=== PATIENT | female | born 1935 | race Caucasian/White ===

== ENCOUNTER → 2016-09-20 | Outpatient (CLI) | payer MEDICARE, OTHER ==
[2016-09-20 15:35] LABS: PROTHROMBIN TIME 28.8 SEC (11.4-15.4)
== END ==
LOC: OD 14:42
PROVIDERS: ATTEND Internal Medicine
DX: I48.0 Paroxysmal atrial fibrillation (principal)
CPT/HCPCS: 36415; 85610

== ENCOUNTER → 2016-11-14 | Outpatient (CLI) | payer MEDICARE, OTHER ==
[2016-11-14 14:26] LABS: PROTHROMBIN TIME 29.7 SEC (11.4-15.4)
== END ==
LOC: OD 13:34
PROVIDERS: ATTEND Internal Medicine
DX: I48.0 Paroxysmal atrial fibrillation (principal)
CPT/HCPCS: 36415; 85610

== ENCOUNTER → 2016-12-23 | Outpatient (CLI) | payer MEDICARE, OTHER ==
[2016-12-23 10:24] LABS: PROTHROMBIN TIME 26.1 SEC (11.4-15.4)
[2016-12-23 10:52] LABS: ALANINE AMINOTRANSFERASE 16 U/L (9-52); ALBUMIN 3.9 g/dL (3.5-5.0); ALKALINE PHOSPHATASE 77 U/L (38-126); ANION GAP 11 (5-19); ASPARTATE AMINO TRANSFERASE 20 U/L (14-36); BILIRUBIN,DIRECT 0.1 mg/dL (0.0-0.4); BILIRUBIN,TOTAL 0.5 mg/dL (0.2-1.3); BLOOD UREA NITROGEN 21 mg/dL (7-20); CARBON DIOXIDE 27 mmol/L (22-30); CHLORIDE 102 mmol/L (98-107); CHOLESTEROL 248.35 mg/dL (0-200); CREATININE RESULT 1.02 mg/dL (0.52-1.25); Direct HDL 49 mg/dL (>40); GLUCOSE 88 mg/dL (75-110); POTASSIUM 4.6 mmol/L (3.6-5.0); SODIUM 140.3 mmol/L (137-145); TOTAL PROTEIN 6.2 g/dL (6.3-8.2); TRIGLYCERIDES 107 mg/dL (<150)
[2016-12-23 11:03] LABS: DIRECT LDL 131 mg/dL (<100)
== END ==
LOC: OD 09:32
PROVIDERS: ATTEND Internal Medicine
DX: I48.0 Paroxysmal atrial fibrillation (principal); E78.4 Other hyperlipidemia; I25.10 Atherosclerotic heart disease of native coronary artery without angina pectoris; Z95.1 Presence of aortocoronary bypass graft; I34.0 Nonrheumatic mitral (valve) insufficiency; I10 Essential (primary) hypertension; Z79.899 Other long term (current) drug therapy; I25.2 Old myocardial infarction; I35.1 Nonrheumatic aortic (valve) insufficiency; K21.9 Gastro-esophageal reflux disease without esophagitis; R09.89 Other specified symptoms and signs involving the circulatory and respiratory systems
CPT/HCPCS: 36415; 80053; 80061; 85610

== ENCOUNTER → 2017-02-05 | Outpatient (CLI) | payer MEDICARE, OTHER ==
[2017-02-05 14:28] LABS: PROTHROMBIN TIME 35.9 SEC (11.4-15.4)
== END ==
LOC: OD 13:26
PROVIDERS: ATTEND Internal Medicine
DX: I48.0 Paroxysmal atrial fibrillation (principal)
CPT/HCPCS: 36415; 85610

== ENCOUNTER → 2017-03-25 | Outpatient (CLI) | payer MEDICARE, OTHER ==
[2017-03-25 14:31] LABS: PROTHROMBIN TIME 31.5 SEC (11.4-15.4)
== END ==
LOC: OD 13:39
PROVIDERS: ATTEND Internal Medicine
DX: I48.0 Paroxysmal atrial fibrillation (principal)
CPT/HCPCS: 36415; 85610

== ENCOUNTER 2017-04-05 23:47 | Emergency (ER) | payer MEDICARE, OTHER ==
[2017-04-06 00:20] LABS: HEMATOCRIT 28.2 % (36.0-47.0); HEMOGLOBIN 9.5 g/dL (12.0-15.5); HGB HCT DIFFERENCE 0.3; MEAN CORPUSCULAR HEMOGLOBIN 30.9 pg (27.0-33.4); MEAN CORPUSCULAR HGB CONC 33.8 g/dL (32.0-36.0); MEAN CORPUSCULAR VOLUME 91 fl (80-97); RED BLOOD COUNT 3.09 10^6/uL (3.72-5.28); RED CELL DISTRIBUTION WIDTH 14.3 % (11.5-14.0); WHITE BLOOD COUNT 6.9 10^3/uL (4.0-10.5)
[2017-04-06 00:21] LABS: VENOUS BLOOD BASE EXCESS -1.1 mmol/L; VENOUS BLOOD HCO3 22.9 mmol/L (20-32); VENOUS BLOOD PCO2 35.8 mmHg (35-63); VENOUS BLOOD PH 7.42 (7.30-7.42)
[2017-04-06 00:34] LABS: APPEARANCE,URINE CLOUDY; BILIRUBIN,URINE NEGATIVE (NEGATIVE); GLUCOSE, URINE NEGATIVE (NEGATIVE); KETONES,URINE NEGATIVE (NEGATIVE); LEUKOCYTE ESTERASE,URINE MODERATE (NEGATIVE); NITRITE,URINE POSITIVE (NEGATIVE); PROTEIN,URINE 30 mg/dL (NEGATIVE); URINE SPECIFIC GRAVITY 1.017; UROBILINOGEN,URINE NEGATIVE mg/dL (<2.0)
[2017-04-06 00:38] LABS: PROTHROMBIN TIME 41.4 SEC (11.4-15.4)
--- NOTE | 2017-04-06 00:46 | RADIOLOGY REPORT (SQ) ---
EXAM DESCRIPTION: CHEST SINGLE VIEW COMPLETED DATE/TIME: 04/06/2017 12:37 am REASON FOR STUDY: fever COMPARISON: 01/18/2015 NUMBER OF VIEWS: One view. TECHNIQUE: Single frontal radiographic view of the chest acquired. LIMITATIONS: None. FINDINGS: LUNGS AND PLEURA: No opacities, masses or pneumothorax. No pleural effusion. MEDIASTINUM AND HILAR STRUCTURES: No masses. Contour normal. HEART AND VASCULAR STRUCTURES: Heart normal in size. Normal vasculature. Prior CABG. BONES: No acute findings. HARDWARE: CABG hardware. OTHER: No other significant finding. IMPRESSION: NO SIGNIFICANT RADIOGRAPHIC FINDING IN THE CHEST. PRIOR CABG. TECHNICAL DOCUMENTATION: JOB ID: [id number] [employer]- All Rights Reserved
[2017-04-06 01:30] LABS: BAND NEUTROPHILS % (MANUAL) 2 % (3-5); BASOPHILS % (MANUAL) 1 % (0-2); EOSINOPHILS % (MANUAL) 0 % (0-6); LYMPHOCYTES % (MANUAL) 4 % (13-45); TOTAL CELLS COUNTED 100
[2017-04-06 01:31] LABS: TOXIC GRANULATION SLIGHT; TOXIC VACUOLATION PRESENT
[2017-04-06 01:33] LABS: ANISOCYTOSIS SLIGHT; OVALOCYTES SLIGHT; POIKILOCYTOSIS 1+; POLYCHROMASIA SLIGHT; TEAR DROP CELLS SLIGHT
[2017-04-06] MEDS ORDERED: SULFAMETHOXAZOLE/TRIMETHOPRIM 800-160 MG TABLET PO ONE (01:46)
--- NOTE | 2017-04-06 01:48 | ER Document Report ---
ED General - General Stated Complaint: WEAKNESS,FEVER Time Seen by Provider: 04/06/17 01:11 Mode of Arrival: Ambulatory Information source: Patient TRAVEL OUTSIDE OF THE [place] IN LAST 30 DAYS: No - HPI Patient complains to provider of: Generalized weakness, dysuria Onset: Yesterday Onset/Duration: Gradual Quality of pain: Achy Severity: Mild Associated symptoms: Body/muscle aches, Nausea, Vomiting Exacerbated by: Denies Relieved by: Denies Similar symptoms previously: Yes Recently seen / treated by doctor: Yes Notes: Patient is an 82-year-old female who presents to the emergency room complaining of generalized weakness with diffuse arthralgic pain, nausea with one episode of vomiting that occurred yesterday, as well as dysuria and urinary frequency, patient recently completed a course of Keflex but her symptoms have not improved at all, she denies any chest pain or shortness of breath, no fevers, no cough, cold or congestion, denies any blood in her urine or stools, she does report dark colored stools because of iron use, but no change in this recently, patient currently takes Coumadin alternating 3 and 4 mg every other day, reports she takes this because of a history of CVA - Related Data Allergies/Adverse Reactions: levofloxacin [From Levaquin] Allergy (Severe, Verified 01/29/13 23:55) Diarrhea Past Medical History - General Information source: Patient - Social History Smoking Status: Never Smoker Family History: None - Past Medical History Cardiac Medical History: Reports: Hx Coronary Artery Disease, Hx Heart Attack, Hx Hypercholesterolemia, Hx Hypertension Denies: Hx Atrial Fibrillation, Hx Congestive Heart Failure, Hx Peripheral Vascular Disease, Hx Heart Murmur Pulmonary Medical History: Denies: Hx Asthma, Hx Bronchitis, Hx COPD, Hx Pneumonia, Hx Tuberculosis Neurological Medical History: Reports: Hx Cerebrovascular Accident GI Medical History: Reports: Hx Gastroesophageal Reflux Disease Musculoskeltal Medical History: Reports Hx Arthritis Past Surgical History: Reports: Hx Cardiac Surgery - bypass 1993, Hx Coronary Artery Bypass Graft, Hx Coronary Stent. Denies: Hx Appendectomy, Hx Bowel Surgery, Hx Section, Hx Cholecystectomy, Hx Gastric Bypass Surgery, Hx Herniorrhaphy, Hx Hysterectomy, Hx Mastectomy, Hx Pacemaker, Hx Tonsillectomy, Hx Tubal Ligation - Immunizations Hx Diphtheria, Pertussis, Tetanus Vaccination: No Review of Systems - Review of Systems Constitutional: Weakness EENT: No symptoms reported Cardiovascular: No symptoms reported Respiratory: No symptoms reported Gastrointestinal: No symptoms reported Genitourinary: See HPI Female Genitourinary: No symptoms reported Musculoskeletal: No symptoms reported Skin: No symptoms reported Hematologic/Lymphatic: No symptoms reported Neurological/Psychological: No symptoms reported -: Yes All other systems reviewed and negative Physical Exam - Vital signs Vitals: Resp Pulse Ox 20 94 04/05/17 23:57 04/05/17 23:57 Interpretation: Normal - General General appearance: Appears well, Alert - HEENT Head: Normocephalic, Atraumatic Eyes: Normal Pupils: PERRL - Respiratory Respiratory status: No respiratory distress Chest status: Nontender Breath sounds: Normal Chest palpation: Normal - Cardiovascular Rhythm: Regular Heart sounds: Normal auscultation Murmur: No - Abdominal Inspection: Normal Distension: No distension Bowel sounds: Normal Tenderness: Nontender Organomegaly: No organomegaly - Back Back: Normal, Nontender - Extremities General upper extremity: Normal inspection, Nontender, Normal color, Normal ROM , Normal temperature General lower extremity: Normal inspection, Nontender, Normal color, Normal ROM , Normal temperature, Normal weight bearing. No: Fouzia's sign - Neurological Neuro grossly intact: Yes Cognition: Normal Orientation: AAOx4 [place] Coma Scale Eye Opening: Spontaneous Mahesh Coma Scale Verbal: Oriented Mahesh Coma Scale Motor: Obeys Commands Mahesh Coma Scale Total: 15 Speech: Normal Motor strength normal: LUE, RUE, LLE, RLE Sensory: Normal - Psychological Associated symptoms: Normal affect, Normal mood - Skin Skin Temperature: Warm Skin Moisture: Dry Skin Color: Normal Course - Re-evaluation Re-evalutation: 04/06/17 06:37 Patient resting comfortably, lab and imaging findings were discussed with patient at bedside which are consistent with a urinary tract infection, anemia which is consistent with previous labs, and an increased INR 4.08, patient was started on antibiotics for treatment of her urinary tract infection, which was actually changed because she previously took Keflex, she was started on Bactrim now, she was also advised to take Coumadin 3 mg on a daily basis instead of alternating with the 4 mg dose as her INR is elevated today, and to follow-up with her primary care provider in 1 week's time or return to the emergency room immediately if symptoms worsen, patient acknowledges understanding and agreement with this plan - Vital Signs Vital signs: Temp Pulse Resp BP Pulse Ox 98.7 F 72 18 122/72 96 04/06/17 03:09 04/06/17 03:09 04/06/17 03:09 04/06/17 03:09 04/06/17 03:09 - Laboratory Result Diagrams: 04/05/17 23:55 04/06/17 01:32 Laboratory results interpreted by me: 04/05/17 04/05/17 04/05/17 23:55 23:55 23:55 RBC 3.09 L Hgb 9.5 L Hct 28.2 L RDW 14.3 H Seg Neuts % (Manual) 90 H Band Neutrophils % 2 L Lymphocytes % (Manual) 4 L Abs Lymphs (Manual) 0.3 L PT 41.4 H Sodium BUN Creatinine Est GFR ( Amer) Est GFR (Non-Af Amer) Glucose Calcium Albumin Urine Protein 30 H Urine Blood MODERATE H Urine Nitrite POSITIVE H Ur Leukocyte Esterase MODERATE H Urine Ascorbic Acid 40 H 04/06/17 01:32 RBC Hgb Hct RDW Seg Neuts % (Manual) Band Neutrophils % Lymphocytes % (Manual) Abs Lymphs (Manual) PT Sodium 132.8 L BUN 34 H Creatinine 1.43 H Est GFR ( Amer) 43 L Est GFR (Non-Af Amer) 35 L Glucose 140 H Calcium 8.2 L Albumin 3.4 L Urine Protein Urine Blood Urine Nitrite Ur Leukocyte Esterase Urine Ascorbic Acid - Diagnostic Test Radiology reviewed: Image reviewed, Reports reviewed Discharge - Discharge Clinical Impression: UTI (urinary tract infection) Qualifiers: Urinary tract infection type: site unspecified Hematuria presence: without hematuria Qualified Code(s): N39.0 - Urinary tract infection, site not specified Condition: Stable Disposition: HOME, SELF-CARE Instructions: Trimethoprim-Sulfa ([facility]), Urinary Tract Infection ([facility]) Additional Instructions: Follow up with your primary care provider in one to 2 days. Return to the emergency room immediately if symptoms worsen or any additional concerns. Take your Coumadin at 3 mg daily instead of alternating 3 and 4 mg. Follow-up with your primary care provider for repeat INR/Coumadin level in 1 week. Prescriptions: Sulfamethoxazole/Trimethoprim [Bactrim Ds Tablet] 1 each PO BID #20 tablet Referrals: ETHAN MCMAHON MD [Primary Care Provider] - Follow up as needed
[2017-04-06 01:54] LABS: ALANINE AMINOTRANSFERASE 27 U/L (9-52); ALBUMIN 3.4 g/dL (3.5-5.0); ALKALINE PHOSPHATASE 69 U/L (38-126); ANION GAP 9 (5-19); ASPARTATE AMINO TRANSFERASE 23 U/L (14-36); BILIRUBIN,DIRECT 0.3 mg/dL (0.0-0.4); BILIRUBIN,TOTAL 0.6 mg/dL (0.2-1.3); BLOOD UREA NITROGEN 34 mg/dL (7-20); CALCIUM 8.2 mg/dL (8.4-10.2); CARBON DIOXIDE 23 mmol/L (22-30); CHLORIDE 101 mmol/L (98-107); CREATININE RESULT 1.43 mg/dL (0.52-1.25); GLUCOSE 140 mg/dL (75-110); SODIUM 132.8 mmol/L (137-145); TOTAL PROTEIN 6.3 g/dL (6.3-8.2)
[2017-04-06 03:10] VITALS: BP 122/72
== END 2017-04-06 03:11 | disposition home or self-care (01) ==
LOC: ER 23:47
DX: N39.0 Urinary tract infection, site not specified (principal); D64.9 Anemia, unspecified; I25.10 Atherosclerotic heart disease of native coronary artery without angina pectoris; I25.2 Old myocardial infarction; E78.00 Pure hypercholesterolemia, unspecified; I10 Essential (primary) hypertension; K21.9 Gastro-esophageal reflux disease without esophagitis; Z95.1 Presence of aortocoronary bypass graft; Z88.1 Allergy status to other antibiotic agents
CPT/HCPCS: 99285; 51701; 36415; 87040; 87086; 85025; 85610; 87077; 87088; 80053; 81001; 87186; 82803; 83605; 71010; A9270

== ENCOUNTER 2017-04-10 11:19 | Inpatient (IN) | payer MEDICARE, OTHER ==
--- NOTE | 2017-04-10 11:47 | ER Document Report ---
ED Medical Screen (RME) - General Chief Complaint: Nose Bleed Stated Complaint: NOSE BLEED Time Seen by Provider: 04/10/17 11:45 Notes: Patient presents with nosebleed that started this a.m. She states she recently had her INR checked past Friday and it was elevated to 4. She states that her Coumadin dose at that time was decreased from 4 mg to 3 mg. She states she also noticed blood in her urine this morning. She states she does not feel lightheaded or dizzy. TRAVEL OUTSIDE OF THE [place] IN LAST 30 DAYS: No - Related Data Allergies/Adverse Reactions: levofloxacin [From Levaquin] Allergy (Severe, Verified 04/10/17 11:26) Diarrhea Past Medical History - Past Medical History Cardiac Medical History: Reports: Hx Coronary Artery Disease, Hx Heart Attack, Hx Hypercholesterolemia, Hx Hypertension Denies: Hx Atrial Fibrillation, Hx Congestive Heart Failure, Hx Peripheral Vascular Disease, Hx Heart Murmur Pulmonary Medical History: Denies: Hx Asthma, Hx Bronchitis, Hx COPD, Hx Pneumonia, Hx Tuberculosis Neurological Medical History: Reports: Hx Cerebrovascular Accident Renal/ Medical History: Denies: Hx Peritoneal Dialysis GI Medical History: Reports: Hx Gastroesophageal Reflux Disease Musculoskeltal Medical History: Reports Hx Arthritis Past Surgical History: Reports: Hx Cardiac Surgery - bypass 1993, Hx Coronary Artery Bypass Graft, Hx Coronary Stent. Denies: Hx Appendectomy, Hx Bowel Surgery, Hx Section, Hx Cholecystectomy, Hx Gastric Bypass Surgery, Hx Herniorrhaphy, Hx Hysterectomy, Hx Mastectomy, Hx Pacemaker, Hx Tonsillectomy, Hx Tubal Ligation - Immunizations Hx Diphtheria, Pertussis, Tetanus Vaccination: No Physical Exam - Vital signs Vitals: Temp Pulse Resp BP Pulse Ox 97.9 F 73 16 151/64 H 98 04/10/17 11:27 04/10/17 11:27 04/10/17 11:27 04/10/17 11:27 04/10/17 11:27 Course - Vital Signs Vital signs: Temp Pulse Resp BP Pulse Ox 97.9 F 73 16 151/64 H 98 04/10/17 11:27 04/10/17 11:27 04/10/17 11:27 04/10/17 11:27 04/10/17 11:27
[2017-04-10 12:40] LABS: ABSOLUTE EOSINOPHILS # (AUTO) 0.1 10^3/uL (0.0-0.6); ABSOLUTE LYMPHOCYTES (AUTO) 0.4 10^3/uL (0.5-4.7); ABSOLUTE MONOCYTES (AUTO) 0.4 10^3/uL (0.1-1.4); ABSOLUTE NEUT (AUTO) 4.5 10^3/uL (1.7-8.2); BASOPHILS % (AUTO) 0.5 % (0-2); EOSINOPHILS % (AUTO) 1.4 % (0-6); HEMATOCRIT 27.5 % (36.0-47.0); HEMOGLOBIN 9.3 g/dL (12.0-15.5); HGB HCT DIFFERENCE 0.4; LYMPHOCYTES % (AUTO) 8.2 % (13-45); MEAN CORPUSCULAR HEMOGLOBIN 30.3 pg (27.0-33.4); MEAN CORPUSCULAR VOLUME 89 fl (80-97); MONOCYTES % (AUTO) 8.2 % (3-13); RED BLOOD COUNT 3.08 10^6/uL (3.72-5.28); SEGMENTED NEUTROPHILS % (AUTO) 81.7 % (42-78); WHITE BLOOD COUNT 5.5 10^3/uL (4.0-10.5)
[2017-04-10 12:50] LABS: APPEARANCE,URINE CLOUDY; BILIRUBIN,URINE NEGATIVE (NEGATIVE); GLUCOSE, URINE NEGATIVE (NEGATIVE); KETONES,URINE NEGATIVE (NEGATIVE); LEUKOCYTE ESTERASE,URINE TRACE (NEGATIVE); NITRITE,URINE NEGATIVE (NEGATIVE); PROTEIN,URINE 100 mg/dL (NEGATIVE); UROBILINOGEN,URINE NEGATIVE mg/dL (<2.0)
[2017-04-10 13:01] LABS: ANION GAP 14 (5-19); BLOOD UREA NITROGEN 28 mg/dL (7-20); CALCIUM 8.6 mg/dL (8.4-10.2); CARBON DIOXIDE 23 mmol/L (22-30); CHLORIDE 98 mmol/L (98-107); CREATININE RESULT 1.32 mg/dL (0.52-1.25); GLUCOSE 87 mg/dL (75-110); POTASSIUM 4.8 mmol/L (3.6-5.0)
[2017-04-10] MEDS ORDERED: OXYMETAZOLINE HCL 0.05% NASAL SPRAY 15 ML BOTTLE NASL ONE (13:40)
[2017-04-10 14:12] LABS: PROTHROMBIN TIME > 120.0 SEC (11.4-15.4)
[2017-04-10] MEDS ORDERED: PHYTONADIONE 5 MG TABLET PO ONE (14:18)
--- NOTE | 2017-04-10 15:04 | ER Document Report ---
ED ENT - General Chief Complaint: Nose Bleed Stated Complaint: NOSE BLEED Time Seen by Provider: 04/10/17 11:45 Mode of Arrival: Ambulatory Information source: Patient Notes: Patient is an 82-year-old female who presents to the ER today for nosebleed and hematuria that she noticed this morning at 7:30 AM. Patient is on warfarin and has a history of stroke, possible A. fib, and patient was told on the of this month here at the emergency department to decrease her warfarin to 2 mg every other day and 3 mg on the other days. It is unknown if she has been following this protocol as she cannot really tell me how she takes the warfarin today. She mentioned something about twice a day and then goes back to once a day. Her INR at that time was 4.08. She has not been doing anything for the nosebleed, not holding any pressure, just blotting it with a paper towel all morning. TRAVEL OUTSIDE OF THE [place] IN LAST 30 DAYS: No - Related Data Allergies/Adverse Reactions: levofloxacin [From Lev[employer] Systemsuin] Allergy (Severe, Verified 04/10/17 11:26) Diarrhea Home Medications: Current Home Medications Cetirizine HCl [Zyrtec] 10 mg PO DAILY 04/10/17 [History] Cyclosporine [Restasis Multidose] 1 drop OP BID 04/10/17 [History] Docusate Sodium [Colace 100 mg Capsule] 100 mg PO BID 04/10/17 [History] Esomeprazole Magnesium [Nexium] 40 mg PO DAILY 04/10/17 [History] Ferrous Sulfate 325 mg PO DAILY 04/10/17 [History] [place]-3 Fatty Acids/Fish Oil [Fish Oil 1,000 Mg Capsule] 4 each PO DAILY [History] Tramadol HCl 50 mg PO Q8H 04/10/17 [History] Ubidecarenone [Co Q-10] 2 tab PO DAILY 04/10/17 [History] Valsartan [Diovan 160 mg Tablet] 160 mg PO DAILY 04/10/17 [History] Warfarin Sodium [Coumadin] 3 mg PO DAILY 04/10/17 [History] Past Medical History - General Information source: Patient - Social History Smoking Status: Never Smoker Frequency of alcohol use: None Drug Abuse: None Family History: None Patient has suicidal ideation: No Patient has homicidal ideation: No - Past Medical History Cardiac Medical History: Reports: Hx Coronary Artery Disease, Hx Heart Attack, Hx Hypercholesterolemia, Hx Hypertension Denies: Hx Atrial Fibrillation, Hx Congestive Heart Failure, Hx Peripheral Vascular Disease, Hx Heart Murmur Pulmonary Medical History: Denies: Hx Asthma, Hx Bronchitis, Hx COPD, Hx Pneumonia, Hx Tuberculosis Neurological Medical History: Reports: Hx Cerebrovascular Accident Renal/ Medical History: Denies: Hx Peritoneal Dialysis GI Medical History: Reports: Hx Gastroesophageal Reflux Disease Musculoskeltal Medical History: Reports Hx Arthritis Past Surgical History: Reports: Hx Cardiac Surgery - bypass 1993, Hx Coronary Artery Bypass Graft, Hx Coronary Stent. Denies: Hx Appendectomy, Hx Bowel Surgery, Hx Section, Hx Cholecystectomy, Hx Gastric Bypass Surgery, Hx Herniorrhaphy, Hx Hysterectomy, Hx Mastectomy, Hx Pacemaker, Hx Tonsillectomy, Hx Tubal Ligation - Immunizations Hx Diphtheria, Pertussis, Tetanus Vaccination: No Review of Systems - Review of Systems Constitutional: No symptoms reported EENT: See HPI Cardiovascular: No symptoms reported Respiratory: No symptoms reported Gastrointestinal: No symptoms reported Genitourinary: See HPI Female Genitourinary: No symptoms reported Musculoskeletal: No symptoms reported Skin: No symptoms reported Hematologic/Lymphatic: See HPI Neurological/Psychological: No symptoms reported Physical Exam - Vital signs Vitals: Temp Pulse Resp BP Pulse Ox 97.9 F 73 16 151/64 H 98 04/10/17 11:27 04/10/17 11:27 04/10/17 11:27 04/10/17 11:27 04/10/17 11:27 - Notes Notes: PHYSICAL EXAMINATION: GENERAL: Well-appearing and in no acute distress. HEAD: Atraumatic, normocephalic. EYES: Pupils equal round and reactive to light, extraocular movements intact, sclera anicteric, conjunctiva are normal. ENT: ear canals without erythema or foreign body, TMs pearly orellana with good bony landmarks, left nare with minimal bright red blood, oropharynx with minimal blood in posterior pharynx Moist mucous membranes. NECK: Normal range of motion, supple without lymphadenopathy LUNGS: CTAB and equal. No wheezes rales or rhonchi. HEART: Regular rate and rhythm without murmurs ABDOMEN: Soft, no tenderness. No guarding, no rebound rectal: normal tone, no bleeding noted BACK: no vertebral tenderness, normal ROM GI/: no CVA tenderness EXTREMITIES: Normal range of motion, no pitting edema. No cyanosis. NEUROLOGICAL: Cranial nerves grossly intact. Normal sensory/motor exams. PSYCH: Normal mood, normal affect. SKIN: Warm, Dry, normal turgor, no rashes or lesions noted Course - Re-evaluation Re-evalutation: 04/10/17 15:47 Controlled with Afrin and cotton balls that were left in for greater than half an hour, stool occult was negative for blood. Vital signs are all stable and lab work is unremarkable, hemoglobin is essentially the same as on the of this month, 9.3. Patient's INR is not calculable with a PT greater than 120. They did call initially with the first draw tell the nurse verbally that the INR was 15.83. Patient was given oral vitamin K at this time. I did call Dr. Campoverde, agrees to accept patient at this time and advises fresh frozen plasma and another 5 mg of subcutaneous vitamin K. Nosebleed has stopped. 04/10/17 15:49 04/10/17 18:13 - Vital Signs Vital signs: Temp Pulse Resp BP Pulse Ox 97.8 F 62 14 132/85 H 93 04/10/17 15:29 04/10/17 15:29 04/10/17 17:45 04/10/17 17:45 04/10/17 17:45 - Laboratory Result Diagrams: 04/10/17 12:00 04/10/17 12:00 Laboratory results interpreted by me: 04/10/17 04/10/17 04/10/17 12:00 12:00 12:00 RBC 3.08 L Hgb 9.3 L Hct 27.5 L Seg Neutrophils % 81.7 H Lymphocytes % 8.2 L Absolute Lymphocytes 0.4 L PT Sodium 135.0 L BUN 28 H Creatinine 1.32 H Est GFR ( Amer) 47 L Est GFR (Non-Af Amer) 39 L Urine Protein 100 H Urine Blood LARGE H Ur Leukocyte Esterase TRACE H Urine Ascorbic Acid 40 H 04/10/17 13:22 RBC Hgb Hct Seg Neutrophils % Lymphocytes % Absolute Lymphocytes PT > 120.0 H* Sodium BUN Creatinine Est GFR ( Amer) Est GFR (Non-Af Amer) Urine Protein Urine Blood Ur Leukocyte Esterase Urine Ascorbic Acid Discharge - Discharge Clinical Impression: Elevated INR, Nosebleed Warfarin toxicity Qualifiers: Encounter type: initial encounter Injury intent: accidental or unintentional Qualified Code(s): T45.511A - Poisoning by anticoagulants, accidental ( unintentional), initial encounter Hematuria Qualifiers: Hematuria type: unspecified type Qualified Code(s): R31.9 - Hematuria, unspecified Admitting Provider: Hospitalist Unit Admitted: [facility]
[2017-04-10] MEDS ORDERED: PHYTONADIONE INJ 10 MG/1 ML AMPULE SUBCUT ONE (15:39)
[2017-04-10] MEDS ORDERED: NORMAL SALINE 250 ML IV PRN ×3 (15:39→22:27)
--- NOTE | 2017-04-10 17:23 | EKG REPORT ---
SEVERITY:- NORMAL ECG - SINUS RHYTHM : Confirmed by: Mary Eugene MD 10-Apr-2017 17:22:00
--- NOTE | 2017-04-10 17:42 | PDOC H&P ---
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 The patient was seen in the emergency room a few days ago for urinary symptoms found to have a urinary tract infection and was given Bactrim. At that time her INR was 4 and was told to decrease her warfarin to 3 mg a day which the patient complied. Earlier today she developed nosebleeding. Subsequently this was followed by gross hematuria. The patient then was brought to the emergency room for evaluation. The INR reportedly was immeasurable with a PT greater than 120. The patient was given vitamin K and was referred for admission. Patient denies any headache or dizziness. Denies any hemoptysis nor any melena hematochezia or hematemesis. Patient denies any chills or fever associated with a urinary tract infection nor any more dysuria. On review of her culture perform about 45 days ago showing E. coli in the urine as well as in the blood. Organism is sensitive to Bactrim. Past Medical History Cardiac Medical History: Reports: Coronary Artery Disease, Myocardial Infarction , Hyperlipidema, Hypertension Denies: Atrial Fibrillation, Congestive Heart Failure, Peripheral Vascular Disease, Heart Murmur Pulmonary Medical History: Denies: Asthma, Bronchitis, Chronic Obstructive Pulmonary Disease (COPD), Pneumonia, Tuberculosis Neurological Medical History: Reports: Ischemic CVA GI Medical History: Reports: Gastroesophageal Reflux Disease Musculoskeltal Medical History: Reports: Arthritis Hematology: Denies: Anemia Past Surgical History Past Surgical History: Reports: Coronary Artery Bypass Graft, Coronary Stent Denies: Appendectomy, Section, Cholecystectomy, Gastric Bypass Surgery, Herniorrhaphy, Hysterectomy, Mastectomy, Pacemaker, Tonsillectomy, Tubal Ligation Social History Information Source: Patient Smoking Status: Never Smoker Frequency of Alcohol Use: None Hx Recreational Drug Use: No Family History Family History: None Parental Family History Reviewed: Yes Children Family History Reviewed: Yes Sibling(s) Family History Reviewed.: Yes Medication/Allergy Home Medications: Ascorbic Acid [Vitamin C 500 Mg Tablet] 1,000 mg PO DAILY 11/12/11 Aspirin [Ecotrin 81 mg EC Tablet] 81 mg PO DAILY 11/12/11 Isosorbide Mononitrate [Imdur] 120 mg PO DAILY 11/12/11 Nitroglycerin [Nitrolingual] 4.9 gm TL PRN PRN 11/12/11 Ranolazine [Ranexa 500 Mg Tab.Sr] 500 mg PO DAILY 11/12/11 Cetirizine HCl [Zyrtec] 10 mg PO DAILY 04/10/17 Cyclosporine [Restasis Multidose] 1 drop OP BID 04/10/17 Docusate Sodium [Colace 100 mg Capsule] 100 mg PO BID 04/10/17 Esomeprazole Magnesium [Nexium] 40 mg PO DAILY 04/10/17 Ferrous Sulfate 325 mg PO DAILY 04/10/17 [place]-3 Fatty Acids/Fish Oil [Fish Oil 1,000 Mg Capsule] 4 each PO DAILY Tramadol HCl 50 mg PO Q8H 04/10/17 Ubidecarenone [Co Q-10] 2 tab PO DAILY 04/10/17 Valsartan [Diovan 160 mg Tablet] 160 mg PO DAILY 04/10/17 Warfarin Sodium [Coumadin] 3 mg PO DAILY 04/10/17 Allergies/Adverse Reactions: levofloxacin [From Levaquin] Allergy (Severe, Verified 04/10/17 11:26) Diarrhea Review of Systems Constitutional: ABSENT: chills, fever(s), headache(s), weakness, weight gain, weight loss Eyes: ABSENT: visual disturbances Ears: ABSENT: hearing changes Nose, Mouth, and Throat: ABSENT: mouth pain, sore throat Cardiovascular: ABSENT: chest pain, dyspnea on exertion, edema, orthropnea, palpitations Respiratory: ABSENT: cough, dyspnea, hemoptysis, sputum Gastrointestinal: ABSENT: abdominal pain, constipation, diarrhea, hematemesis, hematochezia, melena, nausea, vomiting Genitourinary: PRESENT: hematuria. ABSENT: dysuria Musculoskeletal: ABSENT: joint swelling Integumentary: ABSENT: pruritus, rash, wounds Neurological: ABSENT: abnormal gait, abnormal speech, confusion, dizziness, focal weakness - none new, syncope Psychiatric: ABSENT: anxiety, depression, homidical ideation, suicidal ideation Endocrine: ABSENT: cold intolerance, heat intolerance, polydipsia, polyuria Hematologic/Lymphatic: PRESENT: easy bleeding, easy bruising Physical Exam Vital Signs: Temp Pulse Resp BP Pulse Ox 97.8 F 62 16 160/64 H 96 07/27/17 15:29 04/10/17 15:29 04/10/17 15:29 04/10/17 15:29 04/10/17 15:29 General appearance: PRESENT: no acute distress, cooperative, obese Head exam: PRESENT: atraumatic, normocephalic Eye exam: PRESENT: conjunctiva pink, EOMI, PERRLA. ABSENT: scleral icterus Ear exam: PRESENT: normal external ear exam. ABSENT: drainage Mouth exam: PRESENT: moist, neck supple, tongue midline Throat exam: ABSENT: post pharyngeal erythema, tonsillar erythema Neck exam: ABSENT: carotid bruit, JVD, lymphadenopathy, thyromegaly Respiratory exam: PRESENT: clear to auscultation wojciech. ABSENT: rales, rhonchi, wheezes Cardiovascular exam: PRESENT: RRR, systolic murmur - Aortic area. ABSENT: diastolic murmur, rubs Pulses: PRESENT: normal dorsalis pedis pul Vascular exam: PRESENT: normal capillary refill GI/Abdominal exam: PRESENT: normal bowel sounds, soft. ABSENT: distended, guarding, mass, organolmegaly, rebound, tenderness Rectal exam: PRESENT: deferred Extremities exam: PRESENT: full ROM. ABSENT: calf tenderness, clubbing, pedal edema Neurological exam: PRESENT: alert, awake, oriented to person, oriented to place , oriented to time, oriented to situation, CN II-XII grossly intact. ABSENT: motor sensory deficit Psychiatric exam: PRESENT: appropriate affect, normal mood. ABSENT: homicidal ideation, suicidal ideation Skin exam: PRESENT: dry, intact, warm. ABSENT: cyanosis, rash Results Laboratory Results: 04/10/17 16:12 Blood Type O POSITIVE Antibody Screen NEGATIVE Assessment & Plan - Diagnosis (1) Sepsis Qualifiers: Sepsis type: Escherichia coli Qualified Code(s): A41.51 - Sepsis due to Escherichia coli [E. coli] Is this a current diagnosis for this admission?: Yes (2) Hematuria Qualifiers: Hematuria type: unspecified type Qualified Code(s): R31.9 - Hematuria, unspecified Is this a current diagnosis for this admission?: Yes (4) Elevated INR Is this a current diagnosis for this admission?: Yes (5) Warfarin toxicity Qualifiers: Encounter type: initial encounter Injury intent: accidental or unintentional Qualified Code(s): T45.511A - Poisoning by anticoagulants, accidental (unintentional), initial encounter Is this a current diagnosis for this admission?: Yes (6) UTI (urinary tract infection) Qualifiers: Urinary tract infection type: site unspecified Hematuria presence: without hematuria Qualified Code(s): N39.0 - Urinary tract infection, site not specified Is this a current diagnosis for this admission?: Yes (7) Coronary artery disease Qualifiers: Coronary Disease-Associated Artery/Lesion type: [place] artery [place] vs. transplanted heart: [place] heart Associated angina: without angina Qualified Code(s): I25.10 - Atherosclerotic heart disease of [place] coronary artery without angina pectoris Is this a current diagnosis for this admission?: Yes (8) Hyperlipidemia Qualifiers: Hyperlipidemia type: unspecified Qualified Code(s): E78.5 - Hyperlipidemia, unspecified Is this a current diagnosis for this admission?: Yes (9) Essential hypertension Is this a current diagnosis for this admission?: Yes (10) GERD (gastroesophageal reflux disease) Qualifiers: Esophagitis presence: without esophagitis Qualified Code(s): K21.9 - Gastro-esophageal reflux disease without esophagitis Is this a current diagnosis for this admission?: Yes (11) History of stroke Is this a current diagnosis for this admission?: Yes - Time Time Spent: 50 to 70 Minutes - Inpatient Certification Based on my medical assessment, after consideration of the patient's comorbidities, presenting symptoms, or acuity I expect that the services needed warrant INPATIENT care.: Yes I certify that my determination is in accordance with my understanding of Medicare's requirements for reasonable and necessary INPATIENT services [42 CFR 412.3e].: Yes Medical Necessity: Need Close Monitoring Due to Risk of Patient Decompensation, Need For IV Fluids, Need for IV Antibiotics, Risk of Complication if Not Cared For in Hospital Post Hospital Care: D/C Professional Caster Documentation - Plan Summary Plan Summary: We are going to serially monitor hemoglobin hematocrit. We will transfuse as needed if it falls below 8. In the meantime we will transfuse 2 units of FFP. Oral vitamin K has already been given in the emergency room. We will monitor PT /INR closely. We will hold her aspirin as well. I will continue the patient's cardiac medications however at this time. We will continue to monitor. In the meantime we will resend cultures of the blood and urine and begin the patient on ceftriaxone. Further testing depends on the initial evaluation as outlined above.
[2017-04-10] MEDS ORDERED: CYCLOSPORINE OP SCH (18:00)
[2017-04-10] MEDS ORDERED: NORMAL SALINE 1000 ML 1,000 ML IV PRN (18:02)
[2017-04-10] MEDS: DOCUSATE SODIUM 100 MG CAPSULE PO SCH (19:53)
[2017-04-10] MEDS: CEFTRIAXONE 1 GM/D5W RTU 50 ML IV SCH (19:54)
--- NOTE | 2017-04-10 22:31 | Progress Note ---
Provider Note Provider Note: 04/10/17 Contacted by patient's floor nurse that blood transfusion permit had not been signed; ER staff had earlier ordered 2 units FFP. At 10:20 PM, I went to the patient's bedside. Her floor nurse Tucker present. Still having small amounts of epistaxis, and Per nursing staff, hematuria. Scheduled to receive 2 units of fresh frozen plasma. Distant history of prior blood transfusion, without problems. Patient understands the risks associated with blood product transfusion to include, but not be limited to, transfusion reaction, which can be fatal, along with hepatitis and/or HIV viruses. Discussed in lay person's terms. Her conversation is lucid and appropriate. Patient agrees to undergo transfusion of blood products.
[2017-04-10 22:50] LABS: HEMOGLOBIN 9.1 g/dL (12.0-15.5); HGB HCT DIFFERENCE 0.3; MEAN CORPUSCULAR HEMOGLOBIN 30.4 pg (27.0-33.4); MEAN CORPUSCULAR HGB CONC 33.9 g/dL (32.0-36.0); MEAN CORPUSCULAR VOLUME 90 fl (80-97); RED BLOOD COUNT 3.01 10^6/uL (3.72-5.28); RED CELL DISTRIBUTION WIDTH 14.1 % (11.5-14.0); WHITE BLOOD COUNT 6.2 10^3/uL (4.0-10.5)
[2017-04-11 06:16] LABS: PARTIAL THROMBOPLASTIN TIME 63.2 SEC (23.5-35.8)
[2017-04-11 06:23] LABS: HEMATOCRIT 22.7 % (36.0-47.0); HGB HCT DIFFERENCE 0.7; MEAN CORPUSCULAR HEMOGLOBIN 30.7 pg (27.0-33.4); MEAN CORPUSCULAR HGB CONC 34.4 g/dL (32.0-36.0); MEAN CORPUSCULAR VOLUME 89 fl (80-97); RED BLOOD COUNT 2.54 10^6/uL (3.72-5.28); RED CELL DISTRIBUTION WIDTH 13.9 % (11.5-14.0)
[2017-04-11 06:31] LABS: PROTHROMBIN TIME 22.6 SEC (11.4-15.4)
[2017-04-11 06:51] LABS: HEMOGLOBIN 7.8 g/dL (12.0-15.5)
[2017-04-11] MEDS ORDERED: NORMAL SALINE 250 ML IV PRN ×2 (06:58)
[2017-04-11] MEDS ORDERED: NORMAL SALINE 1000 ML 1,000 ML IV PRN (09:28)
--- NOTE | 2017-04-11 09:34 | PDOC PROGRESS REPORT ---
Subjective Progress Note for:: 04/11/17 Subjective:: Patient reports nosebleeding happen again and never stop since yesterday. Hematuria however is less. Denies chills or fever, nausea or vomiting, back pain, diarrhea, shortness of breath nor chest pain. school lunch monitor remained sinus. No reported atrial fibrillation. Physical Exam Vital Signs: Temp Pulse Resp BP Pulse Ox 98.2 F 88 16 133/69 H 99 04/11/17 08:50 04/11/17 08:50 04/11/17 08:50 04/11/17 08:50 04/11/17 08:50 Intake & Output 04/10/17 04/11/17 04/12/17 06:59 06:59 06:59 Intake Total 1208 0 Output Total 1150 Balance 58 0 Weight 80.4 kg General appearance: PRESENT: no acute distress, cooperative, obese Head exam: PRESENT: normocephalic Eye exam: PRESENT: EOMI Mouth exam: PRESENT: moist, neck supple Neck exam: ABSENT: JVD Respiratory exam: PRESENT: clear to auscultation wojciech. ABSENT: rhonchi, wheezes Cardiovascular exam: PRESENT: irregular rhythm, RRR. ABSENT: gallop GI/Abdominal exam: PRESENT: normal bowel sounds, soft. ABSENT: distended, tenderness Extremities exam: ABSENT: pedal edema Neurological exam: PRESENT: alert, awake, oriented to situation Skin exam: PRESENT: dry, warm. ABSENT: cyanosis Results Laboratory Results: 04/11/17 05:53 04/10/17 04/11/17 22:37 05:53 WBC 6.2 7.0 RBC 3.01 L 2.54 L Hgb 9.1 L 7.8 L Hct 27.0 L 22.7 L MCV 90 89 MCH 30.4 30.7 MCHC 33.9 34.4 RDW 14.1 H 13.9 Plt Count 169 154 Assessment & Plan - Diagnosis (1) Sepsis Qualifiers: Sepsis type: Escherichia coli Qualified Code(s): A41.51 - Sepsis due to Escherichia coli [E. coli] Is this a current diagnosis for this admission?: Yes (2) Hematuria Qualifiers: Hematuria type: unspecified type Qualified Code(s): R31.9 - Hematuria, unspecified Is this a current diagnosis for this admission?: Yes (4) Elevated INR Is this a current diagnosis for this admission?: Yes (5) Warfarin toxicity Qualifiers: Encounter type: initial encounter Injury intent: accidental or unintentional Qualified Code(s): T45.511A - Poisoning by anticoagulants, accidental (unintentional), initial encounter Is this a current diagnosis for this admission?: Yes (6) UTI (urinary tract infection) Qualifiers: Urinary tract infection type: site unspecified Hematuria presence: without hematuria Qualified Code(s): N39.0 - Urinary tract infection, site not specified Is this a current diagnosis for this admission?: Yes (7) Coronary artery disease Qualifiers: Coronary Disease-Associated Artery/Lesion type: [place] artery [place] vs. transplanted heart: [place] heart Associated angina: without angina Qualified Code(s): I25.10 - Atherosclerotic heart disease of [place] coronary artery without angina pectoris Is this a current diagnosis for this admission?: Yes (8) Hyperlipidemia Qualifiers: Hyperlipidemia type: unspecified Qualified Code(s): E78.5 - Hyperlipidemia, unspecified Is this a current diagnosis for this admission?: Yes (9) Essential hypertension Is this a current diagnosis for this admission?: Yes (10) GERD (gastroesophageal reflux disease) Qualifiers: Esophagitis presence: without esophagitis Qualified Code(s): K21.9 - Gastro-esophageal reflux disease without esophagitis Is this a current diagnosis for this admission?: Yes (11) History of stroke Is this a current diagnosis for this admission?: Yes - Time Time Spent with patient: 25-34 minutes - Plan Summary Plan Summary: Continue antibiotic. Follow cultures. Transfuse packed RBC. We will recheck PT/INR later this afternoon. Subsequently check it on a daily basis. Continue supportive care. Monitor hematocrit. Monitor for spontaneous hemorrhage.
[2017-04-11] MEDS ORDERED: ISOSORBIDE MONONITRATE 120 MG PO SCH (10:00)
[2017-04-11] MEDS ORDERED: (PENDING PHARMACY ID) (Cetirizine Hcl [Zyrtec] 10 MG) PO SCH (10:00)
[2017-04-11] MEDS: DOCUSATE SODIUM 100 MG CAPSULE PO SCH ×2 (11:09→18:26)
[2017-04-11] MEDS: RANOLAZINE 500 MG TAB.SR.12H PO SCH (11:12)
[2017-04-11] MEDS: LANSOPRAZOLE 30 MG TAB.RAP.DR PO SCH (11:13)
[2017-04-11] MEDS: ASCORBIC ACID 500 MG TABLET PO SCH (11:14)
[2017-04-11] MEDS: CETIRIZINE 10 MG TABLET PO SCH (11:15)
[2017-04-11] MEDS: ISOSORBIDE MONONITRATE 60 MG TAB.ER.24H PO SCH (11:15)
[2017-04-11] MEDS: CYCLOSPORINE 0.05% OPH EMULSIO 0.4 ML DROPERETTE OU SCH ×2 (11:15→18:20)
[2017-04-11 14:36] LABS: HEMATOCRIT 27.4 % (36.0-47.0); HEMOGLOBIN 9.5 g/dL (12.0-15.5); HGB HCT DIFFERENCE 1.1; MEAN CORPUSCULAR HEMOGLOBIN 30.8 pg (27.0-33.4); MEAN CORPUSCULAR HGB CONC 34.9 g/dL (32.0-36.0); MEAN CORPUSCULAR VOLUME 88 fl (80-97); WHITE BLOOD COUNT 10.1 10^3/uL (4.0-10.5)
[2017-04-11 14:48] LABS: PROTHROMBIN TIME 19.5 SEC (11.4-15.4)
[2017-04-11 14:49] LABS: PARTIAL THROMBOPLASTIN TIME 51.5 SEC (23.5-35.8)
[2017-04-11 18:13] LABS: HEMATOCRIT 26.9 % (36.0-47.0); HEMOGLOBIN 9.3 g/dL (12.0-15.5); MEAN CORPUSCULAR HEMOGLOBIN 30.6 pg (27.0-33.4); MEAN CORPUSCULAR HGB CONC 34.6 g/dL (32.0-36.0); MEAN CORPUSCULAR VOLUME 89 fl (80-97); RED BLOOD COUNT 3.04 10^6/uL (3.72-5.28); RED CELL DISTRIBUTION WIDTH 14.2 % (11.5-14.0); WHITE BLOOD COUNT 9.1 10^3/uL (4.0-10.5)
[2017-04-11] MEDS: CEFTRIAXONE 1 GM/D5W RTU 50 ML IV SCH (18:26)
[2017-04-12 04:59] LABS: HEMATOCRIT 24.4 % (36.0-47.0); HEMOGLOBIN 8.6 g/dL (12.0-15.5); HGB HCT DIFFERENCE 1.4; MEAN CORPUSCULAR HEMOGLOBIN 31.1 pg (27.0-33.4); MEAN CORPUSCULAR HGB CONC 35.2 g/dL (32.0-36.0); MEAN CORPUSCULAR VOLUME 88 fl (80-97); RED BLOOD COUNT 2.76 10^6/uL (3.72-5.28); RED CELL DISTRIBUTION WIDTH 14.1 % (11.5-14.0); WHITE BLOOD COUNT 7.7 10^3/uL (4.0-10.5)
[2017-04-12 05:12] LABS: PROTHROMBIN TIME 19.2 SEC (11.4-15.4)
[2017-04-12] MEDS: ISOSORBIDE MONONITRATE 60 MG TAB.ER.24H PO SCH (10:08)
[2017-04-12] MEDS: CETIRIZINE 10 MG TABLET PO SCH (10:09)
[2017-04-12] MEDS: DOCUSATE SODIUM 100 MG CAPSULE PO SCH ×2 (10:09→18:27)
[2017-04-12] MEDS: RANOLAZINE 500 MG TAB.SR.12H PO SCH (10:09)
[2017-04-12] MEDS: LANSOPRAZOLE 30 MG TAB.RAP.DR PO SCH (10:09)
[2017-04-12] MEDS: ASCORBIC ACID 500 MG TABLET PO SCH (10:09)
[2017-04-12] MEDS: CYCLOSPORINE 0.05% OPH EMULSIO 0.4 ML DROPERETTE OU SCH ×2 (10:14→18:50)
[2017-04-12] MEDS ORDERED: NORMAL SALINE 1000 ML 1,000 ML IV PRN (10:42)
--- NOTE | 2017-04-12 10:46 | PDOC PROGRESS REPORT ---
Subjective Progress Note for:: 04/12/17 Subjective:: Nosebleeding resolved, no hematuria. Denies melena hematochezia or hematemesis. No hemoptysis. Denies PND orthopnea, no shortness of breath chills nor fever. Physical Exam Vital Signs: Temp Pulse Resp BP Pulse Ox 99.1 F 82 16 138/58 H 98 04/12/17 08:07 04/12/17 08:07 04/12/17 08:07 04/12/17 08:07 04/12/17 08:07 Intake & Output 04/11/17 04/12/17 04/13/17 06:59 06:59 06:59 Intake Total 1208 1873 Output Total 1150 850 Balance 58 1023 Weight 80.4 kg 78.2 kg General appearance: PRESENT: no acute distress, cooperative, obese Head exam: PRESENT: normocephalic Eye exam: PRESENT: EOMI Mouth exam: PRESENT: moist, neck supple Neck exam: ABSENT: JVD Respiratory exam: PRESENT: clear to auscultation wojciech. ABSENT: rhonchi, wheezes Cardiovascular exam: PRESENT: RRR. ABSENT: gallop GI/Abdominal exam: PRESENT: normal bowel sounds, soft. ABSENT: distended, tenderness Extremities exam: PRESENT: other - Trace lower extremity edema bilateral Neurological exam: PRESENT: alert, awake, oriented to situation Skin exam: PRESENT: dry, warm. ABSENT: cyanosis Results Laboratory Results: 04/12/17 04:16 04/11/17 04/11/17 04/12/17 13:42 17:48 04:16 WBC 10.1 9.1 7.7 RBC 3.10 L 3.04 L 2.76 L Hgb 9.5 L 9.3 L 8.6 L Hct 27.4 L 26.9 L 24.4 L MCV 88 89 88 MCH 30.8 30.6 31.1 MCHC 34.9 34.6 35.2 RDW 14.0 14.2 H 14.1 H Plt Count 223 215 179 Assessment & Plan - Diagnosis (1) Sepsis Qualifiers: Sepsis type: Escherichia coli Qualified Code(s): A41.51 - Sepsis due to Escherichia coli [E. coli] Is this a current diagnosis for this admission?: Yes (2) Hematuria Qualifiers: Hematuria type: unspecified type Qualified Code(s): R31.9 - Hematuria, unspecified Is this a current diagnosis for this admission?: Yes (4) Elevated INR Is this a current diagnosis for this admission?: Yes (5) Warfarin toxicity Qualifiers: Encounter type: initial encounter Injury intent: accidental or unintentional Qualified Code(s): T45.511A - Poisoning by anticoagulants, accidental (unintentional), initial encounter Is this a current diagnosis for this admission?: Yes (6) UTI (urinary tract infection) Qualifiers: Urinary tract infection type: site unspecified Hematuria presence: without hematuria Qualified Code(s): N39.0 - Urinary tract infection, site not specified Is this a current diagnosis for this admission?: Yes (7) Coronary artery disease Qualifiers: Coronary Disease-Associated Artery/Lesion type: [place] artery [place] vs. transplanted heart: [place] heart Associated angina: without angina Qualified Code(s): I25.10 - Atherosclerotic heart disease of [place] coronary artery without angina pectoris Is this a current diagnosis for this admission?: Yes (8) Hyperlipidemia Qualifiers: Hyperlipidemia type: unspecified Qualified Code(s): E78.5 - Hyperlipidemia, unspecified Is this a current diagnosis for this admission?: Yes (9) Essential hypertension Is this a current diagnosis for this admission?: Yes (10) GERD (gastroesophageal reflux disease) Qualifiers: Esophagitis presence: without esophagitis Qualified Code(s): K21.9 - Gastro-esophageal reflux disease without esophagitis Is this a current diagnosis for this admission?: Yes (11) History of stroke Is this a current diagnosis for this admission?: Yes - Time Time Spent with patient: 25-34 minutes - Plan Summary Plan Summary: Continue antibiotics. Follow cultures. Monitor hematocrit and transfuse as needed. Patient bleeding likely resolved. We will resume her warfarin and monitor PT/INR daily. Decrease intravenous fluids to KVO.
[2017-04-12] MEDS ORDERED: CYCLOSPORINE 0.05% OPH EMULSIO 0.4 ML DROPERETTE ONE ×2 (18:36→18:38)
[2017-04-12] MEDS: CEFTRIAXONE 1 GM/D5W RTU 50 ML IV SCH (18:50)
[2017-04-12] MEDS ORDERED: WARFARIN SODIUM 4 MG TABLET PO SCH (22:00)
[2017-04-12] MEDS ORDERED: WARFARIN SODIUM 3 MG TABLET PO ONE (23:00)
[2017-04-13 05:41] LABS: HEMATOCRIT 22.5 % (36.0-47.0); HGB HCT DIFFERENCE 1.5; MEAN CORPUSCULAR HEMOGLOBIN 31.6 pg (27.0-33.4); MEAN CORPUSCULAR HGB CONC 35.6 g/dL (32.0-36.0); MEAN CORPUSCULAR VOLUME 89 fl (80-97); RED BLOOD COUNT 2.53 10^6/uL (3.72-5.28); RED CELL DISTRIBUTION WIDTH 13.9 % (11.5-14.0); WHITE BLOOD COUNT 7.5 10^3/uL (4.0-10.5)
[2017-04-13 05:49] LABS: PROTHROMBIN TIME 18.3 SEC (11.4-15.4)
[2017-04-13 05:50] LABS: PARTIAL THROMBOPLASTIN TIME 47.3 SEC (23.5-35.8)
[2017-04-13] MEDS: LANSOPRAZOLE 30 MG TAB.RAP.DR PO SCH (10:06)
[2017-04-13] MEDS: CETIRIZINE 10 MG TABLET PO SCH (10:06)
[2017-04-13] MEDS: ASCORBIC ACID 500 MG TABLET PO SCH (10:06)
[2017-04-13] MEDS: ISOSORBIDE MONONITRATE 60 MG TAB.ER.24H PO SCH (10:06)
[2017-04-13] MEDS: CYCLOSPORINE 0.05% OPH EMULSIO 0.4 ML DROPERETTE OU SCH ×2 (10:07→18:41)
[2017-04-13] MEDS: DOCUSATE SODIUM 100 MG CAPSULE PO SCH ×2 (10:07→18:41)
[2017-04-13] MEDS: RANOLAZINE 500 MG TAB.SR.12H PO SCH (10:07)
--- NOTE | 2017-04-13 10:44 | PDOC PROGRESS REPORT ---
Subjective Progress Note for:: 04/13/17 Subjective:: Feels weak overall otherwise denies any chills or fever, nausea or vomiting, abdominal pain or flank pain, hematuria, nosebleeding, hemoptysis, nor vaginal bleeding. There is no shortness of breath. Physical Exam Vital Signs: Temp Pulse Resp BP Pulse Ox 97.7 F 77 18 152/74 H 97 04/13/17 07:45 04/13/17 07:45 04/13/17 07:45 04/13/17 07:45 04/13/17 07:45 Intake & Output 04/12/17 04/13/17 04/14/17 06:59 06:59 06:59 Intake Total 1873 1922 Output Total 850 800 Balance 1023 1122 Weight 78.2 kg 77 kg General appearance: PRESENT: no acute distress, cooperative, obese Head exam: PRESENT: normocephalic Eye exam: PRESENT: conjunctiva pale, EOMI Mouth exam: PRESENT: moist, neck supple Neck exam: ABSENT: JVD Respiratory exam: PRESENT: clear to auscultation wojciech. ABSENT: rhonchi, wheezes Cardiovascular exam: PRESENT: RRR. ABSENT: gallop GI/Abdominal exam: PRESENT: normal bowel sounds, soft. ABSENT: distended Extremities exam: PRESENT: other - Trace edema Neurological exam: PRESENT: alert, awake, oriented to situation Skin exam: PRESENT: dry, warm. ABSENT: cyanosis Results Laboratory Results: 04/13/17 04:24 04/13/17 04:24 WBC 7.5 RBC 2.53 L Hgb 8.0 L Hct 22.5 L MCV 89 MCH 31.6 MCHC 35.6 RDW 13.9 Plt Count 207 Assessment & Plan - Diagnosis (1) Sepsis Qualifiers: Sepsis type: Escherichia coli Qualified Code(s): A41.51 - Sepsis due to Escherichia coli [E. coli] Is this a current diagnosis for this admission?: Yes (2) Hematuria Qualifiers: Hematuria type: unspecified type Qualified Code(s): R31.9 - Hematuria, unspecified Is this a current diagnosis for this admission?: Yes (4) Elevated INR Is this a current diagnosis for this admission?: Yes (5) Warfarin toxicity Qualifiers: Encounter type: initial encounter Injury intent: accidental or unintentional Qualified Code(s): T45.511A - Poisoning by anticoagulants, accidental (unintentional), initial encounter Is this a current diagnosis for this admission?: Yes (6) UTI (urinary tract infection) Qualifiers: Urinary tract infection type: site unspecified Hematuria presence: without hematuria Qualified Code(s): N39.0 - Urinary tract infection, site not specified Is this a current diagnosis for this admission?: Yes (7) Coronary artery disease Qualifiers: Coronary Disease-Associated Artery/Lesion type: [place] artery [place] vs. transplanted heart: [place] heart Associated angina: without angina Qualified Code(s): I25.10 - Atherosclerotic heart disease of [place] coronary artery without angina pectoris Is this a current diagnosis for this admission?: Yes (8) Hyperlipidemia Qualifiers: Hyperlipidemia type: unspecified Qualified Code(s): E78.5 - Hyperlipidemia, unspecified Is this a current diagnosis for this admission?: Yes (9) Essential hypertension Is this a current diagnosis for this admission?: Yes (10) GERD (gastroesophageal reflux disease) Qualifiers: Esophagitis presence: without esophagitis Qualified Code(s): K21.9 - Gastro-esophageal reflux disease without esophagitis Is this a current diagnosis for this admission?: Yes (11) History of stroke Is this a current diagnosis for this admission?: Yes - Time Time Spent with patient: 25-34 minutes - Plan Summary Plan Summary: Her hemoglobin hematocrit continues to trend down. We will stop intravenous fluids and obtain CT of the abdomen and pelvis to check for retroperitoneal hemorrhage and likewise a bleeding scan. We will hold the warfarin and continue to monitor hematocrit and transfuse if it falls below 8.
--- NOTE | 2017-04-13 14:58 | RADIOLOGY REPORT (SQ) ---
EXAM DESCRIPTION: NM GI BLEED SCAN COMPLETED DATE/TIME: 04/13/2017 2:43 pm REASON FOR STUDY: anemia secondary to blood loss, unknown source COMPARISON: None. RADIONUCLIDE AND DOSE: 32.1 millicuries Technetium-labeled red blood cells. TECHNIQUE: Serial arterial-phase images acquired for 80 seconds immediately following injection of r adionuclide. Additional 60 images acquired at 60 seconds per image. LIMITATIONS: None. FINDINGS: Flow images without focal areas of abnormal radionuclide location. Serial images show no abnormal accumulation of radionuclide. IMPRESSION: NORMAL RADIONUCLIDE GASTROINTESTINAL BLEEDING STUDY.
[2017-04-13] MEDS: CEFTRIAXONE 1 GM/D5W RTU 50 ML IV SCH (18:41)
[2017-04-14 05:03] LABS: HEMATOCRIT 23.9 % (36.0-47.0); HEMOGLOBIN 8.4 g/dL (12.0-15.5); HGB HCT DIFFERENCE 1.3; MEAN CORPUSCULAR HEMOGLOBIN 31.4 pg (27.0-33.4); MEAN CORPUSCULAR HGB CONC 35.2 g/dL (32.0-36.0); MEAN CORPUSCULAR VOLUME 89 fl (80-97); RED BLOOD COUNT 2.68 10^6/uL (3.72-5.28); WHITE BLOOD COUNT 7.9 10^3/uL (4.0-10.5)
[2017-04-14 05:14] LABS: PROTHROMBIN TIME 19.1 SEC (11.4-15.4)
[2017-04-14 06:25] LABS: APPEARANCE,URINE CLEAR; BILIRUBIN,URINE NEGATIVE (NEGATIVE); GLUCOSE, URINE NEGATIVE (NEGATIVE); KETONES,URINE NEGATIVE (NEGATIVE); LEUKOCYTE ESTERASE,URINE NEGATIVE (NEGATIVE); NITRITE,URINE NEGATIVE (NEGATIVE); PROTEIN,URINE NEGATIVE (NEGATIVE); URINE SPECIFIC GRAVITY 1.006; UROBILINOGEN,URINE NEGATIVE mg/dL (<2.0)
[2017-04-14] MEDS: CYCLOSPORINE 0.05% OPH EMULSIO 0.4 ML DROPERETTE OU SCH ×2 (10:07→17:12)
[2017-04-14] MEDS: CETIRIZINE 10 MG TABLET PO SCH (10:48)
[2017-04-14] MEDS: LANSOPRAZOLE 30 MG TAB.RAP.DR PO SCH (10:48)
[2017-04-14] MEDS: ASCORBIC ACID 500 MG TABLET PO SCH (10:48)
[2017-04-14] MEDS: ISOSORBIDE MONONITRATE 60 MG TAB.ER.24H PO SCH (10:49)
[2017-04-14] MEDS: RANOLAZINE 500 MG TAB.SR.12H PO SCH (10:49)
[2017-04-14] MEDS: DOCUSATE SODIUM 100 MG CAPSULE PO SCH ×2 (10:49→17:11)
[2017-04-14] MEDS ORDERED: CYCLOSPORINE 0.05% OPH EMULSIO 0.4 ML DROPERETTE OU ONE (11:45)
--- NOTE | 2017-04-14 11:45 | PDOC PROGRESS REPORT ---
Subjective Progress Note for:: 04/14/17 Subjective:: Patient denies any dizziness or syncope. Likewise she denies any nosebleeds anymore. No hemoptysis, no vaginal bleeding, no rectal bleeding as well. Patient denies any hematuria at this time. Patient's hematocrit initially trending down and intravenous fluid was discontinued and the patient's hematocrit started to stabilize. In the meantime CT of the abdomen and pelvis pending for possible retroperitoneal bleeding. Physical Exam Vital Signs: Temp Pulse Resp BP Pulse Ox 97.8 F 71 18 153/63 H 96 04/14/17 08:00 04/14/17 08:00 04/14/17 08:00 04/14/17 08:00 04/14/17 08:00 Intake & Output 04/13/17 04/14/17 04/15/17 06:59 06:59 06:59 Intake Total 1922 2693 Output Total 800 1350 Balance 1122 1343 Weight 77 kg 77.4 kg General appearance: PRESENT: no acute distress, cooperative, obese Head exam: PRESENT: normocephalic Eye exam: PRESENT: EOMI Mouth exam: PRESENT: moist, neck supple Neck exam: ABSENT: JVD Respiratory exam: PRESENT: clear to auscultation wojciech. ABSENT: rhonchi, wheezes Cardiovascular exam: PRESENT: RRR. ABSENT: gallop GI/Abdominal exam: PRESENT: normal bowel sounds, soft. ABSENT: tenderness Extremities exam: PRESENT: other - Trace lower extremity edema Neurological exam: PRESENT: alert, awake, oriented to situation Skin exam: PRESENT: dry, warm. ABSENT: cyanosis Results Laboratory Results: 04/14/17 04:13 04/14/17 04/14/17 03:40 04:13 WBC 7.9 RBC 2.68 L Hgb 8.4 L Hct 23.9 L MCV 89 MCH 31.4 MCHC 35.2 RDW 14.0 Plt Count 241 Urine Color YELLOW Urine Appearance CLEAR Urine pH 6.0 Ur Specific [place] 1.006 Urine Protein NEGATIVE Urine Glucose (UA) NEGATIVE Urine Ketones NEGATIVE Urine Blood NEGATIVE Urine Nitrite NEGATIVE Ur Leukocyte Esterase NEGATIVE Urine WBC (Auto) 1 Urine RBC (Auto) 0 Impressions: GI Bleed Scan Nuclear Medicine 04/13/17 00:00 IMPRESSION: NORMAL RADIONUCLIDE GASTROINTESTINAL BLEEDING STUDY. Assessment & Plan - Diagnosis (1) Sepsis Qualifiers: Sepsis type: Escherichia coli Qualified Code(s): A41.51 - Sepsis due to Escherichia coli [E. coli] Is this a current diagnosis for this admission?: Yes (2) Hematuria Qualifiers: Hematuria type: unspecified type Qualified Code(s): R31.9 - Hematuria, unspecified Is this a current diagnosis for this admission?: Yes (4) Elevated INR Is this a current diagnosis for this admission?: Yes (5) Warfarin toxicity Qualifiers: Encounter type: initial encounter Injury intent: accidental or unintentional Qualified Code(s): T45.511A - Poisoning by anticoagulants, accidental (unintentional), initial encounter Is this a current diagnosis for this admission?: Yes (6) UTI (urinary tract infection) Qualifiers: Urinary tract infection type: site unspecified Hematuria presence: without hematuria Qualified Code(s): N39.0 - Urinary tract infection, site not specified Is this a current diagnosis for this admission?: Yes (7) Coronary artery disease Qualifiers: Coronary Disease-Associated Artery/Lesion type: [place] artery [place] vs. transplanted heart: [place] heart Associated angina: without angina Qualified Code(s): I25.10 - Atherosclerotic heart disease of [place] coronary artery without angina pectoris Is this a current diagnosis for this admission?: Yes (8) Hyperlipidemia Qualifiers: Hyperlipidemia type: unspecified Qualified Code(s): E78.5 - Hyperlipidemia, unspecified Is this a current diagnosis for this admission?: Yes (9) Essential hypertension Is this a current diagnosis for this admission?: Yes (10) GERD (gastroesophageal reflux disease) Qualifiers: Esophagitis presence: without esophagitis Qualified Code(s): K21.9 - Gastro-esophageal reflux disease without esophagitis Is this a current diagnosis for this admission?: Yes (11) History of stroke Is this a current diagnosis for this admission?: Yes - Time Time Spent with patient: 25-34 minutes - Plan Summary Plan Summary: We will resume the patient's warfarin at 3 mg. Patient does not want higher doses. Awaiting CT of the abdomen and pelvis. recheck hematocrit in the morning and if it is stable possibly can be discharged. We will discontinue intravenous antibiotic and start the patient on Augmentin. Out of bed and physical therapy.
--- NOTE | 2017-04-14 12:32 | RADIOLOGY REPORT (SQ) ---
EXAM DESCRIPTION: CT ABD/PELVIS ORAL ONLY COMPLETED DATE/TIME: 04/14/2017 10:49 am REASON FOR STUDY: retroperitoneal hemorrhage COMPARISON: None. TECHNIQUE: CT scan of the abdomen and pelvis performed without intravenous or oral contrast. Images reviewed with lung, soft tissue, and bone windows. Reconstructed coronal and sagittal MPR images revi ewed. All images stored on PACS. All CT scanners at this facility use dose modulation, iterative reconstruction, and/or weight based d osing when appropriate to reduce radiation dose to as low as reasonably achievable (ALARA). [facility]: Dose Right [facility]: CareDose [facility]: Dose Right [facility]: Teradose 4D [facility]: [employer] RADIATION DOSE: Up-to-date CT equipment and radiation dose reduction techniques were employed. CTDIv ol: 10.9 mGy. DLP: 531 mGy-cm.mGy. LIMITATIONS: None. FINDINGS: LOWER CHEST: Ground-glass opacities are present in the right lower lobe. A minimal right pleural effusion is present. NON-CONTRASTED LIVER, SPLEEN, ADRENALS: The liver is unremarkable. Small calcifications are present in the spleen that are too numerous to count. No adrenal mass is present. PANCREAS: No masses. No peripancreatic inflammatory changes. GALLBLADDER: A small gallstone suggested on image 26 series 2 RIGHT KIDNEY AND URETER: No suspicious masses. Assessment limited by lack of IV contrast. No signif icant calcifications. No hydronephrosis or hydroureter. LEFT KIDNEY AND URETER: No suspicious masses. Assessment limited by lack of IV contrast. No signifi cant calcifications. No hydronephrosis or hydroureter. AORTA AND RETROPERITONEUM: No aneurysm. Extensive atherosclerosis. Atherosclerosis is present in th e celiac and SMA. BOWEL AND PERITONEAL CAVITY: No obvious masses or inflammatory changes. No free fluid. APPENDIX: Normal. PELVIS, BLADDER, AND ABDOMINAL WALL:The urinary bladder is normal. The uterus is absent. There is n o adnexal mass or fluid collection. BONES: Degenerative disc changes are present in the lower thoracic and lumbar spines. Degenerative j oint disease is present both shoulders with narrowing of the joint space is and subchondral cysts in the femoral heads and acetabula. Marginal osteophytes are present in the femoral heads. A hemangiom a is suggested in the L3 vertebral body. OTHER: No other significant finding. IMPRESSION: 1. Ground-glass opacities are present in the right lower lobe. These nonspecific may c an indicate interstitial lung disease, interstitial edema. Atypical infection. 2. Lumbar degenerative disc disease and L3 hemangioma. 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 3. No acute abnormality is seen in the abdomen. TECHNICAL DOCUMENTATION: JOB ID: [id number] Quality ID # [id number]: Final reports with documentation of one or more dose reduction techniques (e.g., Au tomated exposure control, adjustment of the mA and/or kV according to patient size, use of iterative reconstruction technique) 2010 [employer]- All Rights Reserved
[2017-04-14] MEDS: AMOXICILLIN TR/POT CLAVULANATE 500-125 MG TAB PO SCH ×2 (13:39→21:05)
[2017-04-14] MEDS ORDERED: WARFARIN SODIUM 3 MG TABLET PO SCH (22:00)
[2017-04-15 04:29] LABS: HEMATOCRIT 23.1 % (36.0-47.0); HEMOGLOBIN 8.1 g/dL (12.0-15.5); HGB HCT DIFFERENCE 1.2; MEAN CORPUSCULAR HGB CONC 34.9 g/dL (32.0-36.0); MEAN CORPUSCULAR VOLUME 89 fl (80-97); RED BLOOD COUNT 2.61 10^6/uL (3.72-5.28); WHITE BLOOD COUNT 8.8 10^3/uL (4.0-10.5)
[2017-04-15 04:44] LABS: PROTHROMBIN TIME 18.7 SEC (11.4-15.4)
[2017-04-15] MEDS: AMOXICILLIN TR/POT CLAVULANATE 500-125 MG TAB PO SCH (05:19)
[2017-04-15] MEDS ORDERED: LANSOPRAZOLE 30 MG TAB.RAP.DR PO SCH (06:00)
[2017-04-15] MEDS: CETIRIZINE 10 MG TABLET PO SCH (09:40)
[2017-04-15] MEDS: ASCORBIC ACID 500 MG TABLET PO SCH (09:40)
[2017-04-15] MEDS: ISOSORBIDE MONONITRATE 60 MG TAB.ER.24H PO SCH (09:41)
[2017-04-15] MEDS: RANOLAZINE 500 MG TAB.SR.12H PO SCH (09:42)
[2017-04-15] MEDS: DOCUSATE SODIUM 100 MG CAPSULE PO SCH (09:43)
[2017-04-15] MEDS: CYCLOSPORINE 0.05% OPH EMULSIO 0.4 ML DROPERETTE OU SCH (10:00)
[2017-04-15 12:01] VITALS: BP 130/69
--- NOTE | 2017-04-15 14:05 | PDOC DISCHARGE SUMMARY ---
General - Admit/Disc Date/PCP Admission Date/Primary Care Provider: 04/10/17 16:48 ETHAN MCMAHON MD Discharge Date: 04/15/17 - Discharge Diagnosis (1) Sepsis Is this a current diagnosis for this admission?: YesSummary: Due to urinary tract infection. Grew out E. coli from blood cultures drawn several days prior to this admission. (2) Warfarin toxicity Is this a current diagnosis for this admission?: YesSummary: Patient has had normalization of her INR. She has been restarted on a lower dose of Coumadin. (3) Chronic atrial fibrillation Is this a current diagnosis for this admission?: Yes (4) Coronary artery disease Is this a current diagnosis for this admission?: Yes (5) Essential hypertension Is this a current diagnosis for this admission?: Yes (6) GERD (gastroesophageal reflux disease) Is this a current diagnosis for this admission?: Yes (7) Hyperlipidemia Is this a current diagnosis for this admission?: Yes - Additional Information Discharge Diet: Cardiac Discharge Activity: Activity As Tolerated, Balance Activity w/Rest Home Medications: Ascorbic Acid [Vitamin C 500 mg Tablet] 1,000 mg PO DAILY 11/12/11 Aspirin [Ecotrin 81 mg EC Tablet] 81 mg PO DAILY 11/12/11 Isosorbide Mononitrate [Imdur] 120 mg PO DAILY 11/12/11 Nitroglycerin [Nitrolingual 0.4 mg/dose [place]] 4.9 gm TOP PRN PRN 11/12/11 Ranolazine [Ranexa 500 mg Tab.sr] 500 mg PO DAILY 11/12/11 Cetirizine HCl [Zyrtec] 10 mg PO DAILY 04/10/17 Cyclosporine [Restasis Multidose] 1 drop OU BID 04/10/17 Docusate Sodium [Colace 100 mg Capsule] 100 mg PO BID 04/10/17 Esomeprazole Magnesium [Nexium] 40 mg PO DAILY 04/10/17 Ferrous Sulfate 325 mg PO DAILY 04/10/17 [place]-3 Fatty Acids/Fish Oil [Fish Oil 1,000 mg Capsule] 4 cap PO DAILY Tramadol HCl 50 mg PO Q8HP PRN 04/10/17 Ubidecarenone [Co Q-10] 2 cap PO DAILY 04/10/17 Valsartan [Diovan 160 mg Tablet] 160 mg PO DAILY 04/10/17 Warfarin Sodium [Coumadin] 3 mg PO DAILY 04/10/17 Amox Tr/Potassium Clavulanate [Augmentin "500" Tablet] 1 tab PO Q8 #18 tablet 04/15/17 History of Present Illness History of Present Illness: SUNITA BALLESTEROS is a 82 year old female who has a history of CVA in the past and has been on Coumadin because of age fibrillation and the CVA. The patient presented to the emergency room several days prior to this admission with urinary tract symptoms and was given Bactrim. Her INR at that time was 4 and she was told to decrease her Coumadin. The patient on the day of admission began with epistaxis and gross hematuria. When she presented her INR was unmeasurable. She was given vitamin K and admitted for further monitoring. The patient had positive blood cultures that grew out E. coli. The patient is admitted for further monitoring Hospital Course Hospital Course: 2-year-old female who presented with a urinary tract infection prior to this presentation was started on Bactrim. This caused her INR to become elevated and then she developed epistaxis and hematuria. Patient was found to have a unmeasurable INR. She was given vitamin K and admitted. The patient was treated initially with IV antibiotics and eventually was switched over to Augmentin. Given her positive blood cultures it was felt that she would need 14 days of antibiotics total and is being sent home on Augmentin to complete 14 day course of antibiotics. The patient was felt to have sepsis given her symptoms and positive blood cultures. The patient Coumadin and her INR on the day of discharge was subtherapeutic however she will continue with 3 mg daily which is less than her usual dose of 3 mg alternating with 4 mg. She will follow-up in 2 days with her primary care doctor for follow-up of her INR. Physical Exam Vital Signs: Temp Pulse Resp BP Pulse Ox 98.0 F 60 18 130/69 H 98 04/15/17 11:51 04/15/17 11:51 04/15/17 11:51 04/15/17 11:51 04/15/17 11:51 Intake & Output 04/14/17 04/15/17 04/16/17 06:59 06:59 06:59 Intake Total 2693 1521 318 Output Total 1350 1650 Balance 1343 -129 318 Weight 77.4 kg 77.6 kg General appearance: PRESENT: no acute distress Eye exam: PRESENT: conjunctiva pink. ABSENT: scleral icterus Mouth exam: PRESENT: moist, tongue midline Neck exam: ABSENT: JVD Respiratory exam: PRESENT: clear to auscultation wojciech. ABSENT: rales, rhonchi, wheezes Cardiovascular exam: PRESENT: RRR. ABSENT: diastolic murmur, rubs, systolic murmur GI/Abdominal exam: PRESENT: normal bowel sounds, soft. ABSENT: distended, guarding, mass, organolmegaly, rebound, tenderness Extremities exam: ABSENT: calf tenderness, clubbing, pedal edema Neurological exam: PRESENT: alert, awake, oriented to person, oriented to place , oriented to time, oriented to situation, CN II-XII grossly intact. ABSENT: motor sensory deficit Psychiatric exam: PRESENT: appropriate affect Skin exam: PRESENT: dry, intact, warm. ABSENT: cyanosis, rash Results Laboratory Results: 04/15/17 03:59 04/14/17 04/15/17 18:50 03:59 WBC 8.8 RBC 2.61 L Hgb 8.1 L Hct 23.1 L MCV 89 MCH 31.0 MCHC 34.9 RDW 14.0 Plt Count 295 Stool Occult Blood POSITIVE Impressions: GI Bleed Scan Nuclear Medicine 04/13/17 00:00 IMPRESSION: NORMAL RADIONUCLIDE GASTROINTESTINAL BLEEDING STUDY. Abdomen/Pelvis CT 04/14/17 00:00 IMPRESSION: 1. Ground-glass opacities are present in the right lower lobe. These nonspecific may can indicate interstitial lung disease, interstitial edema. Atypical infection. 2. Lumbar degenerative disc disease and L3 hemangioma. 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 3. No acute abnormality is seen in the abdomen. Qualifiers PATEINT BEING DISCHARGED WITH ANY OF THE FOLLOWING DIAGNOSIS?: No Plan Discharge Plan: Patient is discharged home in stable condition. Will follow-up in 2 days for a PT/INR and in 1 week to see her primary care physician. Time Spent: Less than 30 Minutes
== END 2017-04-15 12:31 | disposition home or self-care (01) | DRG 872 ==
LOC: ER 11:19 → EH 16:09 → UNDOADMIN 16:09 → EH 16:48 → 3N 18:17
PROC: 30233K1 Transfusion of Nonautologous Frozen Plasma into Peripheral Vein, Percutaneous Approach (ICD-10-PCS; principal; 2017-04-10)
PROC: 30233K1 Transfusion of Nonautologous Frozen Plasma into Peripheral Vein, Percutaneous Approach (ICD-10-PCS; 2017-04-11)
DX: A41.51 Sepsis due to Escherichia coli [E. coli] (principal); N39.0 Urinary tract infection, site not specified; B96.20 Unspecified Escherichia coli [E. coli] as the cause of diseases classified elsewhere; R89.2 Abnormal level of other drugs, medicaments and biological substances in specimens from other organs, systems and tissues; T45.515A Adverse effect of anticoagulants, initial encounter; I48.2 Chronic atrial fibrillation; R31.9 Hematuria, unspecified; I25.10 Atherosclerotic heart disease of native coronary artery without angina pectoris; I10 Essential (primary) hypertension; K21.9 Gastro-esophageal reflux disease without esophagitis; E78.5 Hyperlipidemia, unspecified; M19.90 Unspecified osteoarthritis, unspecified site; Z79.82 Long term (current) use of aspirin; Z79.899 Other long term (current) drug therapy; Z79.01 Long term (current) use of anticoagulants; Z86.73 Personal history of transient ischemic attack (TIA), and cerebral infarction without residual deficits; I25.2 Old myocardial infarction; Z95.1 Presence of aortocoronary bypass graft; Z95.5 Presence of coronary angioplasty implant and graft; Z88.1 Allergy status to other antibiotic agents
CPT/HCPCS: 36415; 36430; 74176; 78278; 80048; 81001; 82272; 85025; 85027; 85610; 85730; 86850; 86900; 86901; 86920; 87040; 87086; 93005; 93010; 96372; 99284; A9560; G8978-GP; G8979-GP; J0696; J3430; J3490; J7030; J7050; P9016; P9017; Q9969

== ENCOUNTER → 2017-04-17 | Outpatient (CLI) | payer MEDICARE, OTHER ==
[2017-04-17 11:17] LABS: PROTHROMBIN TIME 20.3 SEC (11.4-15.4)
== END ==
LOC: OD 10:36
PROVIDERS: ATTEND Internal Medicine
DX: I48.0 Paroxysmal atrial fibrillation (principal)
CPT/HCPCS: 36415; 85610

== ENCOUNTER → 2017-04-29 | Outpatient (CLI) | payer MEDICARE, OTHER ==
[2017-04-29 15:36] LABS: PROTHROMBIN TIME 30.3 SEC (11.4-15.4)
== END ==
LOC: OD 14:10
PROVIDERS: ATTEND Internal Medicine
DX: I48.0 Paroxysmal atrial fibrillation (principal)
CPT/HCPCS: 36415; 85610

== ENCOUNTER → 2017-05-23 | Outpatient (CLI) | payer MEDICARE, OTHER ==
[2017-05-23 17:15] LABS: PROTHROMBIN TIME 33.1 SEC (11.4-15.4)
== END ==
LOC: OD 15:56
PROVIDERS: ATTEND Internal Medicine
DX: I48.0 Paroxysmal atrial fibrillation (principal)
CPT/HCPCS: 36415; 85610

== ENCOUNTER → 2017-06-25 | Outpatient (CLI) | payer MEDICARE, OTHER ==
[2017-06-25 16:16] LABS: PROTHROMBIN TIME 38.8 SEC (11.4-15.4)
== END ==
LOC: OD 15:27
PROVIDERS: ATTEND Internal Medicine
DX: I48.0 Paroxysmal atrial fibrillation (principal)
CPT/HCPCS: 36415; 85610

== ENCOUNTER → 2017-07-04 | Outpatient (CLI) | payer MEDICARE, OTHER ==
[2017-07-04 11:23] LABS: CHOLESTEROL 234.39 mg/dL (0-200); Direct HDL 39 mg/dL (>40); TRIGLYCERIDES 122 mg/dL (<150)
[2017-07-04 11:34] LABS: DIRECT LDL 133 mg/dL (<100)
== END ==
LOC: OD 09:44
PROVIDERS: ATTEND Internal Medicine
DX: I25.10 Atherosclerotic heart disease of native coronary artery without angina pectoris (principal); Z98.61 Coronary angioplasty status; Z95.1 Presence of aortocoronary bypass graft; I34.0 Nonrheumatic mitral (valve) insufficiency; E78.4 Other hyperlipidemia; I10 Essential (primary) hypertension; I25.2 Old myocardial infarction; I35.1 Nonrheumatic aortic (valve) insufficiency; K21.9 Gastro-esophageal reflux disease without esophagitis; R09.89 Other specified symptoms and signs involving the circulatory and respiratory systems; Z79.899 Other long term (current) drug therapy
CPT/HCPCS: 36415; 80061

== ENCOUNTER 2017-07-08 20:02 | Emergency (ER) | payer MEDICARE, OTHER ==
[2017-07-08] MEDS ORDERED: ASPIRIN 81 MG TABLET, CHEWABLE PO ONE (20:20)
[2017-07-08] MEDS ORDERED: NORMAL SALINE 1000 ML 1,000 ML IV ONE (20:36)
[2017-07-08 20:38] LABS: ABSOLUTE EOSINOPHILS # (AUTO) 0.1 10^3/uL (0.0-0.6); ABSOLUTE LYMPHOCYTES (AUTO) 0.7 10^3/uL (0.5-4.7); ABSOLUTE MONOCYTES (AUTO) 0.6 10^3/uL (0.1-1.4); ABSOLUTE NEUT (AUTO) 7.5 10^3/uL (1.7-8.2); BASOPHILS % (AUTO) 0.4 % (0-2); HEMATOCRIT 30.4 % (36.0-47.0); HEMOGLOBIN 10.4 g/dL (12.0-15.5); HGB HCT DIFFERENCE 0.8; LYMPHOCYTES % (AUTO) 8.3 % (13-45); MEAN CORPUSCULAR VOLUME 85 fl (80-97); MONOCYTES % (AUTO) 6.3 % (3-13); RED BLOOD COUNT 3.57 10^6/uL (3.72-5.28); RED CELL DISTRIBUTION WIDTH 16.1 % (11.5-14.0); WHITE BLOOD COUNT 8.9 10^3/uL (4.0-10.5)
--- NOTE | 2017-07-08 20:56 | RADIOLOGY REPORT (SQ) ---
EXAM DESCRIPTION: CHEST SINGLE VIEW COMPLETED DATE/TIME: 07/08/2017 8:47 pm REASON FOR STUDY: syncope COMPARISON: 04/06/2017 EXAM PARAMETERS: NUMBER OF VIEWS: One view. TECHNIQUE: Single frontal radiographic view of the chest acquired. RADIATION DOSE: NA LIMITATIONS: None. FINDINGS: LUNGS AND PLEURA: No opacities, masses or pneumothorax. No pleural effusion. MEDIASTINUM AND HILAR STRUCTURES: No masses. Contour normal. HEART AND VASCULAR STRUCTURES: The configuration of the heart and mediastinal structures is unchanged . BONES: No acute findings. HARDWARE: Patient is status post median sternotomy. OTHER: No other significant finding. IMPRESSION: No significant interval change. No acute findings. Other findings as noted above. TECHNICAL DOCUMENTATION: JOB ID: [id number]
--- NOTE | 2017-07-08 21:00 | RADIOLOGY REPORT (SQ) ---
EXAM DESCRIPTION: CT HEAD WITHOUT COMPLETED DATE/TIME: 07/08/2017 8:49 pm REASON FOR STUDY: altered COMPARISON: January 2015 TECHNIQUE: Axial images acquired through the brain without intravenous contrast. Images reviewed wi th bone, brain and subdural windows. Images stored on PACS. All CT scanners at this facility use dose modulation, iterative reconstruction, and/or weight based d osing when appropriate to reduce radiation dose to as low as reasonably achievable (ALARA). [facility]: Dose Right [facility]: CareDose [facility]: Dose Right [facility]: Teradose 4D [facility]: [employer] RADIATION DOSE: mGy. LIMITATIONS: None. FINDINGS: VENTRICLES: Prominent. CEREBRUM: No masses. No hemorrhage. No midline shift. Areas of low density in the white matter mos t likely due to chronic micro-vascular ischemic change. No evidence for acute infarction. CEREBELLUM: No masses. No hemorrhage. No alteration of density. No evidence for acute infarction. EXTRAAXIAL SPACES: Mild age-related involutional change. No fluid collections. No masses. ORBITS AND GLOBE: No intra- or extraconal masses. Normal contour of globe without masses. CALVARIUM: No fracture. PARANASAL SINUSES: No fluid or mucosal thickening. SOFT TISSUES: No mass or hematoma. OTHER: No other significant finding. IMPRESSION: MILD CHRONIC CHANGES OF ATROPHY AND MICROVASCULAR ISCHEMIA. NO ACUTE PROCESS. EVIDENCE OF ACUTE STROKE: NO. TECHNICAL DOCUMENTATION: JOB ID: [id number] Quality ID # 436: Final reports with documentation of one or more dose reduction techniques (e.g., Au tomated exposure control, adjustment of the mA and/or kV according to patient size, use of iterative reconstruction technique) 2010 [employer]- All Rights Reserved
[2017-07-08 21:04] LABS: ALANINE AMINOTRANSFERASE 27 U/L (9-52); ALBUMIN 3.7 g/dL (3.5-5.0); ALKALINE PHOSPHATASE 78 U/L (38-126); ANION GAP 13 (5-19); ASPARTATE AMINO TRANSFERASE 18 U/L (14-36); BILIRUBIN,DIRECT 0.4 mg/dL (0.0-0.4); BILIRUBIN,TOTAL 0.5 mg/dL (0.2-1.3); BLOOD UREA NITROGEN 25 mg/dL (7-20); CALCIUM 8.7 mg/dL (8.4-10.2); CARBON DIOXIDE 23 mmol/L (22-30); CHLORIDE 102 mmol/L (98-107); CREATINE KINASE 31 U/L (30-135); CREATININE RESULT 1.36 mg/dL (0.52-1.25); GLUCOSE 126 mg/dL (75-110); POTASSIUM 4.7 mmol/L (3.6-5.0); SODIUM 137.6 mmol/L (137-145); TOTAL PROTEIN 6.4 g/dL (6.3-8.2)
[2017-07-08 21:15] LABS: CREATINE KINASE MB 0.59 ng/mL (<4.55)
[2017-07-08 21:18] LABS: TROPONIN I < 0.012 ng/mL
--- NOTE | 2017-07-08 22:42 | ER Document Report ---
ED General - General Chief Complaint: Low Blood Pressure Stated Complaint: BLOOD PRESSURE PROBLEM Time Seen by Provider: 07/08/17 20:19 Mode of Arrival: Ambulatory Information source: Patient Notes: 82-year-old female history of hypertension who is on Coumadin presents after syncopal episode. Patient was down for unknown amount time was noted to feel dizzy lightheaded and sweating prior to this episode. Patient denies any chest pain denies any nausea or vomiting Patient was noted to be found hypotensive by EMS, she was given IV fluids and noted improvement blood pressure 100 systolic TRAVEL OUTSIDE OF THE [place] IN LAST 30 DAYS: No - HPI Onset: Just prior to arrival Onset/Duration: Sudden Quality of pain: No pain Severity: Moderate Pain Level: Denies Associated symptoms: Other - Syncope Exacerbated by: Sitting, Standing Relieved by: Denies Similar symptoms previously: No Recently seen / treated by doctor: No - Related Data Allergies/Adverse Reactions: levofloxacin [From Levaquin] Allergy (Severe, Verified 04/10/17 11:26) Diarrhea Past Medical History - Social History Smoking Status: Never Smoker Cigarette use (# per day): No Chew tobacco use (# tins/day): No Smoking Education Provided: No Frequency of alcohol use: None Drug Abuse: None Family History: None - Past Medical History Cardiac Medical History: Reports: Hx Coronary Artery Disease, Hx Heart Attack, Hx Hypercholesterolemia, Hx Hypertension Denies: Hx Atrial Fibrillation, Hx Congestive Heart Failure, Hx Peripheral Vascular Disease, Hx Heart Murmur Pulmonary Medical History: Denies: Hx Asthma, Hx Bronchitis, Hx COPD, Hx Pneumonia, Hx Tuberculosis Neurological Medical History: Reports: Hx Cerebrovascular Accident Renal/ Medical History: Denies: Hx Peritoneal Dialysis GI Medical History: Reports: Hx Gastroesophageal Reflux Disease Musculoskeltal Medical History: Reports Hx Arthritis Past Surgical History: Reports: Hx Cardiac Surgery - bypass 1992, Hx Coronary Artery Bypass Graft, Hx Coronary Stent. Denies: Hx Appendectomy, Hx Bowel Surgery, Hx Section, Hx Cholecystectomy, Hx Gastric Bypass Surgery, Hx Herniorrhaphy, Hx Hysterectomy, Hx Mastectomy, Hx Pacemaker, Hx Tonsillectomy, Hx Tubal Ligation - Immunizations Hx Diphtheria, Pertussis, Tetanus Vaccination: No Review of Systems - Review of Systems Notes: REVIEW OF SYSTEMS: CONSTITUTIONAL : Admits to sweating EENT: Denies eye, ear, throat, or mouth pain or symptoms. Denies nasal or sinus congestion or discharge. Denies throat, tongue, or mouth swelling or difficulty swallowing. CARDIOVASCULAR: Denies chest pain. Denies palpitations or racing or irregular heart beat. Denies ankle edema. RESPIRATORY: Denies cough, cold, or chest congestion. Denies shortness of breath, difficulty breathing, or wheezing. GASTROINTESTINAL: Denies abdominal pain or distention. Denies nausea, vomiting , or diarrhea. Denies blood in vomitus, stools, or per rectum. Denies black, tarry stools. Denies constipation. GENITOURINARY: Denies difficulty urinating, painful urination, burning, frequency, blood in urine, or discharge. FEMALE GENITOURINARY: Denies vaginal bleeding, heavy or abnormal periods, irregular periods. Denies vaginal discharge or odor. MUSCULOSKELETAL: Denies back or neck pain or stiffness. Denies joint pain or swelling. SKIN: Denies rash, lesions or sores. HEMATOLOGIC : Denies easy bruising or bleeding. LYMPHATIC: Denies swollen, enlarged glands. NEUROLOGICAL: Admits to dizziness lightheadedness PSYCHIATRIC: Denies anxiety or stress. Denies depression, suicidal ideation, or homicidal ideation. ALL OTHER SYSTEMS REVIEWED AND NEGATIVE. PHYSICAL EXAMINATION: GENERAL: Well-appearing, well-nourished and in no acute distress. HEAD: Atraumatic, normocephalic. EYES: Pupils equal round and reactive to light, extraocular movements intact, conjunctiva are normal. ENT: Nares patent, oropharynx clear without exudates. Moist mucous membranes. NECK: Normal range of motion, supple without lymphadenopathy LUNGS: Breath sounds clear to auscultation bilaterally and equal. No wheezes rales or rhonchi. HEART: Regular rate and rhythm without murmurs ABDOMEN: Soft, nontender, nondistended abdomen. No guarding, no rebound. No masses appreciated. Female : deferred Musculoskeletal: Normal range of motion, no pitting or edema. No cyanosis. NEUROLOGICAL: Cranial nerves grossly intact. Normal speech, normal gait. Normal sensory, motor exams PSYCH: Normal mood, normal affect. SKIN: Warm, Dry, normal turgor, no rashes or lesions noted. Dictation was performed using [employer] voice recognition software Physical Exam - Vital signs Vitals: Resp Pulse Ox 16 99 07/08/17 20:18 07/08/17 20:18 Course - Re-evaluation Re-evalutation: 07/08/17 23:05 Patient's lab work was quite benign, there is mild dehydration noted as well as a UTI. I believe the patient's symptoms were consistent with orthostatic hypotension and that she syncopized as a result. Overall she looks well is in no distress. Patient will be treated for urinary tract infection, she was given IV fluids and states she feels much better and wishes to be discharged. I did have an extremely long conversation with her and they both feel comfortable with her going home, I did explain my concerns of her age that there may other underlying issues but that since my findings at this time are quite benign that I will send her home on antibiotics After performing a Medical Screening Examination, I estimate there is LOW risk for INTRACRANIAL HEMORRHAGE, ISCHEMIC CVA, MALIGNANT DYSRHYTHMIA, ACUTE CORONARY SYNDROME, MENINGITIS, PULMONARY EMBOLISM, or SEPSIS thus I consider the discharge disposition reasonable. I have reevaluated this patient multiple times and no significant life threatening changes are noted. The patient and I have discussed the diagnosis and risks, and we agree with discharging home with close follow-up with the understanding that symptoms and presentations can change. We also discussed returning to the Emergency Department immediately if new or worsening symptoms occur. We have discussed the symptoms which are most concerning (e.g., changing or worsening pain, weakness, vomiting, fever) that necessitate immediate return. - Vital Signs Vital signs: Temp Pulse Resp BP Pulse Ox 15 134/74 H 100 07/08/17 23:01 07/08/17 23:01 07/08/17 23:01 - Laboratory Result Diagrams: 07/08/17 20:25 07/08/17 20:25 Laboratory results interpreted by me: 07/08/17 07/08/17 07/08/17 20:25 20:25 22:30 RBC 3.57 L Hgb 10.4 L Hct 30.4 L RDW 16.1 H Seg Neutrophils % 84.0 H Lymphocytes % 8.3 L BUN 25 H Creatinine 1.36 H Est GFR ( Amer) 45 L Est GFR (Non-Af Amer) 37 L Glucose 126 H Urine Nitrite POSITIVE H Ur Leukocyte Esterase SMALL H Urine Ascorbic Acid 40 H - Diagnostic Test Radiology reviewed: Image reviewed, Reports reviewed - EKG Interpretation by Me EKG shows normal: Sinus rhythm, Donal[place], Intervals, QRS Complexes Discharge - Discharge Clinical Impression: Orthostatic hypotension, Dehydration UTI (urinary tract infection) Qualifiers: Urinary tract infection type: acute cystitis Hematuria presence: without hematuria Qualified Code(s): N30.00 - Acute cystitis without hematuria Condition: Stable Disposition: HOME, SELF-CARE Instructions: Urinary Tract Infection ([facility]), Syncopal Episode ([facility]), Orthostatic Hypotension ([facility]) Additional Instructions: Please follow-up with your primary care physician tomorrow for reevaluation or return immediately if there are any other concerns at all
[2017-07-08 22:51] LABS: AMORPHOUS SEDIMENT,URINE TRACE /HPF; APPEARANCE,URINE CLOUDY; BILIRUBIN,URINE NEGATIVE (NEGATIVE); GLUCOSE, URINE NEGATIVE (NEGATIVE); KETONES,URINE NEGATIVE (NEGATIVE); LEUKOCYTE ESTERASE,URINE SMALL (NEGATIVE); NITRITE,URINE POSITIVE (NEGATIVE); PROTEIN,URINE NEGATIVE (NEGATIVE); URINE SPECIFIC GRAVITY 1.015; UROBILINOGEN,URINE NEGATIVE mg/dL (<2.0)
[2017-07-08 23:39] VITALS: BP 103/66
[2017-07-08 23:39] LABS: PROTHROMBIN TIME 33.9 SEC (11.4-15.4)
--- NOTE | 2017-07-09 00:04 | EKG REPORT ---
SEVERITY:- ABNORMAL ECG - SINUS RHYTHM INFERIOR INFARCT, AGE INDETERMINATE ABNRM R PROG, CONSIDER ASMI OR LEAD PLACEMENT : Confirmed by: Nikki Mills 09-Jul-2017 00:03:05
== END 2017-07-08 23:39 | disposition home or self-care (01) ==
LOC: ER 20:02
DX: I95.1 Orthostatic hypotension (principal); N30.00 Acute cystitis without hematuria; E86.0 Dehydration; R61 Generalized hyperhidrosis; I25.10 Atherosclerotic heart disease of native coronary artery without angina pectoris; I10 Essential (primary) hypertension; Z79.01 Long term (current) use of anticoagulants; Z88.1 Allergy status to other antibiotic agents; I25.2 Old myocardial infarction; Z86.73 Personal history of transient ischemic attack (TIA), and cerebral infarction without residual deficits; Z95.1 Presence of aortocoronary bypass graft; Z95.5 Presence of coronary angioplasty implant and graft
CPT/HCPCS: 93005; 99285; 96360; 36415; 87086; 82553; 82550; 85025; 85610; 87088; 80053; 81001; 84484; 87186; 71010; 70450; 93010; A9270; J7030

== ENCOUNTER → 2017-08-12 | Outpatient (CLI) | payer MEDICARE, OTHER ==
[2017-08-12 15:26] LABS: PROTHROMBIN TIME 28.7 SEC (11.4-15.4)
== END ==
LOC: OD 13:46
PROVIDERS: ATTEND Internal Medicine
DX: I48.0 Paroxysmal atrial fibrillation (principal)
CPT/HCPCS: 36415; 85610

== ENCOUNTER → 2017-10-01 | Outpatient (CLI) | payer MEDICARE, OTHER ==
[2017-10-01 14:55] LABS: INTERNATIONAL RATION (INR) 2.42; PROTHROMBIN TIME 27.6 SEC (11.4-15.4)
== END ==
LOC: OD 14:04
PROVIDERS: ATTEND Internal Medicine
DX: I48.0 Paroxysmal atrial fibrillation (principal)
CPT/HCPCS: 36415; 85610

== ENCOUNTER → 2017-10-31 | Outpatient (CLI) | payer MEDICARE, OTHER ==
[2017-10-31 15:01] LABS: INTERNATIONAL RATION (INR) 2.17; PROTHROMBIN TIME 25.3 SEC (11.4-15.4)
== END ==
LOC: OD 14:02
PROVIDERS: ATTEND Internal Medicine
DX: I48.0 Paroxysmal atrial fibrillation (principal)
CPT/HCPCS: 36415; 85610

== ENCOUNTER → 2017-12-09 | Outpatient (CLI) | payer MEDICARE, OTHER ==
[2017-12-09 15:30] LABS: INTERNATIONAL RATION (INR) 2.85; PROTHROMBIN TIME 31.3 SEC (11.4-15.4)
== END ==
LOC: OD 14:32
PROVIDERS: ATTEND Internal Medicine
DX: I48.0 Paroxysmal atrial fibrillation (principal)
CPT/HCPCS: 36415; 85610

== ENCOUNTER 2018-01-06 04:59 | Observation (INO) | payer MEDICARE, OTHER ==
[2018-01-06 05:59] LABS: ABSOLUTE LYMPHOCYTES (AUTO) 1.2 10^3/uL (0.5-4.7); ABSOLUTE MONOCYTES (AUTO) 0.7 10^3/uL (0.1-1.4); ABSOLUTE NEUT (AUTO) 7.7 10^3/uL (1.7-8.2); BASOPHILS % (AUTO) 0.3 % (0-2); EOSINOPHILS % (AUTO) 0.3 % (0-6); HEMATOCRIT 33.5 % (36.0-47.0); HEMOGLOBIN 11.2 g/dL (12.0-15.5); LYMPHOCYTES % (AUTO) 12.3 % (13-45); MEAN CORPUSCULAR HEMOGLOBIN 30.3 pg (27.0-33.4); MEAN CORPUSCULAR HGB CONC 33.3 g/dL (32.0-36.0); MEAN CORPUSCULAR VOLUME 91 fl (80-97); MONOCYTES % (AUTO) 7.3 % (3-13); PLATELET COUNT 198 10^3/uL (150-450); RED BLOOD COUNT 3.68 10^6/uL (3.72-5.28); RED CELL DISTRIBUTION WIDTH 15.8 % (11.5-14.0); SEGMENTED NEUTROPHILS % (AUTO) 79.8 % (42-78); TOTAL CELLS COUNTED % (AUTO) 100 %; WHITE BLOOD COUNT 9.6 10^3/uL (4.0-10.5)
[2018-01-06 06:12] LABS: ALANINE AMINOTRANSFERASE 17 U/L (9-52); ALBUMIN 4.2 g/dL (3.5-5.0); ALKALINE PHOSPHATASE 74 U/L (38-126); ANION GAP 10 (5-19); ASPARTATE AMINO TRANSFERASE 19 U/L (14-36); BILIRUBIN,DIRECT 0.4 mg/dL (0.0-0.4); BILIRUBIN,TOTAL 0.5 mg/dL (0.2-1.3); BLOOD UREA NITROGEN 38 mg/dL (7-20); CALCIUM 9.5 mg/dL (8.4-10.2); CARBON DIOXIDE 29 mmol/L (22-30); CHLORIDE 100 mmol/L (98-107); CREATINE KINASE 32 U/L (30-135); GLUCOSE 129 mg/dL (75-110); POTASSIUM 4.8 mmol/L (3.6-5.0); SODIUM 138.7 mmol/L (137-145)
[2018-01-06 06:23] LABS: CREATINE KINASE MB 0.48 ng/mL (<4.55)
[2018-01-06 06:28] LABS: TROPONIN I < 0.012 ng/mL
[2018-01-06 06:37] LABS: PARTIAL THROMBOPLASTIN TIME 53.4 SEC (23.5-35.8)
[2018-01-06] MEDS ORDERED: ONDANSETRON HCL INJ/PF 4 MG/2 ML SDV IV ONE (07:11)
[2018-01-06] MEDS ORDERED: NORMAL SALINE 500 ML IV ONE (07:11)
--- NOTE | 2018-01-06 07:19 | RADIOLOGY REPORT (SQ) ---
EXAM DESCRIPTION: CT HEAD WITHOUT CLINICAL HISTORY: 82 years Female, fall on coumadin COMPARISON: None. TECHNIQUE: No contrast. Coronal and sagittal reformat. This exam was performed according to our departmental dose-optimization program, which includes automated exposure control, adjustment of the mA and/or kV according to patient size and/or use of iterative reconstruction technique. FINDINGS: No hemorrhage. No mass, mass effect, or midline shift. Small right frontal encephalomalacia may indicate prior infarct. Mild cerebral volume loss. Mild white matter microangiopathy. Atherosclerosis. Brain and extra-axial structures appear otherwise intact. IMPRESSION: No acute findings.
--- NOTE | 2018-01-06 07:27 | RADIOLOGY REPORT (SQ) ---
EXAM DESCRIPTION: CT CERVICAL SPINE WITHOUT CLINICAL HISTORY: 82 years Female, fall on coumadin COMPARISON: None. TECHNIQUE: No contrast. Coronal and sagittal reformat. This exam was performed according to our departmental dose-optimization program, which includes automated exposure control, adjustment of the mA and/or kV according to patient size and/or use of iterative reconstruction technique. FINDINGS: 0.3 cm C4 and C7 anterolisthesis likely degenerative, 0.2 cm degenerative C5 retrolisthesis, moderate disc desiccation between the C4 and C7 levels, moderate right C6 foraminal stenosis, atherosclerosis, moderate spondylosis, left more than right. No evidence of fracture. Vertebral heights are normal. Bone demineralization. Unenhanced nuchal soft tissues, inferior cranium, and upper thorax appear otherwise grossly intact. 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
--- NOTE | 2018-01-06 07:43 | RADIOLOGY REPORT (SQ) ---
EXAM DESCRIPTION: CHEST 2 VIEWS CLINICAL HISTORY: 82 years Female, syncope COMPARISON: April 06, 2017 NUMBER OF VIEWS/TECHNIQUE: 2, PA and Lateral LIMITATIONS: None. FINDINGS: Prominent interstitium, normal cardiac silhouette, median sternotomy, atherosclerosis, stable rounded opacity at the right paratracheal aspect may indicate a calcified granuloma, new small left basilar atelectasis or scar. IMPRESSION: Small left lower lobar atelectasis or scar.
--- NOTE | 2018-01-06 07:54 | EKG REPORT ---
SEVERITY:- BORDERLINE ECG - SINUS RHYTHM BORDERLINE INFERIOR Q WAVES : Confirmed by: Brennen Hancock MD 06-Jan-2018 07:53:43
--- NOTE | 2018-01-06 07:54 | ER Document Report ---
ED General - General Chief Complaint: Syncope Stated Complaint: FALL/POSSIBLE SYNCOPE Time Seen by Provider: 01/06/18 06:09 Mode of Arrival: Medic Information source: Patient, Emergency Med Personnel Notes: 82-year-old female with a history of hypertension, coronary artery disease, previous CVA osteoarthritis presents after a syncopal episode at home. Patient states that she had been experiencing knee and neck pain over the last few days. She takes tramadol for this. She states that she awoke this morning and began walking to the bathroom when she felt nauseous and "passed out". Patient did have a loss of consciousness. She is unsure whether she struck her head. She denies any preceding dizziness, chest pain, palpitations. She denies any prior similar symptoms. She states she has been otherwise well except for the chronic pain from her arthritis. Patient denies any recent hospital admissions , medication changes. Patient does currently take Coumadin. TRAVEL OUTSIDE OF THE [place] IN LAST 30 DAYS: No - HPI Onset: Just prior to arrival Quality of pain: No pain Associated symptoms: None - Related Data Allergies/Adverse Reactions: levofloxacin [From Levaquin] Allergy (Severe, Verified 04/10/17 11:26) Diarrhea Past Medical History - General Information source: Patient, [facility] Records - Social History Smoking Status: Former Smoker Chew tobacco use (# tins/day): No Frequency of alcohol use: None Drug Abuse: None Family History: None Patient has suicidal ideation: No Patient has homicidal ideation: No - Past Medical History Cardiac Medical History: Reports: Hx Coronary Artery Disease, Hx Heart Attack, Hx Hypercholesterolemia, Hx Hypertension Denies: Hx Atrial Fibrillation, Hx Congestive Heart Failure, Hx Peripheral Vascular Disease, Hx Heart Murmur Pulmonary Medical History: Denies: Hx Asthma, Hx Bronchitis, Hx COPD, Hx Pneumonia, Hx Tuberculosis Neurological Medical History: Reports: Hx Cerebrovascular Accident Renal/ Medical History: Denies: Hx Peritoneal Dialysis GI Medical History: Reports: Hx Gastroesophageal Reflux Disease Musculoskeltal Medical History: Reports Hx Arthritis Past Surgical History: Reports: Hx Cardiac Surgery - "bypass", Hx Coronary Artery Bypass Graft, Hx Coronary Stent, Hx Hysterectomy, Hx Tubal Ligation. Denies: Hx Appendectomy, Hx Bowel Surgery, Hx Section, Hx Cholecystectomy, Hx Gastric Bypass Surgery, Hx Herniorrhaphy, Hx Mastectomy, Hx Pacemaker, Hx Tonsillectomy - Immunizations Hx Diphtheria, Pertussis, Tetanus Vaccination: No Review of Systems - Review of Systems Notes: Patient denies fever, chills, vomiting, headache, ear pain, sore throat, cough , chest pain, shortness of breath, abdominal pain, back pain, dysuria, hematuria , rash, SI/HI, decreased p.o. intake Physical Exam - Vital signs Vitals: Resp 16 01/06/18 05:09 - Notes Notes: PHYSICAL EXAMINATION: GENERAL: Well-appearing, well-nourished and in no acute distress. HEAD: Atraumatic, normocephalic. EYES: Pupils equal round and reactive to light, extraocular movements intact, conjunctiva are normal. ENT: Nares patent, oropharynx clear without exudates. Moist mucous membranes. NECK: Normal range of motion, supple without lymphadenopathy LUNGS: Breath sounds clear to auscultation bilaterally and equal. No wheezes rales or rhonchi. HEART: Regular rate and rhythm without murmurs ABDOMEN: Soft, nontender, nondistended abdomen. No guarding, no rebound. No masses appreciated. Female : deferred Musculoskeletal: Normal range of motion, no pitting or edema. No cyanosis. NEUROLOGICAL: Cranial nerves grossly intact. Normal speech, normal gait. Normal sensory, motor exams PSYCH: Normal mood, normal affect. SKIN: Warm, Dry, normal turgor, no rashes or lesions noted. Course - Re-evaluation Re-evalutation: Laboratory 01/06/18 01/06/18 01/06/18 04:45 04:45 04:45 WBC 9.6 RBC 3.68 L Hgb 11.2 L Hct 33.5 L MCV 91 MCH 30.3 MCHC 33.3 RDW 15.8 H Plt Count 198 Seg Neutrophils % 79.8 H Lymphocytes % 12.3 L Monocytes % 7.3 Eosinophils % 0.3 Basophils % 0.3 Absolute Neutrophils 7.7 Absolute Lymphocytes 1.2 Absolute Monocytes 0.7 Absolute Eosinophils 0.0 Absolute Basophils 0.0 PT INR APTT Sodium 138.7 Potassium 4.8 Chloride 100 Carbon Dioxide 29 Anion Gap 10 BUN 38 H Creatinine 1.71 H Est GFR ( Amer) 35 L Est GFR (Non-Af Amer) 29 L Glucose 129 H Calcium 9.5 Total Bilirubin 0.5 Direct Bilirubin 0.4 Neonat Total Bilirubin Not Reportable Neonat Direct Bilirubin Not Reportable Neonat Indirect Bili Not Reportable AST 19 ALT 17 Alkaline Phosphatase 74 Creatine Kinase 32 CK-MB (CK-2) 0.48 Troponin I < 0.012 Total Protein 7.0 Albumin 4.2 Urine Color Urine Appearance Urine pH Ur Specific [place] Urine Protein Urine Glucose (UA) Urine Ketones Urine Blood Urine Nitrite Urine Bilirubin Urine Urobilinogen Ur Leukocyte Esterase Urine WBC (Auto) Urine RBC (Auto) Urine Bacteria (Auto) Urine Mucus (Auto) Urine Ascorbic Acid 01/06/18 01/06/18 04:45 08:30 WBC RBC Hgb Hct MCV MCH MCHC RDW Plt Count Seg Neutrophils % Lymphocytes % Monocytes % Eosinophils % Basophils % Absolute Neutrophils Absolute Lymphocytes Absolute Monocytes Absolute Eosinophils Absolute Basophils PT 40.0 H INR 3.90 APTT 53.4 H Sodium Potassium Chloride Carbon Dioxide Anion Gap BUN Creatinine Est GFR ( Amer) Est GFR (Non-Af Amer) Glucose Calcium Total Bilirubin Direct Bilirubin Neonat Total Bilirubin Neonat Direct Bilirubin Neonat Indirect Bili AST ALT Alkaline Phosphatase Creatine Kinase CK-MB (CK-2) Troponin I Total Protein Albumin Urine Color YELLOW Urine Appearance CLOUDY Urine pH 6.0 Ur Specific [place] 1.015 Urine Protein NEGATIVE Urine Glucose (UA) NEGATIVE Urine Ketones NEGATIVE Urine Blood MODERATE H Urine Nitrite POSITIVE H Urine Bilirubin NEGATIVE Urine Urobilinogen NEGATIVE Ur Leukocyte Esterase NEGATIVE Urine WBC (Auto) 4 Urine RBC (Auto) 27 Urine Bacteria (Auto) 1+ Urine Mucus (Auto) RARE Urine Ascorbic Acid 40 H Chest X-Ray 01/06/18 06:10 IMPRESSION: Small left lower lobar atelectasis or scar. Head CT 01/06/18 06:26 IMPRESSION: No acute findings. 01/06/18 07:53 82-year-old female presents from home via EMS after a syncopal episode. Patient was seen by myself upon arrival. Vital signs were reviewed and within normal limits. Patient is afebrile, normotensive and not hypoxic. Patient does not appear toxic. They are in no acute distress. Previous medical records and nursing notes reviewed. CBC is without leukocytosis. CMP does show renal insufficiency with an elevated creatinine of 1.71 this is slightly worse than patient's baseline. Patient has an elevated INR of 3.90 secondary to Coumadin use. UA is significant for blood and nitrites but negative for leuk esterase. Urine culture pending. Patient was administered IV fluids, Zofran during her ED course. Orthostatic vital signs were negative. Patient will be admitted to the hospitalist for syncope evaluation. - Vital Signs Vital signs: Temp Pulse Resp BP Pulse Ox 98.1 F 78 13 106/46 L 98 01/06/18 12:01 01/06/18 05:21 01/06/18 12:01 01/06/18 12:01 01/06/18 12:01 - Laboratory Result Diagrams: 01/06/18 04:45 01/06/18 04:45 Laboratory results interpreted by me: 01/06/18 01/06/18 01/06/18 04:45 04:45 04:45 RBC 3.68 L Hgb 11.2 L Hct 33.5 L RDW 15.8 H Seg Neutrophils % 79.8 H Lymphocytes % 12.3 L PT 40.0 H APTT 53.4 H BUN 38 H Creatinine 1.71 H Est GFR ( Amer) 35 L Est GFR (Non-Af Amer) 29 L Glucose 129 H Urine Blood Urine Nitrite Urine Ascorbic Acid 01/06/18 08:30 RBC Hgb Hct RDW Seg Neutrophils % Lymphocytes % PT APTT BUN Creatinine Est GFR ( Amer) Est GFR (Non-Af Amer) Glucose Urine Blood MODERATE H Urine Nitrite POSITIVE H Urine Ascorbic Acid 40 H - Diagnostic Test Radiology reviewed: Image reviewed - EKG Interpretation by Me EKG shows normal: Sinus rhythm Rate: Normal Discharge - Discharge Clinical Impression: Syncope and collapse, Elevated INR, Renal insufficiency Disposition: ADMITTED OBSERVATION Admitting Provider: Hospitalist Unit Admitted: Telemetry
[2018-01-06 09:29] LABS: APPEARANCE,URINE CLOUDY; BILIRUBIN,URINE NEGATIVE (NEGATIVE); COLOR,URINE YELLOW; GLUCOSE, URINE NEGATIVE (NEGATIVE); KETONES,URINE NEGATIVE (NEGATIVE); LEUKOCYTE ESTERASE,URINE NEGATIVE (NEGATIVE); NITRITE,URINE POSITIVE (NEGATIVE); PROTEIN,URINE NEGATIVE (NEGATIVE); URINE SPECIFIC GRAVITY 1.015; UROBILINOGEN,URINE NEGATIVE mg/dL (<2.0)
--- NOTE | 2018-01-06 13:13 | PDOC H&P ---
History of Present Illness Admission Date/PCP: 01/06/18 ETHAN MCMAHON MD Patient complains of: Syncope and collapse History of Present Illness: 82-year-old female with past medical history of Coronary artery disease Chronic atrial fibrillation on warfarin Hypertension Gastroesophageal reflux disease Hyperlipidemia Stroke Myocardial infarction UTI She presented to the emergency room on January 06 with reports of knee and neck pain over the past few days for which she was taking tramadol. The patient reported that she woke up this morning and began walking to the bathroom, felt nauseated and passed out. She was unsure whether she struck her head, this was not witnessed. The patient denied any lightheadedness palpitations vertigo or chest pain prior to the episode. Her systolic blood pressures were within normal limits. Labs revealed acute on chronic renal failure and dehydration. CT of the head showed no acute changes. Chest x-ray showed a small left lobar atelectasis versus scar. CT of the cervical spine showed degenerative changes but no evidence of acute trauma. INR 3.9 Patient was given IV fluids. Urine analysis is pending. Outpatient medications: She does not have a list of her medications with her. Her healthcare power of tax attorney is her boyfriend Mr. Ronnie Perry phone # [phone]. She does report dysuria. Denies fevers or chills. Home medications have not been reconciled yet. Past Medical History Cardiac Medical History: Reports: Coronary Artery Disease, Myocardial Infarction , Hyperlipidema, Hypertension Denies: Atrial Fibrillation, Congestive Heart Failure, Peripheral Vascular Disease, Heart Murmur Pulmonary Medical History: Denies: Asthma, Chronic Obstructive Pulmonary Disease (COPD) Neurological Medical History: GI Medical History: Reports: Gastroesophageal Reflux Disease Musculoskeltal Medical History: Reports: Arthritis Hematology: Denies: Anemia Past Surgical History Past Surgical History: Reports: Coronary Artery Bypass Graft, Coronary Stent, Hysterectomy, Tubal Ligation Denies: Appendectomy, Section, Cholecystectomy, Gastric Bypass Surgery, Herniorrhaphy, Mastectomy, Pacemaker, Tonsillectomy Social History Smoking Status: Former Smoker Frequency of Alcohol Use: None Hx Recreational Drug Use: No Hx Prescription Drug Abuse: No Family History Family History: Hypertension Parental Family History Reviewed: Yes Children Family History Reviewed: Yes Sibling(s) Family History Reviewed.: Yes Medication/Allergy Allergies/Adverse Reactions: levofloxacin [From Levaquin] Allergy (Severe, Verified 04/10/17 11:26) Diarrhea Review of Systems Constitutional: ABSENT: fever(s) Eyes: ABSENT: visual disturbances Ears: ABSENT: hearing changes Nose, Mouth, and Throat: ABSENT: sore throat Cardiovascular: ABSENT: chest pain, orthropnea, palpitations Respiratory: ABSENT: dyspnea Gastrointestinal: ABSENT: abdominal pain, diarrhea, hematochezia, melena, vomiting Genitourinary: PRESENT: dysuria. ABSENT: hematuria Musculoskeletal: ABSENT: joint swelling Integumentary: ABSENT: pruritus Neurological: PRESENT: syncope. ABSENT: focal weakness Psychiatric: ABSENT: hallucinations Endocrine: PRESENT: cold intolerance Hematologic/Lymphatic: ABSENT: easy bleeding Allergic/Immunologic: ABSENT: seasonal rhinorrhea Physical Exam Vital Signs: Temp Pulse Resp BP Pulse Ox 98.0 F 78 12 102/47 L 92 01/06/18 05:21 01/06/18 05:21 01/06/18 09:02 01/06/18 09:02 01/06/18 09:02 Intake & Output 01/05/18 01/06/18 01/07/18 06:59 06:59 06:59 Weight 81.647 kg General appearance: PRESENT: no acute distress, well-nourished Head exam: PRESENT: normocephalic Eye exam: PRESENT: PERRLA, other - She has some mild subconjunctival hemorrhage in the right eye.. ABSENT: scleral icterus Mouth exam: PRESENT: moist Neck exam: ABSENT: tenderness, tracheal deviation Respiratory exam: PRESENT: clear to auscultation wojciech, symmetrical, unlabored Cardiovascular exam: PRESENT: RRR GI/Abdominal exam: PRESENT: normal bowel sounds, soft. ABSENT: tenderness Rectal exam: PRESENT: deferred Extremities exam: ABSENT: calf tenderness, pedal edema Musculoskeletal exam: PRESENT: normal inspection Neurological exam: PRESENT: alert, awake, oriented to person, oriented to place , oriented to time, oriented to situation Psychiatric exam: PRESENT: appropriate affect Skin exam: ABSENT: petechiae Results Laboratory Results: 01/06/18 04:45 01/06/18 04:45 01/06/18 01/06/18 04:45 04:45 WBC 9.6 RBC 3.68 L Hgb 11.2 L Hct 33.5 L MCV 91 MCH 30.3 MCHC 33.3 RDW 15.8 H Plt Count 198 Seg Neutrophils % 79.8 H Lymphocytes % 12.3 L Monocytes % 7.3 Eosinophils % 0.3 Basophils % 0.3 Absolute Neutrophils 7.7 Absolute Lymphocytes 1.2 Absolute Monocytes 0.7 Absolute Eosinophils 0.0 Absolute Basophils 0.0 Sodium 138.7 Potassium 4.8 Chloride 100 Carbon Dioxide 29 Anion Gap 10 BUN 38 H Creatinine 1.71 H Est GFR ( Amer) 35 L Est GFR (Non-Af Amer) 29 L Glucose 129 H Calcium 9.5 Total Bilirubin 0.5 AST 19 ALT 17 Alkaline Phosphatase 74 Total Protein 7.0 Albumin 4.2 01/06/18 01/06/18 04:45 04:45 Creatine Kinase 32 CK-MB (CK-2) 0.48 Troponin I < 0.012 Impressions: Chest X-Ray 01/06/18 06:10 IMPRESSION: Small left lower lobar atelectasis or scar. Head CT 01/06/18 06:26 IMPRESSION: No acute findings. Assessment & Plan - Diagnosis (1) Syncope and collapse Is this a current diagnosis for this admission?: Yes Plan: Likely secondary to dehydration and weakness. Monitor on tele, serial cardiac enzymes, IV fluids Check Ecocardiogram to r/o valvular abnormalities. fall precautions PT consult (2) Acute on chronic renal failure Is this a current diagnosis for this admission?: Yes Plan: IV fluids, avod nephrotoxic agents. Monitor kidney function. (3) Elevated INR Is this a current diagnosis for this admission?: Yes Plan: On Coumadin for Afib, keep INR between 2-3. Home medications have not been reconciled yet. (4) Chronic atrial fibrillation Is this a current diagnosis for this admission?: Yes Plan: Home medications have not been reconciled yet. (5) Coronary artery disease Qualifiers: Coronary Disease-Associated Artery/Lesion type: [place] artery [place] vs. transplanted heart: [place] heart Associated angina: without angina Qualified Code(s): I25.10 - Atherosclerotic heart disease of [place] coronary artery without angina pectoris Is this a current diagnosis for this admission?: Yes Plan: Restart home meds once reconciled (6) Essential hypertension Is this a current diagnosis for this admission?: Yes Plan: Home medications have not been reconciled yet. (7) GERD (gastroesophageal reflux disease) Qualifiers: Esophagitis presence: without esophagitis Qualified Code(s): K21.9 - Gastro -esophageal reflux disease without esophagitis Is this a current diagnosis for this admission?: Yes Plan: Start home meds once reconciled (8) History of stroke Is this a current diagnosis for this admission?: No Plan: Start meds once reconciled (9) Hyperlipidemia Qualifiers: Hyperlipidemia type: unspecified Qualified Code(s): E78.5 - Hyperlipidemia , unspecified Is this a current diagnosis for this admission?: Yes Plan: Start meds once reconciled (10) UTI (urinary tract infection) Is this a current diagnosis for this admission?: Yes Plan: Start Rocephin Urine and blood cultures. - Time Time Spent: 50 to 70 Minutes - Plan Summary Plan Summary: Observation- I anticipate she will require less than 2 midnights in the hospital.
[2018-01-06] MEDS ORDERED: ALBUTEROL SULFATE 0.083% NEB 2.5 MG/3 ML AMPUL NEB PRN (13:14)
[2018-01-06] MEDS ORDERED: ONDANSETRON 4 MG TAB.RAPDIS PO PRN (13:14)
[2018-01-06] MEDS ORDERED: ACETAMINOPHEN 325 MG TABLET PO PRN (13:14)
[2018-01-06] MEDS ORDERED: CEFTRIAXONE 1 GM/D5W RTU 1 GM/50 ML RTUPB IV SCH (14:00)
[2018-01-06] MEDS: NORMAL SALINE 1000 ML 1,000 ML IV PRN (14:38)
[2018-01-06 15:35] LABS: CREATINE KINASE MB 0.74 ng/mL (<4.55)
[2018-01-06 15:39] LABS: TROPONIN I < 0.012 ng/mL
[2018-01-06] MEDS: LACTOBACILLUS ACIDOPHILUS 250 MG TAB PO SCH (18:11)
[2018-01-06] MEDS: CEFTRIAXONE SODIUM 1,000 MG in DEXTROSE 5%-WATER 50 ML IV SCH (18:18)
[2018-01-06] MEDS ORDERED: (PENDING PHARMACY ID) (Nitroglycerin [Nitromist] 1 SPRAY) SL PRN (18:33)
[2018-01-06 20:09] LABS: CREATINE KINASE MB 0.42 ng/mL (<4.55)
[2018-01-06 20:10] LABS: TROPONIN I < 0.012 ng/mL
[2018-01-07 07:48] LABS: HEMATOCRIT 28.2 % (36.0-47.0); HEMOGLOBIN 9.8 g/dL (12.0-15.5); MEAN CORPUSCULAR HEMOGLOBIN 31.1 pg (27.0-33.4); MEAN CORPUSCULAR HGB CONC 34.8 g/dL (32.0-36.0); MEAN CORPUSCULAR VOLUME 89 fl (80-97); PLATELET COUNT 131 10^3/uL (150-450); RED BLOOD COUNT 3.16 10^6/uL (3.72-5.28); RED CELL DISTRIBUTION WIDTH 15.7 % (11.5-14.0)
[2018-01-07 07:55] LABS: INTERNATIONAL RATION (INR) 3.21; PROTHROMBIN TIME 34.3 SEC (11.4-15.4)
[2018-01-07 08:15] LABS: ANION GAP 8 (5-19); BLOOD UREA NITROGEN 26 mg/dL (7-20); CALCIUM 8.5 mg/dL (8.4-10.2); CARBON DIOXIDE 27 mmol/L (22-30); CHLORIDE 105 mmol/L (98-107); GLUCOSE 91 mg/dL (75-110); PHOSPHORUS 3.3 mg/dL (2.5-4.5); POTASSIUM 4.3 mmol/L (3.6-5.0); SODIUM 139.7 mmol/L (137-145)
[2018-01-07] MEDS ORDERED: (PENDING PHARMACY ID) (Isosorbide Mononitrate [Isosorbide Mononitrate Er] 120 MG) PO SCH (10:00)
[2018-01-07] MEDS: FERROUS SULFATE 325 MG TABLET PO SCH (10:13)
[2018-01-07] MEDS: ISOSORBIDE MONONITRATE 60 MG TAB.ER.24H PO SCH (10:15)
[2018-01-07] MEDS: LACTOBACILLUS ACIDOPHILUS 250 MG TAB PO SCH ×2 (10:16→17:49)
[2018-01-07] MEDS: CETIRIZINE 10 MG TABLET PO SCH (10:16)
[2018-01-07] MEDS: DOCUSATE SODIUM 100 MG CAPSULE PO SCH ×2 (10:16→17:55)
[2018-01-07] MEDS: CYANOCOBALAMIN (VITAMIN B-12) 1,000 MCG TABLET PO SCH (10:17)
[2018-01-07] MEDS: CYCLOSPORINE 0.05% OPH EMULSIO 0.4 ML DROPERETTE OU SCH ×2 (10:21→17:49)
[2018-01-07] MEDS: RANOLAZINE 500 MG TAB.SR.12H PO SCH (14:32)
[2018-01-07] MEDS: NORMAL SALINE 1000 ML 1,000 ML IV PRN (16:53)
[2018-01-07] MEDS: CEFTRIAXONE SODIUM 1,000 MG in DEXTROSE 5%-WATER 50 ML IV SCH (17:50)
--- NOTE | 2018-01-07 19:12 | PDOC PROGRESS REPORT ---
Subjective Progress Note for:: 01/07/18 Subjective:: Patient admitted with neck and knee pain as well as passing out. He feels better today. She is felt to be dehydrated with intravascular volume depletion. Reason For Visit: SYNCOPE AND COLLAPSE ARF UTI Physical Exam Vital Signs: Temp Pulse Resp BP Pulse Ox 97.6 F 58 L 20 130/56 H 98 01/07/18 16:29 01/07/18 16:29 01/07/18 16:29 01/07/18 16:29 01/07/18 16:29 Intake & Output 01/06/18 01/07/18 01/08/18 06:59 06:59 06:59 Intake Total 1200 360 Output Total 300 Balance 1200 60 Weight 76.5 kg General appearance: PRESENT: no acute distress, cooperative Head exam: PRESENT: atraumatic Eye exam: PRESENT: conjunctival injection Respiratory exam: PRESENT: clear to auscultation wojciech. ABSENT: rales, rhonchi, wheezes Cardiovascular exam: PRESENT: irregular rhythm Pulses: PRESENT: normal dorsalis pedis pul GI/Abdominal exam: PRESENT: normal bowel sounds, soft. ABSENT: distended, guarding, mass, organolmegaly, rebound, tenderness Rectal exam: PRESENT: deferred Extremities exam: PRESENT: full ROM. ABSENT: calf tenderness, clubbing, pedal edema Neurological exam: PRESENT: alert, awake, oriented to person, oriented to place , oriented to time Results Laboratory Results: 01/07/18 06:52 01/07/18 06:52 01/07/18 01/07/18 06:52 06:52 WBC 6.0 RBC 3.16 L Hgb 9.8 L Hct 28.2 L MCV 89 MCH 31.1 MCHC 34.8 RDW 15.7 H Plt Count 131 L Sodium 139.7 Potassium 4.3 Chloride 105 Carbon Dioxide 27 Anion Gap 8 BUN 26 H Creatinine 1.06 Est GFR ( Amer) > 60 Est GFR (Non-Af Amer) 50 L Glucose 91 Calcium 8.5 Phosphorus 3.3 Magnesium 2.0 01/06/18 01/06/18 14:50 19:20 CK-MB (CK-2) 0.74 0.42 Troponin I < 0.012 < 0.012 Impressions: Chest X-Ray 01/06/18 06:10 IMPRESSION: Small left lower lobar atelectasis or scar. Head CT 01/06/18 06:26 IMPRESSION: No acute findings. Assessment & Plan - Time Time Spent with patient: 15-24 minutes Medications reviewed and adjusted accordingly: Yes Anticipated discharge: Home - Inpatient Certification Based on my medical assessment, after consideration of the patient's comorbidities, presenting symptoms, or acuity I expect that the services needed warrant INPATIENT care.: Yes Medical Necessity: Need For IV Fluids, Need for IV Antibiotics - Plan Summary Plan Summary: 1. Syncope and collapse likely secondary to dehydration. Echocardiogram was done today and will follow up with the results. 2. Acute on chronic kidney failure currently on intravenous fluids. 3. Elevated INR on Coumadin for atrial fibrillation will adjust dose as needed INR today is 3.2. Patient takes 3mg daily. Will restart at 2mg 4. Chronic atrial fibrillation stable 5. Coronary artery disease chronic and stable 6. Essential hypertension 7. Old CVA
[2018-01-07] MEDS: TRAMADOL HCL 50 MG TABLET PO SCH (21:25)
[2018-01-07] MEDS ORDERED: WARFARIN SODIUM 2 MG TABLET PO SCH (22:00)
[2018-01-08] MEDS ORDERED: TROPICAMIDE 1% OPH SOLN 3 ML OS PRN (05:00)
[2018-01-08] MEDS ORDERED: KETOROLAC TROMETHAMINE 0.45% 4 DROP/0.4 ML DROPERETTE OS PRN (05:00)
[2018-01-08] MEDS ORDERED: BESIFLOXACIN HCL 0.6% OPH SUSP 5 ML BOTTLE OS PRN (05:00)
[2018-01-08] MEDS ORDERED: CYCLOPENTOLATE 0.2%/PHENYLEPHRINE 1% OPH SOLN 2 ML OS PRN (05:00)
[2018-01-08] MEDS ORDERED: TETRACAINE HCL 0.5% OPH SOLN 2 ML OS PRN (05:00)
[2018-01-08 06:56] LABS: INTERNATIONAL RATION (INR) 2.95; PROTHROMBIN TIME 32.1 SEC (11.4-15.4)
[2018-01-08] MEDS ORDERED: NITROGLYCERIN 0.4 MG/TAB 25 TAB/BOTTLE SL PRN (07:44)
[2018-01-08] MEDS: CYANOCOBALAMIN (VITAMIN B-12) 1,000 MCG TABLET PO SCH (10:27)
[2018-01-08] MEDS: LACTOBACILLUS ACIDOPHILUS 250 MG TAB PO SCH (10:27)
[2018-01-08] MEDS: TRAMADOL HCL 50 MG TABLET PO SCH (10:27)
[2018-01-08] MEDS: DOCUSATE SODIUM 100 MG CAPSULE PO SCH (10:27)
[2018-01-08] MEDS: FERROUS SULFATE 325 MG TABLET PO SCH (10:28)
[2018-01-08] MEDS: RANOLAZINE 500 MG TAB.SR.12H PO SCH (10:28)
[2018-01-08] MEDS: CETIRIZINE 10 MG TABLET PO SCH (10:28)
[2018-01-08] MEDS: ISOSORBIDE MONONITRATE 60 MG TAB.ER.24H PO SCH (10:29)
[2018-01-08] MEDS: CYCLOSPORINE 0.05% OPH EMULSIO 0.4 ML DROPERETTE OU SCH (10:35)
--- NOTE | 2018-01-08 10:43 | PDOC DISCHARGE SUMMARY ---
General - Admit/Disc Date/PCP Admission Date/Primary Care Provider: 01/06/18 09:38 ETHAN MCMAHON MD Discharge Date: 01/08/18 - Discharge Diagnosis (1) Acute on chronic renal failure Is this a current diagnosis for this admission?: Yes (2) Elevated INR Is this a current diagnosis for this admission?: Yes (3) Syncope and collapse Is this a current diagnosis for this admission?: Yes (4) UTI (urinary tract infection) Is this a current diagnosis for this admission?: Yes (5) Chronic atrial fibrillation Is this a current diagnosis for this admission?: Yes (6) Coronary artery disease Is this a current diagnosis for this admission?: Yes (7) Essential hypertension Is this a current diagnosis for this admission?: Yes - Additional Information Resuscitation Status: Do Not Resuscitate Discharge Diet: Cardiac Discharge Activity: Activity As Tolerated Prescriptions: Warfarin Sodium 3 mg PO QHS 30 Days #30 tablet Amox Tr/Potassium Clavulanate [Augmentin 875-125 mg Tablet] 1 tab PO BID #10 tablet Valsartan [Diovan 160 mg Tablet] 80 mg PO DAILY 30 Days #30 tablet Home Medications: Cetirizine HCl [Zyrtec 10 mg Tablet] 10 mg PO DAILY 01/06/18 Cyanocobalamin (Vitamin B-12) [Vitamin B-12 1000 mcg Tablet] 1,000 mcg PO DAILY 01/06/18 Cyclosporine 0.05% Oph Emulsio [Restasis 0.05% Oph Emulsion Pf 0.4 ml] 1 drop OU BID 01/06/18 Docusate Sodium [Colace 100 mg Capsule] 100 mg PO BID 01/06/18 Ferrous Sulfate [Feosol 325 mg Tablet] 325 mg PO DAILY 01/06/18 Isosorbide Mononitrate [Isosorbide Mononitrate ER] 120 mg PO DAILY 01/06/18 Nitroglycerin [Nitromist] 1 spray SL Q5MP PRN 01/06/18 Ranolazine [Ranexa 500 mg Tab.sr] 500 mg PO DAILY 01/06/18 Amox Tr/Potassium Clavulanate [Augmentin 875-125 mg Tablet] 1 tab PO BID #10 tablet 01/08/18 Tramadol HCl [Ultram 50 mg Tablet] 50 mg PO Q12 #0 01/08/18 Valsartan [Diovan 160 mg Tablet] 80 mg PO DAILY 30 Days #30 tablet 01/08/18 Warfarin Sodium 3 mg PO QHS 30 Days #30 tablet 01/08/18 History of Present Illness History of Present Illness: SUNITA BALLESTEROS is a 82 year old female This patient was admitted with nausea and vomiting complaints of passing out. She was found to be dehydrated. CT of the head showed no acute findings. She was also found to have a mild coagulopathy with INR of 3.9. Patient was monitored on medical unit with no adverse findings. Her clinical symptoms resolved on IV fluids. Patient was ambulated with no clinical findings. She was treated for urinary tract infection secondary to Escherichia coli for which she received intravenous antibiotic in hospital and has been discharged home on Augmentin. This may very well explain her initial presenting symptoms. Azotemia has resolved and patient appears to be back to baseline Her symptoms was thought to be due to possible overdose of Ultram effect and she has been advised to use it judiciously. He has also been started back on her Coumadin with advised to skip a dose today and restart tomorrow INR today is currently 2.9. Patient is otherwise hemodynamically stable and she has been discharged home in stable condition with outpatient follow-up Hospital Course Hospital Course: This patient was admitted with nausea and vomiting complaints of passing out. She was found to be dehydrated. CT of the head showed no acute findings. She was also found to have a mild coagulopathy with INR of 3.9. Patient was monitored on medical unit with no adverse findings. Her clinical symptoms resolved on IV fluids. Patient was ambulated with no clinical findings. She was treated for urinary tract infection secondary to Escherichia coli for which she received intravenous antibiotic in hospital and has been discharged home on Augmentin. This may very well explain her initial presenting symptoms. Azotemia has resolved and patient appears to be back to baseline Her symptoms was thought to be due to possible overdose of Ultram effect and she has been advised to use it judiciously. He has also been started back on her Coumadin with advised to skip a dose today and restart tomorrow INR today is currently 2.9. Patient is otherwise hemodynamically stable and she has been discharged home in stable condition with outpatient follow-up Physical Exam Vital Signs: Temp Pulse Resp BP Pulse Ox 97.9 F 52 L 18 125/58 L 98 01/08/18 07:34 01/08/18 07:34 01/08/18 07:34 01/08/18 07:34 01/08/18 07:34 Intake & Output 01/07/18 01/08/18 01/09/18 06:59 06:59 06:59 Intake Total 1200 2860 Output Total 700 Balance 1200 2160 Weight 76.5 kg 76.5 kg General appearance: PRESENT: no acute distress, well-nourished Head exam: PRESENT: atraumatic Ear exam: PRESENT: normal external ear exam Mouth exam: PRESENT: moist, tongue midline Neck exam: ABSENT: carotid bruit, JVD, lymphadenopathy, thyromegaly Respiratory exam: PRESENT: clear to auscultation wojciech. ABSENT: rales, rhonchi, wheezes Cardiovascular exam: PRESENT: irregular rhythm, +S1, +S2 GI/Abdominal exam: PRESENT: normal bowel sounds, soft. ABSENT: distended, guarding, mass, organolmegaly, rebound, tenderness Rectal exam: PRESENT: deferred Musculoskeletal exam: PRESENT: ambulatory Neurological exam: PRESENT: alert, awake, oriented to person, oriented to place , oriented to time, oriented to situation, CN II-XII grossly intact. ABSENT: motor sensory deficit Psychiatric exam: PRESENT: appropriate affect, normal mood. ABSENT: homicidal ideation, suicidal ideation Skin exam: PRESENT: dry, intact, warm. ABSENT: cyanosis, rash Results Laboratory Results: 01/07/18 06:52 01/07/18 06:52 01/06/18 10:30 Clean Catch Midstream Urine Culture - Final Escherichia Coli 01/06/18 01/06/18 14:50 19:20 CK-MB (CK-2) 0.74 0.42 Troponin I < 0.012 < 0.012 Impressions: Chest X-Ray 01/06/18 06:10 IMPRESSION: Small left lower lobar atelectasis or scar. Head CT 01/06/18 06:26 IMPRESSION: No acute findings. Qualifiers - * PATIENT BEING DISCHARGED WITH ANY OF THE FOLLOWING DIAGNOSIS: No Plan Time Spent: Less than 30 Minutes
[2018-01-08 11:25] VITALS: BP 129/76
== END 2018-01-08 12:15 | disposition home or self-care (01) ==
LOC: ER 04:59 → EH 09:38 → 5 21:45
PROVIDERS: ADMIT Internal Medicine; ATTEND Internal Medicine
DX: N17.9 Acute kidney failure, unspecified (principal); I12.9 Hypertensive chronic kidney disease with stage 1 through stage 4 chronic kidney disease, or unspecified chronic kidney disease; N18.9 Chronic kidney disease, unspecified; R79.1 Abnormal coagulation profile; R55 Syncope and collapse; N39.0 Urinary tract infection, site not specified; B96.20 Unspecified Escherichia coli [E. coli] as the cause of diseases classified elsewhere; I48.2 Chronic atrial fibrillation; I25.10 Atherosclerotic heart disease of native coronary artery without angina pectoris; R11.2 Nausea with vomiting, unspecified; E86.0 Dehydration; Z66 Do not resuscitate; Z79.899 Other long term (current) drug therapy; I25.2 Old myocardial infarction; M54.2 Cervicalgia; M25.569 Pain in unspecified knee; H11.31 Conjunctival hemorrhage, right eye; K21.9 Gastro-esophageal reflux disease without esophagitis; E78.5 Hyperlipidemia, unspecified; M19.90 Unspecified osteoarthritis, unspecified site; Z86.73 Personal history of transient ischemic attack (TIA), and cerebral infarction without residual deficits; Z95.1 Presence of aortocoronary bypass graft; Z95.5 Presence of coronary angioplasty implant and graft; Z87.891 Personal history of nicotine dependence; Z98.51 Tubal ligation status; Z90.710 Acquired absence of both cervix and uterus; Z82.49 Family history of ischemic heart disease and other diseases of the circulatory system; Z79.01 Long term (current) use of anticoagulants
CPT/HCPCS: 93005; 99285; 96361; 51701; 96375; 96365; 36415 ×3; 87040; 87086; 82553; 82550; 83735; 84100; 85025; 85027; 85610 ×3; 85730; 87088; 80048; 80053; 81001; 84484; 87186; 71046; 70450; 72125; 93010; 97110; 97163; G0378 ×4; A9270 ×16; J0696 ×2; J2405; J7030 ×2; J7040; G8978; G8979; J3490

== ENCOUNTER → 2018-01-28 | Outpatient (CLI) | payer MEDICARE, OTHER ==
[2018-01-28 17:03] LABS: INTERNATIONAL RATION (INR) 1.64; PROTHROMBIN TIME 20.2 SEC (11.4-15.4)
== END ==
LOC: OD 15:14
PROVIDERS: ATTEND Internal Medicine
DX: I48.0 Paroxysmal atrial fibrillation (principal)
CPT/HCPCS: 36415; 85610

== ENCOUNTER → 2018-02-26 | Outpatient (CLI) | payer MEDICARE, OTHER ==
[2018-02-26 12:02] LABS: INTERNATIONAL RATION (INR) 2.58; PROTHROMBIN TIME 28.9 SEC (11.4-15.4)
== END ==
LOC: OD 10:39
PROVIDERS: ATTEND Internal Medicine
DX: I48.0 Paroxysmal atrial fibrillation (principal)
CPT/HCPCS: 36415; 85610

== ENCOUNTER 2018-03-16 09:34 | Emergency (ER) | payer MEDICARE, OTHER ==
[2018-03-16] MEDS ORDERED: ACETAMINOPHEN 325 MG TABLET PO ONE (09:55)
[2018-03-16] MEDS ORDERED: NORMAL SALINE 500 ML IV ONE (10:11)
--- NOTE | 2018-03-16 10:21 | ER Document Report ---
ED General - General Chief Complaint: Pain With Urination Stated Complaint: FEVER Time Seen by Provider: 03/16/18 09:52 Mode of Arrival: Ambulatory Information source: Patient Notes: 83-year-old female with coronary artery disease, hypertension, hyperlipidemia, previous CVA presents from home via EMS with complaint of fever and pain with urination. Patient states that she developed pain while urinating 2 days ago. She states that she has experienced chills and sweats but did not check her temperature. Patient denies nausea, vomiting, chest pain, shortness of breath, abdominal pain, flank pain. She reports that she has been eating and drinking normally. Her last bowel movement was today. She denies any black or bloody stools. TRAVEL OUTSIDE OF THE [place] IN LAST 30 DAYS: No - HPI Onset: Other Onset/Duration: Gradual Quality of pain: No pain Associated symptoms: Fever. denies: Body/muscle aches, Chest pain, Productive cough, Nausea, Vomiting, Shortness of breath, Weakness Exacerbated by: Denies Relieved by: Denies Similar symptoms previously: Yes Recently seen / treated by doctor: Yes - Related Data Allergies/Adverse Reactions: levofloxacin [From Levaquin] Allergy (Severe, Verified 04/10/17 11:26) Diarrhea Past Medical History - General Information source: Patient, [facility] Records - Social History Smoking Status: Never Smoker Frequency of alcohol use: None Drug Abuse: None Lives with: Alone Family History: Hypertension Patient has suicidal ideation: No Patient has homicidal ideation: No - Past Medical History Cardiac Medical History: Reports: Hx Coronary Artery Disease, Hx Heart Attack, Hx Hypercholesterolemia, Hx Hypertension Denies: Hx Atrial Fibrillation, Hx Congestive Heart Failure, Hx Peripheral Vascular Disease, Hx Heart Murmur Pulmonary Medical History: Denies: Hx Asthma, Hx Bronchitis, Hx COPD, Hx Pneumonia, Hx Tuberculosis Neurological Medical History: Reports: Hx Cerebrovascular Accident Renal/ Medical History: Denies: Hx Peritoneal Dialysis GI Medical History: Reports: Hx Gastroesophageal Reflux Disease Musculoskeltal Medical History: Reports Hx Arthritis Past Surgical History: Reports: Hx Cardiac Surgery - "bypass", Hx Coronary Artery Bypass Graft, Hx Coronary Stent, Hx Hysterectomy, Hx Tubal Ligation. Denies: Hx Appendectomy, Hx Bowel Surgery, Hx Section, Hx Cholecystectomy, Hx Gastric Bypass Surgery, Hx Herniorrhaphy, Hx Mastectomy, Hx Pacemaker, Hx Tonsillectomy - Immunizations Hx Diphtheria, Pertussis, Tetanus Vaccination: No Review of Systems - Review of Systems Constitutional: Fever. denies: Weakness EENT: denies: Blurred vision Cardiovascular: denies: Chest pain, Palpitations, Dyspnea, Syncope, Dizziness Respiratory: denies: Cough, Short of breath Gastrointestinal: denies: Abdominal pain Genitourinary: Dysuria. denies: Frequency, Flank pain Female Genitourinary: No symptoms reported Musculoskeletal: Joint pain Skin: denies: Rash Hematologic/Lymphatic: No symptoms reported Neurological/Psychological: denies: Confusion, Lost consciousness, Headaches -: Yes All other systems reviewed and negative Physical Exam - Vital signs Vitals: Temp Pulse Resp BP Pulse Ox 101.7 F H 89 16 122/78 94 03/16/18 09:49 03/16/18 09:49 03/16/18 09:49 03/16/18 09:49 03/16/18 09:49 - Notes Notes: PHYSICAL EXAMINATION: GENERAL: Well-appearing, well-nourished and in no acute distress. HEAD: Atraumatic, normocephalic. EYES: Pupils equal round and reactive to light, extraocular movements intact, conjunctiva are normal. ENT: Nares patent, oropharynx clear without exudates. Moist mucous membranes. NECK: Normal range of motion, supple without lymphadenopathy LUNGS: Breath sounds clear to auscultation bilaterally and equal. No wheezes rales or rhonchi. HEART: Regular rate and rhythm without murmurs ABDOMEN: Soft, nontender, nondistended abdomen. No guarding, no rebound. No masses appreciated. Female : deferred Musculoskeletal: Normal range of motion, no pitting or edema. No cyanosis. NEUROLOGICAL: Cranial nerves grossly intact. Normal speech, normal gait. Normal sensory, motor exams PSYCH: Normal mood, normal affect. SKIN: Warm, Dry, normal turgor, no rashes or lesions noted. - General General appearance: Appears well Course - Re-evaluation Re-evalutation: 03/16/18 19:01 Laboratory 03/16/18 03/16/18 03/16/18 10:23 10:23 10:23 WBC 9.9 RBC 3.50 L Hgb 10.8 L Hct 31.1 L MCV 89 MCH 30.7 MCHC 34.6 RDW 13.9 Plt Count 185 Total Counted 100 Seg Neutrophils % Not Reportable Seg Neuts % (Manual) 93 H Lymphocytes % Not Reportable Lymphocytes % (Manual) 0 L Atypical Lymphs % 1 Monocytes % Not Reportable Monocytes % (Manual) 4 Eosinophils % Not Reportable Eosinophils % (Manual) 0 Basophils % Not Reportable Basophils % (Manual) 1 Metamyelocytes % 1 H Absolute Neutrophils Not Reportable Abs Neuts (Manual) 9.3 H Absolute Lymphocytes Not Reportable Abs Lymphs (Manual) 0.1 L Absolute Monocytes Not Reportable Abs Monocytes (Manual) 0.4 Absolute Eosinophils Not Reportable Absolute Eos (Manual) 0.0 Absolute Basophils Not Reportable Abs Basophils (Manual) 0.1 Toxic Granulation SLIGHT Toxic Vacuolation PRESENT Platelet Comment ADEQUATE Polychromasia Not Reportable Hypochromasia SLIGHT Poikilocytosis 1+ Tear Drop Cells SLIGHT Ovalocytes 1+ Helmet Cells SLIGHT Acanthocytes (Spur) SLIGHT PT 31.6 H INR 2.89 Sodium 140.1 Potassium 4.2 Chloride 104 Carbon Dioxide 25 Anion Gap 11 BUN 22 H Creatinine 1.18 Est GFR ( Amer) 53 L Est GFR (Non-Af Amer) 44 L Glucose 117 H Calcium 8.9 Total Bilirubin 0.4 Direct Bilirubin 0.4 Neonat Total Bilirubin Not Reportable Neonat Direct Bilirubin Not Reportable Neonat Indirect Bili Not Reportable AST 28 ALT 12 Alkaline Phosphatase 70 Total Protein 6.8 Albumin 3.8 Urine Color Urine Appearance Urine pH Ur Specific [place] Urine Protein Urine Glucose (UA) Urine Ketones Urine Blood Urine Nitrite Urine Bilirubin Urine Urobilinogen Ur Leukocyte Esterase Urine WBC (Auto) Urine RBC (Auto) Urine Bacteria (Auto) Urine WBC Clumps Squamous Epi Cells Auto Amorphous Sediment Auto Urine Mucus (Auto) Urine Ascorbic Acid 03/16/18 10:23 WBC RBC Hgb Hct MCV MCH MCHC RDW Plt Count Total Counted Seg Neutrophils % Seg Neuts % (Manual) Lymphocytes % Lymphocytes % (Manual) Atypical Lymphs % Monocytes % Monocytes % (Manual) Eosinophils % Eosinophils % (Manual) Basophils % Basophils % (Manual) Metamyelocytes % Absolute Neutrophils Abs Neuts (Manual) Absolute Lymphocytes Abs Lymphs (Manual) Absolute Monocytes Abs Monocytes (Manual) Absolute Eosinophils Absolute Eos (Manual) Absolute Basophils Abs Basophils (Manual) Toxic Granulation Toxic Vacuolation Platelet Comment Polychromasia Hypochromasia Poikilocytosis Tear Drop Cells Ovalocytes Helmet Cells Acanthocytes (Spur) PT INR Sodium Potassium Chloride Carbon Dioxide Anion Gap BUN Creatinine Est GFR ( Amer) Est GFR (Non-Af Amer) Glucose Calcium Total Bilirubin Direct Bilirubin Neonat Total Bilirubin Neonat Direct Bilirubin Neonat Indirect Bili AST ALT Alkaline Phosphatase Total Protein Albumin Urine Color YELLOW Urine Appearance SLIGHTLY-CLOUDY Urine pH 7.0 Ur Specific [place] 1.010 Urine Protein NEGATIVE Urine Glucose (UA) NEGATIVE Urine Ketones NEGATIVE Urine Blood NEGATIVE Urine Nitrite POSITIVE H Urine Bilirubin NEGATIVE Urine Urobilinogen NEGATIVE Ur Leukocyte Esterase TRACE H Urine WBC (Auto) 7 Urine RBC (Auto) 1 Urine Bacteria (Auto) TRACE Urine WBC Clumps FEW Squamous Epi Cells Auto <1 Amorphous Sediment Auto 1+ Urine Mucus (Auto) RARE Urine Ascorbic Acid 40 H 83-year-old female presents with complaint of dysuria that started 2 days ago. Upon arrival she is febrile but not hypotensive or tachycardic. She is alert and oriented 3 and is in no acute distress. Patient found to have a urinary tract infection. CBC is without leukocytosis but shows mild anemia. CMP is without electrolyte abnormalities or abnormal kidney function. Previous urine cultures reviewed which showed E. coli growth. Patient received IV fluids, Tylenol, 1 g of Rocephin during her ED course. On reevaluation patient is resting comfortably has no complaints and her fever has resolved. Patient will be discharged with a prescription for Bactrim. Patient provided the opportunity to ask questions, and express concerns. Discharge instructions discussed. Patient is agreeable with discharge home. Return indications explained and discussed with the patient who displays understanding. Patient encouraged to return to the emergency department immediately with any concerns. - Vital Signs Vital signs: Temp Pulse Resp BP Pulse Ox 98 F 82 14 132/68 H 100 03/16/18 12:55 03/16/18 12:55 03/16/18 12:55 03/16/18 12:55 03/16/18 12:55 - Laboratory Result Diagrams: 03/16/18 10:23 03/16/18 10:23 Laboratory results interpreted by me: 03/16/18 03/16/18 03/16/18 10:23 10:23 10:23 RBC 3.50 L Hgb 10.8 L Hct 31.1 L Seg Neuts % (Manual) 93 H Lymphocytes % (Manual) 0 L Metamyelocytes % 1 H Abs Neuts (Manual) 9.3 H Abs Lymphs (Manual) 0.1 L PT 31.6 H BUN 22 H Est GFR ( Amer) 53 L Est GFR (Non-Af Amer) 44 L Glucose 117 H Urine Nitrite Ur Leukocyte Esterase Urine Ascorbic Acid 03/16/18 10:23 RBC Hgb Hct Seg Neuts % (Manual) Lymphocytes % (Manual) Metamyelocytes % Abs Neuts (Manual) Abs Lymphs (Manual) PT BUN Est GFR ( Amer) Est GFR (Non-Af Amer) Glucose Urine Nitrite POSITIVE H Ur Leukocyte Esterase TRACE H Urine Ascorbic Acid 40 H Discharge - Discharge Clinical Impression: UTI (urinary tract infection) Qualifiers: Urinary tract infection type: acute cystitis Hematuria presence: without hematuria Qualified Code(s): N30.00 - Acute cystitis without hematuria Fever Qualifiers: Fever type: unspecified Qualified Code(s): R50.9 - Fever, unspecified Condition: Good Disposition: HOME, SELF-CARE Instructions: Fever ([facility]), Urinary Tract Infection ([facility]) Prescriptions: Sulfamethoxazole/Trimethoprim [Bactrim Ds Tablet] 1 each PO BID 5 Days #10 tablet Referrals: ETHAN MCMAHON MD [Primary Care Provider] - Follow up in 3-5 days
[2018-03-16] MEDS ORDERED: CEFTRIAXONE 1 GM/D5W RTU 1 GM/50 ML RTUPB IV ONE (10:22)
[2018-03-16 10:46] LABS: HEMATOCRIT 31.1 % (36.0-47.0); HEMOGLOBIN 10.8 g/dL (12.0-15.5); MEAN CORPUSCULAR HEMOGLOBIN 30.7 pg (27.0-33.4); MEAN CORPUSCULAR HGB CONC 34.6 g/dL (32.0-36.0); MEAN CORPUSCULAR VOLUME 89 fl (80-97); PLATELET COUNT 185 10^3/uL (150-450); RED CELL DISTRIBUTION WIDTH 13.9 % (11.5-14.0); WHITE BLOOD COUNT 9.9 10^3/uL (4.0-10.5)
[2018-03-16 10:55] LABS: AMORPHOUS SEDIMENT,URINE 1+ /HPF; APPEARANCE,URINE SLIGHTLY-CLOUDY; BILIRUBIN,URINE NEGATIVE (NEGATIVE); COLOR,URINE YELLOW; GLUCOSE, URINE NEGATIVE (NEGATIVE); KETONES,URINE NEGATIVE (NEGATIVE); LEUKOCYTE ESTERASE,URINE TRACE (NEGATIVE); NITRITE,URINE POSITIVE (NEGATIVE); PROTEIN,URINE NEGATIVE (NEGATIVE); UROBILINOGEN,URINE NEGATIVE mg/dL (<2.0)
[2018-03-16 11:00] LABS: INTERNATIONAL RATION (INR) 2.89; PROTHROMBIN TIME 31.6 SEC (11.4-15.4)
[2018-03-16] MEDS ORDERED: CEFTRIAXONE SODIUM 1,000 MG in DEXTROSE 5%-WATER 50 ML IV ONE (11:00)
[2018-03-16 11:10] LABS: ALANINE AMINOTRANSFERASE 12 U/L (9-52); ALBUMIN 3.8 g/dL (3.5-5.0); ALKALINE PHOSPHATASE 70 U/L (38-126); ANION GAP 11 (5-19); ASPARTATE AMINO TRANSFERASE 28 U/L (14-36); BILIRUBIN,DIRECT 0.4 mg/dL (0.0-0.4); BILIRUBIN,TOTAL 0.4 mg/dL (0.2-1.3); BLOOD UREA NITROGEN 22 mg/dL (7-20); CALCIUM 8.9 mg/dL (8.4-10.2); CARBON DIOXIDE 25 mmol/L (22-30); CHLORIDE 104 mmol/L (98-107); GLUCOSE 117 mg/dL (75-110); POTASSIUM 4.2 mmol/L (3.6-5.0); SODIUM 140.1 mmol/L (137-145); TOTAL PROTEIN 6.8 g/dL (6.3-8.2)
[2018-03-16 11:26] LABS: ABSOLUTE LYMPHOCYTES# (MANUAL) 0.1 10^3/uL (0.5-4.7); ABSOLUTE MONOCYTES # (MANUAL) 0.4 10^3/uL (0.1-1.4); ABSOLUTE NEUTROPHILS# (MANUAL) 9.3 10^3/uL (1.7-8.2); BASOPHILS % (MANUAL) 1 % (0-2); EOSINOPHILS % (MANUAL) 0 % (0-6); LYMPHOCYTES % (MANUAL) 0 % (13-45); METAMYELOCYTES % (MANUAL) 1 % (0); MONOCYTES % (MANUAL) 4 % (3-13); SEGMENTED NEUTROPHILS % (MAN) 93 % (42-78); TOTAL CELLS COUNTED 100
[2018-03-16 11:36] LABS: ACANTHOCYTES SLIGHT
[2018-03-16 11:37] LABS: OVALOCYTES 1+
[2018-03-16 11:39] LABS: PLATELET COMMENT ADEQUATE; TOXIC VACUOLATION PRESENT
[2018-03-16 11:41] LABS: TOXIC GRANULATION SLIGHT
[2018-03-16 11:42] LABS: HELMET CELLS SLIGHT; HYPOCHROMASIA SLIGHT
[2018-03-16 11:43] LABS: POIKILOCYTOSIS 1+; TEAR DROP CELLS SLIGHT
--- NOTE | 2018-03-16 12:46 | EKG REPORT ---
SEVERITY:- ABNORMAL ECG - SINUS RHYTHM INFERIOR INFARCT, AGE INDETERMINATE : Confirmed by: Brennen Hancock MD 16-Mar-2018 12:45:31
[2018-03-16 12:56] VITALS: BP 132/68
== END 2018-03-16 12:58 | disposition home or self-care (01) ==
LOC: ER 09:34
DX: N30.00 Acute cystitis without hematuria (principal); R50.9 Fever, unspecified; M25.50 Pain in unspecified joint; D64.9 Anemia, unspecified; I25.10 Atherosclerotic heart disease of native coronary artery without angina pectoris; I10 Essential (primary) hypertension; Z88.1 Allergy status to other antibiotic agents; Z95.1 Presence of aortocoronary bypass graft
CPT/HCPCS: 93005; 99284; 96365; 36415; 87040; 85025; 85610; 80053; 81001; 93010; J0696; J7040

== ENCOUNTER → 2018-04-28 | Outpatient (CLI) | payer MEDICARE, OTHER ==
[2018-04-28 15:49] LABS: INTERNATIONAL RATION (INR) 3.49; PROTHROMBIN TIME 36.6 SEC (11.4-15.4)
== END ==
LOC: OD 14:19
PROVIDERS: ATTEND Internal Medicine
DX: I48.0 Paroxysmal atrial fibrillation (principal)
CPT/HCPCS: 36415; 85610

== ENCOUNTER → 2018-05-19 | Outpatient (CLI) | payer MEDICARE, OTHER ==
[2018-05-19 16:21] LABS: INTERNATIONAL RATION (INR) 2.96; PROTHROMBIN TIME 32.2 SEC (11.4-15.4)
== END ==
LOC: OD 15:00
PROVIDERS: ATTEND Internal Medicine
DX: I48.0 Paroxysmal atrial fibrillation (principal)
CPT/HCPCS: 36415; 85610

== ENCOUNTER → 2018-07-07 | Outpatient (CLI) | payer MEDICARE, OTHER ==
[2018-07-07 16:31] LABS: INTERNATIONAL RATION (INR) 2.06; PROTHROMBIN TIME 24.2 SEC (11.4-15.4)
== END ==
LOC: OD 15:18
PROVIDERS: ATTEND Internal Medicine
DX: I48.0 Paroxysmal atrial fibrillation (principal)
CPT/HCPCS: 36415; 85610

== ENCOUNTER → 2018-08-10 | Outpatient (CLI) | payer MEDICARE, OTHER ==
[2018-08-10 15:56] LABS: INTERNATIONAL RATION (INR) 3.14; PROTHROMBIN TIME 33.7 SEC (11.4-15.4)
[2018-08-10 16:10] LABS: TRIGLYCERIDES 149 mg/dL (<150)
[2018-08-10 16:21] LABS: DIRECT LDL 114 mg/dL (<100)
== END ==
LOC: OD 15:14
PROVIDERS: ATTEND Internal Medicine
DX: I25.10 Atherosclerotic heart disease of native coronary artery without angina pectoris (principal); Z98.61 Coronary angioplasty status; I48.1 Persistent atrial fibrillation; I34.0 Nonrheumatic mitral (valve) insufficiency; I10 Essential (primary) hypertension; I25.2 Old myocardial infarction; K21.9 Gastro-esophageal reflux disease without esophagitis; R09.89 Other specified symptoms and signs involving the circulatory and respiratory systems; Z95.1 Presence of aortocoronary bypass graft; E78.49 Other hyperlipidemia; I35.1 Nonrheumatic aortic (valve) insufficiency; Z79.899 Other long term (current) drug therapy
CPT/HCPCS: 36415; 80061; 85610

== ENCOUNTER 2018-09-28 03:13 | Inpatient (IN) | payer MEDICARE, OTHER ==
--- NOTE | 2018-09-28 03:24 | ER Document Report ---
ED General - General Stated Complaint: NAUSEA Time Seen by Provider: 09/28/18 03:19 Notes: Patient is an 83-year-old female presents with complaints of sudden onset of a sharp chest pain with some pain radiating into her bilateral shoulder blades and down her arms. She also had some nausea associated with it. She initially thought it could be related to acid reflux however the pain continued and therefore she took a dose of her nitro. The nitro relieved her pain. She is currently pain-free. She does have a history of coronary disease. She has had stents and had coronary bypass surgery 1991. She says is been several years since she has had a stress test in several years since she has had a cardiac catheterization. Her house parent is Dr. Eugene. Her primary care doctor is Dr. Ramirez. No recent fevers or infections. No other complaints at this time. TRAVEL OUTSIDE OF THE [place] IN LAST 30 DAYS: No - Related Data Allergies/Adverse Reactions: levofloxacin [From Levaquin] Allergy (Severe, Verified 09/28/18 03:41) Diarrhea Past Medical History - Social History Smoking Status: Unknown if Ever Smoked Frequency of alcohol use: None Drug Abuse: None Family History: Hypertension - Past Medical History Cardiac Medical History: Reports: Hx Coronary Artery Disease, Hx Heart Attack, Hx Hypercholesterolemia, Hx Hypertension Denies: Hx Atrial Fibrillation, Hx Congestive Heart Failure, Hx Peripheral Vascular Disease, Hx Heart Murmur Pulmonary Medical History: Denies: Hx Asthma, Hx Bronchitis, Hx COPD, Hx Pneumonia, Hx Tuberculosis Neurological Medical History: Reports: Hx Cerebrovascular Accident Renal/ Medical History: Denies: Hx Peritoneal Dialysis GI Medical History: Reports: Hx Gastroesophageal Reflux Disease Musculoskeletal Medical History: Reports Hx Arthritis Past Surgical History: Reports: Hx Cardiac Surgery - "bypass", Hx Coronary Artery Bypass Graft, Hx Coronary Stent, Hx Hysterectomy, Hx Tubal Ligation. Denies: Hx Appendectomy, Hx Bowel Surgery, Hx Section, Hx Cholecystectomy, Hx Gastric Bypass Surgery, Hx Herniorrhaphy, Hx Mastectomy, Hx Pacemaker, Hx Tonsillectomy - Immunizations Hx Diphtheria, Pertussis, Tetanus Vaccination: No Review of Systems - Review of Systems Notes: My Normal Review Basic REVIEW OF SYSTEMS: CONSTITUTIONAL : Denies fever, chills, or sweats. Denies recent illness. EENT: Denies eye, ear, throat, or mouth pain or symptoms. Denies nasal or sinus congestion. CARDIOVASCULAR: chest pain. RESPIRATORY: Denies cough, cold, or chest congestion. Denies shortness of breath, difficulty breathing, or wheezing. GASTROINTESTINAL: Denies abdominal pain. Denies nausea, vomiting, or diarrhea. MUSCULOSKELETAL: Denies neck or back pain or joint pain or swelling. SKIN: Denies rash or skin lesions. NEUROLOGICAL: Denies altered mental status or loss of consciousness. Denies headache. Denies weakness or paralysis or loss of use of either side. Denies problems with gait or speech. Denies sensory or motor loss. ALL OTHER SYSTEMS REVIEWED AND NEGATIVE. Physical Exam - Vital signs Vitals: Temp Pulse Resp BP Pulse Ox 97.8 F 87 19 157/68 H 99 09/28/18 03:15 09/28/18 03:15 09/28/18 03:15 09/28/18 03:15 09/28/18 03:15 - Notes Notes: General Appearance: Well nourished, alert, cooperative, no acute distress, no obvious discomfort. Vitals: reviewed, See vital signs table. Head: no swelling or tenderness to the head Eyes: PERRL, EOMI, Conjuctiva clear Mouth: No decreasd moisture Lungs: No wheezing, No rales, No rhonci, No accessory muscle use, good air exchange bilaterally. Heart: Normal rate, Regular rythm, systolic murmur, no rub Abdomen: Normal BS, soft, No rigidity, No abdominal tenderness, No guarding, no rebound, no abdominal masses, no organomegaly rectal: brown stool which is guiac postive Extremities: strength 5/5 in all extremities, good pulses in all extremities, no swelling or tenderness in the extremities, no edema. Skin: warm, dry, appropriate color, no rash Neuro: speech clear, oriented x 3, normal affect, responds appropriately to questions. Course - Re-evaluation Re-evalutation: 09/28/18 04:13 We do not currently have GI coverage until tomorrow. I therefore spoke with her general surgeon, Dr. Potts. He said that they be more than happy to consult for endoscopy or colonoscopy if needed either tonight or today. Patient currently is asymptomatic except for some weakness. Chest pain is gone. She looks well. Her vital signs are stable. I have given her dose of Protonix. I have ordered packed red blood cells as well as plasma. I have spoken with the hospitalist, Dr. Tavares, who agrees to evaluate the patient for admission. Dictation of this chart was performed using voice recognition software; therefore, there may be some unintended grammatical errors. - Vital Signs Vital signs: Temp Pulse Resp BP Pulse Ox 97.8 F 87 15 127/59 H 95 09/28/18 03:15 09/28/18 03:15 09/28/18 03:31 09/28/18 03:31 09/28/18 03:31 - Laboratory Result Diagrams: 09/28/18 03:16 09/28/18 03:16 Laboratory results interpreted by me: 09/28/18 09/28/18 09/28/18 03:16 03:16 03:16 RBC 2.10 L Hgb 5.7 L Hct 17.7 L RDW 23.5 H Seg Neutrophils % 80.2 H Lymphocytes % 12.7 L PT 48.8 H* INR 5.02 H* Sodium 135.6 L BUN 44 H Est GFR ( Amer) 55 L Est GFR (Non-Af Amer) 45 L Glucose 113 H Total Protein 5.7 L Crossmatch 09/28/18 03:56 RBC Hgb Hct RDW Seg Neutrophils % Lymphocytes % PT INR Sodium BUN Est GFR ( Amer) Est GFR (Non-Af Amer) Glucose Total Protein Crossmatch See Detail - EKG Interpretation by Me Additional EKG results interpreted by me: 09/28/18 03:24 EKG is reviewed and interpreted by me. EKG shows sinus rhythm with a rate of [address] segment elevation. No ST segment depression. NV interval, QRS d uration are within normal range. QT interval is slightly prolonged. Old EKG for comparison is from March 16, 2018. 09/28/18 03:25 Discharge - Discharge Clinical Impression: Elevated INR Chest pain Qualifiers: Chest pain type: unspecified Qualified Code(s): R07.9 - Chest pain, unspecified GI bleed Qualifiers: GI bleed type/associated pathology: unspecified gastrointestinal hemorrhage type Qualified Code(s): K92.2 - Gastrointestinal hemorrhage, unspecified Condition: Stable Disposition: ADMITTED INPATIENT Admitting Provider: Hospitalist Unit Admitted: [facility], [place]
[2018-09-28 03:45] LABS: ABSOLUTE EOSINOPHILS # (AUTO) 0.1 10^3/uL (0.0-0.6); ABSOLUTE LYMPHOCYTES (AUTO) 1.1 10^3/uL (0.5-4.7); ABSOLUTE MONOCYTES (AUTO) 0.5 10^3/uL (0.1-1.4); BASOPHILS % (AUTO) 0.3 % (0-2); EOSINOPHILS % (AUTO) 1.3 % (0-6); HEMATOCRIT 17.7 % (36.0-47.0); LYMPHOCYTES % (AUTO) 12.7 % (13-45); MEAN CORPUSCULAR HEMOGLOBIN 27.1 pg (27.0-33.4); MEAN CORPUSCULAR HGB CONC 32.2 g/dL (32.0-36.0); MEAN CORPUSCULAR VOLUME 84 fl (80-97); MONOCYTES % (AUTO) 5.5 % (3-13); PLATELET COUNT 268 10^3/uL (150-450); RED CELL DISTRIBUTION WIDTH 23.5 % (11.5-14.0); SEGMENTED NEUTROPHILS % (AUTO) 80.2 % (42-78); TOTAL CELLS COUNTED % (AUTO) 100 %; WHITE BLOOD COUNT 8.8 10^3/uL (4.0-10.5)
[2018-09-28 03:47] LABS: ALANINE AMINOTRANSFERASE 29 U/L (9-52); ALBUMIN 3.6 g/dL (3.5-5.0); ALKALINE PHOSPHATASE 58 U/L (38-126); ANION GAP 6 (5-19); ASPARTATE AMINO TRANSFERASE 24 U/L (14-36); BILIRUBIN,DIRECT 0.2 mg/dL (0.0-0.4); BILIRUBIN,TOTAL 0.2 mg/dL (0.2-1.3); BLOOD UREA NITROGEN 44 mg/dL (7-20); CALCIUM 9.2 mg/dL (8.4-10.2); CARBON DIOXIDE 27 mmol/L (22-30); CHLORIDE 103 mmol/L (98-107); GLUCOSE 113 mg/dL (75-110); HEMOGLOBIN 5.7 g/dL (12.0-15.5); POTASSIUM 4.3 mmol/L (3.6-5.0); SODIUM 135.6 mmol/L (137-145); TOTAL PROTEIN 5.7 g/dL (6.3-8.2)
[2018-09-28] MEDS ORDERED: NORMAL SALINE 250 ML IV PRN ×4 (03:47→14:47)
[2018-09-28 03:51] LABS: INTERNATIONAL RATION (INR) 5.02; PROTHROMBIN TIME 48.8 SEC (11.4-15.4)
--- NOTE | 2018-09-28 03:52 | RADIOLOGY REPORT (SQ) ---
EXAM DESCRIPTION: XR CHEST 1 VIEW COMPLETED DATE/TME: 09/28/2018 03:19 CLINICAL HISTORY: 83 years, Female, chest pain COMPARISON: 01/06/2018 chest NUMBER OF VIEWS: 1 TECHNIQUE: Portable chest LIMITATIONS: None. FINDINGS: Cardiomegaly. Median sternotomy wires. Calcified mediastinal lymph nodes. Atheromatous change thoracic aorta. Calcified granulomata in the right upper lobe and left lung base. Suspected underlying COPD. Osteopenia. No pneumothorax IMPRESSION: Cardiomegaly with postsurgical changes. Evidence of prior granulomatous disease. Underlying COPD is suspected. copyright 2010 [employer]- All Rights Reserved
[2018-09-28] MEDS ORDERED: PANTOPRAZOLE SODIUM 40 MG VIAL IV ONE (03:56)
--- NOTE | 2018-09-28 06:49 | PDOC H&P ---
History of Present Illness Admission Date/PCP: 09/28/2018 ETHAN MCMAHON MD Patient complains of: Generalized weakness History of Present Illness: SUNITA BALLESTEROS is a 83 year old female who presented to the emergency room with a 3-4-day history of progressively worsening generalized weakness accompanied by a sudden onset of sharp anterior central chest pain radiating into her shoulder blades and down both arms about an hour prior to her ER arrival. The pain was not similar to pain she has had in the past with coronary disease or acid reflux but she tried taking 1 dose of nitroglycerin to see if it would relieve the pain anyway. After 15-20 minutes she felt that the nitroglycerin may have started to work and the pain began to get better however by that time she was already on her way to the hospital and she decided "to go ahead and get checked out". In the emergency room she was found to be pain-free but was noted to have a hemoglobin of 5.7 with an INR of 5.3. Her EKG showed no evidence of acute myocardial injury or ischemia and her initial cardiac enzymes were negative. Patient was therefore admitted to the hospital for further evaluation and treatment with transfusion of 2 units of packed red blood cells and 2 units of fresh frozen plasma ordered in the emergency room. Past Medical History Cardiac Medical History: Reports: Coronary Artery Disease, Myocardial Infarction, Hyperlipidema, Hypertension Denies: Atrial Fibrillation, Congestive Heart Failure, Peripheral Vascular Disease, Heart Murmur Pulmonary Medical History: Denies: Asthma, Bronchitis, Chronic Obstructive Pulmonary Disease (COPD), Pneumonia, Tuberculosis EENT Medical History: Reports: None Neurological Medical History: Reports: Other - Remote history of probable TIA. Denies: Hemorrhagic CVA, Ischemic CVA, Seizures Endocrine Medical History: Denies: Diabetes Mellitus Type 1, Diabetes Mellitus Type 2, Hyperthyroidism, Hypothyroidism Renal/ Medical History: Denies: Chronic Kidney Disease, Nephrolithiasis Malignancy Medical History: Reports: None GI Medical History: Reports: Gastroesophageal Reflux Disease Denies: Cirrhosis, Hepatitis Musculoskeltal Medical History: Reports: Arthritis Denies: Gout Skin Medical History: Denies: Eczema, Psoriasis Psychiatric Medical History: Denies: Alcohol Dependency, Substance Abuse, Tobacco Dependency Traumatic Medical History: Reports: None Hematology: Denies: Anemia, Bleeding Tendencies Infectious Medical History: Reports: None Past Surgical History Past Surgical History: Reports: Cardiac Catheterization, Coronary Artery Bypass Graft, Coronary Stent, Hysterectomy, Tubal Ligation Social History Information Source: Patient Lives with: Family Smoking Status: Former Smoker Frequency of Alcohol Use: None Hx Recreational Drug Use: No Drugs: None Hx Prescription Drug Abuse: No - Advance Directive Resuscitation Status: Full Code Surrogate healthcare decision maker:: Daughter Family History Family History: Hypertension, Malignancy Parental Family History Reviewed: Yes Children Family History Reviewed: No Sibling(s) Family History Reviewed.: Yes Medication/Allergy Home Medications: Cetirizine HCl [Zyrtec 10 mg Tablet] 10 mg PO DAILY 01/06/18 Cyanocobalamin (Vitamin B-12) [Vitamin B-12 1000 mcg Tablet] 1,000 mcg PO DAILY 01/06/18 Docusate Sodium [Colace 100 mg Capsule] 100 mg PO BID 01/06/18 Ferrous Sulfate [Feosol 325 mg Tablet] 325 mg PO DAILY 01/06/18 Isosorbide Mononitrate [Isosorbide Mononitrate ER] 120 mg PO DAILY 01/06/18 Nitroglycerin [Nitromist] 1 spray SL Q5MP PRN 01/06/18 Ranolazine [Ranexa 500 mg Tab.sr] 500 mg PO DAILY 01/06/18 Tramadol HCl [Ultram 50 mg Tablet] 50 mg PO Q12 #0 01/08/18 Valsartan [Diovan 160 mg Tablet] 80 mg PO DAILY 30 Days #30 tablet 01/08/18 Aspirin [Children's Aspirin] 81 mg PO DAILY 09/28/18 [place]-3 Fatty Acids/Fish Oil [Fish Oil 1,000 Mg Capsule] 1 each PO DAILY 09/28/18 Warfarin Sodium 2 mg PO DAILY 09/28/18 Allergies/Adverse Reactions: levofloxacin [From Levaquin] Allergy (Severe, Verified 09/28/18 03:41) Diarrhea Review of Systems Constitutional: PRESENT: as per HPI, weakness. ABSENT: chills, fever(s) Eyes: ABSENT: visual disturbances, other - Ocular pain Ears: ABSENT: hearing changes, other - Ear pain Nose, Mouth, and Throat: ABSENT: mouth pain, sore throat Cardiovascular: PRESENT: as per HPI, chest pain. ABSENT: dyspnea on exertion, edema, orthropnea, palpitations Respiratory: ABSENT: cough, dyspnea Gastrointestinal: ABSENT: abdominal pain, constipation, diarrhea, nausea, vomiting Genitourinary: ABSENT: dysuria, hematuria Musculoskeletal: ABSENT: back pain, joint swelling Integumentary: ABSENT: pruritus, rash Neurological: ABSENT: confusion, convulsions, memory loss, tremor(s) Psychiatric: ABSENT: anxiety, depression Endocrine: ABSENT: cold intolerance, heat intolerance Hematologic/Lymphatic: ABSENT: easy bleeding, easy bruising Physical Exam Vital Signs: Temp Pulse Resp BP Pulse Ox 97.8 F 87 15 127/59 H 95 09/28/18 03:15 09/28/18 03:15 09/28/18 03:31 09/28/18 03:31 09/28/18 03:31 Intake & Output 09/26/18 09/27/18 09/28/18 23:59 23:59 23:59 Weight 80.7 kg General appearance: PRESENT: no acute distress, cooperative Head exam: PRESENT: atraumatic, normocephalic Eye exam: PRESENT: conjunctiva pink, EOMI. ABSENT: scleral icterus Ear exam: PRESENT: normal external ear exam. ABSENT: bleeding, drainage Mouth exam: PRESENT: dry mucosa, neck supple Neck exam: ABSENT: JVD, thyromegaly, tracheal deviation Respiratory exam: PRESENT: clear to auscultation wojciech, symmetrical, unlabored Cardiovascular exam: PRESENT: RRR. ABSENT: clicks, gallop, rubs Pulses: PRESENT: normal radial pulses, normal dorsalis pedis pul Vascular exam: PRESENT: pallor. ABSENT: normal capillary refill - Slightly sluggish capillary refill at 2-3 seconds GI/Abdominal exam: PRESENT: normal bowel sounds, soft. ABSENT: tenderness Rectal exam: PRESENT: deferred Extremities exam: ABSENT: joint swelling, pedal edema Musculoskeletal exam: ABSENT: deformity, dislocation Neurological exam: PRESENT: alert, oriented to person, oriented to place, oriented to time, oriented to situation, CN II-XII grossly intact. ABSENT: motor sensory deficit Psychiatric exam: PRESENT: appropriate affect, normal mood Skin exam: PRESENT: dry, intact, pallor, warm. ABSENT: jaundice, rash, urticaria Results Laboratory Results: 09/28/18 03:16 09/28/18 03:16 09/28/18 09/28/18 03:16 03:16 WBC 8.8 RBC 2.10 L Hgb 5.7 L Hct 17.7 L MCV 84 MCH 27.1 MCHC 32.2 RDW 23.5 H Plt Count 268 Seg Neutrophils % 80.2 H Lymphocytes % 12.7 L Monocytes % 5.5 Eosinophils % 1.3 Basophils % 0.3 Absolute Neutrophils 7.0 Absolute Lymphocytes 1.1 Absolute Monocytes 0.5 Absolute Eosinophils 0.1 Absolute Basophils 0.0 Sodium 135.6 L Potassium 4.3 Chloride 103 Carbon Dioxide 27 Anion Gap 6 BUN 44 H Creatinine 1.15 Est GFR ( Amer) 55 L Est GFR (Non-Af Amer) 45 L Glucose 113 H Calcium 9.2 Total Bilirubin 0.2 AST 24 ALT 29 Alkaline Phosphatase 58 Total Protein 5.7 L Albumin 3.6 09/28/18 03:16 Troponin I 0.013 Impressions: Chest X-Ray 09/28/18 03:19 IMPRESSION: Cardiomegaly with postsurgical changes. Evidence of prior granulomatous disease. Underlying COPD is suspected. copyright 2010 [employer]- All Rights Reserved Assessment & Plan - Diagnosis (1) Acute blood loss anemia Is this a current diagnosis for this admission?: Yes Plan: The patient will receive 2 units of packed red blood cells as well as 2 units of fresh frozen plasma in an effort to establish a more normal hemostasis. Her hemoglobin will be followed on a regular basis with daily CBCs and daily INRs will also be obtained. (2) Warfarin toxicity Qualifiers: Encounter type: initial encounter Injury intent: accidental or unintentional Qualified Code(s): T45.511A - Poisoning by anticoagulants, accidental (unintentional), initial encounter Is this a current diagnosis for this admission?: Yes Plan: Patient's warfarin toxicity is initially being treated with 2 units of fresh frozen plasma. Daily INRs will be followed and with no true indication for continued use of warfarin I would expect warfarin to be discontinued completely from the patient's regiment with some other more scientifically supported stroke prevention therapy such as 81 mg of aspirin per day. (3) GI bleed Qualifiers: GI bleed type/associated pathology: unspecified gastrointestinal hemorrhage type Qualified Code(s): K92.2 - Gastrointestinal hemorrhage, unspecified Is this a current diagnosis for this admission?: Yes Plan: Patient was noted to have guaiac positive stool in the ER. Surgery has been contacted by the emergency room physician and will be willing to participate in further evaluation and/or treatment if consulted. Patient's daytime hospitalist may wish to consult gastroenterology or surgery for further evaluation. (4) Chest pain Qualifiers: Chest pain type: unspecified Qualified Code(s): R07.9 - Chest pain, unspecified Is this a current diagnosis for this admission?: Yes Plan: Serial cardiac enzymes will be obtained to evaluate for possible cardiac ischemia or injury. Further therapy and/or evaluation will be determined based upon the results of these tests. At the present time the patient is pain-free however should pain return she will be able to use nitroglycerin sublingually and morphine sulfate 2-4 mg IV every 2 hours as needed for chest pain based on a sliding scale. - Time Time Spent: 30 to 50 Minutes Critical Time spent with patient: Less than 15 minutes Medications reviewed and adjusted accordingly: Yes Anticipated discharge: Home, Home with Homehealth - Inpatient Certification Based on my medical assessment, after consideration of the patient's comorbidities, presenting symptoms, or acuity I expect that the services needed warrant INPATIENT care.: Yes I certify that my determination is in accordance with my understanding of Medicare's requirements for reasonable and necessary INPATIENT services [42 CFR 412.3e].: Yes Medical Necessity: Need Close Monitoring Due to Risk of Patient Decompensation, Need For IV Fluids, Need For Continuous Telemetry Monitoring, Risk of Complication if Not Cared For in Hospital
[2018-09-28] MEDS ORDERED: ACETAMINOPHEN 325 MG TABLET PO PRN (12:53)
[2018-09-28] MEDS ORDERED: GUAIFENESIN SYRP 200 MG/10 ML UDC PO PRN (12:53)
[2018-09-28] MEDS ORDERED: IPRATROPIUM/ALBUTEROL 0.5-2.5 MG/3 ML AMPUL NEB PRN (12:53)
--- NOTE | 2018-09-28 14:22 | PDOC CONSULTATION ---
Consultation Consult Date: 09/28/18 Attending physician:: HUSAM SARGENT Consult reason:: GI bleed History of Present Illness Admission Date/PCP: 09/28/18 04:32 ETHAN MCMAHON MD History of Present Illness: SUNITA BALLESTEROS is a 83 year old female Presents emergency department complaining of generalized weakness, failure to thrive. She was evaluated and found to be profoundly anemic with hemoglobin of 5.7. She was admitted to the hospitalist service, transfused 2 units of FFP 2 units of packed red blood cells for a pharmacologically induced coagulopathy. Surgery was consulted for endoscopy. According the patient she has been anemic for a long time. Her last blood transfusion was 62 years ago during . She was started on iron by Dr. Sweet for deficiency. She has had endoscopies in the remote past none recently. Over the summer her hemoglobin was the 8-9-1/2 range. She is been below 10 for the last 2 years. He reports generalized weakness, poor performance status, and dark stools. She denies syncope however. She has been hemodynamically stable in the emergency department. She has a long history of atrial fibrillation on Coumadin chronically, 5 mg p.o. daily. Past Medical History Cardiac Medical History: Reports: Coronary Artery Disease, Myocardial Infarction, Hyperlipidema, Hypertension Denies: Atrial Fibrillation, Congestive Heart Failure, Peripheral Vascular Disease, Heart Murmur Pulmonary Medical History: Denies: Asthma, Bronchitis, Chronic Obstructive Pulmonary Disease (COPD), Pneumonia, Tuberculosis EENT Medical History: Reports: None Neurological Medical History: Reports: Other - Remote history of probable TIA. Denies: Hemorrhagic CVA, Ischemic CVA, Seizures Endocrine Medical History: Denies: Diabetes Mellitus Type 1, Diabetes Mellitus Type 2, Hyperthyroidism, Hypothyroidism Renal/ Medical History: Denies: Chronic Kidney Disease, Nephrolithiasis Malignancy Medical History: Reports: None GI Medical History: Reports: Gastroesophageal Reflux Disease Denies: Cirrhosis, Hepatitis Musculoskeltal Medical History: Reports: Arthritis Denies: Gout Skin Medical History: Denies: Eczema, Psoriasis Psychiatric Medical History: Denies: Alcohol Dependency, Substance Abuse, Tobacco Dependency Traumatic Medical History: Reports: None Hematology: Denies: Anemia, Bleeding Tendencies Infectious Medical History: Reports: None Past Surgical History Past Surgical History: Reports: Cardiac Catheterization, Coronary Artery Bypass Graft, Coronary Stent, Hysterectomy, Tubal Ligation Denies: Appendectomy, Section, Cholecystectomy, Gastric Bypass Surgery, Herniorrhaphy, Mastectomy, Pacemaker, Tonsillectomy Social History Lives with: Family Smoking Status: Former Smoker Frequency of Alcohol Use: None Hx Recreational Drug Use: No Drugs: None Hx Prescription Drug Abuse: No - Advance Directive Resuscitation Status: Full Code Family History Family History: Hypertension, Malignancy Parental Family History Reviewed: Yes Children Family History Reviewed: Yes Sibling(s) Family History Reviewed.: Yes Medication/Allergy Home Medications: Ascorbic Acid [Vitamin C] 1,000 mg PO DAILY 09/28/18 Aspirin [Adult Low Dose Aspirin EC] 81 mg PO QPM 09/28/18 Cetirizine HCl [Zyrtec 10 mg Tablet] 10 mg PO DAILY 09/28/18 Cyclosporine 0.05% Oph Emulsio [Restasis 0.05% Oph Emulsion Pf 0.4 ml] 1 drop OU BID 09/28/18 Docusate Sodium [Colace 100 mg Capsule] 100 mg PO BID 09/28/18 Isosorbide Mononitrate [Isosorbide Mononitrate ER] 120 mg PO QPM 09/28/18 Magnesium 250 mg PO DAILY 09/28/18 Nitroglycerin [Nitrolingual] 1 spray SL Q5MP PRN 09/28/18 [place]-3 Fatty Acids/Fish Oil [Fish Oil 1,000 mg Capsule] 2 cap PO DAILY 09/28/18 Pramipexole Di-HCl [Mirapex 0.25 mg Tablet] 0.25 mg PO DAILY 09/28/18 Ranolazine [Ranexa 500 mg Tab.sr] 500 mg PO QAM 09/28/18 Tramadol HCl [Ultram 50 mg Tablet] 25 mg PO Q12 09/28/18 Ubidecarenone [Coq-10] 200 mg PO DAILY 09/28/18 Warfarin Sodium [Coumadin 2 mg Tablet] 2 mg PO QPM 09/28/18 l [place]/B Bifidum/B Longum [Moped Capsule] 1 cap PO DAILY 09/28/18 Allergies/Adverse Reactions: levofloxacin [From Levaquin] Allergy (Severe, Verified 09/28/18 03:41) Diarrhea Review of Systems Constitutional: PRESENT: weakness Eyes: ABSENT: visual disturbances Ears: ABSENT: hearing changes Cardiovascular: PRESENT: chest pain Gastrointestinal: PRESENT: other Neurological: ABSENT: abnormal gait, abnormal speech, confusion, dizziness, focal weakness, syncope Psychiatric: ABSENT: anxiety, depression, homidical ideation, suicidal ideation Physical Exam Vital Signs: Temp Pulse Resp BP Pulse Ox 97.7 F 81 19 137/102 H 100 09/28/18 12:20 09/28/18 06:49 09/28/18 13:33 09/28/18 13:33 09/28/18 12:33 Intake & Output 09/27/18 09/28/18 09/29/18 06:59 06:59 06:59 Intake Total 323 890 Balance 323 890 Weight 80.7 kg General appearance: PRESENT: mild distress, other - Looks pale Head exam: PRESENT: normocephalic Eye exam: PRESENT: EOMI Mouth exam: PRESENT: dry mucosa Neck exam: PRESENT: full ROM Respiratory exam: PRESENT: other - Well-healed sternotomy incision Cardiovascular exam: PRESENT: other - Atrial fibrillation with controlled rate Vascular exam: PRESENT: pallor GI/Abdominal exam: PRESENT: diminished bowel sounds, other - No peritoneal signs no rigidity Rectal exam: PRESENT: deferred Extremities exam: PRESENT: other - Moderate edema of the lower extremities; discolored Neurological exam: PRESENT: alert, awake, oriented to person, oriented to time, oriented to situation Results Laboratory Results: 09/28/18 03:16 09/28/18 03:16 09/28/18 09/28/18 09/28/18 03:16 03:16 03:56 WBC 8.8 RBC 2.10 L Hgb 5.7 L Hct 17.7 L MCV 84 MCH 27.1 MCHC 32.2 RDW 23.5 H Plt Count 268 Seg Neutrophils % 80.2 H Lymphocytes % 12.7 L Monocytes % 5.5 Eosinophils % 1.3 Basophils % 0.3 Absolute Neutrophils 7.0 Absolute Lymphocytes 1.1 Absolute Monocytes 0.5 Absolute Eosinophils 0.1 Absolute Basophils 0.0 Sodium 135.6 L Potassium 4.3 Chloride 103 Carbon Dioxide 27 Anion Gap 6 BUN 44 H Creatinine 1.15 Est GFR ( Amer) 55 L Est GFR (Non-Af Amer) 45 L Glucose 113 H Calcium 9.2 Total Bilirubin 0.2 AST 24 ALT 29 Alkaline Phosphatase 58 Total Protein 5.7 L Albumin 3.6 Blood Type O POSITIVE Antibody Screen NEGATIVE 09/28/18 03:16 Troponin I 0.013 Impressions: Chest X-Ray 09/28/18 03:19 IMPRESSION: Cardiomegaly with postsurgical changes. Evidence of prior granulomatous disease. Underlying COPD is suspected. copyright 2011 [employer]- All Rights Reserved Assessment & Plan - Diagnosis (1) Acute blood loss anemia Is this a current diagnosis for this admission?: Yes Plan: Impression: Chronic anemia, profound, with symptoms of generalized weakness, failure to thrive; no hemodynamic instability; now receiving blood transfusion and plasma for pharmacologic over anticoagulation Recommendations: 1. Agree with admission to medical service for ongoing blood product resuscitation. 2. We will keep patient on clear liquids today tomorrow, start bowel prep tomorrow, and plan for upper and lower endoscopy in the endoscopy suite under conscious sedation. Its alternatives to the planned procedure, and agrees to proceed. (2) Elevated INR Is this a current diagnosis for this admission?: Yes (3) GI bleed Qualifiers: GI bleed type/associated pathology: unspecified gastrointestinal hemorrhage type Is this a current diagnosis for this admission?: Yes Plan: Patient deserves upper and lower endoscopy once coagulopathy stabilizes (4) Acute on chronic renal failure Is this a current diagnosis for this admission?: Yes (5) Chronic atrial fibrillation Is this a current diagnosis for this admission?: Yes (7) GERD (gastroesophageal reflux disease) Qualifiers: Esophagitis presence: without esophagitis Qualified Code(s): K21.9 - Gastro-esophageal reflux disease without esophagitis (8) Warfarin toxicity Qualifiers: Encounter type: initial encounter Injury intent: accidental or unintentional Qualified Code(s): T45.511A - Poisoning by anticoagulants, accidental (unintentional), initial encounter Is this a current diagnosis for this admission?: Yes Plan: Plan: Hold Coumadin for now - Time Time Spent: 30 to 50 Minutes Smoking Cessation Education: over 10 minutes Medications reviewed and adjusted accordingly: Yes Anticipated discharge: Home - Inpatient Certification Based on my medical assessment, after consideration of the patient's comorb idities, presenting symptoms, or acuity I expect that the services needed warrant INPATIENT care.: Yes I certify that my determination is in accordance with my understanding of Medicare's requirements for reasonable and necessary INPATIENT services [42 CFR 412.3e].: Yes Medical Necessity: Need For Continuous Telemetry Monitoring, Other - Transfusions, upper and lower endoscopy
[2018-09-28 14:29] LABS: HEMATOCRIT 19.8 % (36.0-47.0); MEAN CORPUSCULAR HGB CONC 33.5 g/dL (32.0-36.0); MEAN CORPUSCULAR VOLUME 83 fl (80-97); PLATELET COUNT 209 10^3/uL (150-450); RED BLOOD COUNT 2.37 10^6/uL (3.72-5.28); RED CELL DISTRIBUTION WIDTH 20.7 % (11.5-14.0)
[2018-09-28 14:34] LABS: HEMOGLOBIN 6.6 g/dL (12.0-15.5)
[2018-09-28] MEDS ORDERED: FUROSEMIDE INJ/PF 20 MG/2 ML SDV IV PRN (15:00)
[2018-09-28] MEDS ORDERED: PEG 3350/NA SULF,BICARB,CL/KCL 4000 ML PO ONE (15:30)
[2018-09-28] MEDS ORDERED: (PENDING PHARMACY ID) (Isosorbide Mononitrate [Isosorbide Mononitrate Er] 120 MG) PO SCH (18:00)
[2018-09-28] MEDS ORDERED: ISOSORBIDE MONONITRATE 60 MG TAB.ER.24H PO SCH (18:00)
[2018-09-28] MEDS: DOCUSATE SODIUM 100 MG CAPSULE PO SCH (18:55)
[2018-09-28] MEDS: FAMOTIDINE INJ/PF 20 MG/2 ML SDV IV SCH (21:52)
[2018-09-28] MEDS: PRAMIPEXOLE DI-HCL 0.25 MG TABLET PO SCH (21:53)
[2018-09-28] MEDS: CYCLOSPORINE 0.05% OPH EMULSIO 0.4 ML DROPERETTE OU SCH (21:53)
[2018-09-28] MEDS: TRAMADOL HCL 50 MG TABLET PO SCH (21:53)
--- NOTE | 2018-09-29 00:15 | EKG REPORT ---
SEVERITY:- ABNORMAL ECG - SINUS RHYTHM PROBABLE LEFT ATRIAL ABNORMALITY INFERIOR INFARCT, AGE INDETERMINATE : Confirmed by: Nikki Mills 29-Sep-2018 00:14:53
[2018-09-29 02:01] LABS: ABSOLUTE EOSINOPHILS # (AUTO) 0.2 10^3/uL (0.0-0.6); ABSOLUTE LYMPHOCYTES (AUTO) 1.2 10^3/uL (0.5-4.7); ABSOLUTE MONOCYTES (AUTO) 0.6 10^3/uL (0.1-1.4); ABSOLUTE NEUT (AUTO) 4.8 10^3/uL (1.7-8.2); BASOPHILS % (AUTO) 0.4 % (0-2); EOSINOPHILS % (AUTO) 2.3 % (0-6); HEMATOCRIT 22.9 % (36.0-47.0); LYMPHOCYTES % (AUTO) 18.2 % (13-45); MEAN CORPUSCULAR HEMOGLOBIN 28.4 pg (27.0-33.4); MEAN CORPUSCULAR HGB CONC 34.3 g/dL (32.0-36.0); MEAN CORPUSCULAR VOLUME 83 fl (80-97); MONOCYTES % (AUTO) 8.3 % (3-13); PLATELET COUNT 181 10^3/uL (150-450); RED BLOOD COUNT 2.77 10^6/uL (3.72-5.28); RED CELL DISTRIBUTION WIDTH 18.6 % (11.5-14.0); SEGMENTED NEUTROPHILS % (AUTO) 70.8 % (42-78); TOTAL CELLS COUNTED % (AUTO) 100 %; WHITE BLOOD COUNT 6.7 10^3/uL (4.0-10.5)
[2018-09-29 02:03] LABS: HEMOGLOBIN 7.9 g/dL (12.0-15.5)
[2018-09-29 07:40] LABS: ABSOLUTE EOSINOPHILS # (AUTO) 0.2 10^3/uL (0.0-0.6); ABSOLUTE MONOCYTES (AUTO) 0.5 10^3/uL (0.1-1.4); ABSOLUTE NEUT (AUTO) 4.6 10^3/uL (1.7-8.2); BASOPHILS % (AUTO) 0.4 % (0-2); EOSINOPHILS % (AUTO) 2.7 % (0-6); HEMATOCRIT 24.8 % (36.0-47.0); HEMOGLOBIN 8.6 g/dL (12.0-15.5); LYMPHOCYTES % (AUTO) 15.5 % (13-45); MEAN CORPUSCULAR HEMOGLOBIN 28.5 pg (27.0-33.4); MEAN CORPUSCULAR HGB CONC 34.6 g/dL (32.0-36.0); MEAN CORPUSCULAR VOLUME 82 fl (80-97); MONOCYTES % (AUTO) 7.9 % (3-13); PLATELET COUNT 193 10^3/uL (150-450); RED BLOOD COUNT 3.01 10^6/uL (3.72-5.28); RED CELL DISTRIBUTION WIDTH 18.6 % (11.5-14.0); SEGMENTED NEUTROPHILS % (AUTO) 73.5 % (42-78); TOTAL CELLS COUNTED % (AUTO) 100 %; WHITE BLOOD COUNT 6.3 10^3/uL (4.0-10.5)
[2018-09-29 07:50] LABS: INTERNATIONAL RATION (INR) 2.35; PROTHROMBIN TIME 26.8 SEC (11.4-15.4)
[2018-09-29 07:58] LABS: BLOOD UREA NITROGEN 33 mg/dL (7-20); CALCIUM 8.4 mg/dL (8.4-10.2); GLUCOSE 91 mg/dL (75-110); POTASSIUM 3.8 mmol/L (3.6-5.0)
--- NOTE | 2018-09-29 08:01 | PDOC PROGRESS REPORT ---
Subjective Progress Note for:: 09/29/18 Reason For Visit: COAGULOPATHY,GI BLEED,ACUTE BLOOD LOSS ANEMIA Physical Exam Vital Signs: Temp Pulse Resp BP Pulse Ox 98.2 F 60 20 129/54 H 93 09/29/18 03:48 09/29/18 07:00 09/29/18 03:48 09/29/18 03:48 09/29/18 03:48 Intake & Output 09/28/18 09/29/18 09/30/18 06:59 06:59 06:59 Intake Total 323 2054 Output Total 1600 Balance 323 454 Weight 80.7 kg 83.8 kg General appearance: PRESENT: no acute distress Head exam: PRESENT: atraumatic Eye exam: PRESENT: conjunctiva pink GI/Abdominal exam: PRESENT: soft Results Laboratory Results: 09/29/18 07:28 09/28/18 09/28/18 09/29/18 03:56 14:10 01:42 WBC 7.0 6.7 RBC 2.37 L 2.77 L Hgb 6.6 L 7.9 L Hct 19.8 L 22.9 L MCV 83 83 MCH 28.0 28.4 MCHC 33.5 34.3 RDW 20.7 H 18.6 H Plt Count 209 181 Seg Neutrophils % 70.8 Lymphocytes % 18.2 Monocytes % 8.3 Eosinophils % 2.3 Basophils % 0.4 Absolute Neutrophils 4.8 Absolute Lymphocytes 1.2 Absolute Monocytes 0.6 Absolute Eosinophils 0.2 Absolute Basophils 0.0 Blood Type O POSITIVE Antibody Screen NEGATIVE 09/29/18 07:28 WBC 6.3 RBC 3.01 L Hgb 8.6 L Hct 24.8 L MCV 82 MCH 28.5 MCHC 34.6 RDW 18.6 H Plt Count 193 Seg Neutrophils % 73.5 Lymphocytes % 15.5 Monocytes % 7.9 Eosinophils % 2.7 Basophils % 0.4 Absolute Neutrophils 4.6 Absolute Lymphocytes 1.0 Absolute Monocytes 0.5 Absolute Eosinophils 0.2 Absolute Basophils 0.0 Blood Type Antibody Screen 09/28/18 03:16 Troponin I 0.013 Impressions: Chest X-Ray 09/28/18 03:19 IMPRESSION: Cardiomegaly with postsurgical changes. Evidence of prior granulomatous disease. Underlying COPD is suspected. copyright 2010 [employer]- All Rights Reserved Status: Image reviewed by - h/h with appropriate response after txn yesterday Assessment & Plan - Inpatient Certification Medical Necessity: Failure to Improve With Outpatient Therapy, Significant Comor bidiites Make Outpatient Treatment Too Risky, Need Close Monitoring Due to Risk of Patient Decompensation, Need for Surgery - pt scheduled for colonoscopy in am, bowel prep today monitoring inr - Plan Summary Plan Summary: colonoscopy in am bowel prep today.
[2018-09-29 08:04] LABS: ANION GAP 7 (5-19); CARBON DIOXIDE 30 mmol/L (22-30); CHLORIDE 104 mmol/L (98-107)
[2018-09-29] MEDS ORDERED: PRAMIPEXOLE DI-HCL 0.25 MG TABLET PO SCH (10:00)
[2018-09-29] MEDS ORDERED: (PENDING PHARMACY ID) (Omega-3 Fatty Acids/Fish Oil [Fish Oil 1,000 Mg Capsule] 2 CAP) PO SCH (10:00)
[2018-09-29] MEDS ORDERED: PEG 3350/NA SULF,BICARB,CL/KCL 4000 ML PO ONE (10:00)
[2018-09-29] MEDS: TRAMADOL HCL 50 MG TABLET PO SCH ×2 (10:03→22:25)
[2018-09-29] MEDS: ASCORBIC ACID 500 MG TABLET PO SCH (10:03)
[2018-09-29] MEDS: OMEGA-3 ACID ETHYL ESTERS 1 GM CAPSULE PO SCH (10:03)
[2018-09-29] MEDS: FAMOTIDINE INJ/PF 20 MG/2 ML SDV IV SCH ×2 (10:04→22:26)
[2018-09-29] MEDS: CYCLOSPORINE 0.05% OPH EMULSIO 0.4 ML DROPERETTE OU SCH ×2 (10:04→18:40)
[2018-09-29] MEDS: CETIRIZINE 10 MG TABLET PO SCH (10:04)
[2018-09-29] MEDS: DOCUSATE SODIUM 100 MG CAPSULE PO SCH ×2 (10:06→17:57)
[2018-09-29] MEDS ORDERED: ONDANSETRON HCL INJ/PF 4 MG/2 ML SDV IV PRN (15:20)
--- NOTE | 2018-09-29 15:30 | PDOC PROGRESS REPORT ---
Subjective Progress Note for:: 09/29/18 Subjective:: Patient admitted with acute blood loss anemia likely secondary to GI bleed. She had received a total of 4 units of packed red blood cells. She seems to be doing pretty well this morning when I saw her. She had no complaints and denied any bloody stool, nausea vomiting or abdominal pain. I had an extensive discussion with type Coumadin use and she was interested in switching to Eliquis if possible. 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 Appears a few hours later patient was found to be briefly hypotensive and bradycardic. She may have had a vasovagal effect as she had been on the commode. It appears she had some brown stool but no bright red bleeding. Acc ording to the nurse she was transiently confused but her symptoms resolved almost immediately. A stat H&H is currently pending. Reason For Visit: COAGULOPATHY,GI BLEED,ACUTE BLOOD LOSS ANEMIA Physical Exam Vital Signs: Temp Pulse Resp BP Pulse Ox 97.3 F 68 16 178/63 H 99 09/29/18 11:49 09/29/18 11:49 09/29/18 11:49 09/29/18 11:49 09/29/18 11:49 Intake & Output 09/28/18 09/29/18 09/30/18 06:59 06:59 06:59 Intake Total 323 2054 Output Total 1600 Balance 323 454 Weight 80.7 kg 83.8 kg General appearance: PRESENT: no acute distress, well-developed, well-nourished Head exam: PRESENT: atraumatic, normocephalic Ear exam: PRESENT: normal external ear exam Neck exam: ABSENT: carotid bruit, JVD, lymphadenopathy, thyromegaly Respiratory exam: PRESENT: clear to auscultation wojciech. ABSENT: rales, rhonchi, wheezes Cardiovascular exam: PRESENT: RRR, systolic murmur. ABSENT: diastolic murmur, rubs Pulses: PRESENT: normal dorsalis pedis pul GI/Abdominal exam: PRESENT: normal bowel sounds, soft. ABSENT: distended, guarding, mass, organolmegaly, rebound, tenderness Rectal exam: PRESENT: black stool, hemorrhoids Extremities exam: PRESENT: full ROM. ABSENT: calf tenderness, clubbing, pedal edema Musculoskeletal exam: PRESENT: ambulatory, full ROM Neurological exam: PRESENT: alert, awake, oriented to person, oriented to place, oriented to time, oriented to situation, CN II-XII grossly intact. ABSENT: motor sensory deficit Psychiatric exam: PRESENT: appropriate affect, normal mood. ABSENT: homicidal ideation, suicidal ideation Results Laboratory Results: 09/29/18 07:28 09/28/18 09/29/18 09/29/18 03:56 01:42 07:28 WBC 6.7 6.3 RBC 2.77 L 3.01 L Hgb 7.9 L 8.6 L Hct 22.9 L 24.8 L MCV 83 82 MCH 28.4 28.5 MCHC 34.3 34.6 RDW 18.6 H 18.6 H Plt Count 181 193 Seg Neutrophils % 70.8 73.5 Lymphocytes % 18.2 15.5 Monocytes % 8.3 7.9 Eosinophils % 2.3 2.7 Basophils % 0.4 0.4 Absolute Neutrophils 4.8 4.6 Absolute Lymphocytes 1.2 1.0 Absolute Monocytes 0.6 0.5 Absolute Eosinophils 0.2 0.2 Absolute Basophils 0.0 0.0 Sodium Potassium Chloride Carbon Dioxide Anion Gap BUN Creatinine Est GFR ( Amer) Est GFR (Non-Af Amer) Glucose Calcium Blood Type O POSITIVE Antibody Screen NEGATIVE 09/29/18 07:28 WBC RBC Hgb Hct MCV MCH MCHC RDW Plt Count Seg Neutrophils % Lymphocytes % Monocytes % Eosinophils % Basophils % Absolute Neutrophils Absolute Lymphocytes Absolute Monocytes Absolute Eosinophils Absolute Basophils Sodium 141.0 Potassium 3.8 Chloride 104 Carbon Dioxide 30 Anion Gap 7 BUN 33 H Creatinine 1.09 Est GFR ( Amer) 58 L Est GFR (Non-Af Amer) 48 L Glucose 91 Calcium 8.4 Blood Type Antibody Screen 09/28/18 03:16 Troponin I 0.013 Impressions: Chest X-Ray 09/28/18 03:19 IMPRESSION: Cardiomegaly with postsurgical changes. Evidence of prior granulomatous disease. Underlying COPD is suspected. copyright 2010 [employer]- All Rights Reserved Assessment & Plan - Diagnosis (1) Acute blood loss anemia Is this a current diagnosis for this admission?: Yes (2) Chest pain Qualifiers: Chest pain type: unspecified Qualified Code(s): R07.9 - Chest pain, unspecified Is this a current diagnosis for this admission?: Yes Plan: likely secondary to anemia patient is currently chest pain-free (3) Elevated INR Is this a current diagnosis for this admission?: Yes Plan: Coagulopathy due to excess warfarin. She is status post 2 units of FFP. INR is now down to 2.35 (4) GI bleed Qualifiers: GI bleed type/associated pathology: unspecified gastrointestinal hemorrhage type Qualified Code(s): K92.2 - Gastrointestinal hemorrhage, unspecified Is this a current diagnosis for this admission?: Yes Plan: Colonoscopy scheduled for tomorrow (5) Chronic atrial fibrillation Is this a current diagnosis for this admission?: Yes (6) Coronary artery disease Qualifiers: Coronary Disease-Associated Artery/Lesion type: [place] artery [place] vs. transplanted heart: [place] heart Associated angina: without angina Qualified Code(s): I25.10 - Atherosclerotic heart disease of [place] coronary artery without angina pectoris Is this a current diagnosis for this admission?: Yes Plan: Chronic. We will decrease isosorbide due to her hypotension (7) Syncope and collapse Is this a current diagnosis for this admission?: Yes Plan: Likely secondary to vasovagal effect - Time Time Spent with patient: 15-24 minutes Medications reviewed and adjusted accordingly: Yes Anticipated discharge: Home Within: within 72 hours - Inpatient Certification Based on my medical assessment, after consideration of the patient's comorbidities, presenting symptoms, or acuity I expect that the services needed warrant INPATIENT care.: Yes Medical Necessity: Need For Continuous Telemetry Monitoring, Risk of Complication if Not Cared For in Hospital, Risk of Diagnosis Which Will Require Inpatient Eval/Care/Monitoring
[2018-09-29 15:34] LABS: HEMATOCRIT 29.8 % (36.0-47.0); MEAN CORPUSCULAR HEMOGLOBIN 28.2 pg (27.0-33.4); MEAN CORPUSCULAR HGB CONC 33.7 g/dL (32.0-36.0); MEAN CORPUSCULAR VOLUME 84 fl (80-97); PLATELET COUNT 222 10^3/uL (150-450); RED BLOOD COUNT 3.57 10^6/uL (3.72-5.28)
[2018-09-29 15:38] LABS: WHITE BLOOD COUNT 17.1 10^3/uL (4.0-10.5)
[2018-09-29 15:56] LABS: ABSOLUTE LYMPHOCYTES# (MANUAL) 0.7 10^3/uL (0.5-4.7); ABSOLUTE MONOCYTES # (MANUAL) 0.5 10^3/uL (0.1-1.4); ABSOLUTE NEUTROPHILS# (MANUAL) 15.9 10^3/uL (1.7-8.2); BASOPHILS % (MANUAL) 0 % (0-2); EOSINOPHILS % (MANUAL) 0 % (0-6); LYMPHOCYTES % (MANUAL) 4 % (13-45); MONOCYTES % (MANUAL) 3 % (3-13); SEGMENTED NEUTROPHILS % (MAN) 93 % (42-78); TOTAL CELLS COUNTED 100
[2018-09-29 15:57] LABS: ANISOCYTOSIS 2+; PLATELET COMMENT ADEQUATE; POIKILOCYTOSIS SLIGHT; POLYCHROMASIA SLIGHT; TOXIC GRANULATION SLIGHT
[2018-09-29] MEDS ORDERED: ISOSORBIDE MONONITRATE 60 MG TAB.ER.24H PO SCH (18:00)
[2018-09-29 18:34] LABS: ANION GAP 8 (5-19); BLOOD UREA NITROGEN 29 mg/dL (7-20); CALCIUM 8.5 mg/dL (8.4-10.2); CARBON DIOXIDE 28 mmol/L (22-30); CHLORIDE 103 mmol/L (98-107); GLUCOSE 154 mg/dL (75-110); POTASSIUM 3.4 mmol/L (3.6-5.0); SODIUM 138.8 mmol/L (137-145)
[2018-09-29] MEDS: ISOSORBIDE MONONITRATE 60 MG TAB.ER.24H PO SCH (18:40)
[2018-09-29] MEDS ORDERED: POTASSIUM CHLORIDE 10 MEQ CAPSULE.ER PO ONE ×2 (18:53→22:30)
[2018-09-29 19:31] LABS: HEMATOCRIT 26.6 % (36.0-47.0); HEMOGLOBIN 8.9 g/dL (12.0-15.5); MEAN CORPUSCULAR HGB CONC 33.4 g/dL (32.0-36.0); MEAN CORPUSCULAR VOLUME 84 fl (80-97); PLATELET COUNT 197 10^3/uL (150-450); RED BLOOD COUNT 3.18 10^6/uL (3.72-5.28); WHITE BLOOD COUNT 14.9 10^3/uL (4.0-10.5)
[2018-09-29 19:37] LABS: ANION GAP 8 (5-19); BLOOD UREA NITROGEN 29 mg/dL (7-20); CALCIUM 8.3 mg/dL (8.4-10.2); CARBON DIOXIDE 28 mmol/L (22-30); CHLORIDE 103 mmol/L (98-107); GLUCOSE 143 mg/dL (75-110); POTASSIUM 3.4 mmol/L (3.6-5.0); SODIUM 138.8 mmol/L (137-145)
[2018-09-29 19:47] LABS: ABSOLUTE LYMPHOCYTES# (MANUAL) 0.3 10^3/uL (0.5-4.7); ABSOLUTE MONOCYTES # (MANUAL) 0.7 10^3/uL (0.1-1.4); ABSOLUTE NEUTROPHILS# (MANUAL) 13.9 10^3/uL (1.7-8.2); ANISOCYTOSIS 2+; BASOPHILS % (MANUAL) 0 % (0-2); EOSINOPHILS % (MANUAL) 0 % (0-6); LYMPHOCYTES % (MANUAL) 2 % (13-45); MONOCYTES % (MANUAL) 5 % (3-13); PLATELET COMMENT ADEQUATE; POIKILOCYTOSIS SLIGHT; SEGMENTED NEUTROPHILS % (MAN) 93 % (42-78); TOTAL CELLS COUNTED 100; TOXIC GRANULATION SLIGHT
[2018-09-29] MEDS: PRAMIPEXOLE DI-HCL 0.25 MG TABLET PO SCH (22:26)
[2018-09-30 05:36] LABS: INTERNATIONAL RATION (INR) 3.04; PROTHROMBIN TIME 32.9 SEC (11.4-15.4)
[2018-09-30 07:49] LABS: MEAN CORPUSCULAR HEMOGLOBIN 28.1 pg (27.0-33.4); MEAN CORPUSCULAR HGB CONC 33.8 g/dL (32.0-36.0); MEAN CORPUSCULAR VOLUME 83 fl (80-97); PLATELET COUNT 173 10^3/uL (150-450); RED BLOOD COUNT 2.76 10^6/uL (3.72-5.28); RED CELL DISTRIBUTION WIDTH 18.8 % (11.5-14.0); WHITE BLOOD COUNT 11.4 10^3/uL (4.0-10.5)
[2018-09-30 07:50] LABS: ANION GAP 6 (5-19); BLOOD UREA NITROGEN 25 mg/dL (7-20); CALCIUM 7.9 mg/dL (8.4-10.2); CARBON DIOXIDE 29 mmol/L (22-30); CHLORIDE 105 mmol/L (98-107); GLUCOSE 94 mg/dL (75-110); POTASSIUM 3.8 mmol/L (3.6-5.0); SODIUM 140.1 mmol/L (137-145)
[2018-09-30 07:52] LABS: HEMOGLOBIN 7.8 g/dL (12.0-15.5)
[2018-09-30] MEDS ORDERED: PROPOFOL INJ 200 MG/20 ML VIAL IV ONE (11:17)
[2018-09-30] MEDS ORDERED: ONDANSETRON HCL INJ/PF 4 MG/2 ML SDV IV PRN (12:02)
--- NOTE | 2018-09-30 12:43 | Operative Report ---
Operative Report DATE OF SURGERY: 09/30/18 PREOPERATIVE DIAGNOSIS: 1. Chronic blood loss anemia. 2. Gastrointestinal bl eed POSTOPERATIVE DIAGNOSIS: Same with. 1. Mild gastritis. 2. Colonic obstruction 45 cm from anal verge. 3. External hemorrhoids. 4. 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 Esophagogastroduodenoscopy with biopsies of the gastric antrum. 2. Incomplete colonoscopy to 45 cm from the anal verge( sigmoid colon) SURGEON: JENNA TAO ANESTHESIA: LMAC COMPLICATIONS: None ESTIMATED BLOOD LOSS: Scant INTRAOPERATIVE FINDINGS: See below PROCEDURE: Patient was taken to the preop holding area to the main operating room where LMAC anesthesia was induced. She was placed in a semirecumbent position , head tilted to the left head in neutral position and oral mouthpiece inserted. Surgical plan ands surgical timeout were conducted. The flexible upper endoscope was advanced through the oropharynx, down the hypopharynx into the esophagus through the stomach into the duodenum. This is well tolerated by the patient. There was no evidence of tumor stricture bleeding polyp or any significant pathology. The first and second portion of the duodenum were normal. Scope was brought back to the pylorus which was unremarkable. There was mild gastritis as evidenced by a small punctate clots of blood, but unlikely to be a significant source for GI bleeding. A random biopsy of the gastric antrum was removed with the cold forceps device and sent for MANAV testing. Bleeding was minimal. Scope was retroflexed in the stomach and a good look at the GE junction was noted. There was a hiatal hernia. Photos were taken. The scope was brought back to the GE junction in a retrograde fashion. No significant pathology at the level of the LES. The remainder the esophagus was grossly unremarkable. The scope was withdrawn to the oropharynx. The patient tolerated procedure well. Instrumentation was switched up, the patient was placed in the extreme left lateral decubitus position knees to chest. Rectal exam revealed a completely patulous anus. I could feel the external anal sphincter which deformed the cord but there was no tone at all. I could admit 3 even 4 fingers into her anal canal. There was some murky dark green stool and some stool balls in the anal rectal canal. I advanced the adult colonoscope up the anorectal canal through the sigmoid colon to approximately 45 cm from anal verge. I was then not able to advance the scope any further. There appeared to be 2 passages both blind- ending and consistent with a either complete external obstruction or twisting or folding of the colon. 1 of the blind-ending pouches could have been a large diverticulum. There was no visible evidence of tumor or any sort of mucosal change. We observe this area for quite a while and I never saw any stool liquid are otherwise coming down from the proximal direction. We repositioned the patient multiple times, and ensured the patient was adequately sedated and that we had adequate visualization of the lumen which we did. Despite all these reassurances, I could not advance the scope beyond this point. We therefore aborted the procedure. The scope was withdrawn to the patient's rectosigmoid junction and in the anal canal. Hemorrhoids identified. A few rare diverticulum as well. Otherwise though no significant pathology. Patient tolerated the procedure well and was taken to the recovery room in stable condition Impression: Likely complete colonic obstruction due to mass or extrinsic process; incomplete colonoscopy recommendations: 1. Keep n.p.o. 2. We will obtain a CT scan of the abdomen pelvis with IV and rectal contrast to further delineate pathoanatomy. 3. I discussed the above with patient's significant other.
[2018-09-30] MEDS: CYCLOSPORINE 0.05% OPH EMULSIO 0.4 ML DROPERETTE OU SCH ×2 (13:27→17:09)
--- NOTE | 2018-09-30 14:38 | PDOC PROGRESS REPORT ---
Subjective Progress Note for:: 09/30/18 Subjective:: Patient admitted with acute blood loss anemia likely secondary to GI bleed. She had received a total of 4 units of packed red blood cells. Patient had a colonoscopy done today. The impression is a likely complete colonic obstruction due to mass or extrinsic process. A CT scan of the abdomen pelvis is being planned for further evaluation. Repeat H&H will also be done as patient's hemoglobin dropped overnight. Reason For Visit: COAGULOPATHY,GI BLEED,ACUTE BLOOD LOSS ANEMIA Physical Exam Vital Signs: Temp Pulse Resp BP Pulse Ox 97.5 F 69 17 132/78 H 98 09/30/18 12:55 09/30/18 14:00 09/30/18 12:55 09/30/18 12:55 09/30/18 12:55 Intake & Output 09/29/18 09/30/18 10/01/18 06:59 06:59 06:59 Intake Total 2054 3389 750 Output Total 1600 0 Balance 454 3389 750 Weight 83.8 kg 81.9 kg General appearance: PRESENT: no acute distress, well-developed, well-nourished Head exam: PRESENT: atraumatic, normocephalic Eye exam: PRESENT: conjunctiva pink, EOMI, PERRLA. ABSENT: scleral icterus Ear exam: PRESENT: normal external ear exam Mouth exam: PRESENT: moist, tongue midline Neck exam: ABSENT: carotid bruit, JVD, lymphadenopathy, thyromegaly Respiratory exam: PRESENT: clear to auscultation wojciech. ABSENT: rales, rhonchi, wheezes Cardiovascular exam: PRESENT: RRR, systolic murmur - 3/6. ABSENT: diastolic murmur, rubs Pulses: PRESENT: normal dorsalis pedis pul Vascular exam: PRESENT: normal capillary refill GI/Abdominal exam: PRESENT: normal bowel sounds, soft. ABSENT: distended, guarding, mass, organolmegaly, rebound, tenderness Rectal exam: PRESENT: deferred Extremities exam: PRESENT: full ROM. ABSENT: calf tenderness, clubbing, pedal edema Neurological exam: PRESENT: alert, awake, oriented to person, oriented to place, oriented to time, oriented to situation, CN II-XII grossly intact. ABSENT: motor sensory deficit Psychiatric exam: PRESENT: appropriate affect, normal mood. ABSENT: homicidal ideation, suicidal ideation Skin exam: PRESENT: dry, intact, warm. ABSENT: cyanosis, rash Results Laboratory Results: 09/30/18 04:42 09/30/18 04:42 09/29/18 09/29/18 09/29/18 15:13 18:05 19:12 WBC 17.1 H D 14.9 H RBC 3.57 L 3.18 L Hgb 10.0 L 8.9 L Hct 29.8 L 26.6 L MCV 84 84 MCH 28.2 28.0 MCHC 33.7 33.4 RDW 19.0 H 19.0 H Plt Count 222 197 Seg Neutrophils % Not Reportable Not Reportable Lymphocytes % Not Reportable Not Reportable Monocytes % Not Reportable Not Reportable Eosinophils % Not Reportable Not Reportable Basophils % Not Reportable Not Reportable Absolute Neutrophils Not Reportable Not Reportable Absolute Lymphocytes Not Reportable Not Reportable Absolute Monocytes Not Reportable Not Reportable Absolute Eosinophils Not Reportable Not Reportable Absolute Basophils Not Reportable Not Reportable Sodium 138.8 Potassium 3.4 L Chloride 103 Carbon Dioxide 28 Anion Gap 8 BUN 29 H Creatinine 1.00 Est GFR ( Amer) > 60 Est GFR (Non-Af Amer) 53 L Glucose 154 H Calcium 8.5 Magnesium 1.8 09/29/18 09/30/18 09/30/18 19:12 04:42 04:42 WBC 11.4 H RBC 2.76 L Hgb 7.8 L Hct 23.0 L MCV 83 MCH 28.1 MCHC 33.8 RDW 18.8 H Plt Count 173 Seg Neutrophils % Lymphocytes % Monocytes % Eosinophils % Basophils % Absolute Neutrophils Absolute Lymphocytes Absolute Monocytes Absolute Eosinophils Absolute Basophils Sodium 138.8 140.1 Potassium 3.4 L 3.8 Chloride 103 105 Carbon Dioxide 28 29 Anion Gap 8 6 BUN 29 H 25 H Creatinine 0.96 1.09 Est GFR ( Amer) > 60 58 L Est GFR (Non-Af Amer) 56 L 48 L Glucose 143 H 94 Calcium 8.3 L 7.9 L Magnesium 09/28/18 03:16 Troponin I 0.013 Impressions: Chest X-Ray 09/28/18 03:19 IMPRESSION: Cardiomegaly with postsurgical changes. Evidence of prior granulomatous disease. Underlying COPD is suspected. copyright 2011 [employer]- All Rights Reserved Assessment & Plan - Diagnosis (1) Acute blood loss anemia Is this a current diagnosis for this admission?: Yes (2) Chest pain Qualifiers: Chest pain type: unspecified Qualified Code(s): R07.9 - Chest pain, unsp ecified Is this a current diagnosis for this admission?: Yes (3) Elevated INR Is this a current diagnosis for this admission?: Yes (4) GI bleed Qualifiers: GI bleed type/associated pathology: unspecified gastrointestinal hemorrhage type Qualified Code(s): K92.2 - Gastrointestinal hemorrhage, unspecified Is this a current diagnosis for this admission?: Yes (5) Chronic atrial fibrillation Is this a current diagnosis for this admission?: Yes (6) Coronary artery disease Qualifiers: Coronary Disease-Associated Artery/Lesion type: [place] artery [place] vs. transplanted heart: [place] heart Associated angina: without angina Qualified Code(s): I25.10 - Atherosclerotic heart disease of [place] coronary artery without angina pectoris Is this a current diagnosis for this admission?: Yes (7) Syncope and collapse Is this a current diagnosis for this admission?: Yes - Time Time Spent with patient: 15-24 minutes - Inpatient Certification Based on my medical assessment, after consideration of the patient's comorbidities, presenting symptoms, or acuity I expect that the services needed warrant INPATIENT care.: Yes Medical Necessity: Need Close Monitoring Due to Risk of Patient Decompensation, Risk of Complication if Not Cared For in Hospital
--- NOTE | 2018-09-30 14:48 | RADIOLOGY REPORT (SQ) ---
EXAM DESCRIPTION: CT ABD/PELVIS WITH IV ORAL COMPLETED DATE/TIME: 09/30/2018 2:19 pm REASON FOR STUDY: Rule out sigmoid colon obstruction COMPARISON: 04/14/2017 TECHNIQUE: CT scan of the abdomen and pelvis performed using helical scanning technique with dynamic intravenous contrast injection. No oral contrast. Images reviewed with lung, soft tissue, and bone windows. Reconstructed coronal and sagittal MPR images reviewed. Delayed images for evaluation of the urinary system also acquired. All images stored on PACS. All CT scanners at this facility use dose modulation, iterative reconstruction, and/or weight based d osing when appropriate to reduce radiation dose to as low as reasonably achievable (ALARA). [facility]: Dose Right [facility]: CareDose [facility]: Dose Right [facility]: Teradose 4D [facility]: Nu-Pulse CONTRAST TYPE AND DOSE: contrast/concentration: Isovue 350.00 mg/ml; Total Contrast Delivered: 94.0 ml; Total Saline Delivered: 71.0 ml Additional oral Gastrografin enteric contrast was administered. RENAL FUNCTION: GFR > 60. RADIATION DOSE: CT Rad equipment meets quality standard of care and radiation dose reduction techniq ues were employed. CTDIvol: NaN - NaN mGy. DLP: 0 mGy-cm.. LIMITATIONS: None. FINDINGS: LOWER CHEST: Coronary artery calcifications. LIVER: Normal size. No masses. No dilated ducts. SPLEEN: Normal size. No focal lesions. Extensive punctuate calcification, consistent with prior gran ulomatous infection. PANCREAS: There is an ill-defined fluid attenuation lesion of the pancreatic head measuring 1.5 cm (s eries 2, image 33). No significant calcifications. No adjacent inflammation or peripancreatic fluid c ollections. Pancreatic duct not dilated. GALLBLADDER: No identified stones by CT criteria. No inflammatory changes to suggest cholecystitis. ADRENAL GLANDS: No significant masses or asymmetry. RIGHT KIDNEY AND URETER: No solid masses. No significant calcifications. No hydronephrosis or hyd roureter. LEFT KIDNEY AND URETER: No solid masses. No significant calcifications. No hydronephrosis or hydr oureter. AORTA AND VESSELS: No aneurysm. No dissection. Renal arteries, SMA, celiac without stenosis. Calcifi c atherosclerosis. RETROPERITONEUM: No retroperitoneal adenopathy, hemorrhage or masses. BOWEL AND PERITONEAL CAVITY: The colon is contrast opacified to the rectum, containing a rectal tube. No evidence of proximal obstipation. APPENDIX: Normal. PELVIS: No mass. No free fluid. Normal bladder. Status post hysterectomy. ABDOMINAL WALL: No masses. No hernias. BONES: No significant or acute findings. OTHER: No other significant finding. IMPRESSION: 1. The colon is contrast opacified to the rectum, containing a rectal tube. No evidence of proximal obstipation. 2. 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 This find ing was not well appreciated on prior noncontrast CT dated 04/14/2017. Recommend initial follow-up CT or MRI in 2 years to establish stability if clinically appropriate per ACR cystic pancreatic lesion follow-up criteria. TECHNICAL DOCUMENTATION: JOB ID: [id number] Quality ID # [id number]: Final reports with documentation of one or more dose reduction techniques (e.g., Au tomated exposure control, adjustment of the mA and/or kV according to patient size, use of iterative reconstruction technique) 2010 [employer]- All Rights Reserved Reading location - IP/workstation name: [email or web address]
[2018-09-30] MEDS: ASCORBIC ACID 500 MG TABLET PO SCH (16:04)
[2018-09-30] MEDS: DOCUSATE SODIUM 100 MG CAPSULE PO SCH ×2 (16:04→17:04)
[2018-09-30] MEDS: FAMOTIDINE INJ/PF 20 MG/2 ML SDV IV SCH ×2 (16:04→22:12)
[2018-09-30] MEDS: OMEGA-3 ACID ETHYL ESTERS 1 GM CAPSULE PO SCH (16:04)
[2018-09-30] MEDS: TRAMADOL HCL 50 MG TABLET PO SCH ×2 (16:04→22:12)
[2018-09-30] MEDS: CETIRIZINE 10 MG TABLET PO SCH (16:04)
[2018-09-30 16:45] LABS: HEMATOCRIT 26.4 % (36.0-47.0); HEMOGLOBIN 9.1 g/dL (12.0-15.5); MEAN CORPUSCULAR HEMOGLOBIN 28.8 pg (27.0-33.4); MEAN CORPUSCULAR HGB CONC 34.4 g/dL (32.0-36.0); MEAN CORPUSCULAR VOLUME 84 fl (80-97); PLATELET COUNT 203 10^3/uL (150-450); RED BLOOD COUNT 3.15 10^6/uL (3.72-5.28); RED CELL DISTRIBUTION WIDTH 19.4 % (11.5-14.0); WHITE BLOOD COUNT 9.7 10^3/uL (4.0-10.5)
[2018-09-30] MEDS: ISOSORBIDE MONONITRATE 60 MG TAB.ER.24H PO SCH (17:09)
[2018-09-30] MEDS: PRAMIPEXOLE DI-HCL 0.25 MG TABLET PO SCH (22:12)
[2018-10-01] MEDS ORDERED: CALCIUM CARBONATE 500 MG TAB.CHEW PO PRN (04:18)
[2018-10-01 05:13] LABS: HEMATOCRIT 22.4 % (36.0-47.0); MEAN CORPUSCULAR HEMOGLOBIN 28.9 pg (27.0-33.4); MEAN CORPUSCULAR HGB CONC 34.3 g/dL (32.0-36.0); MEAN CORPUSCULAR VOLUME 84 fl (80-97); PLATELET COUNT 161 10^3/uL (150-450); RED BLOOD COUNT 2.66 10^6/uL (3.72-5.28); RED CELL DISTRIBUTION WIDTH 19.6 % (11.5-14.0)
[2018-10-01] MEDS ORDERED: PANTOPRAZOLE SODIUM 40 MG VIAL IV ONE (05:15)
[2018-10-01 05:19] LABS: HEMOGLOBIN 7.7 g/dL (12.0-15.5)
--- NOTE | 2018-10-01 08:23 | Progress Note ---
Provider Note Provider Note: Patient seen and evaluated. Colonoscopy not completed due to difficult sigmoid tortuosity yesterday. CT scan Lower GI negative for obstruction yesterday. D/w Dr. Cooper: patient can be discharged to home as per hospitalist today; follow up with her PCP, Dr. Cooper will laney her PCP and arrange for additional GI outpatient studies .
[2018-10-01] MEDS: FAMOTIDINE INJ/PF 20 MG/2 ML SDV IV SCH (09:02)
[2018-10-01] MEDS: CYCLOSPORINE 0.05% OPH EMULSIO 0.4 ML DROPERETTE OU SCH (09:02)
[2018-10-01] MEDS: ASCORBIC ACID 500 MG TABLET PO SCH (09:02)
[2018-10-01] MEDS: CETIRIZINE 10 MG TABLET PO SCH (09:02)
[2018-10-01] MEDS: TRAMADOL HCL 50 MG TABLET PO SCH (09:02)
[2018-10-01] MEDS: OMEGA-3 ACID ETHYL ESTERS 1 GM CAPSULE PO SCH (09:02)
[2018-10-01] MEDS: DOCUSATE SODIUM 100 MG CAPSULE PO SCH (09:03)
[2018-10-01 12:17] LABS: ABSOLUTE EOSINOPHILS # (AUTO) 0.1 10^3/uL (0.0-0.6); ABSOLUTE LYMPHOCYTES (AUTO) 0.5 10^3/uL (0.5-4.7); ABSOLUTE MONOCYTES (AUTO) 0.4 10^3/uL (0.1-1.4); ABSOLUTE NEUT (AUTO) 4.7 10^3/uL (1.7-8.2); BASOPHILS % (AUTO) 0.4 % (0-2); EOSINOPHILS % (AUTO) 1.9 % (0-6); HEMATOCRIT 22.8 % (36.0-47.0); LYMPHOCYTES % (AUTO) 9.2 % (13-45); MEAN CORPUSCULAR HEMOGLOBIN 28.6 pg (27.0-33.4); MEAN CORPUSCULAR HGB CONC 33.5 g/dL (32.0-36.0); MEAN CORPUSCULAR VOLUME 85 fl (80-97); MONOCYTES % (AUTO) 7.5 % (3-13); PLATELET COUNT 158 10^3/uL (150-450); RED BLOOD COUNT 2.67 10^6/uL (3.72-5.28); RED CELL DISTRIBUTION WIDTH 19.6 % (11.5-14.0); TOTAL CELLS COUNTED % (AUTO) 100 %; WHITE BLOOD COUNT 5.8 10^3/uL (4.0-10.5)
[2018-10-01 12:19] LABS: HEMOGLOBIN 7.6 g/dL (12.0-15.5)
[2018-10-01 13:33] VITALS: BP 133/58
--- NOTE | 2018-10-01 18:05 | PDOC DISCHARGE SUMMARY ---
General - Admit/Disc Date/PCP Admission Date/Primary Care Provider: 09/28/18 04:32 ETHAN MCMAHON MD Discharge Date: 10/01/18 - Discharge Diagnosis (1) Acute blood loss anemia Is this a current diagnosis for this admission?: Yes (2) Chest pain Is this a current diagnosis for this admission?: Yes (3) Elevated INR Is this a current diagnosis for this admission?: Yes (4) GI bleed Is this a current diagnosis for this admission?: Yes (5) Chronic atrial fibrillation Is this a current diagnosis for this admission?: Yes (6) Coronary artery disease Is this a current diagnosis for this admission?: Yes (7) Syncope and collapse Is this a current diagnosis for this admission?: Yes - Additional Information Resuscitation Status: Full Code Discharge Diet: Cardiac Discharge Activity: Activity As Tolerated Home Medications: Ascorbic Acid [Vitamin C] 1,000 mg PO DAILY 09/28/18 Cetirizine HCl [Zyrtec 10 mg Tablet] 10 mg PO DAILY 09/28/18 Cyclosporine 0.05% Oph Emulsio [Restasis 0.05% Oph Emulsion Pf 0.4 ml] 1 drop OU BID 09/28/18 Docusate Sodium [Colace 100 mg Capsule] 100 mg PO BID 09/28/18 Isosorbide Mononitrate [Isosorbide Mononitrate ER] 120 mg PO QPM 09/28/18 Magnesium 250 mg PO DAILY 09/28/18 Nitroglycerin [Nitrolingual] 1 spray SL Q5MP PRN 09/28/18 [place]-3 Fatty Acids/Fish Oil [Fish Oil 1,000 mg Capsule] 2 cap PO DAILY 09/28/18 Pramipexole Di-HCl [Mirapex 0.25 mg Tablet] 0.25 mg PO DAILY 09/28/18 Ranolazine [Ranexa 500 mg Tab.sr] 500 mg PO QAM 09/28/18 Tramadol HCl [Ultram 50 mg Tablet] 25 mg PO Q12 09/28/18 Ubidecarenone [Coq-10] 200 mg PO DAILY 09/28/18 l [place]/B Bifidum/B Longum [[employer] Capsule] 1 cap PO DAILY 09/28/18 Aspirin [Adult Low Dose Aspirin EC] 81 mg PO QPM #0 10/01/18 History of Present Illness History of Present Illness: SUNITA BALLESTEROS is a 83 year old female Patient was admitted with complaints of progressive generalized weakness associated with chest pain. She was found to be anemic on arrival in the emergency room with hemoglobin of 5.7 and INR of 5.3. She was admitted with an acute blood loss anemia as well as a coagulopathy. Please see history and physical for full details. Hospital Course Hospital Course: Patient was transfused with 4 units of packed red blood cells during her hospital stay. Coumadin was held. She also received 2 units of fresh frozen plasma. There was no visual acute evidence of bleeding and a subsequent endoscopy revealed some gastritis but no evidence of acute bleeding. She had a colonoscopy done unfortunately this appeared to be somewhat incomplete as the surgeon was unable to advance the scope beyond a certain point. A CT scan of the abdomen and pelvis was then done and this revealed no evidence of a pelvic or abdominal mass. There was an incidental note of a 1.5 cm cystic lesion of the pancreatic head and recommended follow-up with CT or MRI in 2 years is suggested Patient has otherwise been hemodynamically stable and with no further intervention is been planned she is being discharged home for outpatient follow- up. She is to follow-up with a networking engineer to reevaluate the need for continued anticoagulant. She has been advised to restart aspirin in about 5 days. She is also to follow-up with Dr. Dennison for further evaluation of her GI tract. Consultations General surgery Procedure done Upper esophagogastroduodenoscopy and colonoscopy 4 units of packed red blood cell transfusion and 2 units of fresh frozen plasma Physical Exam Vital Signs: Temp Pulse Resp BP Pulse Ox 98.2 F 72 16 130/67 H 92 10/01/18 13:20 10/01/18 13:20 10/01/18 13:20 10/01/18 13:20 10/01/18 13:20 Intake & Output 09/30/18 10/01/18 10/02/18 06:59 06:59 06:59 Intake Total 3389 950 Output Total 0 Balance 3389 950 Weight 81.9 kg 83.3 kg General appearance: PRESENT: no acute distress, well-developed, well-nourished Head exam: PRESENT: atraumatic, normocephalic Eye exam: PRESENT: conjunctiva pink, EOMI, PERRLA. ABSENT: scleral icterus Ear exam: PRESENT: normal external ear exam Mouth exam: PRESENT: moist, tongue midline Neck exam: ABSENT: carotid bruit, JVD, lymphadenopathy, thyromegaly Respiratory exam: PRESENT: clear to auscultation wojciech. ABSENT: rales, rhonchi, wheezes Cardiovascular exam: PRESENT: RRR, +S1, +S2, systolic murmur. ABSENT: diastolic murmur, rubs Pulses: PRESENT: normal dorsalis pedis pul Vascular exam: PRESENT: normal capillary refill GI/Abdominal exam: PRESENT: normal bowel sounds, soft. ABSENT: distended, guarding, mass, organolmegaly, rebound, tenderness Rectal exam: PRESENT: deferred Extremities exam: PRESENT: full ROM. ABSENT: calf tenderness, clubbing, pedal edema Neurological exam: PRESENT: alert, awake, oriented to person, oriented to place, oriented to time, oriented to situation, CN II-XII grossly intact. ABSENT: motor sensory deficit Psychiatric exam: PRESENT: appropriate affect, normal mood. ABSENT: homicidal ideation, suicidal ideation Skin exam: PRESENT: dry, intact, warm. ABSENT: cyanosis, rash Results Laboratory Results: 10/01/18 11:57 09/30/18 04:42 10/01/18 10/01/18 04:25 11:57 WBC 7.0 5.8 RBC 2.66 L 2.67 L Hgb 7.7 L 7.6 L Hct 22.4 L 22.8 L MCV 84 85 MCH 28.9 28.6 MCHC 34.3 33.5 RDW 19.6 H 19.6 H Plt Count 161 158 Seg Neutrophils % 81.0 H Lymphocytes % 9.2 L Monocytes % 7.5 Eosinophils % 1.9 Basophils % 0.4 Absolute Neutrophils 4.7 Absolute Lymphocytes 0.5 Absolute Monocytes 0.4 Absolute Eosinophils 0.1 Absolute Basophils 0.0 09/28/18 03:16 Troponin I 0.013 Impressions: Chest X-Ray 09/28/18 03:19 IMPRESSION: Cardiomegaly with postsurgical changes. Evidence of prior granulomatous disease. Underlying COPD is suspected. copyright 2010 [employer]- All Rights Reserved Abdomen/Pelvis CT 09/30/18 00:00 IMPRESSION: 1. The colon is contrast opacified to the rectum, containing a rectal tube. No evidence of proximal obstipation. 2. 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 This finding was not well appreciated on prior noncontrast CT dated 04/14/2017. Recommend initial follow-up CT or MRI in 2 years to establish stability if clinically appropriate per ACR cystic pancreatic lesion follow-up criteria. Qualifiers - * PATIENT BEING DISCHARGED WITH ANY OF THE FOLLOWING DIAGNOSIS: No
== END 2018-10-01 14:32 | disposition home or self-care (01) | DRG 378 ==
LOC: ER 03:13 → EH 04:32 → 3N 16:49
PROVIDERS: ADMIT Emergency Medicine; ATTEND Emergency Medicine
PROC: 30233N1 Transfusion of Nonautologous Red Blood Cells into Peripheral Vein, Percutaneous Approach (ICD-10-PCS; principal; 2018-09-28)
PROC: 30233L1 Transfusion of Nonautologous Fresh Plasma into Peripheral Vein, Percutaneous Approach (ICD-10-PCS; 2018-09-28)
PROC: 3E0F73Z Introduction of Anti-inflammatory into Respiratory Tract, Via Natural or Artificial Opening (ICD-10-PCS; 2018-09-29)
PROC: 0DJD8ZZ Inspection of Lower Intestinal Tract, Via Natural or Artificial Opening Endoscopic (ICD-10-PCS; 2018-09-30)
PROC: 0DB78ZX Excision of Stomach, Pylorus, Via Natural or Artificial Opening Endoscopic, Diagnostic (ICD-10-PCS; 2018-09-30)
DX: K92.2 Gastrointestinal hemorrhage, unspecified (principal); D62 Acute posthemorrhagic anemia; K86.2 Cyst of pancreas; N17.9 Acute kidney failure, unspecified; R55 Syncope and collapse; I48.2 Chronic atrial fibrillation; I25.10 Atherosclerotic heart disease of native coronary artery without angina pectoris; R62.7 Adult failure to thrive; E78.00 Pure hypercholesterolemia, unspecified; I10 Essential (primary) hypertension; K21.9 Gastro-esophageal reflux disease without esophagitis; M19.90 Unspecified osteoarthritis, unspecified site; N18.9 Chronic kidney disease, unspecified; T45.511A Poisoning by anticoagulants, accidental (unintentional), initial encounter; K64.4 Residual hemorrhoidal skin tags; K44.9 Diaphragmatic hernia without obstruction or gangrene; K29.70 Gastritis, unspecified, without bleeding; I25.2 Old myocardial infarction; Z79.82 Long term (current) use of aspirin; Z86.73 Personal history of transient ischemic attack (TIA), and cerebral infarction without residual deficits; Z88.3 Allergy status to other anti-infective agents; Z79.01 Long term (current) use of anticoagulants; Z79.899 Other long term (current) drug therapy; Z95.1 Presence of aortocoronary bypass graft; Z95.5 Presence of coronary angioplasty implant and graft; Z90.710 Acquired absence of both cervix and uterus; Z87.891 Personal history of nicotine dependence; Z80.9 Family history of malignant neoplasm, unspecified; Z82.49 Family history of ischemic heart disease and other diseases of the circulatory system
CPT/HCPCS: 36415; 36430; 43239; 45378; 71045; 74177; 80048; 80053; 813; 82962; 83735; 84484; 85025; 85027; 85610; 86850; 86900; 86901; 86920; 88305; 88342; 93005; 93010; 96374; 99285; J1940; J2405; J2704; J3490; P9016; P9017; S0028; S0164

== ENCOUNTER → 2018-10-19 | Outpatient (CLI) | payer MEDICARE, OTHER ==
--- NOTE | 2018-10-19 13:12 | RADIOLOGY REPORT (SQ) ---
EXAM DESCRIPTION: UPPER GI/SM BOWEL COMPLETED DATE/TIME: 10/19/2018 12:23 pm REASON FOR STUDY: ANEMIA (D64.9) D64.9 ANEMIA, UNSPECIFIED COMPARISON: None. TECHNIQUE: Under fluoroscopic guidance, patient ingested effervescent granules followed by thick an d thin barium. Fluoroscopic spot images and routine radiographic images acquired and stored on PACS . Following evaluation of esophagus and stomach, additional barium administered with serial delayed ab dominal radiographs until colonic identification. Fluoroscopic images recorded of the terminal ileu m. 12 MM BARIUM TABLET GIVEN: Yes. No significant delay in passage. FLUOROSCOPY TIME: 2.3 MINUTES OF FLUOROSCOPY WAS USED. 28 images saved to PACS. LIMITATIONS: None. FINDINGS: NEUROPHYSIOLOGY TECH KUB: Large amount of fecal material seen throughout the colon. Significant vascula r calcifications throughout the abdomen. Multiple calcifications within the spleen from previous gra nulomatous disease. NEUROMUSCULAR COORDINATION OF SWALLOW: Normal. No aspiration. ESOPHAGEAL MOTILITY: Normal peristalsis. No esophageal spasm. ESOPHAGEAL MUCOSA: Normal mucosa without masses or ulceration. GASTRO-ESOPHAGEAL JUNCTION: Small sliding hiatal hernia with free-flowing gastroesophageal reflux. STOMACH: Normal without masses or ulcerations. GASTRIC OUTLET: No delay in emptying. Normal pylorus. DUODENAL BULB: Normal distention. No spasm or ulceration. DUODENUM: Mucosa normal. No extrinsic masses or malrotation. 2 duodenal diverticulum in the 3rd por tion of the duodenum. PROXIMAL SMALL BOWEL: Normal as visualized. JEJUNUM: Normal mucosal pattern. No dilatation, segmentation, strictures or masses. ILEUM: Normal mucosal pattern. No dilatation, segmentation, strictures or masses. TERMINAL ILEUM AND ILEO-CECAL VALVE: Normal mucosal pattern without cobble-stoning or stricture. Nor mal compression. PROXIMAL COLON: Incompletely imaged. Large amount of fecal material. No abnormality. NON-GI TRACT STRUCTURES: No significant finding. OTHER: No other significant finding. IMPRESSION: 1. SMALL SLIDING HIATAL HERNIA WITH MILD GASTROESOPHAGEAL REFLUX. 2. DUODENAL DIVERTICULUM. 3. NORMAL SMALL BOWEL FOLLOW-THROUGH. COMMENT: Quality ID [id number]: Final reports for procedures using fluoroscopy that document radiation exp osure indices, or exposure time and number of fluorographic images (if radiation exposure indices are not available) TECHNICAL DOCUMENTATION: JOB ID: [id number] [employer]- All Rights Reserved Reading location - IP/workstation name: [email or web address]
== END ==
LOC: RAD 08:43
PROVIDERS: ATTEND Internal Medicine
DX: D64.9 Anemia, unspecified (principal); K44.9 Diaphragmatic hernia without obstruction or gangrene; K21.9 Gastro-esophageal reflux disease without esophagitis; K57.10 Diverticulosis of small intestine without perforation or abscess without bleeding
CPT/HCPCS: 74249

== ENCOUNTER → 2018-10-28 | Outpatient (CLI) | payer MEDICARE, OTHER ==
[2018-10-28 16:55] LABS: ABSOLUTE EOSINOPHILS # (AUTO) 0.2 10^3/uL (0.0-0.6); ABSOLUTE LYMPHOCYTES (AUTO) 0.9 10^3/uL (0.5-4.7); ABSOLUTE MONOCYTES (AUTO) 0.3 10^3/uL (0.1-1.4); ABSOLUTE NEUT (AUTO) 3.8 10^3/uL (1.7-8.2); BASOPHILS % (AUTO) 0.6 % (0-2); EOSINOPHILS % (AUTO) 3.2 % (0-6); HEMATOCRIT 32.1 % (36.0-47.0); HEMOGLOBIN 10.7 g/dL (12.0-15.5); LYMPHOCYTES % (AUTO) 16.8 % (13-45); MEAN CORPUSCULAR HEMOGLOBIN 29.1 pg (27.0-33.4); MEAN CORPUSCULAR HGB CONC 33.5 g/dL (32.0-36.0); MEAN CORPUSCULAR VOLUME 87 fl (80-97); PLATELET COUNT 183 10^3/uL (150-450); RED BLOOD COUNT 3.69 10^6/uL (3.72-5.28); RED CELL DISTRIBUTION WIDTH 18.6 % (11.5-14.0); SEGMENTED NEUTROPHILS % (AUTO) 73.4 % (42-78); TOTAL CELLS COUNTED % (AUTO) 100 %; WHITE BLOOD COUNT 5.1 10^3/uL (4.0-10.5)
[2018-10-28 17:15] LABS: IRON(TIBC) 112.8 ug/dL (37-170)
== END ==
LOC: OD 15:29
PROVIDERS: ATTEND Internal Medicine
DX: D64.9 Anemia, unspecified (principal)
CPT/HCPCS: 36415; 82728; 83540; 83550; 85025

== ENCOUNTER → 2019-05-06 | Outpatient (CLI) | payer MEDICARE, OTHER ==
--- NOTE | 2019-05-06 16:27 | RADIOLOGY REPORT (SQ) ---
EXAM DESCRIPTION: VENOUS UNILATERAL LOWER COMPLETED DATE/TIME: 05/06/2019 4:18 pm REASON FOR STUDY: LLE SWELLING R60.9 EDEMA, UNSPECIFIED COMPARISON: None. TECHNIQUE: Dynamic and static sewell scale and color images acquired of the left leg venous system. Se lected spectral images acquired with additional compression and augmentation maneuvers. The contralat eral common femoral vein and saphenofemoral junction were also imaged. Images stored on PACS. LIMITATIONS: None. FINDINGS: COMMON FEMORAL: Normal phasicity, compression and augmentation. No visualized echogenic ma terial on sewell scale. No defects on color images. FEMORAL: Normal compression and augmentation. No visualized echogenic material on sewell scale. No defe cts on color images. POPLITEAL: Normal compression, augmentation. No visualized echogenic material on sewell scale. No defec ts on color images. CALF VESSELS: Normal compression, augmentation. No visualized echogenic material on sewell scale. No de fects on color images. GSV and SSV: Normal compression, augmentation. No visualized echogenic material on sewell scale. No def ects on color images. ANY DEEP VENOUS INSUFFICIENCY: Not evaluated. ANY EVIDENCE OF POPLITEAL CYST: No. OTHER: No other significant finding. CONTRALATERAL COMMON FEMORAL VEIN AND SAPHENOFEMORAL JUNCTION: Normal phasicity, compression and augmentation. No visualized echogenic material on sewell scale. No de fects on color images. IMPRESSION: NO EVIDENCE OF DVT OR SVT IN THE LEFT LEG. TECHNICAL DOCUMENTATION: JOB ID: [id number] [place]-72 2010 [employer]- All Rights Reserved Reading location - IP/workstation name: [email or web address]
== END ==
LOC: SP 15:33
PROVIDERS: ATTEND Orthopaedic Surgery
DX: M17.12 Unilateral primary osteoarthritis, left knee (principal); R60.9 Edema, unspecified
CPT/HCPCS: 93971

== ENCOUNTER 2019-06-09 11:19 | Observation (INO) | payer MEDICARE, OTHER ==
[2019-06-09] MEDS ORDERED: ONDANSETRON HCL INJ/PF 4 MG/2 ML SDV IV ONE (11:36)
--- NOTE | 2019-06-09 11:45 | ER Document Report ---
ED General - General Chief Complaint: Vomiting Stated Complaint: DIZZINESS,VOMITING Time Seen by Provider: 06/09/19 11:27 Primary Care Provider: MANUEL ESPINOSA MD [ASSOCIATE] - Follow up as needed Information source: Patient Notes: HPI: 84-year-old female who presents today feeling some nausea while sitting in a chair and almost passing out. She did not fall off the chair lose consciousness. No seizure activity noted and no incontinence. Patient states she has had syncope "many times in the past". She denies any and all headache, chest pain, abdominal pain, fevers, vomiting, weakness or numbness. No recent diarrhea. Patient does states she just finished Friday a course of cipro floxacin secondary to a urinary tract infection by the primary care physician Dr. Holt. She states also for 3 weeks she has had a little bit of left lower extremity pain. She did see the orthopedic surgeon with a negative x-ray and Doppler study 3 weeks ago. Patient was given atropine by EMS secondary to some bradycardia. The rhythm strip showed no obvious ST elevation or depression. Patient denies any and all symptoms at this moment. ROS: See HPI All other review of systems reviewed and otherwise negative Reviewed vital signs and nursing note as charted by RN. PHYSICAL EXAM: CONSTITUTIONAL: Alert and oriented and responds appropriately to questions. Well-appearing; well-nourished HEAD: Normocephalic; atraumatic EYES: PERRL; full extraocular range of motion; no nystagmus ENT: Normal nose; no rhinorrhea; moist mucous membranes; no carotid bruit; pharynx without lesions noted NECK: Supple without meningismus; non-tender; no cervical lymphadenopathy, no masses CARD: Regular rate and rhythm; no murmurs; symmetric distal pulses RESP: Normal chest excursion without splinting or tachypnea; breath sounds clear and equal bilaterally; no wheezes, no rhonchi, no rales ABD/GI: Normal bowel sounds; non-distended; soft, non-tender; no palpable organomegaly, abdominal bruits, or masses BACK: The back appears normal and is non-tender to palpation EXT: Normal ROM in all joints; mild tenderness without any obvious swelling to the left lateral ankle and calf. No erythema, induration, or fluctuance. Strong distal pulses with strength intact with good capillary refill to the foot and toes SKIN: No acute lesions noted NEURO: CN 2-12 intact; 5/5 bilateral upper and lower extremity strength with sensation intact to light touch PSYCH: The patient's mood and manner are appropriate. Grooming and personal hygiene are appropriate. TRAVEL OUTSIDE OF THE [place] IN LAST 30 DAYS: No - Related Data Allergies/Adverse Reactions: levofloxacin [From Levaquin] Allergy (Severe, Verified 09/28/18 03:41) Diarrhea Past Medical History - Social History Smoking Status: Unknown if Ever Smoked Family History: Hypertension, Malignancy Patient has suicidal ideation: No Patient has homicidal ideation: No - Past Medical History Cardiac Medical History: Reports: Hx Coronary Artery Disease, Hx Heart Attack, Hx Hypercholesterolemia, Hx Hypertension Denies: Hx Atrial Fibrillation, Hx Congestive Heart Failure, Hx Peripheral Vascular Disease, Hx Heart Murmur Pulmonary Medical History: Denies: Hx Asthma, Hx Bronchitis, Hx COPD, Hx Pneumonia, Hx Tuberculosis Neurological Medical History: Reports: Hx Cerebrovascular Accident. Denies: Hx Seizures Endocrine Medical History: Denies: Hx Diabetes Mellitus Type 1, Hx Diabetes Mellitus Type 2, Hx Hyperthyroidism, Hx Hypothyroidism Renal/ Medical History: Denies: Hx Peritoneal Dialysis GI Medical History: Reports: Hx Gastroesophageal Reflux Disease. Denies: Hx Cirrhosis, Hx Hepatitis Musculoskeletal Medical History: Reports Hx Arthritis, Denies Hx Gout Skin Medical History: Denies Hx Eczema, Denies Hx Psoriasis Infectious Medical History: Denies: Hx Hepatitis Past Surgical History: Reports: Hx Cardiac Catheterization, Hx Cardiac Surgery - "bypass", Hx Coronary Artery Bypass Graft, Hx Coronary Stent, Hx Hysterectomy, Hx Tubal Ligation. Denies: Hx Appendectomy, Hx Bowel Surgery, Hx Section, Hx Cholecystectomy, Hx Gastric Bypass Surgery, Hx Herniorrhaphy, Hx Mastectomy, Hx Pacemaker, Hx Tonsillectomy - Immunizations Hx Diphtheria, Pertussis, Tetanus Vaccination: No Physical Exam - Vital signs Vitals: Resp BP Pulse Ox 19 149/94 H 99 06/09/19 11:23 06/09/19 11:23 06/09/19 11:23 Course - Re-evaluation Re-evalutation: 06/09/19 11:44 Given the above history and physical we will obtain basic labs, EKG, troponin, place the patient on the monitor, obtain a catheterized urine analysis, repeat Doppler ultrasound, and reassess. I do believe ACS, PE, dissection to be unlikely. I would like to assess the possibility of a resistant urinary tract infection. I do not see any obvious cardiac etiology at this moment. EKG shows a heart of 69, normal sinus rhythm, normal axis, incomplete right bundle branch block, no obvious ST elevation or depression. No change from previous EKG from September 28, 2018. 06/09/19 12:21 Labs as recorded. Urine analysis as recorded. Rocephin has been given. Urine culture has been sent. I did call the primary care physician Dr. James Garcia who states that he did not perform a urine culture on the previous urinary tract infection. Patient was treated with ciprofloxacin at that time. Vital signs are stable. Given the episode with the bradycardia, atropine provided, I do believe the patient may require observation. - Vital Signs Vital signs: Temp Pulse Resp BP Pulse Ox 97.9 F 19 149/94 H 99 06/09/19 11:27 06/09/19 11:23 06/09/19 11:23 06/09/19 11:23 - Laboratory Result Diagrams: 06/09/19 11:27 06/09/19 11:27 Laboratory results interpreted by me: 06/09/19 06/09/19 06/09/19 11:27 11:27 11:44 RBC 3.54 L Hgb 11.0 L Hct 33.0 L BUN 23 H Est GFR ( Amer) 57 L Est GFR (MDRD) Non-Af 47 L Total Protein 6.1 L Urine Nitrite POSITIVE H Ur Leukocyte Esterase LARGE H Urine Ascorbic Acid 40 H Discharge - Discharge Clinical Impression: UTI (urinary tract infection) Qualifiers: Urinary tract infection type: site unspecified Hematuria presence: without hematuria Qualified Code(s): N39.0 - Urinary tract infection, site not specified Syncope Qualifiers: Syncope type: unspecified Qualified Code(s): R55 - Syncope and collapse Condition: Fair Disposition: ADMITTED OBSERVATION Admitting Provider: dex (Hospitalist) Unit Admitted: Telemetry Referrals: MANUEL ESPINOSA MD [ASSOCIATE] - Follow up as needed
[2019-06-09 11:46] LABS: ABSOLUTE EOSINOPHILS # (AUTO) 0.1 10^3/uL (0.0-0.6); ABSOLUTE LYMPHOCYTES (AUTO) 1.1 10^3/uL (0.5-4.7); ABSOLUTE MONOCYTES (AUTO) 0.5 10^3/uL (0.1-1.4); ABSOLUTE NEUT (AUTO) 3.9 10^3/uL (1.7-8.2); BASOPHILS % (AUTO) 0.6 % (0-2); EOSINOPHILS % (AUTO) 2.7 % (0-6); LYMPHOCYTES % (AUTO) 18.9 % (13-45); MEAN CORPUSCULAR HEMOGLOBIN 31.1 pg (27.0-33.4); MEAN CORPUSCULAR HGB CONC 33.4 g/dL (32.0-36.0); MEAN CORPUSCULAR VOLUME 93 fl (80-97); MONOCYTES % (AUTO) 8.2 % (3-13); PLATELET COUNT 164 10^3/uL (150-450); RED BLOOD COUNT 3.54 10^6/uL (3.72-5.28); RED CELL DISTRIBUTION WIDTH 13.7 % (11.5-14.0); SEGMENTED NEUTROPHILS % (AUTO) 69.6 % (42-78); TOTAL CELLS COUNTED % (AUTO) 100 %; WHITE BLOOD COUNT 5.6 10^3/uL (4.0-10.5)
[2019-06-09 11:58] LABS: ALBUMIN 3.6 g/dL (3.5-5.0); ALKALINE PHOSPHATASE 74 U/L (38-126); ANION GAP 10 (5-19); ASPARTATE AMINO TRANSFERASE 22 U/L (14-36); BILIRUBIN,DIRECT 0.2 mg/dL (0.0-0.4); BILIRUBIN,TOTAL 0.4 mg/dL (0.2-1.3); BLOOD UREA NITROGEN 23 mg/dL (7-20); CALCIUM 9.4 mg/dL (8.4-10.2); CARBON DIOXIDE 27 mmol/L (22-30); CHLORIDE 101 mmol/L (98-107); CREATINE KINASE 40 U/L (30-135); GLUCOSE 100 mg/dL (75-110); POTASSIUM 3.9 mmol/L (3.6-5.0); TOTAL PROTEIN 6.1 g/dL (6.3-8.2)
[2019-06-09 12:07] LABS: APPEARANCE,URINE SLIGHTLY-CLOUDY; BILIRUBIN,URINE NEGATIVE (NEGATIVE); COLOR,URINE YELLOW; GLUCOSE, URINE NEGATIVE (NEGATIVE); KETONES,URINE NEGATIVE (NEGATIVE); LEUKOCYTE ESTERASE,URINE LARGE (NEGATIVE); NITRITE,URINE POSITIVE (NEGATIVE); PROTEIN,URINE NEGATIVE (NEGATIVE); URINE SPECIFIC GRAVITY 1.014; UROBILINOGEN,URINE NEGATIVE mg/dL (<2.0)
[2019-06-09] MEDS ORDERED: CEFTRIAXONE 1 GM/D5W RTU 1 GM/50 ML RTUPB IV ONE (12:21)
[2019-06-09] MEDS ORDERED: NORMAL SALINE 1000 ML 1,000 ML IV ONE (12:22)
[2019-06-09 12:23] LABS: TROPONIN I < 0.012 ng/mL
[2019-06-09] MEDS ORDERED: ONDANSETRON HCL INJ/PF 4 MG/2 ML SDV IV PRN (14:01)
[2019-06-09] MEDS ORDERED: TEMAZEPAM 7.5 MG CAPSULE PO PRN (14:01)
[2019-06-09] MEDS ORDERED: IPRATROPIUM/ALBUTEROL 0.5-2.5 MG/3 ML AMPUL NEB PRN (14:01)
[2019-06-09] MEDS ORDERED: MAG HYDROX/AL HYDROX/SIMETH SUSP 30 ML UDCUP PO PRN (14:01)
[2019-06-09] MEDS ORDERED: ACETAMINOPHEN 325 MG TABLET PO PRN (14:01)
[2019-06-09] MEDS ORDERED: PROMETHAZINE HCL INJ 25 MG/1 ML VIAL IV PRN (14:01)
[2019-06-09] MEDS ORDERED: OXYCODONE-ACETAMINOPHEN 5-325 MG TABLET PO PRN (14:01)
[2019-06-09] MEDS ORDERED: NITROGLYCERIN SL PRN (14:50)
--- NOTE | 2019-06-09 14:50 | PDOC H&P ---
History of Present Illness Admission Date/PCP: 06/09/19 13:12 ETHAN MCMAHON MD History of Present Illness: SUNITA BALLESTEROS is a 84 year old female past medical history of hypertension, C VA, CAD status post CABG and stent placement, presented to ED complaining of lightheadedness. Started having UTI symptoms a week ago and was started on ciprofloxacin by PCP, most of her symptoms have resolved. Patient also had a fall 3 weeks ago and sustained left lower extremity and ankle sprain, was seen by Dr. Graves orthopedic surgeon, x-ray did not show any fracture and ultrasound was negative for any DVT. Has not been able to ambulate properly since then, patient was sitting in chair, was about to go to the restroom, started feeling lightheaded, felt like he was about to pass out, did not lose consciousness, was present, no seizure activity was noticed, did not sustain any trauma, did not fall to the floor. Patient reports a healthy appetite, keeps hydrated, denies any chest pain, shortness of breath, abdominal pain, diarrhea, constipation. EMS arrived and they found her to be bradycardic, 1 dose of atropine was given. In ED EKG showed sinus rhythm, no acute changes, troponins were negative, CBC CMP WNL, except for UA which was positive for leukocyte esterase and nitrates. Hospitalist was consulted for admission. Past Medical History Cardiac Medical History: Reports: Coronary Artery Disease, Myocardial Infarctio n, Hyperlipidema, Hypertension Denies: Atrial Fibrillation, Congestive Heart Failure, Peripheral Vascular Disease, Heart Murmur Pulmonary Medical History: Denies: Asthma, Bronchitis, Chronic Obstructive Pulmonary Disease (COPD), Pneumonia, Tuberculosis Neurological Medical History: Denies: Seizures Endocrine Medical History: Denies: Diabetes Mellitus Type 1, Diabetes Mellitus Type 2, Hyperthyroidism, Hypothyroidism GI Medical History: Reports: Gastroesophageal Reflux Disease Denies: Cirrhosis, Hepatitis Musculoskeltal Medical History: Reports: Arthritis Denies: Gout Skin Medical History: Denies: Eczema, Psoriasis Hematology: Denies: Anemia, Bleeding Tendencies Past Surgical History Past Surgical History: Reports: Cardiac Catheterization, Coronary Artery Bypass Graft, Coronary Stent, Hysterectomy, Tubal Ligation Denies: Appendectomy, Section, Cholecystectomy, Gastric Bypass Surgery, Herniorrhaphy, Mastectomy, Pacemaker, Tonsillectomy Social History Smoking Status: Unknown if Ever Smoked Frequency of Alcohol Use: None Hx Recreational Drug Use: No Drugs: None Hx Prescription Drug Abuse: No Family History Family History: Hypertension, Malignancy Parental Family History Reviewed: Yes Children Family History Reviewed: Yes Sibling(s) Family History Reviewed.: Yes Medication/Allergy Home Medications: Apixaban [Eliquis 5 mg Tablet] 5 mg PO Q12 06/09/19 Ascorbic Acid [Vitamin C 500 mg Tablet] 500 mg PO BID 06/09/19 Aspirin [Lo-Dose Aspirin EC] 81 mg PO DAILY 06/09/19 Cetirizine HCl [Zyrtec 10 mg Tablet] 10 mg PO DAILY 06/09/19 Cyanocobalamin (Vitamin B-12) [Vitamin B-12] 1,000 mcg PO DAILY 06/09/19 Cyclosporine 0.05% Oph Emulsio [Restasis 0.05% Opthalmic Droperette] 1 drop OU BID 06/09/19 Docusate Sodium [Colace 100 mg Capsule] 100 mg PO BID 06/09/19 Isosorbide Mononitrate [Isosorbide Mononitrate ER] 120 mg PO QPM 06/09/19 Magnesium Oxide [Magnesium] 250 mg PO DAILY 06/09/19 Nitrofurantoin Macrocrystal [Macrodantin] 100 mg PO DAILY 06/09/19 Nitroglycerin [Nitrolingual] 1 spray SL Q5MP PRN 06/09/19 [place]-3/Dha/Epa/Fish Oil [Fish Oil 1,000 mg Softgel] 1 each PO BID 06/09/19 Pramipexole Di-HCl [Mirapex 0.25 Mg Tablet] 0.25 mg PO DAILY 06/09/19 Ranolazine [Ranexa 500 mg Tab.sr] 500 mg PO DAILY 06/09/19 Tolterodine Tartrate [Tolterodine Tartrate ER] 2 mg PO DAILY 06/09/19 Tramadol HCl [Ultram 50 mg Tablet] 50 mg PO Q12 06/09/19 Ubidecarenone [Coq-10] 200 mg PO BID 06/09/19 Vit A/Vit C/Vit E/Zinc/Copper [Preservision Areds Softgel] 1 each PO BID 06/09/19 l [place]/B Bifidum/B Longum [Christensen Colon Health Capsule] 1 each PO DAILY 06/09/19 Allergies/Adverse Reactions: levofloxacin [From Levaquin] Allergy (Severe, Verified 09/28/18 03:41) Diarrhea Review of Systems Review of Systems: as per hpi Physical Exam Vital Signs: Temp Pulse Resp BP Pulse Ox 97.9 F 14 155/59 H 93 06/09/19 11:27 06/09/19 14:02 06/09/19 14:02 06/09/19 14:02 Intake & Output 06/08/19 06/09/19 06/10/19 06:59 06:59 06:59 Intake Total 1050 Balance 1050 Weight 89.4 kg General appearance: PRESENT: obese Respiratory exam: PRESENT: clear to auscultation wojciech. ABSENT: rales, rhonchi, wheezes Cardiovascular exam: PRESENT: RRR. ABSENT: diastolic murmur, rubs, systolic murmur GI/Abdominal exam: PRESENT: normal bowel sounds, soft. ABSENT: distended, gu arding, mass, organolmegaly, rebound, tenderness Musculoskeletal exam: PRESENT: other - Left lower extremity swelling, no erythema, neurovascularly intact. Tender over the arch of the foot. Neurological exam: PRESENT: alert, awake, oriented to person, oriented to place, oriented to time, oriented to situation, CN II-XII grossly intact. ABSENT: mo tor sensory deficit Results Laboratory Results: 06/09/19 11:27 06/09/19 11:27 06/09/19 06/09/19 06/09/19 11:27 11:27 11:44 WBC 5.6 RBC 3.54 L Hgb 11.0 L Hct 33.0 L MCV 93 MCH 31.1 MCHC 33.4 RDW 13.7 Plt Count 164 Seg Neutrophils % 69.6 Sodium 138.3 Potassium 3.9 Chloride 101 Carbon Dioxide 27 Anion Gap 10 BUN 23 H Creatinine 1.10 Est GFR ( Amer) 57 L Glucose 100 Calcium 9.4 Total Bilirubin 0.4 AST 22 Alkaline Phosphatase 74 Total Protein 6.1 L Albumin 3.6 Urine Color YELLOW Urine Appearance SLIGHTLY-CLOUDY Urine pH 6.0 Ur Specific [place] 1.014 Urine Protein NEGATIVE Urine Glucose (UA) NEGATIVE Urine Ketones NEGATIVE Urine Blood NEGATIVE Urine Nitrite POSITIVE H Ur Leukocyte Esterase LARGE H Urine WBC (Auto) 111 Urine RBC (Auto) 5 06/09/19 06/09/19 11:27 11:27 Creatine Kinase 40 CK-MB (CK-2) 1.00 Troponin I < 0.012 Assessment and Plan - Diagnosis (1) Pre-syncope Is this a current diagnosis for this admission?: Yes Plan: Likely due to bradycardia boarded by EMS VS dehydration. EKG in ED and campus monitor shows sinus rhythm. Admit to telemetry, fall precaution, cautious rehydration guided by volume status, orthostatic vitals. Patient may need 30-day event monitor. Dry Plasterer Helper is Dr. Eugene. While arranging follow-up with Dr. Eugene for a 30-day event monitor placement. (2) UTI (urinary tract infection) Qualifiers: Urinary tract infection type: site unspecified Hematuria presence: without hematuria Qualified Code(s): N39.0 - Urinary tract infection, site not specified Is this a current diagnosis for this admission?: Yes Plan: Likely due to gram-negative processes E. coli. Has been on ciprofloxacin for a week, however UA still positive. Was a started on ciprofloxacin by PCP, no cultures were taken. Empiric IV ceftriaxone, obtain urine culture. Switch to antibiotics based on culture and sensitivity. (3) Hypertension Is this a current diagnosis for this admission?: Yes Plan: Normotensive. Restart home meds. Adjust meds as needed. Outpatient PCP follow-up. (4) Coronary artery disease Qualifiers: Coronary Disease-Associated Artery/Lesion type: [place] artery [place] vs. transplanted heart: [place] heart Associated angina: without angina Qualified Code(s): I25.10 - Atherosclerotic heart disease of [place] coronary artery without angina pectoris Is this a current diagnosis for this admission?: Yes Plan: Status post 2 stent placement and CABG. Restart home meds. Outpatient cardiology follow-up. Denies any anginal pain. (5) GERD (gastroesophageal reflux disease) Qualifiers: Esophagitis presence: without esophagitis Qualified Code(s): K21.9 - Gastro-esophageal reflux disease without esophagitis Is this a current diagnosis for this admission?: Yes Plan: Restart home meds.
[2019-06-09] MEDS ORDERED: ENOXAPARIN SODIUM INJ 40 MG/0.4 ML DISP.SYRIN SUBCUT SCH (16:00)
[2019-06-09] MEDS: NORMAL SALINE 1000 ML 1,000 ML IV PRN (16:09)
[2019-06-09] MEDS: ASPIRIN 81 MG TABLET, ENT COATED PO SCH (16:09)
[2019-06-09] MEDS: ISOSORBIDE MONONITRATE 60 MG TAB.ER.24H PO SCH ×2 (17:20→17:24)
[2019-06-09] MEDS: DOCUSATE SODIUM 100 MG CAPSULE PO SCH (17:20)
[2019-06-09] MEDS: OMEGA-3 ACID ETHYL ESTERS 1 GM CAPSULE PO SCH (17:20)
[2019-06-09] MEDS: CYCLOSPORINE 0.05% OPH EMULSIO 0.4 ML DROPERETTE OU SCH (17:21)
[2019-06-09] MEDS ORDERED: (PENDING PHARMACY ID) (Isosorbide Mononitrate [Isosorbide Mononitrate Er] 120 MG) PO SCH (18:00)
[2019-06-09] MEDS ORDERED: (PENDING PHARMACY ID) (Omega-3/Dha/Epa/Fish Oil [Fish Oil 1,000 Mg Softgel] 1 EACH) PO SCH (18:00)
[2019-06-09 18:06] LABS: ANION GAP 8 (5-19); BLOOD UREA NITROGEN 21 mg/dL (7-20); CALCIUM 9.4 mg/dL (8.4-10.2); CARBON DIOXIDE 31 mmol/L (22-30); CHLORIDE 99 mmol/L (98-107); GLUCOSE 96 mg/dL (75-110); POTASSIUM 4.3 mmol/L (3.6-5.0)
--- NOTE | 2019-06-09 18:25 | XCELERA REPORT ---
[address] [place] [facility] [id number] Lower Extremity Venous Evaluation Procedure: Color flow and duplex imaging of the veins of the left lower extremity as well as the right Common Femoral vein. Right Sided Venous Evaluation The right common femoral vein is fully compressible. Spontaneous and phasic flow is present in the right common femoral vein. Left Sided Venous Evaluation Normal vessel filling wall to wall, compression and augmentation as well as Colour flow down to the infrageniculate veins. Interpretation Summary No duplex evidence of DVT or obstruction in the left lower extremity nor in the right Common Femoral vein. Name: SUNITA BALLESTEROS Age: 84 yrs Gender: Female : 1935 Patient Status: Inpatient Patient Location: [address] [place], [place] [address]A Study Date: 06/09/2019 01:55 PM Reason For Study: tr1; left lower ext Ordering Physician: REHANA MONTES DE OCA Performed By: Charlie Wagner : REHANA MONTES DE OCA > Zak Woodall
[2019-06-09] MEDS: TOLTERODINE TARTRATE 1 MG TABLET PO SCH (22:30)
[2019-06-09] MEDS: FAMOTIDINE 20 MG TABLET PO SCH (22:30)
[2019-06-09] MEDS: APIXABAN 5 MG TABLET PO SCH (22:30)
[2019-06-10 05:46] LABS: ABSOLUTE EOSINOPHILS # (AUTO) 0.1 10^3/uL (0.0-0.6); ABSOLUTE LYMPHOCYTES (AUTO) 0.9 10^3/uL (0.5-4.7); ABSOLUTE MONOCYTES (AUTO) 0.5 10^3/uL (0.1-1.4); ABSOLUTE NEUT (AUTO) 3.2 10^3/uL (1.7-8.2); BASOPHILS % (AUTO) 0.5 % (0-2); HEMATOCRIT 30.1 % (36.0-47.0); HEMOGLOBIN 10.1 g/dL (12.0-15.5); LYMPHOCYTES % (AUTO) 19.5 % (13-45); MEAN CORPUSCULAR HEMOGLOBIN 31.1 pg (27.0-33.4); MEAN CORPUSCULAR HGB CONC 33.7 g/dL (32.0-36.0); MEAN CORPUSCULAR VOLUME 92 fl (80-97); MONOCYTES % (AUTO) 10.4 % (3-13); PLATELET COUNT 148 10^3/uL (150-450); RED BLOOD COUNT 3.26 10^6/uL (3.72-5.28); SEGMENTED NEUTROPHILS % (AUTO) 66.6 % (42-78); TOTAL CELLS COUNTED % (AUTO) 100 %; WHITE BLOOD COUNT 4.8 10^3/uL (4.0-10.5)
[2019-06-10] MEDS: NORMAL SALINE 1000 ML 1,000 ML IV PRN (06:35)
[2019-06-10] MEDS ORDERED: ISOSORBIDE MONONITRATE 60 MG TAB.ER.24H PO SCH (08:00)
--- NOTE | 2019-06-10 09:16 | EKG REPORT ---
SEVERITY:- ABNORMAL ECG - SINUS RHYTHM INFERIOR INFARCT, AGE INDETERMINATE : Confirmed by: Nikki Mills 10-Jun-2019 09:15:39
[2019-06-10] MEDS: DOCUSATE SODIUM 100 MG CAPSULE PO SCH (09:17)
[2019-06-10] MEDS: OMEGA-3 ACID ETHYL ESTERS 1 GM CAPSULE PO SCH (09:18)
[2019-06-10] MEDS: TOLTERODINE TARTRATE 1 MG TABLET PO SCH (09:18)
[2019-06-10] MEDS: ASPIRIN 81 MG TABLET, ENT COATED PO SCH (09:18)
[2019-06-10] MEDS: CYCLOSPORINE 0.05% OPH EMULSIO 0.4 ML DROPERETTE OU SCH (09:18)
[2019-06-10] MEDS: APIXABAN 5 MG TABLET PO SCH (09:18)
[2019-06-10] MEDS: FAMOTIDINE 20 MG TABLET PO SCH (09:18)
[2019-06-10] MEDS ORDERED: PRAMIPEXOLE DI-HCL 0.25 MG TABLET PO SCH (10:00)
[2019-06-10] MEDS ORDERED: TOLTERODINE TARTRATE 2 MG PO SCH (10:00)
[2019-06-10] MEDS ORDERED: CEFTRIAXONE 1 GM/D5W RTU 1 GM/50 ML RTUPB IV SCH (10:00)
[2019-06-10] MEDS ORDERED: MAGNESIUM OXIDE 400 MG TABLET PO SCH (10:00)
[2019-06-10] MEDS ORDERED: (PENDING PHARMACY ID) (Magnesium Oxide [Magnesium] 250 MG) PO SCH (10:00)
[2019-06-10] MEDS ORDERED: RANOLAZINE 500 MG TAB.SR.12H PO SCH (10:00)
[2019-06-10] MEDS ORDERED: CEPHALEXIN 500 MG CAPSULE PO SCH (11:30)
[2019-06-10 12:49] VITALS: BP 143/38
--- NOTE | 2019-06-11 13:47 | PDOC DISCHARGE SUMMARY ---
Impression - Admit/DC Date/PCP Admission Date/Primary Care Provider: 06/09/19 13:12 ETHAN MCMAHON MD Discharge Date: 06/10/19 - Discharge Diagnosis (1) Pre-syncope Is this a current diagnosis for this admission?: Yes (2) UTI (urinary tract infection) Is this a current diagnosis for this admission?: Yes (3) Hypertension Is this a current diagnosis for this admission?: Yes (4) Coronary artery disease Is this a current diagnosis for this admission?: Yes (5) GERD (gastroesophageal reflux disease) Is this a current diagnosis for this admission?: Yes - Additional Information Resuscitation Status: Full Code Discharge Diet: As Tolerated Discharge Activity: Activity As Tolerated Referrals: ETHAN MCMAHON MD [Primary Care Provider] - 06/15/19 2:00 pm Prescriptions: Cephalexin [Keflex] 500 mg PO BID 6 Days #12 capsule Home Medications: Apixaban [Eliquis 5 mg Tablet] 5 mg PO Q12 06/09/19 Ascorbic Acid [Vitamin C 500 mg Tablet] 500 mg PO BID 06/09/19 Aspirin [Lo-Dose Aspirin EC] 81 mg PO DAILY 06/09/19 Cetirizine HCl [Zyrtec 10 mg Tablet] 10 mg PO DAILY 06/09/19 Cyanocobalamin (Vitamin B-12) [Vitamin B-12] 1,000 mcg PO DAILY 06/09/19 Cyclosporine 0.05% Oph Emulsio [Restasis 0.05% Opthalmic Droperette] 1 drop OU BID 06/09/19 Docusate Sodium [Colace 100 mg Capsule] 100 mg PO BID 06/09/19 Isosorbide Mononitrate [Isosorbide Mononitrate ER] 120 mg PO QPM 06/09/19 Magnesium Oxide [Magnesium] 250 mg PO DAILY 06/09/19 Nitrofurantoin Macrocrystal [Macrodantin] 100 mg PO DAILY 06/09/19 Nitroglycerin [Nitrolingual] 1 spray SL Q5MP PRN 06/09/19 [place]-3/Dha/Epa/Fish Oil [Fish Oil 1,000 mg Softgel] 1 each PO BID 06/09/19 Pramipexole Di-HCl [Mirapex 0.25 Mg Tablet] 0.25 mg PO DAILY 06/09/19 Ranolazine [Ranexa 500 mg Tab.sr] 500 mg PO DAILY 06/09/19 Tolterodine Tartrate [Tolterodine Tartrate ER] 2 mg PO DAILY 06/09/19 Tramadol HCl [Ultram 50 mg Tablet] 50 mg PO Q12 06/09/19 Ubidecarenone [Coq-10] 200 mg PO BID 06/09/19 Vit A/Vit C/Vit E/Zinc/Copper [Preservision Areds Softgel] 1 each PO BID 06/09/19 l [place]/B Bifidum/B Longum [[employer] Capsule] 1 each PO DAILY 06/09/19 Cephalexin [Keflex] 500 mg PO BID 6 Days #12 capsule 06/10/19 History of Present Illiness History of Present Illness: SUNITA BALLESTEROS is a 84 year old female past medical history of hypertension, CVA, CAD status post CABG and stent placement, presented to ED complaining of lightheadedness. Started having UTI symptoms a week ago and was started on ciprofloxacin by PCP, most of her symptoms have resolved. Patient also had a fall 3 weeks ago and sustained left lower extremity and ankle sprain, was seen by Dr. Graves orthopedic surgeon, x-ray did not show any fracture and ultrasound was negative for any DVT. Has not been able to ambulate properly since then, patient was sitting in chair, was about to go to the restroom, started feeling lightheaded, felt like he was about to pass out, did not lose consciousness, was present, no seizure activity was noticed, did not sustain any trauma, did not fall to the floor. Patient reports a healthy appetite, keeps hydrated, denies any chest pain, shortness of breath, abdominal pain, diarrhea, constipation. EMS arrived and they found her to be bradycardic, 1 dose of atropine was given. In ED EKG showed sinus rhythm, no acute changes, troponins were negative, CBC CMP WNL, except for UA which was positive for leukocyte esterase and nitrates. Hospitalist was consulted for admission. Hospital Course Hospital Course: (1) Pre-syncope Likely due to bradycardia reported by EMS VS dehydration. EKG in ED and quality assurance monitor final shows sinus rhythm. Was admitted to telemetry, fall precaution, cautious hydration guided by volume status. Orthostatic vitals negative. Dealer Card Room Dr. Eugene. An appointment was made for her for a 30-day event monitor placement. (2) UTI (urinary tract infection) Urine culture positive for E. coli pansensitive except for resistant to quinolones (levofloxacin and ciprofloxacin.) Has been on ciprofloxacin for a week, however UA still positive. Was a started on ciprofloxacin by PCP, no cultures were taken. Received 1 dose of IV ceftriaxone. Discharged on Keflex 500 mg p.o. twice daily for another 6 days. (3) Hypertension Normotensive. Restarted home meds. Started on cardiac diet. Advised to follow-up with PCP for readjustment of her antihypertensives. (4) Coronary artery disease Status post 2 stent placement and CABG. Restarted home meds. Outpatient cardiology follow-up. (5) GERD (gastroesophageal reflux disease) H&H remained stable. Denies any hematemesis or melena. Restarted on home meds. Physical Exam Vital Signs: Temp Pulse Resp BP Pulse Ox 97.4 F 61 16 143/38 H 94 06/10/19 12:47 06/10/19 12:47 06/10/19 12:47 06/10/19 12:47 06/10/19 12:47 Intake & Output 06/10/19 06/11/19 06/12/19 06:59 06:59 06:59 Intake Total 2590 135 Output Total 1900 225 Balance 690 -90 Weight 86.2 kg Results Laboratory Results: WBC 4.8 10^3/uL (4.0-10.5) 06/10/19 04:35 RBC 3.26 10^6/uL (3.72-5.28) L 06/10/19 04:35 Hgb 10.1 g/dL (12.0-15.5) L 06/10/19 04:35 Hct 30.1 % (36.0-47.0) L 06/10/19 04:35 MCV 92 fl (80-97) 06/10/19 04:35 MCH 31.1 pg (27.0-33.4) 06/10/19 04:35 MCHC 33.7 g/dL (32.0-36.0) 06/10/19 04:35 RDW 14.0 % (11.5-14.0) 06/10/19 04:35 Plt Count 148 10^3/uL (150-450) L 06/10/19 04:35 Lymph % (Auto) 19.5 % (13-45) 06/10/19 04:35 [place] % (Auto) 10.4 % (3-13) 06/10/19 04:35 Eos % (Auto) 3.0 % (0-6) 06/10/19 04:35 Baso % (Auto) 0.5 % (0-2) 06/10/19 04:35 Absolute Neuts (auto) 3.2 10^3/uL (1.7-8.2) 06/10/19 04:35 Absolute Lymphs (auto) 0.9 10^3/uL (0.5-4.7) 06/10/19 04:35 Absolute Monos (auto) 0.5 10^3/uL (0.1-1.4) 06/10/19 04:35 Absolute Eos (auto) 0.1 10^3/uL (0.0-0.6) 06/10/19 04:35 Absolute Basos (auto) 0.0 10^3/uL (0.0-0.2) 06/10/19 04:35 Seg Neutrophils % 66.6 % (42-78) 06/10/19 04:35 Sodium 137.8 mmol/L (137-145) 06/09/19 16:40 Potassium 4.3 mmol/L (3.6-5.0) 06/09/19 16:40 Chloride 99 mmol/L (98-107) 06/09/19 16:40 Carbon Dioxide 31 mmol/L (22-30) H 06/09/19 16:40 Anion Gap 8 (5-19) 06/09/19 16:40 BUN 21 mg/dL (7-20) H 06/09/19 16:40 Creatinine 1.09 mg/dL (0.52-1.25) 06/09/19 16:40 Est GFR ( Amer) 58 (>60) L 06/09/19 16:40 Est GFR (MDRD) Non-Af 48 (>60) L 06/09/19 16:40 Glucose 96 mg/dL (75-110) 06/09/19 16:40 Calcium 9.4 mg/dL (8.4-10.2) 06/09/19 16:40 Magnesium 1.9 mg/dL (1.6-2.3) 06/10/19 04:35 Total Bilirubin 0.4 mg/dL (0.2-1.3) 06/09/19 11:27 Direct Bilirubin 0.2 mg/dL (0.0-0.4) 06/09/19 11:27 Neonat Total Bilirubin Not Reportable 06/09/19 11:27 Neonat Direct Bilirubin Not Reportable 06/09/19 11:27 Neonat Indirect Bili Not Reportable 06/09/19 11:27 AST 22 U/L (14-36) 06/09/19 11:27 ALT 11 U/L (<35) 06/09/19 11:27 Alkaline Phosphatase 74 U/L (38-126) 06/09/19 11:27 Creatine Kinase 40 U/L (30-135) 06/09/19 11:27 CK-MB (CK-2) 1.00 ng/mL (<4.55) 06/09/19 11:27 Troponin I < 0.012 ng/mL 06/09/19 11:27 Total Protein 6.1 g/dL (6.3-8.2) L 06/09/19 11:27 Albumin 3.6 g/dL (3.5-5.0) 06/09/19 11:27 Urine Color YELLOW 06/09/19 11:44 Urine Appearance SLIGHTLY-CLOUDY 06/09/19 11:44 Urine pH 6.0 (5.0-9.0) 06/09/19 11:44 Ur Specific [place] 1.014 06/09/19 11:44 Urine Protein NEGATIVE mg/dL (NEGATIVE) 06/09/19 11:44 Urine Glucose (UA) NEGATIVE mg/dL (NEGATIVE) 06/09/19 11:44 Urine Ketones NEGATIVE mg/dL (NEGATIVE) 06/09/19 11:44 Urine Blood NEGATIVE (NEGATIVE) 06/09/19 11:44 Urine Nitrite POSITIVE (NEGATIVE) H 06/09/19 11:44 Urine Bilirubin NEGATIVE (NEGATIVE) 06/09/19 11:44 Urine Urobilinogen NEGATIVE mg/dL (<2.0) 06/09/19 11:44 Ur Leukocyte Esterase LARGE (NEGATIVE) H 06/09/19 11:44 Urine WBC (Auto) 111 /HPF 06/09/19 11:44 Urine RBC (Auto) 5 /HPF 06/09/19 11:44 U Hyaline Cast (Auto) 3 /LPF 06/09/19 11:44 Urine Bacteria (Auto) 3+ /HPF 06/09/19 11:44 Urine WBC Clumps FEW /HPF 06/09/19 11:44 Squamous Epi Cells Auto <1 /HPF 06/09/19 11:44 Urine Mucus (Auto) OCC /LPF 06/09/19 11:44 Urine Ascorbic Acid 40 (NEGATIVE) H 06/09/19 11:44 06/09/19 11:27 CK-MB (CK-2) 1.00 Troponin I < 0.012 Stroke Is this a Stroke Patient?: No Acute Heart Failure - Is this a Heart Failure Patient?: No
== END 2019-06-10 13:31 | disposition home or self-care (01) ==
LOC: ER 11:19 → EH 13:12 → 4N 14:54
PROVIDERS: ADMIT Internal Medicine; ATTEND Internal Medicine
DX: R55 Syncope and collapse (principal); N39.0 Urinary tract infection, site not specified; B96.20 Unspecified Escherichia coli [E. coli] as the cause of diseases classified elsewhere; I10 Essential (primary) hypertension; I25.10 Atherosclerotic heart disease of native coronary artery without angina pectoris; K21.9 Gastro-esophageal reflux disease without esophagitis; R00.1 Bradycardia, unspecified; M79.89 Other specified soft tissue disorders; R26.89 Other abnormalities of gait and mobility; E66.9 Obesity, unspecified; M79.662 Pain in left lower leg; I25.2 Old myocardial infarction; M19.90 Unspecified osteoarthritis, unspecified site; I45.10 Unspecified right bundle-branch block; Z79.899 Other long term (current) drug therapy; Z79.82 Long term (current) use of aspirin; Z95.5 Presence of coronary angioplasty implant and graft; Z95.1 Presence of aortocoronary bypass graft; Z91.81 History of falling; Z16.23 Resistance to quinolones and fluoroquinolones; Z82.49 Family history of ischemic heart disease and other diseases of the circulatory system; Z79.02 Long term (current) use of antithrombotics/antiplatelets; Z87.440 Personal history of urinary (tract) infections
CPT/HCPCS: 93005; 99285; 96375; 96365; 36415 ×2; 87040; 87086; 82553; 82550; 83735; 85025 ×2; 87088; 80053; 81001; 84484; 87186; 93971 ×2; 93010; 97530; 97161; 97535; 97165; G0378 ×3; A9270 ×17; J2405; J7030 ×2; J0696; J3490

== ENCOUNTER 2019-08-06 17:53 | Inpatient (IN) | payer MEDICARE, OTHER ==
--- NOTE | 2019-08-06 20:45 | ER Document Report ---
ED GI/ - General Chief Complaint: Nausea/Vomiting/Diarrhea Stated Complaint: DIARRHEAD Time Seen by Provider: 08/06/19 20:17 Primary Care Provider: ETHAN MCMAHON MD [Primary Care Provider] - Follow up as needed Mode of Arrival: Medic Information source: Patient Notes: Patient is a delightful 84-year-old female presenting to the emergency department with chief complaint of nausea, vomiting and diarrhea that began today. Patient reports she felt like she was going to pass out at home but did not. She does report recent treatment for a urinary tract infection, states she recently finished Macrobid. She denies any fevers, chest pain or shortness of breath. She does report pain across her abdomen. She reports history of cardiac bypass with 6 stent placements, hypertension, hyperlipidemia, type 2 diabetes and frequent UTIs. TRAVEL OUTSIDE OF THE [place] IN LAST 30 DAYS: No - Related Data Allergies/Adverse Reactions: levofloxacin [From Levaquin] Allergy (Severe, Verified 09/28/18 03:41) Diarrhea Past Medical History - General Information source: Patient - Social History Smoking Status: Never Smoker Frequency of alcohol use: None Drug Abuse: None Family History: Hypertension, Malignancy Patient has suicidal ideation: No Patient has homicidal ideation: No - Past Medical History Cardiac Medical History: Reports: Hx Coronary Artery Disease, Hx Heart Attack, Hx Hypercholesterolemia, Hx Hypertension Denies: Hx Atrial Fibrillation, Hx Congestive Heart Failure, Hx Peripheral Vascular Disease, Hx Heart Murmur Pulmonary Medical History: Denies: Hx Asthma, Hx Bronchitis, Hx COPD, Hx Pneumonia, Hx Tuberculosis Neurological Medical History: Reports: Hx Cerebrovascular Accident. Denies: Hx Seizures Endocrine Medical History: Denies: Hx Diabetes Mellitus Type 1, Hx Diabetes Mellitus Type 2, Hx Hyperthyroidism, Hx Hypothyroidism Renal/ Medical History: Denies: Hx Peritoneal Dialysis GI Medical History: Reports: Hx Gastroesophageal Reflux Disease. Denies: Hx Cirrhosis, Hx Hepatitis Musculoskeletal Medical History: Reports Hx Arthritis, Denies Hx Gout Skin Medical History: Denies Hx Eczema, Denies Hx Psoriasis Infectious Medical History: Denies: Hx Hepatitis Past Surgical History: Reports: Hx Cardiac Catheterization, Hx Cardiac Surgery - "bypass", Hx Coronary Artery Bypass Graft, Hx Coronary Stent, Hx Hysterectomy, Hx Tubal Ligation. Denies: Hx Appendectomy, Hx Bowel Surgery, Hx Section, Hx Cholecystectomy, Hx Gastric Bypass Surgery, Hx Herniorrhaphy, Hx Mastectomy, Hx Pacemaker, Hx Tonsillectomy - Immunizations Hx Diphtheria, Pertussis, Tetanus Vaccination: No Review of Systems - Review of Systems Constitutional: Weakness EENT: No symptoms reported Cardiovascular: No symptoms reported Respiratory: No symptoms reported Gastrointestinal: Diarrhea, Nausea, Vomiting Genitourinary: No symptoms reported Female Genitourinary: No symptoms reported Musculoskeletal: No symptoms reported Skin: No symptoms reported Hematologic/Lymphatic: No symptoms reported Neurological/Psychological: No symptoms reported Physical Exam - Vital signs Vitals: Resp Pulse Ox 21 H 96 08/06/19 18:00 08/06/19 18:00 - Notes Notes: PHYSICAL EXAMINATION: GENERAL: Well-appearing, well-nourished. HEAD: Atraumatic, normocephalic. EYES: Pupils equal round and reactive to light, extraocular movements intact, conjunctiva are normal. ENT: Nares patent, oropharynx clear without exudates. Moist mucous membranes. NECK: Normal range of motion, supple without lymphadenopathy LUNGS: Breath sounds clear to auscultation bilaterally and equal. No wheezes rales or rhonchi. HEART: Regular rate and rhythm without murmurs ABDOMEN: Soft, nondistended abdomen. Generalized abdominal tenderness to palpat ion. No guarding, no rebound. No masses appreciated. No CVA tenderness. Female : deferred Musculoskeletal: Normal range of motion, no pitting or edema. No cyanosis. NEUROLOGICAL: Cranial nerves grossly intact. Normal speech. Normal sensory, motor exams PSYCH: Normal mood, normal affect. SKIN: Warm, Dry, normal turgor, no rashes or lesions noted. Course - Re-evaluation Re-evalutation: Laboratory 08/06/19 08/06/19 08/06/19 18:20 18:20 23:08 WBC 2.8 L RBC 4.23 Hgb 13.0 Hct 39.3 MCV 93 MCH 30.8 MCHC 33.1 RDW 14.7 H Plt Count 151 Lymph % (Auto) 9.8 L [place] % (Auto) 0.9 L Eos % (Auto) 1.1 Baso % (Auto) 0.4 Absolute Neuts (auto) 2.4 Absolute Lymphs (auto) 0.3 L Absolute Monos (auto) 0.0 L Absolute Eos (auto) 0.0 Absolute Basos (auto) 0.0 Seg Neutrophils % 87.8 H Sodium 142.6 Potassium 3.9 Chloride 103 Carbon Dioxide 27 Anion Gap 13 BUN 31 H Creatinine 1.23 Est GFR ( Amer) 50 L Est GFR (MDRD) Non-Af 42 L Glucose 123 H Calcium 10.7 H Total Bilirubin 0.6 Direct Bilirubin 0.3 Neonat Total Bilirubin Not Reportable Neonat Direct Bilirubin Not Reportable Neonat Indirect Bili Not Reportable AST 35 ALT 13 Alkaline Phosphatase 121 Total Protein 7.6 Albumin 4.4 Lipase 123.0 Urine Color [place] Urine Appearance SLIGHTLY-CLOUDY Urine pH 5.0 Ur Specific [place] 1.020 Urine Protein NEGATIVE Urine Glucose (UA) NEGATIVE Urine Ketones TRACE H Urine Blood NEGATIVE Urine Nitrite NEGATIVE Urine Bilirubin NEGATIVE Urine Urobilinogen 4.0 H Ur Leukocyte Esterase NEGATIVE Urine WBC (Auto) 1 Urine RBC (Auto) 1 U Hyaline Cast (Auto) 4 Squamous Epi Cells Auto 1 Urine Mucus (Auto) RARE Urine Ascorbic Acid 40 H 08/07/19 00:29 Abdomen/Pelvis CT 08/06/19 00:00 IMPRESSION: Marked colitis involving the distal colon extending from the transverse to sigmoid colon. This may be infectious or inflammatory in etiology. Reevaluated patient, patient reports she feels terrible. Patient has had one episode of vomiting here in the emergency department. She does have marked colitis involving the distal colon on CT. Will call for admission on this patient. IV fluids infusing. - Vital Signs Vital signs: Temp Pulse Resp BP Pulse Ox 97.4 F 16 132/57 H 95 08/06/19 19:45 08/07/19 00:10 08/07/19 00:10 08/07/19 00:17 - Laboratory Result Diagrams: 08/06/19 18:20 08/06/19 18:20 Laboratory results interpreted by me: 08/06/19 08/06/19 08/06/19 18:20 18:20 23:08 WBC 2.8 L RDW 14.7 H Lymph % (Auto) 9.8 L [place] % (Auto) 0.9 L Absolute Lymphs (auto) 0.3 L Absolute Monos (auto) 0.0 L Seg Neutrophils % 87.8 H BUN 31 H Est GFR ( Amer) 50 L Est GFR (MDRD) Non-Af 42 L Glucose 123 H Calcium 10.7 H Urine Ketones TRACE H Urine Urobilinogen 4.0 H Urine Ascorbic Acid 40 H Discharge - Discharge Clinical Impression: Colitis, Nausea vomiting and diarrhea Condition: Stable Disposition: ADMITTED INPATIENT Admitting Provider: Julian (Hospitalist) Unit Admitted: Medical Floor Referrals: ETHAN MCMAHON MD [Primary Care Provider] - Follow up as needed
[2019-08-06] MEDS ORDERED: FENTANYL CITRATE INJ/PF 100 MCG/2 ML AMPUL IV ONE (20:48)
[2019-08-06] MEDS ORDERED: ONDANSETRON HCL INJ/PF 4 MG/2 ML SDV IV ONE (20:48)
[2019-08-06 21:10] LABS: ALBUMIN 4.4 g/dL (3.5-5.0); ALKALINE PHOSPHATASE 121 U/L (38-126); ANION GAP 13 (5-19); ASPARTATE AMINO TRANSFERASE 35 U/L (14-36); BILIRUBIN,DIRECT 0.3 mg/dL (0.0-0.4); BILIRUBIN,TOTAL 0.6 mg/dL (0.2-1.3); BLOOD UREA NITROGEN 31 mg/dL (7-20); CALCIUM 10.7 mg/dL (8.4-10.2); CARBON DIOXIDE 27 mmol/L (22-30); CHLORIDE 103 mmol/L (98-107); GLUCOSE 123 mg/dL (75-110); POTASSIUM 3.9 mmol/L (3.6-5.0); TOTAL PROTEIN 7.6 g/dL (6.3-8.2)
[2019-08-06 21:20] LABS: ABSOLUTE LYMPHOCYTES (AUTO) 0.3 10^3/uL (0.5-4.7); ABSOLUTE NEUT (AUTO) 2.4 10^3/uL (1.7-8.2); BASOPHILS % (AUTO) 0.4 % (0-2); EOSINOPHILS % (AUTO) 1.1 % (0-6); HEMATOCRIT 39.3 % (36.0-47.0); LYMPHOCYTES % (AUTO) 9.8 % (13-45); MEAN CORPUSCULAR HEMOGLOBIN 30.8 pg (27.0-33.4); MEAN CORPUSCULAR HGB CONC 33.1 g/dL (32.0-36.0); MEAN CORPUSCULAR VOLUME 93 fl (80-97); MONOCYTES % (AUTO) 0.9 % (3-13); PLATELET COUNT 151 10^3/uL (150-450); RED BLOOD COUNT 4.23 10^6/uL (3.72-5.28); RED CELL DISTRIBUTION WIDTH 14.7 % (11.5-14.0); SEGMENTED NEUTROPHILS % (AUTO) 87.8 % (42-78); TOTAL CELLS COUNTED % (AUTO) 100 %; WHITE BLOOD COUNT 2.8 10^3/uL (4.0-10.5)
[2019-08-06 23:27] LABS: APPEARANCE,URINE SLIGHTLY-CLOUDY; BILIRUBIN,URINE NEGATIVE (NEGATIVE); COLOR,URINE AMBER; GLUCOSE, URINE NEGATIVE (NEGATIVE); KETONES,URINE TRACE mg/dL (NEGATIVE); LEUKOCYTE ESTERASE,URINE NEGATIVE (NEGATIVE); NITRITE,URINE NEGATIVE (NEGATIVE); PROTEIN,URINE NEGATIVE (NEGATIVE)
[2019-08-07] MEDS ORDERED: NORMAL SALINE 1000 ML 1,000 ML IV ONE (00:01)
--- NOTE | 2019-08-07 00:13 | RADIOLOGY REPORT (SQ) ---
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 COMPARISON: 09/30/2018 TECHNIQUE: CT scan of the abdomen and pelvis was performed with IV contrast. This exam was performed according to our departmental dose-optimization program, which includes automated exposure control, adjustment of the mA and/or kV according to patient size and/or use of iterative reconstruction technique. FINDINGS: Mild atelectasis at the lung bases without pleural or pericardial effusions. There is a small hiatal hernia. Multiple calcified splenic granulomas. Unchanged subcentimeter cystic lesion in the pancreatic head. Liver, gallbladder, adrenal glands, and kidneys are unremarkable. There has been a prior hysterectomy. There is marked circumferential wall thickening with mucosal hyperenhancement and surrounding inflammatory stranding involving the transverse, descending, and sigmoid colon. No free air or abscess is seen. Marked atherosclerotic calcifications throughout the aorta. There are mild degenerative changes of the spine. Intraosseous hemangioma of L3. Severe degenerative changes of both hip joints. No abnormal body wall hernia is seen. IMPRESSION: Marked colitis involving the distal colon extending from the transverse to sigmoid colon. This may be infectious or inflammatory in etiology.
[2019-08-07] MEDS ORDERED: MAG HYDROX/AL HYDROX/SIMETH SUSP 30 ML UDCUP PO PRN (00:34)
[2019-08-07] MEDS ORDERED: ONDANSETRON HCL INJ/PF 4 MG/2 ML SDV IV PRN (00:34)
[2019-08-07] MEDS ORDERED: IPRATROPIUM/ALBUTEROL 0.5-2.5 MG/3 ML AMPUL NEB PRN (00:34)
[2019-08-07] MEDS ORDERED: NORMAL SALINE 1000 ML 1,000 ML IV SCH (00:45)
[2019-08-07] MEDS ORDERED: METRONIDAZOLE 500 MG TABLET PO ONE (01:00)
[2019-08-07] MEDS ORDERED: CEFTRIAXONE 1 GM/D5W RTU 1 GM/50 ML RTUPB IV ONE (01:00)
[2019-08-07] MEDS ORDERED: MORPHINE SULFATE 10 MG/ML INJ IV ONE (01:33)
[2019-08-07] MEDS: METRONIDAZOLE 500 MG TABLET PO SCH ×3 (05:45→18:00)
[2019-08-07 06:43] LABS: HEMATOCRIT 32.5 % (36.0-47.0); MEAN CORPUSCULAR HEMOGLOBIN 30.8 pg (27.0-33.4); MEAN CORPUSCULAR HGB CONC 33.5 g/dL (32.0-36.0); MEAN CORPUSCULAR VOLUME 92 fl (80-97); PLATELET COUNT 146 10^3/uL (150-450); RED BLOOD COUNT 3.54 10^6/uL (3.72-5.28); RED CELL DISTRIBUTION WIDTH 14.5 % (11.5-14.0)
[2019-08-07 06:46] LABS: HEMOGLOBIN 10.9 g/dL (12.0-15.5); WHITE BLOOD COUNT 15.9 10^3/uL (4.0-10.5)
--- NOTE | 2019-08-07 06:46 | PDOC H&P ---
History of Present Illness Admission Date/PCP: 08/07/19 01:10 ETHAN MCMAHON MD Patient complains of: Nausea vomiting diarrhea History of Present Illness: SUNITA BALLESTEROS is a 84 year old female with a past medical history of diabetes, dyslipidemia, hypertension, coronary artery bypass and 6 subsequent stents. Patient presents with 8 hours of intractable nausea vomiting diarrhea with abdominal pain. She denies infectious contacts or suspect meals and denies lettuce. She admits recent UTI treatment with Macrobid. She denies chest pain or shortness of breath. In the emergency room she is found to have dehydration, orthostatic hypotension, intractable nausea vomiting and colitis by CT abdomen. She started on symptomatic management, IV fluids and referred to the hospitalist for admission. Past Medical History Cardiac Medical History: Reports: Coronary Artery Disease, Myocardial Infarction, Hyperlipidema, Hypertension Denies: Atrial Fibrillation, Congestive Heart Failure, Peripheral Vascular Disease, Heart Murmur Pulmonary Medical History: Denies: Asthma, Bronchitis, Chronic Obstructive Pulmonary Disease (COPD), Pneumonia, Tuberculosis Neurological Medical History: Denies: Seizures Endocrine Medical History: Denies: Diabetes Mellitus Type 1, Diabetes Mellitus Type 2, Hyperthyroidism, Hypothyroidism GI Medical History: Reports: Gastroesophageal Reflux Disease Denies: Cirrhosis, Hepatitis Musculoskeltal Medical History: Reports: Arthritis Denies: Gout Skin Medical History: Denies: Eczema, Psoriasis Psychiatric Medical History: Denies: Depression Hematology: Denies: Anemia, Bleeding Tendencies Past Surgical History Past Surgical History: Reports: Cardiac Catheterization, Coronary Artery Bypass Graft, Coronary Stent, Hysterectomy, Tubal Ligation Denies: Appendectomy, Section, Cholecystectomy, Gastric Bypass Surgery, Herniorrhaphy, Mastectomy, Pacemaker, Tonsillectomy Social History Information Source: Patient, [facility] Records Lives with: Alone Smoking Status: Never Smoker Electronic Cigarette use?: No Frequency of Alcohol Use: None Hx Recreational Drug Use: No Drugs: None Hx Prescription Drug Abuse: No - Advance Directive Resuscitation Status: Full Code Family History Family History: Hypertension, Malignancy Parental Family History Reviewed: Yes Children Family History Reviewed: Yes Sibling(s) Family History Reviewed.: Yes Medication/Allergy Home Medications: Apixaban [Eliquis 5 mg Tablet] 5 mg PO Q12 06/09/19 Ascorbic Acid [Vitamin C 500 mg Tablet] 500 mg PO BID 06/09/19 Aspirin [Lo-Dose Aspirin EC] 81 mg PO DAILY 06/09/19 Cetirizine HCl [Zyrtec 10 mg Tablet] 10 mg PO DAILY 06/09/19 Cyanocobalamin (Vitamin B-12) [Vitamin B-12] 1,000 mcg PO DAILY 06/09/19 Cyclosporine 0.05% Oph Emulsio [Restasis 0.05% Opthalmic Droperette] 1 drop OU BID 06/09/19 Docusate Sodium [Colace 100 mg Capsule] 100 mg PO BID 06/09/19 Isosorbide Mononitrate [Isosorbide Mononitrate ER] 120 mg PO QPM 06/09/19 Magnesium Oxide [Magnesium] 250 mg PO DAILY 06/09/19 Nitrofurantoin Macrocrystal [Macrodantin] 100 mg PO DAILY 06/09/19 Nitroglycerin [Nitrolingual] 1 spray SL Q5MP PRN 06/09/19 [place]-3/Dha/Epa/Fish Oil [Fish Oil 1,000 mg Softgel] 1 each PO BID 06/09/19 Pramipexole Di-HCl [Mirapex 0.25 Mg Tablet] 0.25 mg PO DAILY 06/09/19 Ranolazine [Ranexa 500 mg Tab.sr] 500 mg PO DAILY 06/09/19 Tolterodine Tartrate [Tolterodine Tartrate ER] 2 mg PO DAILY 06/09/19 Tramadol HCl [Ultram 50 mg Tablet] 50 mg PO Q12 06/09/19 Ubidecarenone [Coq-10] 200 mg PO BID 06/09/19 Vit A/Vit C/Vit E/Zinc/Copper [Preservision Areds Softgel] 1 each PO BID 06/09/19 l [place]/B Bifidum/B Longum [[facility] Capsule] 1 each PO DAILY 06/09/19 Cephalexin [Keflex] 500 mg PO BID 6 Days #12 capsule 06/10/19 Allergies/Adverse Reactions: levofloxacin [From Levaquin] Allergy (Severe, Verified 09/28/18 03:41) Diarrhea Review of Systems Constitutional: ABSENT: chills, fever(s), headache(s), weight gain, weight loss Eyes: ABSENT: visual disturbances Ears: ABSENT: hearing changes Cardiovascular: ABSENT: chest pain, dyspnea on exertion, edema, orthropnea, palpitations Respiratory: ABSENT: cough, hemoptysis Gastrointestinal: ABSENT: abdominal pain, constipation, diarrhea, hematemesis, hematochezia, nausea, vomiting Genitourinary: ABSENT: dysuria, hematuria Musculoskeletal: ABSENT: joint swelling Integumentary: ABSENT: rash, wounds Neurological: ABSENT: abnormal gait, abnormal speech, confusion, dizziness, focal weakness, syncope Psychiatric: ABSENT: anxiety, depression, homidical ideation, suicidal ideation Endocrine: ABSENT: cold intolerance, heat intolerance, polydipsia, polyuria Hematologic/Lymphatic: ABSENT: easy bleeding, easy bruising Physical Exam Vital Signs: Temp Pulse Resp BP Pulse Ox 98.2 F 80 15 105/56 L 96 08/07/19 04:25 08/07/19 04:25 08/07/19 04:25 08/07/19 04:25 08/07/19 04:25 Intake & Output 08/05/19 08/06/19 08/07/19 11:59 11:59 11:59 Intake Total 1050 Output Total 400 Balance 650 Weight 87.1 kg General appearance: PRESENT: no acute distress, well-developed, well-nourished Head exam: PRESENT: atraumatic, normocephalic Eye exam: PRESENT: conjunctiva pink, EOMI, PERRLA. ABSENT: scleral icterus Ear exam: PRESENT: normal external ear exam Mouth exam: PRESENT: dry mucosa, tongue midline Neck exam: ABSENT: carotid bruit, JVD, lymphadenopathy, thyromegaly Respiratory exam: PRESENT: clear to auscultation wojciech. ABSENT: rales, rhonchi, wheezes Cardiovascular exam: PRESENT: RRR. ABSENT: diastolic murmur, rubs, systolic murmur Pulses: PRESENT: normal dorsalis pedis pul Vascular exam: PRESENT: normal capillary refill GI/Abdominal exam: PRESENT: distended, hyperactive bowel sounds, normal bowel sounds, soft. ABSENT: guarding, mass, organolmegaly, rebound, tenderness Rectal exam: PRESENT: deferred Extremities exam: PRESENT: full ROM. ABSENT: calf tenderness, clubbing, pedal edema Neurological exam: PRESENT: alert, awake, oriented to person, oriented to place, oriented to time, oriented to situation, CN II-XII grossly intact. ABSENT: motor sensory deficit Psychiatric exam: PRESENT: appropriate affect, normal mood. ABSENT: homicidal ideation, suicidal ideation Skin exam: PRESENT: dry, intact, warm. ABSENT: cyanosis, rash Results Laboratory Results: 08/06/19 08/06/19 08/06/19 18:20 18:20 23:08 WBC 2.8 L RBC 4.23 Hgb 13.0 Hct 39.3 MCV 93 MCH 30.8 MCHC 33.1 RDW 14.7 H Plt Count 151 Seg Neutrophils % 87.8 H Sodium 142.6 Potassium 3.9 Chloride 103 Carbon Dioxide 27 Anion Gap 13 BUN 31 H Creatinine 1.23 Est GFR ( Amer) 50 L Glucose 123 H Calcium 10.7 H Total Bilirubin 0.6 AST 35 Alkaline Phosphatase 121 Total Protein 7.6 Albumin 4.4 Lipase 123.0 Urine Color HAR[place]ON Urine Appearance SLIGHTLY-CLOUDY Urine pH 5.0 Ur Specific [place] 1.020 Urine Protein NEGATIVE Urine Glucose (UA) NEGATIVE Urine Ketones TRACE H Urine Blood NEGATIVE Urine Nitrite NEGATIVE Ur Leukocyte Esterase NEGATIVE Urine WBC (Auto) 1 Urine RBC (Auto) 1 Impressions: Abdomen/Pelvis CT 08/06/19 00:00 IMPRESSION: Marked colitis involving the distal colon extending from the transverse to sigmoid colon. This may be infectious or inflammatory in etiology. Assessment and Plan - Diagnosis (1) Enterocolitis Is this a current diagnosis for this admission?: Yes Plan: Presumed infectious, empiric treatment with Rocephin and Flagyl, follow-up blood and CBC (2) Intractable vomiting Is this a current diagnosis for this admission?: Yes Plan: Secondary to #1, symptomatic management, IV hydration (3) Abdominal pain Is this a current diagnosis for this admission?: Yes Plan: Secondary to #1, symptom medic management, trial clear liquids as tolerated. - Time Time Spent with patient: 15-24 minutes - Inpatient Certification Medical Necessity: Need Close Monitoring Due to Risk of Patient Decompensation
[2019-08-07 06:59] LABS: ABSOLUTE LYMPHOCYTES# (MANUAL) 0.3 10^3/uL (0.5-4.7); BAND NEUTROPHILS % (MANUAL) 7 % (3-5); BASOPHILS % (MANUAL) 0 % (0-2); EOSINOPHILS % (MANUAL) 0 % (0-6); LYMPHOCYTES % (MANUAL) 2 % (13-45); MONOCYTES % (MANUAL) 6 % (3-13); SEGMENTED NEUTROPHILS % (MAN) 85 % (42-78); TOTAL CELLS COUNTED 100
[2019-08-07 07:00] LABS: PLATELET COMMENT DECREASED; RBC MORPHOLOGY COMMENT NORMO-CYTIC/CHROMIC; TOXIC GRANULATION 1+
[2019-08-07 07:04] LABS: ANION GAP 10 (5-19); BLOOD UREA NITROGEN 32 mg/dL (7-20); CALCIUM 8.4 mg/dL (8.4-10.2); CARBON DIOXIDE 23 mmol/L (22-30); CHLORIDE 103 mmol/L (98-107); GLUCOSE 118 mg/dL (75-110); POTASSIUM 4.3 mmol/L (3.6-5.0)
[2019-08-07] MEDS ORDERED: TRAMADOL HCL 50 MG TABLET PO PRN (11:11)
[2019-08-07] MEDS: APIXABAN 5 MG TABLET PO SCH ×2 (11:55→21:59)
[2019-08-07] MEDS: NORMAL SALINE 1000 ML 1,000 ML IV PRN (14:21)
--- NOTE | 2019-08-07 16:30 | PDOC PROGRESS REPORT ---
Subjective Progress Note for:: 08/07/19 Subjective:: Patient is a-year-old female with past medical history of diabetes, dyslipidemia, hypertension, coronary artery bypass and 6 subsequent stents who was admitted 08/07/2019 for Enterocolitis. The patient was seen on morning rounds. She is found resting in bed comfortably on room air. She is awake and oriented to self, place, and situation. She tells me that she is feeling better today. She denies fever, chills, chest pain, palpitations, dyspnea, cough. She sp ecifically denies abdominal discomfort, nausea and vomiting. She did have a loose bowel movement again this morning. She has no new questions or concerns. No concerns per nursing. Reason For Visit: ENTEROCOLITIS,NAUSEA,VOMITING AND DIARRHEA Physical Exam Vital Signs: Temp Pulse Resp BP Pulse Ox 98.0 F 82 16 96/43 L 96 08/07/19 11:21 08/07/19 15:59 08/07/19 15:59 08/07/19 11:21 08/07/19 15:59 Intake & Output 08/06/19 08/07/19 08/08/19 06:59 06:59 06:59 Intake Total 1050 Output Total 400 Balance 650 Weight 87.1 kg General appearance: PRESENT: no acute distress, cooperative, hard of hearing, obese, well-developed, well-nourished Head exam: PRESENT: atraumatic, normocephalic Eye exam: PRESENT: conjunctiva pink, EOMI, PERRLA. ABSENT: scleral icterus Ear exam: PRESENT: normal external ear exam Mouth exam: PRESENT: moist, tongue midline Respiratory exam: PRESENT: clear to auscultation wojciech, symmetrical, unlabored. ABSENT: rales, rhonchi, wheezes Cardiovascular exam: PRESENT: RRR, +S1, +S2. ABSENT: diastolic murmur, rubs, systolic murmur Pulses: PRESENT: normal dorsalis pedis pul Vascular exam: PRESENT: normal capillary refill GI/Abdominal exam: PRESENT: hyperactive bowel sounds, soft. ABSENT: distended, guarding, mass, organolmegaly, rebound, tenderness Rectal exam: PRESENT: deferred Extremities exam: PRESENT: full ROM. ABSENT: calf tenderness, clubbing, pedal edema Neurological exam: PRESENT: alert, awake, oriented to person, oriented to place, oriented to situation, CN II-XII grossly intact. ABSENT: motor sensory deficit Psychiatric exam: PRESENT: appropriate affect, normal mood. ABSENT: homicidal ideation, suicidal ideation Skin exam: PRESENT: dry, intact, warm. ABSENT: cyanosis, rash Results Laboratory Results: 08/07/19 06:18 08/07/19 06:18 08/06/19 08/06/19 08/06/19 18:20 18:20 23:08 WBC 2.8 L RBC 4.23 Hgb 13.0 Hct 39.3 MCV 93 MCH 30.8 MCHC 33.1 RDW 14.7 H Plt Count 151 Seg Neutrophils % 87.8 H Sodium 142.6 Potassium 3.9 Chloride 103 Carbon Dioxide 27 Anion Gap 13 BUN 31 H Creatinine 1.23 Est GFR ( Amer) 50 L Glucose 123 H Calcium 10.7 H Total Bilirubin 0.6 AST 35 Alkaline Phosphatase 121 Total Protein 7.6 Albumin 4.4 Lipase 123.0 Urine Color HAROON Urine Appearance SLIGHTLY-CLOUDY Urine pH 5.0 Ur Specific [place] 1.020 Urine Protein NEGATIVE Urine Glucose (UA) NEGATIVE Urine Ketones TRACE H Urine Blood NEGATIVE Urine Nitrite NEGATIVE Ur Leukocyte Esterase NEGATIVE Urine WBC (Auto) 1 Urine RBC (Auto) 1 08/07/19 08/07/19 06:18 06:18 WBC 15.9 H D RBC 3.54 L Hgb 10.9 L D Hct 32.5 L MCV 92 MCH 30.8 MCHC 33.5 RDW 14.5 H Plt Count 146 L Seg Neutrophils % Not Reportable Sodium 135.5 L Potassium 4.3 Chloride 103 Carbon Dioxide 23 Anion Gap 10 BUN 32 H Creatinine 1.25 Est GFR ( Amer) 49 L Glucose 118 H Calcium 8.4 Total Bilirubin AST Alkaline Phosphatase Total Protein Albumin Lipase Urine Color Urine Appearance Urine pH Ur Specific [place] Urine Protein Urine Glucose (UA) Urine Ketones Urine Blood Urine Nitrite Ur Leukocyte Esterase Urine WBC (Auto) Urine RBC (Auto) Impressions: Abdomen/Pelvis CT 08/06/19 00:00 IMPRESSION: Marked colitis involving the distal colon extending from the transverse to sigmoid colon. This may be infectious or inflammatory in etiology. Assessment and Plan - Diagnosis (1) Enterocolitis Is this a current diagnosis for this admission?: Yes Plan: Improved; now tolerating a clear liquid diet without nausea, vomiting, or ab dominal discomfort. Does continue to have loose stools. Leukocytosis; WBC is up to 15.9 today. Remains afebrile. Presumed infectious Blood cultures pending Patient is admitted to the medical floor. She is receiving empiric treatment with Rocephin and Flagyl Continue gentle IV fluids. Follow-up CBC. (2) Abdominal pain Is this a current diagnosis for this admission?: Yes Plan: Significantly improved. Secondary to #1 Symptomatic management; analgesics and antiemetics as needed. Tolerated clear liquid diet well; will advance to a soft, low residue diet today. (3) Intractable vomiting Is this a current diagnosis for this admission?: Yes Plan: Resolved. Secondary to #1 Antiemetics as needed. Advancing diet today. (4) CAD (coronary artery disease) Qualifiers: Coronary Disease-Associated Artery/Lesion type: bypass graft [place] vs. transplanted heart: tribe heart Associated angina: without angina Qualified Code(s): I25.810 - Atherosclerosis of coronary artery bypass graft(s) without angina pectoris Is this a current diagnosis for this admission?: Yes Plan: Without chest pain at this time. We will continue the patient's home medication regiment of Eliquis, aspirin, R anexa, Mirapex, and isosorbide. - Time Time Spent with patient: 15-24 minutes Medications reviewed and adjusted accordingly: Yes Anticipated discharge: Home Within: within 48 hours
--- NOTE | 2019-08-07 17:34 | EKG REPORT ---
SEVERITY:- ABNORMAL ECG - SINUS RHYTHM INCOMPLETE RIGHT BUNDLE BRANCH BLOCK PROBABLE INFERIOR INFARCT, AGE INDETERMINATE : Confirmed by: Brennen Hancock MD 07-Aug-2019 17:33:56
[2019-08-07] MEDS: ISOSORBIDE MONONITRATE 60 MG TAB.ER.24H PO SCH (22:00)
[2019-08-07] MEDS: CYCLOSPORINE 0.05% OPH EMULSIO 0.4 ML DROPERETTE OU SCH (22:00)
[2019-08-07] MEDS ORDERED: CEFTRIAXONE 1 GM/D5W RTU 1 GM/50 ML RTUPB IV SCH (22:00)
[2019-08-07] MEDS: PRAMIPEXOLE DI-HCL 0.25 MG TABLET PO SCH (22:00)
[2019-08-08] MEDS: METRONIDAZOLE 500 MG TABLET PO SCH ×4 (00:31→17:51)
[2019-08-08] MEDS: NORMAL SALINE 1000 ML 1,000 ML IV PRN ×3 (00:31→22:15)
[2019-08-08 05:46] LABS: ABSOLUTE EOSINOPHILS # (AUTO) 0.2 10^3/uL (0.0-0.6); ABSOLUTE LYMPHOCYTES (AUTO) 0.7 10^3/uL (0.5-4.7); ABSOLUTE MONOCYTES (AUTO) 0.6 10^3/uL (0.1-1.4); ABSOLUTE NEUT (AUTO) 5.5 10^3/uL (1.7-8.2); BASOPHILS % (AUTO) 0.4 % (0-2); EOSINOPHILS % (AUTO) 3.4 % (0-6); HEMATOCRIT 28.7 % (36.0-47.0); HEMOGLOBIN 9.8 g/dL (12.0-15.5); LYMPHOCYTES % (AUTO) 9.5 % (13-45); MEAN CORPUSCULAR HEMOGLOBIN 31.4 pg (27.0-33.4); MEAN CORPUSCULAR HGB CONC 34.2 g/dL (32.0-36.0); MEAN CORPUSCULAR VOLUME 92 fl (80-97); MONOCYTES % (AUTO) 8.9 % (3-13); PLATELET COUNT 124 10^3/uL (150-450); RED BLOOD COUNT 3.13 10^6/uL (3.72-5.28); RED CELL DISTRIBUTION WIDTH 14.8 % (11.5-14.0); SEGMENTED NEUTROPHILS % (AUTO) 77.8 % (42-78); TOTAL CELLS COUNTED % (AUTO) 100 %; WHITE BLOOD COUNT 7.1 10^3/uL (4.0-10.5)
[2019-08-08 06:11] LABS: ANION GAP 8 (5-19); BLOOD UREA NITROGEN 37 mg/dL (7-20); CALCIUM 7.7 mg/dL (8.4-10.2); CARBON DIOXIDE 22 mmol/L (22-30); CHLORIDE 108 mmol/L (98-107); GLUCOSE 87 mg/dL (75-110); POTASSIUM 4.2 mmol/L (3.6-5.0)
[2019-08-08] MEDS ORDERED: (PENDING PHARMACY ID) (Magnesium Oxide [Magnesium] 250 MG) PO SCH (10:00)
[2019-08-08] MEDS: ASPIRIN 81 MG TABLET, ENT COATED PO SCH (10:48)
[2019-08-08] MEDS: CETIRIZINE 10 MG TABLET PO SCH (10:48)
[2019-08-08] MEDS: APIXABAN 5 MG TABLET PO SCH ×2 (10:48→22:15)
[2019-08-08] MEDS: RANOLAZINE 500 MG TAB.SR.12H PO SCH (10:48)
[2019-08-08] MEDS: CYCLOSPORINE 0.05% OPH EMULSIO 0.4 ML DROPERETTE OU SCH ×2 (10:49→17:52)
--- NOTE | 2019-08-08 13:14 | PDOC PROGRESS REPORT ---
Subjective Progress Note for:: 08/08/19 Subjective:: Patient is a-year-old female with past medical history of diabetes, dyslipidemia, hypertension, coronary artery bypass and 6 subsequent stents who was admitted 08/07/2019 for Enterocolitis. The patient was seen on morning rounds with family members present. She is f ound resting in bed comfortably on room air. She is awake and oriented to self, place, and situation. She tells me that she is feeling better today. She denies fever, chills, chest pain, palpitations, dyspnea, cough. She specifically denies abdominal discomfort, nausea and vomiting. She did have a loose bowel movement again this morning. She has no new questions or concerns. No concerns per nursing. Reason For Visit: COLITIS Physical Exam Vital Signs: Temp Pulse Resp BP Pulse Ox 98.0 F 76 18 117/57 L 97 08/08/19 07:55 08/08/19 07:55 08/08/19 07:55 08/08/19 07:55 08/08/19 07:55 Intake & Output 08/07/19 08/08/19 08/09/19 06:59 06:59 06:59 Intake Total 1050 1390 1100 Output Total 400 200 600 Balance 650 1190 500 Weight 87.1 kg 89.2 kg General appearance: PRESENT: no acute distress, hard of hearing, obese, well- developed, well-nourished Head exam: PRESENT: atraumatic, normocephalic Eye exam: PRESENT: conjunctiva pink, EOMI, PERRLA. ABSENT: scleral icterus Ear exam: PRESENT: normal external ear exam Mouth exam: PRESENT: moist, tongue midline Teeth exam: PRESENT: poor dentation Neck exam: ABSENT: carotid bruit, JVD, lymphadenopathy, thyromegaly Respiratory exam: PRESENT: clear to auscultation wojciech, symmetrical, unlabored. ABSENT: rales, rhonchi, wheezes Cardiovascular exam: PRESENT: RRR, +S1, +S2. ABSENT: diastolic murmur, rubs, systolic murmur Pulses: PRESENT: normal dorsalis pedis pul Vascular exam: PRESENT: normal capillary refill GI/Abdominal exam: PRESENT: normal bowel sounds, soft. ABSENT: distended, guarding, mass, organolmegaly, rebound, tenderness Rectal exam: PRESENT: deferred Extremities exam: PRESENT: full ROM. ABSENT: calf tenderness, clubbing, pedal edema Neurological exam: PRESENT: alert, awake, oriented to person, oriented to place, oriented to time, oriented to situation, CN II-XII grossly intact. ABSENT: motor sensory deficit Psychiatric exam: PRESENT: appropriate affect, normal mood. ABSENT: homicidal ideation, suicidal ideation Skin exam: PRESENT: dry, intact, warm. ABSENT: cyanosis, rash Results Laboratory Results: 08/08/19 04:53 08/08/19 04:53 08/08/19 08/08/19 04:53 04:53 WBC 7.1 RBC 3.13 L Hgb 9.8 L Hct 28.7 L MCV 92 MCH 31.4 MCHC 34.2 RDW 14.8 H Plt Count 124 L Seg Neutrophils % 77.8 Sodium 137.8 Potassium 4.2 Chloride 108 H Carbon Dioxide 22 Anion Gap 8 BUN 37 H Creatinine 1.29 H Est GFR ( Amer) 48 L Glucose 87 Calcium 7.7 L Impressions: Abdomen/Pelvis CT 08/06/19 00:00 IMPRESSION: Marked colitis involving the distal colon extending from the transverse to sigmoid colon. This may be infectious or inflammatory in etiology. Assessment and Plan - Diagnosis (1) Enterocolitis Is this a current diagnosis for this admission?: Yes Plan: Improved; now tolerating a bland diet without nausea, vomiting, or abdominal discomfort. Decreased loose stools. Leukocytosis is resolved. Remains afebrile. Presumed infectious Blood cultures negative to date Patient is admitted to the medical floor. She is receiving empiric treatment with Rocephin and p.o Flagyl; will transition to p.o. ceftin and flagyl today Continue gentle IV fluids. Advance to regular diet Follow-up CBC. (2) Abdominal pain Is this a current diagnosis for this admission?: Yes Plan: Resolved. Secondary to #1 Symptomatic management; analgesics and antiemetics as needed. Advance diet today (3) Intractable vomiting Is this a current diagnosis for this admission?: Yes Plan: Resolved. Secondary to #1 Antiemetics as needed. Advancing diet today. (4) CAD (coronary artery disease) Qualifiers: Coronary Disease-Associated Artery/Lesion type: bypass graft [place] vs. transplanted heart: [place] tribe heart Associated angina: without angina Qualified Code(s): I25.810 - Atherosclerosis of coronary artery bypass graft(s) without angina pectoris Is this a current diagnosis for this admission?: Yes Plan: Without chest pain at this time. We will continue the patient's home medication regiment of Eliquis, aspirin, Ranexa, Mirapex, and isosorbide. (5) Urinary retention Is this a current diagnosis for this admission?: Yes Plan: Chronic. Continue home dose Flomax. Bladder scan every 8 hours and straight cath as needed. Encourage mobility/out of bed positioning on commode for voids (6) Obesity (BMI 30-39.9) Is this a current diagnosis for this admission?: Yes Plan: BMI of 36 Dietary discretion and lifestyle modification are advised. - Time Time Spent with patient: 25-34 minutes Medications reviewed and adjusted accordingly: Yes Anticipated discharge: Home with Homehealth Within: within 24 hours
[2019-08-08] MEDS: PRAMIPEXOLE DI-HCL 0.25 MG TABLET PO SCH (17:51)
[2019-08-08] MEDS: TAMSULOSIN HCL 0.4 MG CAP.SR.24H PO SCH (17:51)
[2019-08-08] MEDS: CEFUROXIME 250 MG TABLET PO SCH (17:51)
[2019-08-08] MEDS: ISOSORBIDE MONONITRATE 60 MG TAB.ER.24H PO SCH (17:51)
[2019-08-08 18:11] LABS: HEMATOCRIT 28.7 % (36.0-47.0); HEMOGLOBIN 9.6 g/dL (12.0-15.5); MEAN CORPUSCULAR HEMOGLOBIN 31.1 pg (27.0-33.4); MEAN CORPUSCULAR HGB CONC 33.5 g/dL (32.0-36.0); MEAN CORPUSCULAR VOLUME 93 fl (80-97); PLATELET COUNT 123 10^3/uL (150-450); RED CELL DISTRIBUTION WIDTH 14.6 % (11.5-14.0); WHITE BLOOD COUNT 6.6 10^3/uL (4.0-10.5)
[2019-08-09] MEDS: METRONIDAZOLE 500 MG TABLET PO SCH ×4 (00:13→17:40)
[2019-08-09 05:49] LABS: HEMOGLOBIN 9.9 g/dL (12.0-15.5); MEAN CORPUSCULAR HEMOGLOBIN 31.2 pg (27.0-33.4); MEAN CORPUSCULAR HGB CONC 34.2 g/dL (32.0-36.0); MEAN CORPUSCULAR VOLUME 91 fl (80-97); PLATELET COUNT 115 10^3/uL (150-450); RED BLOOD COUNT 3.19 10^6/uL (3.72-5.28); RED CELL DISTRIBUTION WIDTH 14.8 % (11.5-14.0); WHITE BLOOD COUNT 5.2 10^3/uL (4.0-10.5)
[2019-08-09 06:04] LABS: ANION GAP 7 (5-19); BLOOD UREA NITROGEN 22 mg/dL (7-20); CARBON DIOXIDE 25 mmol/L (22-30); CHLORIDE 109 mmol/L (98-107); GLUCOSE 92 mg/dL (75-110); POTASSIUM 3.8 mmol/L (3.6-5.0)
[2019-08-09] MEDS: NORMAL SALINE 1000 ML 1,000 ML IV PRN ×2 (08:26→21:08)
[2019-08-09] MEDS: CYCLOSPORINE 0.05% OPH EMULSIO 0.4 ML DROPERETTE OU SCH ×2 (11:32→17:39)
[2019-08-09] MEDS: CEFUROXIME 250 MG TABLET PO SCH ×2 (11:33→17:40)
[2019-08-09] MEDS: RANOLAZINE 500 MG TAB.SR.12H PO SCH (11:33)
[2019-08-09] MEDS: ASPIRIN 81 MG TABLET, ENT COATED PO SCH (11:33)
[2019-08-09] MEDS: MAGNESIUM OXIDE 400 MG TABLET PO SCH (11:34)
[2019-08-09] MEDS: CETIRIZINE 10 MG TABLET PO SCH (11:35)
[2019-08-09] MEDS: APIXABAN 5 MG TABLET PO SCH ×2 (11:35→21:16)
[2019-08-09 14:24] LABS: HEMATOCRIT 28.5 % (36.0-47.0); HEMOGLOBIN 9.9 g/dL (12.0-15.5); MEAN CORPUSCULAR HEMOGLOBIN 31.4 pg (27.0-33.4); MEAN CORPUSCULAR HGB CONC 34.6 g/dL (32.0-36.0); MEAN CORPUSCULAR VOLUME 91 fl (80-97); PLATELET COUNT 126 10^3/uL (150-450); RED BLOOD COUNT 3.14 10^6/uL (3.72-5.28); RED CELL DISTRIBUTION WIDTH 14.4 % (11.5-14.0); WHITE BLOOD COUNT 5.4 10^3/uL (4.0-10.5)
--- NOTE | 2019-08-09 14:28 | PDOC PROGRESS REPORT ---
Subjective Progress Note for:: 08/09/19 Subjective:: Patient is a-year-old female with past medical history of diabetes, dyslipidemia, hypertension, coronary artery bypass and 6 subsequent stents who was admitted 08/07/2019 for Enterocolitis. The patient was seen on morning rounds with family members present. She is f ound resting in bed comfortably on room air. She is awake and oriented to self, place, and situation. She tells me that she is feeling better today. Does continue to have loose stools; unfortunately, now with delisa blood. She denies fever, chills, chest pain, palpitations, dyspnea, cough. She sp ecifically denies abdominal discomfort, nausea and vomiting. She has no new questions or concerns. No concerns per nursing. Reason For Visit: COLITIS Physical Exam Vital Signs: Temp Pulse Resp BP Pulse Ox 98.2 F 70 19 166/90 H 94 08/09/19 08:00 08/09/19 08:00 08/09/19 08:00 08/09/19 08:00 08/09/19 08:00 Intake & Output 08/08/19 08/09/19 08/10/19 06:59 06:59 06:59 Intake Total 1390 4056 1000 Output Total 200 2950 Balance 1190 1106 1000 Weight 89.2 kg 90.3 kg General appearance: PRESENT: no acute distress, hard of hearing, obese, well- developed, well-nourished Head exam: PRESENT: atraumatic, normocephalic Eye exam: PRESENT: conjunctiva pink, EOMI, PERRLA. ABSENT: scleral icterus Ear exam: PRESENT: normal external ear exam Mouth exam: PRESENT: moist, tongue midline Teeth exam: PRESENT: poor dentation Respiratory exam: PRESENT: clear to auscultation wojciech, symmetrical, unlabored. ABSENT: rales, rhonchi, wheezes Cardiovascular exam: PRESENT: RRR, +S1, +S2. ABSENT: diastolic murmur, rubs, systolic murmur Pulses: PRESENT: normal dorsalis pedis pul Vascular exam: PRESENT: normal capillary refill GI/Abdominal exam: PRESENT: normal bowel sounds, soft. ABSENT: distended, guard ing, mass, organolmegaly, rebound, tenderness Rectal exam: PRESENT: deferred Extremities exam: PRESENT: full ROM. ABSENT: calf tenderness, clubbing, pedal edema Neurological exam: PRESENT: alert, awake, oriented to person, oriented to place, oriented to time, oriented to situation, CN II-XII grossly intact. ABSENT: motor sensory deficit Psychiatric exam: PRESENT: appropriate affect, normal mood. ABSENT: homicidal ideation, suicidal ideation Skin exam: PRESENT: dry, intact, warm. ABSENT: cyanosis, rash Results Laboratory Results: 08/09/19 05:09 08/09/19 05:09 08/08/19 08/08/19 08/09/19 17:55 17:55 05:09 WBC 6.6 5.2 RBC 3.10 L 3.19 L Hgb 9.6 L 9.9 L Hct 28.7 L 29.0 L MCV 93 91 MCH 31.1 31.2 MCHC 33.5 34.2 RDW 14.6 H 14.8 H Plt Count 123 L 115 L Sodium Potassium Chloride Carbon Dioxide Anion Gap BUN Creatinine Est GFR ( Amer) Glucose Calcium Blood Type O POSITIVE Antibody Screen NEGATIVE 08/09/19 05:09 WBC RBC Hgb Hct MCV MCH MCHC RDW Plt Count Sodium 140.6 Potassium 3.8 Chloride 109 H Carbon Dioxide 25 Anion Gap 7 BUN 22 H Creatinine 1.03 Est GFR ( Amer) > 60 Glucose 92 Calcium 8.0 L Blood Type Antibody Screen Impressions: Abdomen/Pelvis CT 08/06/19 00:00 IMPRESSION: Marked colitis involving the distal colon extending from the transverse to sigmoid colon. This may be infectious or inflammatory in etiology. Assessment and Plan - Diagnosis (1) Enterocolitis Is this a current diagnosis for this admission?: Yes Plan: Improved; now tolerating a bland diet without nausea, vomiting, or abdominal discomfort. Now with large volume bloody stools per nursing. Leukocytosis is resolved. Remains afebrile. Presumed infectious Blood cultures negative to date Serial CBCs Patient is admitted to the medical floor. Continue p.o. ceftin and flagyl today Continue gentle IV fluids. Advance to regular diet Consider GI or Surgical evaluation if bloody stools persist/worsen or patient develops clinically significant anemia Consider repeat imaging (2) Abdominal pain Is this a current diagnosis for this admission?: Yes Plan: Resolved. Secondary to #1 Symptomatic management; analgesics and antiemetics as needed. Advance diet today (3) Intractable vomiting Is this a current diagnosis for this admission?: Yes Plan: Resolved. Secondary to #1 Antiemetics as needed. Advancing diet today. (4) CAD (coronary artery disease) Qualifiers: Coronary Disease-Associated Artery/Lesion type: bypass graft [place] vs. transplanted heart: [place] heart Associated angina: without angina Qualified Code(s): I25.810 - Atherosclerosis of coronary artery bypass graft(s) without angina pectoris Is this a current diagnosis for this admission?: Yes Plan: Without chest pain at this time. We will continue the patient's home medication regiment of Eliquis, aspirin, Ranexa, Mirapex, and isosorbide. (5) Urinary retention Is this a current diagnosis for this admission?: Yes Plan: Chronic. Continue home dose Flomax. Mccauley catheter. Follow up with established urologist as an outpatient (6) Obesity (BMI 30-39.9) Is this a current diagnosis for this admission?: Yes Plan: BMI of 36 Dietary discretion and lifestyle modification are advised. (7) GI bleed Is this a current diagnosis for this admission?: Yes Plan: Lower GI bleed; likely secondary to colitis. Hgb so far stable. Increased volume of bright red blood output today per nursing. Will monitor overnight with serial labs. Transfuse as needed. Considers GI/Surgical consultation if persists/worsens - Time Time Spent with patient: 25-34 minutes Medications reviewed and adjusted accordingly: Yes Anticipated discharge: Home with Homehealth Within: within 48 hours - Inpatient Certification Based on my medical assessment, after consideration of the patient's comorbidities, presenting symptoms, or acuity I expect that the services needed warrant INPATIENT care.: Yes I certify that my determination is in accordance with my understanding of Medicare's requirements for reasonable and necessary INPATIENT services [42 CFR 412.3e].: Yes Medical Necessity: Need Close Monitoring Due to Risk of Patient Decompensation, Need For IV Fluids, Risk of Diagnosis Which Will Require Inpatient Eval /Care/Monitoring
[2019-08-09] MEDS: PRAMIPEXOLE DI-HCL 0.25 MG TABLET PO SCH (17:39)
[2019-08-09] MEDS: TAMSULOSIN HCL 0.4 MG CAP.SR.24H PO SCH (17:40)
[2019-08-09] MEDS: ISOSORBIDE MONONITRATE 60 MG TAB.ER.24H PO SCH (17:40)
[2019-08-09 22:31] LABS: HEMATOCRIT 26.7 % (36.0-47.0); HEMOGLOBIN 9.4 g/dL (12.0-15.5); MEAN CORPUSCULAR HEMOGLOBIN 32.1 pg (27.0-33.4); MEAN CORPUSCULAR HGB CONC 35.1 g/dL (32.0-36.0); MEAN CORPUSCULAR VOLUME 91 fl (80-97); PLATELET COUNT 127 10^3/uL (150-450); RED BLOOD COUNT 2.92 10^6/uL (3.72-5.28); RED CELL DISTRIBUTION WIDTH 14.5 % (11.5-14.0); WHITE BLOOD COUNT 5.1 10^3/uL (4.0-10.5)
[2019-08-10] MEDS: METRONIDAZOLE 500 MG TABLET PO SCH ×4 (00:30→17:10)
[2019-08-10 05:27] LABS: HEMATOCRIT 25.4 % (36.0-47.0); HEMOGLOBIN 8.6 g/dL (12.0-15.5); MEAN CORPUSCULAR HGB CONC 33.9 g/dL (32.0-36.0); MEAN CORPUSCULAR VOLUME 91 fl (80-97); PLATELET COUNT 119 10^3/uL (150-450); RED BLOOD COUNT 2.78 10^6/uL (3.72-5.28); RED CELL DISTRIBUTION WIDTH 14.6 % (11.5-14.0); WHITE BLOOD COUNT 4.7 10^3/uL (4.0-10.5)
[2019-08-10] MEDS: NORMAL SALINE 1000 ML 1,000 ML IV PRN (05:43)
[2019-08-10 05:56] LABS: ANION GAP 5 (5-19); BLOOD UREA NITROGEN 16 mg/dL (7-20); CALCIUM 7.6 mg/dL (8.4-10.2); CARBON DIOXIDE 23 mmol/L (22-30); CHLORIDE 109 mmol/L (98-107); GLUCOSE 90 mg/dL (75-110); POTASSIUM 3.7 mmol/L (3.6-5.0)
[2019-08-10] MEDS: MAGNESIUM OXIDE 400 MG TABLET PO SCH (09:52)
[2019-08-10] MEDS: CYCLOSPORINE 0.05% OPH EMULSIO 0.4 ML DROPERETTE OU SCH ×2 (09:53→17:10)
[2019-08-10] MEDS: CETIRIZINE 10 MG TABLET PO SCH (09:53)
[2019-08-10] MEDS: RANOLAZINE 500 MG TAB.SR.12H PO SCH (09:53)
[2019-08-10] MEDS: CEFUROXIME 250 MG TABLET PO SCH ×2 (09:53→17:10)
[2019-08-10] MEDS: APIXABAN 5 MG TABLET PO SCH (09:53)
[2019-08-10] MEDS: ASPIRIN 81 MG TABLET, ENT COATED PO SCH (09:53)
[2019-08-10] MEDS ORDERED: HYDRALAZINE HCL INJ/PF 20 MG/1 ML SDV IV PRN (11:34)
[2019-08-10] MEDS ORDERED: AMLODIPINE BESYLATE 5 MG TABLET PO SCH (11:45)
[2019-08-10 16:26] LABS: HEMATOCRIT 28.6 % (36.0-47.0); HEMOGLOBIN 9.8 g/dL (12.0-15.5); MEAN CORPUSCULAR HEMOGLOBIN 31.2 pg (27.0-33.4); MEAN CORPUSCULAR HGB CONC 34.2 g/dL (32.0-36.0); MEAN CORPUSCULAR VOLUME 91 fl (80-97); PLATELET COUNT 144 10^3/uL (150-450); RED BLOOD COUNT 3.14 10^6/uL (3.72-5.28); RED CELL DISTRIBUTION WIDTH 14.4 % (11.5-14.0); WHITE BLOOD COUNT 5.4 10^3/uL (4.0-10.5)
[2019-08-10 17:01] VITALS: BP 178/86
[2019-08-10] MEDS: TAMSULOSIN HCL 0.4 MG CAP.SR.24H PO SCH (17:10)
[2019-08-10] MEDS: ISOSORBIDE MONONITRATE 60 MG TAB.ER.24H PO SCH (17:10)
[2019-08-10] MEDS: PRAMIPEXOLE DI-HCL 0.25 MG TABLET PO SCH (17:10)
--- NOTE | 2019-08-11 15:20 | PDOC DISCHARGE SUMMARY ---
Impression - Admit/DC Date/PCP Admission Date/Primary Care Provider: 08/07/19 15:33 ETHAN MCMAHON MD Discharge Date: 08/10/19 - Discharge Diagnosis (1) Enterocolitis Is this a current diagnosis for this admission?: Yes (2) Abdominal pain Is this a current diagnosis for this admission?: Yes (3) Intractable vomiting Is this a current diagnosis for this admission?: Yes (4) CAD (coronary artery disease) Is this a current diagnosis for this admission?: Yes (5) Urinary retention Is this a current diagnosis for this admission?: Yes (6) Obesity (BMI 30-39.9) Is this a current diagnosis for this admission?: Yes (7) GI bleed Is this a current diagnosis for this admission?: Yes - Additional Information Resuscitation Status: Full Code Discharge Diet: Cardiac Discharge Activity: Activity As Tolerated, Balance Activity w/Rest, Slowly Increase Activity Referrals: ETHAN MCMAHON MD [Primary Care Provider] - 08/16/19 2:00 pm (Follow up within 1 week.) Prescriptions: Cefuroxime Axetil [Ceftin 250 mg Tablet] 250 mg PO BID #14 tablet Metronidazole [Flagyl 500 mg Tablet] 500 mg PO Q6 #28 tablet Amlodipine Besylate [Norvasc 5 mg Tablet] 5 mg PO Q12 #60 tablet Home Medications: Acetaminophen [Tylenol 8 Hour] 1,300 mg PO Q8HP PRN 08/07/19 Apixaban [Eliquis 5 mg Tablet] 5 mg PO Q12 08/07/19 Ascorbic Acid [Vitamin C 500 mg Tablet] 500 mg PO BID 08/07/19 Aspirin [Adult Low Dose Aspirin EC] 81 mg PO DAILY 08/07/19 Cyanocobalamin (Vitamin B-12) [Vitamin B-12 1000 mcg Tablet] 1,000 mcg PO DAILY 08/07/19 Cyclosporine 0.05% Oph Emulsio [Restasis 0.05% Oph Emulsion Pf 0.4 ml] 1 drop OU BID 08/07/19 Docusate Sodium [Colace 100 mg Capsule] 100 mg PO BID 08/07/19 Isosorbide Mononitrate [Isosorbide Mononitrate ER] 120 mg PO QPM 08/07/19 Magnesium Oxide [Magnesium] 250 mg PO DAILY 08/07/19 Nitroglycerin [Nitrolingual] 1 spray SL Q5MP PRN 08/07/19 [place]-3 Fatty Acids/Fish Oil [Fish Oil 1,000 mg Capsule] 1 cap PO BID 08/07/19 Pramipexole Di-HCl [Mirapex 0.25 mg Tablet] 0.25 mg PO QPM 08/07/19 Ranolazine [Ranexa 500 mg Tab.sr] 500 mg PO DAILY 08/07/19 Tramadol HCl [Ultram 50 mg Tablet] 50 mg PO Q12 08/07/19 Ubidecarenone [Coq-10] 200 mg PO BID 08/07/19 Vit A/Vit C/Vit E/Zinc/Copper [Preservision Areds Softgel] 1 cap PO BID 08/07/19 l [place]/B Bifidum/B Longum [[employer] [facility] Capsule] 1 cap PO DAILY 08/07/19 Apixaban [Eliquis 5 mg Tablet] 5 mg PO Q12 tablet 08/09/19 Cefuroxime Axetil [Ceftin 250 mg Tablet] 250 mg PO BID #14 tablet 08/09/19 Metronidazole [Flagyl 500 mg Tablet] 500 mg PO Q6 #28 tablet 08/09/19 Amlodipine Besylate [Norvasc 5 mg Tablet] 5 mg PO Q12 #60 tablet 08/10/19 Apixaban [Eliquis 5 mg Tablet] 08/11/19 History of Present Illiness History of Present Illness: Per H&P by Dr. Jordan: SUNITA BALLESTEROS is a 84 year old female with a past medical history of diabetes, dyslipidemia, hypertension, coronary artery bypass and 6 subsequent stents. Patient presents with 8 hours of intractable nausea vomiting diarrhea with abdominal pain. She denies infectious contacts or suspect meals and denies lettuce. She admits recent UTI treatment with Macrobid. She denies chest pain or shortness of breath. In the emergency room she is found to have dehydration, orthostatic hypotension, intractable nausea vomiting and colitis by CT abdomen. She started on symptomatic management, IV fluids and referred to the hospitalist for admission. Hospital Course Hospital Course: The patient was admitted to the medical floor on continuous cardiac telemetry. She was provided gentle IV fluids and empirically placed on IV Rocephin and p.o. Flagyl. Patient's abdominal pain, nausea and vomiting rapidly improved. She was advanced from clears to a soft/low residue diet which she tolerated without difficulty. However, she was noted to experience a slight amount of bright red blood per rectum preceding her stools. She was monitored with serial hemoglobin ; stable at her baseline of 9.8. and actually increasing at time of discharge and actually increased on day of discharge. She has had no further bloody stools in the previous 24 hours and therefore was discharged home. The patient did develop acute urinary retention. She has a history of the same; on Flomax to the home medication. Attempts were made to manage her urinary retention with intermittent catheterization. Unfortunately, patient continued to have difficulty urinating with blood post void residuals being greater than 500. Discussed with the patient and family members; did not feel comfortable with continuing intermittent catheterizations at home. Therefore, [place] catheter was placed and she was instructed to follow-up with her established urologist at the earliest available appointment. She is discharged to home in stable condition into the care of her family members. Arrangements have been made for the patient to receive home health services. She is instructed to complete her course of antibiotic therapy. She is instructed to drink plenty of water and to eat as tolerated. She is advised to return to the emergency department if she experiences worsening blood in her stools, especially if associated with shortness of breath, palpitations, or dizziness. She is further encouraged to return to the emergency department as needed for concerning symptoms. Physical Exam Vital Signs: Temp Pulse Resp BP Pulse Ox 98.3 F 79 17 178/86 H 96 08/10/19 16:59 08/10/19 16:59 08/10/19 16:59 08/10/19 16:59 08/10/19 16:59 Intake & Output 08/10/19 08/11/19 08/12/19 06:59 06:59 06:59 Intake Total 4405 293 Output Total 2600 Balance 1805 293 Weight 92.4 kg 92.4 kg General appearance: PRESENT: no acute distress, cooperative, obese, well- developed, well-nourished Head exam: PRESENT: atraumatic, normocephalic Eye exam: PRESENT: conjunctiva pink, EOMI, PERRLA. ABSENT: scleral icterus Ear exam: PRESENT: normal external ear exam Mouth exam: PRESENT: moist, tongue midline Respiratory exam: PRESENT: clear to auscultation wojciech, symmetrical, unlabored. ABSENT: rales, rhonchi, wheezes Cardiovascular exam: PRESENT: RRR, +S1, +S2. ABSENT: diastolic murmur, rubs, systolic murmur Pulses: PRESENT: normal dorsalis pedis pul Vascular exam: PRESENT: normal capillary refill GI/Abdominal exam: PRESENT: normal bowel sounds, soft. ABSENT: distended, guarding, mass, organolmegaly, rebound, tenderness Rectal exam: PRESENT: deferred, bloody stool - Slight intermittent Extremities exam: PRESENT: full ROM. ABSENT: calf tenderness, clubbing, pedal edema Neurological exam: PRESENT: alert, awake, oriented to person, oriented to place, oriented to time, oriented to situation, CN II-XII grossly intact. ABSENT: motor sensory deficit Psychiatric exam: PRESENT: appropriate affect, normal mood. ABSENT: homicidal ideation, suicidal ideation Skin exam: PRESENT: dry, intact, warm. ABSENT: cyanosis, rash Results Laboratory Results: WBC 5.4 10^3/uL (4.0-10.5) 08/10/19 16:12 RBC 3.14 10^6/uL (3.72-5.28) L 08/10/19 16:12 Hgb 9.8 g/dL (12.0-15.5) L 08/10/19 16:12 Hct 28.6 % (36.0-47.0) L 08/10/19 16:12 MCV 91 fl (80-97) 08/10/19 16:12 MCH 31.2 pg (27.0-33.4) 08/10/19 16:12 MCHC 34.2 g/dL (32.0-36.0) 08/10/19 16:12 RDW 14.4 % (11.5-14.0) H 08/10/19 16:12 Plt Count 144 10^3/uL (150-450) L 08/10/19 16:12 Lymph % (Auto) 9.5 % (13-45) L 08/08/19 04:53 [place] % (Auto) 8.9 % (3-13) 08/08/19 04:53 Eos % (Auto) 3.4 % (0-6) 08/08/19 04:53 Baso % (Auto) 0.4 % (0-2) 08/08/19 04:53 Absolute Neuts (auto) 5.5 10^3/uL (1.7-8.2) 08/08/19 04:53 Absolute Lymphs (auto) 0.7 10^3/uL (0.5-4.7) 08/08/19 04:53 Absolute Monos (auto) 0.6 10^3/uL (0.1-1.4) 08/08/19 04:53 Absolute Eos (auto) 0.2 10^3/uL (0.0-0.6) 08/08/19 04:53 Absolute Basos (auto) 0.0 10^3/uL (0.0-0.2) 08/08/19 04:53 Total Counted 100 08/07/19 06:18 Seg Neutrophils % 77.8 % (42-78) 08/08/19 04:53 Seg Neuts % (Manual) 85 % (42-78) H 08/07/19 06:18 Band Neutrophils % 7 % (3-5) H 08/07/19 06:18 Lymphocytes % (Manual) 2 % (13-45) L 08/07/19 06:18 Monocytes % (Manual) 6 % (3-13) 08/07/19 06:18 Eosinophils % (Manual) 0 % (0-6) 08/07/19 06:18 Basophils % (Manual) 0 % (0-2) 08/07/19 06:18 Abs Neuts (Manual) 14.6 10^3/uL (1.7-8.2) H 08/07/19 06:18 Abs Lymphs (Manual) 0.3 10^3/uL (0.5-4.7) L 08/07/19 06:18 Abs Monocytes (Manual) 1.0 10^3/uL (0.1-1.4) 08/07/19 06:18 Absolute Eos (Manual) 0.0 10^3/uL (0.0-0.6) 08/07/19 06:18 Abs Basophils (Manual) 0.0 10^3/uL (0.0-0.2) 08/07/19 06:18 Toxic Granulation 1+ 08/07/19 06:18 Platelet Comment DECREASED 08/07/19 06:18 RBC Morph Comment NORMO-CYTIC/CHROMIC 08/07/19 06:18 Sodium 137.3 mmol/L (137-145) 08/10/19 04:03 Potassium 3.7 mmol/L (3.6-5.0) 08/10/19 04:03 Chloride 109 mmol/L (98-107) H 08/10/19 04:03 Carbon Dioxide 23 mmol/L (22-30) 08/10/19 04:03 Anion Gap 5 (5-19) 08/10/19 04:03 BUN 16 mg/dL (7-20) 08/10/19 04:03 Creatinine 0.82 mg/dL (0.52-1.25) 08/10/19 04:03 Est GFR ( Amer) > 60 (>60) 08/10/19 04:03 Est GFR (MDRD) Non-Af > 60 (>60) 08/10/19 04:03 Glucose 90 mg/dL (75-110) 08/10/19 04:03 Calcium 7.6 mg/dL (8.4-10.2) L 08/10/19 04:03 Total Bilirubin 0.6 mg/dL (0.2-1.3) 08/06/19 18:20 Direct Bilirubin 0.3 mg/dL (0.0-0.4) 08/06/19 18:20 Neonat Total Bilirubin Not Reportable 08/06/19 18:20 Neonat Direct Bilirubin Not Reportable 08/06/19 18:20 Neonat Indirect Bili Not Reportable 08/06/19 18:20 AST 35 U/L (14-36) 08/06/19 18:20 ALT 13 U/L (<35) 08/06/19 18:20 Alkaline Phosphatase 121 U/L (38-126) 08/06/19 18:20 Total Protein 7.6 g/dL (6.3-8.2) 08/06/19 18:20 Albumin 4.4 g/dL (3.5-5.0) 08/06/19 18:20 Lipase 123.0 U/L (23-300) 08/06/19 18:20 Urine Color [place] 08/06/19 23:08 Urine Appearance SLIGHTLY-CLOUDY 08/06/19 23:08 Urine pH 5.0 (5.0-9.0) 08/06/19 23:08 Ur Specific [place] 1.020 08/06/19 23:08 Urine Protein NEGATIVE mg/dL (NEGATIVE) 08/06/19 23:08 Urine Glucose (UA) NEGATIVE mg/dL (NEGATIVE) 08/06/19 23:08 Urine Ketones TRACE mg/dL (NEGATIVE) H 08/06/19 23:08 Urine Blood NEGATIVE (NEGATIVE) 08/06/19 23:08 Urine Nitrite NEGATIVE (NEGATIVE) 08/06/19 23:08 Urine Bilirubin NEGATIVE (NEGATIVE) 08/06/19 23:08 Urine Urobilinogen 4.0 mg/dL (<2.0) H 08/06/19 23:08 Ur Leukocyte Esterase NEGATIVE (NEGATIVE) 08/06/19 23:08 Urine WBC (Auto) 1 /HPF 08/06/19 23:08 Urine RBC (Auto) 1 /HPF 08/06/19 23:08 U Hyaline Cast (Auto) 4 /LPF 08/06/19 23:08 Squamous Epi Cells Auto 1 /HPF 08/06/19 23:08 Urine Mucus (Auto) RARE /LPF 08/06/19 23:08 Urine Ascorbic Acid 40 (NEGATIVE) H 08/06/19 23:08 Blood Type O POSITIVE 08/08/19 17:55 Antibody Screen NEGATIVE 08/08/19 17:55 Impressions: Abdomen/Pelvis CT 08/06/19 00:00 IMPRESSION: Marked colitis involving the distal colon extending from the transverse to sigmoid colon. This may be infectious or inflammatory in etiology. Plan Plan of Treatment: Patient is discharged to home in stable condition into the care of family members. Arrangements have been made for the patient to receive home health services. She is advised to follow-up with her primary care provider within 1 week. She is instructed her course of antibiotic therapy. She is encouraged to drink plenty of water and eat as tolerated. She is instructed to return to the emergency department if she experienced worsening blood per rectum; she has been noted to have a slight amount of bright red blood with her stool. Hemoglobin has remained stable and stools have decreased. She is further encouraged to return to the emergency department as needed for any other concerning symptoms. Stroke Is this a Stroke Patient?: No Acute Heart Failure - Is this a Heart Failure Patient?: No
== END 2019-08-10 17:45 | disposition home health service (06) | DRG 392 ==
LOC: ER 17:53 → EH 08-07 01:10 → INTOOBSV 08-07 01:10 → 4N 08-07 03:30 → OBSVTOIN 08-07 15:33
PROVIDERS: ADMIT Internal Medicine; ATTEND Internal Medicine
DX: A09 Infectious gastroenteritis and colitis, unspecified (principal); I25.810 Atherosclerosis of coronary artery bypass graft(s) without angina pectoris; R33.9 Retention of urine, unspecified; E66.9 Obesity, unspecified; E11.9 Type 2 diabetes mellitus without complications; E78.5 Hyperlipidemia, unspecified; I10 Essential (primary) hypertension; E86.0 Dehydration; I95.1 Orthostatic hypotension; E78.00 Pure hypercholesterolemia, unspecified; K21.9 Gastro-esophageal reflux disease without esophagitis; I25.2 Old myocardial infarction; Z68.36 Body mass index [BMI] 36.0-36.9, adult; Z95.1 Presence of aortocoronary bypass graft; Z95.5 Presence of coronary angioplasty implant and graft; Z79.01 Long term (current) use of anticoagulants; Z79.899 Other long term (current) drug therapy; Z86.73 Personal history of transient ischemic attack (TIA), and cerebral infarction without residual deficits
CPT/HCPCS: 36415; 51701; 74177; 80048; 80053; 81001; 83690; 85025; 85027; 86850; 86900; 86901; 87040; 93005; 93010; 96361; 96374; 96375; 99285; G0378; J0696; J2270; J2405; J3010; J3490; J7030

== ENCOUNTER 2019-08-11 14:11 | Inpatient (IN) | payer MEDICARE, OTHER ==
[2019-08-11] MEDS ORDERED: NORMAL SALINE 1000 ML 1,000 ML IV ONE (15:07)
--- NOTE | 2019-08-11 15:14 | ER Document Report ---
ED General - General Chief Complaint: Rectal Bleeding Stated Complaint: RECTAL BLEED Time Seen by Provider: 08/11/19 14:39 Primary Care Provider: ETHAN MCMAHON MD [Primary Care Provider] - Follow up as needed TRAVEL OUTSIDE OF THE [place] IN LAST 30 DAYS: No - HPI Notes: Mrs. Rousseau is an 84-year-old female with a chief complaint of rectal bleeding and weakness. This lady was just discharged from the inpatient service here yesterday after being admitted for similar symptoms and at that time she had CT showing diffuse colitis. I reviewed inpatient records and currently there is not a discharge summary. Looking at progress notes it appears they were suspicious of C. difficile and patient says she was sent home on an unknown antibiotic. She did not bring this with her but says she is been compliant with medication. She complains of ongoing intermittent cramping over the left side of her abdomen. She has been intermittently passing "a lot of dark blood" rectally. She denies however having a normal bowel movement in 3 to 4 days. She is been nauseated and vomited twice this morning with no blood or coffee grounds reported. She denies fever. Patient has been taking Eliquis due to history of chronic atrial fibrillation. EMS reported a blood pressure of 90 systolic when they picked her up. She was given 1 L of lactated Ringer's during transport and blood pressure has been above 130 systolic since arrival in the emergency department. - Related Data Allergies/Adverse Reactions: levofloxacin [From Levaquin] Allergy (Severe, Verified 08/11/19 14:18) Diarrhea Past Medical History - General Information source: Patient, Emergency Med Personnel - Social History Smoking Status: Former Smoker Frequency of alcohol use: None Drug Abuse: None Family History: Hypertension, Malignancy Patient has suicidal ideation: No Patient has homicidal ideation: No - Past Medical History Cardiac Medical History: Reports: Hx Coronary Artery Disease, Hx Heart Attack, Hx Hypercholesterolemia, Hx Hypertension Denies: Hx Atrial Fibrillation, Hx Congestive Heart Failure, Hx Peripheral Vascular Disease, Hx Heart Murmur Pulmonary Medical History: Denies: Hx Asthma, Hx Bronchitis, Hx COPD, Hx Pneumonia, Hx Tuberculosis Neurological Medical History: Reports: Hx Cerebrovascular Accident. Denies: Hx Seizures Endocrine Medical History: Denies: Hx Diabetes Mellitus Type 1, Hx Diabetes Mellitus Type 2, Hx Hyperthyroidism, Hx Hypothyroidism Renal/ Medical History: Denies: Hx Peritoneal Dialysis GI Medical History: Reports: Hx Gastroesophageal Reflux Disease. Denies: Hx Cirrhosis, Hx Hepatitis Musculoskeletal Medical History: Reports Hx Arthritis, Denies Hx Gout Skin Medical History: Denies Hx Eczema, Denies Hx Psoriasis Psychiatric Medical History: Denies: Hx Depression Infectious Medical History: Denies: Hx Hepatitis Past Surgical History: Reports: Hx Cardiac Catheterization, Hx Cardiac Surgery - "bypass", Hx Coronary Artery Bypass Graft, Hx Coronary Stent, Hx Hysterectomy, Hx Tubal Ligation. Denies: Hx Appendectomy, Hx Bowel Surgery, Hx Section, Hx Cholecystectomy, Hx Gastric Bypass Surgery, Hx Herniorrhaphy, Hx Mastectomy, Hx Pacemaker, Hx Tonsillectomy - Immunizations Hx Diphtheria, Pertussis, Tetanus Vaccination: No Review of Systems - Review of Systems Notes: Constitutional: Negative for fever. HENT: Negative for sore throat. Eyes: Negative for visual changes. Cardiovascular: Negative for chest pain. Respiratory: Negative for shortness of breath. Gastrointestinal: As per HPI. Genitourinary: Negative for dysuria. Musculoskeletal: Negative for back pain. Skin: Negative for rash. Neurological: No syncope or presyncope. Negative for headaches, weakness or numbness. 10 point ROS negative except as marked above and in HPI. Physical Exam - Vital signs Vitals: BP 151/78 H 08/11/19 14:27 - Notes Notes: GENERAL: Well-developed well-nourished elderly female who appears somewhat pale. SKIN: Good turgor no rashes. HEAD: Normocephalic atraumatic. EYES: PERRLA. Conjunctivae and sclerae clear. EARS: CANALS AND TMS CLEAR. NOSE: CLEAR. MOUTH: Moist mucosa. Good dentition. No stridor or edema. No drooling. NECK: Supple. No masses or thyromegaly. No adenopathy. Carotids 2+ without bruits. No JVD. BACK: Symmetrical without tenderness. CHEST: Respirations unlabored. Breath sounds clear and symmetrical. HEART: Regular rhythm. No murmur gallop or rub. ABDOMEN: Soft without masses, organomegaly or rebound. Bowel sounds normally active. No bruits. Rectal: Clotted dark red blood present in rectal vault. GENITALIA: Normal female with Mccauley catheter in situ. EXTREMITIES: No edema. No calf tenderness. Cap refill less than 1.5 seconds. Dorsalis pedis and posterior tibial pulses 3+ and symmetrical. NEUROLOGICAL: GCS 15. Alert and oriented x3. Normal gait. Fluent speech. Cranial nerves II through XII intact. Sensorimotor and cerebellar normal. Normal tone. Course - Re-evaluation Re-evalutation: 08/11/19 16:18 The patient has remained hemodynamically stable since arrival here but he is noted to have large blood clots in rectal area. Her abdominal exam is benign. Her hemoglobin has actually increased since her discharge yesterday and is presently 10.3 g. Platelet count is normal. INR is 1.3. Patient is continuing to take Eliquis and aspirin and says she was instructed not stop these were these although she personally thought that she probably should no longer be taking them. In reviewing her past history 5 she has had a prior history of a thrombotic stroke number of years ago when she has a long-standing history of atrial fibrillation. I think at this point aspirin and Eliquis do need to be stopped. I have spoken with the hospitalist service and they will readmit the patient. She will be evaluated in the emergency department by Dr. Vazquez. - Vital Signs Vital signs: Temp Pulse Resp BP Pulse Ox 98.0 F 86 23 H 144/97 H 97 08/11/19 14:35 08/11/19 14:35 08/11/19 16:01 08/11/19 16:01 08/11/19 16:01 - Laboratory Result Diagrams: 08/11/19 14:01 08/11/19 14:01 Laboratory results interpreted by me: 08/11/19 08/11/19 08/11/19 14:01 14:01 14:01 RBC 3.41 L Hgb 10.5 L Hct 31.4 L RDW 14.4 H PT 16.5 H Potassium 3.5 L Est GFR (MDRD) Non-Af 57 L Glucose 128 H Total Protein 5.8 L Albumin 3.2 L Urine Protein Urine Blood Leukocyte Esterase Rfl Urine Ascorbic Acid 08/11/19 14:42 RBC Hgb Hct RDW PT Potassium Est GFR (MDRD) Non-Af Glucose Total Protein Albumin Urine Protein 30 H Urine Blood SMALL H Leukocyte Esterase Rfl SMALL H Urine Ascorbic Acid 40 H - EKG Interpretation by Pr EKG shows normal: Sinus rhythm, Starbuck Rate: Normal Additional EKG results interpreted by me: 11/27/19 16:18 Unchanged from prior tracing demonstrating persistent incomplete right bundle branch block. Previous tracing for comparison was from August 07, 2019. Discharge - Discharge Clinical Impression: Rectal bleeding, Colitis Condition: Fair Disposition: ADMITTED INPATIENT Admitting Provider: George (Hospitalist) Unit Admitted: [facility] Referrals: ETHAN MCMAHON MD [Primary Care Provider] - Follow up as needed
[2019-08-11 15:27] LABS: ABSOLUTE EOSINOPHILS # (AUTO) 0.1 10^3/uL (0.0-0.6); ABSOLUTE LYMPHOCYTES (AUTO) 1.4 10^3/uL (0.5-4.7); ABSOLUTE MONOCYTES (AUTO) 1.1 10^3/uL (0.1-1.4); ABSOLUTE NEUT (AUTO) 6.6 10^3/uL (1.7-8.2); BASOPHILS % (AUTO) 0.3 % (0-2); EOSINOPHILS % (AUTO) 1.5 % (0-6); HEMATOCRIT 31.4 % (36.0-47.0); HEMOGLOBIN 10.5 g/dL (12.0-15.5); LYMPHOCYTES % (AUTO) 15.5 % (13-45); MEAN CORPUSCULAR HEMOGLOBIN 30.8 pg (27.0-33.4); MEAN CORPUSCULAR HGB CONC 33.4 g/dL (32.0-36.0); MEAN CORPUSCULAR VOLUME 92 fl (80-97); MONOCYTES % (AUTO) 11.7 % (3-13); PLATELET COUNT 194 10^3/uL (150-450); RED BLOOD COUNT 3.41 10^6/uL (3.72-5.28); RED CELL DISTRIBUTION WIDTH 14.4 % (11.5-14.0); TOTAL CELLS COUNTED % (AUTO) 100 %; WHITE BLOOD COUNT 9.3 10^3/uL (4.0-10.5)
[2019-08-11 15:41] LABS: ALBUMIN 3.2 g/dL (3.5-5.0); ALKALINE PHOSPHATASE 64 U/L (38-126); ANION GAP 10 (5-19); ASPARTATE AMINO TRANSFERASE 18 U/L (14-36); BILIRUBIN,DIRECT 0.1 mg/dL (0.0-0.4); BILIRUBIN,TOTAL 0.3 mg/dL (0.2-1.3); BLOOD UREA NITROGEN 13 mg/dL (7-20); CALCIUM 8.8 mg/dL (8.4-10.2); CARBON DIOXIDE 26 mmol/L (22-30); CHLORIDE 103 mmol/L (98-107); GLUCOSE 128 mg/dL (75-110); POTASSIUM 3.5 mmol/L (3.6-5.0); TOTAL PROTEIN 5.8 g/dL (6.3-8.2)
[2019-08-11 15:43] LABS: INTERNATIONAL RATION (INR) 1.32; PROTHROMBIN TIME 16.5 SEC (11.4-15.4)
[2019-08-11 15:44] LABS: PARTIAL THROMBOPLASTIN TIME 30.7 SEC (23.5-35.8)
[2019-08-11 16:23] LABS: APPEARANCE,URINE TURBID; BILIRUBIN,URINE NEGATIVE (NEGATIVE); CALCIUM OXALATE CRYSTALS,URINE MODERATE /HPF; GLUCOSE, URINE NEGATIVE (NEGATIVE); KETONES,URINE NEGATIVE (NEGATIVE); PROTEIN,URINE 30 mg/dL (NEGATIVE); URINE SPECIFIC GRAVITY 1.019; UROBILINOGEN,URINE NEGATIVE mg/dL (<2.0)
[2019-08-11 16:25] LABS: COLOR,URINE YELLOW
[2019-08-11] MEDS ORDERED: PROMETHAZINE HCL INJ 25 MG/1 ML VIAL IV PRN (17:27)
[2019-08-11] MEDS ORDERED: IPRATROPIUM/ALBUTEROL 0.5-2.5 MG/3 ML AMPUL NEB PRN (17:27)
[2019-08-11] MEDS ORDERED: ACETAMINOPHEN 325 MG TABLET PO PRN (17:27)
[2019-08-11] MEDS ORDERED: ONDANSETRON HCL INJ/PF 4 MG/2 ML SDV IV PRN (17:27)
[2019-08-11] MEDS ORDERED: NORMAL SALINE 1000 ML 1,000 ML IV PRN (17:27)
[2019-08-11] MEDS ORDERED: NORMAL SALINE 250 ML IV PRN ×2 (17:41)
--- NOTE | 2019-08-11 17:47 | PDOC H&P ---
History of Present Illness Admission Date/PCP: ETHAN MCMAHON MD History of Present Illness: SUNITA BALLESTEROS is a 84 year old female past medical history of diabetes, dyslipidemia, hypertension, coronary artery bypass and 6 subsequent stents and atrial fibrillation on Eliquis who was recently admitted to [facility] for enterocolitis and was discharged on 08/10/2019 on cefuroxime and metronidazole. Patient presenting to ED complaining of bleeding and weakness. Last night when she was sleeping, felt the urge to go to the restroom, noted bright blood per rectum mixed with blood clots, this was repeated again later today with only bright blood per rectum, also complaining of dizziness, denies any chest pain, shortness of breath, syncope or presyncope, still complaining of mild abdominal pressure, denies any fever, chills, nausea, vomiting, diarrhea or any urinary symptoms. Past Medical History Cardiac Medical History: Reports: Coronary Artery Disease, Myocardial Infarction, Hyperlipidema, Hypertension Denies: Atrial Fibrillation, Congestive Heart Failure, Peripheral Vascular Disease, Heart Murmur Pulmonary Medical History: Denies: Asthma, Bronchitis, Chronic Obstructive Pulmonary Disease (COPD), Pneumonia, Tuberculosis Neurological Medical History: Denies: Seizures Endocrine Medical History: Denies: Diabetes Mellitus Type 1, Diabetes Mellitus Type 2, Hyperthyroidism, Hypothyroidism GI Medical History: Reports: Gastroesophageal Reflux Disease Denies: Cirrhosis, Hepatitis Musculoskeltal Medical History: Reports: Arthritis Denies: Gout Skin Medical History: Denies: Eczema, Psoriasis Psychiatric Medical History: Denies: Depression Hematology: Denies: Anemia, Bleeding Tendencies Past Surgical History Past Surgical History: Reports: Cardiac Catheterization, Coronary Artery Bypass Graft, Coronary Stent, Hysterectomy, Tubal Ligation Denies: Appendectomy, Section, Cholecystectomy, Gastric Bypass Surgery, Herniorrhaphy, Mastectomy, Pacemaker, Tonsillectomy Social History Smoking Status: Former Smoker Frequency of Alcohol Use: None Hx Recreational Drug Use: No Drugs: None Hx Prescription Drug Abuse: No Family History Family History: Hypertension, Malignancy Parental Family History Reviewed: Yes Children Family History Reviewed: Yes Sibling(s) Family History Reviewed.: Yes Medication/Allergy Home Medications: Acetaminophen [Tylenol 8 Hour] 1,300 mg PO Q8HP PRN 08/07/19 Apixaban [Eliquis 5 mg Tablet] 5 mg PO Q12 08/07/19 Ascorbic Acid [Vitamin C 500 mg Tablet] 500 mg PO BID 08/07/19 Aspirin [Adult Low Dose Aspirin EC] 81 mg PO DAILY 08/07/19 Cyanocobalamin (Vitamin B-12) [Vitamin B-12 1000 mcg Tablet] 1,000 mcg PO DAILY 08/07/19 Cyclosporine 0.05% Oph Emulsio [Restasis 0.05% Oph Emulsion Pf 0.4 ml] 1 drop OU BID 08/07/19 Docusate Sodium [Colace 100 mg Capsule] 100 mg PO BID 08/07/19 Isosorbide Mononitrate [Isosorbide Mononitrate ER] 120 mg PO QPM 08/07/19 Magnesium Oxide [Magnesium] 250 mg PO DAILY 08/07/19 Nitroglycerin [Nitrolingual] 1 spray SL Q5MP PRN 08/07/19 [place]-3 Fatty Acids/Fish Oil [Fish Oil 1,000 mg Capsule] 1 cap PO BID 08/07/19 Pramipexole Di-HCl [Mirapex 0.25 mg Tablet] 0.25 mg PO QPM 08/07/19 Ranolazine [Ranexa 500 mg Tab.sr] 500 mg PO DAILY 08/07/19 Tramadol HCl [Ultram 50 mg Tablet] 50 mg PO Q12 08/07/19 Ubidecarenone [Coq-10] 200 mg PO BID 08/07/19 Vit A/Vit C/Vit E/Zinc/Copper [Preservision [employer]reds Softgel] 1 cap PO BID 08/07/19 l [place]/B Bifidum/B Longum [[facility] Capsule] 1 cap PO DAILY 1 10/07/18 Apixaban [Eliquis 5 mg Tablet] 5 mg PO Q12 tablet 08/09/19 Cefuroxime Axetil [Ceftin 250 mg Tablet] 250 mg PO BID #14 tablet 08/09/19 Metronidazole [Flagyl 500 mg Tablet] 500 mg PO Q6 #28 tablet 08/09/19 Amlodipine Besylate [Norvasc 5 mg Tablet] 5 mg PO Q12 #60 tablet 08/10/19 Apixaban [Eliquis 5 mg Tablet] 08/11/19 Allergies/Adverse Reactions: levofloxacin [From Levaquin] Allergy (Severe, Verified 08/11/19 14:18) Diarrhea Review of Systems Review of Systems: as per hpi Physical Exam Vital Signs: Temp Pulse Resp BP Pulse Ox 98.0 F 86 23 H 144/97 H 97 08/11/19 14:35 08/11/19 14:35 08/11/19 16:01 08/11/19 16:01 08/11/19 16:01 Intake & Output 08/10/19 08/11/19 08/12/19 06:59 06:59 06:59 Weight 93.7 kg Results Laboratory Results: 08/11/19 14:01 08/11/19 14:01 08/11/19 08/11/19 08/11/19 14:01 14:01 14:42 WBC 9.3 RBC 3.41 L Hgb 10.5 L Hct 31.4 L MCV 92 MCH 30.8 MCHC 33.4 RDW 14.4 H Plt Count 194 Seg Neutrophils % 71.0 Sodium 138.8 Potassium 3.5 L Chloride 103 Carbon Dioxide 26 Anion Gap 10 BUN 13 Creatinine 0.93 Est GFR ( Amer) > 60 Glucose 128 H Calcium 8.8 Total Bilirubin 0.3 AST 18 Alkaline Phosphatase 64 Total Protein 5.8 L Albumin 3.2 L Urine Color YELLOW Urine Appearance TURBID Urine pH 5.0 Ur Specific [place] 1.019 Urine Protein 30 H Urine Glucose (UA) NEGATIVE Urine Ketones NEGATIVE Urine Blood SMALL H Urine RBC (Auto) 25 Assessment and Plan - Diagnosis (1) Acute lower GI bleeding Is this a current diagnosis for this admission?: Yes Plan: Likely due to Eliquis for underlying A. fib. Patient also has history of bleeding while on Coumadin. I have discussed extensively the risk and benefit of continuing Eliquis with patient and her family and they will discuss it among themselves out, but the decision before discharge. Family also stated that they will contact her technologies division chair Dr. Eugene and discuss continuation of an Eliquis with him. Admit to [facility], hold Eliquis and aspirin, monitor H&H, transfuse if actively bleeding, hemoglobin less than 7, or symptomatic. (2) CAD (coronary artery disease) Qualifiers: Coronary Disease-Associated Artery/Lesion type: bypass graft [place] vs. transplanted heart: [place] heart Associated angina: without angina Qualified Code(s): I25.810 - Atherosclerosis of coronary artery bypass graft(s) without angina pectoris Is this a current diagnosis for this admission?: Yes Plan: Denies any anginal symptoms. Hold antiplatelets due to acute GI bleed. Restart home meds. (3) Chronic atrial fibrillation Is this a current diagnosis for this admission?: Yes Plan: Rate controlled. Anticoagulated. Continue beta-blockers. Hold Eliquis due to acute GI bleed. I have discussed extensively the risk and benefit of continuing Eliquis with patient and her family and they will discuss it among themselves out, but the decision before discharge. Family also stated that they will contact her technologies division chair Dr. Eugene and discuss continuation of an Eliquis with him. (4) GERD (gastroesophageal reflux disease) Qualifiers: Esophagitis presence: without esophagitis Qualified Code(s): K21.9 - Gastro-esophageal reflux disease without esophagitis Is this a current diagnosis for this admission?: Yes Plan: Restart home meds. (5) Hyperlipidemia Qualifiers: Hyperlipidemia type: unspecified Qualified Code(s): E78.5 - Hyperlipidemia, unspecified Is this a current diagnosis for this admission?: Yes Plan: Restart home meds. (6) Hypertension Is this a current diagnosis for this admission?: Yes Plan: Euvolemic. Normotensive. Restart home meds.
[2019-08-11 22:08] LABS: ABSOLUTE EOSINOPHILS # (AUTO) 0.2 10^3/uL (0.0-0.6); ABSOLUTE MONOCYTES (AUTO) 0.9 10^3/uL (0.1-1.4); BASOPHILS % (AUTO) 0.3 % (0-2); EOSINOPHILS % (AUTO) 2.4 % (0-6); HEMATOCRIT 28.5 % (36.0-47.0); HEMOGLOBIN 9.8 g/dL (12.0-15.5); MEAN CORPUSCULAR HEMOGLOBIN 31.2 pg (27.0-33.4); MEAN CORPUSCULAR HGB CONC 34.3 g/dL (32.0-36.0); MEAN CORPUSCULAR VOLUME 91 fl (80-97); MONOCYTES % (AUTO) 12.6 % (3-13); PLATELET COUNT 182 10^3/uL (150-450); RED BLOOD COUNT 3.14 10^6/uL (3.72-5.28); RED CELL DISTRIBUTION WIDTH 14.4 % (11.5-14.0); SEGMENTED NEUTROPHILS % (AUTO) 70.7 % (42-78); TOTAL CELLS COUNTED % (AUTO) 100 %
--- NOTE | 2019-08-11 23:40 | EKG REPORT ---
SEVERITY:- ABNORMAL ECG - SINUS RHYTHM INCOMPLETE RIGHT BUNDLE BRANCH BLOCK INFERIOR INFARCT, AGE INDETERMINATE : Confirmed by: Nikki Mills 11-Aug-2019 23:39:56
[2019-08-12 05:33] LABS: ABSOLUTE EOSINOPHILS # (AUTO) 0.2 10^3/uL (0.0-0.6); ABSOLUTE LYMPHOCYTES (AUTO) 0.8 10^3/uL (0.5-4.7); ABSOLUTE NEUT (AUTO) 4.3 10^3/uL (1.7-8.2); BASOPHILS % (AUTO) 0.4 % (0-2); EOSINOPHILS % (AUTO) 3.6 % (0-6); HEMATOCRIT 26.9 % (36.0-47.0); HEMOGLOBIN 9.2 g/dL (12.0-15.5); LYMPHOCYTES % (AUTO) 12.5 % (13-45); MEAN CORPUSCULAR HEMOGLOBIN 30.9 pg (27.0-33.4); MEAN CORPUSCULAR HGB CONC 34.1 g/dL (32.0-36.0); MEAN CORPUSCULAR VOLUME 91 fl (80-97); MONOCYTES % (AUTO) 15.3 % (3-13); PLATELET COUNT 169 10^3/uL (150-450); RED BLOOD COUNT 2.96 10^6/uL (3.72-5.28); RED CELL DISTRIBUTION WIDTH 14.6 % (11.5-14.0); SEGMENTED NEUTROPHILS % (AUTO) 68.2 % (42-78); TOTAL CELLS COUNTED % (AUTO) 100 %; WHITE BLOOD COUNT 6.3 10^3/uL (4.0-10.5)
[2019-08-12 05:44] LABS: PROTHROMBIN TIME 17.3 SEC (11.4-15.4)
[2019-08-12 05:58] LABS: ALBUMIN 2.5 g/dL (3.5-5.0); ALKALINE PHOSPHATASE 46 U/L (38-126); ANION GAP 6 (5-19); ASPARTATE AMINO TRANSFERASE 17 U/L (14-36); BILIRUBIN,DIRECT 0.1 mg/dL (0.0-0.4); BILIRUBIN,TOTAL 0.3 mg/dL (0.2-1.3); BLOOD UREA NITROGEN 10 mg/dL (7-20); CARBON DIOXIDE 25 mmol/L (22-30); CHLORIDE 108 mmol/L (98-107); GLUCOSE 87 mg/dL (75-110); POTASSIUM 3.6 mmol/L (3.6-5.0); TOTAL PROTEIN 4.8 g/dL (6.3-8.2)
[2019-08-12] MEDS ORDERED: (PENDING PHARMACY ID) (Magnesium [Magnesium] 250 MG) PO SCH (10:00)
[2019-08-12] MEDS: MAGNESIUM OXIDE 400 MG TABLET PO SCH (10:11)
[2019-08-12] MEDS: PANTOPRAZOLE SODIUM 40 MG VIAL IV SCH ×2 (10:11→17:22)
[2019-08-12] MEDS: AMLODIPINE BESYLATE 5 MG TABLET PO SCH ×2 (10:11→21:58)
[2019-08-12] MEDS: CYCLOSPORINE 0.05% OPH EMULSIO 0.4 ML DROPERETTE OU SCH ×2 (11:06→17:22)
--- NOTE | 2019-08-12 12:01 | PDOC PROGRESS REPORT ---
Subjective Progress Note for:: 08/12/19 Subjective:: SUNITA BALLESTEROS is a 84 year old female past medical history of diabetes, dyslipidemia, hypertension, coronary artery bypass and 6 subsequent stents and atrial fibrillation on Eliquis who was recently admitted to [facility] for enterocolitis and was discharged on 08/10/2019 on cefuroxime and metronidazole. Patient presenting to ED complaining of bleeding and weakness. Last night when she was sleeping, felt the urge to go to the restroom, noted bright blood per rectum mixed with blood clots, this was repeated again later today with only bright blood per rectum, also complaining of dizziness, denies any chest pain, shortness of breath, syncope or presyncope, still complaining of mild abdominal pressure, denies any fever, chills, nausea, vomiting, diarrhea or any urinary symptoms. 08/04/2019. No acute events overnight. Patient has not had any recurrence of rectal bleeding. Patient has not had a bowel movement since yesterday. He denies any fever, chills, nausea, vomiting, diarrhea, or any urinary symptoms. Reason For Visit: ACUTE GI BLEED Physical Exam Vital Signs: Temp Pulse Resp BP Pulse Ox 98.3 F 68 14 152/86 H 94 08/12/19 07:20 08/12/19 11:50 08/12/19 11:50 08/12/19 07:20 08/12/19 11:50 Intake & Output 08/11/19 08/12/19 08/13/19 06:59 06:59 06:59 Intake Total 1000 Output Total 1375 Balance -375 Weight 91.1 kg General appearance: PRESENT: no acute distress, well-developed, well-nourished Respiratory exam: PRESENT: clear to auscultation wojciech. ABSENT: rales, rhonchi, wheezes Cardiovascular exam: PRESENT: RRR. ABSENT: diastolic murmur, rubs, systolic murmur GI/Abdominal exam: PRESENT: normal bowel sounds, soft. ABSENT: distended, guarding, mass, organolmegaly, rebound, tenderness Neurological exam: PRESENT: alert, awake, oriented to person, oriented to place, oriented to time, oriented to situation, CN II-XII grossly intact. ABSENT: motor sensory deficit Results Laboratory Results: 08/12/19 05:03 08/12/19 05:03 08/11/19 08/11/19 08/11/19 14:01 14:01 14:42 WBC 9.3 RBC 3.41 L Hgb 10.5 L Hct 31.4 L MCV 92 MCH 30.8 MCHC 33.4 RDW 14.4 H Plt Count 194 Seg Neutrophils % 71.0 Sodium 138.8 Potassium 3.5 L Chloride 103 Carbon Dioxide 26 Anion Gap 10 BUN 13 Creatinine 0.93 Est GFR ( Amer) > 60 Glucose 128 H Calcium 8.8 Magnesium Total Bilirubin 0.3 AST 18 Alkaline Phosphatase 64 Total Protein 5.8 L Albumin 3.2 L Urine Color YELLOW Urine Appearance TURBID Urine pH 5.0 Ur Specific [place] 1.019 Urine Protein 30 H Urine Glucose (UA) NEGATIVE Urine Ketones NEGATIVE Urine Blood SMALL H Urine RBC (Auto) 25 Blood Type Antibody Screen 08/11/19 08/11/19 08/12/19 15:25 21:55 05:03 WBC 7.0 RBC 3.14 L Hgb 9.8 L Hct 28.5 L MCV 91 MCH 31.2 MCHC 34.3 RDW 14.4 H Plt Count 182 Seg Neutrophils % 70.7 Sodium 138.9 Potassium 3.6 Chloride 108 H Carbon Dioxide 25 Anion Gap 6 BUN 10 Creatinine 0.80 Est GFR ( Amer) > 60 Glucose 87 Calcium 8.0 L Magnesium 1.7 Total Bilirubin 0.3 AST 17 Alkaline Phosphatase 46 Total Protein 4.8 L Albumin 2.5 L Urine Color Urine Appearance Urine pH Ur Specific [place] Urine Protein Urine Glucose (UA) Urine Ketones Urine Blood Urine RBC (Auto) Blood Type O POSITIVE Antibody Screen NEGATIVE 08/12/19 05:03 WBC 6.3 RBC 2.96 L Hgb 9.2 L Hct 26.9 L MCV 91 MCH 30.9 MCHC 34.1 RDW 14.6 H Plt Count 169 Seg Neutrophils % 68.2 Sodium Potassium Chloride Carbon Dioxide Anion Gap BUN Creatinine Est GFR ( Amer) Glucose Calcium Magnesium Total Bilirubin AST Alkaline Phosphatase Total Protein Albumin Urine Color Urine Appearance Urine pH Ur Specific [place] Urine Protein Urine Glucose (UA) Urine Ketones Urine Blood Urine RBC (Auto) Blood Type Antibody Screen Assessment and Plan - Diagnosis (1) Acute lower GI bleeding Is this a current diagnosis for this admission?: Yes Plan: H&H stable. No recurrence. Likely due to Eliquis for underlying A. fib. Patient also has history of bleeding while on Coumadin. Had a conversation with patient about risk and benefits of continuing Eliquis patient is stating that she does not want to take Eliquis anymore and wants to be stopped. Continue telemetry, hold Eliquis and aspirin, monitor H&H, transfuse if actively bleeding, hemoglobin less than 7, or symptomatic. (2) CAD (coronary artery disease) Qualifiers: Coronary Disease-Associated Artery/Lesion type: bypass graft [place] vs. transplanted heart: [place] heart Associated angina: without angina Qualified Code(s): I25.810 - Atherosclerosis of coronary artery bypass graft(s) without angina pectoris Is this a current diagnosis for this admission?: Yes Plan: Denies any anginal symptoms. Hold antiplatelets due to acute GI bleed. Restart home meds. (3) Chronic atrial fibrillation Is this a current diagnosis for this admission?: Yes Plan: Rate controlled. Eliquis on hold and DC'd as per patient request. Continue beta-blockers. Hold Eliquis due to acute GI bleed. (4) GERD (gastroesophageal reflux disease) Qualifiers: Esophagitis presence: without esophagitis Qualified Code(s): K21.9 - Gastro-esophageal reflux disease without esophagitis Is this a current diagnosis for this admission?: Yes Plan: Restart home meds. (5) Hyperlipidemia Qualifiers: Hyperlipidemia type: unspecified Qualified Code(s): E78.5 - Hyperlipidemia, unspecified Is this a current diagnosis for this admission?: Yes Plan: Restart home meds. (6) Hypertension Is this a current diagnosis for this admission?: Yes Plan: Euvolemic. Normotensive. Restart home meds. (7) Urinary retention Is this a current diagnosis for this admission?: Yes Plan: Chronic. Continue home dose Flomax. Mccauley catheter. Follow up with established urologist as an outpatient
[2019-08-12 14:03] LABS: ABSOLUTE EOSINOPHILS # (AUTO) 0.2 10^3/uL (0.0-0.6); ABSOLUTE LYMPHOCYTES (AUTO) 0.8 10^3/uL (0.5-4.7); ABSOLUTE MONOCYTES (AUTO) 0.7 10^3/uL (0.1-1.4); ABSOLUTE NEUT (AUTO) 4.7 10^3/uL (1.7-8.2); BASOPHILS % (AUTO) 0.6 % (0-2); EOSINOPHILS % (AUTO) 2.4 % (0-6); HEMATOCRIT 29.1 % (36.0-47.0); LYMPHOCYTES % (AUTO) 12.5 % (13-45); MEAN CORPUSCULAR HGB CONC 34.3 g/dL (32.0-36.0); MEAN CORPUSCULAR VOLUME 90 fl (80-97); MONOCYTES % (AUTO) 11.4 % (3-13); PLATELET COUNT 187 10^3/uL (150-450); RED BLOOD COUNT 3.22 10^6/uL (3.72-5.28); RED CELL DISTRIBUTION WIDTH 14.3 % (11.5-14.0); SEGMENTED NEUTROPHILS % (AUTO) 73.1 % (42-78); TOTAL CELLS COUNTED % (AUTO) 100 %; WHITE BLOOD COUNT 6.5 10^3/uL (4.0-10.5)
[2019-08-12] MEDS ORDERED: PRAMIPEXOLE DI-HCL 0.25 MG TABLET PO SCH (18:00)
[2019-08-12] MEDS ORDERED: ISOSORBIDE MONONITRATE 60 MG TAB.ER.24H PO SCH (18:00)
[2019-08-12] MEDS ORDERED: (PENDING PHARMACY ID) (Isosorbide Mononitrate [Isosorbide Mononitrate Er] 120 MG) PO SCH (18:00)
[2019-08-13] MEDS: OXYCODONE-ACETAMINOPHEN 5-325 MG TABLET PO PRN ×2 (05:44→14:44)
[2019-08-13 06:36] LABS: ABSOLUTE EOSINOPHILS # (AUTO) 0.2 10^3/uL (0.0-0.6); ABSOLUTE LYMPHOCYTES (AUTO) 0.9 10^3/uL (0.5-4.7); ABSOLUTE NEUT (AUTO) 5.5 10^3/uL (1.7-8.2); BASOPHILS % (AUTO) 0.5 % (0-2); EOSINOPHILS % (AUTO) 2.4 % (0-6); HEMATOCRIT 29.1 % (36.0-47.0); HEMOGLOBIN 10.1 g/dL (12.0-15.5); LYMPHOCYTES % (AUTO) 11.6 % (13-45); MEAN CORPUSCULAR HEMOGLOBIN 31.2 pg (27.0-33.4); MEAN CORPUSCULAR HGB CONC 34.6 g/dL (32.0-36.0); MEAN CORPUSCULAR VOLUME 90 fl (80-97); MONOCYTES % (AUTO) 12.8 % (3-13); PLATELET COUNT 207 10^3/uL (150-450); RED BLOOD COUNT 3.22 10^6/uL (3.72-5.28); RED CELL DISTRIBUTION WIDTH 14.5 % (11.5-14.0); SEGMENTED NEUTROPHILS % (AUTO) 72.7 % (42-78); TOTAL CELLS COUNTED % (AUTO) 100 %; WHITE BLOOD COUNT 7.6 10^3/uL (4.0-10.5)
[2019-08-13] MEDS ORDERED: HYDRALAZINE HCL INJ/PF 20 MG/1 ML SDV IV ONE (08:26)
[2019-08-13] MEDS: MAGNESIUM OXIDE 400 MG TABLET PO SCH (09:06)
[2019-08-13] MEDS: PANTOPRAZOLE SODIUM 40 MG VIAL IV SCH (09:07)
[2019-08-13] MEDS: AMLODIPINE BESYLATE 5 MG TABLET PO SCH (09:07)
[2019-08-13] MEDS: CYCLOSPORINE 0.05% OPH EMULSIO 0.4 ML DROPERETTE OU SCH (09:09)
--- NOTE | 2019-08-13 13:46 | PDOC DISCHARGE SUMMARY ---
Impression - Admit/DC Date/PCP Admission Date/Primary Care Provider: 08/11/19 17:44 ETHAN MCMAHON MD Discharge Date: 08/13/19 - Discharge Diagnosis (1) Acute lower GI bleeding Is this a current diagnosis for this admission?: Yes (2) CAD (coronary artery disease) Is this a current diagnosis for this admission?: Yes (3) Chronic atrial fibrillation Is this a current diagnosis for this admission?: Yes (4) GERD (gastroesophageal reflux disease) Is this a current diagnosis for this admission?: Yes (5) Hyperlipidemia Is this a current diagnosis for this admission?: Yes (6) Hypertension Is this a current diagnosis for this admission?: Yes (7) Urinary retention Is this a current diagnosis for this admission?: Yes - Additional Information Resuscitation Status: Do Not Intubate Referrals: ETHAN MCMAHON MD [Primary Care Provider] - Follow up as needed (The office is closed for the . Someone will call on Friday for follow-up appointment. .) Home Medications: Acetaminophen [Acetaminophen 8 Hour] 1,300 mg PO Q8HP PRN 08/11/19 Amlodipine Besylate [Norvasc 5 mg Tablet] 5 mg PO Q12 08/11/19 Ascorbic Acid [Vitamin C 500 mg Tablet] 500 mg PO BID 08/11/19 Aspirin [Adult Low Dose Aspirin EC] 81 mg PO DAILY 08/11/19 Cyanocobalamin (Vitamin B-12) [Vitamin B-12] 1,000 mcg PO DAILY 08/11/19 Cyclosporine 0.05% Oph Emulsio [Restasis 0.05% Oph Emulsion Pf 0.4 ml] 4 drop OU BID 08/11/19 Docusate Sodium [Colace] 100 mg PO BID 08/11/19 Isosorbide Mononitrate [Isosorbide Mononitrate ER] 120 mg PO QPM 08/11/19 Magnesium 250 mg PO DAILY 08/11/19 Nitroglycerin [Nitrolingual] 4.9 gm TL Q5MP PRN 08/11/19 [place]-3 Fatty Acids/Fish Oil [[place] 3 Fish Oil Softgel] 1 each PO BID 08/11/19 Pramipexole Di-HCl [Mirapex 0.25 mg Tablet] 0.25 mg PO QPM 08/11/19 Tramadol HCl [Ultram 50 mg Tablet] 50 mg PO Q12 08/11/19 Ubidecarenone [Coq-10] 200 mg PO BID 08/11/19 Vit A/Vit C/Vit E/Zinc/Copper [Preservision Areds Softgel] 1 each PO DAILY 08/11/19 l [place]/B Bifidum/B Longum [[employer] Colon Health Capsule] 1 each PO DAILY 08/11/19 History of Present Illiness History of Present Illness: SUNITA BALLESTEROS is a 84 year old female past medical history of diabetes, dyslipidemia, hypertension, coronary artery bypass and 6 subsequent stents and atrial fibrillation on Eliquis who was recently admitted to [facility] for enterocolitis and was discharged on 08/10/2019 on cefuroxime and metronidazole. Patient presenting to ED complaining of bleeding and weakness. Last night when she was sleeping, felt the urge to go to the restroom, noted bright blood per rectum mixed with blood clots, this was repeated again later today with only bright blood per rectum, also complaining of dizziness, denies any chest pain, shortness of breath, syncope or presyncope, still complaining of mild abdominal pressure, denies any fever, chills, nausea, vomiting, diarrhea or any urinary symptoms. Hospital Course Hospital Course: (1) Acute lower GI bleeding H&H stable. No recurrence. Patient had 2 large nonbloody bowel movements. Likely due to Eliquis for underlying A. fib. Patient also has history of bleeding while on Coumadin. Had a conversation with patient about risk and benefits of continuing Eliquis patient is stating that she does not want to take Eliquis anymore and wants to be stopped. Admitted to telemetry, held Eliquis and aspirin, monitor H&H, transfuse if actively bleeding, hemoglobin less than 7, or symptomatic. (2) CAD (coronary artery disease) Denies any anginal symptoms. Hold antiplatelets due to acute GI bleed. Restarted on home meds. Advised to restart home meds including aspirin upon discharge. (3) Chronic atrial fibrillation Rate controlled. Eliquis on hold and DC'd as per patient request. Restarted on home meds. (4) GERD (gastroesophageal reflux disease) Restart home meds. (5) Hyperlipidemia Restart home meds. (6) Hypertension Euvolemic. Normotensive. Restart home meds. (7) Urinary retention Chronic. Patient had a Mccauley catheter placed last admission. Stated that she has an appointment with urologist but unfortunately had to be hospitalized for GI bleed. Continued on Flomax and Mccauley care. Mccauley catheter was replaced on admission. Patient greatly encouraged to follow- up with urologist as soon as possible. Patient voiced understanding. Physical Exam Vital Signs: Temp Pulse Resp BP Pulse Ox 97.6 F 70 16 131/50 H 99 08/13/19 11:58 08/13/19 11:58 08/13/19 11:58 08/13/19 11:58 08/13/19 11:58 Intake & Output 08/12/19 08/13/19 08/14/19 06:59 06:59 06:59 Intake Total 1000 552 Output Total 1375 3250 Balance -375 -2698 Weight 91.1 kg 88.9 kg General appearance: PRESENT: obese Head exam: PRESENT: atraumatic, normocephalic Respiratory exam: PRESENT: clear to auscultation wojciech. ABSENT: rales, rhonchi, wheezes Cardiovascular exam: PRESENT: RRR. ABSENT: diastolic murmur, rubs, systolic murmur Pulses: PRESENT: normal dorsalis pedis pul GI/Abdominal exam: PRESENT: normal bowel sounds, soft. ABSENT: distended, guarding, mass, organolmegaly, rebound, tenderness Neurological exam: PRESENT: alert, awake, oriented to person, oriented to place, oriented to time, oriented to situation, CN II-XII grossly intact. ABSENT: motor sensory deficit Results Laboratory Results: WBC 7.6 10^3/uL (4.0-10.5) 08/13/19 05:51 RBC 3.22 10^6/uL (3.72-5.28) L 08/13/19 05:51 Hgb 10.1 g/dL (12.0-15.5) L 08/13/19 05:51 Hct 29.1 % (36.0-47.0) L 08/13/19 05:51 MCV 90 fl (80-97) 08/13/19 05:51 MCH 31.2 pg (27.0-33.4) 08/13/19 05:51 MCHC 34.6 g/dL (32.0-36.0) 08/13/19 05:51 RDW 14.5 % (11.5-14.0) H 08/13/19 05:51 Plt Count 207 10^3/uL (150-450) 08/13/19 05:51 Lymph % (Auto) 11.6 % (13-45) L 08/13/19 05:51 [place] % (Auto) 12.8 % (3-13) 08/13/19 05:51 Eos % (Auto) 2.4 % (0-6) 08/13/19 05:51 Baso % (Auto) 0.5 % (0-2) 08/13/19 05:51 Absolute Neuts (auto) 5.5 10^3/uL (1.7-8.2) 08/13/19 05:51 Absolute Lymphs (auto) 0.9 10^3/uL (0.5-4.7) 08/13/19 05:51 Absolute Monos (auto) 1.0 10^3/uL (0.1-1.4) 08/13/19 05:51 Absolute Eos (auto) 0.2 10^3/uL (0.0-0.6) 08/13/19 05:51 Absolute Basos (auto) 0.0 10^3/uL (0.0-0.2) 08/13/19 05:51 Seg Neutrophils % 72.7 % (42-78) 08/13/19 05:51 PT 17.3 SEC (11.4-15.4) H 08/12/19 05:03 INR 1.40 08/12/19 05:03 APTT 30.7 SEC (23.5-35.8) 08/11/19 14:01 Sodium 138.9 mmol/L (137-145) 08/12/19 05:03 Potassium 3.6 mmol/L (3.6-5.0) 08/12/19 05:03 Chloride 108 mmol/L (98-107) H 08/12/19 05:03 Carbon Dioxide 25 mmol/L (22-30) 08/12/19 05:03 Anion Gap 6 (5-19) 08/12/19 05:03 BUN 10 mg/dL (7-20) 08/12/19 05:03 Creatinine 0.80 mg/dL (0.52-1.25) 08/12/19 05:03 Est GFR ( Amer) > 60 (>60) 08/12/19 05:03 Est GFR (MDRD) Non-Af > 60 (>60) 08/12/19 05:03 Glucose 87 mg/dL (75-110) 08/12/19 05:03 Calcium 8.0 mg/dL (8.4-10.2) L 08/12/19 05:03 Magnesium 1.7 mg/dL (1.6-2.3) 08/12/19 05:03 Total Bilirubin 0.3 mg/dL (0.2-1.3) 08/12/19 05:03 Direct Bilirubin 0.1 mg/dL (0.0-0.4) 08/12/19 05:03 Neonat Total Bilirubin Not Reportable 08/12/19 05:03 Neonat Direct Bilirubin Not Reportable 08/12/19 05:03 Neonat Indirect Bili Not Reportable 08/12/19 05:03 AST 17 U/L (14-36) 08/12/19 05:03 ALT 8 U/L (<35) 08/12/19 05:03 Alkaline Phosphatase 46 U/L (38-126) 08/12/19 05:03 Total Protein 4.8 g/dL (6.3-8.2) L 08/12/19 05:03 Albumin 2.5 g/dL (3.5-5.0) L 08/12/19 05:03 Urine Color YELLOW 08/11/19 14:42 Urine Appearance TURBID 08/11/19 14:42 Urine pH 5.0 (5.0-9.0) 08/11/19 14:42 Ur Specific [place] 1.019 08/11/19 14:42 Urine Protein 30 mg/dL (NEGATIVE) H 08/11/19 14:42 Urine Glucose (UA) NEGATIVE mg/dL (NEGATIVE) 08/11/19 14:42 Urine Ketones NEGATIVE mg/dL (NEGATIVE) 08/11/19 14:42 Urine Blood SMALL (NEGATIVE) H 08/11/19 14:42 Urine Nitrite (Reflex) NEGATIVE (NEGATIVE) 08/11/19 14:42 Urine Bilirubin NEGATIVE (NEGATIVE) 08/11/19 14:42 Urine Urobilinogen NEGATIVE mg/dL (<2.0) 08/11/19 14:42 Leukocyte Esterase Rfl SMALL (NEGATIVE) H 08/11/19 14:42 Urine RBC (Auto) 25 /HPF 08/11/19 14:42 Urine Bacteria (Auto) TRACE /HPF 08/11/19 14:42 Urine WBC (Reflex) 14 /HPF 08/11/19 14:42 Squamous Epi Cells Auto 3 /HPF 08/11/19 14:42 Calcium Oxalate Cr Auto MODERATE /HPF 08/11/19 14:42 Urine Mucus (Auto) MANY /LPF 08/11/19 14:42 Urine Ascorbic Acid 40 (NEGATIVE) H 08/11/19 14:42 Blood Type O POSITIVE 08/11/19 15:25 Antibody Screen NEGATIVE 08/11/19 15:25 Crossmatch See Detail 08/11/19 15:25 Stroke Is this a Stroke Patient?: No Acute Heart Failure - Is this a Heart Failure Patient?: No
[2019-08-13 16:03] VITALS: BP 132/61
== END 2019-08-13 16:15 | disposition home or self-care (01) | DRG 378 ==
LOC: ER 14:11 → EH 17:44 → 3S 20:15
PROVIDERS: ADMIT Internal Medicine; ATTEND Internal Medicine
DX: K92.2 Gastrointestinal hemorrhage, unspecified (principal); I48.20 Chronic atrial fibrillation, unspecified; K21.9 Gastro-esophageal reflux disease without esophagitis; I25.10 Atherosclerotic heart disease of native coronary artery without angina pectoris; E78.5 Hyperlipidemia, unspecified; I10 Essential (primary) hypertension; R33.9 Retention of urine, unspecified; E66.9 Obesity, unspecified; M19.90 Unspecified osteoarthritis, unspecified site; I45.10 Unspecified right bundle-branch block; Z79.82 Long term (current) use of aspirin; Z95.1 Presence of aortocoronary bypass graft; Z95.5 Presence of coronary angioplasty implant and graft; I25.2 Old myocardial infarction; Z87.891 Personal history of nicotine dependence; Z88.3 Allergy status to other anti-infective agents; Z86.73 Personal history of transient ischemic attack (TIA), and cerebral infarction without residual deficits; Z68.36 Body mass index [BMI] 36.0-36.9, adult; Z82.49 Family history of ischemic heart disease and other diseases of the circulatory system
CPT/HCPCS: 36415; 80053; 81001; 83735; 85025; 85610; 85730; 86850; 86900; 86901; 86920; 87086; 93005; 93010; 96360; 96361; 99285; C9113; J0360; J3490; J7030

== ENCOUNTER 2019-08-19 21:07 | Emergency (ER) | payer MEDICARE, OTHER ==
--- NOTE | 2019-08-19 22:19 | ER Document Report ---
ED General - General Chief Complaint: Knee Pain Stated Complaint: LEFT KNEE PAIN,DIZZINESS Time Seen by Provider: 08/19/19 21:59 Primary Care Provider: ETHAN MCMAHON MD [Primary Care Provider] - Follow up as needed Mode of Arrival: Ambulatory Information source: Patient TRAVEL OUTSIDE OF THE [place] IN LAST 30 DAYS: No - HPI Onset: Other - over the last few days Onset/Duration: Gradual Quality of pain: No pain Severity: None Pain Level: Denies Associated symptoms: Diarrhea, Weakness, Other - Dizziness Exacerbated by: Other - Exertion Relieved by: Denies Similar symptoms previously: No Recently seen / treated by doctor: No Notes: 84 year old female with a history of AFib (no longer on Eliquis due to recent GI Bleed), HTN, HLD, DM, CAD, GERD here for generalized weakness. The patient was just admitted to the hospital twice for enterocolitis and then a GI Bleed (most recently discharged on 08/13/19). The patient is still on antibiotics and she is still having diarrhea. The patient denies fevers, sweats, cough, chest pain, abdominal pain, urinary symptoms but she endorses chills and mild shortness of breath. The patient has not seen blood in her stool recently. - Related Data Allergies/Adverse Reactions: levofloxacin [From Levaquin] Allergy (Severe, Verified 08/11/19 14:18) Diarrhea Past Medical History - Social History Smoking Status: Former Smoker Frequency of alcohol use: None Drug Abuse: None Family History: Hypertension, Malignancy Patient has suicidal ideation: No Patient has homicidal ideation: No - Past Medical History Cardiac Medical History: Reports: Hx Coronary Artery Disease, Hx Heart Attack, Hx Hypercholesterolemia, Hx Hypertension Denies: Hx Atrial Fibrillation, Hx Congestive Heart Failure, Hx Peripheral Vascular Disease, Hx Heart Murmur Pulmonary Medical History: Denies: Hx Asthma, Hx Bronchitis, Hx COPD, Hx Pneumonia, Hx Tuberculosis Neurological Medical History: Reports: Hx Cerebrovascular Accident. Denies: Hx Seizures Endocrine Medical History: Denies: Hx Diabetes Mellitus Type 1, Hx Diabetes Mellitus Type 2, Hx Hyperthyroidism, Hx Hypothyroidism Renal/ Medical History: Denies: Hx Peritoneal Dialysis GI Medical History: Reports: Hx Gastroesophageal Reflux Disease. Denies: Hx Cirrhosis, Hx Hepatitis Musculoskeletal Medical History: Reports Hx Arthritis, Denies Hx Gout Skin Medical History: Denies Hx Eczema, Denies Hx Psoriasis Psychiatric Medical History: Denies: Hx Depression Infectious Medical History: Denies: Hx Hepatitis Past Surgical History: Reports: Hx Cardiac Catheterization, Hx Cardiac Surgery - "bypass", Hx Coronary Artery Bypass Graft, Hx Coronary Stent, Hx Hysterectomy, Hx Tubal Ligation. Denies: Hx Appendectomy, Hx Bowel Surgery, Hx Section, Hx Cholecystectomy, Hx Gastric Bypass Surgery, Hx Herniorrhaphy, Hx Mastectomy, Hx Pacemaker, Hx Tonsillectomy - Immunizations Hx Diphtheria, Pertussis, Tetanus Vaccination: No Review of Systems - Review of Systems Constitutional: Chills, Weakness, Recent illness EENT: No symptoms reported Cardiovascular: No symptoms reported Respiratory: Short of breath Gastrointestinal: Diarrhea Genitourinary: No symptoms reported Female Genitourinary: No symptoms reported Musculoskeletal: No symptoms reported Skin: No symptoms reported Hematologic/Lymphatic: No symptoms reported Neurological/Psychological: No symptoms reported Physical Exam - Vital signs Vitals: Temp Pulse Resp BP Pulse Ox 98.5 F 81 16 154/71 H 95 08/19/19 21:45 08/19/19 21:45 08/19/19 21:45 08/19/19 21:45 08/19/19 21:45 - Notes Notes: GENERAL: Well-appearing, well-nourished and in no acute distress. HEAD: Atraumatic, normocephalic. EYES: Pupils equal round and reactive to light, extraocular movements intact, sclera anicteric, conjunctiva are normal. ENT: Nares patent, oropharynx clear without exudates. Moist mucous membranes. NECK: Normal range of motion, supple without lymphadenopathy or JVD. LUNGS: Breath sounds clear to auscultation bilaterally and equal. No wheezes rales or rhonchi. HEART: Regular rate and rhythm without murmurs, rubs or gallops. ABDOMEN: Soft, nontender, normoactive bowel sounds. No guarding, no rebound. No masses appreciated. EXTREMITIES: Normal range of motion, no pitting or edema. No clubbing or cyanosis. NEUROLOGICAL: Cranial nerves II through XII grossly intact. Normal speech, normal gait. PSYCH: Normal mood, normal affect. SKIN: Warm, Dry, normal turgor, no rashes or lesions noted. Course - Re-evaluation Re-evalutation: 08/20/19 01:50 The patient is here for generalized weakness and dizziness. Her H/H is stable from her last hospitalization and she denies any new GI bleeding. The patient's UA looks infectious but it is from an indwelling leos. Patient was awake and alert in the ER and in no distress with normal vital signs. The patient was told to follow up with her PCP and Urologist since she has an indwelling Leos which will need management. - Vital Signs Vital signs: Temp Pulse Resp BP Pulse Ox 98.5 F 81 12 134/61 H 99 08/19/19 22:00 08/19/19 21:45 08/19/19 23:49 08/20/19 00:01 08/20/19 00:01 - Laboratory Result Diagrams: 08/19/19 23:35 08/19/19 23:35 Laboratory results interpreted by me: 08/19/19 08/19/19 08/19/19 23:35 23:35 23:35 RBC 2.93 L Hgb 9.0 L Hct 26.7 L RDW 15.0 H Lymph % (Auto) 9.3 L Absolute Lymphs (auto) 0.4 L Seg Neutrophils % 79.4 H Sodium 133.1 L Est GFR (MDRD) Non-Af 52 L Glucose 124 H NT-Pro-B Natriuret Pep 972 H Total Protein 5.7 L Albumin 3.0 L Urine Protein Urine Blood Ur Leukocyte Esterase Urine Ascorbic Acid 08/19/19 23:55 RBC Hgb Hct RDW Lymph % (Auto) Absolute Lymphs (auto) Seg Neutrophils % Sodium Est GFR (MDRD) Non-Af Glucose NT-Pro-B Natriuret Pep Total Protein Albumin Urine Protein 30 H Urine Blood SMALL H Ur Leukocyte Esterase LARGE H Urine Ascorbic Acid 40 H - EKG Interpretation by Me EKG shows normal: Sinus rhythm, ST-T Waves - T wave inversions in aVR, V1 Rate: Normal Rhythm: NSR Discharge - Discharge Clinical Impression: Weakness, Dizziness Condition: Stable Disposition: HOME, SELF-CARE Instructions: Dizziness ([facility]), Weakness ([facility]) Additional Instructions: Follow up with your primary care doctor. Continue taking the medications you were discharged with on your last admission. Seek medical attention for fevers, chills, sweats, nausea, vomiting, or if worse. Follow up with a Urologist for management of your Leos and urinary retention. Referrals: ETHAN MCMAHON MD [Primary Care Provider] - Follow up as needed
--- NOTE | 2019-08-19 23:38 | RADIOLOGY REPORT (SQ) ---
EXAM DESCRIPTION: XR CHEST 2 VIEWS COMPLETED DATE/TME: 08/19/2019 22:31 CLINICAL HISTORY: 84 years Female, shortness of breath COMPARISON:Sep 28 2018 NUMBER OF VIEWS/TECHNIQUE: 2, Frontal, Lateral FINDINGS: Adequate lung volume, pulmonary vascular congestion, normal cardiac silhouette, and intact bony thorax.Atherosclerotic vascular disease. Old granulomatous disease. Sternotomy. IMPRESSION: Pulmonary vascular congestion.
[2019-08-19 23:45] LABS: ABSOLUTE LYMPHOCYTES (AUTO) 0.4 10^3/uL (0.5-4.7); ABSOLUTE MONOCYTES (AUTO) 0.4 10^3/uL (0.1-1.4); ABSOLUTE NEUT (AUTO) 3.3 10^3/uL (1.7-8.2); BASOPHILS % (AUTO) 0.3 % (0-2); EOSINOPHILS % (AUTO) 0.6 % (0-6); HEMATOCRIT 26.7 % (36.0-47.0); LYMPHOCYTES % (AUTO) 9.3 % (13-45); MEAN CORPUSCULAR HEMOGLOBIN 30.8 pg (27.0-33.4); MEAN CORPUSCULAR HGB CONC 33.8 g/dL (32.0-36.0); MEAN CORPUSCULAR VOLUME 91 fl (80-97); MONOCYTES % (AUTO) 10.4 % (3-13); PLATELET COUNT 304 10^3/uL (150-450); RED BLOOD COUNT 2.93 10^6/uL (3.72-5.28); SEGMENTED NEUTROPHILS % (AUTO) 79.4 % (42-78); TOTAL CELLS COUNTED % (AUTO) 100 %; WHITE BLOOD COUNT 4.1 10^3/uL (4.0-10.5)
[2019-08-20 00:08] LABS: ALKALINE PHOSPHATASE 55 U/L (38-126); ANION GAP 7 (5-19); ASPARTATE AMINO TRANSFERASE 16 U/L (14-36); BILIRUBIN,DIRECT 0.1 mg/dL (0.0-0.4); BILIRUBIN,TOTAL 0.3 mg/dL (0.2-1.3); BLOOD UREA NITROGEN 16 mg/dL (7-20); CALCIUM 8.4 mg/dL (8.4-10.2); CARBON DIOXIDE 27 mmol/L (22-30); CHLORIDE 99 mmol/L (98-107); GLUCOSE 124 mg/dL (75-110); POTASSIUM 3.9 mmol/L (3.6-5.0); TOTAL PROTEIN 5.7 g/dL (6.3-8.2)
[2019-08-20 00:19] LABS: NT PRO BNP 972 pg/mL (<450); TROPONIN I < 0.012 ng/mL
[2019-08-20 00:25] LABS: APPEARANCE,URINE CLOUDY; BILIRUBIN,URINE NEGATIVE (NEGATIVE); COLOR,URINE YELLOW; GLUCOSE, URINE NEGATIVE (NEGATIVE); KETONES,URINE NEGATIVE (NEGATIVE); LEUKOCYTE ESTERASE,URINE LARGE (NEGATIVE); NITRITE,URINE NEGATIVE (NEGATIVE); PROTEIN,URINE 30 mg/dL (NEGATIVE); URINE SPECIFIC GRAVITY 1.015; UROBILINOGEN,URINE NEGATIVE mg/dL (<2.0)
[2019-08-20] MEDS ORDERED: CEFTRIAXONE 1 GM/D5W RTU 50 ML IV ONE (01:41)
[2019-08-20 02:30] VITALS: BP 128/78
--- NOTE | 2019-08-20 13:09 | EKG REPORT ---
SEVERITY:- BORDERLINE ECG - SINUS RHYTHM BORDERLINE R WAVE PROGRESSION, ANTERIOR LEADS : Confirmed by: Mary Eugene MD 20-Aug-2019 13:09:24
== END 2019-08-20 02:10 | disposition home or self-care (01) ==
LOC: ER 21:07
DX: R42 Dizziness and giddiness (principal); R53.1 Weakness; K52.9 Noninfective gastroenteritis and colitis, unspecified; R68.83 Chills (without fever); R06.02 Shortness of breath; R79.89 Other specified abnormal findings of blood chemistry; I25.10 Atherosclerotic heart disease of native coronary artery without angina pectoris; I10 Essential (primary) hypertension; Z88.1 Allergy status to other antibiotic agents; Z95.1 Presence of aortocoronary bypass graft; Z95.5 Presence of coronary angioplasty implant and graft
CPT/HCPCS: 36415; 71046; 80053; 81001; 83880; 84484; 85025; 87086; 87088; 87186; 93005; 93010; 99284

== ENCOUNTER 2019-08-22 10:08 | Observation (INO) | payer MEDICARE ==
--- NOTE | 2019-08-22 12:27 | ER Document Report ---
ED General - General Chief Complaint: Back Pain Stated Complaint: PAIN ALL OVER Time Seen by Provider: 08/22/19 12:25 TRAVEL OUTSIDE OF THE [place] IN LAST 30 DAYS: No - HPI Notes: 84 wm history of dm htn on Norvasc and Imdur, nitroglycerin; CABG, 6 subsequent stents last September 2018, atrial fibrillation who had been on Eliquis until she was discharged on 08-11-19 from last of a few hospital admissions in the last few weeks. She is continue to take the 81 mg aspirin daily no other NSAIDs. She also had just been discharged the day before on 08/10/2019 on cefuroxime and metronidazole for colitis. Did not follow-up with urologist last week to assess for removing her indwelling Mccauley that was placed for urinary retention. Now today she is [facility] with overall worsening weakness in the last few days. She denies shortness of breath or chest pain passing out or falls. says he noticed that her stools were slightly red again in the last day. She had a few weeks ago she was able to use her walker and get around the house but really since discharged has been using wheelchair only and even lately needing him for assistance to transfer. She has had she says one session with physical the rapist as an outpatient and they walked her short distance. She says she is willing to undergo more intensive therapy because she thinks every day she lays in the bed she seems more weak. Overall patient and report since was diagnosed with colitis x2 weeks prior bleeding is improving. In triage providers noted that she was soiled and did have some acute overt blood in her stool sample they cleaned with what appeared to be clots and 3L NC applied for initial SPO2 on 88% RA". She denies any syncope or palpitations. She has been taking all her meds except for the Eliquis. She says has not been much change in her lower extremity edema but overall she has weakness on any very minimal exertion trying to lift herself rollover or transfer from wheelchair. - Related Data Allergies/Adverse Reactions: levofloxacin [From Levaquin] Allergy (Severe, Verified 08/11/19 14:18) Diarrhea Past Medical History - General Information source: Patient, Friend - - Social History Smoking Status: Unknown if Ever Smoked Frequency of alcohol use: None Drug Abuse: None Lives with: Spouse/Significant other Family History: Hypertension, Malignancy Patient has suicidal ideation: No Patient has homicidal ideation: No - Past Medical History Cardiac Medical History: Reports: Hx Coronary Artery Disease, Hx Heart Attack, Hx Hypercholesterolemia, Hx Hypertension Denies: Hx Atrial Fibrillation, Hx Congestive Heart Failure, Hx Peripheral Vascular Disease, Hx Heart Murmur Pulmonary Medical History: Denies: Hx Asthma, Hx Bronchitis, Hx COPD, Hx Pneumonia, Hx Tuberculosis Neurological Medical History: Reports: Hx Cerebrovascular Accident. Denies: Hx Seizures Endocrine Medical History: Denies: Hx Diabetes Mellitus Type 1, Hx Diabetes Mellitus Type 2, Hx Hyperthyroidism, Hx Hypothyroidism Renal/ Medical History: Denies: Hx Peritoneal Dialysis GI Medical History: Reports: Hx Gastroesophageal Reflux Disease. Denies: Hx Cirrhosis, Hx Hepatitis Musculoskeletal Medical History: Reports Hx Arthritis, Denies Hx Gout Skin Medical History: Denies Hx Eczema, Denies Hx Psoriasis Psychiatric Medical History: Denies: Hx Depression Infectious Medical History: Denies: Hx Hepatitis Past Surgical History: Reports: Hx Cardiac Catheterization, Hx Cardiac Surgery - "bypass", Hx Coronary Artery Bypass Graft, Hx Coronary Stent, Hx Hysterectomy, Hx Tubal Ligation. Denies: Hx Appendectomy, Hx Bowel Surgery, Hx Section, Hx Cholecystectomy, Hx Gastric Bypass Surgery, Hx Herniorrhaphy, Hx Mastectomy, Hx Pacemaker, Hx Tonsillectomy - Immunizations Hx Diphtheria, Pertussis, Tetanus Vaccination: No Review of Systems - Review of Systems Constitutional: Malaise, Weakness. denies: Chills, Diaphoresis, Fever, Weight gain, Weight loss EENT: No symptoms reported. denies: Eye pain, Blurred vision, Throat pain, Difficulty swallowing, Throat swelling, Vertigo Cardiovascular: denies: Chest pain, Palpitations, Orthopnea, Syncope Respiratory: denies: Cough, Hurts to breathe Gastrointestinal: No symptoms reported Genitourinary: No symptoms reported Female Genitourinary: No symptoms reported Musculoskeletal: No symptoms reported Skin: No symptoms reported Hematologic/Lymphatic: No symptoms reported Neurological/Psychological: No symptoms reported Physical Exam - Vital signs Vitals: Temp Pulse Resp BP Pulse Ox 98.9 F 86 16 149/62 H 94 08/22/19 10:51 08/22/19 10:51 08/22/19 10:51 08/22/19 10:51 08/22/19 10:51 Interpretation: Normal, Other - Appears frail, accompanied by , pallid. At rest 92% on room air answering questions and otherwise at rest. No other evidence of respiratory distress. No: Hypotensive, Hypertensive, Tachypneic, Febrile - General General appearance: Appears well, Alert - HEENT Head: Normocephalic, Atraumatic Eyes: Normal. No: Pale conjunctiva Conjunctiva: No: Icteric, Injected Extraocular movements intact: Yes Pupils: PERRL Mouth/Lips: No: Laceration, Lesions Mucous membranes: No: Moist Pharynx: Normal. No: Blood in hypopharynx, Erythema, Exudate Neck: Supple. No: Lymphadenopathy - Respiratory Respiratory status: No respiratory distress - Distant lung sounds to auscultation cannot get any good rales. Chest status: Nontender. No: No pleuritic chest pain Breath sounds: Normal. No: Nonproductive cough, Productive cough, Rales, Rhonchi, Stridor Chest palpation: Normal. No: Tender, Ecchymosis, Wounds - Cardiovascular Rhythm: Regular Heart sounds: Normal auscultation Murmur: No Gallop: None auscultated Pulses: Normal: Radial, Dorsalis pedis Normal capillary refill: Yes Notes: Bilateral lower extremity edema 1+ symmetric nontender. - Abdominal Inspection: Normal Distension: No distension Bowel sounds: Normal Tenderness: Nontender Organomegaly: No organomegaly - Rectal Stool: Heme positive, Other - Brownish stool with maroon streaks Hemorrhoids: External. No: Anal fissure, Mass - Genitourinary External exam: Other - Mccauley leg bag in place clear dark yellow urine without any sediment. - Back Back: Normal, Nontender. No: Deformity/step-off, CVA tenderness, Vertebra tenderness, Wounds - Extremities General upper extremity: Other - No skin breakdown on any of the extremities, no focal weakness is able to resist gravity 4/5 bilateral lower hip flexors. Ankle plantar and dorsiflexion symmetric 4/5. Proximal shoulder strength 4 out of 5. 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 She has decreased muscle tone overall increased adipose tissue no wasting. General lower extremity: No: Fouzia's sign - Neurological Neuro grossly intact: Yes Cognition: Normal Orientation: AAOx4 Cameron Coma Scale Eye Opening: Spontaneous Mahesh Coma Scale Verbal: Oriented Mahesh Coma Scale Motor: Obeys Commands Mahesh Coma Scale Total: 15 Speech: Normal Motor strength normal: LUE, RUE, LLE, RLE Sensory: Normal - Psychological Associated symptoms: Normal affect, Normal mood - Skin Skin Temperature: Warm Skin Moisture: Dry Skin Color: Normal Course - Re-evaluation Re-evalutation: 08/22/19 14:57 Positive fecal occult blood and gross maroon blood on my rectal exam on initial examination. Also blood clots on initial soiled underwear per staff in triage. No further bowel movements while in the ED or any hemodynamic instability. BNP is very slightly elevated compared to last but then is markedly overall increased from few months ago. Her chest x-ray today I think does look like there is more cephalization more pulmonary congestion overall. She does have bilateral edema symmetric lower extremities warm well perfused. I think this probably is for this geriatric patient a combination of continued downtrend in her hemoglobin and continued downtrend in her cardiac output. Hospitalist to see patient is currently in no distress on nasal cannula and has no hypoxia on 3 L nasal cannula. Taken off nasal cannula she has no evidence of increased work of breathing at rest talking. She remains 92% room air. Her vital signs remained within normal limits. I agree I worry that hospitalization will overall continue to make her more debilitated and probably what she needs is more so intensive rehab. Still I do worry that she might need follow-up with her magneto specialist to obtain formal echo and albuterol will need follow-up to ensure that her hemoglobin does not continue to slowly drop secondary to his colitis. 08/22/19 17:07 - Vital Signs Vital signs: Temp Pulse Resp BP Pulse Ox 98.9 F 86 16 149/62 H 94 08/22/19 10:51 08/22/19 10:51 08/22/19 10:51 08/22/19 10:51 08/22/19 10:51 - Laboratory Result Diagrams: 08/22/19 13:15 08/22/19 13:15 Laboratory results interpreted by me: 08/22/19 08/22/19 08/22/19 13:15 13:15 13:15 RBC 2.76 L Hgb 8.5 L Hct 25.0 L RDW 14.7 H Lymph % (Auto) 12.6 L [place] % (Auto) 16.5 H Sodium 131.9 L Chloride 97 L Calcium 8.2 L NT-Pro-B Natriuret Pep 1080 H Total Protein 5.1 L Albumin 2.6 L Ur Leukocyte Esterase Urine Ascorbic Acid 08/22/19 13:20 RBC Hgb Hct RDW Lymph % (Auto) [place] % (Auto) Sodium Chloride Calcium NT-Pro-B Natriuret Pep Total Protein Albumin Ur Leukocyte Esterase SMALL H Urine Ascorbic Acid 40 H Discharge - Discharge Clinical Impression: Weakness, Lower gastrointestinal bleeding, CHF (congestive heart failure) Condition: Poor Disposition: ADMITTED INPATIENT Admitting Provider: Chelle (Hospitalist) Unit Admitted: Medical Floor
[2019-08-22 13:44] LABS: APPEARANCE,URINE SLIGHTLY-CLOUDY; BILIRUBIN,URINE NEGATIVE (NEGATIVE); CALCIUM OXALATE CRYSTALS,URINE FEW /HPF; COLOR,URINE YELLOW; GLUCOSE, URINE NEGATIVE (NEGATIVE); KETONES,URINE NEGATIVE (NEGATIVE); LEUKOCYTE ESTERASE,URINE SMALL (NEGATIVE); NITRITE,URINE NEGATIVE (NEGATIVE); PROTEIN,URINE NEGATIVE (NEGATIVE); URINE SPECIFIC GRAVITY 1.016; UROBILINOGEN,URINE NEGATIVE mg/dL (<2.0)
[2019-08-22 13:49] LABS: ABSOLUTE LYMPHOCYTES (AUTO) 0.5 10^3/uL (0.5-4.7); ABSOLUTE MONOCYTES (AUTO) 0.7 10^3/uL (0.1-1.4); ABSOLUTE NEUT (AUTO) 2.8 10^3/uL (1.7-8.2); BASOPHILS % (AUTO) 0.2 % (0-2); EOSINOPHILS % (AUTO) 0.4 % (0-6); HEMOGLOBIN 8.5 g/dL (12.0-15.5); LYMPHOCYTES % (AUTO) 12.6 % (13-45); MEAN CORPUSCULAR HEMOGLOBIN 30.8 pg (27.0-33.4); MEAN CORPUSCULAR HGB CONC 34.1 g/dL (32.0-36.0); MEAN CORPUSCULAR VOLUME 90 fl (80-97); MONOCYTES % (AUTO) 16.5 % (3-13); PLATELET COUNT 269 10^3/uL (150-450); RED BLOOD COUNT 2.76 10^6/uL (3.72-5.28); RED CELL DISTRIBUTION WIDTH 14.7 % (11.5-14.0); SEGMENTED NEUTROPHILS % (AUTO) 70.3 % (42-78); TOTAL CELLS COUNTED % (AUTO) 100 %
[2019-08-22 14:04] LABS: ALBUMIN 2.6 g/dL (3.5-5.0); ALKALINE PHOSPHATASE 47 U/L (38-126); ANION GAP 7 (5-19); ASPARTATE AMINO TRANSFERASE 14 U/L (14-36); BILIRUBIN,DIRECT 0.1 mg/dL (0.0-0.4); BILIRUBIN,TOTAL 0.3 mg/dL (0.2-1.3); BLOOD UREA NITROGEN 15 mg/dL (7-20); CALCIUM 8.2 mg/dL (8.4-10.2); CARBON DIOXIDE 28 mmol/L (22-30); CHLORIDE 97 mmol/L (98-107); GLUCOSE 95 mg/dL (75-110); POTASSIUM 4.3 mmol/L (3.6-5.0); TOTAL PROTEIN 5.1 g/dL (6.3-8.2)
[2019-08-22 14:12] LABS: NT PRO BNP 1080 pg/mL (<450)
[2019-08-22 14:21] LABS: TROPONIN I < 0.012 ng/mL
--- NOTE | 2019-08-22 15:02 | RADIOLOGY REPORT (SQ) ---
EXAM DESCRIPTION: CHEST 2 VIEWS COMPLETED DATE/TIME: 08/22/2019 2:49 pm REASON FOR STUDY: sob COMPARISON: 08/19/2019 NUMBER OF VIEWS: Two views. TECHNIQUE: Frontal and lateral radiographic views of the chest acquired. LIMITATIONS: None. FINDINGS: LUNGS AND PLEURA: No opacities, masses or pneumothorax. No pleural effusion. MEDIASTINUM AND HILAR STRUCTURES: No masses or contour abnormality. HEART AND VASCULAR STRUCTURES: Cardiac enlargement. Vascular congestion. BONES: No acute findings. HARDWARE: None in the chest. OTHER: No other significant finding. IMPRESSION: CARDIAC ENLARGEMENT. VASCULAR CONGESTION. TECHNICAL DOCUMENTATION: JOB ID: [id number] [employer]- All Rights Reserved Reading location - IP/workstation name: [email or web address]
[2019-08-22] MEDS ORDERED: TRAMADOL HCL 50 MG TABLET PO PRN (16:11)
[2019-08-22] MEDS ORDERED: ACETAMINOPHEN 325 MG TABLET PO PRN (16:11)
[2019-08-22] MEDS ORDERED: NITROGLYCERIN 0.4 MG/TAB 25 TAB/BOTTLE SL PRN (16:18)
--- NOTE | 2019-08-22 17:06 | PDOC H&P ---
History of Present Illness Admission Date/PCP: ETHAN MCMAHON MD Patient complains of: Leg weakness History of Present Illness: SUNITA BALLESTEROS is a 84 year old female with a history of diabetes, dyslipidemia, hypertension, coronary artery disease presenting complaining of weakness. Patient states that she has weakness in her arms and legs and her legs give out today. She is mostly concerned that she continues to have weakness in her legs limiting her ambulation and that was what prompted her visit today. In the emergency department, patient endorsed some hematochezia and hemoglobin showed 8.5. ER concerned about drop of hemoglobin from 10 on last discharge to 8.5 in the setting of endorsing hematochezia and requested hospitalist service for admission. Patient states that she sees some streaks of blood but states that it is a whole lot better than it was when she was hospitalized over 2 weeks ago for enterocolitis. Patient denies any shortness of breath or lightheadedness. Patient denies any dark tarry stools, hematemesis, hematuria or hemoptysis. Patient otherwise feels well besides weakness in the legs. Past Medical History Cardiac Medical History: Reports: Coronary Artery Disease, Myocardial Infarction, Hyperlipidema, Hypertension Denies: Atrial Fibrillation, Congestive Heart Failure, Peripheral Vascular Disease, Heart Murmur Pulmonary Medical History: Denies: Asthma, Bronchitis, Chronic Obstructive Pulmonary Disease (COPD), Pneumonia, Tuberculosis Neurological Medical History: Denies: Seizures Endocrine Medical History: Denies: Diabetes Mellitus Type 1, Diabetes Mellitus Type 2, Hyperthyroidism, Hypothyroidism GI Medical History: Reports: Gastroesophageal Reflux Disease Denies: Cirrhosis, Hepatitis Musculoskeltal Medical History: Reports: Arthritis Denies: Gout Skin Medical History: Denies: Eczema, Psoriasis Psychiatric Medical History: Denies: Depression Hematology: Denies: Anemia, Bleeding Tendencies Past Surgical History Past Surgical History: Reports: Cardiac Catheterization, Coronary Artery Bypass Graft, Coronary Stent, Hysterectomy, Tubal Ligation Denies: Appendectomy, Section, Cholecystectomy, Gastric Bypass Surgery, Herniorrhaphy, Mastectomy, Pacemaker, Tonsillectomy Social History Smoking Status: Unknown if Ever Smoked Frequency of Alcohol Use: None Hx Recreational Drug Use: No Drugs: None Hx Prescription Drug Abuse: No - Advance Directive Resuscitation Status: Do Not Intubate - CPR only Family History Family History: Hypertension, Malignancy Parental Family History Reviewed: Yes Children Family History Reviewed: NA Sibling(s) Family History Reviewed.: Yes Medication/Allergy Home Medications: Acetaminophen [Acetaminophen 8 Hour] 1,300 mg PO Q8HP PRN 08/11/19 Amlodipine Besylate [Norvasc 5 mg Tablet] 5 mg PO Q12 08/11/19 Ascorbic Acid [Vitamin C 500 mg Tablet] 500 mg PO BID 08/11/19 Aspirin [Adult Low Dose Aspirin EC] 81 mg PO DAILY 08/11/19 Cyanocobalamin (Vitamin B-12) [Vitamin B-12] 1,000 mcg PO DAILY 08/11/19 Cyclosporine 0.05% Oph Emulsio [Restasis 0.05% Oph Emulsion Pf 0.4 ml] 4 drop OU BID 08/11/19 Docusate Sodium [Colace] 100 mg PO BID 08/11/19 Isosorbide Mononitrate [Isosorbide Mononitrate ER] 120 mg PO QPM 08/11/19 Magnesium 250 mg PO DAILY 08/11/19 Nitroglycerin [Nitrolingual] 4.9 gm TL Q5MP PRN 08/11/19 [place]-3 Fatty Acids/Fish Oil [[place] 3 Fish Oil Softgel] 1 each PO BID 08/11/19 Pramipexole Di-HCl [Mirapex 0.25 mg Tablet] 0.25 mg PO QPM 08/11/19 Tramadol HCl [Ultram 50 mg Tablet] 50 mg PO Q12 08/11/19 Ubidecarenone [Coq-10] 200 mg PO BID 08/11/19 Vit A/Vit C/Vit E/Zinc/Copper [Preservision Areds Softgel] 1 each PO DAILY 08/11/19 l [place]/B Bifidum/B Longum [Christensen Colon Health Capsule] 1 each PO DAILY 08/11/19 Allergies/Adverse Reactions: levofloxacin [From Levaquin] Allergy (Severe, Verified 08/11/19 14:18) Diarrhea Review of Systems Constitutional: PRESENT: fatigue. ABSENT: chills Eyes: ABSENT: visual disturbances Ears: PRESENT: hearing changes - Chronic not acute Nose, Mouth, and Throat: ABSENT: headache(s) Cardiovascular: ABSENT: chest pain Respiratory: ABSENT: cough, dyspnea, hemoptysis, sputum Gastrointestinal: PRESENT: hematochezia. ABSENT: abdominal pain, hematemesis Genitourinary: ABSENT: hematuria Integumentary: ABSENT: diaphoresis Neurological: ABSENT: dizziness Endocrine: ABSENT: cold intolerance, heat intolerance Hematologic/Lymphatic: ABSENT: easy bleeding Physical Exam Vital Signs: Temp Pulse Resp BP Pulse Ox 98.9 F 86 16 149/62 H 94 08/22/19 10:51 08/22/19 10:51 08/22/19 10:51 08/22/19 10:51 08/22/19 10:51 Intake & Output 08/21/19 08/22/19 08/23/19 06:59 06:59 06:59 Weight 88.405 kg General appearance: PRESENT: no acute distress, cooperative Neck exam: ABSENT: JVD Respiratory exam: PRESENT: clear to auscultation wojciech, symmetrical, unlabored. ABSENT: tachypnea, wheezes Cardiovascular exam: PRESENT: RRR, +S1, +S2, systolic murmur. ABSENT: tachycardia GI/Abdominal exam: PRESENT: normal bowel sounds, soft. ABSENT: rebound, rigid, tenderness Rectal exam: PRESENT: hemorrhoids. ABSENT: bloody stool, fecal impaction, tenderness Extremities exam: PRESENT: other - Significant mostly nonpitting edema in both lower extremities Musculoskeletal exam: ABSENT: full ROM - Limited in flexion of the hips both l egs 4/5 at the hips b/l Neurological exam: PRESENT: alert, awake, oriented to person, oriented to place Psychiatric exam: ABSENT: agitated, anxious Results Laboratory Results: 08/22/19 13:15 08/22/19 13:15 08/22/19 08/22/19 08/22/19 13:15 13:15 13:15 WBC 4.0 RBC 2.76 L Hgb 8.5 L Hct 25.0 L MCV 90 MCH 30.8 MCHC 34.1 RDW 14.7 H Plt Count 269 Seg Neutrophils % 70.3 Sodium 131.9 L Potassium 4.3 Chloride 97 L Carbon Dioxide 28 Anion Gap 7 BUN 15 Creatinine 0.87 Est GFR ( Amer) > 60 Glucose 95 Calcium 8.2 L Magnesium 1.9 Total Bilirubin 0.3 AST 14 Alkaline Phosphatase 47 Total Protein 5.1 L Albumin 2.6 L Urine Color Urine Appearance Urine pH Ur Specific [place] Urine Protein Urine Glucose (UA) Urine Ketones Urine Blood Urine Nitrite Ur Leukocyte Esterase Urine WBC (Auto) Urine RBC (Auto) Blood Type O POSITIVE Antibody Screen NEGATIVE 08/22/19 13:20 WBC RBC Hgb Hct MCV MCH MCHC RDW Plt Count Seg Neutrophils % Sodium Potassium Chloride Carbon Dioxide Anion Gap BUN Creatinine Est GFR ( Amer) Glucose Calcium Magnesium Total Bilirubin AST Alkaline Phosphatase Total Protein Albumin Urine Color YELLOW Urine Appearance SLIGHTLY-CLOUDY Urine pH 5.0 Ur Specific [place] 1.016 Urine Protein NEGATIVE Urine Glucose (UA) NEGATIVE Urine Ketones NEGATIVE Urine Blood NEGATIVE Urine Nitrite NEGATIVE Ur Leukocyte Esterase SMALL H Urine WBC (Auto) 3 Urine RBC (Auto) 9 Blood Type Antibody Screen 08/22/19 13:15 Troponin I < 0.012 NT-Pro-B Natriuret Pep 1080 H Impressions: Chest X-Ray 08/22/19 13:02 IMPRESSION: CARDIAC ENLARGEMENT. VASCULAR CONGESTION. Assessment and Plan - Diagnosis (1) Acute on chronic anemia Is this a current diagnosis for this admission?: Yes Plan: Hb 8.5 on this admission. 10 on discharge several days ago. Normocytic anemia. Per my conversation with patient, patient's hematochezia is actually significantly improved and minimal at this point and patient is not symptomatic from her anemia. Rectal exam for me revealed brown stool and external hemorrhoids but no gross blood. Possible culprits include chronic small hemorrhoidal bleeds, chronic divert iculosis or resolving bleed from her recent enterocolitis but really no overwhelming acute bleed. Admit to OBS Monitor H&H overnight Stool softeners Check iron studies, B12 and folate. Outpatient f/u with GI if no significant drop (2) Lower gastrointestinal bleeding Is this a current diagnosis for this admission?: Yes Plan: See problem #1 (3) Muscle weakness of extremity Is this a current diagnosis for this admission?: Yes Plan: Patient's main reason for presenting today is b/l lower extremity weakness which is chronic. She has proximal b/l LE weakness and heavy nonpitting edema in both legs potentially lymphedema which makes ambulation difficult at times perry with deconditioning. check TSH She will need home PT/OT frequently to help with rehabilitation. SW consulted. (4) Elevated brain natriuretic peptide (BNP) level Is this a current diagnosis for this admission?: Yes Plan: BNP elevated as present before but clinically, patient denies any SOB, cough, orthopnea, PND or chest pain/tightness. On my evaluation, patient's spo2 is around 94% on room air throughout the length of our conversation. Given the clinical picture, this may simply be patient's baseline lab finding even with chronic cxr findings always showing some vascular congestion. I will moderately fluid restrict and give a one time dose of lasix iv but will opt not to diurese any further. - Time Time Spent with patient: 35 or more minutes
[2019-08-22] MEDS ORDERED: FUROSEMIDE INJ/PF 40 MG/4 ML SDV IV ONE (17:15)
[2019-08-22] MEDS: DOCUSATE SODIUM 100 MG CAPSULE PO SCH (17:32)
[2019-08-22] MEDS ORDERED: PRAMIPEXOLE DI-HCL 0.25 MG TABLET PO SCH (22:00)
[2019-08-22] MEDS ORDERED: ISOSORBIDE MONONITRATE 60 MG TAB.ER.24H PO SCH (22:00)
[2019-08-22] MEDS ORDERED: PRAMIPEXOLE DI-HCL 0.25 MG TABLET ONE (22:46)
[2019-08-22] MEDS ORDERED: CYCLOSPORINE 0.05% OPH EMULSIO 0.4 ML DROPERETTE ONE (22:47)
[2019-08-22] MEDS: CYCLOSPORINE 0.05% OPH EMULSIO 0.4 ML DROPERETTE OU SCH (22:53)
--- NOTE | 2019-08-22 23:44 | EKG REPORT ---
SEVERITY:- ABNORMAL ECG - SINUS RHYTHM PROBABLE INFERIOR INFARCT, OLD : Confirmed by: Mary Eugene MD 22-Aug-2019 23:43:23
[2019-08-23 05:13] LABS: ABSOLUTE RETICS # 0.064 10^6/uL (0.028-0.122); HEMATOCRIT 25.7 % (36.0-47.0); HEMOGLOBIN 8.7 g/dL (12.0-15.5); MEAN CORPUSCULAR HEMOGLOBIN 30.4 pg (27.0-33.4); MEAN CORPUSCULAR HGB CONC 33.9 g/dL (32.0-36.0); MEAN CORPUSCULAR VOLUME 90 fl (80-97); PLATELET COUNT 282 10^3/uL (150-450); RED BLOOD COUNT 2.86 10^6/uL (3.72-5.28); RED CELL DISTRIBUTION WIDTH 14.8 % (11.5-14.0); RETICULOCYTE COUNT (AUTO) 2.22 % (0.66-2.85); WHITE BLOOD COUNT 3.9 10^3/uL (4.0-10.5)
[2019-08-23 05:35] LABS: IRON(TIBC) 21.4 ug/dL (37-170)
[2019-08-23 05:53] LABS: FREE T4 (FREE THYROXINE) 1.27 ng/dL (0.78-2.19)
[2019-08-23 06:07] LABS: THYROID STIMULATING HORMONE 2.65 uIU/mL (0.47-4.68)
[2019-08-23 06:49] LABS: FOLATE > 20.00 ng/mL (>2.76)
[2019-08-23] MEDS ORDERED: ASPIRIN 81 MG TABLET, ENT COATED PO SCH (10:00)
[2019-08-23] MEDS ORDERED: ENOXAPARIN SODIUM INJ 40 MG/0.4 ML DISP.SYRIN SUBCUT SCH (10:00)
[2019-08-23] MEDS ORDERED: AMLODIPINE BESYLATE 5 MG TABLET PO SCH (10:00)
[2019-08-23] MEDS: DOCUSATE SODIUM 100 MG CAPSULE PO SCH (10:21)
--- NOTE | 2019-08-23 11:39 | PDOC DISCHARGE SUMMARY ---
Impression - Admit/DC Date/PCP Admission Date/Primary Care Provider: 08/22/19 16:34 ETHAN MCMAHON MD Discharge Date: 08/23/19 - Discharge Diagnosis (1) Acute on chronic anemia Is this a current diagnosis for this admission?: Yes (2) Lower gastrointestinal bleeding Is this a current diagnosis for this admission?: Yes (3) Muscle weakness of extremity Is this a current diagnosis for this admission?: Yes (4) Elevated brain natriuretic peptide (BNP) level Is this a current diagnosis for this admission?: Yes (5) Iron deficiency Is this a current diagnosis for this admission?: Yes - Assessment Summary: Patient presented to the emergency department with complaints of weakness in her lower extremities. On evaluation in the ER, CBC revealed that hemoglobin had dropped to 8.5. Patient still having mild hematochezia and as such there was concern given recent hemoglobin of 10 after prior discharge from hospitalization. Of note, patient's hematochezia has improved significantly since 2 weeks ago when she had enterocolitis. Hemorrhoids were noted externally on rectal exam. Patient does state that the hematochezia is only very minimal at this point. Patient was admitted under observation to ensure no further drop in hemoglobin levels. Hemoglobin stayed steady and actually reads as 8.7 today. Patient's hematochezia is likely secondary to resolving mucosal irritation from her very recent enterocolitis and does not warrant any inpatient colonoscopy at this time. 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 Patient will benefit from a lot of physical therapy as her leg weakness is likely from chronic nonpitting edema and muscle weakness with deconditioning. Of note, blood work in the ER did show elevated BNP of about 1000 which was about the same level as on her recent ER evaluation. Chest x-ray showed mild interstitial edema. However, clinically patient denied any sort of respiratory symptoms whatsoever including dyspnea, chest pain, cough, orthopnea, and PND. Patient did receive 1 dose of IV Lasix on admission but decision was made not to further treat as clinically, there was no evidence of significant overt pulmonary edema or change from baseline status. TSH, B12 and folic acid levels were normal. Iron level was mildly depleted and as such patient was started on ferrous sulfate to be taken every other day to reduce likelihood of side effects. Patient's home health is been resumed and patient will continue to receive aggressive home physical therapy which she has not been able to receive sufficiently due to her frequent hospitalizations. - Additional Information Resuscitation Status: Do Not Intubate Discharge Diet: As Tolerated Discharge Activity: Activity As Tolerated Referrals: ETHAN MCMAHON MD [Primary Care Provider] - Follow up as needed Prescriptions: Ferrous Sulfate [Boogie-Time] 325 mg PO Q48H #30 tablet Home Medications: Amlodipine Besylate [Norvasc 5 mg Tablet] 5 mg PO Q12 08/11/19 Ascorbic Acid [Vitamin C 500 mg Tablet] 500 mg PO BID 08/11/19 Cyanocobalamin (Vitamin B-12) [Vitamin B-12] 1,000 mcg PO DAILY 08/11/19 Cyclosporine 0.05% Oph Emulsio [Restasis 0.05% Oph Emulsion Pf 0.4 ml] 1 drop OU BID 08/11/19 Docusate Sodium [Colace] 100 mg PO BID 08/11/19 Isosorbide Mononitrate [Isosorbide Mononitrate ER] 120 mg PO QPM 08/11/19 Magnesium 250 mg PO DAILY 08/11/19 [place]-3 Fatty Acids/Fish Oil [[place] 3 Fish Oil Softgel] 1 each PO BID 08/11/19 Pramipexole Di-HCl [Mirapex 0.25 mg Tablet] 0.25 mg PO QPM 08/11/19 Tramadol HCl [Ultram 50 mg Tablet] 50 mg PO Q12 08/11/19 Vit A/Vit C/Vit E/Zinc/Copper [Preservision Areds Softgel] 1 each PO DAILY 08/11/19 Aspirin [Ecotrin 81 mg EC Tablet] 81 mg PO DAILY 08/23/19 Cetirizine HCl [Zyrtec 10 mg Tablet] 10 mg PO DAILY 08/23/19 Cranberry Conc/C/Bacill Coag [AZO Cranberry Tablet] 1 each PO DAILY 08/23/19 Ferrous Sulfate [Boogie-Time] 325 mg PO Q48H #30 tablet 08/23/19 Ranolazine [Ranexa 500 mg Tab.sr] 500 mg PO DAILY 08/23/19 Ubidecarenone/Vit E Acet [Co Q-10 100 mg Softgel] 1 each PO DAILY 08/23/19 History of Present Illiness History of Present Illness: SUNITA BALLESTEROS is a 84 year old female with a history of diabetes, dyslipidemia, hypertension, coronary artery disease presenting complaining of weakness. Patient states that she has weakness in her arms and legs and her legs give out today. She is mostly concerned that she continues to have weakness in her legs limiting her ambulation and that was what prompted her visit today. In the emergency department, patient endorsed some hematochezia and hemoglobin showed 8.5. ER concerned about drop of hemoglobin from 10 on last discharge to 8.5 in the setting of endorsing hematochezia and requested hospitalist service for admission. Patient states that she sees some streaks of blood but states that it is a whole lot better than it was when she was hospitalized over 2 weeks ago for enterocolitis. Patient denies any shortness of breath or lightheadedness. Patient denies any dark tarry stools, hematemesis, hematuria or hemoptysis. Patient otherwise feels well besides weakness in the legs. Physical Exam Vital Signs: Temp Pulse Resp BP Pulse Ox 97.9 F 76 16 143/64 H 95 08/23/19 08:00 08/23/19 08:00 08/23/19 08:00 08/23/19 08:00 08/23/19 08:00 Intake & Output 08/22/19 08/23/19 08/24/19 06:59 06:59 06:59 Intake Total 370 Output Total 500 Balance -130 Weight 87.4 kg General appearance: PRESENT: no acute distress, cooperative Respiratory exam: PRESENT: clear to auscultation wojciech Cardiovascular exam: PRESENT: systolic murmur GI/Abdominal exam: PRESENT: normal bowel sounds Extremities exam: PRESENT: pedal edema Neurological exam: PRESENT: alert, awake, oriented to person, oriented to place, oriented to time, oriented to situation Results Laboratory Results: WBC 3.9 10^3/uL (4.0-10.5) L 08/23/19 04:13 RBC 2.86 10^6/uL (3.72-5.28) L 08/23/19 04:13 Hgb 8.7 g/dL (12.0-15.5) L 08/23/19 04:13 Hct 25.7 % (36.0-47.0) L 08/23/19 04:13 MCV 90 fl (80-97) 08/23/19 04:13 MCH 30.4 pg (27.0-33.4) 08/23/19 04:13 MCHC 33.9 g/dL (32.0-36.0) 08/23/19 04:13 RDW 14.8 % (11.5-14.0) H 08/23/19 04:13 Plt Count 282 10^3/uL (150-450) 08/23/19 04:13 Lymph % (Auto) 12.6 % (13-45) L 08/22/19 13:15 [place] % (Auto) 16.5 % (3-13) H 08/22/19 13:15 Eos % (Auto) 0.4 % (0-6) 08/22/19 13:15 Baso % (Auto) 0.2 % (0-2) 08/22/19 13:15 Reticulocyte # 0.064 10^6/uL (0.028-0.122) 08/23/19 04:13 Absolute Neuts (auto) 2.8 10^3/uL (1.7-8.2) 08/22/19 13:15 Absolute Lymphs (auto) 0.5 10^3/uL (0.5-4.7) 08/22/19 13:15 Absolute Monos (auto) 0.7 10^3/uL (0.1-1.4) 08/22/19 13:15 Absolute Eos (auto) 0.0 10^3/uL (0.0-0.6) 08/22/19 13:15 Absolute Basos (auto) 0.0 10^3/uL (0.0-0.2) 08/22/19 13:15 Seg Neutrophils % 70.3 % (42-78) 08/22/19 13:15 Retic Count (auto) 2.22 % (0.66-2.85) 08/23/19 04:13 Sodium 131.9 mmol/L (137-145) L 08/22/19 13:15 Potassium 4.3 mmol/L (3.6-5.0) 08/22/19 13:15 Chloride 97 mmol/L (98-107) L 08/22/19 13:15 Carbon Dioxide 28 mmol/L (22-30) 08/22/19 13:15 Anion Gap 7 (5-19) 08/22/19 13:15 BUN 15 mg/dL (7-20) 08/22/19 13:15 Creatinine 0.87 mg/dL (0.52-1.25) 08/22/19 13:15 Est GFR ( Amer) > 60 (>60) 08/22/19 13:15 Est GFR (MDRD) Non-Af > 60 (>60) 08/22/19 13:15 Glucose 95 mg/dL (75-110) 08/22/19 13:15 Calcium 8.2 mg/dL (8.4-10.2) L 08/22/19 13:15 Magnesium 1.9 mg/dL (1.6-2.3) 08/22/19 13:15 Iron 21.4 ug/dL (37-170) L 08/23/19 04:13 TIBC 191 ug/dL (250-450) L 08/23/19 04:13 % Saturation 11 % 08/23/19 04:13 Ferritin 78.60 ng/mL (11.1-264.0) 08/23/19 04:13 Total Bilirubin 0.3 mg/dL (0.2-1.3) 08/22/19 13:15 Direct Bilirubin 0.1 mg/dL (0.0-0.4) 08/22/19 13:15 Neonat Total Bilirubin Not Reportable 08/22/19 13:15 Neonat Direct Bilirubin Not Reportable 08/22/19 13:15 Neonat Indirect Bili Not Reportable 08/22/19 13:15 AST 14 U/L (14-36) 08/22/19 13:15 ALT 8 U/L (<35) 08/22/19 13:15 Alkaline Phosphatase 47 U/L (38-126) 08/22/19 13:15 Troponin I < 0.012 ng/mL 08/22/19 13:15 NT-Pro-B Natriuret Pep 1080 pg/mL (<450) H 08/22/19 13:15 Total Protein 5.1 g/dL (6.3-8.2) L 08/22/19 13:15 Albumin 2.6 g/dL (3.5-5.0) L 08/22/19 13:15 Vitamin B12 > 1000.0 pg/mL (239-931) H 08/23/19 04:13 Folate > 20.00 ng/mL (>2.76) 08/23/19 04:13 TSH 2.65 uIU/mL (0.47-4.68) 08/23/19 04:13 Free T4 1.27 ng/dL (0.78-2.19) 08/23/19 04:13 Urine Color YELLOW 08/22/19 13:20 Urine Appearance SLIGHTLY-CLOUDY 08/22/19 13:20 Urine pH 5.0 (5.0-9.0) 08/22/19 13:20 Ur Specific [place] 1.016 08/22/19 13:20 Urine Protein NEGATIVE mg/dL (NEGATIVE) 08/22/19 13:20 Urine Glucose (UA) NEGATIVE mg/dL (NEGATIVE) 08/22/19 13:20 Urine Ketones NEGATIVE mg/dL (NEGATIVE) 08/22/19 13:20 Urine Blood NEGATIVE (NEGATIVE) 08/22/19 13:20 Urine Nitrite NEGATIVE (NEGATIVE) 08/22/19 13:20 Urine Bilirubin NEGATIVE (NEGATIVE) 08/22/19 13:20 Urine Urobilinogen NEGATIVE mg/dL (<2.0) 08/22/19 13:20 Ur Leukocyte Esterase SMALL (NEGATIVE) H 08/22/19 13:20 Urine WBC (Auto) 3 /HPF 08/22/19 13:20 Urine RBC (Auto) 9 /HPF 08/22/19 13:20 Urine Bacteria (Auto) TRACE /HPF 08/22/19 13:20 Squamous Epi Cells Auto <1 /HPF 08/22/19 13:20 Calcium Oxalate Cr Auto FEW /HPF 08/22/19 13:20 Urine Mucus (Auto) RARE /LPF 08/22/19 13:20 Urine Yeast (Budding) PRESENT /HPF 08/22/19 13:20 Urine Ascorbic Acid 40 (NEGATIVE) H 08/22/19 13:20 POC Stool Occult Blood POSITIVE (NEGATIVE) 08/22/19 15:32 Blood Type O POSITIVE 08/22/19 13:15 Antibody Screen NEGATIVE 08/22/19 13:15 08/22/19 13:15 Troponin I < 0.012 NT-Pro-B Natriuret Pep 1080 H Impressions: Chest X-Ray 08/22/19 13:02 IMPRESSION: CARDIAC ENLARGEMENT. VASCULAR CONGESTION. Plan Time Spent: Less than 30 Minutes Stroke Is this a Stroke Patient?: No Acute Heart Failure - Is this a Heart Failure Patient?: No
[2019-08-23] MEDS: CYCLOSPORINE 0.05% OPH EMULSIO 0.4 ML DROPERETTE OU SCH (12:13)
[2019-08-23 12:45] VITALS: BP 118/60
== END 2019-08-23 14:30 | disposition home health service (06) ==
LOC: ER 10:08 → EH 16:34 → 5 18:55
PROVIDERS: ADMIT Internal Medicine; ATTEND Internal Medicine
DX: D50.8 Other iron deficiency anemias (principal); K92.1 Melena; M62.81 Muscle weakness (generalized); R79.89 Other specified abnormal findings of blood chemistry; K64.4 Residual hemorrhoidal skin tags; R60.0 Localized edema; I25.10 Atherosclerotic heart disease of native coronary artery without angina pectoris; I10 Essential (primary) hypertension; M19.90 Unspecified osteoarthritis, unspecified site; R26.2 Difficulty in walking, not elsewhere classified; I48.91 Unspecified atrial fibrillation; I25.2 Old myocardial infarction; Z87.19 Personal history of other diseases of the digestive system; Z79.899 Other long term (current) drug therapy; Z95.5 Presence of coronary angioplasty implant and graft; Z95.1 Presence of aortocoronary bypass graft; Z99.3 Dependence on wheelchair
CPT/HCPCS: 93005; 99285; 96374; 86900; 86901; 36415 ×2; 84439; 86850; 82607; 82728; 82746; 83540; 83550; 83735; 84443; 85025; 85027; 85045; 80053; 81001; 84484; 83880; 71046; 93010; 97116; 97163; 97535; 97167; G0378 ×3; A9270 ×7; J1940; J1650; J3490

== ENCOUNTER 2019-08-30 05:06 | Inpatient (IN) | payer MEDICARE, OTHER ==
[2019-08-30 06:09] LABS: ABSOLUTE EOSINOPHILS # (AUTO) 0.1 10^3/uL (0.0-0.6); ABSOLUTE LYMPHOCYTES (AUTO) 0.4 10^3/uL (0.5-4.7); ABSOLUTE MONOCYTES (AUTO) 0.6 10^3/uL (0.1-1.4); ABSOLUTE NEUT (AUTO) 5.2 10^3/uL (1.7-8.2); BASOPHILS % (AUTO) 0.3 % (0-2); HEMATOCRIT 26.9 % (36.0-47.0); LYMPHOCYTES % (AUTO) 6.9 % (13-45); MEAN CORPUSCULAR HGB CONC 33.5 g/dL (32.0-36.0); MEAN CORPUSCULAR VOLUME 89 fl (80-97); MONOCYTES % (AUTO) 9.1 % (3-13); PLATELET COUNT 255 10^3/uL (150-450); RED BLOOD COUNT 3.01 10^6/uL (3.72-5.28); RED CELL DISTRIBUTION WIDTH 14.8 % (11.5-14.0); SEGMENTED NEUTROPHILS % (AUTO) 82.7 % (42-78); TOTAL CELLS COUNTED % (AUTO) 100 %; WHITE BLOOD COUNT 6.3 10^3/uL (4.0-10.5)
[2019-08-30 06:24] LABS: ALBUMIN 2.8 g/dL (3.5-5.0); ALKALINE PHOSPHATASE 70 U/L (38-126); ANION GAP 8 (5-19); ASPARTATE AMINO TRANSFERASE 15 U/L (14-36); BILIRUBIN,DIRECT 0.2 mg/dL (0.0-0.4); BILIRUBIN,TOTAL 0.5 mg/dL (0.2-1.3); BLOOD UREA NITROGEN 20 mg/dL (7-20); CALCIUM 8.3 mg/dL (8.4-10.2); CARBON DIOXIDE 30 mmol/L (22-30); CHLORIDE 94 mmol/L (98-107); GLUCOSE 98 mg/dL (75-110); POTASSIUM 3.6 mmol/L (3.6-5.0); TOTAL PROTEIN 5.6 g/dL (6.3-8.2)
--- NOTE | 2019-08-30 06:44 | EKG REPORT ---
SEVERITY:- ABNORMAL ECG - SINUS RHYTHM INFERIOR INFARCT, AGE INDETERMINATE : Confirmed by: Brennen Hancock MD 30-Aug-2019 06:43:17
[2019-08-30] MEDS ORDERED: POTASSIUM CHLORIDE 20 MEQ PACKET PO ONE (06:59)
[2019-08-30 07:12] LABS: NT PRO BNP 1660 pg/mL (<450)
[2019-08-30 07:14] LABS: APPEARANCE,URINE CLEAR; BILIRUBIN,URINE NEGATIVE (NEGATIVE); COLOR,URINE YELLOW; GLUCOSE, URINE NEGATIVE (NEGATIVE); KETONES,URINE NEGATIVE (NEGATIVE); LEUKOCYTE ESTERASE,URINE NEGATIVE (NEGATIVE); NITRITE,URINE NEGATIVE (NEGATIVE); PROTEIN,URINE NEGATIVE (NEGATIVE); URIC ACID CRYSTALS,URINE RARE /HPF; URINE SPECIFIC GRAVITY 1.017; UROBILINOGEN,URINE NEGATIVE mg/dL (<2.0)
--- NOTE | 2019-08-30 07:14 | ER Document Report ---
ED General - General TRAVEL OUTSIDE OF THE [place] IN LAST 30 DAYS: No <ALEX ALBRIGHT - Last Filed: 08/30/19 08:37> - General TRAVEL OUTSIDE OF THE [place] IN LAST 30 DAYS: No <JOI BARNHART - Last Filed: 08/30/19 20:32> - General Chief Complaint: General Weakness Stated Complaint: WEAKNESS Time Seen by Provider: 08/30/19 06:26 Notes: 84-year-old with significant history of CHF presents with generalized weakness, nausea/vomiting/diarrhea, bilateral lower leg edema. Patient states generalized weakness, nausea/vomiting/diarrhea is ongoing for 1 week. Patient states she has been having bilateral lower leg edema for 1 month. Upon arrival to ER patient was found to be SPO2 90% and was placed on 2 L of O2 with improvement in pulse ox. Patient denies any chest pain, dyspnea, abdominal pain. Patient states she is only had one episode of vomiting in the last 24 hours and one episode of diarrhea. Patient states her stools have improved over the past week started off loose watery and have become less watery. (ALEX ALBRIGHT) - Related Data Allergies/Adverse Reactions: levofloxacin [From Levaquin] Allergy (Severe, Verified 08/11/19 14:18) Diarrhea Past Medical History - Social History Smoking Status: Never Smoker Family History: Hypertension, Malignancy Patient has suicidal ideation: No Patient has homicidal ideation: No - Past Medical History Cardiac Medical History: Reports: Hx Coronary Artery Disease, Hx Heart Attack, Hx Hypercholesterolemia, Hx Hypertension Denies: Hx Atrial Fibrillation, Hx Congestive Heart Failure, Hx Peripheral Vascular Disease, Hx Heart Murmur Pulmonary Medical History: Reports: Hx Pneumonia - 2011 Denies: Hx Asthma, Hx Bronchitis, Hx COPD, Hx Tuberculosis Neurological Medical History: Reports: Hx Cerebrovascular Accident. Denies: Hx Seizures Endocrine Medical History: Denies: Hx Diabetes Mellitus Type 1, Hx Diabetes Mellitus Type 2, Hx Hyperthyroidism, Hx Hypothyroidism Renal/ Medical History: Denies: Hx Peritoneal Dialysis GI Medical History: Reports: Hx Gastroesophageal Reflux Disease. Denies: Hx Cirrhosis, Hx Hepatitis Musculoskeletal Medical History: Reports Hx Arthritis, Denies Hx Gout Skin Medical History: Denies Hx Eczema, Denies Hx Psoriasis Psychiatric Medical History: Denies: Hx Depression Infectious Medical History: Denies: Hx Hepatitis Past Surgical History: Reports: Hx Cardiac Catheterization, Hx Cardiac Surgery - "bypass", Hx Coronary Artery Bypass Graft, Hx Coronary Stent, Hx Hysterectomy, Hx Tubal Ligation. Denies: Hx Appendectomy, Hx Bowel Surgery, Hx Section, Hx Cholecystectomy, Hx Gastric Bypass Surgery, Hx Herniorrhaphy, Hx Mastectomy, Hx Pacemaker, Hx Tonsillectomy - Immunizations Hx Diphtheria, Pertussis, Tetanus Vaccination: No Hx Pneumococcal Vaccination: 08/15/19 <ALEX ALBRIGHT - Last Filed: 08/30/19 08:37> Physical Exam - General General appearance: Appears well, Alert In distress: None - HEENT Head: Normocephalic, Atraumatic Eyes: Normal Nasal: Normal Mouth/Lips: Normal Pharynx: Normal Neck: Normal, Supple. No: Lymphadenopathy - Respiratory Respiratory status: No respiratory distress Chest status: Nontender Breath sounds: Rales. No: Nonproductive cough Chest palpation: Normal - Cardiovascular Rhythm: Regular Heart sounds: S1 appreciated, S2 appreciated - Abdominal Inspection: Obese Distension: No distension Bowel sounds: Normal Tenderness: Nontender - Back Back: Normal, Nontender - Extremities General upper extremity: Normal inspection, Normal strength General lower extremity: Edema - bilat LE - Neurological Neuro grossly intact: Yes Cognition: Normal [place] Coma Scale Eye Opening: Spontaneous [place] Coma Scale Verbal: Oriented Mahesh Coma Scale Motor: Obeys Commands [place] Coma Scale Total: 15 - Psychological Associated symptoms: Normal affect, Normal mood - Skin Skin Temperature: Warm Skin Moisture: Dry Skin Color: Normal <JOI BARNHART - Last Filed: 08/30/19 20:32> - Vital signs Vitals: Temp Pulse Resp BP Pulse Ox 98.8 F 85 19 124/82 90 L 08/30/19 05:06 08/30/19 05:06 08/30/19 05:06 08/30/19 05:06 08/30/19 05:06 Course - Laboratory Result Diagrams: 08/30/19 05:33 08/30/19 05:33 <ALEX ALBRIGHT - Last Filed: 08/30/19 08:37> - Laboratory Result Diagrams: 08/30/19 05:33 08/30/19 05:33 - Diagnostic Test Radiology reviewed: Reports reviewed <JOI BARNHART - Last Filed: 08/30/19 20:32> - Re-evaluation Re-evalutation: 08/30/19 84-year-old female presents with generalized weakness, nausea/vomiting/diarrhea, bilateral lower leg edema. Patient was found to be 90% on room air upon arrival to ER and was placed on 2 L of O2. Patient states she is not on O2 ever at home. Patient has mild rales noted in lower lung lobes. Patient has 2+ nonpitting edema bilateral lower extremities. Patient states nausea has improved with Zofran that was given to her. Patient states she is only had one episode of vomiting and one episode of diarrhea in the last 24 hours. Patient states her vomiting and diarrhea has been improving since the start of this week. Patient is currently taking Macrobid for a urinary tract infection. Patient denies any blood in stool or emesis. Patient's hemoglobin is at baseline. Patient is afebrile. Nontoxic in appearance. Work-up initiated. EKG shows normal sinus rhythm at 77. Chest x-ray was ordered. BNP added on. 08/30/19 07:23 BNP 1660. (ALEX ALBRIGHT) 08/30/19 08:35 Report and handoff received at bedside, oxygen sat at 97%. O2 turned off at this time. Patient denies any complaints, no chest pain, no shortness of breath, no abdominal tenderness nausea or vomiting. 08/30/19 09:15 Patient oxygen saturation dropped to 88%, O2 reapplied and oxygen saturation returned to 100% 08/30/19 11:27 Patient ambulated at bedside with portable pulse ox monitor, oxygen saturation dropped to 87-88 and heart rate increased to 105. Patient denies any dyspnea. Patient does continue with rales to bilateral lower lobe. Patient denies any chest discomfort. 08/30/19 12:[address] Rogers regarding patient presentation, recommends consultation with hospitalist for admission. Spoke with Dr. Vazquez who agrees to accept patient for telemetry observation admission at this time. 08/30/19 20:31 (JOI BARNHART) - Vital Signs Vital signs: Temp Pulse Resp BP Pulse Ox 98.7 F 76 17 132/52 H 100 08/30/19 15:26 08/30/19 19:00 08/30/19 15:26 08/30/19 15:26 08/30/19 15:26 - Laboratory Laboratory results interpreted by me: 08/30/19 08/30/19 08/30/19 05:33 05:33 05:33 RBC 3.01 L Hgb 9.0 L Hct 26.9 L RDW 14.8 H Lymph % (Auto) 6.9 L Absolute Lymphs (auto) 0.4 L Seg Neutrophils % 82.7 H ABG pH ABG HCO3 ABG Total CO2 Sodium 131.7 L Chloride 94 L Est GFR (MDRD) Non-Af 59 L Calcium 8.3 L NT-Pro-B Natriuret Pep 1660 H Total Protein 5.6 L Albumin 2.8 L Urine Ascorbic Acid 08/30/19 08/30/19 06:53 08:10 RBC Hgb Hct RDW Lymph % (Auto) Absolute Lymphs (auto) Seg Neutrophils % ABG pH 7.48 H ABG HCO3 29.9 H ABG Total CO2 31.2 H Sodium Chloride Est GFR (MDRD) Non-Af Calcium NT-Pro-B Natriuret Pep Total Protein Albumin Urine Ascorbic Acid 40 H Discharge <ALEX ALBRIGHT - Last Filed: 08/30/19 08:37> - Discharge Admitting Provider: George (Hospitalist) Unit Admitted: Telemetry <JOI BARNHART - Last Filed: 08/30/19 20:32> - Discharge Clinical Impression: Hypoxia, Weakness CHF (congestive heart failure) Qualifiers: Heart failure type: unspecified Heart failure chronicity: unspecified Qualified Code(s): I50.9 - Heart failure, unspecified Condition: Fair Disposition: ADMITTED OBSERVATION
[2019-08-30 07:18] LABS: TROPONIN I < 0.012 ng/mL
[2019-08-30] MEDS ORDERED: FUROSEMIDE INJ/PF 40 MG/4 ML SDV IV ONE (07:54)
[2019-08-30] MEDS: FUROSEMIDE INJ/PF 20 MG/2 ML SDV IV ONE ×2 (08:00→08:04)
[2019-08-30 08:23] LABS: ARTERIAL BLOOD BASE EXCESS 5.8 mmol/L; ARTERIAL BLOOD H2CO3 1.25 mmol/L (1.05-1.35); ARTERIAL BLOOD HCO3 29.9 mmol/L (20-24); ARTERIAL BLOOD O2 SATURATION 97.8 % (94-98); ARTERIAL BLOOD PCO2 41.6 mmHg (35-45); ARTERIAL BLOOD PH 7.48 (7.35-7.45); ARTERIAL BLOOD PO2 98.9 mmHg (80-100); ARTERIAL BLOOD TOTAL CO2 31.2 mmol/L (21-25)
[2019-08-30 08:25] LABS: ARTERIAL BLOOD FIO2 28%
--- NOTE | 2019-08-30 08:41 | RADIOLOGY REPORT (SQ) ---
EXAM DESCRIPTION: CHEST 2 VIEWS COMPLETED DATE/TIME: 08/30/2019 7:24 am REASON FOR STUDY: n/v gen weakness COMPARISON: 08/22/2019. EXAM PARAMETERS: NUMBER OF VIEWS: two views TECHNIQUE: Digital Frontal and Lateral radiographic views of the chest acquired. RADIATION DOSE: NA LIMITATIONS: none FINDINGS: LUNGS AND PLEURA: Mild interstitial prominence. No infiltrates, masses or pneumothorax. N o pleural effusion. MEDIASTINUM AND HILAR STRUCTURES: No masses or contour abnormalities. Calcified paratracheal lymph n ode. HEART AND VASCULAR STRUCTURES: Stable mild cardiomegaly. No evidence for failure. BONES: No acute findings. HARDWARE: Sternotomy wires and coronary bypass markers. OTHER: No other significant finding. IMPRESSION: STABLE MILD CARDIOMEGALY. CHRONIC INTERSTITIAL CHANGES. NO APPARENT ACUTE FINDINGS. TECHNICAL DOCUMENTATION: JOB ID: [id number] [employer]- All Rights Reserved Reading location - IP/workstation name: [email or web address]
[2019-08-30] MEDS ORDERED: IPRATROPIUM/ALBUTEROL 0.5-2.5 MG/3 ML AMPUL NEB PRN (13:29)
[2019-08-30] MEDS ORDERED: PROMETHAZINE HCL INJ 25 MG/1 ML VIAL IV PRN (13:29)
[2019-08-30] MEDS ORDERED: ACETAMINOPHEN 325 MG TABLET PO PRN (13:29)
[2019-08-30] MEDS ORDERED: TEMAZEPAM 7.5 MG CAPSULE PO PRN (13:29)
[2019-08-30] MEDS ORDERED: MAG HYDROX/AL HYDROX/SIMETH SUSP 30 ML UDCUP PO PRN (13:29)
[2019-08-30] MEDS ORDERED: LISINOPRIL 5 MG TABLET PO SCH (13:45)
[2019-08-30] MEDS ORDERED: FUROSEMIDE INJ/PF 20 MG/2 ML SDV IV SCH (13:45)
--- NOTE | 2019-08-30 14:00 | PDOC H&P ---
History of Present Illness Admission Date/PCP: 08/30/19 12:33 ETHAN MCMAHON MD History of Present Illness: SUNITA BALLESTEROS is a 84 year old female past medical history of CAD status post PCI x6 stents and CABG, chronic A. fib, hyperlipidemia, hypertension, chronic anemia due to GI bleed, presenting to ED with worsening bilateral lower extremity edema, generalized weakness, nausea and one episode of vomiting yesterday. Patient was recent hospital for acute GI bleed due to blood thinners for her A. fib RVR. Saying that she has not had any more melena or hematochezia and having normal bowel movements. She is also endorsing dyspnea on exertion, generalized weakness and worsening lower extremity edema below the knees. She is adherent with her medications but mentions that she drinks a lot of water as she was told her water was good for her. Endorses nausea and one episode of nonbloody vomiting yesterday however denies any dyspnea at rest, chest pain, fever, cough, lightheadedness, headache, focal weakness or numbness, abdominal pain, diarrhea, constipation or any urinary symptoms. Past Medical History Cardiac Medical History: Reports: Coronary Artery Disease, Myocardial Infarction, Hyperlipidema, Hypertension Denies: Atrial Fibrillation, Congestive Heart Failure, Peripheral Vascular Disease, Heart Murmur Pulmonary Medical History: Reports: Pneumonia - 2012 Denies: Asthma, Bronchitis, Chronic Obstructive Pulmonary Disease (COPD), Tuberculosis Neurological Medical History: Denies: Seizures Endocrine Medical History: Denies: Diabetes Mellitus Type 1, Diabetes Mellitus Type 2, Hyperthyroidism, Hypothyroidism GI Medical History: Reports: Gastroesophageal Reflux Disease Denies: Cirrhosis, Hepatitis Musculoskeltal Medical History: Reports: Arthritis Denies: Gout Skin Medical History: Denies: Eczema, Psoriasis Psychiatric Medical History: Denies: Depression Hematology: Denies: Anemia, Bleeding Tendencies Past Surgical History Past Surgical History: Reports: Cardiac Catheterization, Coronary Artery Bypass Graft, Coronary Stent, Hysterectomy, Tubal Ligation Denies: Appendectomy, Section, Cholecystectomy, Gastric Bypass Surgery, Herniorrhaphy, Mastectomy, Pacemaker, Tonsillectomy Social History Smoking Status: Never Smoker Frequency of Alcohol Use: None Hx Recreational Drug Use: No Drugs: None Hx Prescription Drug Abuse: No Family History Family History: Hypertension, Malignancy Parental Family History Reviewed: Yes Children Family History Reviewed: Yes Sibling(s) Family History Reviewed.: Yes Medication/Allergy Home Medications: Ascorbic Acid [Vitamin C 500 mg Tablet] 500 mg PO BID 08/11/19 Cyanocobalamin (Vitamin B-12) [Vitamin B-12] 1,000 mcg PO DAILY 08/11/19 Cyclosporine 0.05% Oph Emulsio [Restasis 0.05% Oph Emulsion Pf 0.4 ml] 1 drop OU BID 08/11/19 Docusate Sodium [Colace] 100 mg PO BID 08/11/19 Isosorbide Mononitrate [Isosorbide Mononitrate ER] 120 mg PO QPM 08/11/19 Magnesium 250 mg PO DAILY 08/11/19 [place]-3 Fatty Acids/Fish Oil [[place] 3 Fish Oil Softgel] 1 each PO BID 08/11/19 Pramipexole Di-HCl [Mirapex 0.25 mg Tablet] 0.25 mg PO QPM 08/11/19 Tramadol HCl [Ultram 50 mg Tablet] 50 mg PO Q12 08/11/19 Vit A/Vit C/Vit E/Zinc/Copper [Preservision Areds Softgel] 1 each PO DAILY 08/11/19 Aspirin [Ecotrin 81 mg EC Tablet] 81 mg PO DAILY 08/23/19 Cetirizine HCl [Zyrtec 10 mg Tablet] 10 mg PO DAILY 08/23/19 Cranberry Conc/C/Bacill Coag [AZO Cranberry Tablet] 1 each PO DAILY 08/23/19 Ferrous Sulfate [Boogie-Time] 325 mg PO Q48H #30 tablet 08/23/19 Ranolazine [Ranexa 500 mg Tab.sr] 500 mg PO DAILY 08/23/19 Ubidecarenone/Vit E Acet [Co Q-10 100 mg Softgel] 1 each PO DAILY 08/23/19 Allergies/Adverse Reactions: levofloxacin [From Levaquin] Allergy (Severe, Verified 08/11/19 14:18) Diarrhea Review of Systems Review of Systems: as per hpi Physical Exam Vital Signs: Temp Pulse Resp BP Pulse Ox 98.8 F 85 13 134/58 H 98 08/30/19 05:27 08/30/19 05:06 08/30/19 11:01 08/30/19 11:01 08/30/19 11:01 Intake & Output 08/29/19 08/30/19 08/31/19 06:59 06:59 06:59 Weight 84.368 kg General appearance: PRESENT: no acute distress, obese, well-developed, well- nourished Head exam: PRESENT: atraumatic, normocephalic Respiratory exam: PRESENT: crackles - Bibasilar crackles. ABSENT: rales, rhonchi, wheezes GI/Abdominal exam: PRESENT: normal bowel sounds, soft. ABSENT: distended, guarding, mass, organolmegaly, rebound, tenderness Extremities exam: PRESENT: +2 edema Neurological exam: PRESENT: alert, awake, oriented to person, oriented to place, oriented to time, oriented to situation, CN II-XII grossly intact. ABSENT: motor sensory deficit Results Laboratory Results: 08/30/19 05:33 08/30/19 05:33 08/30/19 08/30/19 08/30/19 05:33 05:33 05:33 WBC 6.3 RBC 3.01 L Hgb 9.0 L Hct 26.9 L MCV 89 MCH 30.0 MCHC 33.5 RDW 14.8 H Plt Count 255 Seg Neutrophils % 82.7 H Carbonic Acid HCO3/H2CO3 Ratio ABG pH ABG pCO2 ABG pO2 ABG HCO3 ABG O2 Saturation ABG Base Excess FiO2 Sodium 131.7 L Potassium 3.6 Chloride 94 L Carbon Dioxide 30 Anion Gap 8 BUN 20 Creatinine 0.91 Est GFR ( Amer) > 60 Glucose 98 Calcium 8.3 L Magnesium 2.1 Total Bilirubin 0.5 AST 15 Alkaline Phosphatase 70 Total Protein 5.6 L Albumin 2.8 L Urine Color Urine Appearance Urine pH Ur Specific Allison Urine Protein Urine Glucose (UA) Urine Ketones Urine Blood Urine Nitrite Ur Leukocyte Esterase Urine WBC (Auto) Urine RBC (Auto) 08/30/19 08/30/19 06:53 08:10 WBC RBC Hgb Hct MCV MCH MCHC RDW Plt Count Seg Neutrophils % Carbonic Acid 1.25 HCO3/H2CO3 Ratio 23:1 ABG pH 7.48 H ABG pCO2 41.6 ABG pO2 98.9 ABG HCO3 29.9 H ABG O2 Saturation 97.8 ABG Base Excess 5.8 FiO2 28% Sodium Potassium Chloride Carbon Dioxide Anion Gap BUN Creatinine Est GFR ( Amer) Glucose Calcium Magnesium Total Bilirubin AST Alkaline Phosphatase Total Protein Albumin Urine Color YELLOW Urine Appearance CLEAR Urine pH 6.0 Ur Specific Allison 1.017 Urine Protein NEGATIVE Urine Glucose (UA) NEGATIVE Urine Ketones NEGATIVE Urine Blood NEGATIVE Urine Nitrite NEGATIVE Ur Leukocyte Esterase NEGATIVE Urine WBC (Auto) 1 Urine RBC (Auto) 0 08/30/19 08/30/19 05:33 08:50 Troponin I < 0.012 < 0.012 NT-Pro-B Natriuret Pep 1660 H Impressions: Chest X-Ray 08/30/19 06:33 IMPRESSION: STABLE MILD CARDIOMEGALY. CHRONIC INTERSTITIAL CHANGES. NO APPARENT ACUTE FINDINGS. Assessment and Plan - Diagnosis (1) Acute systolic heart failure Is this a current diagnosis for this admission?: Yes Plan: Acute systolic heart failure. Elevated BNP. No JVD. Bilateral lower extremity edema below the knee. Crackles on physical examination. CTA is negative for any PE. As per Dr. Alvarado she had a normal echo in March 2019. This mostly due to excessive water intake. Denies any history of previous CHF. History of CAD status post CABG and 6 stents. Denies any anginal symptoms. EKG no acute changes. Troponins negative x2. Admit to telemetry, strict in and out, IV diuretics, daily weights, cardiac diet, LISA, beta-blockers. Low-dose beta-blockers to be uptitrated as tolerated. Low-dose LISA to be uptitrated as tolerated guided by renal function and volume status. IV diuretics to be transitioned to p.o. diuretics as tolerated guided by volume status and renal function. Consult cardiology. (2) Hypertension Is this a current diagnosis for this admission?: Yes Plan: Volume overload. Slightly hypertensive on admission. Low-dose beta-blockers to be uptitrated as tolerated. Low-dose LISA to be uptitrated as tolerated guided by renal function and volume status. IV diuretics to be transitioned to p.o. diuretics as tolerated guided by volume status and renal function. DC calcium channel blockers. (3) Weakness Is this a current diagnosis for this admission?: Yes Plan: Most likely with #1 complicated by underlying anemia. Denies any focal neurological symptoms. We will consult PT/OT. Evaluate for rehab. (4) CAD (coronary artery disease) Qualifiers: Coronary Disease-Associated Artery/Lesion type: bypass graft, autologous artery Is this a current diagnosis for this admission?: Yes Plan: Denies any anginal symptoms. Troponins negative. EKG no acute changes. Antiplatelets, statins, beta-blockers, LISA. Outpatient PCP follow-up. (5) Chronic atrial fibrillation Is this a current diagnosis for this admission?: Yes Plan: Not anticoagulated due to history of GI bleed on Coumadin and NOACs. Rate controlled. Low-dose beta-blockers to be uptitrated as tolerated. Could switch to Cardizem if not controlled on beta-blockers. PRN IV metoprolol. (6) Anemia Qualifiers: Anemia type: iron deficiency Is this a current diagnosis for this admission?: Yes Plan: History of GI bleed complicated by chronic anticoagulation for underlying A. fib RVR. Currently off of anticoagulation. Hemoglobin unchanged from previous admission. Denies any melena, hematochezia. Continue supplemental ferrous sulfate. Monitor H&H.
--- NOTE | 2019-08-30 15:23 | RADIOLOGY REPORT (SQ) ---
EXAM DESCRIPTION: CTA CHEST COMPLETED DATE/TIME: 08/30/2019 2:58 pm REASON FOR STUDY: sob, hypoxia, hx of afib J15.0 PNEUMONIA DUE TO KLEBSIELLA PNEUMONIAE E03.9 HYPO THYROIDISM, UNSPECIFIED COMPARISON: None. TECHNIQUE: CT scan of the chest performed using helical scanning technique with dynamic intravenous contrast injection. Images reviewed with lung, soft tissue and bone windows. Reconstructed coronal and sagittal MPR images reviewed. Additional 3 dimensional post-processing performed to develop Maximal Intensity Projection images (LA P). All images stored on PACS. All CT scanners at this facility use dose modulation, iterative reconstruction, and/or weight based d osing when appropriate to reduce radiation dose to as low as reasonably achievable (ALARA). [facility]: Dose Right [facility]: CareDose [facility]: Dose Right [facility]: Teradose 4D [facility]: [employer] CONTRAST TYPE AND DOSE: contrast/concentration: Isovue 350.00 mg/ml; Total Contrast Delivered: 62.0 ml; Total Saline Delivered: 51.7 ml Contrast bolus adequate for pulmonary arteries and aorta. RENAL FUNCTION: BUN 20 creatinine 0.91. RADIATION DOSE: CT Rad equipment meets quality standard of care and radiation dose reduction techniq ues were employed. CTDIvol: 9.9 - 14.5 mGy. DLP: 507 mGy-cm. . LIMITATIONS: None. FINDINGS: LUNGS AND PLEURA: Chronic interstitial changes. A few calcified granulomas. No masses, i nfiltrates, or pneumothorax. No pleural effusions or pleural calcifications. AORTA AND GREAT VESSELS: No aneurysm. No dissection. HEART: No pericardial effusion. No significant coronary artery calcifications. PULMONARY ARTERIES: No emboli visualized in the main pulmonary arteries or the segmental branches. HILAR AND MEDIASTINAL STRUCTURES: No identified masses or abnormal nodes. HARDWARE: Sternotomy wires and coronary bypass markers. UPPER ABDOMEN: Gallstone. Multiple calcified granulomas in the spleen. Limited exam. THYROID AND OTHER SOFT TISSUES: No masses. No adenopathy. BONES: No acute or significant finding. 3D MIPS: Confirm above findings. OTHER: No other significant finding. IMPRESSION: 1. NORMAL CTA OF THE CHEST. NO PULMONARY EMBOLI. 2. MILD CHRONIC SCARRING. PREVIOUS GRANULOMATOUS DISEASE. NO ACUTE FINDINGS. COMMENT: Quality ID # [id number]: Final reports with documentation of one or more dose reduction techniques (e.g., Automated exposure control, adjustment of the mA and/or kV according to patient size, use of iterative reconstruction technique) TECHNICAL DOCUMENTATION: JOB ID: [id number] [employer]- All Rights Reserved Reading location - IP/workstation name: [email or web address]
--- NOTE | 2019-08-30 15:30 | PDOC CONSULTATION ---
Consultation-Blank Consultation: CARDIOLOGY CONSULTATION by Dr. Mary Eugene on 08/30/2019. Patient seen at 4 PM. 60 minutes spent on this patient with more than 50% time spent in direct patient care. Reason for consultation: Congestive heart failure is the admitting diagnosis for patient's symptoms of shortness of breath exertional desaturation of her oxygen and leg edema. CONSULT REQUESTING PHYSICIAN: Dr. Yun, [facility]. HISTORY OF PRESENT ILLNESS: Patient is a poor historian. Patient is a 84-year- old female with known history of coronary artery disease, prior history of remote VT, with no recent anginal symptoms, and remote history of coronary artery bypass graft surgery, and history of multiple stent placements. Admitted with leg swelling and shortness of breath with exertion. She also has been having orthopnea. She denies any cough or sputum production. She states that she has no chest pain. She has noticed increased swelling of her legs but no PND. Of note the patient states that she has been drinking a lot of fluids/water since she was told it was good for her health. The patient denies any palpitations or syncope. In the emergency room the patient was found to have an oxygen saturation of 88% when ambulated. Hence patient is admitted for further management of the patient's condition. The patient denies any syncope. She denies any history of asthma or COPD. There is no history of sleep apnea. Past Medical History Cardiac Medical History: Reports: Coronary Artery Disease, Myocardial Infarction, Hyperlipidema, Hypertension Denies: Atrial Fibrillation, Congestive Heart Failure, Peripheral Vascular Disease, Heart Murmur Pulmonary Medical History: Reports: Pneumonia - 2011 Denies: Asthma, Bronchitis, Chronic Obstructive Pulmonary Disease (COPD), Tuberculosis Neurological Medical History: Denies: Seizures Endocrine Medical History: Denies: Diabetes Mellitus Type 1, Diabetes Mellitus Type 2, Hyperthyroidism, Hypothyroidism GI Medical History: Reports: Gastroesophageal Reflux Disease Denies: Cirrhosis, Hepatitis Musculoskeltal Medical History: Reports: Arthritis Denies: Gout Skin Medical History: Denies: Eczema, Psoriasis Psychiatric Medical History: Denies: Depression Hematology: Denies: Anemia, Bleeding Tendencies Past Surgical History Past Surgical History: Reports: Cardiac Catheterization, Coronary Artery Bypass Graft, Coronary Stent, Hysterectomy, Tubal Ligation Denies: Appendectomy, Section, Cholecystectomy, Gastric Bypass Surgery, Herniorrhaphy, Mastectomy, Pacemaker, Tonsillectomy Social History Smoking Status: Never Smoker Frequency of Alcohol Use: None Hx Recreational Drug Use: No Drugs: None Hx Prescription Drug Abuse: No Family History Family History: Hypertension, Malignancy Parental Family History Reviewed: Yes Children Family History Reviewed: Yes Sibling(s) Family History Reviewed.: Yes Medication/Allergy Home Medications: Ascorbic Acid [Vitamin C 500 mg Tablet] 500 mg PO BID 08/11/19 Cyanocobalamin (Vitamin B-12) [Vitamin B-12] 1,000 mcg PO DAILY 08/11/19 Cyclosporine 0.05% Oph Emulsio [Restasis 0.05% Oph Emulsion Pf 0.4 ml] 1 drop OU BID 08/11/19 Docusate Sodium [Colace] 100 mg PO BID 08/11/19 Isosorbide Mononitrate [Isosorbide Mononitrate ER] 120 mg PO QPM 08/11/19 Magnesium 250 mg PO DAILY 08/11/19 [place]-3 Fatty Acids/Fish Oil [[place] 3 Fish Oil Softgel] 1 each PO BID 08/11/19 Pramipexole Di-HCl [Mirapex 0.25 mg Tablet] 0.25 mg PO QPM 08/11/19 Tramadol HCl [Ultram 50 mg Tablet] 50 mg PO Q12 08/11/19 Vit A/Vit C/Vit E/Zinc/Copper [Preservision Areds Softgel] 1 each PO DAILY 08/11/19 Aspirin [Ecotrin 81 mg EC Tablet] 81 mg PO DAILY 08/23/19 Cetirizine HCl [Zyrtec 10 mg Tablet] 10 mg PO DAILY 08/23/19 Cranberry Conc/C/Bacill Coag [AZO Cranberry Tablet] 1 each PO DAILY 08/23/19 Ferrous Sulfate [Boogie-Time] 325 mg PO Q48H #30 tablet 08/23/19 Ranolazine [Ranexa 500 mg Tab.sr] 500 mg PO DAILY 08/23/19 Ubidecarenone/Vit E Acet [Co Q-10 100 mg Softgel] 1 each PO DAILY 08/23/19 Allergies/Adverse Reactions: levofloxacin [From Levaquin] Allergy (Severe, Verified 08/11/19 14:18) causes diarrhea Current Medications Generic Name Dose Route Start Last Admin Trade Name Freq PRN Reason Stop Dose Admin Acetaminophen 325 mg 12/16/19 13:29 Tylenol 325 Mg Tablet PO 09/29/19 13:28 Q4HP PRN FEVER >101 Al Hydrox/Mg Hydrox/Simethicone 15 ml 08/30/19 13:29 Maalox Plus Susp 30 Udcup PO 09/29/19 13:28 Q6HP PRN HEARTBURN Albuterol/Ipratropium 3 ml 08/30/19 13:29 Duoneb 3 Ml Ampul NEB 09/29/19 13:28 RTQ6HP PRN SHORTNESS OF BREATH Ascorbic Acid 500 mg 08/30/19 18:00 08/30/19 17:19 Vitamin C 500 Mg Tablet PO 09/29/19 17:59 500 mg BID BOUCHRA Administration Aspirin 81 mg 08/31/19 10:00 Ecotrin 81 Mg Ec Tablet PO 09/30/19 09:59 DAILY BOUCHRA Cyclosporine 1 drop 08/31/19 10:00 Restasis 0.05% Oph Emulsion Pf 0.4 Ml OU 09/30/19 09:59 BID BOUCHRA Docusate Sodium 100 mg 08/30/19 18:00 08/30/19 17:19 Colace 100 Mg Capsule PO 09/29/19 17:59 100 mg BID BOUCHRA Administration Enoxaparin Sodium 40 mg 08/30/19 14:30 08/30/19 16:07 Lovenox Inj 40 Mg/0.4 Ml Disp.Syrin SUBCUT 09/29/19 14:29 Not Given DAILY [facility] Famotidine 20 mg 08/30/19 22:00 08/30/19 22:02 Pepcid 20 Mg Tablet PO 09/29/19 21:59 20 mg Q12 BOUCHRA Administration Ferrous Sulfate 325 mg 08/30/19 16:00 08/30/19 17:19 Feosol 325 Mg Tablet PO 09/29/19 15:59 325 mg Q48H BOUCHRA Administration Isosorbide Mononitrate 120 mg 08/30/19 18:00 08/30/19 17:19 Imdur 60 Mg Tablet.Er PO 09/29/19 17:59 120 mg QPM BOUCHRA Administration Lisinopril 2.5 mg 08/30/19 13:45 08/30/19 16:08 Prinivil 5 Mg Tablet PO 09/29/19 13:44 Not Given DAILY BOUCHRA Magnesium Oxide 400 mg 08/31/19 10:00 Mag-Ox 400 Mg Tablet PO 09/30/19 09:59 DAILY BOUCHRA Metoprolol Tartrate 12.5 mg 08/30/19 13:45 08/30/19 22:02 Lopressor 25 Mg Tablet PO 09/29/19 13:44 12.5 mg Q12 BOUCHRA Administration Patient Own Medication 1 each 08/31/19 10:00 Ubidecarenone/Vit E Acet [Co Q-10 100 Mg Softgel] PO 09/30/19 09:59 DAILY BOUCHRA Pramipexole Dihydrochloride 0.25 mg 08/30/19 18:00 08/30/19 17:32 Mirapex 0.25 Mg Tablet PO 09/29/19 17:59 0.25 mg QPM BOUCHRA Administration Promethazine HCl 6.25 mg 08/30/19 13:29 Phenergan Inj 25 Mg/1 Ml Vial IV 09/29/19 13:28 Q4HP PRN FOR NAUSEA/VOMITING Ranolazine 500 mg 08/30/19 16:00 08/30/19 17:19 Ranexa 500 Mg Tab.Sr PO 09/29/19 15:59 500 mg DAILY BOUCHRA Administration Temazepam 7.5 mg 08/30/19 13:29 Restoril 7.5 Mg Capsule PO 09/06/19 13:28 HSP PRN SLEEP OR INSOMNIA Tramadol HCl 50 mg 08/30/19 22:00 08/30/19 22:02 Ultram 50 Mg Tablet PO 09/06/19 21:59 50 mg Q12 BOUCHRA Administration Discontinued Medications Generic Name Dose Route Start Last Admin Trade Name Freq PRN Reason Stop Dose Admin Furosemide 40 mg 08/30/19 07:20 08/30/19 08:04 Lasix Inj/Pf 20 Mg/2 Ml Sdv IV 08/30/19 07:21 Not Given NOW ONE Furosemide 40 mg 08/30/19 07:54 08/30/19 08:00 Lasix Inj/Pf 40 Mg/4 Ml Sdv IV 08/30/19 07:55 40 mg NOW ONE Administration Furosemide 20 mg 08/30/19 13:45 08/30/19 15:58 Lasix Inj/Pf 20 Mg/2 Ml Sdv IV 09/29/19 13:44 Not Given Q12 BOUCHRA Potassium Chloride 60 meq 08/30/19 06:59 08/30/19 07:30 Potassium Chloride 20 Meq Packet PO 08/30/19 07:00 Not Given NOW ONE Review of Systems Review of Systems: PHYSICAL EXAMINATION: The patient is a frail build at present at rest she is asymptomatic without shortness of breath and in no acute distress. Selected Entries 08/30/19 08/30/19 15:21 15:26 Temperature 98.7 F Temperature Oral Source Pulse Rate 70 Pulse Rate [ 75 Radial] Respiratory 17 17 Rate Blood Pressure 132/52 H Blood Pressure 132/84 H [Left Upper Arm ] Blood Pressure 78 Mean Blood Pressure 100 Mean [Left Upper Arm] Blood Pressure Supine Position [Left Upper Arm] BP Location Left Arm BP Position Supine O2 Sat by Pulse 100 100 Oximetry Oxygen Delivery Nasal Cannula Method ( includes room air) Oxygen Flow 2 2.00 Rate Oxygen Delivery Nasal Cannula Method Head is atraumatic. Normocephalic. EYES: Pupils are equal round regular reactive light accommodation. Extraocular movements are normal. There is no conjunctival pallor. There is no scleral icterus. EARS: Tympanic membranes are intact external auditory canals are clear. NOSE: There is no deviated nasal septum. There is no inflammation of the nasal mucosa mucous membrane. MOUTH: Mucous membranes of mouth are moist. Tongue is moist there is no ulcers. There is no bleeding of the gums. THROAT: There is no redness of the oropharynx. There is no exudates. SKIN: There is no skin lesions. There is no skin rashes. There is no petechia or ecchymosis. NECK: Supple. There is JVD present. Carotids are equal there is no carotid bruits. There is no lymphadenopathy. There is no goiter. There is no accessory muscle respiration use. TRACHEA: Central. LUNGS: The patient is dry leathery rales bibasilar suggestive of interstitial fibrosis. No evidence of left heart failure. HEART: S1-S2 is heard. There is no S3 gallop. There is no S4 gallop. Systolic murmur left sternal border and the apex there is no rub. ABDOMEN: Is soft there is no paraspinal megaly. Bowel sounds are well heard. EXTREMITIES: Femorals are diminished. There is no femoral bruits. Leg pulses are diminished. There is 1+ pedal edema bilaterally. There is no DVT or cellulitis. There is no calf tenderness. There is no cyanosis or clubbing. COSTUME CUTTER: The patient is conscious awake alert oriented x3 with no focal deficits. PSYCHIATRIC: The patient judgment insight are intact her affect is normal. Labs- Entire Visit 08/30/19 08/30/19 08/30/19 05:33 05:33 05:33 WBC 6.3 RBC 3.01 L Hgb 9.0 L Hct 26.9 L MCV 89 MCH 30.0 MCHC 33.5 RDW 14.8 H Plt Count 255 Lymph % (Auto) 6.9 L [place] % (Auto) 9.1 Eos % (Auto) 1.0 Baso % (Auto) 0.3 Absolute Neuts (auto) 5.2 Absolute Lymphs (auto) 0.4 L Absolute Monos (auto) 0.6 Absolute Eos (auto) 0.1 Absolute Basos (auto) 0.0 Seg Neutrophils % 82.7 H ESR Carbonic Acid HCO3/H2CO3 Ratio ABG pH ABG pCO2 ABG pO2 ABG HCO3 ABG Total CO2 ABG O2 Saturation ABG Base Excess FiO2 Sodium 131.7 L Potassium 3.6 Chloride 94 L Carbon Dioxide 30 Anion Gap 8 BUN 20 Creatinine 0.91 Est GFR ( Amer) > 60 Est GFR (MDRD) Non-Af 59 L Glucose 98 Calcium 8.3 L Magnesium Total Bilirubin 0.5 Direct Bilirubin 0.2 Neonat Total Bilirubin Not Reportable Neonat Direct Bilirubin Not Reportable Neonat Indirect Bili Not Reportable AST 15 ALT 8 Alkaline Phosphatase 70 Troponin I < 0.012 C-Reactive Protein NT-Pro-B Natriuret Pep 1660 H Total Protein 5.6 L Albumin 2.8 L Urine Color Urine Appearance Urine pH Ur Specific [place] Urine Protein Urine Glucose (UA) Urine Ketones Urine Blood Urine Nitrite Urine Bilirubin Urine Urobilinogen Ur Leukocyte Esterase Urine WBC (Auto) Urine RBC (Auto) U Hyaline Cast (Auto) Squamous Epi Cells Auto Uric Acid Cryst (Auto) Urine Mucus (Auto) Urine Ascorbic Acid 08/30/19 08/30/19 08/30/19 05:33 06:53 08:10 WBC RBC Hgb Hct MCV MCH MCHC RDW Plt Count Lymph % (Auto) [place] % (Auto) Eos % (Auto) Baso % (Auto) Absolute Neuts (auto) Absolute Lymphs (auto) Absolute Monos (auto) Absolute Eos (auto) Absolute Basos (auto) Seg Neutrophils % ESR Carbonic Acid 1.25 HCO3/H2CO3 Ratio 23:1 ABG pH 7.48 H ABG pCO2 41.6 ABG pO2 98.9 ABG HCO3 29.9 H ABG Total CO2 31.2 H ABG O2 Saturation 97.8 ABG Base Excess 5.8 FiO2 28% Sodium Potassium Chloride Carbon Dioxide Anion Gap BUN Creatinine Est GFR ( Amer) Est GFR (MDRD) Non-Af Glucose Calcium Magnesium 2.1 Total Bilirubin Direct Bilirubin Neonat Total Bilirubin Neonat Direct Bilirubin Neonat Indirect Bili AST ALT Alkaline Phosphatase Troponin I C-Reactive Protein NT-Pro-B Natriuret Pep Total Protein Albumin Urine Color YELLOW Urine Appearance CLEAR Urine pH 6.0 Ur Specific [place] 1.017 Urine Protein NEGATIVE Urine Glucose (UA) NEGATIVE Urine Ketones NEGATIVE Urine Blood NEGATIVE Urine Nitrite NEGATIVE Urine Bilirubin NEGATIVE Urine Urobilinogen NEGATIVE Ur Leukocyte Esterase NEGATIVE Urine WBC (Auto) 1 Urine RBC (Auto) 0 U Hyaline Cast (Auto) 1 Squamous Epi Cells Auto <1 Uric Acid Cryst (Auto) RARE Urine Mucus (Auto) RARE Urine Ascorbic Acid 40 H 08/30/19 08/30/19 08/30/19 08:50 16:25 16:26 WBC RBC Hgb Hct MCV MCH MCHC RDW Plt Count Lymph % (Auto) [place] % (Auto) Eos % (Auto) Baso % (Auto) Absolute Neuts (auto) Absolute Lymphs (auto) Absolute Monos (auto) Absolute Eos (auto) Absolute Basos (auto) Seg Neutrophils % ESR 35 H Carbonic Acid HCO3/H2CO3 Ratio ABG pH ABG pCO2 ABG pO2 ABG HCO3 ABG Total CO2 ABG O2 Saturation ABG Base Excess FiO2 Sodium Potassium Chloride Carbon Dioxide Anion Gap BUN Creatinine Est GFR ( Amer) Est GFR (MDRD) Non-Af Glucose Calcium Magnesium Total Bilirubin Direct Bilirubin Neonat Total Bilirubin Neonat Direct Bilirubin Neonat Indirect Bili AST ALT Alkaline Phosphatase Troponin I < 0.012 C-Reactive Protein NT-Pro-B Natriuret Pep Total Protein Albumin Urine Color YELLOW Urine Appearance CLOUDY Urine pH 8.0 Ur Specific [place] 1.029 Urine Protein NEGATIVE Urine Glucose (UA) NEGATIVE Urine Ketones NEGATIVE Urine Blood NEGATIVE Urine Nitrite NEGATIVE Urine Bilirubin NEGATIVE Urine Urobilinogen NEGATIVE Ur Leukocyte Esterase NEGATIVE Urine WBC (Auto) 4 Urine RBC (Auto) U Hyaline Cast (Auto) Squamous Epi Cells Auto 1 Uric Acid Cryst (Auto) Urine Mucus (Auto) RARE Urine Ascorbic Acid NEGATIVE 08/30/19 16:26 WBC RBC Hgb Hct MCV MCH MCHC RDW Plt Count Lymph % (Auto) [place] % (Auto) Eos % (Auto) Baso % (Auto) Absolute Neuts (auto) Absolute Lymphs (auto) Absolute Monos (auto) Absolute Eos (auto) Absolute Basos (auto) Seg Neutrophils % ESR Carbonic Acid HCO3/H2CO3 Ratio ABG pH ABG pCO2 ABG pO2 ABG HCO3 ABG Total CO2 ABG O2 Saturation ABG Base Excess FiO2 Sodium Potassium Chloride Carbon Dioxide Anion Gap BUN Creatinine Est GFR ( Amer) Est GFR (MDRD) Non-Af Glucose Calcium Magnesium Total Bilirubin Direct Bilirubin Neonat Total Bilirubin Neonat Direct Bilirubin Neonat Indirect Bili AST ALT Alkaline Phosphatase Troponin I C-Reactive Protein 64.7 H NT-Pro-B Natriuret Pep Total Protein Albumin Urine Color Urine Appearance Urine pH Ur Specific [place] Urine Protein Urine Glucose (UA) Urine Ketones Urine Blood Urine Nitrite Urine Bilirubin Urine Urobilinogen Ur Leukocyte Esterase Urine WBC (Auto) Urine RBC (Auto) U Hyaline Cast (Auto) Squamous Epi Cells Auto Uric Acid Cryst (Auto) Urine Mucus (Auto) Urine Ascorbic Acid Chest/Abdomen CTA 08/30/19 00:00 IMPRESSION: 1. NORMAL CTA OF THE CHEST. NO PULMONARY EMBOLI. 2. MILD CHRONIC SCARRING. PREVIOUS GRANULOMATOUS DISEASE. NO ACUTE FINDINGS. Chest X-Ray 08/30/19 06:33 IMPRESSION: STABLE MILD CARDIOMEGALY. CHRONIC INTERSTITIAL CHANGES. NO APPARENT ACUTE FINDINGS. EKG: Shows sinus rhythm. Cannot exclude old interupted inferior wall VT. ECHO: The left ventricle is normal in size. There is normal left ventricular wall thickness. LV EF is > than 65%.% Left ventricular systolic function is normal. Doppler measurements suggest impaired left ventricular relaxation, which is associated with grade I/IV or mild diastolic dysfunction The left ventricular wall motion is normal. There is no thrombus. No ASD,VSD , or PFO seen. The right atrium is normal. The left atrium is moderately dilated. There is no evidence of mitral valve prolapse. There is no vegetation seen on the mitral valve. There is no mitral valve stenosis. There is a trace amount of mitral regurgitation There is no aortic valvular vegetation. There is mild aortic stenosis There is a peak gradient of 32 mm of Hg. There is no LVOT obstruction. There is a trace to mild amount of aortic regurgitation There is no tricuspid stenosis. There is a mild amount of tricuspid regurgitation There is servere pulmonary hypertension by echo RVSP is 61 to 66 mm of Hg , with RA mean of 10 to 15. There is no pulmonic valvular stenosis. There is no pulmonic valvular regurgitation. The aortic root is normal size. The inferior vena cava appeared normal and decreased < 50% with respiration (RAP 10-15 mmHg) There is no pericardial effusion. The patient had an echocardiogram in February 2019 in the office. This showed mild aortic stenosis. Mild mitral stenosis. Trace mitral regurgitation. Mild tricuspid cuspid regurgitation. She had only mild pulmonary hypertension at that time with right mid systolic pressure 32 mmHg. The patient's pulmonary hypertension has progressed since then. IMPRESSION/RECOMMENDATION: 1. 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 No evidence of left heart failure. Hence would not treat aggressively with diuretics. 2. Severe pulmonary hypertension. Note that the patient sed rate and CRP are elevated. Hence would work-up for possible collagen vascular disease. Would recommend treating the patient with a centimeters or ARB. 3. Interstitial lung disease. The patient is CTA is got chronic interstitial fibrotic changes. Would recommend getting a collagen vascular work-up. 4. Coronary artery disease. History of old myocardial infarction ,history of coronary artery bypass graft surgery. No anginal symptoms. No evidence of VT this admission. 5. Hypertension. Blood pressure appears to be stable. 6. Mild renal insufficiency. Note that the patient's albumin is 2.8. Check urine to see if there is proteinuria. Discussed with the patient and patient's daughter. Medical decision making is of high complexity. 60 minutes spent as patient more than 50% time spent in direct patient care. Will follow.
[2019-08-30] MEDS: ENOXAPARIN SODIUM INJ 40 MG/0.4 ML DISP.SYRIN SUBCUT SCH (16:07)
[2019-08-30] MEDS: METOPROLOL TARTRATE 25 MG TABLET PO SCH ×2 (16:08→22:02)
[2019-08-30 17:05] LABS: APPEARANCE,URINE CLOUDY; BILIRUBIN,URINE NEGATIVE (NEGATIVE); COLOR,URINE YELLOW; GLUCOSE, URINE NEGATIVE (NEGATIVE); KETONES,URINE NEGATIVE (NEGATIVE); LEUKOCYTE ESTERASE,URINE NEGATIVE (NEGATIVE); NITRITE,URINE NEGATIVE (NEGATIVE); PROTEIN,URINE NEGATIVE (NEGATIVE); URINE SPECIFIC GRAVITY 1.029; UROBILINOGEN,URINE NEGATIVE mg/dL (<2.0)
[2019-08-30] MEDS: ASCORBIC ACID 500 MG TABLET PO SCH (17:19)
[2019-08-30] MEDS: ISOSORBIDE MONONITRATE 60 MG TAB.ER.24H PO SCH (17:19)
[2019-08-30] MEDS: FERROUS SULFATE 325 MG TABLET PO SCH (17:19)
[2019-08-30] MEDS: DOCUSATE SODIUM 100 MG CAPSULE PO SCH (17:19)
[2019-08-30] MEDS: RANOLAZINE 500 MG TAB.SR.12H PO SCH (17:19)
[2019-08-30] MEDS: PRAMIPEXOLE DI-HCL 0.25 MG TABLET PO SCH (17:32)
[2019-08-30] MEDS ORDERED: (PENDING PHARMACY ID) (Isosorbide Mononitrate [Isosorbide Mononitrate Er] 120 MG) PO SCH (18:00)
--- NOTE | 2019-08-30 21:14 | XCELERA REPORT ---
[address] [address] Transthoracic Echocardiogram Report Name: SUNITA BALLESTEROS Age: 84 yrs Gender: Female : 1935 Patient Status: Inpatient Patient Location: [address] [place], [place] [id number] Study Date: 08/30/2019 03:48 PM Height: 62 in Weight: 186 lb BSA: 1.9 m2 Procedure: A two-dimensional transthoracic echocardiogram with color flow and Doppler was performed. Study Quality: Fair. Reason For Study: Pulmonary Hypertension History: Pulmonary Hypertension / SOB. Ordering Physician: MARY SMITH Performed By: Tran Johnson Interpretation Summary The left ventricle is normal in size. There is normal left ventricular wall thickness. LV EF is > than 65%.% Left ventricular systolic function is normal. Doppler measurements suggest impaired left ventricular relaxation, which is associated with grade I/IV or mild diastolic dysfunction The left ventricular wall motion is normal. There is no thrombus. No ASD,VSD , or PFO seen. The right atrium is normal. The left atrium is moderately dilated. There is no evidence of mitral valve prolapse. There is no vegetation seen on the mitral valve. There is no mitral valve stenosis. There is a trace amount of mitral regurgitation There is no aortic valvular vegetation. There is mild aortic stenosis There is a peak gradient of 32 mm of Hg. There is no LVOT obstruction. There is a trace to mild amount of aortic regurgitation There is no tricuspid stenosis. There is a mild amount of tricuspid regurgitation There is servere pulmonary hypertension by echo RVSP is 61 to 66 mm of Hg , with RA mean of 10 to 15. There is no pulmonic valvular stenosis. There is no pulmonic valvular regurgitation. The aortic root is normal size. The inferior vena cava appeared normal and decreased < 50% with respiration (RAP 10-15 mmHg) There is no pericardial effusion. MMode/2D Measurements & Calculations RVDd: 3.0 cm LVIDd: 4.9 cm FS: 38.9 % Ao root diam: 3.1 cm IVSd: 0.81 cm LVIDs: 3.0 cm EDV(Teich): 113.9 ml Ao root area: 7.3 cm2 LVPWd: 1.0 cm ESV(Teich): 35.1 ml EF(Teich): 69.2 % LVOT diam: 1.7 cm LVOT area: 2.2 cm2 Doppler Measurements & Calculations MV E max cherri: MV dec slope: Ao V2 max: AI max cherri: 152.8 cm/sec 739.9 cm/sec2 286.0 cm/sec 376.6 cm/sec MV A max cherri: MV dec time: Ao max PG: AI max P.7 mmHg 178.3 cm/sec 0.21 sec 32.7 mmHg AI dec slope: MV E/A: 0.86 CHARLEY(V,D): 0.87 [id number] cm/sec2 AI P1/2t: 396.1 msec LV V1 max PG: PA V2 max: TR max cherri: 4.9 mmHg 90.6 cm/sec 357.1 cm/sec LV V1 max: PA max P.3 mmHg TR max P.8 cm/sec 51.0 mmHg Left Ventricle The left ventricle is normal in size. There is normal left ventricular wall thickness. LV EF is > than 65%.%. Left ventricular systolic function is normal. Doppler measurements suggest impaired left ventricular relaxation, which is associated with grade I/IV or mild diastolic dysfunction. The left ventricular wall motion is normal. There is no thrombus. No ASD,VSD , or PFO seen. Right Ventricle The right ventricle is normal in size and function. Atria The right atrium is normal. The left atrium is moderately dilated. Mitral Valve There is no evidence of mitral valve prolapse. There is no vegetation seen on the mitral valve. There is no mitral valve stenosis. There is a trace amount of mitral regurgitation. Aortic Valve There is no aortic valvular vegetation. There is mild aortic stenosis. There is a peak gradient of 32 mm of Hg. There is no LVOT obstruction. There is a trace to mild amount of aortic regurgitation. Tricuspid Valve There is no tricuspid stenosis. There is a mild amount of tricuspid regurgitation. There is servere pulmonary hypertension by echo. RVSP is 61 to 66 mm of Hg , with RA mean of 10 to 15. Pulmonic Valve There is no pulmonic valvular stenosis. There is no pulmonic valvular regurgitation. Great Vessels The aortic root is normal size. The inferior vena cava appeared normal and decreased < 50% with respiration (RAP 10-15 mmHg). Effusions There is no pericardial effusion. : MARY SMITH, Mary
[2019-08-30] MEDS: FAMOTIDINE 20 MG TABLET PO SCH (22:02)
[2019-08-30] MEDS: TRAMADOL HCL 50 MG TABLET PO SCH (22:02)
[2019-08-31 06:04] LABS: ABSOLUTE EOSINOPHILS # (AUTO) 0.1 10^3/uL (0.0-0.6); ABSOLUTE LYMPHOCYTES (AUTO) 0.5 10^3/uL (0.5-4.7); ABSOLUTE MONOCYTES (AUTO) 0.4 10^3/uL (0.1-1.4); ABSOLUTE NEUT (AUTO) 2.9 10^3/uL (1.7-8.2); BASOPHILS % (AUTO) 0.4 % (0-2); HEMATOCRIT 24.7 % (36.0-47.0); HEMOGLOBIN 8.4 g/dL (12.0-15.5); LYMPHOCYTES % (AUTO) 12.6 % (13-45); MEAN CORPUSCULAR HEMOGLOBIN 29.8 pg (27.0-33.4); MEAN CORPUSCULAR HGB CONC 33.9 g/dL (32.0-36.0); MEAN CORPUSCULAR VOLUME 88 fl (80-97); MONOCYTES % (AUTO) 11.1 % (3-13); PLATELET COUNT 209 10^3/uL (150-450); RED CELL DISTRIBUTION WIDTH 14.5 % (11.5-14.0); SEGMENTED NEUTROPHILS % (AUTO) 72.9 % (42-78); TOTAL CELLS COUNTED % (AUTO) 100 %
[2019-08-31 06:29] LABS: ANION GAP 7 (5-19); BLOOD UREA NITROGEN 18 mg/dL (7-20); CALCIUM 7.5 mg/dL (8.4-10.2); CARBON DIOXIDE 31 mmol/L (22-30); CHLORIDE 92 mmol/L (98-107); GLUCOSE 87 mg/dL (75-110); POTASSIUM 3.5 mmol/L (3.6-5.0)
[2019-08-31] MEDS: LISINOPRIL 5 MG TABLET PO SCH ×2 (09:39→21:13)
[2019-08-31] MEDS: METOPROLOL TARTRATE 25 MG TABLET PO SCH ×2 (09:39→21:13)
[2019-08-31] MEDS: RANOLAZINE 500 MG TAB.SR.12H PO SCH (09:39)
[2019-08-31] MEDS: ASPIRIN 81 MG TABLET, ENT COATED PO SCH (09:39)
[2019-08-31] MEDS: FAMOTIDINE 20 MG TABLET PO SCH ×2 (09:39→21:15)
[2019-08-31] MEDS: DOCUSATE SODIUM 100 MG CAPSULE PO SCH ×2 (09:39→17:03)
[2019-08-31] MEDS: TRAMADOL HCL 50 MG TABLET PO SCH ×2 (09:39→21:15)
[2019-08-31] MEDS: ENOXAPARIN SODIUM INJ 40 MG/0.4 ML DISP.SYRIN SUBCUT SCH (09:40)
[2019-08-31] MEDS: MAGNESIUM OXIDE 400 MG TABLET PO SCH (09:40)
[2019-08-31] MEDS: ASCORBIC ACID 500 MG TABLET PO SCH ×2 (09:40→17:03)
[2019-08-31] MEDS: CYCLOSPORINE 0.05% OPH EMULSIO 0.4 ML DROPERETTE OU SCH ×2 (09:41→17:03)
[2019-08-31] MEDS ORDERED: (PENDING PHARMACY ID) (Magnesium [Magnesium] 250 MG) PO SCH (10:00)
[2019-08-31] MEDS ORDERED: (PENDING PHARMACY ID) (Ubidecarenone/Vit E Acet [Co Q-10 100 Mg Softgel] 1 EACH) PO SCH (10:00)
[2019-08-31] MEDS: PRAMIPEXOLE DI-HCL 0.25 MG TABLET PO SCH (17:03)
[2019-08-31] MEDS: ISOSORBIDE MONONITRATE 60 MG TAB.ER.24H PO SCH (17:03)
[2019-08-31] MEDS ORDERED: ALBUTEROL SULFATE 0.083% NEB 2.5 MG/3 ML AMPUL NEB PRN (17:51)
--- NOTE | 2019-08-31 18:12 | PDOC PROGRESS REPORT ---
Subjective Progress Note for:: 08/31/19 Subjective:: Patient complains of weakness in her legs. Currently denies any other symptoms. Denies any shortness of breath, diarrhea, nausea or vomiting. Reason For Visit: ACUTE CHF, AFIB, WEAKNESS Physical Exam Vital Signs: Temp Pulse Resp BP Pulse Ox 99.2 F 66 18 101/48 L 97 08/31/19 15:24 08/31/19 15:24 08/31/19 15:24 08/31/19 15:24 08/31/19 15:24 Intake & Output 08/30/19 08/31/19 09/01/19 06:59 06:59 06:59 Intake Total 545 490 Output Total 1125 200 Balance -580 290 Weight 84.368 kg 83.5 kg General appearance: PRESENT: no acute distress, cooperative Respiratory exam: PRESENT: crackles, symmetrical, unlabored. ABSENT: tachypnea, wheezes Cardiovascular exam: PRESENT: RRR, +S1, +S2. ABSENT: tachycardia GI/Abdominal exam: PRESENT: normal bowel sounds, soft. ABSENT: rebound, rigid, tenderness Extremities exam: PRESENT: other - Nonpitting bilateral lower extremity edema Neurological exam: PRESENT: alert, awake Results Laboratory Results: 08/31/19 05:38 08/31/19 05:38 08/31/19 08/31/19 08/31/19 05:38 05:38 05:38 WBC 4.0 RBC 2.80 L Hgb 8.4 L Hct 24.7 L MCV 88 MCH 29.8 MCHC 33.9 RDW 14.5 H Plt Count 209 Seg Neutrophils % 72.9 Sodium 129.6 L Potassium 3.5 L Chloride 92 L Carbon Dioxide 31 H Anion Gap 7 BUN 18 Creatinine 0.93 Est GFR ( Amer) > 60 Glucose 87 Calcium 7.5 L Magnesium 2.1 TSH 2.15 08/30/19 08/30/19 05:33 08:50 Troponin I < 0.012 < 0.012 NT-Pro-B Natriuret Pep 1660 H Impressions: Chest/Abdomen CTA 08/30/19 00:00 IMPRESSION: 1. NORMAL CTA OF THE CHEST. NO PULMONARY EMBOLI. 2. MILD CHRONIC SCARRING. PREVIOUS GRANULOMATOUS DISEASE. NO ACUTE FINDINGS. Chest X-Ray 08/30/19 06:33 IMPRESSION: STABLE MILD CARDIOMEGALY. CHRONIC INTERSTITIAL CHANGES. NO APPARENT ACUTE FINDINGS. Assessment and Plan - Diagnosis (1) Acute and chronic respiratory failure with hypoxia Is this a current diagnosis for this admission?: Yes Plan: Patient occasionally noted to desat into the 80s initially on admission but has been maintaining proper SPO2 levels since We will perform ambulatory pulse ox tomorrow This is likely secondary to fibrotic lung disease (2) Severe pulmonary arterial systolic hypertension Is this a current diagnosis for this admission?: Yes Plan: Echocardiogram shows RVSP of 61-66 with normal LV systolic function. It is possible that Patient might be having some component of chronic right ventricular systolic failure from her chronic lung disease but no need for diuresis. Cardiology following. Goal targeted towards evaluation and treatment of lung disease No evidence of pulmonary venous hypertension from left ventricular failure CTA of the chest showed chronic fibrotic lung disease I will obtain full PFTs to assess for possible restrictive features Patient will ultimately require HRCT scan for proper characterization of interstitial lung disease pattern to see if she would benefit from steroids (3) Chronic interstitial lung disease Is this a current diagnosis for this admission?: Yes Plan: Plan as listed in problem #2 (4) Weakness Is this a current diagnosis for this admission?: Yes Plan: Denies any focal neurological symptoms. We will consult PT/OT. Evaluate for rehab. (5) Hypertension Is this a current diagnosis for this admission?: Yes Plan: Continue antihypertensives (6) CAD (coronary artery disease) Qualifiers: Coronary Disease-Associated Artery/Lesion type: bypass graft, autologous artery Is this a current diagnosis for this admission?: Yes Plan: Denies any anginal symptoms. Troponins negative. EKG no acute changes. Antiplatelets, statins, beta-blockers, LISA. Outpatient PCP follow-up. - Time Time Spent with patient: Less than 15 minutes
[2019-08-31] MEDS ORDERED: NORMAL SALINE 1000 ML 1,000 ML IV PRN (18:13)
[2019-08-31] MEDS ORDERED: POTASSIUM CHLORIDE 10 MEQ TABLET.ER PO ONE ×2 (18:14→23:34)
--- NOTE | 2019-08-31 19:32 | Progress Note ---
Provider Note Provider Note: CARDIOLOGY PROGRESS NOTE by Dr. Mary Eugene on 08/31/2019. OBJECTIVE: The patient at rest denies any shortness of breath. She does have some orthopnea but no PND. Her leg edema is almost resolved. There is no arrhythmia seen on the monitor. There is no TIA CVA symptoms. She denies any chest pain or discomfort. There is no dizziness or near syncope or syncope. PHYSICAL EXAMINATION: The patient is mildly obese. In no acute distress. Selected Entries 08/31/19 15:24 Temperature 99.2 F Temperature Oral Source Pulse Rate 66 Respiratory 18 Rate Blood Pressure 101/48 L Blood Pressure 65 Mean BP Location Right Arm BP Position Supine O2 Sat by Pulse 97 Oximetry Oxygen Flow 2.00 Rate Oxygen Delivery Nasal Cannula Method Head is atraumatic. Normocephalic. EYES: Pupils are equal round regular reactive light accommodation. Extraocular movements are normal. There is no conjunctival pallor. There is no scleral icterus. EARS: Tympanic membranes are intact external auditory canals are clear. NOSE: There is no deviated nasal septum. There is no inflammation of the nasal mucosa mucous membrane. MOUTH: Mucous membranes of mouth are moist. Tongue is moist there is no ulcers. There is no bleeding of the gums. THROAT: There is no redness of the oropharynx. There is no exudates. SKIN: There is no skin lesions. There is no skin rashes. There is no petechia or ecchymosis. NECK: Supple. There is JVD present. Carotids are equal there is no carotid bruits. There is no lymphadenopathy. There is no goiter. There is no accessory muscle respiration use. TRACHEA: Central. LUNGS: The patient is dry leathery rales bibasilar suggestive of interstitial fibrosis. No evidence of left heart failure. HEART: S1-S2 is heard. There is no S3 gallop. There is no S4 gallop. Systolic murmur left sternal border and the apex there is no rub. ABDOMEN: Is soft there is no paraspinal megaly. Bowel sounds are well heard. EXTREMITIES: Femorals are diminished. There is no femoral bruits. Leg pulses are diminished. There is 1+ pedal edema bilaterally. There is no DVT or cellulitis. There is no calf tenderness. There is no cyanosis or clubbing. IMPORT/EXPORT SPECIALIST: The patient is conscious awake alert oriented x3 with no focal deficits. PSYCHIATRIC: The patient judgment insight are intact her affect is normal. Labs- All tests 24 hr 08/31/19 08/31/19 08/31/19 05:38 05:38 05:38 WBC 4.0 RBC 2.80 L Hgb 8.4 L Hct 24.7 L MCV 88 MCH 29.8 MCHC 33.9 RDW 14.5 H Plt Count 209 Lymph % (Auto) 12.6 L [place] % (Auto) 11.1 Eos % (Auto) 3.0 Baso % (Auto) 0.4 Absolute Neuts (auto) 2.9 Absolute Lymphs (auto) 0.5 Absolute Monos (auto) 0.4 Absolute Eos (auto) 0.1 Absolute Basos (auto) 0.0 Seg Neutrophils % 72.9 Sodium 129.6 L Potassium 3.5 L Chloride 92 L Carbon Dioxide 31 H Anion Gap 7 BUN 18 Creatinine 0.93 Est GFR ( Amer) > 60 Est GFR (MDRD) Non-Af 57 L Glucose 87 Calcium 7.5 L Magnesium 2.1 TSH 2.15 Rheumatoid Factor 08/31/19 05:38 WBC RBC Hgb Hct MCV MCH MCHC RDW Plt Count Lymph % (Auto) [place] % (Auto) Eos % (Auto) Baso % (Auto) Absolute Neuts (auto) Absolute Lymphs (auto) Absolute Monos (auto) Absolute Eos (auto) Absolute Basos (auto) Seg Neutrophils % Sodium Potassium Chloride Carbon Dioxide Anion Gap BUN Creatinine Est GFR ( Amer) Est GFR (MDRD) Non-Af Glucose Calcium Magnesium TSH Rheumatoid Factor NEGATIVE Chest/Abdomen CTA 08/30/19 00:00 IMPRESSION: 1. NORMAL CTA OF THE CHEST. NO PULMONARY EMBOLI. 2. MILD CHRONIC SCARRING. PREVIOUS GRANULOMATOUS DISEASE. NO ACUTE FINDINGS. Chest X-Ray 08/30/19 06:33 IMPRESSION: STABLE MILD CARDIOMEGALY. CHRONIC INTERSTITIAL CHANGES. NO APPARENT ACUTE FINDINGS. IMPRESSION/RECOMMENDATION: 1. 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 No evidence of left heart failure. Hence would not treat aggressively with diuretics. 2. Severe pulmonary hypertension. Note that the patient sed rate and CRP are elevated. Hence would work-up for possible collagen vascular disease. Would recommend treating the patient with a centimeters or ARB. 3. Interstitial lung disease. The patient is CTA is got chronic interstitial fibrotic changes. Would recommend getting a collagen vascular work-up. Since there is no evidence of infection consider starting the patient on steroids. 4. Coronary artery disease. History of old myocardial infarction ,history of coronary artery bypass graft surgery. No anginal symptoms. No evidence of [place] this admission. 5. Hypertension. Blood pressure appears to be stable. 6. Mild renal insufficiency. Note that the patient's albumin is 2.8. There is no proteinuria. 7. Hypokalemia: Replace potassium. Recommend pulmonary consult. Medications reviewed. Medical regimen and management plan discussed with attending physician on the case. Medical decision making is of moderate to high complexity. 40 minutes spent on this patient more than 50% of time spent in direct patient care. Will follow.
[2019-09-01 08:14] LABS: ANION GAP 6 (5-19); BLOOD UREA NITROGEN 24 mg/dL (7-20); CALCIUM 7.2 mg/dL (8.4-10.2); CARBON DIOXIDE 31 mmol/L (22-30); CHLORIDE 92 mmol/L (98-107); GLUCOSE 89 mg/dL (75-110); POTASSIUM 4.5 mmol/L (3.6-5.0)
[2019-09-01] MEDS: METOPROLOL TARTRATE 25 MG TABLET PO SCH ×2 (09:33→21:05)
[2019-09-01] MEDS: DOCUSATE SODIUM 100 MG CAPSULE PO SCH ×2 (09:33→17:07)
[2019-09-01] MEDS: MAGNESIUM OXIDE 400 MG TABLET PO SCH (09:33)
[2019-09-01] MEDS: ASPIRIN 81 MG TABLET, ENT COATED PO SCH (09:33)
[2019-09-01] MEDS: LISINOPRIL 5 MG TABLET PO SCH ×2 (09:33→21:05)
[2019-09-01] MEDS: RANOLAZINE 500 MG TAB.SR.12H PO SCH (09:33)
[2019-09-01] MEDS: ASCORBIC ACID 500 MG TABLET PO SCH ×2 (09:33→17:12)
[2019-09-01] MEDS: TRAMADOL HCL 50 MG TABLET PO SCH ×2 (09:34→21:05)
[2019-09-01] MEDS: FAMOTIDINE 20 MG TABLET PO SCH ×2 (09:35→21:05)
[2019-09-01] MEDS: CYCLOSPORINE 0.05% OPH EMULSIO 0.4 ML DROPERETTE OU SCH ×2 (09:38→17:13)
[2019-09-01] MEDS: ENOXAPARIN SODIUM INJ 40 MG/0.4 ML DISP.SYRIN SUBCUT SCH (09:38)
--- NOTE | 2019-09-01 13:17 | PDOC PROGRESS REPORT ---
Subjective Progress Note for:: 09/01/19 Subjective:: Patient denies any shortness of breath or chest pain today. Currently feels comfortable. Was able to ambulate. Reason For Visit: ACUTE CHF, AFIB, WEAKNESS Physical Exam Vital Signs: Temp Pulse Resp BP Pulse Ox 98.1 F 67 18 117/48 L 89 L 09/01/19 10:55 09/01/19 10:55 09/01/19 10:55 09/01/19 10:55 09/01/19 10:55 Intake & Output 08/31/19 09/01/19 09/02/19 06:59 06:59 06:59 Intake Total 545 1070 1000 Output Total 1125 500 Balance -133 755 0962 Weight 83.5 kg 85.7 kg General appearance: PRESENT: no acute distress, cooperative Neck exam: ABSENT: JVD Respiratory exam: PRESENT: rales, symmetrical, unlabored. ABSENT: tachypnea, wheezes Cardiovascular exam: PRESENT: RRR, +S1, +S2, systolic murmur. ABSENT: tachycardia GI/Abdominal exam: PRESENT: normal bowel sounds, soft. ABSENT: rebound, rigid, tenderness Extremities exam: PRESENT: other - Nonpitting bilateral lower extremity edema Neurological exam: PRESENT: alert, awake, oriented to person, oriented to place, oriented to time Results Laboratory Results: 08/31/19 05:38 09/01/19 07:17 09/01/19 07:17 Sodium 128.7 L Potassium 4.5 Chloride 92 L Carbon Dioxide 31 H Anion Gap 6 BUN 24 H Creatinine 1.15 Est GFR ( Amer) 54 L Glucose 89 Calcium 7.2 L 08/30/19 08/30/19 05:33 08:50 Troponin I < 0.012 < 0.012 NT-Pro-B Natriuret Pep 1660 H Impressions: Chest/Abdomen CTA 08/30/19 00:00 IMPRESSION: 1. NORMAL CTA OF THE CHEST. NO PULMONARY EMBOLI. 2. MILD CHRONIC SCARRING. PREVIOUS GRANULOMATOUS DISEASE. NO ACUTE FINDINGS. Chest X-Ray 08/30/19 06:33 IMPRESSION: STABLE MILD CARDIOMEGALY. CHRONIC INTERSTITIAL CHANGES. NO APPARENT ACUTE FINDINGS. Assessment and Plan - Diagnosis (1) Acute and chronic respiratory failure with hypoxia Is this a current diagnosis for this admission?: Yes Plan: Patient occasionally noted to desat into the 80s initially on admission but has been maintaining proper SPO2 levels since Check ambulatory pulse ox tomorrow to see if patient qualifies for home oxygen This is likely secondary to chronic fibrotic lung disease (2) Severe pulmonary arterial systolic hypertension Is this a current diagnosis for this admission?: Yes Plan: Echocardiogram shows RVSP of 61-66 with normal LV systolic function. It is possible that Patient might be having some component of chronic right ventricular systolic failure from her chronic lung disease but no need for diuresis. Cardiology following. Therapy targeted towards evaluation and treatment of lung disease No evidence of pulmonary venous hypertension from left ventricular failure CTA of the chest showed chronic fibrotic lung disease I will obtain full PFTs to assess for possible restrictive features May need HRCT for better characterization of interstitial lung disease pattern to see if she would benefit from steroids I will follow-up with serologies placed to evaluate for connective tissue diseases Dr. Aguilera consulted for evaluation of pulmonary hypertension and potential need for RHC (3) Chronic interstitial lung disease Is this a current diagnosis for this admission?: Yes Plan: Plan as listed in problem #2 (4) Weakness Is this a current diagnosis for this admission?: Yes Plan: Denies any focal neurological symptoms. PT/OT and social work/town planner involved. Patient will need rehab. (5) Hypertension Is this a current diagnosis for this admission?: Yes Plan: Continue antihypertensives (6) CAD (coronary artery disease) Qualifiers: Coronary Disease-Associated Artery/Lesion type: bypass graft, autologous artery Is this a current diagnosis for this admission?: Yes Plan: Denies any anginal symptoms. Troponins negative. EKG no acute changes. Antiplatelets, statins, beta-blockers, LISA. Outpatient PCP follow-up. - Time Time Spent with patient: Less than 15 minutes
[2019-09-01] MEDS: PRAMIPEXOLE DI-HCL 0.25 MG TABLET PO SCH (17:12)
[2019-09-01] MEDS: FERROUS SULFATE 325 MG TABLET PO SCH (17:12)
[2019-09-01] MEDS: ISOSORBIDE MONONITRATE 60 MG TAB.ER.24H PO SCH (17:13)
--- NOTE | 2019-09-01 19:15 | Progress Note ---
Provider Note Provider Note: CARDIOLOGY progress NOTE by Dr. Mary Eugene on 09/01/2019. Subjective: The patient still complains of generalized weakness. Her worsening O2 saturation went down to 89% on room air. The patient is unable to ambulate in spite of physical therapy to see if the patient desaturates when ambulating. She denies any chest pain discomfort. There is no shortness of breath at rest. There is no PND orthopnea. Her leg edema is only is resolved. There is no TIA CVA symptoms. There is no arrhythmia seen on the monitor. PHYSICAL EXAMINATION: The patient is mildly moderately obese. In no acute distress Selected Entries 09/01/19 09/01/19 07:42 10:55 Temperature 98.1 F Temperature Oral Source Pulse Rate 67 Respiratory 18 Rate Blood Pressure 117/48 L Blood Pressure 71 Mean BP Location Left Arm BP Position Sitting O2 Sat by Pulse 100 89 L Oximetry Oxygen Flow 3.00 Rate Oxygen Delivery Nasal Cannula Room Air Method Head is atraumatic. Normocephalic. EYES: Pupils are equal round regular reactive light accommodation. Extraocular movements are normal. There is no conjunctival pallor. There is no scleral icterus. EARS: Tympanic membranes are intact external auditory canals are clear. NOSE: There is no deviated nasal septum. There is no inflammation of the nasal mucosa mucous membrane. MOUTH: Mucous membranes of mouth are moist. Tongue is moist there is no ulcers. There is no bleeding of the gums. THROAT: There is no redness of the oropharynx. There is no exudates. SKIN: There is no skin lesions. There is no skin rashes. There is no petechia or ecchymosis. NECK: Supple. There is JVD present. Carotids are equal there is no carotid bruits. There is no lymphadenopathy. There is no goiter. There is no accessory muscle respiration use. TRACHEA: Central. LUNGS: The patient is dry leathery rales bibasilar suggestive of interstitial fibrosis. No evidence of left heart failure. HEART: S1-S2 is heard. There is no S3 gallop. There is no S4 gallop. Systolic murmur left sternal border and the apex there is no rub. ABDOMEN: Is soft there is no paraspinal megaly. Bowel sounds are well heard. EXTREMITIES: Femorals are diminished. There is no femoral bruits. Leg pulses are diminished. There is 1+ pedal edema bilaterally. There is no DVT or cellulitis. There is no calf tenderness. There is no cyanosis or clubbing. HEATING AND VENTILATING DRAFTER: The patient is conscious awake alert oriented x3 with no focal deficits. PSYCHIATRIC: The patient judgment insight are intact her affect is normal. Labs- All tests 24 hr 08/31/19 09/01/19 05:38 07:17 Sodium 128.7 L Potassium 4.5 Chloride 92 L Carbon Dioxide 31 H Anion Gap 6 BUN 24 H Creatinine 1.15 Est GFR ( Amer) 54 L Est GFR (MDRD) Non-Af 45 L Glucose 89 Calcium 7.2 L MJ (Multiplex) Negative Double Strand DNA Ab 6 Tot Complement (CH50) 48 Chest/Abdomen CTA 08/30/19 00:00 IMPRESSION: 1. NORMAL CTA OF THE CHEST. NO PULMONARY EMBOLI. 2. MILD CHRONIC SCARRING. PREVIOUS GRANULOMATOUS DISEASE. NO ACUTE FINDINGS. Chest X-Ray 08/30/19 06:33 IMPRESSION: STABLE MILD CARDIOMEGALY. CHRONIC INTERSTITIAL CHANGES. NO APPARENT ACUTE FINDINGS. IMPRESSION/RECOMMENDATION: 1. 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 No evidence of left heart failure. Hence would not treat aggressively with diuretics. 2. Severe pulmonary hypertension. Note that the patient sed rate and CRP are elevated. The patient's complement, DNA and MJ are all negative, and hence no evidence of collagen vascular disease. We will repeat the patient's CT of the chest high-resolution without contrast. Would recommend treating the patient with a centimeters or ARB. 3. Interstitial lung disease. The patient is CTA is got chronic interstitial fibrotic changes. Would recommend getting a collagen vascular work-up. Since there is no evidence of infection consider starting the patient on steroids. 4. Coronary artery disease. History of old myocardial infarction ,history of coronary artery bypass graft surgery. No anginal symptoms. No evidence of [place] this admission. 5. Hypertension. Blood pressure appears to be stable. 6. Mild renal insufficiency. Note that the patient's albumin is 2.8. There is no proteinuria. 7. Hypokalemia: Solved. Hyponatremia: Recommend restrict free fluids. Recommend pulmonary consult. Medications reviewed. Medical regimen and management plan discussed with attending physician on the case. Medical decision making is of moderate to high complexity. 40 minutes spent on this patient more than 50% of time spent in direct patient care. Will follow.
[2019-09-02 07:31] LABS: BLOOD UREA NITROGEN 24 mg/dL (7-20); CALCIUM 7.1 mg/dL (8.4-10.2); CARBON DIOXIDE 30 mmol/L (22-30); CHLORIDE 94 mmol/L (98-107); GLUCOSE 86 mg/dL (75-110); POTASSIUM 4.7 mmol/L (3.6-5.0)
[2019-09-02 07:41] LABS: ANION GAP 4 (5-19)
[2019-09-02] MEDS: DOCUSATE SODIUM 100 MG CAPSULE PO SCH ×2 (09:46→17:48)
[2019-09-02] MEDS: LISINOPRIL 5 MG TABLET PO SCH ×2 (09:51→21:38)
[2019-09-02] MEDS: MAGNESIUM OXIDE 400 MG TABLET PO SCH (09:51)
[2019-09-02] MEDS: ASPIRIN 81 MG TABLET, ENT COATED PO SCH (09:51)
[2019-09-02] MEDS: ASCORBIC ACID 500 MG TABLET PO SCH ×2 (09:51→17:56)
[2019-09-02] MEDS: FAMOTIDINE 20 MG TABLET PO SCH ×2 (09:51→21:38)
[2019-09-02] MEDS: RANOLAZINE 500 MG TAB.SR.12H PO SCH (09:51)
[2019-09-02] MEDS: TRAMADOL HCL 50 MG TABLET PO SCH ×2 (09:51→21:38)
[2019-09-02] MEDS: METOPROLOL TARTRATE 25 MG TABLET PO SCH ×2 (09:52→21:38)
[2019-09-02] MEDS: ENOXAPARIN SODIUM INJ 40 MG/0.4 ML DISP.SYRIN SUBCUT SCH (09:54)
[2019-09-02 09:56] LABS: OSMOLALITY,URINE 519 mOsm/kg (300-900)
[2019-09-02] MEDS: CYCLOSPORINE 0.05% OPH EMULSIO 0.4 ML DROPERETTE OU SCH ×2 (09:56→17:57)
[2019-09-02 10:02] LABS: URINE SODIUM 150 mmol/L (30-90)
--- NOTE | 2019-09-02 10:22 | RADIOLOGY REPORT (SQ) ---
EXAM DESCRIPTION: CT CHEST WITHOUT COMPLETED DATE/TIME: 09/02/2019 8:29 am REASON FOR STUDY: Interstitial Fibrosis: HI-RES J15.0 PNEUMONIA DUE TO KLEBSIELLA PNEUMONIAE E03.9 HYPOTHYROIDISM, UNSPECIFIED R06.02 SHORTNESS OF BREATH COMPARISON: CT chest 08/30/2019 TECHNIQUE: CT scan performed of the chest without intravenous contrast. Images reviewed with lung, soft tissue and bone windows. High-resolution protocol was used, with 1 mm slices every 10 mm. Patient was scanned in the prone an d supine orientations. Reconstructed coronal and sagittal MPR images reviewed. All images stored on PACS. All CT scanners at this facility use dose modulation, iterative reconstruction, and/or weight based d osing when appropriate to reduce radiation dose to as low as reasonably achievable (ALARA). [facility]: Dose Right [facility]: CareDose [facility]: Dose Right [facility]: Teradose 4D [facility]: Ium RADIATION DOSE: CT Rad equipment meets quality standard of care and radiation dose reduction techniq ues were employed. CTDIvol: 2.2 mGy. DLP: 120 mGy-cm. mGy. LIMITATIONS: No technical limitations. FINDINGS: LUNGS AND PLEURA: High-resolution protocol. There is dependent atelectasis throughout the posterior aspect of the right upper lobe and bilateral lower lobes on the supine imaging. Prone, atelectasis partially clears. Both prone and supine imaging demonstrates some end-stage pulmonary fibrosis with honeycombing around the periphery of both lungs, likely usual interstitial fibrosis. Trace right pleural effusion. No pneumothorax. HILAR AND MEDIASTINAL STRUCTURES: No identified masses or abnormal nodes. No obvious aneurysm. HEART AND VASCULAR STRUCTURES: No aneurysm. No pericardial effusion. Calcified coronary arteries UPPER ABDOMEN: Not well seen THYROID AND OTHER SOFT TISSUES: Not well seen BONES: No significant finding. HARDWARE: None in the chest. OTHER: No other significant findings. IMPRESSION: Trace right pleural fluid Dependent bibasilar atelectasis. Mild honeycomb appearance around the periphery of both upper lobes likely indicating mild pulmonary f ibrosis TECHNICAL DOCUMENTATION: JOB ID: [id number] Quality ID # [id number]: Final reports with documentation of one or more dose reduction techniques (e.g., Au tomated exposure control, adjustment of the mA and/or kV according to patient size, use of iterative reconstruction technique) 2010 [employer]- All Rights Reserved Reading location - IP/workstation name: [email or web address]
--- NOTE | 2019-09-02 14:25 | PDOC PROGRESS REPORT ---
Subjective Progress Note for:: 09/02/19 Subjective:: Patient feels well today. Denies any shortness of breath. Reason For Visit: SEVERE PULMONARY HYPERTENSION Physical Exam Vital Signs: Temp Pulse Resp BP Pulse Ox 99.8 F 74 18 133/59 H 100 09/02/19 07:40 09/02/19 07:40 09/02/19 07:40 09/02/19 07:40 09/02/19 07:40 Intake & Output 09/01/19 09/02/19 09/03/19 06:59 06:59 06:59 Intake Total 1070 1960 Output Total 500 1000 Balance 570 960 Weight 85.7 kg 88.6 kg General appearance: PRESENT: no acute distress, cooperative Respiratory exam: PRESENT: crackles, unlabored. ABSENT: tachypnea, wheezes Cardiovascular exam: PRESENT: RRR, +S1, +S2. ABSENT: tachycardia GI/Abdominal exam: PRESENT: normal bowel sounds, soft. ABSENT: rebound, rigid, tenderness Extremities exam: PRESENT: other - Nonpitting bilateral lower extremity edema Neurological exam: PRESENT: alert, awake Results Laboratory Results: 08/31/19 05:38 09/02/19 06:16 09/02/19 09/02/19 09/02/19 06:16 06:16 09:16 Sodium 127.5 L Potassium 4.7 Chloride 94 L Carbon Dioxide 30 Anion Gap 4 L BUN 24 H Creatinine 1.03 Est GFR ( Amer) > 60 Glucose 86 Serum Osmolality 267 L Calcium 7.1 L Urine Osmolality 519 08/30/19 08/30/19 05:33 08:50 Troponin I < 0.012 < 0.012 NT-Pro-B Natriuret Pep 1660 H Impressions: Chest/Abdomen CTA 08/30/19 00:00 IMPRESSION: 1. NORMAL CTA OF THE CHEST. NO PULMONARY EMBOLI. 2. MILD CHRONIC SCARRING. PREVIOUS GRANULOMATOUS DISEASE. NO ACUTE FINDINGS. Chest X-Ray 08/30/19 06:33 IMPRESSION: STABLE MILD CARDIOMEGALY. CHRONIC INTERSTITIAL CHANGES. NO APPARENT ACUTE FINDINGS. Chest CT 09/02/19 08:00 IMPRESSION: Trace right pleural fluid Dependent bibasilar atelectasis. Mild honeycomb appearance around the periphery of both upper lobes likely indicating mild pulmonary fibrosis Assessment and Plan - Diagnosis (1) Acute and chronic respiratory failure with hypoxia Is this a current diagnosis for this admission?: Yes Plan: Patient occasionally noted to desat into the 80s initially on admission but has been maintaining proper SPO2 levels since even on room air Ambulatory pulse ox was unable to be performed as patient had significant trouble ambulating This is likely secondary to chronic fibrotic lung disease (2) Severe pulmonary arterial systolic hypertension Is this a current diagnosis for this admission?: Yes Plan: Echocardiogram shows RVSP of 61-66 with normal LV systolic function. It is possible that Patient might be having some component of chronic right ventricular systolic failure from her chronic lung disease but no need for diuresis. Cardiology following. Therapy targeted towards evaluation and treatment of lung disease No evidence of pulmonary venous hypertension from left ventricular failure High-res CT showing honeycombing with evidence of mild pulmonary fibrosis MJ was negative Findings of pulmonary fibrosis, is unlikely the patient will benefit from steroids. Mainstay of therapy involves oxygen for hypoxia, and the potential need for vasoreactivity assessment via RHC to see if pulmonary arterial hypertension benefit from vasodilators. Awaiting full PFTs to assess for possible restrictive features Dr. Aguilera consulted for evaluation of pulmonary hypertension and potential need for RHC (3) Chronic interstitial lung disease Is this a current diagnosis for this admission?: Yes Plan: Plan as listed in problem #2 (4) Hyponatremia with decreased serum osmolality Is this a current diagnosis for this admission?: Yes Plan: No significant changes made to patient's medication regimen. Serum osmolarity is low but urine sodium and urine osmolarity are excessively high for patient's degree of hyponatremia raising potential concern for SIADH. May be a component of hypervolemia from pulmonary arterial hypertension. Either way, patient will ultimately benefit from fluid restriction 1500 cc per 24 hours. If no improvement, will try sodium chloride tablets tomorrow (5) Weakness Is this a current diagnosis for this admission?: Yes Plan: Denies any focal neurological symptoms. PT/OT and social work/senior buyer planner involved. Patient will need rehab. (6) Hypertension Qualifiers: Hypertension type: essential hypertension Qualified Code(s): I10 - Essential (primary) hypertension Is this a current diagnosis for this admission?: Yes Plan: Continue antihypertensives (7) CAD (coronary artery disease) Qualifiers: Coronary Disease-Associated Artery/Lesion type: bypass graft, autologous elinor ry Associated angina: without angina Qualified Code(s): I25.810 - Atherosclerosis of coronary artery bypass graft(s) without angina pectoris Is this a current diagnosis for this admission?: Yes Plan: Denies any anginal symptoms. Troponins negative. EKG no acute changes. Antiplatelets, statins, beta-blockers, LISA. Outpatient PCP follow-up. - Time Time Spent with patient: Less than 15 minutes
[2019-09-02] MEDS ORDERED: SODIUM CHLORIDE 1 GM TABLET PO ONE (16:19)
[2019-09-02] MEDS: PRAMIPEXOLE DI-HCL 0.25 MG TABLET PO SCH (17:57)
[2019-09-02] MEDS: ISOSORBIDE MONONITRATE 60 MG TAB.ER.24H PO SCH (17:57)
--- NOTE | 2019-09-02 18:35 | Progress Note ---
Provider Note Provider Note: CARDIOLOGY PROGRESS NOTE by Dr. Mary Eugene on 09/02/2019. Objective: The patient still complains of generalized fatigue and weakness and is unable to walk. She is not able to walk even with the help of physical therapy. She denies any chest pain discomfort. There is no shortness of breath. There is no PND orthopnea. The patient continues to be in atrial fibrillation. There is no bleeding on anticoagulation. There is no TIA CVA symptoms. PHYSICAL EXAMINATION: The patient is moderately obese. In no acute distress Selected Entries 09/02/19 15:01 Temperature 99.1 F Temperature Oral Source Pulse Rate 64 Respiratory 18 Rate Blood Pressure 100/43 L Blood Pressure 62 Mean BP Location Left Arm BP Position Supine O2 Sat by Pulse 94 Oximetry Oxygen Flow 2.00 Rate Oxygen Delivery Nasal Cannula Method Head is atraumatic. Normocephalic. EYES: Pupils are equal round regular reactive light accommodation. Extraocular movements are normal. There is no conjunctival pallor. There is no scleral icterus. EARS: Tympanic membranes are intact external auditory canals are clear. NOSE: There is no deviated nasal septum. There is no inflammation of the nasal mucosa mucous membrane. MOUTH: Mucous membranes of mouth are moist. Tongue is moist there is no ulcers. There is no bleeding of the gums. THROAT: There is no redness of the oropharynx. There is no exudates. SKIN: There is no skin lesions. There is no skin rashes. There is no petechia or ecchymosis. NECK: Supple. There is JVD present. Carotids are equal there is no carotid bruits. There is no lymphadenopathy. There is no goiter. There is no accessory muscle respiration use. TRACHEA: Central. LUNGS: The patient is dry leathery rales bibasilar suggestive of interstitial fibrosis. No evidence of left heart failure. HEART: S1-S2 is heard. There is no S3 gallop. There is no S4 gallop. Systolic murmur left sternal border and the apex there is no rub. ABDOMEN: Is soft there is no paraspinal megaly. Bowel sounds are well heard. EXTREMITIES: Femorals are dimi nished. There is no femoral bruits. Leg pulses are diminished. There is 1+ pedal edema bilaterally. There is no DVT or cellulitis. There is no calf tenderness. There is no cyanosis or clubbing. UAT TESTER: The patient is conscious awake alert oriented x3 with no focal deficits. PSYCHIATRIC: The patient judgment insight are intact her affect is normal. Labs- All tests 24 hr 09/02/19 09/02/19 09/02/19 06:16 06:16 09:16 Sodium 127.5 L Potassium 4.7 Chloride 94 L Carbon Dioxide 30 Anion Gap 4 L BUN 24 H Creatinine 1.03 Est GFR ( Amer) > 60 Est GFR (MDRD) Non-Af 51 L Glucose 86 Serum Osmolality 267 L Calcium 7.1 L Urine Osmolality 519 Urine Sodium 150 H 09/02/19 21:27 Sodium 126.8 L Potassium 4.8 Chloride 94 L Carbon Dioxide 28 Anion Gap 5 BUN 23 H Creatinine 0.95 Est GFR ( Amer) > 60 Est GFR (MDRD) Non-Af 56 L Glucose 100 Serum Osmolality Calcium 7.3 L Urine Osmolality Urine Sodium Chest/Abdomen CTA 08/30/19 00:00 IMPRESSION: 1. NORMAL CTA OF THE CHEST. NO PULMONARY EMBOLI. 2. MILD CHRONIC SCARRING. PREVIOUS GRANULOMATOUS DISEASE. NO ACUTE FINDINGS. Chest X-Ray 08/30/19 06:33 IMPRESSION: STABLE MILD CARDIOMEGALY. CHRONIC INTERSTITIAL CHANGES. NO APPARENT ACUTE FINDINGS. Chest CT 09/02/19 08:00 IMPRESSION: Trace right pleural fluid Dependent bibasilar atelectasis. Mild honeycomb appearance around the periphery of both upper lobes likely indicating mild pulmonary fibrosis IMPRESSION/RECOMMENDATION: 1. 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 No evidence of left heart failure. Hence would not treat aggressively with diuretics. 2. Severe pulmonary hypertension. Note that the patient sed rate and CRP are elevated. The patient's complement, DNA and MJ are all negative, and hence no evidence of collagen vascular disease. We will repeat the patient's CT of the chest high-resolution without contrast. Would recommend treating the patient with a centimeters or ARB. 3. Interstitial lung disease. The patient is CTA is got chronic interstitial fibrotic changes. Patient's collagen vascular work-up is negative. Since there is no evidence of infection consider starting the patient on steroids. High- resolution CT of the chest without contrast shows usual interstitial fibrosis 4. Coronary artery disease. History of old myocardial infarction ,history of coronary artery bypass graft surgery. No anginal symptoms. No evidence of RI this admission. 5. Hypertension. Blood pressure appears to be stable. 6. Mild renal insufficiency. Note that the patient's albumin is 2.8. There is no proteinuria. 7. Hypokalemia: Resolved. Hyponatremia: Recommend restrict free fluids. Recommend pulmonary consult. Medications reviewed. Medical regimen and management plan discussed with attending physician. Medical decision making is of moderate to high complexity. 40 minutes spent as patient more than 50% of time spent in direct patient care. We will see if we can stop medications that potentially could cause muscle weakness. We will check the patient's CPK and if this is elevated we will get a serum aldolase.
[2019-09-02 21:58] LABS: ANION GAP 5 (5-19); BLOOD UREA NITROGEN 23 mg/dL (7-20); CALCIUM 7.3 mg/dL (8.4-10.2); CARBON DIOXIDE 28 mmol/L (22-30); CHLORIDE 94 mmol/L (98-107); GLUCOSE 100 mg/dL (75-110); POTASSIUM 4.8 mmol/L (3.6-5.0)
[2019-09-02] MEDS ORDERED: SODIUM CHLORIDE 1 GM TABLET PO SCH (22:45)
[2019-09-03] MEDS: SODIUM CHLORIDE 1 GM TABLET PO SCH ×5 (00:15→23:15)
[2019-09-03 02:54] LABS: APPEARANCE,URINE SLIGHTLY-CLOUDY; BILIRUBIN,URINE NEGATIVE (NEGATIVE); COLOR,URINE YELLOW; GLUCOSE, URINE NEGATIVE (NEGATIVE); KETONES,URINE NEGATIVE (NEGATIVE); LEUKOCYTE ESTERASE,URINE SMALL (NEGATIVE); NITRITE,URINE POSITIVE (NEGATIVE); PROTEIN,URINE NEGATIVE (NEGATIVE); URINE SPECIFIC GRAVITY 1.018; UROBILINOGEN,URINE NEGATIVE mg/dL (<2.0)
[2019-09-03 07:08] LABS: ANION GAP 7 (5-19); BLOOD UREA NITROGEN 23 mg/dL (7-20); CALCIUM 7.5 mg/dL (8.4-10.2); CARBON DIOXIDE 29 mmol/L (22-30); CHLORIDE 92 mmol/L (98-107); GLUCOSE 86 mg/dL (75-110); POTASSIUM 4.9 mmol/L (3.6-5.0)
[2019-09-03] MEDS: TRAMADOL HCL 50 MG TABLET PO SCH ×2 (09:44→21:30)
[2019-09-03] MEDS: MAGNESIUM OXIDE 400 MG TABLET PO SCH (09:44)
[2019-09-03] MEDS: LISINOPRIL 5 MG TABLET PO SCH ×2 (09:44→21:30)
[2019-09-03] MEDS: ASPIRIN 81 MG TABLET, ENT COATED PO SCH (09:44)
[2019-09-03] MEDS: DOCUSATE SODIUM 100 MG CAPSULE PO SCH ×2 (09:45→17:16)
[2019-09-03] MEDS: ASCORBIC ACID 500 MG TABLET PO SCH ×2 (09:45→17:20)
[2019-09-03] MEDS: ENOXAPARIN SODIUM INJ 40 MG/0.4 ML DISP.SYRIN SUBCUT SCH (09:45)
[2019-09-03] MEDS: CYCLOSPORINE 0.05% OPH EMULSIO 0.4 ML DROPERETTE OU SCH ×2 (09:46→17:21)
--- NOTE | 2019-09-03 10:50 | PDOC PROGRESS REPORT ---
Subjective Progress Note for:: 09/03/19 Subjective:: Patient feels well today. Has not ambulated much. Agreeable for rehab. Denies shortness of breath or chest pain. Reason For Visit: SEVERE PULMONARY HYPERTENSION Physical Exam Vital Signs: Temp Pulse Resp BP Pulse Ox 99.9 F 68 18 108/58 L 93 09/03/19 08:03 09/03/19 08:03 09/03/19 08:03 09/03/19 08:03 09/03/19 08:03 Intake & Output 09/02/19 09/03/19 09/04/19 06:59 06:59 06:59 Intake Total 1960 720 Output Total 1000 900 Balance 960 -180 Weight 88.6 kg 85 kg General appearance: PRESENT: no acute distress, cooperative Neck exam: ABSENT: JVD Respiratory exam: PRESENT: crackles - Fine crackles, symmetrical, unlabored. ABSENT: tachypnea, wheezes Cardiovascular exam: PRESENT: RRR, +S1, +S2, systolic murmur. ABSENT: tachyc ardia GI/Abdominal exam: PRESENT: normal bowel sounds, soft. ABSENT: rebound, rigid, tenderness Neurological exam: PRESENT: alert, awake, oriented to person, oriented to place, oriented to time Results Laboratory Results: 08/31/19 05:38 09/03/19 05:55 09/02/19 09/03/19 09/03/19 21:27 02:40 05:55 Sodium 126.8 L 127.7 L Potassium 4.8 4.9 Chloride 94 L 92 L Carbon Dioxide 28 29 Anion Gap 5 7 BUN 23 H 23 H Creatinine 0.95 1.05 Est GFR ( Amer) > 60 > 60 Glucose 100 86 Calcium 7.3 L 7.5 L Urine Color YELLOW Urine Appearance SLIGHTLY-CLOUDY Urine pH 6.0 Ur Specific [place] 1.018 Urine Protein NEGATIVE Urine Glucose (UA) NEGATIVE Urine Ketones NEGATIVE Urine Blood NEGATIVE Urine Nitrite POSITIVE H Ur Leukocyte Esterase SMALL H Urine WBC (Auto) 18 Urine RBC (Auto) 1 08/30/19 08/30/19 09/03/19 05:33 08:50 05:55 Troponin I < 0.012 < 0.012 NT-Pro-B Natriuret Pep 1660 H 1740 H Impressions: Chest/Abdomen CTA 08/30/19 00:00 IMPRESSION: 1. NORMAL CTA OF THE CHEST. NO PULMONARY EMBOLI. 2. MILD CHRONIC SCARRING. PREVIOUS GRANULOMATOUS DISEASE. NO ACUTE FINDINGS. Chest X-Ray 08/30/19 06:33 IMPRESSION: STABLE MILD CARDIOMEGALY. CHRONIC INTERSTITIAL CHANGES. NO APPARENT ACUTE FINDINGS. Chest CT 09/02/19 08:00 IMPRESSION: Trace right pleural fluid Dependent bibasilar atelectasis. Mild honeycomb appearance around the periphery of both upper lobes likely indicating mild pulmonary fibrosis Assessment and Plan - Diagnosis (1) Acute and chronic respiratory failure with hypoxia Is this a current diagnosis for this admission?: Yes Plan: Initially, patient was noted to occasionally desat into the 80son admission but has been maintaining proper SPO2 levels since then on room air Ambulatory pulse ox was unable to be performed as patient had significant trouble ambulating for long distances This is likely secondary to chronic fibrotic lung disease (2) Severe pulmonary arterial systolic hypertension Is this a current diagnosis for this admission?: Yes Plan: Echocardiogram shows RVSP of 61-66 with normal LV systolic function. It is possible that Patient might be having some component of chronic right ventricular systolic failure from her chronic lung disease but no need for diuresis. Cardiology following. Therapy targeted towards evaluation and treatment of lung disease No evidence of pulmonary venous hypertension from left ventricular failure High-res CT showing honeycombing with evidence of mild pulmonary fibrosis MJ was negative Findings of pulmonary fibrosis, is unlikely the patient will benefit from steroids. Mainstay of therapy involves oxygen for hypoxia, and the potential need for vasoreactivity assessment via RHC to see if pulmonary arterial hypertension benefit from sildenafil. I have discussed with Dr. Aguilera and patient has been set up to see him in the office on Friday at 2 PM for PFTs to assess for any functional significance of the fibrosis and to schedule patient for right heart cath. (3) Chronic interstitial lung disease Is this a current diagnosis for this admission?: Yes Plan: Plan as listed in problem #2 (4) Hyponatremia with decreased serum osmolality Is this a current diagnosis for this admission?: Yes Plan: Urine sodium and urine osmolarity are excessively high for patient's degree of hyponatremia raising potential concern for SIADH. May be a component of hypervolemia from pulmonary arterial hypertension. Either way, patient will ultimately benefit from fluid restriction. Have added sodium chloride tablets. Ranexa, Pepcid discontinued. Repeat CBC at 2 PM. If no significant improvement in hyponatremia with 1200 cc fluid restriction and salt tablets, I will complement with Lasix. (5) Weakness Is this a current diagnosis for this admission?: Yes Plan: Denies any focal neurological symptoms. PT/OT and social work/category planner involved. Patient will be discharged to rehab (6) Hypertension Qualifiers: Hypertension type: essential hypertension Qualified Code(s): I10 - Essential (primary) hypertension Is this a current diagnosis for this admission?: Yes Plan: Continue antihypertensives (7) CAD (coronary artery disease) Qualifiers: Coronary Disease-Associated Artery/Lesion type: bypass graft, autologous artery Associated angina: without angina Qualified Code(s): I25.810 - Atherosclerosis of coronary artery bypass graft(s) without angina pectoris Is this a current diagnosis for this admission?: Yes Plan: Denies any anginal symptoms. Troponins negative. EKG no acute changes. Antiplatelets, statins, beta-blockers, LISA. Outpatient PCP follow-up. - Time Time Spent with patient: 15-24 minutes
[2019-09-03] MEDS: FERROUS SULFATE 325 MG TABLET PO SCH (15:37)
[2019-09-03 16:11] LABS: ALBUMIN 2.4 g/dL (3.5-5.0); ALKALINE PHOSPHATASE 62 U/L (38-126); ANION GAP 7 (5-19); ASPARTATE AMINO TRANSFERASE 15 U/L (14-36); BILIRUBIN,DIRECT 0.2 mg/dL (0.0-0.4); BILIRUBIN,TOTAL 0.5 mg/dL (0.2-1.3); BLOOD UREA NITROGEN 23 mg/dL (7-20); CALCIUM 7.4 mg/dL (8.4-10.2); CARBON DIOXIDE 28 mmol/L (22-30); CHLORIDE 93 mmol/L (98-107); GLUCOSE 107 mg/dL (75-110); TOTAL PROTEIN 4.9 g/dL (6.3-8.2)
[2019-09-03] MEDS: PRAMIPEXOLE DI-HCL 0.25 MG TABLET PO SCH (17:20)
[2019-09-03] MEDS: ISOSORBIDE MONONITRATE 60 MG TAB.ER.24H PO SCH (17:20)
[2019-09-03] MEDS ORDERED: FUROSEMIDE INJ/PF 40 MG/4 ML SDV IV ONE (18:30)
--- NOTE | 2019-09-03 21:14 | Progress Note ---
Provider Note Provider Note: CARDIOLOGY PROGRESS NOTE by Dr. Mary Riley on 09/03/2019. SUBJECTIVE: The patient continues to complain of generalized fatigue and weakness. She denies any shortness of breath. There is no chest pain. There is no PND orthopnea. There is no leg edema at present. There is no TIA CVA symptoms. There is no arrhythmia seen on the monitor. PHYSICAL EXAMINATION: The patient is mild to moderately obese. In no acute distress Selected Entries 09/03/19 15:34 Temperature 98.7 F Temperature Oral Source Pulse Rate 72 Respiratory 16 Rate Blood Pressure 113/63 Blood Pressure 79 Mean BP Location Left Arm BP Position Supine O2 Sat by Pulse 93 Oximetry Oxygen Delivery Room Air Method Head is atraumatic. Normocephalic. EYES: Pupils are equal round regular reactive light accommodation. Extraocular movements are normal. There is no conjunctival pallor. There is no scleral icterus. EARS: Tympanic membranes are intact external auditory canals are clear. NOSE: There is no deviated nasal septum. There is no inflammation of the nasal mucosa mucous membrane. MOUTH: Mucous membranes of mouth are moist. Tongue is moist there is no ulcers. There is no bleeding of the gums. THROAT: There is no redness of the oropharynx. There is no exudates. SKIN: There is no skin lesions. There is no skin rashes. There is no petechia or ecchymosis. NECK: Supple. There is JVD present. Carotids are equal there is no carotid bruits. There is no lymphadenopathy. There is no goiter. There is no accessory muscle respiration use. TRACHEA: Central. LUNGS: The patient is dry leathery rales bibasilar suggestive of interstitial fibrosis. No evidence of left heart failure. HEART: S1-S2 is heard. There is no S3 gallop. There is no S4 gallop. Systolic murmur left sternal border and the apex there is no rub. ABDOMEN: Is soft there is no paraspinal megaly. Bowel sounds are well heard. EXTREMITIES: Femorals are diminished. There is no femoral bruits. Leg pulses are diminished. There is 1+ pedal edema bilaterally. There is no DVT or cellulitis. There is no calf tenderness. There is no cyanosis or clubbing. CLIENT SERVICE AND CONSULTING MANAGER: The patient is conscious awake alert oriented x3 with no focal deficits. PSYCHIATRIC: The patient judgment insight are intact her affect is normal. Labs- All tests 24 hr 09/03/19 09/03/19 09/03/19 02:40 05:55 05:55 Sodium 127.7 L Potassium 4.9 Chloride 92 L Carbon Dioxide 29 Anion Gap 7 BUN 23 H Creatinine 1.05 Est GFR ( Amer) > 60 Est GFR (MDRD) Non-Af 50 L Glucose 86 Calcium 7.5 L Total Bilirubin Direct Bilirubin Neonat Total Bilirubin Neonat Direct Bilirubin Neonat Indirect Bili AST ALT Alkaline Phosphatase NT-Pro-B Natriuret Pep 1740 H Total Protein Albumin Cortisol AM Sample Urine Color YELLOW Urine Appearance SLIGHTLY-CLOUDY Urine pH 6.0 Ur Specific [place] 1.018 Urine Protein NEGATIVE Urine Glucose (UA) NEGATIVE Urine Ketones NEGATIVE Urine Blood NEGATIVE Urine Nitrite POSITIVE H Urine Bilirubin NEGATIVE Urine Urobilinogen NEGATIVE Ur Leukocyte Esterase SMALL H Urine WBC (Auto) 18 Urine RBC (Auto) 1 Urine Bacteria (Auto) 3+ Squamous Epi Cells Auto <1 Urine Mucus (Auto) RARE Urine Ascorbic Acid 40 H 09/03/19 09/03/19 05:55 15:11 Sodium 127.6 L Potassium 5.0 Chloride 93 L Carbon Dioxide 28 Anion Gap 7 BUN 23 H Creatinine 0.93 Est GFR ( Amer) > 60 Est GFR (MDRD) Non-Af 57 L Glucose 107 Calcium 7.4 L Total Bilirubin 0.5 Direct Bilirubin 0.2 Neonat Total Bilirubin Not Reportable Neonat Direct Bilirubin Not Reportable Neonat Indirect Bili Not Reportable AST 15 ALT 8 Alkaline Phosphatase 62 NT-Pro-B Natriuret Pep Total Protein 4.9 L Albumin 2.4 L Cortisol AM Sample 20.20 Urine Color Urine Appearance Urine pH Ur Specific [place] Urine Protein Urine Glucose (UA) Urine Ketones Urine Blood Urine Nitrite Urine Bilirubin Urine Urobilinogen Ur Leukocyte Esterase Urine WBC (Auto) Urine RBC (Auto) Urine Bacteria (Auto) Squamous Epi Cells Auto Urine Mucus (Auto) Urine Ascorbic Acid Chest/Abdomen CTA 08/30/19 00:00 IMPRESSION: 1. NORMAL CTA OF THE CHEST. NO PULMONARY EMBOLI. 2. MILD CHRONIC SCARRING. PREVIOUS GRANULOMATOUS DISEASE. NO ACUTE FINDINGS. Chest X-Ray 08/30/19 06:33 IMPRESSION: STABLE MILD CARDIOMEGALY. CHRONIC INTERSTITIAL CHANGES. NO APPARENT ACUTE FINDINGS. Chest CT 09/02/19 08:00 IMPRESSION: Trace right pleural fluid Dependent bibasilar atelectasis. Mild honeycomb appearance around the periphery of both upper lobes likely indicating mild pulmonary fibrosis IMPRESSION/RECOMMENDATION: 1. 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 No evidence of left heart failure. Hence would not treat aggressively with diuretics. 2. Severe pulmonary hypertension. Note that the patient sed rate and CRP are elevated. The patient's complement, DNA and MJ are all negative, and hence no evidence of collagen vascular disease. We will repeat the patient's CT of the chest high-resolution without contrast. Would recommend treating the patient with a centimeters or ARB. 3. Interstitial lung disease. The patient is CTA is got chronic interstitial fibrotic changes. Patient's collagen vascular work-up is negative. Since there is no evidence of infection consider starting the patient on steroids. High- resolution CT of the chest without contrast shows usual interstitial fibrosis 4. Coronary artery disease. History of old myocardial infarction ,history of coronary artery bypass graft surgery. No anginal symptoms. No evidence of [place] this admission. 5. Hypertension. Blood pressure appears to be stable. 6. Mild renal insufficiency. Note that the patient's albumin is 2.8. There is no proteinuria. 7. Hypokalemia: Resolved. Hyponatremia: Recommend restrict free fluids. Medications reviewed. Medical regimen and management plan discussed with attending physician. 40 minutes spent on this patient more than 50% time spent in direct patient care. Medical decision making is of moderate complexity.
[2019-09-04] MEDS: SODIUM CHLORIDE 1 GM TABLET PO SCH ×2 (05:27→12:42)
[2019-09-04 08:54] LABS: ANION GAP 6 (5-19); BLOOD UREA NITROGEN 21 mg/dL (7-20); CALCIUM 7.3 mg/dL (8.4-10.2); CARBON DIOXIDE 28 mmol/L (22-30); CHLORIDE 93 mmol/L (98-107); GLUCOSE 89 mg/dL (75-110); POTASSIUM 4.6 mmol/L (3.6-5.0)
[2019-09-04] MEDS: CYCLOSPORINE 0.05% OPH EMULSIO 0.4 ML DROPERETTE OU SCH (09:34)
[2019-09-04] MEDS: ASPIRIN 81 MG TABLET, ENT COATED PO SCH (09:34)
[2019-09-04] MEDS: LISINOPRIL 5 MG TABLET PO SCH (09:34)
[2019-09-04] MEDS: ASCORBIC ACID 500 MG TABLET PO SCH (09:34)
[2019-09-04] MEDS: MAGNESIUM OXIDE 400 MG TABLET PO SCH (09:34)
[2019-09-04] MEDS: ENOXAPARIN SODIUM INJ 40 MG/0.4 ML DISP.SYRIN SUBCUT SCH (09:34)
[2019-09-04] MEDS: TRAMADOL HCL 50 MG TABLET PO SCH (09:34)
[2019-09-04] MEDS: DOCUSATE SODIUM 100 MG CAPSULE PO SCH (09:43)
--- NOTE | 2019-09-04 12:23 | PDOC TRANSFER SUMMARY ---
Impression - Admit/DC Date/PCP Admission Date/Primary Care Provider: 09/01/19 13:18 ETHAN MCMAHON MD Discharge Date: 09/04/19 - Discharge Diagnosis (1) Acute and chronic respiratory failure with hypoxia Is this a current diagnosis for this admission?: Yes (2) Pulmonary interstitial fibrosis Is this a current diagnosis for this admission?: Yes (3) Severe pulmonary arterial systolic hypertension Is this a current diagnosis for this admission?: Yes (4) Hyponatremia with decreased serum osmolality Is this a current diagnosis for this admission?: Yes (5) Weakness Is this a current diagnosis for this admission?: Yes (6) Hypertension Is this a current diagnosis for this admission?: Yes (7) CAD (coronary artery disease) Is this a current diagnosis for this admission?: Yes (8) Iron deficiency anemia Is this a current diagnosis for this admission?: Yes - Assessment Summary: Patient was initially admitted to the hospital with concern for weakness which patient has been evaluated several times for. On presentation there was findings of interstitial infiltrates raising concern for pulmonary edema. As a result patient was admitted for treatment of possible congestive heart failure and received some doses of Lasix, fluid restriction. Echocardiogram was performed which showed elevated right ventricular systolic pressure of 61 to 66 mmHg with normal left ventricular function and normal right ventricular systolic function. This raise concern for severe pulmonary hypertension. However, patient was not experiencing any shortness of breath and was comfortable in terms of her respiratory status though occasionally reported to have desatted when ambulating into the 80s. For the most part of patient's stay, patient has not required oxygen supplementation but also has not been ambulating much. CTA of the chest was done on admission which showed no evidence of pulmonary embolism but did diamond picker pulmonary fibrosis. High-res CT scan confirmed honeycombing in the lungs and other findings diagnostic of interstitial pulmonary fibrosis. Of note IPF is not reversible. Pulmonary function test showed some moderate restrictive and obstructive pattern. Patient's pulmonary hypertension is likely secondary to IPF and not congestive heart failure. Patient was evaluated by cardiology who recommended stopping diuretics given the congestive heart failure was not the accurate diagnosis in this situation. Patient has been set up follow-up with Dr. Aguilera [pulmonology] on Friday for further evaluation. Patient is currently stable at this time and ready for discharge. Provide oxygen supplementation via nasal cannula if needed on ambulation. Detailed plan (1) Acute and chronic respiratory failure with hypoxia Is this a current diagnosis for this admission?: Yes Plan: Initially, patient was noted to occasionally desat into the 80s on admission but has been maintaining proper SPO2 levels in the 90s since then on room air Ambulatory pulse ox was unable to be performed as patient had significant trouble ambulating for long distances This is likely secondary to Pulmonary fibrosis which is not reversible. Oxygen supplementation as needed via nasal cannula (2) Severe pulmonary arterial systolic hypertension Is this a current diagnosis for this admission?: Yes Plan: Echocardiogram shows RVSP of 61-66 with normal LV systolic function. It is possible that Patient might be having some component of chronic right ventricular systolic failure from her chronic lung disease but no need for diuresis especially as there is no evidence of left heart dysfunction. Patient was evaluated by cardiology during patient's hospitalization. Therapy targeted towards evaluation and treatment of lung disease High-res CT showing honeycombing with evidence of mild pulmonary fibrosis MJ was negative Pulmonary function test was done while in the hospital which showed evidence of moderate restrictive lung disease with moderate obstructive pattern as well. DLCO was significantly reduced. Findings are consistent with patient's diagnosis of pulmonary fibrosis with some underlying obstructive lung disease Mainstay of therapy involves oxygen for hypoxia, and the potential need for vasoreactivity assessment via right heart catheterization to see if pulmonary arterial hypertension will benefit from sildenafil. I have discussed the case with our house wrecker Dr. Aguilera and patient has been set up to see him in the office on Friday at 2:30PM during which time patient will also be scheduled for right heart catheterization. (3) Pulmonary Fibrosis Is this a current diagnosis for this admission?: Yes Plan: Plan as listed in problem #2 (4) Hyponatremia with decreased serum osmolality Is this a current diagnosis for this admission?: Yes Plan: Urine sodium and urine osmolarity are excessively high for patient's degree of hyponatremia raising potential concern for SIADH. Sodium has remained stable at 127 for the past 2-1/2 days 1200 cc daily fluid restriction and patient has been started on sodium chloride tablets Pramipexole and Ranexa were discontinued because of this. Repeat BMP in 1 week and patient will need to follow-up with her primary care provider. (5) Weakness Is this a current diagnosis for this admission?: Yes Plan: Denies any focal neurological symptoms. Patient will need intense physical therapy to help with her deconditioning. (6) Hypertension Qualifiers: Hypertension type: essential hypertension Qualified Code(s): I10 - Essential (primary) hypertension Is this a current diagnosis for this admission?: Yes Plan: Continue antihypertensives (7) CAD (coronary artery disease) Qualifiers: Coronary Disease-Associated Artery/Lesion type: bypass graft, autologous artery Associated angina: without angina Qualified Code(s): I25.810 - Atherosclerosis of coronary artery bypass graft(s) without angina pectoris Is this a current diagnosis for this admission?: Yes Plan: Denies any anginal symptoms. Troponins negative. EKG no acute changes. Antiplatelets, statins, beta-blockers, LISA. Outpatient PCP follow-up. (8) Chronic iron deficiency anemia Patient is currently at baseline hemoglobin level of 8.4 Continue iron supplementation Continue stool softeners given her hemorrhoids - Additional Information Resuscitation Status: Full Code Discharge Diet: Regular Discharge Activity: Activity As Tolerated, Balance Activity w/Rest Referrals: DANIELA AGUILERA MD [ACTIVE STAFF] - 09/06/19 2:30 pm (Please bring all discharge paperwork, current medication list, and insurance card(s) to the appointment. The appointment is acutally at 3:00pm, but the office asks that you please arrive at 2:30pm to complete paperwork. Happy Holidays!) ETHAN MCMAHON MD [Primary Care Provider] - 09/10/19 2:00 pm Home Medications: Ascorbic Acid [Vitamin C 500 mg Tablet] 500 mg PO BID 08/11/19 Cyanocobalamin (Vitamin B-12) [Vitamin B-12] 1,000 mcg PO DAILY 08/11/19 Cyclosporine 0.05% Oph Emulsio [Restasis 0.05% Oph Emulsion Pf 0.4 ml] 1 drop OU BID 08/11/19 Docusate Sodium [Colace] 100 mg PO BID 08/11/19 Isosorbide Mononitrate [Isosorbide Mononitrate ER] 120 mg PO QPM 08/11/19 Magnesium 250 mg PO DAILY 08/11/19 Stanley-3 Fatty Acids/Fish Oil [Stanley 3 Fish Oil Softgel] 1 each PO BID 08/11/19 Tramadol HCl [Ultram 50 mg Tablet] 50 mg PO Q12 08/11/19 Vit A/Vit C/Vit E/Zinc/Copper [Preservision Areds Softgel] 1 each PO DAILY 08/11/19 Aspirin [Ecotrin 81 mg EC Tablet] 81 mg PO DAILY 08/23/19 Cranberry Conc/C/Bacill Coag [AZO Cranberry Tablet] 1 each PO DAILY 08/23/19 Ferrous Sulfate [Boogie-Time] 325 mg PO Q48H #30 tablet 08/23/19 Ubidecarenone/Vit E Acet [Co Q-10 100 mg Softgel] 1 each PO DAILY 08/23/19 Enoxaparin Sodium [Lovenox Inj 40 mg/0.4 ml Disp.syrin] 40 mg SUBCUT DAILY disp.syrin 09/04/19 Ipratropium/Albuterol Sulfate [Duoneb 3 ml Ampul] 3 ml NEB [id number] PRN vial.neb 09/04/19 Lisinopril [Prinivil 5 mg Tablet] 5 mg PO Q12 tablet 09/04/19 Sodium Chloride [Sodium Chloride 1 gm Tablet] 1 gm PO BID tablet 09/04/19 History of Present Illiness History of Present Illness: SUNITA BALLESTEROS is a 84 year old female past medical history of CAD status post PCI x6 stents and CABG, chronic A. fib, hyperlipidemia, hypertension, chronic anemia due to GI bleed, presenting to ED with worsening bilateral lower extremity edema, generalized weakness, nausea and one episode of vomiting yesterday. Patient was recent hospital for acute GI bleed due to blood thinners for her A. fib RVR. Saying that she has not had any more melena or hematochezia and having normal bowel movements. She is also endorsing dyspnea on exertion, generalized weakness and worsening lower extremity edema below the knees. She is adherent with her medications but mentions that she drinks a lot of water as she was told her water was good for her. Endorses nausea and one episode of nonbloody vomiting yesterday however denies any dyspnea at rest, chest pain, fever, cough, lightheadedness, headache, focal weakness or numbness, abdominal pain, diarrhea, constipation or any urinary symptoms. Physical Exam Vital Signs: Temp Pulse Resp BP Pulse Ox 98.3 F 79 18 149/62 H 99 09/04/19 08:00 09/04/19 08:00 09/04/19 08:00 09/04/19 08:00 09/04/19 08:00 Intake & Output 09/03/19 09/04/19 09/05/19 06:59 06:59 06:59 Intake Total 720 726 Output Total 900 9811 Balance -180 -1249 Weight 85 kg 86 kg General appearance: PRESENT: no acute distress, cooperative Neck exam: ABSENT: JVD Respiratory exam: PRESENT: crackles - Fine crackles, symmetrical, unlabored. ABSENT: tachypnea, wheezes Cardiovascular exam: PRESENT: RRR, +S1, +S2, systolic murmur. ABSENT: tachycardia GI/Abdominal exam: PRESENT: normal bowel sounds, soft. ABSENT: rebound, rigid, tenderness Extremities exam: PRESENT: other - Bilateral nonpitting lower extremity edema Neurological exam: PRESENT: alert, awake, oriented to person, oriented to place, oriented to time, oriented to situation, other - Hard of hearing uses hearing aids Results Laboratory Results: WBC 4.0 10^3/uL (4.0-10.5) 08/31/19 05:38 RBC 2.80 10^6/uL (3.72-5.28) L 08/31/19 05:38 Hgb 8.4 g/dL (12.0-15.5) L 08/31/19 05:38 Hct 24.7 % (36.0-47.0) L 08/31/19 05:38 MCV 88 fl (80-97) 08/31/19 05:38 MCH 29.8 pg (27.0-33.4) 08/31/19 05:38 MCHC 33.9 g/dL (32.0-36.0) 08/31/19 05:38 RDW 14.5 % (11.5-14.0) H 08/31/19 05:38 Plt Count 209 10^3/uL (150-450) 08/31/19 05:38 Lymph % (Auto) 12.6 % (13-45) L 08/31/19 05:38 [place] % (Auto) 11.1 % (3-13) 08/31/19 05:38 Eos % (Auto) 3.0 % (0-6) 08/31/19 05:38 Baso % (Auto) 0.4 % (0-2) 08/31/19 05:38 Absolute Neuts (auto) 2.9 10^3/uL (1.7-8.2) 08/31/19 05:38 Absolute Lymphs (auto) 0.5 10^3/uL (0.5-4.7) 08/31/19 05:38 Absolute Monos (auto) 0.4 10^3/uL (0.1-1.4) 08/31/19 05:38 Absolute Eos (auto) 0.1 10^3/uL (0.0-0.6) 08/31/19 05:38 Absolute Basos (auto) 0.0 10^3/uL (0.0-0.2) 08/31/19 05:38 Seg Neutrophils % 72.9 % (42-78) 08/31/19 05:38 ESR 35 mm/hr (0-30) H 08/30/19 16:26 Carbonic Acid 1.25 mmol/L (1.05-1.35) 08/30/19 08:10 HCO3/H2CO3 Ratio 23:1 08/30/19 08:10 ABG pH 7.48 (7.35-7.45) H 08/30/19 08:10 ABG pCO2 41.6 mmHg (35-45) 08/30/19 08:10 ABG pO2 98.9 mmHg (80-100) 08/30/19 08:10 ABG HCO3 29.9 mmol/L (20-24) H 08/30/19 08:10 ABG Total CO2 31.2 mmol/L (21-25) H 08/30/19 08:10 ABG O2 Saturation 97.8 % (94-98) 08/30/19 08:10 ABG Base Excess 5.8 mmol/L 08/30/19 08:10 FiO2 28% 08/30/19 08:10 Sodium 127.4 mmol/L (137-145) L 09/04/19 06:09 Potassium 4.6 mmol/L (3.6-5.0) 09/04/19 06:09 Chloride 93 mmol/L (98-107) L 09/04/19 06:09 Carbon Dioxide 28 mmol/L (22-30) 09/04/19 06:09 Anion Gap 6 (5-19) 09/04/19 06:09 BUN 21 mg/dL (7-20) H 09/04/19 06:09 Creatinine 0.97 mg/dL (0.52-1.25) 09/04/19 06:09 Est GFR ( Amer) > 60 (>60) 09/04/19 06:09 Est GFR (MDRD) Non-Af 55 (>60) L 09/04/19 06:09 Glucose 89 mg/dL (75-110) 09/04/19 06:09 Serum Osmolality 267 mOsm/kg (275-301) L 09/02/19 06:16 Calcium 7.3 mg/dL (8.4-10.2) L 09/04/19 06:09 Magnesium 2.1 mg/dL (1.6-2.3) 08/31/19 05:38 Total Bilirubin 0.5 mg/dL (0.2-1.3) 09/03/19 15:11 Direct Bilirubin 0.2 mg/dL (0.0-0.4) 09/03/19 15:11 Neonat Total Bilirubin Not Reportable 09/03/19 15:11 Neonat Direct Bilirubin Not Reportable 09/03/19 15:11 Neonat Indirect Bili Not Reportable 09/03/19 15:11 AST 15 U/L (14-36) 09/03/19 15:11 ALT 8 U/L (<35) 09/03/19 15:11 Alkaline Phosphatase 62 U/L (38-126) 09/03/19 15:11 Creatine Kinase < 20 U/L (30-135) L 09/04/19 06:09 Troponin I < 0.012 ng/mL 08/30/19 08:50 C-Reactive Protein 64.7 mg/L (<10.0) H 08/30/19 16:26 NT-Pro-B Natriuret Pep 1740 pg/mL (<450) H 09/03/19 05:55 Total Protein 4.9 g/dL (6.3-8.2) L 09/03/19 15:11 Albumin 2.4 g/dL (3.5-5.0) L 09/03/19 15:11 TSH 2.15 uIU/mL (0.47-4.68) 08/31/19 05:38 Cortisol AM Sample 20.20 ug/dL (4.46-22.7) 09/03/19 05:55 Urine Color YELLOW 09/03/19 02:40 Urine Appearance SLIGHTLY-CLOUDY 09/03/19 02:40 Urine pH 6.0 (5.0-9.0) 09/03/19 02:40 Ur Specific [place] 1.018 09/03/19 02:40 Urine Protein NEGATIVE mg/dL (NEGATIVE) 09/03/19 02:40 Urine Glucose (UA) NEGATIVE mg/dL (NEGATIVE) 09/03/19 02:40 Urine Ketones NEGATIVE mg/dL (NEGATIVE) 09/03/19 02:40 Urine Blood NEGATIVE (NEGATIVE) 09/03/19 02:40 Urine Nitrite POSITIVE (NEGATIVE) H 09/03/19 02:40 Urine Bilirubin NEGATIVE (NEGATIVE) 09/03/19 02:40 Urine Urobilinogen NEGATIVE mg/dL (<2.0) 09/03/19 02:40 Ur Leukocyte Esterase SMALL (NEGATIVE) H 09/03/19 02:40 Urine WBC (Auto) 18 /HPF 09/03/19 02:40 Urine RBC (Auto) 1 /HPF 09/03/19 02:40 U Hyaline Cast (Auto) 1 /LPF 08/30/19 06:53 Urine Bacteria (Auto) 3+ /HPF 09/03/19 02:40 Squamous Epi Cells Auto <1 /HPF 09/03/19 02:40 Uric Acid Cryst (Auto) RARE /HPF 08/30/19 06:53 Urine Mucus (Auto) RARE /LPF 09/03/19 02:40 Urine Osmolality 519 mOsm/kg (300-900) 09/02/19 09:16 Urine Sodium 150 mmol/L (30-90) H 09/02/19 09:16 Urine Ascorbic Acid 40 (NEGATIVE) H 09/03/19 02:40 Rheumatoid Factor NEGATIVE (NEGATIVE) 08/31/19 05:38 MJ (Multiplex) Negative (Negative) 08/31/19 05:38 Double Strand DNA Ab 6 IU/mL (0-9) 08/31/19 05:38 Tot Complement (CH50) 48 U/mL ([id number]) 08/31/19 05:38 08/30/19 08/30/19 09/03/19 05:33 08:50 05:55 Troponin I < 0.012 < 0.012 NT-Pro-B Natriuret Pep 1660 H 1740 H Impressions: Chest/Abdomen CTA 08/30/19 00:00 IMPRESSION: 1. NORMAL CTA OF THE CHEST. NO PULMONARY EMBOLI. 2. MILD CHRONIC SCARRING. PREVIOUS GRANULOMATOUS DISEASE. NO ACUTE FINDINGS. Chest X-Ray 08/30/19 06:33 IMPRESSION: STABLE MILD CARDIOMEGALY. CHRONIC INTERSTITIAL CHANGES. NO APPARENT ACUTE FINDINGS. Chest CT 09/02/19 08:00 IMPRESSION: Trace right pleural fluid Dependent bibasilar atelectasis. Mild honeycomb appearance around the periphery of both upper lobes likely i ndicating mild pulmonary fibrosis Plan Time Spent: Less than 30 Minutes Stroke Is this a Stroke Patient?: No Acute Heart Failure - Is this a Heart Failure Patient?: No
[2019-09-04 12:40] VITALS: BP 127/49
--- NOTE | 2019-09-04 19:24 | Progress Note ---
Provider Note Provider Note: Cardiology PROGRESS NOTE by Dr. Mary Eugene on 09/04/2019. SUBJECTIVE: The patient denies any shortness of breath. Her O2 sats are good on room air. She denies any orthopnea or PND. There is trace leg edema. The patient has no chest pain or discomfort. She still complains of generalized weakness and inability to stand up. She most likely will need a skilled rehab facility. PHYSICAL EXAMINATION: The patient is moderately obese. In no acute distress. Selected Entries 09/04/19 12:00 Temperature 99.1 F Temperature Oral Source Pulse Rate 75 Respiratory 17 Rate Blood Pressure 127/49 H [Left Upper Arm ] Blood Pressure 75 Mean [Left Upper Arm] Blood Pressure Sitting Position [Left Upper Arm] O2 Sat by Pulse 95 Oximetry Oxygen Delivery Room Air Method ( includes room air) Head is atraumatic. Normocephalic. EYES: Pupils are equal round regular reactive light accommodation. Extraocular movements are normal. There is no conjunctival pallor. There is no scleral icterus. EARS: Tympanic membranes are intact external auditory canals are clear. NOSE: There is no deviated nasal septum. There is no inflammation of the nasal mucosa mucous membrane. MOUTH: Mucous membranes of mouth are moist. Tongue is moist there is no ulcers. There is no bleeding of the gums. THROAT: There is no redness of the oropharynx. There is no exudates. SKIN: There is no skin lesions. There is no skin rashes. There is no petechia or ecchymosis. NECK: Supple. There is JVD present. Carotids are equal there is no carotid bruits. There is no lymphadenopathy. There is no goiter. There is no accessory muscle respiration use. TRACHEA: Central. LUNGS: The patient is dry leathery rales bibasilar suggestive of interstitial fibrosis. No evidence of left heart failure. HEART: S1-S2 is heard. There is no S3 gallop. There is no S4 gallop. Systolic murmur left sternal border and the apex there is no rub. ABDOMEN: Is soft there is no paraspinal megaly. Bowel sounds are well heard. EXTREMITIES: Femorals are diminished. There is no femoral bruits. Leg pulses are diminished. There is 1+ pedal edema bilaterally. There is no DVT or cellulitis. There is no calf tenderness. There is no cyanosis or clubbing. QUALITY TECHNICIAN FIBERGLASS: The patient is conscious awake alert oriented x3 with no focal deficits. PSYCHIATRIC: The patient judgment insight are intact her affect is normal. Labs- All tests 24 hr 09/04/19 09/04/19 06:09 06:09 Sodium 127.4 L Potassium 4.6 Chloride 93 L Carbon Dioxide 28 Anion Gap 6 BUN 21 H Creatinine 0.97 Est GFR ( Amer) > 60 Est GFR (MDRD) Non-Af 55 L Glucose 89 Calcium 7.3 L Creatine Kinase < 20 L Chest/Abdomen CTA 08/30/19 00:00 IMPRESSION: 1. NORMAL CTA OF THE CHEST. NO PULMONARY EMBOLI. 2. MILD CHRONIC SCARRING. PREVIOUS GRANULOMATOUS DISEASE. NO ACUTE FINDINGS. Chest X-Ray 08/30/19 06:33 IMPRESSION: STABLE MILD CARDIOMEGALY. CHRONIC INTERSTITIAL CHANGES. NO APPARENT ACUTE FINDINGS. Chest CT 09/02/19 08:00 IMPRESSION: Trace right pleural fluid Dependent bibasilar atelectasis. Mild honeycomb appearance around the periphery of both upper lobes likely indicating mild pulmonary fibrosis IMPRESSION/RECOMMENDATION: 1. 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 No evidence of lef t heart failure. Hence would not treat aggressively with diuretics. 2. Severe pulmonary hypertension. Note that the patient sed rate and CRP are elevated. The patient's complement, DNA and MJ are all negative, and hence no evidence of collagen vascular disease. We will repeat the patient's CT of the chest high-resolution without contrast. Would recommend treating the patient with a centimeters or ARB. 3. Interstitial lung disease. The patient is CTA is got chronic interstitial fibrotic changes. Patient's collagen vascular work-up is negative. Since there is no evidence of infection consider starting the patient on steroids. High- resolution CT of the chest without contrast shows usual interstitial fibrosis 4. Coronary artery disease. History of old myocardial infarction ,history of coronary artery bypass graft surgery. No anginal symptoms. No evidence of NM this admission. 5. Hypertension. Blood pressure appears to be stable. 6. Mild renal insufficiency. Note that the patient's albumin is 2.8. There is no proteinuria. 7. Hypokalemia: Resolved. Hyponatremia: Recommend restrict free fluids. Medications reviewed. Medical regimen and management plan discussed with attending physician. 40 minutes spent on this patient more than 50% time spent in direct patient care. Medical decision making is of moderate complexity. Will follow.
--- NOTE | 2019-09-06 17:44 | Pulmonary Function Test ---
Pulmonary Function Test Date of Procedure:: 09/03/19 INDICATION:: Dyspnea Referring Provider: Dr. Corbett [employer] Library Clerk: Radha Vitale WAREHOUSE INVENTORY CLERK - Report Spirometry: Spirometry: pre-FVC: 61% 1.36 L post-FVC: 1.25 L 56% pre-FEV:1 0.91 L 58% post-FEV1: 0.87 L 56% pre-FEV1/FVC %: 67 post-FEV1/FVC%: 70 predicted: 81 [id number]%: 0.44 L 37% [id number]%: 0.50 L 42% Lung Volume: Total lung capacity: 2.71 L 63% Vital capacity: 1.38 L 62% Inspiratory capacity: 1.01 L FRC N2: 1.70 L 77% ERV: 0.24 L RV: 1.33 L 70% RV/TLC %:: 49 predicted 44 Diffusion Capactity: DLCO: 9.2 48% DLCO/VA: 3.60 107% Impression: Obstructive defect is implied by the decrease flow in the FEF 25-75%. Mild restrictive ventilatory defect. (Restrictive defect may mask the degree of obstruction.) No hyperinflation or air trapping. Severe decrease in diffusion capacity.
== END 2019-09-04 15:30 | DRG 291 ==
LOC: ER 05:06 → EH 12:33 → 4S 15:16 → OBSVTOIN 09-01 13:18
PROVIDERS: ADMIT Internal Medicine; ATTEND Internal Medicine
DX: I11.0 Hypertensive heart disease with heart failure (principal); J96.21 Acute and chronic respiratory failure with hypoxia; J84.9 Interstitial pulmonary disease, unspecified; I48.20 Chronic atrial fibrillation, unspecified; I50.23 Acute on chronic systolic (congestive) heart failure; E87.6 Hypokalemia; E03.9 Hypothyroidism, unspecified; D50.9 Iron deficiency anemia, unspecified; R53.1 Weakness; E78.5 Hyperlipidemia, unspecified; K21.9 Gastro-esophageal reflux disease without esophagitis; I25.10 Atherosclerotic heart disease of native coronary artery without angina pectoris; I27.20 Pulmonary hypertension, unspecified; M19.90 Unspecified osteoarthritis, unspecified site; Z86.73 Personal history of transient ischemic attack (TIA), and cerebral infarction without residual deficits; Z95.1 Presence of aortocoronary bypass graft; Z95.5 Presence of coronary angioplasty implant and graft
CPT/HCPCS: 36415; 36600; 51701; 51702; 71046; 71250; 71275; 80048; 80053; 81001; 82533; 82550; 82803; 83735; 83880; 83930; 83935; 84300; 84443; 84484; 85025; 85652; 86038; 86140; 86162; 86225; 86430; 87070; 93005; 93010; 93306; 96374; 99285; J1650; J1940; J3490; J7030

== ENCOUNTER 2019-09-15 17:46 | Emergency (ER) | payer MEDICARE, OTHER ==
[2019-09-15 19:25] LABS: ABSOLUTE LYMPHOCYTES (AUTO) 0.7 10^3/uL (0.5-4.7); ABSOLUTE MONOCYTES (AUTO) 0.5 10^3/uL (0.1-1.4); ABSOLUTE NEUT (AUTO) 9.3 10^3/uL (1.7-8.2); BASOPHILS % (AUTO) 0.3 % (0-2); EOSINOPHILS % (AUTO) 0.2 % (0-6); HEMATOCRIT 28.8 % (36.0-47.0); HEMOGLOBIN 9.5 g/dL (12.0-15.5); LYMPHOCYTES % (AUTO) 6.3 % (13-45); MEAN CORPUSCULAR HEMOGLOBIN 29.3 pg (27.0-33.4); MEAN CORPUSCULAR VOLUME 89 fl (80-97); MONOCYTES % (AUTO) 4.4 % (3-13); PLATELET COUNT 409 10^3/uL (150-450); RED BLOOD COUNT 3.25 10^6/uL (3.72-5.28); RED CELL DISTRIBUTION WIDTH 15.1 % (11.5-14.0); SEGMENTED NEUTROPHILS % (AUTO) 88.8 % (42-78); TOTAL CELLS COUNTED % (AUTO) 100 %; WHITE BLOOD COUNT 10.4 10^3/uL (4.0-10.5)
[2019-09-15 19:29] LABS: ALBUMIN 2.8 g/dL (3.5-5.0); ALKALINE PHOSPHATASE 87 U/L (38-126); ANION GAP 12 (5-19); ASPARTATE AMINO TRANSFERASE 18 U/L (14-36); BILIRUBIN,DIRECT 0.3 mg/dL (0.0-0.4); BILIRUBIN,TOTAL 0.3 mg/dL (0.2-1.3); BLOOD UREA NITROGEN 23 mg/dL (7-20); CALCIUM 8.2 mg/dL (8.4-10.2); CARBON DIOXIDE 24 mmol/L (22-30); CHLORIDE 96 mmol/L (98-107); GLUCOSE 162 mg/dL (75-110); POTASSIUM 4.8 mmol/L (3.6-5.0); TOTAL PROTEIN 5.8 g/dL (6.3-8.2)
[2019-09-15 19:30] LABS: CREATINE KINASE < 20 U/L (30-135)
[2019-09-15 19:40] LABS: CREATINE KINASE MB 0.72 ng/mL (<4.55); TROPONIN I < 0.012 ng/mL
[2019-09-15 20:51] LABS: APPEARANCE,URINE CLOUDY; BILIRUBIN,URINE NEGATIVE (NEGATIVE); GLUCOSE, URINE NEGATIVE (NEGATIVE); KETONES,URINE TRACE mg/dL (NEGATIVE); LEUKOCYTE ESTERASE,URINE NEGATIVE (NEGATIVE); NITRITE,URINE POSITIVE (NEGATIVE); PROTEIN,URINE 30 mg/dL (NEGATIVE); URINE SPECIFIC GRAVITY 1.015; UROBILINOGEN,URINE NEGATIVE mg/dL (<2.0)
[2019-09-15 20:52] LABS: COLOR,URINE YELLOW
--- NOTE | 2019-09-15 21:43 | ER Document Report ---
ED General - General Chief Complaint: General Weakness Stated Complaint: FEELING UNWELL Time Seen by Provider: 09/15/19 20:15 Primary Care Provider: ETHAN MCMAHON MD [Primary Care Provider] - Follow up as needed TRAVEL OUTSIDE OF THE [place] IN LAST 30 DAYS: No - HPI Notes: Patient is an 84-year-old female who presents to the emergency department for evaluation. She is not a very good historian. She states that she has just not been feeling well. She had told the nurses earlier today back, and was sent into the emergency department for further evaluation. She denies any pain at this time. She is had no fevers to her knowledge. She states she had one episode of emesis yesterday morning. She attributes this to acid reflux. She states that this is happened multiple times in the past, really does not consider it out of the ordinary. Normal bowel movements. States she is taking her medications as prescribed. - Related Data Allergies/Adverse Reactions: levofloxacin [From Levaquin] Allergy (Severe, Verified 08/11/19 14:18) Diarrhea Home Medications: magnesium, iron, coQ-10, ambrisentan, lisinopril, lovenox, nintedanib, imodium, ascorbic acid tab, cranberry, cyanocobamin, ecotrin, omega 3, preservision, restasis, sodium chloride, tramadol, tadalafil Past Medical History - General Information source: Patient, Outside Facility Records - Social History Smoking Status: Former Smoker Chew tobacco use (# tins/day): No Frequency of alcohol use: None Drug Abuse: None Family History: Hypertension, Malignancy Patient has suicidal ideation: No Patient has homicidal ideation: No - Past Medical History Cardiac Medical History: Reports: Hx Coronary Artery Disease, Hx Heart Attack, Hx Hypercholesterolemia, Hx Hypertension Denies: Hx Atrial Fibrillation, Hx Congestive Heart Failure, Hx Peripheral Vascular Disease, Hx Heart Murmur Pulmonary Medical History: Reports: Hx Pneumonia - 2011 Denies: Hx Asthma, Hx Bronchitis, Hx COPD, Hx Tuberculosis Neurological Medical History: Reports: Hx Cerebrovascular Accident. Denies: Hx Seizures Endocrine Medical History: Denies: Hx Diabetes Mellitus Type 1, Hx Diabetes Mellitus Type 2, Hx Hyperthyroidism, Hx Hypothyroidism Renal/ Medical History: Denies: Hx Peritoneal Dialysis GI Medical History: Reports: Hx Gastroesophageal Reflux Disease. Denies: Hx Cirrhosis, Hx Hepatitis Musculoskeletal Medical History: Reports Hx Arthritis, Denies Hx Gout Skin Medical History: Denies Hx Eczema, Denies Hx Psoriasis Psychiatric Medical History: Denies: Hx Depression Infectious Medical History: Denies: Hx Hepatitis Past Surgical History: Reports: Hx Cardiac Catheterization, Hx Cardiac Surgery - "bypass", Hx Coronary Artery Bypass Graft, Hx Coronary Stent, Hx Hysterectomy, Hx Tubal Ligation. Denies: Hx Appendectomy, Hx Bowel Surgery, Hx Section, Hx Cholecystectomy, Hx Gastric Bypass Surgery, Hx Herniorrhaphy, Hx Mastectomy, Hx Pacemaker, Hx Tonsillectomy - Immunizations Hx Diphtheria, Pertussis, Tetanus Vaccination: No Hx Pneumococcal Vaccination: 08/15/19 Review of Systems - Review of Systems Constitutional: See HPI EENT: No symptoms reported Cardiovascular: No symptoms reported Respiratory: No symptoms reported Gastrointestinal: See HPI Genitourinary: No symptoms reported Musculoskeletal: No symptoms reported Skin: No symptoms reported Neurological/Psychological: No symptoms reported Physical Exam - Vital signs Vitals: Temp 98.4 F 09/15/19 17:46 - Notes Notes: This is a pleasant 84-year-old female who is lying in bed, appears her stated age in no acute distress. Vital signs reviewed, please refer to chart. Head is normocephalic, atraumatic. Pupils equal round, reactive to light. Neck is supple without meningismus. Heart is regular rate and rhythm with holosystolic murmur. Lungs are clear to auscultation bilaterally. Abdomen is soft, nontender, normoactive bowel sounds throughout. Extremities without cyanosis, clubbing. Posterior calves are nontender. Peripheral pulses are equal. Skin is warm and dry. Patient is awake, alert, neurological exam is nonfocal. Course - Re-evaluation Re-evalutation: 09/15/19 21:40 Patient presents to the emergency department for evaluation. Overall she states she just was not feeling well. Initially she was mildly tachycardic. Laboratory investigations were obtained, including blood cultures. She was given IV fluids. I did review her recent echocardiogram, which showed a normal LVEF. Lactate was mildly elevated. Blood cultures are pending. Her urine did reveal signs of infection. At this point, I do believe that a trial of outpatient antibiotics is acceptable. She does not have a significant leukocytosis. The patient has had a hyponatremia in the past, but actually much worse than this. She is tolerating p.o. She has no acute complaints. She is given a dose of IV Rocephin here, will send her back to [facility] with outpatient antibiotics and close follow-up. She is to return to the ED with worsening. 09/15/19 21:41 09/15/19 21:42 - Vital Signs Vital signs: Temp Pulse Resp BP Pulse Ox 98.4 F 19 97/59 L 89 L 09/15/19 17:46 09/15/19 18:03 09/15/19 18:03 09/15/19 18:03 - Laboratory Result Diagrams: 09/15/19 18:00 09/15/19 18:00 Laboratory results interpreted by me: 09/15/19 09/15/19 09/15/19 18:00 18:00 18:00 RBC 3.25 L Hgb 9.5 L Hct 28.8 L RDW 15.1 H Lymph % (Auto) 6.3 L Absolute Neuts (auto) 9.3 H Seg Neutrophils % 88.8 H Sodium 131.9 L Chloride 96 L BUN 23 H Est GFR ( Amer) 52 L Est GFR (MDRD) Non-Af 43 L Glucose 162 H Lactic Acid 4.2 H Calcium 8.2 L Creatine Kinase < 20 L Total Protein 5.8 L Albumin 2.8 L Urine Protein Urine Ketones Urine Nitrite Urine Ascorbic Acid 09/15/19 20:24 RBC Hgb Hct RDW Lymph % (Auto) Absolute Neuts (auto) Seg Neutrophils % Sodium Chloride BUN Est GFR ( Amer) Est GFR (MDRD) Non-Af Glucose Lactic Acid Calcium Creatine Kinase Total Protein Albumin Urine Protein 30 H Urine Ketones TRACE H Urine Nitrite POSITIVE H Urine Ascorbic Acid 40 H - EKG Interpretation by Me Additional EKG results interpreted by me: 09/15/19 21:41 Sinus tachycardia with a rate of 101 bpm. Normal axis and intervals, no acute ST changes concerning for ischemia or infarction. Discharge - Discharge Clinical Impression: Urinary tract infection Qualifiers: Urinary tract infection type: site unspecified Hematuria presence: without hematuria Qualified Code(s): N39.0 - Urinary tract infection, site not specified Condition: Stable Disposition: HOME-SNF (ED ONLY) Instructions: Cephalexin ([facility]), Urinary Tract Infection ([facility]) Additional Instructions: Take antibiotic as prescribed until gone. Follow-up with primary care next week. If you develop worsening or new concerning symptoms of any sort, please return immediately to the emergency department for evaluation. Referrals: ETHAN MCMAHON MD [Primary Care Provider] - Follow up as needed
[2019-09-15] MEDS: NORMAL SALINE 1000 ML 1,000 ML IV PRN ×2 (21:50→22:33)
[2019-09-15] MEDS ORDERED: CEFTRIAXONE 1 GM/D5W RTU 1 GM/50 ML RTUPB IV ONE (22:00)
[2019-09-15 23:00] VITALS: BP 102/48
--- NOTE | 2019-09-16 07:53 | EKG REPORT ---
SEVERITY:- ABNORMAL ECG - SINUS TACHYCARDIA INFERIOR INFARCT, AGE INDETERMINATE : Confirmed by: Brennen Hancock MD 16-Sep-2019 07:52:29
== END 2019-09-15 23:10 ==
LOC: ER 17:46
DX: N39.0 Urinary tract infection, site not specified (principal); R53.1 Weakness; R00.0 Tachycardia, unspecified; I25.10 Atherosclerotic heart disease of native coronary artery without angina pectoris; E78.00 Pure hypercholesterolemia, unspecified; I10 Essential (primary) hypertension; Z86.73 Personal history of transient ischemic attack (TIA), and cerebral infarction without residual deficits; Z88.3 Allergy status to other anti-infective agents; Z95.1 Presence of aortocoronary bypass graft; Z90.710 Acquired absence of both cervix and uterus; I25.2 Old myocardial infarction
CPT/HCPCS: 93005; 99285; 96361; 96365; 36415; 87040; 87086; 82553; 82550; 83605; 85025; 87088; 80053; 81001; 84484; 87186; 93010; J7030; J0696

== ENCOUNTER 2019-09-29 17:44 | Inpatient (IN) | payer MEDICARE, OTHER ==
[2019-09-29] MEDS ORDERED: FUROSEMIDE INJ/PF 20 MG/2 ML SDV IV PRN (18:18)
[2019-09-29 18:52] LABS: HEMATOCRIT 28.6 % (36.0-47.0); HEMOGLOBIN 9.4 g/dL (12.0-15.5); MEAN CORPUSCULAR HEMOGLOBIN 28.4 pg (27.0-33.4); MEAN CORPUSCULAR HGB CONC 32.7 g/dL (32.0-36.0); MEAN CORPUSCULAR VOLUME 87 fl (80-97); PLATELET COUNT 262 10^3/uL (150-450); RED CELL DISTRIBUTION WIDTH 15.7 % (11.5-14.0); WHITE BLOOD COUNT 4.3 10^3/uL (4.0-10.5)
[2019-09-29 19:01] LABS: PARTIAL THROMBOPLASTIN TIME 33.1 SEC (23.5-35.8); PROTHROMBIN TIME 14.3 SEC (11.4-15.4)
--- NOTE | 2019-09-29 19:11 | RADIOLOGY REPORT (SQ) ---
EXAM DESCRIPTION: CHEST SINGLE VIEW COMPLETED DATE/TIME: 09/29/2019 6:57 pm REASON FOR STUDY: CHF COMPARISON: 08/30/2019 EXAM PARAMETERS: NUMBER OF VIEWS: One view. TECHNIQUE: Single frontal radiographic view of the chest acquired. RADIATION DOSE: NA LIMITATIONS: None. FINDINGS: LUNGS AND PLEURA: Chronic interstitial changes. No infiltrate. MEDIASTINUM AND HILAR STRUCTURES: Stable. HEART AND VASCULAR STRUCTURES: Stable. BONES: No acute findings. HARDWARE: CABG. OTHER: No other significant finding. IMPRESSION: NO ACUTE RADIOGRAPHIC FINDING IN THE CHEST. TECHNICAL DOCUMENTATION: JOB ID: [id number] [employer]- All Rights Reserved Reading location - IP/workstation name: [email or web address]
[2019-09-29 19:20] LABS: ALBUMIN 2.6 g/dL (3.5-5.0); ALKALINE PHOSPHATASE 107 U/L (38-126); ANION GAP 7 (5-19); ASPARTATE AMINO TRANSFERASE 13 U/L (14-36); BILIRUBIN,DIRECT 0.3 mg/dL (0.0-0.4); BILIRUBIN,TOTAL 0.4 mg/dL (0.2-1.3); BLOOD UREA NITROGEN 21 mg/dL (7-20); CALCIUM 7.7 mg/dL (8.4-10.2); CARBON DIOXIDE 27 mmol/L (22-30); CHLORIDE 94 mmol/L (98-107); GLUCOSE 101 mg/dL (75-110); POTASSIUM 4.9 mmol/L (3.6-5.0); TOTAL PROTEIN 5.3 g/dL (6.3-8.2)
--- NOTE | 2019-09-29 19:43 | PDOC H&P ---
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 She has orthopnea but no PND. She denies any chest pain or discomfort. She does not ambulate much but uses the wheelchair and does have some dyspnea on more than mild exertion. There is no cough or sputum production. The patient also has a history of interstitial pulmonary fibrosis. Fibrosis. The patient also complains of generalized fatigue and weakness and with severe leg swelling. In view of the patient's acute on chronic right ventricle systolic heart failure due to pulmonary hypertension the patient is being admitted for inotropic treatment, including treatment of her comorbidities and her severe pulmonary hypertension. She denies any fever chills or cough. There is no sputum production or cough. There is no hemoptysis. The patient complains of generalized fatigue and generalized weakness. She has no TIA CVA symptoms. She denies palpitations near syncope or syncope. She also said that she was so weak the past few days that she is not able to even get up on the wheelchair without assistance. She definitely has not had anginal symptoms in a long time. Past Medical History Cardiac Medical History: Reports: Coronary Artery Disease, Myocardial Infarction, Hyperlipidema, Hypertension Denies: Atrial Fibrillation, Congestive Heart Failure, Peripheral Vascular Disease, Heart Murmur Pulmonary Medical History: Reports: Pneumonia - 2012 Denies: Asthma, Bronchitis, Chronic Obstructive Pulmonary Disease (COPD), Tuberculosis Neurological Medical History: Denies: Seizures Endocrine Medical History: Denies: Diabetes Mellitus Type 1, Diabetes Mellitus Type 2, Hyperthyroidism, Hypothyroidism GI Medical History: Reports: Gastroesophageal Reflux Disease Denies: Cirrhosis, Hepatitis Musculoskeltal Medical History: Reports: Arthritis Denies: Gout Skin Medical History: Denies: Eczema, Psoriasis Psychiatric Medical History: Denies: Depression Hematology: Denies: Anemia, Bleeding Tendencies Past Surgical History Past Surgical History: Reports: Cardiac Catheterization, Coronary Artery Bypass Graft, Coronary Stent, Hysterectomy, Tubal Ligation Denies: Appendectomy, Section, Cholecystectomy, Gastric Bypass Surgery, Herniorrhaphy, Mastectomy, Pacemaker, Tonsillectomy Social History Smoking Status: Former Smoker Electronic Cigarette use?: No Number of Years Smokin Frequency of Alcohol Use: None Hx Recreational Drug Use: No Drugs: None Hx Prescription Drug Abuse: No - Advance Directive Resuscitation Status: Do Not Intubate - Have spoken to the patient's daughter and the patient and they both want DO NOT INTUBATE. Family History Family History: Hypertension, Malignancy Medication/Allergy Home Medications: Ascorbic Acid [Vitamin C 500 mg Tablet] 500 mg PO BID 09/29/19 Aspirin [Ecotrin 81 mg EC Tablet] 81 mg PO DAILY 09/29/19 Cranberry Conc/C/Bacill Coag [AZO Cranberry Tablet] 1 each PO DAILY 09/29/19 Cyanocobalamin (Vitamin B-12) [Vitamin B-12] 1,000 mcg PO DAILY 09/29/19 Cyclosporine 0.05% Oph Emulsio [Restasis 0.05% Opthalmic Droperette] 1 drop OU BID 09/29/19 Docusate Sodium [Colace 100 mg Capsule] 100 mg PO BID 09/29/19 Ferrous Sulfate [Feosol 325 mg Tablet] 325 mg PO DAILY 09/29/19 Isosorbide Mononitrate [Isosorbide Mononitrate ER] 120 mg PO QPM 09/29/19 Magnesium 250 mg PO DAILY 09/29/19 Ponce-3 Fatty Acids/Fish Oil [Ponce 3 Fish Oil Softgel] 1 each PO BID 09/29/19 Sodium Chloride [Sodium Chloride 1 Gm Tablet] 1 gm PO BID 09/29/19 Tramadol HCl [Ultram 50 mg Tablet] 50 mg PO Q12 09/29/19 Ubidecarenone [Coq-10] 100 mg PO DAILY 09/29/19 Vit A/Vit C/Vit E/Zinc/Copper [Preservision Areds Softgel] 1 each PO BID 09/29/19 Allergies/Adverse Reactions: levofloxacin [From Levaquin] Allergy (Severe, Verified 08/11/19 14:18) Diarrhea Review of Systems Constitutional: PRESENT: other - Denies fever chills or rigors. Complains of generalized fatigue and generalized weakness. Eyes: PRESENT: other - Denies amblyopia diplopia. No amaurosis fugax. No allergic discoloration of the skin. There is mild conjunctival pallor. Ears: PRESENT: other - She has mild hearing loss. There is no vertigo. No tinnitus. Nose, Mouth, and Throat: PRESENT: other - There is no history of hayfever or nosebleeds. There is no altered taste sensation and no bleeding from the mouth or gums. There is no odynophagia or dysphagia. There is no recurrent sore throats. Cardiovascular: PRESENT: dyspnea on exertion - She denies palpitations or near syncope or syncope. There is no PND. Her leg edema has been increasing very much., edema, orthropnea - She denies any chest pain discomfort. No anginal symptoms., other - The patient has symptoms of acute on chronic right ventricle systolic heart failure. Respiratory: PRESENT: dyspnea - She at times has a dry cough. No hemoptysis. No sputum production. No pleuritic chest pain. No history of sleep apnea. No wheezing. Gastrointestinal: PRESENT: other - Complains of poor appetite or appetite. No GI bleed. No altered bowel movements. No fatty food intolerance. No history of hepatitis or jaundice. Genitourinary: PRESENT: other - There is no hematuria pyuria or dysuria. Integumentary: PRESENT: other - No skin rashes. No psoriasis. No allergic discoloration of the skin. There is no petechia or ecchymosis. Neurological: PRESENT: other - There is no focal neurological deficits. Knows of seizures. No history of headaches or migraines. She has gait imbalance. Endocrine: PRESENT: other - She has a history of hypothyroidism. No history of diabetes mellitus. No history of heat or cold intolerance. No history of polydipsia polyuria. Hematologic/Lymphatic: PRESENT: other - She has a history of anemia secondary to chronic disease and also secondary to B12 deficiency. She is on B12 replacement. Allergic/Immunologic: PRESENT: other - She has no seasonal allergies. Physical Exam Vital Signs: Temp Pulse Resp BP Pulse Ox 92 09/29/19 19:00 General appearance: PRESENT: other - The patient appears to be chronically ill. At present no acute distress. She is mildly obese. She is well-groomed she is slightly hard of hearing. Eye exam: PRESENT: conjunctiva pale, EOMI, PERRLA, other - There is no scleral icterus. Mouth exam: PRESENT: moist, neck supple, tongue midline Teeth exam: PRESENT: other - There is no bleeding from the gums. Throat exam: PRESENT: other - There is no redness of the oropharynx. There is no exudates. Neck exam: PRESENT: other - Neck is supple. There is no JVD. Carotids are equal there is no bruit. There is no lymphadenopathy. There is no goiter. There is no accessory muscle respiration use. Trachea central. Respiratory exam: PRESENT: other - Lungs show harsh breath sounds. A few c repitant rales of pulmonary fibrosis present in the bases. There is no rales of CHF. There is no chest wall tenderness. There is no hyperresonance or dullness on percussion. Pulses: PRESENT: normal carotid pulses, normal radial pulses, normal femoral pulses, +2 pedal pulses bilateral Vascular exam: PRESENT: normal capillary refill GI/Abdominal exam: PRESENT: other - Abdomen is soft there is no hepatosplenomegaly. Bowel sounds are well heard. There is no tender areas of masses. There is no rebound guarding or rigidity. Rectal exam: PRESENT: deferred Extremities exam: PRESENT: other - There is 2+ bilateral edema. There is no cellulitis. There is no cyanosis or clubbing. There is no calf tenderness. There is no DVT or cellulitis. Neurological exam: PRESENT: other - The patient is conscious she is oriented x3. There is no focal deficits. Focused psych exam: PRESENT: other - The patient is of slow mentation but appears to have normal judgment and insight. Skin exam: PRESENT: warm, other - There is no skin lesions or skin rashes. There is no petechia or ecchymosis. Results Laboratory Results: 09/29/19 18:31 09/29/19 18:31 09/29/19 09/29/19 18:31 18:31 WBC 4.3 RBC 3.30 L Hgb 9.4 L Hct 28.6 L MCV 87 MCH 28.4 MCHC 32.7 RDW 15.7 H Plt Count 262 Sodium 128.2 L Potassium 4.9 Chloride 94 L Carbon Dioxide 27 Anion Gap 7 BUN 21 H Creatinine 1.00 Est GFR ( Amer) > 60 Glucose 101 Calcium 7.7 L Magnesium 2.8 H Total Bilirubin 0.4 AST 13 L Alkaline Phosphatase 107 Total Protein 5.3 L Albumin 2.6 L Impressions: Chest X-Ray 09/29/19 00:00 IMPRESSION: NO ACUTE RADIOGRAPHIC FINDING IN THE CHEST. Assessment & Plan - Diagnosis (1) Acute on chronic right ventricular systo Is this a current diagnosis for this admission?: Yes Plan: Will get the surgical list to place a triple-lumen catheter. Then will start the patient on dobutamine at 2.5 mcg/kg/min and increase as tolerated. If no significant response to dobutamine then would start the patient on IV milrinone in the ICU. We will also start the patient on Lasix and watch the patient's BUN/creatinine cautiously. Note she was started on Cialis in the snf by the grinder set up operator surface. But it was stated that her blood pressure dropped. Hence we will not use sildenafil. Also the patient is on nitrates. (2) Severe pulmonary hypertension Is this a current diagnosis for this admission?: Yes Plan: We will continue the patient on ARB and see if we can add amlodipine or hydralazine dobutamine should help in reducing the pulmonary arterial pressures. We will make sure that the patient is not hypoxic since hypoxemia will aggravate the severity of pulmonary hypertension. (3) Chronic pulmonary hypertension Is this a current diagnosis for this admission?: Yes Plan: Once the patient is discharged from the hospital for chronic pulmonary hypertension will see if we can refer the patient to [facility] pulmonary hypertension clinic (4) Atherosclerotic heart disease of [place] coronary artery without angina pectoris Qualifiers: [place] vs. transplanted heart: [place] heart Qualified Code(s): I25.10 - Atherosclerotic heart disease of [place] coronary artery without angina pectoris Is this a current diagnosis for this admission?: Yes Plan: This is stable the patient has no anginal symptoms. There is no evidence of acute coronary event this admission at present time. Continue the patient on nitrates. Continue aspirin. (5) Benign essential hypertension Is this a current diagnosis for this admission?: Yes Plan: Patient blood pressure well controlled. Continue current antihypertensive. (6) Interstitial lung disease Is this a current diagnosis for this admission?: Yes Plan: The patient in the past has had elevated sed rate. Will repeat the patient sed rate. If this is elevated will have pulmonary physician see the patient and start the patient on steroids. (7) Hx of CABG Is this a current diagnosis for this admission?: Yes Plan: She has history of coronary bypass graft surgery. And she is stable. (8) Hyperlipidemia Qualifiers: Hyperlipidemia type: unspecified Qualified Code(s): E78.5 - Hyperlipidemia, unspecified Is this a current diagnosis for this admission?: Yes Plan: We will continue the patient's statin. (9) B12 deficiency Is this a current diagnosis for this admission?: Yes Plan: We will continue the patient's oral B12. - Time Time Spent: 50 to 70 Minutes Critical Time spent with patient: Less than 15 minutes Medications reviewed and adjusted accordingly: Yes Anticipated discharge: Other - Depending on the patient's response to inotropic agent and current treatment. This may be to patient's home with home health or rehab facility. Within: Other - This again depends on the patient's clinical response to the treatment. - Inpatient Certification Medical Necessity: Significant Comorbidiites Make Outpatient Treatment Too Risky - Risky. Also the patient needs aggressive inotropic support which cannot be done as an outpatient., Need Close Monitoring Due to Risk of Patient Decompensation, Need For Continuous Telemetry Monitoring, Risk of Complication if Not Cared For in Hospital - Plan Summary Plan Summary: As mentioned above. We will titrate the patient medication. We will review the patient's previous collagen vascular work-up done with respect to lab results that were sent out.
[2019-09-29] MEDS ORDERED: LIDOCAINE 1% INJ-PF (10 MG/ML) 30 ML SDV ONE ×2 (21:14→22:09)
--- NOTE | 2019-09-29 21:15 | PDOC CONSULTATION ---
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 Past Medical History Cardiac Medical History: Reports: Coronary Artery Disease, Myocardial Infarction, Hyperlipidema, Hypertension Denies: Atrial Fibrillation, Congestive Heart Failure, Peripheral Vascular Disease, Heart Murmur Pulmonary Medical History: Reports: Pneumonia - 2012 Denies: Asthma, Bronchitis, Chronic Obstructive Pulmonary Disease (COPD), Tuberculosis Neurological Medical History: Denies: Seizures Endocrine Medical History: Denies: Diabetes Mellitus Type 1, Diabetes Mellitus Type 2, Hyperthyroidism, Hypothyroidism GI Medical History: Reports: Gastroesophageal Reflux Disease Denies: Cirrhosis, Hepatitis Musculoskeltal Medical History: Reports: Arthritis Denies: Gout Skin Medical History: Denies: Eczema, Psoriasis Psychiatric Medical History: Denies: Depression Hematology: Denies: Anemia, Bleeding Tendencies Past Surgical History Past Surgical History: Reports: Cardiac Catheterization, Coronary Artery Bypass Graft, Coronary Stent, Hysterectomy, Tubal Ligation Denies: Appendectomy, Section, Cholecystectomy, Gastric Bypass Surgery, Herniorrhaphy, Mastectomy, Pacemaker, Tonsillectomy Social History Smoking Status: Former Smoker Electronic Cigarette use?: No Number of Years Smokin Frequency of Alcohol Use: None Hx Recreational Drug Use: No Drugs: None Hx Prescription Drug Abuse: No Family History Family History: Hypertension, Malignancy Parental Family History Reviewed: No Children Family History Reviewed: No Sibling(s) Family History Reviewed.: No Medication/Allergy Home Medications: Ascorbic Acid [Vitamin C 500 mg Tablet] 500 mg PO BID 09/29/19 Aspirin [Ecotrin 81 mg EC Tablet] 81 mg PO DAILY 09/29/19 Cranberry Conc/C/Bacill Coag [AZO Cranberry Tablet] 1 each PO DAILY 09/29/19 Cyanocobalamin (Vitamin B-12) [Vitamin B-12] 1,000 mcg PO DAILY 09/29/19 Cyclosporine 0.05% Oph Emulsio [Restasis 0.05% Opthalmic Droperette] 1 drop OU BID 09/29/19 Docusate Sodium [Colace 100 mg Capsule] 100 mg PO BID 09/29/19 Ferrous Sulfate [Feosol 325 mg Tablet] 325 mg PO DAILY 09/29/19 Isosorbide Mononitrate [Isosorbide Mononitrate ER] 120 mg PO QPM 09/29/19 Magnesium 250 mg PO DAILY 09/29/19 [place]-3 Fatty Acids/Fish Oil [[place] 3 Fish Oil Softgel] 1 each PO BID 09/29/19 Sodium Chloride [Sodium Chloride 1 Gm Tablet] 1 gm PO BID 09/29/19 Tramadol HCl [Ultram 50 mg Tablet] 50 mg PO Q12 09/29/19 Ubidecarenone [Coq-10] 100 mg PO DAILY 09/29/19 Vit A/Vit C/Vit E/Zinc/Copper [Preservision Areds Softgel] 1 each PO BID 09/29/19 Allergies/Adverse Reactions: levofloxacin [From Levaquin] Allergy (Severe, Verified 08/11/19 14:18) Diarrhea Physical Exam Vital Signs: Temp Pulse Resp BP Pulse Ox 98.3 F 97 16 131/70 H 95 09/29/19 20:23 09/29/19 20:23 09/29/19 20:23 09/29/19 20:23 09/29/19 20:23 Intake & Output 09/28/19 09/29/19 09/30/19 06:59 06:59 06:59 Weight 80 kg General appearance: PRESENT: no acute distress, thin, well-developed Head exam: PRESENT: atraumatic Eye exam: PRESENT: EOMI Mouth exam: PRESENT: neck supple Neck exam: PRESENT: full ROM Respiratory exam: PRESENT: clear to auscultation wojciech Cardiovascular exam: PRESENT: RRR GI/Abdominal exam: PRESENT: soft Extremities exam: PRESENT: clubbing Musculoskeletal exam: PRESENT: full ROM Results Laboratory Results: 09/29/19 18:31 09/29/19 18:31 09/29/19 09/29/19 18:31 18:31 WBC 4.3 RBC 3.30 L Hgb 9.4 L Hct 28.6 L MCV 87 MCH 28.4 MCHC 32.7 RDW 15.7 H Plt Count 262 Sodium 128.2 L Potassium 4.9 Chloride 94 L Carbon Dioxide 27 Anion Gap 7 BUN 21 H Creatinine 1.00 Est GFR ( Amer) > 60 Glucose 101 Calcium 7.7 L Magnesium 2.8 H Total Bilirubin 0.4 AST 13 L Alkaline Phosphatase 107 Total Protein 5.3 L Albumin 2.6 L Impressions: Chest X-Ray 09/29/19 00:00 IMPRESSION: NO ACUTE RADIOGRAPHIC FINDING IN THE CHEST. Assessment & Plan - Diagnosis (1) Need for intravenous access Is this a current diagnosis for this admission?: Yes - Plan Summary Plan Summary: Assessment: Severe congestive heart failure Patient in need of administration of inotropic therapy Patient need of IV access for the above Plan: Placement of triple-lumen central venous line at bedside today Procedure, risks, benefits, complications, explained to the patient, she understands all the above, she decides to proceed
--- NOTE | 2019-09-29 22:22 | Operative Report ---
Nonrecallable Operative Report DATE OF SURGERY: 09/29/19 PREOPERATIVE DIAGNOSIS: Need of IV access POSTOPERATIVE DIAGNOSIS: Same OPERATION: Meant of right IJ central venous line SURGEON: TERRI BREWER ANESTHESIA: Other - Rivelsa 1% lidocaine TISSUE REMOVED OR ALTERED: None COMPLICATIONS: None ESTIMATED BLOOD LOSS: Then 10 mL PROCEDURE: The procedure was done at bedside: The patient was placed in a supine position, the patient neck and chest were prepped and draped in the usual fashion. The right apex of the sternocleidomastoid anterior triangle was infiltrated with lidocaine, a 16-gauge needle was then used to cannulate the right jugular vein without difficulty with good blood return; a guidewire was inserted through the needle into the jugular vein vein without difficulty the needle was removed. The insertion point of the guidewire was enlarged with a #11 blade and a tissue dilator which was then removed. A triple-lumen catheter was inserted without difficulty over the guidewire into the right jugular vein without difficulty up to 17 cm, the guidewire was removed. Each port was aspirated and flushed with normal saline without difficulty. The catheter was secured to the skin with 3-0 nylon sutures and sterile dressing applied. The patient tolerated the procedure well and portable chest-ray was obtained to confirm good position of the line.
--- NOTE | 2019-09-29 22:43 | RADIOLOGY REPORT (SQ) ---
EXAM DESCRIPTION: [facility]: XR CHEST 1 VIEW CLINICAL HISTORY: 84 years Female, central line insertion FINDINGS: AP chest at 2229. Since earlier today at 1839, a right IJ line has been placed, tip in the SVC near the cavoatrial junction. No pneumothorax. Lungs are unchanged. Mediastinum is unchanged. Sternal wires are again noted. IMPRESSION: Right IJ line tip in the SVC. No pneumothorax.
[2019-09-30] MEDS ORDERED: DOBUTAMINE HCL/D5W 500 MG/250 ML RTUINJ IV PRN ×2 (00:16→22:46)
--- NOTE | 2019-09-30 01:02 | EKG REPORT ---
SEVERITY:- OTHERWISE NORMAL ECG - SINUS RHYTHM ATRIAL PREMATURE COMPLEX : Confirmed by: Mary Eugene MD 30-Sep-2019 01:01:48
[2019-09-30] MEDS: DOBUTAMINE HCL/D5W 500 MG/250 ML RTUINJ IV PRN ×2 (01:13→23:01)
[2019-09-30] MEDS: DOCUSATE SODIUM 100 MG CAPSULE PO SCH ×2 (09:56→17:17)
[2019-09-30] MEDS ORDERED: (PENDING PHARMACY ID) (Ubidecarenone [Coq-10] 100 MG) PO SCH (10:00)
[2019-09-30] MEDS ORDERED: (PENDING PHARMACY ID) (Vit A/Vit C/Vit E/Zinc/Copper [Preservision Areds Softgel] 1 EACH) PO SCH (10:00)
[2019-09-30] MEDS: ASPIRIN 81 MG TABLET, ENT COATED PO SCH (10:11)
[2019-09-30] MEDS: CYANOCOBALAMIN (VITAMIN B-12) 1,000 MCG TABLET PO SCH (10:11)
[2019-09-30] MEDS: FERROUS SULFATE 325 MG TABLET PO SCH (10:11)
[2019-09-30] MEDS: ASCORBIC ACID 500 MG TABLET PO SCH ×2 (10:11→17:16)
[2019-09-30] MEDS: LISINOPRIL 5 MG TABLET PO SCH ×2 (10:11→23:00)
[2019-09-30] MEDS: CYCLOSPORINE 0.05% OPH EMULSIO 0.4 ML DROPERETTE OU SCH ×2 (10:12→17:16)
[2019-09-30] MEDS: FUROSEMIDE INJ/PF 20 MG/2 ML SDV IV SCH ×2 (10:12→17:16)
[2019-09-30] MEDS: ENOXAPARIN SODIUM INJ 40 MG/0.4 ML DISP.SYRIN SUBCUT SCH (10:12)
[2019-09-30] MEDS ORDERED: ONDANSETRON HCL INJ/PF 4 MG/2 ML SDV IV PRN (12:08)
--- NOTE | 2019-09-30 14:51 | PDOC CONSULTATION ---
Consultation Consult Date: 09/30/19 Attending physician:: RA MATIAS Provider Consulted: DANIELA MELTON Consult reason:: Increasing dyspnea History of Present Illness Ad[facility] Date[facility]: [facility] of Present Illness: SUNITA BALLESTEROS is a 84 year old female,Well-known to [facility] for COPD advanced chronic respiratory failure O2 dependent as well as coronary artery disease and right heart failure presents with increasing dyspnea as well as swelling in her legs it was felt that she was in cor pulmonale and was admitted for treatment. She has improved thus far on BiPAP Past Medical History Cardiac Medical History: Reports: Coronary Artery Disease, Myocardial Infarction, Hyperlipidema, Hypertension Denies: Atrial Fibrillation, Congestive Heart Failure, Peripheral Vascular Disease, Heart Murmur Pulmonary Medical History: Reports: Pneumonia - 2012 Denies: Asthma, Bronchitis, Chronic Obstructive Pulmonary Disease (COPD), Tuberculosis Neurological Medical History: Denies: Seizures Endocrine Medical History: Denies: Diabetes Mellitus Type 1, Diabetes Mellitus Type 2, Hyperthyroidism, Hypothyroidism GI Medical History: Reports: Gastroesophageal Reflux Disease Denies: Cirrhosis, Hepatitis Musculoskeltal Medical History: Reports: Arthritis Denies: Gout Skin Medical History: Denies: Eczema, Psoriasis Psychiatric Medical History: Denies: Depression Hematology: Denies: Anemia, Sickle Cell Disease, Bleeding Tendencies Infectious Medical History: Denies: HIV Past Surgical History Past Surgical History: Reports: Cardiac Catheterization, Coronary Artery Bypass Graft, Coronary Stent, Hysterectomy, Tubal Ligation Denies: Appendectomy, Section, Cholecystectomy, Gastric Bypass S urgery, Herniorrhaphy, Mastectomy, Pacemaker, Tonsillectomy Social History Information Source: [facility] Records Smoking Status: Former Smoker Cigarettes Packs Per Day: 1 Number of Years Smokin Passive smoke exposure as: Both Frequency of Alcohol Use: None Hx Recreational Drug Use: No Drugs: None Hx Prescription Drug Abuse: No Do you have pets?: No Have you had any respiratory illnesses as a child?: No Have you been exposed to any sick contacts recently?: No Have you had any recent respiratory illnesses?: No Have you travelled outside of [place] in the past 12 months?: No - Advance Directive Resuscitation Status: Do Not Intubate - Have spoken to the patient's daughter and the patient and they both want DO NOT INTUBATE. Family History Family History: Hypertension, Malignancy Parental Family History Reviewed: Yes Children Family History Reviewed: Yes Sibling(s) Family History Reviewed.: Yes Medication/Allergy Home Medications: Ascorbic Acid [Vitamin C 500 mg Tablet] 500 mg PO BID 09/29/19 Aspirin [Ecotrin 81 mg EC Tablet] 81 mg PO DAILY 09/29/19 Cranberry Conc/C/Bacill Coag [AZO Cranberry Tablet] 1 each PO DAILY 09/29/19 Cyanocobalamin (Vitamin B-12) [Vitamin B-12] 1,000 mcg PO DAILY 09/29/19 Cyclosporine 0.05% Oph Emulsio [Restasis 0.05% Opthalmic Droperette] 1 drop OU BID 09/29/19 Docusate Sodium [Colace 100 mg Capsule] 100 mg PO BID 09/29/19 Ferrous Sulfate [Feosol 325 mg Tablet] 325 mg PO DAILY 09/29/19 Isosorbide Mononitrate [Isosorbide Mononitrate ER] 120 mg PO QPM 09/29/19 Magnesium 250 mg PO DAILY 09/29/19 [place]-3 Fatty Acids/Fish Oil [[place] 3 Fish Oil Softgel] 1 each PO BID 09/29/19 Sodium Chloride [Sodium Chloride 1 Gm Tablet] 1 gm PO BID 09/29/19 Tramadol HCl [Ultram 50 mg Tablet] 50 mg PO Q12 09/29/19 Ubidecarenone [Coq-10] 100 mg PO DAILY 09/29/19 Vit A/Vit C/Vit E/Zinc/Copper [Preservision Areds Softgel] 1 each PO BID 09/29/19 Allergies/Adverse Reactions: levofloxacin [From Levaquin] Allergy (Severe, Verified 08/11/19 14:18) Diarrhea Review of Systems ROS unobtainable: Due to mental status Physical Exam Vital Signs: Temp Pulse Resp BP Pulse Ox 97.8 F 92 18 106/58 L 91 L 09/30/19 07:36 09/30/19 07:36 09/30/19 07:36 09/30/19 07:36 09/30/19 07:36 Intake & Output 09/29/19 09/30/19 10/01/19 06:59 06:59 06:59 Intake Total 75 58 Output Total 1850 175 Balance -1775 -117 Weight 80 kg General appearance: PRESENT: disheveled, mild distress, well-developed, well- nourished. ABSENT: cooperative Head exam: PRESENT: atraumatic, normocephalic Eye exam: PRESENT: conjunctiva pale. ABSENT: nystagmus, scleral icterus Mouth exam: PRESENT: dry mucosa, neck supple, tongue midline Neck exam: ABSENT: carotid bruit, full ROM, JVD, lymphadenopathy, meningismus, tenderness, thyromegaly, tracheal deviation, tracheostomy, other Respiratory exam: PRESENT: decreased breath sounds, prolonged expiratory phas, rales, rhonchi, symmetrical, tachypnea, unlabored. ABSENT: retraction, stridor Cardiovascular exam: PRESENT: RRR, +S1, +S2 Pulses: PRESENT: normal radial pulses GI/Abdominal exam: PRESENT: soft. ABSENT: guarding, mass, rebound, tenderness Extremities exam: PRESENT: pedal edema. ABSENT: calf tenderness, clubbing, joint swelling, tenderness Musculoskeletal exam: ABSENT: ambulatory, dislocation Neurological exam: PRESENT: altered Psychiatric exam: PRESENT: flat affect Skin exam: PRESENT: dry, warm Results Laboratory Results: 09/29/19 18:31 09/29/19 18:31 09/29/19 09/29/19 18:31 18:31 WBC 4.3 RBC 3.30 L Hgb 9.4 L Hct 28.6 L MCV 87 MCH 28.4 MCHC 32.7 RDW 15.7 H Plt Count 262 Sodium 128.2 L Potassium 4.9 Chloride 94 L Carbon Dioxide 27 Anion Gap 7 BUN 21 H Creatinine 1.00 Est GFR ( Amer) > 60 Glucose 101 Calcium 7.7 L Magnesium 2.8 H Total Bilirubin 0.4 AST 13 L Alkaline Phosphatase 107 Total Protein 5.3 L Albumin 2.6 L Impressions: Chest X-Ray 09/29/19 00:00 IMPRESSION: Right IJ line tip in the SVC. No pneumothorax. Assessment & Plan - Diagnosis (1) Severe pulmonary hypertension Is this a current diagnosis for this admission?: Yes Plan: No phosphodiesterase inhibitor at this time as patient is on nitrates (2) Interstitial lung disease Is this a current diagnosis for this admission?: Yes Plan: No change several etiologies can attributing to PHTN (3) Acute and chronic respiratory failure with hypoxia Is this a current diagnosis for this admission?: Yes (4) Chronic atrial fibrillation Is this a current diagnosis for this admission?: Yes Plan: As per cardiology - Time Time Spent: 30 to 50 Minutes
[2019-09-30] MEDS ORDERED: ISOSORBIDE MONONITRATE 60 MG TAB.ER.24H PO SCH (18:00)
--- NOTE | 2019-09-30 18:40 | PDOC PROGRESS REPORT ---
Subjective Progress Note for:: 09/30/19 Subjective:: Patient states she is feeling better. His leg edema has come down. She is producing good amount of urine. She denies any chest pain or discomfort. There is no PND orthopnea. There is no atrial or ventricular arrhythmias seen. There is no TIA CVA symptoms. Reason For Visit: RIGHT SIDE HEART FAILURE, PULMINARY HTN, HTN, CAD Physical Exam Vital Signs: Temp Pulse Resp BP Pulse Ox 97.6 F 112 H 18 71/43 L 83 L 09/30/19 12:16 09/30/19 18:00 09/30/19 12:16 09/30/19 18:00 09/30/19 12:16 Intake & Output 09/29/19 09/30/19 10/01/19 06:59 06:59 06:59 Intake Total 75 505 Output Total 1850 1450 Balance -1775 -945 Weight 80 kg General appearance: PRESENT: other - She is mildly obese. In no acute distress. She is well-groomed. Head exam: PRESENT: atraumatic, normocephalic Eye exam: PRESENT: EOMI, other - Today there is no conjunctival pallor. There is no scleral icterus. Ear exam: PRESENT: normal external ear exam, TM's normal bilaterally Mouth exam: PRESENT: moist, tongue midline Throat exam: PRESENT: other - There is no redness of the oropharynx. There is no exudates. Neck exam: PRESENT: other - Carotids are equal. Neck is supple. There is mild JVD present. There is no lymphadenopathy. There is no goiter. There is no accessory muscle respiration use. Respiratory exam: PRESENT: other - Breath sounds today seem to be of normal intensity. There is very few crepitant rales in the bases of interstitial fibrosis no rales of CHF. Pulses: PRESENT: normal carotid pulses, normal radial pulses, normal femoral pulses, +1 pedal pulses bilateral Vascular exam: PRESENT: normal capillary refill GI/Abdominal exam: PRESENT: other - Abdomen is soft. There is no hepatosplenomegaly. Bowel sounds are well heard. There is no tender areas mass es. Rectal exam: PRESENT: deferred Extremities exam: PRESENT: +1 edema, other - There is no DVT. There is no cyanosis or clubbing. There is no evidence of cellulitis. There is no calf tenderness. Musculoskeletal exam: PRESENT: other - There is no acute joint swelling or redness. Neurological exam: PRESENT: other - Patient is conscious awake alert oriented x3. With no focal deficits. Psychiatric exam: PRESENT: other - The patient's judgment and insight are intact her affect is normal. Results Laboratory Results: 09/29/19 18:31 09/29/19 18:31 09/29/19 09/29/19 18:31 18:31 WBC 4.3 RBC 3.30 L Hgb 9.4 L Hct 28.6 L MCV 87 MCH 28.4 MCHC 32.7 RDW 15.7 H Plt Count 262 Sodium 128.2 L Potassium 4.9 Chloride 94 L Carbon Dioxide 27 Anion Gap 7 BUN 21 H Creatinine 1.00 Est GFR ( Amer) > 60 Glucose 101 Calcium 7.7 L Magnesium 2.8 H Total Bilirubin 0.4 AST 13 L Alkaline Phosphatase 107 Total Protein 5.3 L Albumin 2.6 L Impressions: Chest X-Ray 09/29/19 00:00 IMPRESSION: Right IJ line tip in the SVC. No pneumothorax. Assessment & Plan - Diagnosis (1) Acute on chronic right ventricular systo Is this a current diagnosis for this admission?: Yes Plan: Since there is been a good response to dobutamine the dosage is been increased to 5 mcg/kg/min. The patient had a transient drop in her blood pressure to the 80s without any symptoms. After the dobutamine was increased to 5 mcg/kg/min. She continued to improve on this hence we will continue the patient on dobutamine 5 mcg/kg/min. We will cautiously watch the patient's blood pressure. (2) Severe pulmonary hypertension Is this a current diagnosis for this admission?: Yes Plan: Awaiting pulmonology input. (3) Chronic pulmonary hypertension Is this a current diagnosis for this admission?: Yes Plan: Continue current treatment. (4) Atherosclerotic heart disease of augustine coronary artery without angina pectoris Qualifiers: [place] vs. transplanted heart: augustine heart Qualified Code(s): I25.10 - Atherosclerotic heart disease of augustine coronary artery without angina pectoris Is this a current diagnosis for this admission?: Yes Plan: She has no angina. We will continue the patient's aspirin. And statin. Will decrease the patient's isosorbide mononitrate to 60 mg once a day, since the patient has no chest pain and her blood pressure is soft. (5) Benign essential hypertension Is this a current diagnosis for this admission?: Yes Plan: The patient's blood pressure is soft. Will decrease the patient's nitrates. We will but watch the patient's blood pressure very closely on IV dobutamine. (6) Interstitial lung disease Is this a current diagnosis for this admission?: Yes Plan: We will check sed rate, and CRP to see if this is active. If these are elevated then will try steroids. (7) Hx of CABG Is this a current diagnosis for this admission?: Yes Plan: This is stable. (8) Hyperlipidemia Qualifiers: Hyperlipidemia type: unspecified Qualified Code(s): E78.5 - Hyperlipidemia, unspecified Is this a current diagnosis for this admission?: Yes Plan: Continue statin. Will check lipid levels in the morning. We will also check liver function test. (9) B12 deficiency Is this a current diagnosis for this admission?: Yes Plan: Continue patient's oral B12. - Notes Notes: Discussed with the patient and the patient's significant other. The patient is making slow improvement. We will continue with current treatment. - Time Time with patient: Greater than 35 minutes Medications reviewed and adjusted accordingly: Yes Anticipated discharge: Home with Homehealth Within: Other - Will be demand with the patient's clinical response to treatment. Disposition: Patient is making slight improvement also although her prognosis very guarded in view of the interstitial fibrosis and severe pulmonary hypertension. Will follow
[2019-09-30 20:25] LABS: C DIFFICILE GDH POSITIVE (NEGATIVE)
[2019-10-01] MEDS ORDERED: BENZOCAINE/MENTHOL SORE THROAT LOZENGE BUCCAL PRN (00:50)
[2019-10-01] MEDS ORDERED: GUAIFENESIN SYRP 200 MG/10 ML UDC PO PRN (00:50)
[2019-10-01] MEDS: FUROSEMIDE INJ/PF 20 MG/2 ML SDV IV SCH ×3 (02:37→17:37)
[2019-10-01 08:47] LABS: HEMATOCRIT 23.6 % (36.0-47.0); MEAN CORPUSCULAR HEMOGLOBIN 28.2 pg (27.0-33.4); MEAN CORPUSCULAR HGB CONC 32.8 g/dL (32.0-36.0); MEAN CORPUSCULAR VOLUME 86 fl (80-97); PLATELET COUNT 242 10^3/uL (150-450); RED BLOOD COUNT 2.75 10^6/uL (3.72-5.28); RED CELL DISTRIBUTION WIDTH 15.7 % (11.5-14.0); WHITE BLOOD COUNT 3.3 10^3/uL (4.0-10.5)
[2019-10-01 09:05] LABS: ALKALINE PHOSPHATASE 76 U/L (38-126); ASPARTATE AMINO TRANSFERASE 12 U/L (14-36); BILIRUBIN,DIRECT 0.3 mg/dL (0.0-0.4); BILIRUBIN,TOTAL 0.3 mg/dL (0.2-1.3); BLOOD UREA NITROGEN 20 mg/dL (7-20); CALCIUM 7.3 mg/dL (8.4-10.2); CHOLESTEROL 113.22 mg/dL (0-200); GLUCOSE 82 mg/dL (75-110); POTASSIUM 3.9 mmol/L (3.6-5.0); TOTAL PROTEIN 4.5 g/dL (6.3-8.2); TRIGLYCERIDES 61 mg/dL (<150)
[2019-10-01 09:10] LABS: CARBON DIOXIDE 32 mmol/L (22-30); CHLORIDE 94 mmol/L (98-107)
[2019-10-01 09:17] LABS: ANION GAP 3 (5-19); DIRECT LDL 70 mg/dL (<100)
[2019-10-01 09:21] LABS: FREE T3 1.83 pg/mL (2.77-5.27); FREE T4 (FREE THYROXINE) 1.49 ng/dL (0.78-2.19)
[2019-10-01 09:30] LABS: HEMOGLOBIN 7.8 g/dL (12.0-15.5)
[2019-10-01 09:34] LABS: THYROID STIMULATING HORMONE 1.25 uIU/mL (0.47-4.68)
[2019-10-01] MEDS: DOCUSATE SODIUM 100 MG CAPSULE PO SCH ×2 (09:44→17:18)
[2019-10-01] MEDS ORDERED: NORMAL SALINE 250 ML IV PRN ×2 (09:54)
[2019-10-01] MEDS: FERROUS SULFATE 325 MG TABLET PO SCH (10:26)
[2019-10-01] MEDS: ENOXAPARIN SODIUM INJ 40 MG/0.4 ML DISP.SYRIN SUBCUT SCH (10:26)
[2019-10-01] MEDS: LISINOPRIL 5 MG TABLET PO SCH ×2 (10:27→22:11)
[2019-10-01] MEDS: ASPIRIN 81 MG TABLET, ENT COATED PO SCH (10:27)
[2019-10-01] MEDS: CYANOCOBALAMIN (VITAMIN B-12) 1,000 MCG TABLET PO SCH (10:27)
[2019-10-01] MEDS: ASCORBIC ACID 500 MG TABLET PO SCH ×2 (10:27→17:37)
[2019-10-01] MEDS: CYCLOSPORINE 0.05% OPH EMULSIO 0.4 ML DROPERETTE OU SCH ×2 (10:28→17:36)
[2019-10-01] MEDS ORDERED: ACETAMINOPHEN 325 MG TABLET PO PRN (10:50)
[2019-10-01] MEDS ORDERED: DIPHENHYDRAMINE HCL 25 MG CAPSULE PO PRN (10:51)
[2019-10-01 10:53] LABS: ABSOLUTE RETICS # 0.066 10^6/uL (0.028-0.122); RETICULOCYTE COUNT (AUTO) 2.29 % (0.66-2.85)
[2019-10-01 11:40] LABS: IRON(TIBC) 11.9 ug/dL (37-170)
[2019-10-01 16:45] LABS: ABSOLUTE EOSINOPHILS # (AUTO) 0.1 10^3/uL (0.0-0.6); ABSOLUTE LYMPHOCYTES (AUTO) 1.6 10^3/uL (0.5-4.7); ABSOLUTE MONOCYTES (AUTO) 0.5 10^3/uL (0.1-1.4); BASOPHILS % (AUTO) 0.6 % (0-2); EOSINOPHILS % (AUTO) 2.1 % (0-6); HEMATOCRIT 27.4 % (36.0-47.0); HEMOGLOBIN 9.1 g/dL (12.0-15.5); LYMPHOCYTES % (AUTO) 37.9 % (13-45); MEAN CORPUSCULAR HEMOGLOBIN 28.7 pg (27.0-33.4); MEAN CORPUSCULAR HGB CONC 33.1 g/dL (32.0-36.0); MEAN CORPUSCULAR VOLUME 87 fl (80-97); MONOCYTES % (AUTO) 12.4 % (3-13); PLATELET COUNT 247 10^3/uL (150-450); RED BLOOD COUNT 3.16 10^6/uL (3.72-5.28); TOTAL CELLS COUNTED % (AUTO) 100 %; WHITE BLOOD COUNT 4.4 10^3/uL (4.0-10.5)
[2019-10-01] MEDS: ISOSORBIDE MONONITRATE 60 MG TAB.ER.24H PO SCH (17:36)
--- NOTE | 2019-10-01 23:20 | PDOC PROGRESS REPORT ---
Subjective Progress Note for:: 10/01/19 Subjective:: Note last night the patient's blood pressure dropped into the 70s. The patient's dobutamine was stopped. The blood pressure did come up. She was also found to be anemic with a hemoglobin of 7.3. She still has some leg edema but it is improved. She denies any chest pain or discomfort. There is no shortness of breath. There is no PND orthopnea. There is no atrial or ventricular arrhythmia seen on the monitor. The patient has been restarted on dobutamine at 2.5 mcg/kg/min. The patient also was given 1 unit of packed RBCs. Anemia work- up shows that the patient is iron deficient. Will discuss with patient and transfuse iron. Later tomorrow. Note the patient's B12 and folate levels are normal. The stool occult blood is awaited. The patient has been complaining of diarrhea. C. difficile antigen is positive, but the C. difficile PCR and the PCL antibody is negative. Hence this is not C. difficile colitis. There is no TIA CVA symptoms. Reason For Visit: RIGHT SIDE HEART FAILURE, PULMINARY HTN, HTN, CAD Physical Exam Vital Signs: Temp Pulse Resp BP Pulse Ox 97.7 F 82 22 H 106/51 L 99 10/01/19 20:03 10/01/19 20:03 10/01/19 20:03 10/01/19 20:03 10/01/19 20:03 Intake & Output 09/30/19 10/01/19 10/02/19 06:59 06:59 06:59 Intake Total 75 1495 2494 Output Total 1850 3500 780 1714 Weight 80 kg 79.4 kg 79.4 kg Results Laboratory Results: 10/01/19 16:30 10/01/19 07:40 10/01/19 10/01/19 10/01/19 07:40 07:40 07:40 WBC 3.3 L RBC 2.75 L Hgb 7.8 L Hct 23.6 L MCV 86 MCH 28.2 MCHC 32.8 RDW 15.7 H Plt Count 242 Seg Neutrophils % Retic Count (auto) Sodium 128.8 L Potassium 3.9 Chloride 94 L Carbon Dioxide 32 H Anion Gap 3 L BUN 20 Creatinine 1.06 Est GFR ( Amer) > 60 Glucose 82 Calcium 7.3 L Iron TIBC % Saturation Ferritin Total Bilirubin 0.3 AST 12 L Alkaline Phosphatase 76 Total Protein 4.5 L Albumin 2.0 L Triglycerides 61 Cholesterol 113.22 LDL Cholesterol Direct 70 VLDL Cholesterol 12.0 HDL Cholesterol 35 L Vitamin B12 Folate TSH 1.25 Free T4 1.49 Free T3 pg/mL 1.83 L Blood Type Antibody Screen 10/01/19 10/01/19 10/01/19 10:20 10:20 10:20 WBC RBC Hgb Hct MCV MCH MCHC RDW Plt Count Seg Neutrophils % Retic Count (auto) 2.29 Sodium Potassium Chloride Carbon Dioxide Anion Gap BUN Creatinine Est GFR ( Amer) Glucose Calcium Iron 11.9 L TIBC 157 L % Saturation 8 Ferritin 84.30 Total Bilirubin AST Alkaline Phosphatase Total Protein Albumin Triglycerides Cholesterol LDL Cholesterol Direct VLDL Cholesterol HDL Cholesterol Vitamin B12 > 1000.0 H Folate 17.00 TSH Free T4 Free T3 pg/mL Blood Type O POSITIVE Antibody Screen NEGATIVE 10/01/19 16:30 WBC 4.4 RBC 3.16 L Hgb 9.1 L Hct 27.4 L MCV 87 MCH 28.7 MCHC 33.1 RDW 15.0 H Plt Count 247 Seg Neutrophils % 47.0 Retic Count (auto) Sodium Potassium Chloride Carbon Dioxide Anion Gap BUN Creatinine Est GFR ( Amer) Glucose Calcium Iron TIBC % Saturation Ferritin Total Bilirubin AST Alkaline Phosphatase Total Protein Albumin Triglycerides Cholesterol LDL Cholesterol Direct VLDL Cholesterol HDL Cholesterol Vitamin B12 Folate TSH Free T4 Free T3 pg/mL Blood Type Antibody Screen Impressions: Chest X-Ray 09/29/19 00:00 IMPRESSION: Right IJ line tip in the SVC. No pneumothorax. Assessment & Plan - Diagnosis (1) Acute on chronic right ventricular systo Is this a current diagnosis for this admission?: Yes Plan: Since there is been a good response to dobutamine the dosage is been increased to 5 mcg/kg/min. The patient had a transient drop in her blood pressure to the 80s without any symptoms. After the dobutamine was increased to 5 mcg/kg/min. She continued to improve on this hence we will continue the patient on dobutamine 5 mcg/kg/min. We will cautiously watch the patient's blood pressure. Note the patient's dobutamine drip was interrupted due to hypotension. This is recurred we will start the patient on lower dose of dobutamine. But we will stop the patient's Lasix. (2) Severe pulmonary hypertension Is this a current diagnosis for this admission?: Yes Plan: Continue patient on dobutamine. Continue ARB. (3) Chronic pulmonary hypertension Is this a current diagnosis for this admission?: Yes Plan: Continue current treatment. 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 transplanted heart: [place] heart Qualified Code(s): I25.10 - Atherosclerotic heart disease of [place] coronary artery without angina pectoris Is this a current diagnosis for this admission?: Yes Plan: She has no angina. We will continue the patient's aspirin. And statin. The patient's isosorbide has been decreased to 60 mg p.o. daily. (5) Benign essential hypertension Is this a current diagnosis for this admission?: Yes Plan: The patient's blood pressure is soft. Will decrease the patient's nitrates. We will but watch the patient's blood pressure very closely on IV dobutamine. (6) Interstitial lung disease Is this a current diagnosis for this admission?: Yes Plan: We will check sed rate, and CRP to see if this is active. If these are elevated then will try steroids. (7) Hx of CABG Plan: This is stable. (8) Hyperlipidemia Qualifiers: Hyperlipidemia type: unspecified Qualified Code(s): E78.5 - Hyperlipidemia, unspecified Is this a current diagnosis for this admission?: Yes Plan: Continue statin. Will check lipid levels in the morning. We will also check liver function test. (9) B12 deficiency Is this a current diagnosis for this admission?: Yes Plan: We will continue the patient on B12. B12 levels are normal. Her folate levels are also normal. (10) Diarrhea Qualifiers: Diarrhea type: unspecified type Qualified Code(s): R19.7 - Diarrhea, uns pecified Is this a current diagnosis for this admission?: Yes Plan: Seems to have slowed down. If it continues will will place the patient on Imodium for symptomatic relief. The patient's stool for WBC is negative. Her C. difficile antibody is negative. (11) Iron deficiency anemia Qualifiers: Iron deficiency anemia type: unspecified iron deficiency Qualified Code(s): D50.9 - Iron deficiency anemia, unspecified Is this a current diagnosis for this admission?: Yes Plan: The patient did receive blood transfusion 1 unit of packed RBCs. Will discuss with the patient start the patient on iron infusion. The patient is B12 and folate levels are normal. (12) Acute renal insufficiency Is this a current diagnosis for this admission?: Yes Plan: We will stop the patient's Lasix. Continue the patient on dobutamine ARB and nitrates. Avoid nephrotoxic drugs. - Time Time with patient: Greater than 35 minutes - Patient with slow improvement. But still has leg edema. Disposition: The patient making slow improvement on current treatment. We will continue the patient's dobutamine..
[2019-10-02] MEDS: DOBUTAMINE HCL/D5W 500 MG/250 ML RTUINJ IV PRN (06:38)
[2019-10-02] MEDS: CYCLOSPORINE 0.05% OPH EMULSIO 0.4 ML DROPERETTE OU SCH ×2 (09:16→17:53)
[2019-10-02] MEDS: DOCUSATE SODIUM 100 MG CAPSULE PO SCH ×2 (09:17→17:53)
[2019-10-02] MEDS: CYANOCOBALAMIN (VITAMIN B-12) 1,000 MCG TABLET PO SCH (09:17)
[2019-10-02] MEDS: ASCORBIC ACID 500 MG TABLET PO SCH ×2 (09:17→17:53)
[2019-10-02] MEDS: ASPIRIN 81 MG TABLET, ENT COATED PO SCH (09:17)
[2019-10-02] MEDS: LISINOPRIL 5 MG TABLET PO SCH ×2 (09:17→21:40)
[2019-10-02] MEDS: ENOXAPARIN SODIUM INJ 40 MG/0.4 ML DISP.SYRIN SUBCUT SCH (09:17)
[2019-10-02] MEDS: FERROUS SULFATE 325 MG TABLET PO SCH (09:17)
--- NOTE | 2019-10-02 14:11 | PDOC PROGRESS REPORT ---
Subjective Progress Note for:: 10/02/19 Subjective:: The patient denies any chest pain or shortness of breath. There is no PND orthopnea. His leg edema is improved. Note that the patient's stool occult blood is positive for Hemoccult blood. Hence probably the patient has GI loss. 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 We will address this on Friday. The patient denies any abdominal pain. There is no melena or hematemesis. Her diarrhea is resolved. The patient has no atrial or ventricular arrhythmias. The patient's anemia secondary to GI blood loss causing iron deficiency anemia. Later we will give the patient iron intravenously. We will continue the patient's dobutamine at 2.5 mcg/kg/min. Will discontinue dobutamine drip tomorrow. Reason For Visit: RIGHT SIDE HEART FAILURE, PULMINARY HTN, HTN, CAD Physical Exam Vital Signs: Temp Pulse Resp BP Pulse Ox 97.4 F 77 17 133/46 H 100 10/02/19 11:49 10/02/19 13:00 10/02/19 11:49 10/02/19 13:00 10/02/19 11:49 Intake & Output 10/01/19 10/02/19 10/03/19 06:59 06:59 06:59 Intake Total 1495 2684 620 Output Total 3500 1880 300 804 320 Weight 79.4 kg 80.8 kg General appearance: PRESENT: no acute distress, other - She is mildly obese. Well-groomed. Head exam: PRESENT: atraumatic, normocephalic Eye exam: PRESENT: conjunctiva pink, EOMI, PERRLA, other - There is no scleral icterus. Ear exam: PRESENT: normal external ear exam, TM's normal bilaterally Mouth exam: PRESENT: moist, neck supple, tongue midline Throat exam: PRESENT: other - There is no exudates. There is no inflammation of the oropharynx. Neck exam: PRESENT: other - Neck is supple. There is no carotid bruits. There is no goiter. There is no lymphadenopathy. There is no accessory muscle respiration use. Trachea central. Respiratory exam: PRESENT: other - There is harsh breath sounds. Few crepitant lines in the bases. No rales of CHF. No rhonchi or wheezing. Cardiovascular exam: PRESENT: other - S1-S2 is heard. S1 is of normal intensity. There is no S3 gallop. There is no S4 gallop. Systolic murmur left sternal border and the apex there is no rub. GI/Abdominal exam: PRESENT: normal bowel sounds - There is no hepatosplenomegaly. Bowel sounds are well heard. There is no rebound guarding or rigidity., soft Rectal exam: PRESENT: deferred Musculoskeletal exam: PRESENT: full ROM, normal inspection Neurological exam: PRESENT: other - The patient is conscious awake alert oriented x3 with no focal deficits. Psychiatric exam: PRESENT: other - The patient judgment and insight are intact her affect is normal. Skin exam: PRESENT: other - Skin is warm. There is no cyanosis or clubbing. There is no petechia or ecchymosis. There is no skin rashes or skin lesions. Results Laboratory Results: 10/01/19 16:30 10/01/19 07:40 10/01/19 10/02/19 16:30 11:16 WBC 4.4 RBC 3.16 L Hgb 9.1 L Hct 27.4 L MCV 87 MCH 28.7 MCHC 33.1 RDW 15.0 H Plt Count 247 Seg Neutrophils % 47.0 Stool Occult Blood POSITIVE 09/30/19 00:25 Catheterized Urine Urine Culture - Final Escherichia Coli Impressions: Chest X-Ray 09/29/19 00:00 IMPRESSION: Right IJ line tip in the SVC. No pneumothorax. Assessment & Plan - Diagnosis (1) Acute on chronic right ventricular systo Is this a current diagnosis for this admission?: Yes Plan: Since there is been a good response to dobutamine the dosage is been increased to 5 mcg/kg/min. The patient had a transient drop in her blood pressure to the 80s without any symptoms. After the dobutamine was increased to 5 mcg/kg/min. She continued to improve on this hence we will continue the patient on dobutamin e 5 mcg/kg/min. We will cautiously watch the patient's blood pressure. Note the patient's dobutamine drip was interrupted due to hypotension. This is recurred we will start the patient on lower dose of dobutamine. But we will stop the patient's Lasix. (2) Severe pulmonary hypertension Is this a current diagnosis for this admission?: Yes Plan: Continue patient on dobutamine. Continue ARB. (3) Chronic pulmonary hypertension Is this a current diagnosis for this admission?: Yes Plan: Continue current treatment. 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 transplanted heart: [place] heart Qualified Code(s): I25.10 - Atherosclerotic heart disease of [place] coronary artery without angina pectoris Is this a current diagnosis for this admission?: Yes Plan: She has no angina. We will continue the patient's aspirin. And statin. The patient's isosorbide has been decreased to 60 mg p.o. daily. Note with the decrease the patient's isosorbide dosage to 60 mg p.o. daily the patient has no anginal symptoms. She had no anginal symptoms even with a hemoglobin dropped to 7.8. Hence there is no significant coronary artery lesions by inference. (5) Benign essential hypertension Is this a current diagnosis for this admission?: Yes Plan: The patient's blood pressure is soft. Will decrease the patient's nitrates. We will but watch the patient's blood pressure very closely on IV dobutamine. (6) Interstitial lung disease Is this a current diagnosis for this admission?: Yes Plan: We will check sed rate, and CRP to see if this is active. If these are elevated then will try steroids. (7) Hx of CABG Is this a current diagnosis for this admission?: Yes Plan: This is stable. (8) Hyperlipidemia Qualifiers: Hyperlipidemia type: unspecified Qualified Code(s): E78.5 - Hyperlipidemia, unspecified Is this a current diagnosis for this admission?: Yes Plan: Continue statin. Will check lipid levels in the morning. We will also check liver function test. (9) B12 deficiency Is this a current diagnosis for this admission?: Yes Plan: We will continue the patient on B12. B12 levels are normal. Her folate levels are also normal. (10) Diarrhea Qualifiers: Diarrhea type: unspecified type Qualified Code(s): R19.7 - Diarrhea, unspecified Is this a current diagnosis for this admission?: Yes Plan: Seems to have slowed down. If it continues will will place the patient on Imodium for symptomatic relief. The patient's stool for WBC is negative. Her C. difficile antibody is negative.. This seems to have resolved. (11) Iron deficiency anemia Qualifiers: Iron deficiency anemia type: unspecified iron deficiency Qualified Code(s): D50.9 - Iron deficiency anemia, unspecified Is this a current diagnosis for this admission?: Yes Plan: The patient did receive blood transfusion 1 unit of packed RBCs. Will discuss with the patient start the patient on iron infusion. The patient is B12 and folate levels are normal. The patient's iron levels are low. Later we will give the patient iron infusion. The patient's stool is positive for Hemoccult. Later would get a GI work-up to see the cause of the patient's anemia. (12) Acute renal insufficiency Is this a current diagnosis for this admission?: Yes Plan: We will stop the patient's Lasix. Continue the patient on dobutamine ARB and nitrates. Avoid nephrotoxic drugs. The patient's GFR is improved to 56 from 49. Hence continue holding Lasix. Part of the increased BUN/creatinine secondary to blood in the GI tract. - Notes Notes: Patient with slow improvement. Will continue current treatment will. We will see if we can discontinue the patient's dobutamine infusion tomorrow. - Time Time with patient: Greater than 35 minutes Anticipated discharge: Home with Homehealth - We will see if we can send the patient to home with home health versus admission to [facility] facility such as [place] from which she came. We discussed with the patient and patient's family. Medical decision making is of moderate complexity.
[2019-10-02 14:37] LABS: ABSOLUTE EOSINOPHILS # (AUTO) 0.1 10^3/uL (0.0-0.6); ABSOLUTE LYMPHOCYTES (AUTO) 1.2 10^3/uL (0.5-4.7); ABSOLUTE MONOCYTES (AUTO) 0.6 10^3/uL (0.1-1.4); ABSOLUTE NEUT (AUTO) 3.9 10^3/uL (1.7-8.2); BASOPHILS % (AUTO) 0.3 % (0-2); EOSINOPHILS % (AUTO) 0.9 % (0-6); HEMATOCRIT 29.6 % (36.0-47.0); MEAN CORPUSCULAR HGB CONC 33.6 g/dL (32.0-36.0); MEAN CORPUSCULAR VOLUME 86 fl (80-97); MONOCYTES % (AUTO) 10.1 % (3-13); PLATELET COUNT 241 10^3/uL (150-450); RED BLOOD COUNT 3.43 10^6/uL (3.72-5.28); RED CELL DISTRIBUTION WIDTH 15.3 % (11.5-14.0); SEGMENTED NEUTROPHILS % (AUTO) 67.7 % (42-78); TOTAL CELLS COUNTED % (AUTO) 100 %; WHITE BLOOD COUNT 5.8 10^3/uL (4.0-10.5)
[2019-10-02 14:55] LABS: ANION GAP 7 (5-19); BLOOD UREA NITROGEN 22 mg/dL (7-20); C-REACTIVE PROTEIN 49.7 mg/L (<10.0); CALCIUM 7.6 mg/dL (8.4-10.2); CARBON DIOXIDE 28 mmol/L (22-30); CHLORIDE 93 mmol/L (98-107); GLUCOSE 125 mg/dL (75-110); POTASSIUM 4.2 mmol/L (3.6-5.0)
[2019-10-02 15:39] LABS: ERYTHROCYTE SEDIMENTATION RATE 22 mm/hr (0-30)
[2019-10-02] MEDS: ISOSORBIDE MONONITRATE 60 MG TAB.ER.24H PO SCH (17:53)
[2019-10-03] MEDS: PANTOPRAZOLE SODIUM 20 MG TABLET.DR PO SCH (06:33)
[2019-10-03] MEDS: ASPIRIN 81 MG TABLET, ENT COATED PO SCH (10:04)
[2019-10-03] MEDS: ASCORBIC ACID 500 MG TABLET PO SCH ×2 (10:04→17:46)
[2019-10-03] MEDS: DOCUSATE SODIUM 100 MG CAPSULE PO SCH ×2 (10:04→17:47)
[2019-10-03] MEDS: FERROUS SULFATE 325 MG TABLET PO SCH (10:04)
[2019-10-03] MEDS: CYANOCOBALAMIN (VITAMIN B-12) 1,000 MCG TABLET PO SCH (10:04)
[2019-10-03] MEDS: LISINOPRIL 5 MG TABLET PO SCH ×2 (10:04→21:47)
[2019-10-03] MEDS: CYCLOSPORINE 0.05% OPH EMULSIO 0.4 ML DROPERETTE OU SCH ×2 (10:05→17:46)
[2019-10-03] MEDS: ENOXAPARIN SODIUM INJ 40 MG/0.4 ML DISP.SYRIN SUBCUT SCH (10:09)
[2019-10-03 13:39] LABS: HEMATOCRIT 32.3 % (36.0-47.0); HEMOGLOBIN 10.7 g/dL (12.0-15.5); MEAN CORPUSCULAR HEMOGLOBIN 28.8 pg (27.0-33.4); MEAN CORPUSCULAR HGB CONC 33.2 g/dL (32.0-36.0); MEAN CORPUSCULAR VOLUME 87 fl (80-97); PLATELET COUNT 309 10^3/uL (150-450); RED BLOOD COUNT 3.72 10^6/uL (3.72-5.28); RED CELL DISTRIBUTION WIDTH 15.7 % (11.5-14.0); WHITE BLOOD COUNT 6.3 10^3/uL (4.0-10.5)
[2019-10-03 13:56] LABS: ALBUMIN 2.5 g/dL (3.5-5.0); ALKALINE PHOSPHATASE 96 U/L (38-126); ANION GAP 7 (5-19); ASPARTATE AMINO TRANSFERASE 15 U/L (14-36); BILIRUBIN,TOTAL 0.3 mg/dL (0.2-1.3); BLOOD UREA NITROGEN 22 mg/dL (7-20); CALCIUM 8.3 mg/dL (8.4-10.2); CARBON DIOXIDE 26 mmol/L (22-30); CHLORIDE 97 mmol/L (98-107); GLUCOSE 160 mg/dL (75-110); POTASSIUM 4.2 mmol/L (3.6-5.0); TOTAL PROTEIN 5.4 g/dL (6.3-8.2)
[2019-10-03] MEDS: ISOSORBIDE MONONITRATE 60 MG TAB.ER.24H PO SCH (17:46)
--- NOTE | 2019-10-03 18:59 | PDOC PROGRESS REPORT ---
Subjective Progress Note for:: 10/03/19 Subjective:: Patient denies any chest pain or discomfort. There is no shortness of breath. There is no nausea vomiting. There is no abdominal pain. There is no PND orthopnea. Her leg edema is much improved and there is only trace leg edema. Her hemoglobin is stable and is come up to 10.7. She has no further diarrhea. There is no TIA CVA symptoms. There is no atrial or ventricular arrhythmia seen on the monitor. Physical therapy has evaluated the patient and started physical therapy and she walked only a few steps. Reason For Visit: RIGHT SIDE HEART FAILURE, PULMINARY HTN, HTN, CAD Physical Exam Vital Signs: Temp Pulse Resp BP Pulse Ox 98.0 F 82 17 140/57 H 99 10/03/19 15:15 10/03/19 18:00 10/03/19 15:15 10/03/19 18:00 10/03/19 15:15 Intake & Output 10/02/19 10/03/19 10/04/19 06:59 06:59 06:59 Intake Total 2684 770 360 Output Total 1880 1475 200 Balance 804 -705 160 Weight 80.8 kg 78.2 kg General appearance: PRESENT: no acute distress, cooperative, other - She is mildly obese in no acute distress. She is well-groomed. Head exam: PRESENT: atraumatic, normocephalic Eye exam: PRESENT: conjunctiva pink, EOMI, PERRLA, other - There is no scleral icterus. Ear exam: PRESENT: normal external ear exam, TM's normal bilaterally Mouth exam: PRESENT: moist, neck supple - There is no JVD. Carotids are equal there is no bruits. There is no lymphadenopathy. There is no goiter. There is accessory muscles of respiration use. Trachea central., tongue midline Throat exam: PRESENT: other - There is no redness of the oropharynx. There is no exudates. Neck exam: PRESENT: other - Trachea central. There is no lymphadenopathy. Respiratory exam: PRESENT: other - There are harsh breath sounds bilaterally. And a few scattered crepitant rales in the bases. No rales of CHF. Cardiovascular exam: PRESENT: other - S1-S2 is heard. Systolic murmur left sternal border and the apex. There is no rub. Pulses: PRESENT: other - Peripheral pulses show femorals are palpable. There is no femoral bruits. Leg pulses are slightly diminished. There is trace pedal edema. Vascular exam: PRESENT: normal capillary refill, other - There is no cyanosis or clubbing. GI/Abdominal exam: PRESENT: other - Abdomen is soft. There is no he patosplenomegaly. Bowel sounds are well heard. Rectal exam: PRESENT: deferred Extremities exam: PRESENT: other - There is trace pedal edema. There is no DVT or cellulitis. There is no calf tenderness. There is no cyanosis or clubbing. Neurological exam: PRESENT: other - The patient is conscious awake alert oriented x3 with no focal deficits. Psychiatric exam: PRESENT: other - The patient judgment insight are intact her affect is normal. Skin exam: PRESENT: other - Skin is warm. There is no ecchymosis or or petechiae. There is no skin lesions or skin rashes. Results Laboratory Results: 10/03/19 13:25 10/03/19 13:25 10/03/19 10/03/19 13:25 13:25 WBC 6.3 RBC 3.72 Hgb 10.7 L Hct 32.3 L MCV 87 MCH 28.8 MCHC 33.2 RDW 15.7 H Plt Count 309 Sodium 130.0 L Potassium 4.2 Chloride 97 L Carbon Dioxide 26 Anion Gap 7 BUN 22 H Creatinine 1.07 Est GFR ( Amer) 59 L Glucose 160 H Calcium 8.3 L Total Bilirubin 0.3 AST 15 Alkaline Phosphatase 96 Total Protein 5.4 L Albumin 2.5 L Impressions: Chest X-Ray 09/29/19 00:00 IMPRESSION: Right IJ line tip in the SVC. No pneumothorax. Assessment & Plan - Diagnosis (1) Acute on chronic right ventricular systo Is this a current diagnosis for this admission?: Yes Plan: Since there is been a good response to dobutamine the dosage is been increased to 5 mcg/kg/min. The patient had a transient drop in her blood pressure to the 80s without any symptoms. After the dobutamine was increased to 5 mcg/kg/min. She continued to improve on this hence we will continue the patient on dobutamine 5 mcg/kg/min. We will cautiously watch the patient's blood pressure. Note the patient's dobutamine drip was interrupted due to hypotension. This is recurred we will start the patient on lower dose of dobutamine. But we will stop the patient's Lasix. We will discontinue the patient's dobutamine tomorrow. (2) Severe pulmonary hypertension Is this a current diagnosis for this admission?: Yes Plan: Continue patient on dobutamine. Continue ARB. (3) Chronic pulmonary hypertension Is this a current diagnosis for this admission?: Yes Plan: Continue current treatment. 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 transplanted heart: [place] heart Qualified Code(s): I25.10 - Atherosclerotic heart disease of [place] coronary artery without angina pectoris Is this a current diagnosis for this admission?: Yes Plan: She has no angina. We will continue the patient's aspirin. And statin. The patient's isosorbide has been decreased to 60 mg p.o. daily. Note with the decrease the patient's isosorbide dosage to 60 mg p.o. daily the patient has no anginal symptoms. She had no anginal symptoms even with a hemoglobin dropped to 7.8. Hence there is no significant coronary artery lesions by inference. (5) Benign essential hypertension Is this a current diagnosis for this admission?: Yes Plan: The patient's blood pressure is soft. Will decrease the patient's nitrates. We will but watch the patient's blood pressure very closely on IV dobutamine. (6) Interstitial lung disease Is this a current diagnosis for this admission?: Yes Plan: We will check sed rate, and CRP to see if this is active. If these are elevated then will try steroids. (7) Hx of CABG Is this a current diagnosis for this admission?: Yes Plan: This is stable. (8) Hyperlipidemia Qualifiers: Hyperlipidemia type: unspecified Qualified Code(s): E78.5 - Hyperlipidemia, unspecified Is this a current diagnosis for this admission?: Yes Plan: Continue statin. Will check lipid levels in the morning. We will also check liver function test. (9) B12 deficiency Is this a current diagnosis for this admission?: Yes Plan: We will continue the patient on B12. B12 levels are normal. Her folate levels are also normal. (10) Diarrhea Qualifiers: Diarrhea type: unspecified type Qualified Code(s): R19.7 - Diarrhea, unspecified Is this a current diagnosis for this admission?: No Plan: The diarrhea has resolved. (11) Iron deficiency anemia Qualifiers: Iron deficiency anemia type: unspecified iron deficiency Qualified Code(s): D50.9 - Iron deficiency anemia, unspecified Is this a current diagnosis for this admission?: Yes Plan: The patient did receive blood transfusion 1 unit of packed RBCs. Will discuss with the patient start the patient on iron infusion. The patient is B12 and folate levels are normal. The patient's iron levels are low. Later we will give the patient iron infusion. The patient's stool is positive for Hemoccult. Later would get a GI work-up to see the cause of the patient's anemia. (12) Acute renal insufficiency Is this a current diagnosis for this admission?: Yes Plan: There is further deterioration in the patient's renal function. Will continue to observe. Avoid nephrotoxic drugs. - Notes Notes: The patient is making gradual improvement. Will get the patient on physical therapy. We will then decide whether the patient needs home health with the patient going home or transfer back to [facility] facility. - Time Time with patient: Greater than 35 minutes Within: Other - Depending on the patient's improvement. The patient also needs anemia work-up in the form of a GI work-up. The patient as. To be at least here for another 48 to 72 hours. Then will make a determination as a as to whether the patient will go home with home health or if she has to go back to [facility] facility such as [facility]. Medical decision making is of moderate complexity.
[2019-10-03] MEDS: DOBUTAMINE HCL/D5W 500 MG/250 ML RTUINJ IV PRN (21:47)
[2019-10-04] MEDS: PANTOPRAZOLE SODIUM 20 MG TABLET.DR PO SCH (06:15)
[2019-10-04] MEDS: DOCUSATE SODIUM 100 MG CAPSULE PO SCH ×2 (09:52→18:17)
[2019-10-04] MEDS: ASPIRIN 81 MG TABLET, ENT COATED PO SCH (09:56)
[2019-10-04] MEDS: ENOXAPARIN SODIUM INJ 40 MG/0.4 ML DISP.SYRIN SUBCUT SCH (09:57)
[2019-10-04] MEDS: LISINOPRIL 5 MG TABLET PO SCH ×2 (09:57→21:35)
[2019-10-04] MEDS: ASCORBIC ACID 500 MG TABLET PO SCH ×2 (09:57→18:23)
[2019-10-04] MEDS: CYANOCOBALAMIN (VITAMIN B-12) 1,000 MCG TABLET PO SCH (09:57)
[2019-10-04] MEDS: FERROUS SULFATE 325 MG TABLET PO SCH (09:57)
[2019-10-04] MEDS: CYCLOSPORINE 0.05% OPH EMULSIO 0.4 ML DROPERETTE OU SCH ×2 (10:00→18:25)
[2019-10-04] MEDS: FUROSEMIDE 20 MG TABLET PO SCH (13:18)
[2019-10-04] MEDS ORDERED: FERRIC CARBOXYMALTOSE INJ 750 MG/15 ML VIAL IV ONE (15:45)
[2019-10-04] MEDS ORDERED: ADENOSINE INJ/PF 6 MG/2 ML SDV IV ONE ×2 (16:27→16:35)
[2019-10-04] MEDS ORDERED: DILTIAZEM HCL/D5W 125 MG/125 ML RTUINJ IV ONE (16:43)
[2019-10-04] MEDS ORDERED: DILTIAZEM HCL/D5W 125 MG/125 ML RTUINJ IV PRN (16:46)
[2019-10-04] MEDS ORDERED: FERRIC CARBOXYMALTOSE 750 MG in NORMAL SALINE 250 ML IV ONE (17:00)
--- NOTE | 2019-10-04 17:47 | EKG REPORT ---
SEVERITY:- ABNORMAL ECG - SINUS TACHYCARDIA PROBABLE INFERIOR INFARCT, AGE INDETERMINATE NONSPECIFIC ANTERIOR ST-T CHANGES : Confirmed by: Brennen Hancock MD 04-Oct-2019 17:47:15
[2019-10-04] MEDS: ISOSORBIDE MONONITRATE 60 MG TAB.ER.24H PO SCH (18:25)
[2019-10-05] MEDS: PANTOPRAZOLE SODIUM 20 MG TABLET.DR PO SCH (06:10)
[2019-10-05] MEDS: DILTIAZEM HCL 120 MG CAP.SR.24H PO SCH ×2 (10:31→21:37)
[2019-10-05] MEDS: ASCORBIC ACID 500 MG TABLET PO SCH ×2 (10:31→17:14)
[2019-10-05] MEDS: LISINOPRIL 5 MG TABLET PO SCH ×2 (10:31→21:37)
[2019-10-05] MEDS: FUROSEMIDE 20 MG TABLET PO SCH (10:31)
[2019-10-05] MEDS: CYANOCOBALAMIN (VITAMIN B-12) 1,000 MCG TABLET PO SCH (10:31)
[2019-10-05] MEDS: ENOXAPARIN SODIUM INJ 40 MG/0.4 ML DISP.SYRIN SUBCUT SCH (10:31)
[2019-10-05] MEDS: ASPIRIN 81 MG TABLET, ENT COATED PO SCH (10:32)
[2019-10-05] MEDS: DOCUSATE SODIUM 100 MG CAPSULE PO SCH ×2 (10:32→17:14)
[2019-10-05] MEDS: CYCLOSPORINE 0.05% OPH EMULSIO 0.4 ML DROPERETTE OU SCH ×2 (13:05→17:14)
[2019-10-05] MEDS: ISOSORBIDE MONONITRATE 60 MG TAB.ER.24H PO SCH (17:14)
--- NOTE | 2019-10-05 18:52 | PDOC CONSULTATION ---
Consultation Consult Date: 10/05/19 Provider Consulted: SADE STEPHENS History of Present Illness Admission Date/PCP: 09[facility]29[facility]19 17[facility] of Present Illness: SUNITA BALLESTEROS is a 84 year old female Who was admitted with acute on chronic systolic heart failure on 09/29/2019. Consultation was requested for anemia and heme-positive stool. I reviewed her hemoglobin from as far back as 2011 and she has had a chronic anemia. Hemoglobin has ranged from 6 to a maximum of 10 after transfusion. Her average has been about 9. On admission her hemoglobin was 9.2 and about 9 days later it was down to 7.8. After 1 unit of transfusion it has stayed above 9. She was transfused in September 2018 and also during this admission. She denies any rectal bleeding though her stool has been dark. She has been on iron supplements for years. She denies abdominal pain. She was evaluated by Dr. Dennison in September 2018 and had an EGD and limited colonoscopy up to 45 cm. There was near complete obstruction in the sigmoid colon and this was further evaluated by CT of the abdomen and pelvis with rectal contrast that was unremarkable. She likely had a sharp tone in her sigmoid colon. Her EGD only showed gastritis. She was admitted to the hospital in July 2019 with abdominal pain nausea and vomiting and a CAT scan did show evidence of colitis involving the transverse colon down to the sigmoid. She has significant heart disease and evidence of atherosclerosis and I suspect that illness was from ischemic colitis. Past Medical History Cardiac Medical History: Reports: Coronary Artery Disease, Myocardial Infarction, Hyperlipidema, Hypertension Denies: Atrial Fibrillation, Congestive Heart Failure, Peripheral Vascular Disease, Heart Murmur Pulmonary Medical History: Reports: Pneumonia - 2011 Denies: Asthma, Bronchitis, Chronic Obstructive Pulmonary Disease (COPD), Tuberculosis Neurological Medical History: Denies: Seizures Endocrine Medical History: Denies: Diabetes Mellitus Type 1, Diabetes Mellitus Type 2, Hyperthyroidism, Hypothyroidism GI Medical History: Reports: Gastroesophageal Reflux Disease Denies: Cirrhosis, Hepatitis Musculoskeltal Medical History: Reports: Arthritis Denies: Gout Skin Medical History: Denies: Eczema, Psoriasis Psychiatric Medical History: Denies: Depression Hematology: Denies: Anemia, Sickle Cell Disease, Bleeding Tendencies Infectious Medical History: Denies: HIV Past Surgical History Past Surgical History: Reports: Cardiac Catheterization, Coronary Artery Bypass Graft, Coronary Stent, Hysterectomy, Tubal Ligation Denies: Appendectomy, Section, Cholecystectomy, Gastric Bypass Surgery, Herniorrhaphy, Mastectomy, Pacemaker, Tonsillectomy Social History Smoking Status: Former Smoker Cigarettes Packs Per Day: 1 Electronic Cigarette use?: No Number of Years Smokin Frequency of Alcohol Use: None Hx Recreational Drug Use: No Drugs: None Hx Prescription Drug Abuse: No - Advance Directive Resuscitation Status: Do Not Intubate - Have spoken to the patient's daughter and the patient and they both want DO NOT INTUBATE. Family History Family History: Hypertension, Malignancy Parental Family History Reviewed: No Children Family History Reviewed: NA Sibling(s) Family History Reviewed.: NA Medication/Allergy Home Medications: Ascorbic Acid [Vitamin C 500 mg Tablet] 500 mg PO BID 09/29/19 Aspirin [Ecotrin 81 mg EC Tablet] 81 mg PO DAILY 09/29/19 Cranberry Conc/C/Bacill Coag [AZO Cranberry Tablet] 1 each PO DAILY 09/29/19 Cyanocobalamin (Vitamin B-12) [Vitamin B-12] 1,000 mcg PO DAILY 09/29/19 Cyclosporine 0.05% Oph Emulsio [Restasis 0.05% Opthalmic Droperette] 1 drop OU BID 09/29/19 Docusate Sodium [Colace 100 mg Capsule] 100 mg PO BID 09/29/19 Ferrous Sulfate [Feosol 325 mg Tablet] 325 mg PO DAILY 09/29/19 Isosorbide Mononitrate [Isosorbide Mononitrate ER] 120 mg PO QPM 09/29/19 Magnesium 250 mg PO DAILY 09/29/19 Olympia-3 Fatty Acids/Fish Oil [[place]ia 3 Fish Oil Softgel] 1 each PO BID 09/29/19 Sodium Chloride [Sodium Chloride 1 Gm Tablet] 1 gm PO BID 09/29/19 Tramadol HCl [Ultram 50 mg Tablet] 50 mg PO Q12 09/29/19 Ubidecarenone [Coq-10] 100 mg PO DAILY 09/29/19 Vit A/Vit C/Vit E/Zinc/Copper [Preservision Areds Softgel] 1 each PO BID 09/29/19 Allergies/Adverse Reactions: levofloxacin [From Levaquin] Allergy (Severe, Verified 08/11/19 14:18) Diarrhea Review of Systems All systems: reviewed and no additional remarkable complaints except as stated Physical Exam Vital Signs: Temp Pulse Resp BP Pulse Ox 97.3 F 68 16 125/61 99 10/05/19 15:33 10/05/19 15:33 10/05/19 15:33 10/05/19 15:33 10/05/19 15:33 Intake & Output 10/04/19 10/05/19 10/06/19 06:59 06:59 06:59 Intake Total 835 905 942 Output Total 900 1800 770 Balance -65 -895 172 Weight 79.9 kg 82.2 kg Exam: General: Patient is alert and looks well. HEENT: There is pallor but no jaundice. PERRLA. Oropharynx normal Respiratory: She has kyphosis. No respiratory distress. Chest wall palpitation was unremarkable. Breath sounds were normal Cardiovascular: Heart sounds 1 and 2 heard Abdominal: Not distended. Soft and nontender. Liver and spleen not palpable. No ascites demonstrated. Bowel sounds active. Rectal examination was deferred. Extremities: Mild bilateral edema Neurological: Alert and oriented x4. Grossly nonfocal. Normal speech Skin: No significant rash Psychological: Normal affect Results Laboratory Results: 10/03/19 13:25 10/03/19 13:25 Impressions: Chest X-Ray 09/29/19 00:00 IMPRESSION: Right IJ line tip in the SVC. No pneumothorax. Assessment & Plan - Diagnosis (1) Anemia Qualifiers: Anemia type: other cause Is this a current diagnosis for this admission?: Yes Plan: She has had anemia for many years and I believe this is anemia of chronic disease. She has no evidence of acute bleeding at this time though her stool is positive for occult blood. Her EGD 1 year ago was unremarkable but she only had a limited colonoscopy. I would consider repeating her EGD and colonoscopy but this will have to wait considering her recent heart failure. Procedures could be done as outpatient unless there is evidence for acute bleeding. (3) Acute on chronic right ventricular systo Is this a current diagnosis for this admission?: Yes (4) Chronic pulmonary hypertension Is this a current diagnosis for this admission?: Yes
--- NOTE | 2019-10-05 19:34 | PDOC PROGRESS REPORT ---
Subjective Progress Note for:: 10/05/19 Subjective:: The patient's SVT has not recurred. Her leg edema is only trace. She denies any chest pain or discomfort. There is no PND orthopnea. We will discontinue the patient's Cardizem drip and start the patient on oral Cardizem. Await GI consult. There is no evidence of acute active GI bleed. The patient did receive iron infusion yesterday. There is no TIA CVA symptoms. The patient denies any chest pain or discomfort. There is no ventricular arrhythmia seen on the monitor. Reason For Visit: RIGHT SIDE HEART FAILURE, PULMINARY HTN, HTN, CAD Physical Exam Vital Signs: Temp Pulse Resp BP Pulse Ox 97.3 F 68 16 125/61 99 10/05/19 15:33 10/05/19 15:33 10/05/19 15:33 10/05/19 15:33 10/05/19 15:33 Intake & Output 10/04/19 10/05/19 10/06/19 06:59 06:59 06:59 Intake Total 835 905 942 Output Total 900 1800 770 Balance -65 -895 172 Weight 79.9 kg 82.2 kg Exam: The patient is mildly obese. She is well-groomed. In no acute distress. Head exam: PRESENT: atraumatic, normocephalic Eye exam: PRESENT: conjunctiva pink, EOMI, PERRLA Ear exam: PRESENT: normal external ear exam, TM's normal bilaterally Mouth exam: PRESENT: moist, neck supple, tongue midline Throat exam: PRESENT: other - There is no redness of the oropharynx. There is no exudates. Neck exam: PRESENT: other - Neck is supple. There is no JVD. Carotids are equal there is no bruit. There is no lymphadenopathy. There is no accessory muscle respiration use. Respiratory exam: PRESENT: other - Shows a few crepitant rales in the bases. There is no rales of CHF. There is no rhonchi or wheezing. Cardiovascular exam: PRESENT: other - S1-S2 is heard. S1 is of normal intensity. There is no S3 gallop. There is no S4 gallop. There is systolic murmur in the left sternal border and the apex. There is no rub Pulses: PRESENT: normal carotid pulses, normal radial pulses, normal femoral pulses, +1 pedal pulses bilateral Vascular exam: PRESENT: normal capillary refill GI/Abdominal exam: PRESENT: other - Abdomen soft. There is no hepatosplenomegaly. Bowel sounds are well heard. There is no tender areas of masses. Rectal exam: PRESENT: deferred Extremities exam: PRESENT: other - There is trace pedal edema bilaterally. There is no cyanosis or clubbing. There is no DVT or cellulitis. Musculoskeletal exam: PRESENT: full ROM, normal inspection Neurological exam: PRESENT: other - The patient is conscious awake alert oriented x3 with no focal deficits. Psychiatric exam: PRESENT: other - The patient judgment site are intact her affect is normal. Results Laboratory Results: 10/03/19 13:25 10/03/19 13:25 Impressions: Chest X-Ray 09/29/19 00:00 IMPRESSION: Right IJ line tip in the SVC. No pneumothorax. Assessment & Plan - Diagnosis (1) Acute on chronic right ventricular systo Is this a current diagnosis for this admission?: Yes Plan: The patient is off the dopamine putamina drip. We will start the patient on Cardizem CD 120 mg p.o. twice daily which will help in the pulmonary hypertension. (2) Severe pulmonary hypertension Is this a current diagnosis for this admission?: Yes (3) Chronic pulmonary hypertension Is this a current diagnosis for this admission?: Yes Plan: Continue current treatment. (4) Atherosclerotic heart disease of [place] coronary artery without angina pectoris Qualifiers: [place] vs. transplanted heart: [place] heart Qualified Code(s): I25.10 - Atherosclerotic heart disease of [place] coronary artery without angina pectoris Is this a current diagnosis for this admission?: Yes Plan: She has no angina. We will continue the patient's aspirin. And statin. The patient's isosorbide has been decreased to 60 mg p.o. daily. Note with the decrease the patient's isosorbide dosage to 60 mg p.o. daily the patient has no anginal symptoms. She had no anginal symptoms even with a hemoglobin dropped to 7.8. Hence there is no significant coronary artery lesions by inference. (5) Benign essential hypertension Is this a current diagnosis for this admission?: Yes Plan: The patient's blood pressure is soft. Will decrease the patient's nitrates. We will but watch the patient's blood pressure very closely on IV dobutamine. (6) Interstitial lung disease Is this a current diagnosis for this admission?: Yes Plan: We will check sed rate, and CRP to see if this is active. If these are elevated then will try steroids. (7) Hx of CABG Is this a current diagnosis for this admission?: Yes Plan: This is stable. (8) Hyperlipidemia Qualifiers: Hyperlipidemia type: unspecified Qualified Code(s): E78.5 - Hyperlipidemia, unspecified Is this a current diagnosis for this admission?: Yes Plan: Continue statin. Will check lipid levels in the morning. We will also check liver function test. (9) B12 deficiency Is this a current diagnosis for this admission?: Yes Plan: We will continue the patient on B12. B12 levels are normal. Her folate levels are also normal. (10) Diarrhea Qualifiers: Diarrhea type: unspecified type Qualified Code(s): R19.7 - Diarrhea, unspecified Is this a current diagnosis for this admission?: No Plan: The diarrhea has resolved. (11) Iron deficiency anemia Qualifiers: Iron deficiency anemia type: unspecified iron deficiency Qualified Code(s): D50.9 - Iron deficiency anemia, unspecified Is this a current diagnosis for this admission?: Yes Plan: The patient did receive blood transfusion 1 unit of packed RBCs earlier in the admission. The patient did receive iron infusion yesterday. We will check absolute reticulocyte count tomorrow (12) Acute renal insufficiency Is this a current diagnosis for this admission?: Yes Plan: There is further deterioration in the patient's renal function. Will continue to observe. Avoid nephrotoxic drugs. (13) SVT (supraventricular tachycardia) Is this a current diagnosis for this admission?: Yes Plan: The patient converted to sinus rhythm with IV adenosine. She was subsequently started on Cardizem drip at 2.5 mics milligrams per hour. We will stop the Cardizem drip and start the patient on oral Cardizem. The dose will be 120 mg of Cardizem CD every 12 hours. - Notes Notes: Use the medication changes medical decision making is of high complexity. - Time Time with patient: Greater than 35 minutes Within: Other - We will later decide whether to discharge the patient home with home health or to a assisted facility such as [place].
[2019-10-06] MEDS: PANTOPRAZOLE SODIUM 20 MG TABLET.DR PO SCH (05:13)
[2019-10-06 05:39] LABS: ABSOLUTE RETICS # 0.046 10^6/uL (0.028-0.122); HEMATOCRIT 28.9 % (36.0-47.0); HEMOGLOBIN 9.5 g/dL (12.0-15.5); MEAN CORPUSCULAR HEMOGLOBIN 28.5 pg (27.0-33.4); MEAN CORPUSCULAR VOLUME 87 fl (80-97); PLATELET COUNT 271 10^3/uL (150-450); RED BLOOD COUNT 3.34 10^6/uL (3.72-5.28); RED CELL DISTRIBUTION WIDTH 15.9 % (11.5-14.0); RETICULOCYTE COUNT (AUTO) 1.38 % (0.66-2.85); WHITE BLOOD COUNT 5.7 10^3/uL (4.0-10.5)
[2019-10-06 06:02] LABS: ALBUMIN 2.1 g/dL (3.5-5.0); ALKALINE PHOSPHATASE 59 U/L (38-126); ASPARTATE AMINO TRANSFERASE 20 U/L (14-36); BILIRUBIN,TOTAL 0.3 mg/dL (0.2-1.3); BLOOD UREA NITROGEN 19 mg/dL (7-20); CALCIUM 7.8 mg/dL (8.4-10.2); CHLORIDE 100 mmol/L (98-107); GLUCOSE 81 mg/dL (75-110); POTASSIUM 4.5 mmol/L (3.6-5.0); TOTAL PROTEIN 4.8 g/dL (6.3-8.2)
[2019-10-06 06:08] LABS: CARBON DIOXIDE 28 mmol/L (22-30)
[2019-10-06 06:09] LABS: ANION GAP 2 (5-19)
[2019-10-06] MEDS: ASCORBIC ACID 500 MG TABLET PO SCH ×2 (10:06→17:25)
[2019-10-06] MEDS: DOCUSATE SODIUM 100 MG CAPSULE PO SCH ×2 (10:06→17:25)
[2019-10-06] MEDS: DILTIAZEM HCL 120 MG CAP.SR.24H PO SCH ×2 (10:06→22:03)
[2019-10-06] MEDS: LISINOPRIL 5 MG TABLET PO SCH ×2 (10:06→22:03)
[2019-10-06] MEDS: FUROSEMIDE 20 MG TABLET PO SCH (10:06)
[2019-10-06] MEDS: CYANOCOBALAMIN (VITAMIN B-12) 1,000 MCG TABLET PO SCH (10:06)
[2019-10-06] MEDS: ASPIRIN 81 MG TABLET, ENT COATED PO SCH (10:07)
[2019-10-06] MEDS: ENOXAPARIN SODIUM INJ 40 MG/0.4 ML DISP.SYRIN SUBCUT SCH (10:07)
[2019-10-06] MEDS: CYCLOSPORINE 0.05% OPH EMULSIO 0.4 ML DROPERETTE OU SCH ×2 (10:07→17:25)
[2019-10-06] MEDS: ISOSORBIDE MONONITRATE 60 MG TAB.ER.24H PO SCH (17:25)
--- NOTE | 2019-10-06 18:59 | PDOC PROGRESS REPORT ---
Subjective Progress Note for:: 10/06/19 Subjective:: SUBJECTIVE: The patient denies any chest pain or discomfort. There is no recurrence of SVT. There is no signs of active GI bleed. There is no PND orthopnea. There is no leg edema. There is no atrial or ventricular arrhythmia seen on the monitor. There is no TIA CVA symptoms. The patient is undergoing physical therapy. The patient is desirous of going home with home health care. Will arrange. Most likely the patient will be discharged tomorrow. Reason For Visit: RIGHT SIDE HEART FAILURE, PULMINARY HTN, HTN, CAD Physical Exam Vital Signs: Temp Pulse Resp BP Pulse Ox 97.3 F 67 18 139/52 H 98 10/06/19 17:14 10/06/19 17:14 10/06/19 17:14 10/06/19 17:14 10/06/19 17:14 Intake & Output 10/05/19 10/06/19 10/07/19 06:59 06:59 06:59 Intake Total 905 942 972 Output Total 1800 1970 350 Balance -895 -1028 622 Weight 82.2 kg 82 kg General appearance: PRESENT: other - She is mildly obese. In no acute distress. Head exam: PRESENT: atraumatic, normocephalic Eye exam: PRESENT: EOMI, PERRLA, other - There is no scleral icterus. There is no conjunctival pallor. Ear exam: PRESENT: normal external ear exam, TM's normal bilaterally Throat exam: PRESENT: other - There is no redness of the oropharynx. There is no exudates. Neck exam: PRESENT: other - Trachea central. Carotids are equal there is no bruits. There is mild JVD present. There is no lymphadenopathy. There is no goiter. There is no accessory muscle respiration use. Neck is supple. Respiratory exam: PRESENT: other - Lungs show few crepitant rales in the bases. Otherwise there is no wheezing or rhonchi. The rest of the lungs have clear breath sounds. Cardiovascular exam: PRESENT: other - S1-S2 is heard. S1 is of normal intensity. There is no S3 gallop. There is no S4 gallop. There is systolic murmur left sternal border and the apex there is no rub. Pulses: PRESENT: normal carotid pulses, normal radial pulses, normal femoral pulses, +2 pedal pulses bilateral GI/Abdominal exam: PRESENT: other - Soft nontender. There is no hepatosplenomegaly. Bowel sounds are well heard. There is no tender areas masses. There is no rebound guarding or rigidity. Rectal exam: PRESENT: deferred Extremities exam: PRESENT: other - There is no pedal edema today. There is no cyanosis or clubbing. There is no DVT or cellulitis. There is no calf tendern ess. Neurological exam: PRESENT: other - The patient is conscious awake alert oriented x3 with no focal deficits. Focused psych exam: PRESENT: other - The patient judgment insight are intact her affect is normal. Skin exam: PRESENT: other - There is no skin lesions or skin rashes. There is no petechia or ecchymosis. Results Laboratory Results: 10/06/19 05:20 10/06/19 05:20 10/06/19 10/06/19 05:20 05:20 WBC 5.7 RBC 3.34 L Hgb 9.5 L Hct 28.9 L MCV 87 MCH 28.5 MCHC 33.0 RDW 15.9 H Plt Count 271 Retic Count (auto) 1.38 Sodium 130.3 L Potassium 4.5 Chloride 100 Carbon Dioxide 28 Anion Gap 2 L BUN 19 Creatinine 0.73 Est GFR ( Amer) > 60 Glucose 81 Calcium 7.8 L Total Bilirubin 0.3 AST 20 Alkaline Phosphatase 59 Total Protein 4.8 L Albumin 2.1 L Impressions: Chest X-Ray 09/29/19 00:00 IMPRESSION: Right IJ line tip in the SVC. No pneumothorax. Assessment & Plan - Diagnosis (1) Acute on chronic right ventricular systo Is this a current diagnosis for this admission?: Yes Plan: The patient is off the dopamine putamina drip. We will start the patient on Cardizem CD 120 mg p.o. twice daily which will help in the pulmonary hypertension. The patient is tolerating Cardizem. (2) Severe pulmonary hypertension Is this a current diagnosis for this admission?: Yes Plan: Continue patient on dobutamine. Continue ARB. (3) Chronic pulmonary hypertension Plan: Continue current treatment. (4) Atherosclerotic heart disease of [place] coronary artery without angina pectoris Qualifiers: [place] vs. transplanted heart: [place] heart Qualified Code(s): I25.10 - Atherosclerotic heart disease of [place] coronary artery without angina pectoris Is this a current diagnosis for this admission?: Yes Plan: She has no angina. We will continue the patient's aspirin. And statin. The patient's isosorbide has been decreased to 60 mg p.o. daily. Note with the decrease the patient's isosorbide dosage to 60 mg p.o. daily the patient has no anginal symptoms. She had no anginal symptoms even with a hemoglobin dropped to 7.8. Hence there is no significant coronary artery lesions by inference. (5) Benign essential hypertension Is this a current diagnosis for this admission?: Yes Plan: The patient's blood pressure is soft. Will decrease the patient's nitrates. We will but watch the patient's blood pressure very closely on IV dobutamine. (6) Interstitial lung disease Is this a current diagnosis for this admission?: Yes Plan: We will check sed rate, and CRP to see if this is active. If these are elevated then will try steroids. (7) Hx of CABG Is this a current diagnosis for this admission?: Yes Plan: This is stable. (8) Hyperlipidemia Qualifiers: Hyperlipidemia type: unspecified Qualified Code(s): E78.5 - Hyperlipidemia, unspecified Is this a current diagnosis for this admission?: Yes Plan: Continue statin. Will check lipid levels in the morning. We will also check liver function test. (9) B12 deficiency Is this a current diagnosis for this admission?: Yes Plan: We will continue the patient on B12. B12 levels are normal. Her folate levels are also normal. (10) Diarrhea Qualifiers: Diarrhea type: unspecified type Qualified Code(s): R19.7 - Diarrhea, unspecified Is this a current diagnosis for this admission?: No Plan: The diarrhea has resolved. (11) Iron deficiency anemia Qualifiers: Iron deficiency anemia type: unspecified iron deficiency Qualified Code(s): D50.9 - Iron deficiency anemia, unspecified Is this a current diagnosis for this admission?: Yes (12) Acute renal insufficiency Is this a current diagnosis for this admission?: No Plan: Note the patient GFR is now normal. Hence most likely the elevated BUN/creatinine decreased GFR is most likely due to blood in the gut. The patient's acute renal insufficiency has resolved. (13) SVT (supraventricular tachycardia) Is this a current diagnosis for this admission?: Yes Plan: The patient converted to sinus rhythm with IV adenosine. She was subsequently started on Cardizem drip at 2.5 mics milligrams per hour. We will stop the Cardizem drip and start the patient on oral Cardizem. The dose will be 120 mg of Cardizem CD every 12 hours. There is been no recurrence of SVT on current dose of Cardizem. - Notes Notes: After discussion with the patient and patient's significant other, and the patient's daughter the patient has now decided to go to home with home health c are. She does not want to go to [facility] again. Hence will arrange for home health. - Time Time with patient: Greater than 35 minutes Medications reviewed and adjusted accordingly: Yes Anticipated discharge: Home with Homehealth Within: within 24 hours Disposition: The patient at present has moderately good prognosis.
[2019-10-07] MEDS: PANTOPRAZOLE SODIUM 20 MG TABLET.DR PO SCH (06:11)
[2019-10-07] MEDS: LISINOPRIL 5 MG TABLET PO SCH (09:59)
[2019-10-07] MEDS: CYCLOSPORINE 0.05% OPH EMULSIO 0.4 ML DROPERETTE OU SCH (10:00)
[2019-10-07] MEDS: DOCUSATE SODIUM 100 MG CAPSULE PO SCH (10:00)
[2019-10-07] MEDS: DILTIAZEM HCL 120 MG CAP.SR.24H PO SCH (10:00)
[2019-10-07] MEDS: ENOXAPARIN SODIUM INJ 40 MG/0.4 ML DISP.SYRIN SUBCUT SCH (10:00)
[2019-10-07] MEDS: FUROSEMIDE 20 MG TABLET PO SCH (10:00)
[2019-10-07] MEDS: ASPIRIN 81 MG TABLET, ENT COATED PO SCH (10:00)
[2019-10-07] MEDS: ASCORBIC ACID 500 MG TABLET PO SCH (10:00)
[2019-10-07] MEDS: CYANOCOBALAMIN (VITAMIN B-12) 1,000 MCG TABLET PO SCH (10:01)
[2019-10-07 15:24] VITALS: BP 145/58
--- NOTE | 2019-10-07 18:18 | PDOC DISCHARGE SUMMARY ---
Impression - Admit/DC Date/PCP Admission Date/Primary Care Provider: 09/29/19 17:44 KARL JEWELL- Discharge Date: 10/07/19 - Discharge Diagnosis (1) Acute on chronic right ventricular systo Is this a current diagnosis for this admission?: Yes (2) Severe pulmonary hypertension Is this a current diagnosis for this admission?: Yes (3) Chronic pulmonary hypertension Is this a current diagnosis for this admission?: Yes (4) Atherosclerotic heart disease of [place] coronary artery without angina pectoris Is this a current diagnosis for this admission?: Yes (5) Benign essential hypertension Is this a current diagnosis for this admission?: Yes (6) Interstitial lung disease Is this a current diagnosis for this admission?: Yes (7) Hx of CABG Is this a current diagnosis for this admission?: Yes (8) Hyperlipidemia Is this a current diagnosis for this admission?: Yes (9) B12 deficiency Is this a current diagnosis for this admission?: Yes (10) Diarrhea Is this a current diagnosis for this admission?: No (11) Iron deficiency anemia Is this a current diagnosis for this admission?: Yes (12) Acute renal insufficiency Is this a current diagnosis for this admission?: No (13) SVT (supraventricular tachycardia) Is this a current diagnosis for this admission?: Yes - Additional Information Resuscitation Status: Do Not Intubate - Have spoken to the patient's daughter and the patient and they both want DO NOT INTUBATE. Discharge Diet: As Tolerated, Cardiac Discharge Activity: Activity As Tolerated, Balance Activity w/Rest, Slowly Increase Activity, Weigh Daily Referrals: ETHAN MCMAHON MD [EMERITUS] - 10/18/19 2:00 pm SADE STEPHENS MD [ACTIVE STAFF] - 10/13/19 1:45 pm JAI SMITH MD [ACTIVE STAFF] - 10/14/19 2:00 pm Prescriptions: Diltiazem HCl [Cardizem Cd 120 mg Capsule] 120 mg PO Q12 30 Days #60 cap.sr.24h Isosorbide Mononitrate [Imdur 60 mg Tablet.er] 60 mg PO QPM 30 Days #30 tab.er.24h Magnesium 250 mg PO DAILY 30 Days #30 Lisinopril [Prinivil 5 mg Tablet] 2.5 mg PO Q12 30 Days #60 tablet Pantoprazole Sodium [Protonix [address] Tablet] 20 mg PO Q6AM 30 Days #30 tablet.dr ROSE Home Medications: Ascorbic Acid [Vitamin C 500 mg Tablet] 500 mg PO BID 09/29/19 Aspirin [Ecotrin 81 mg EC Tablet] 81 mg PO DAILY 09/29/19 Cranberry Conc/C/Bacill Coag [AZO Cranberry Tablet] 1 each PO DAILY 09/29/19 Cyanocobalamin (Vitamin B-12) [Vitamin B-12] 1,000 mcg PO DAILY 09/29/19 Docusate Sodium [Colace 100 mg Capsule] 100 mg PO BID 09/29/19 [place]-3 Fatty Acids/Fish Oil [[place] 3 Fish Oil Softgel] 1 each PO BID 09/29/19 Tramadol HCl [Ultram 50 mg Tablet] 50 mg PO Q12 09/29/19 Vit A/Vit C/Vit E/Zinc/Copper [Preservision Areds Softgel] 1 each PO BID 09/29/19 Ascorbic Acid [Vitamin C 500 mg Tablet] 500 mg PO BID tablet 10/07/19 Cyclosporine 0.05% Oph Emulsio [Restasis 0.05% Oph Emulsion Pf 0.4 ml] 1 drop OU BID droperette 10/07/19 Diltiazem HCl [Cardizem Cd 120 mg Capsule] 120 mg PO Q12 30 Days #60 cap.sr.24h 10/07/19 Docusate Sodium [Colace 100 mg Capsule] 100 mg PO BID capsule 10/07/19 Furosemide [Lasix 20 mg Tablet] 20 mg PO DAILY tablet 10/07/19 Isosorbide Mononitrate [Imdur 60 mg Tablet.er] 60 mg PO QPM 30 Days #30 tab.er.24h 10/07/19 Lisinopril [Prinivil 5 mg Tablet] 2.5 mg PO Q12 30 Days #60 tablet 10/07/19 Magnesium 250 mg PO DAILY 30 Days #30 10/07/19 Pantoprazole Sodium [Protonix [address] Tablet] 20 mg PO Q6AM 30 Days #30 tablet.dr ROSE 10/07/19 Ubidecarenone [Coq-10] 100 mg PO DAILY 10/07/19 Additional Information: The patient with current treatment in the hospital her right heart failure is well compensated. Leg edema resolved. History of Present Illiness History of Present Illness: SUNITA BALLESTEROS is a 84 year old female with a history of hypertension, coronary artery disease, with a history of prior coronary artery bypass graft surgery, and history of stent in right coronary artery in the past, and also chronic right heart failure secondary to severe pulmonary hypertension admitted with increasing leg swelling in spite of [facility]. She has orthopnea but no PND. She denies any chest pain or discomfort. She does not ambulate much but uses the wheelchair and does have some dyspnea on more than mild exertion. There is no cough or sputum production. The patient also has a history of interstitial pulmonary fibrosis. Fibrosis. The patient also complains of generalized fatigue and weakness and with severe leg swelling. In view of the patient's acute on chronic right ventricle systolic heart failure due to pulmonary hypertension the patient is being admitted for inotropic treatment, including treatment of her comorbidities and her severe pulmonary hypertension. She denies any fever chills or cough. There is no sputum production or cough. There is no hemoptysis. The patient complains of generalized fatigue and generalized weakness. She has no TIA CVA symptoms. She denies palpitations near syncope or syncope. She also said that she was so weak the past few days that she is not able to even get up on the wheelchair without assistance. She definitely has not had anginal symptoms in a long time. Hospital Course Hospital Course: The patient was initially treated with the Lasix. But had not much of diuresis. She continues to have leg edema. The patient was placed on dobutamine drip at 2.5 mcg/kg/min. Since there was a good response this was increased to 5 mcg/kg/min. But subsequently the patient dropped her blood pressure and hence this drip was transiently stopped. Subsequently the patient was restarted on dobutamine at 2.5 mcg/kg/min which was continued. Until a day prior to her discharge. To be time it was stopped. This resulted in good diuresis and the leg edema on the day of discharge completely resolved. She also was found to have a drop in hemoglobin and received a unit of packed RBCs. She also had anemia work-up which showed that the patient is iron deficient anemia. She also had stool Hemoccult positive. GI was consulted. The patient's anemia studies showed a low iron. The patient was given Injectafer infusion for replacement of her iron stores. He thought it was a combination of chronic anemia and they found no source of acute GI bleed. Hence they would do an endoscopy as an outpatient. The patient also had one episode SVT which was terminated with IV adenosine. This is did not recur. The patient was subsequently placed on a Cardizem drip which was later transitioned to Cardizem CD 120 mg p.o. twice daily. The patient was on isosorbide mononitrate [Imdur] 120 mg p.o. daily. But due to the patient's blood pressure being on the lower side this was decreased to 60 mg p.o. daily. The patient no anginal symptoms. The patient on the day of discharge had no evidence of right heart failure. PT helped in ambulating the patient, and she walked a little. She will be having home physical therapy along with home health. Physical Exam Vital Signs: Temp Pulse Resp BP Pulse Ox 97.1 F 68 18 145/58 H 97 10/07/19 15:22 10/07/19 15:22 10/07/19 15:22 10/07/19 15:22 10/07/19 15:22 Intake & Output 10/06/19 10/07/19 10/08/19 06:59 06:59 06:59 Intake Total 942 972 Output Total 1970 1050 Balance -1028 -78 Weight 82 kg 79.2 kg General appearance: PRESENT: no acute distress, other - The patient is mildly obese. She is well-groomed. Eye exam: PRESENT: conjunctiva pink, EOMI, PERRLA, other - There is no scleral icterus. Ear exam: PRESENT: normal external ear exam, TM's normal bilaterally Mouth exam: PRESENT: moist, neck supple, tongue midline Throat exam: PRESENT: other - There is no redness of the oropharynx. There is no exudates in the throat. Neck exam: PRESENT: other - Neck is supple. Carotids are equal there is no bruits. There is no lymphadenopathy. There is no goiter there is no accessory muscle respiration use. Trachea central. Respiratory exam: PRESENT: other - Lungs are clear to auscultation percussion except for a few crepitant rales in the right base. Cardiovascular exam: PRESENT: other - S1-S2 is heard. S1 is of normal intensity. There is no S3 gallop. There is no S4 gallop. Systolic murmur left sternal border and the apex there is no rub. Pulses: PRESENT: normal carotid pulses, normal radial pulses, normal femoral pulses, +2 pedal pulses bilateral GI/Abdominal exam: PRESENT: other - Abdomen is soft there is no hepatosplenomegaly. Bowel sounds are well heard. Rectal exam: PRESENT: deferred - There is no pedal edema. There is no DVT is the lightest. There is no calf tenderness. There is no cyanosis or clubbing. Musculoskeletal exam: PRESENT: full ROM, normal inspection Neurological exam: PRESENT: other - The patient is conscious awake alert oriented x3 with no focal deficits. Psychiatric exam: PRESENT: other - Patient judgment and insight are intact her affect is normal. Results Laboratory Results: WBC 5.7 10^3/uL (4.0-10.5) 10/06/19 05:20 RBC 3.34 10^6/uL (3.72-5.28) L 10/06/19 05:20 Hgb 9.5 g/dL (12.0-15.5) L 10/06/19 05:20 Hct 28.9 % (36.0-47.0) L 10/06/19 05:20 MCV 87 fl (80-97) 10/06/19 05:20 MCH 28.5 pg (27.0-33.4) 10/06/19 05:20 MCHC 33.0 g/dL (32.0-36.0) 10/06/19 05:20 RDW 15.9 % (11.5-14.0) H 10/06/19 05:20 Plt Count 271 10^3/uL (150-450) 10/06/19 05:20 Lymph % (Auto) 21.0 % (13-45) 10/02/19 14:20 [place] % (Auto) 10.1 % (3-13) 10/02/19 14:20 Eos % (Auto) 0.9 % (0-6) 10/02/19 14:20 Baso % (Auto) 0.3 % (0-2) 10/02/19 14:20 Reticulocyte # 0.046 10^6/uL (0.028-0.122) 10/06/19 05:20 Absolute Neuts (auto) 3.9 10^3/uL (1.7-8.2) 10/02/19 14:20 Absolute Lymphs (auto) 1.2 10^3/uL (0.5-4.7) 10/02/19 14:20 Absolute Monos (auto) 0.6 10^3/uL (0.1-1.4) 10/02/19 14:20 Absolute Eos (auto) 0.1 10^3/uL (0.0-0.6) 10/02/19 14:20 Absolute Basos (auto) 0.0 10^3/uL (0.0-0.2) 10/02/19 14:20 Seg Neutrophils % 67.7 % (42-78) 10/02/19 14:20 ESR 22 mm/hr (0-30) 10/02/19 14:20 Retic Count (auto) 1.38 % (0.66-2.85) 10/06/19 05:20 PT 14.3 SEC (11.4-15.4) 09/29/19 18:31 INR 1.10 09/29/19 18:31 APTT 33.1 SEC (23.5-35.8) 09/29/19 18:31 Sodium 130.3 mmol/L (137-145) L 10/06/19 05:20 Potassium 4.5 mmol/L (3.6-5.0) 10/06/19 05:20 Chloride 100 mmol/L (98-107) 10/06/19 05:20 Carbon Dioxide 28 mmol/L (22-30) 10/06/19 05:20 Anion Gap 2 (5-19) L 10/06/19 05:20 BUN 19 mg/dL (7-20) 10/06/19 05:20 Creatinine 0.73 mg/dL (0.52-1.25) 10/06/19 05:20 Est GFR ( Amer) > 60 (>60) 10/06/19 05:20 Est GFR (MDRD) Non-Af > 60 (>60) 10/06/19 05:20 Glucose 81 mg/dL (75-110) 10/06/19 05:20 Calcium 7.8 mg/dL (8.4-10.2) L 10/06/19 05:20 Magnesium 2.8 mg/dL (1.6-2.3) H 09/29/19 18:31 Iron 11.9 ug/dL (37-170) L 10/01/19 10:20 TIBC 157 ug/dL (250-450) L 10/01/19 10:20 % Saturation 8 % 10/01/19 10:20 Ferritin 84.30 ng/mL (11.1-264.0) 10/01/19 10:20 Total Bilirubin 0.3 mg/dL (0.2-1.3) 10/06/19 05:20 Direct Bilirubin 0.0 mg/dL (0.0-0.4) 10/06/19 05:20 Neonat Total Bilirubin Not Reportable 10/06/19 05:20 Neonat Direct Bilirubin Not Reportable 10/06/19 05:20 Neonat Indirect Bili Not Reportable 10/06/19 05:20 AST 20 U/L (14-36) 10/06/19 05:20 ALT 7 U/L (<35) 10/06/19 05:20 Alkaline Phosphatase 59 U/L (38-126) 10/06/19 05:20 C-Reactive Protein 49.7 mg/L (<10.0) H 10/02/19 14:20 Total Protein 4.8 g/dL (6.3-8.2) L 10/06/19 05:20 Albumin 2.1 g/dL (3.5-5.0) L 10/06/19 05:20 Triglycerides 61 mg/dL (<150) 10/01/19 07:40 Cholesterol 113.22 mg/dL (0-200) 10/01/19 07:40 LDL Cholesterol Direct 70 mg/dL (<100) 10/01/19 07:40 VLDL Cholesterol 12.0 mg/dL (10-31) 10/01/19 07:40 HDL Cholesterol 35 mg/dL (>40) L 10/01/19 07:40 Vitamin B12 > 1000.0 pg/mL (239-931) H 10/01/19 10:20 Folate 17.00 ng/mL (>2.76) 10/01/19 10:20 TSH 1.25 uIU/mL (0.47-4.68) 10/01/19 07:40 Free T4 1.49 ng/dL (0.78-2.19) 10/01/19 07:40 Free T3 pg/mL 1.83 pg/mL (2.77-5.27) L 10/01/19 07:40 Stool Occult Blood POSITIVE (NEGATIVE) 10/02/19 11:16 Stl C. Difficile GDH Ag POSITIVE (NEGATIVE) 09/30/19 19:15 Stl C.difficile Tox A&B NEGATIVE (NEGATIVE) 09/30/19 19:15 Stl C.difficile Tox PCR NEGATIVE (NEGATIVE) 09/30/19 19:15 Blood Type O POSITIVE 10/01/19 10:20 Antibody Screen NEGATIVE 10/01/19 10:20 Crossmatch See Detail 10/01/19 10:20 Impressions: Chest X-Ray 09/29/19 00:00 IMPRESSION: NO ACUTE RADIOGRAPHIC FINDING IN THE CHEST. Chest X-Ray 09/29/19 00:00 IMPRESSION: Right IJ line tip in the SVC. No pneumothorax. Plan Health Concerns: The patient is sedentary. With the help of physical therapy to mobilize the patient. We will watch the patient for any development of angina. The patient will be having an outpatient endoscopy by Dr. Stephens. Will follow the patient's pulmonary pressures and adjust her medications accordingly. Note unfortunately the patient was tried on Cialis in the [facility] during her stay earlier on. This dropped her blood pressure. We will see if we can get the patient to see a specialist in the pulmonary hypertension clinic in [facility] will follow the patient closely in the office as an outpatient. Plan of Treatment: We will continue the patient's Imdur Lasix, and all the other current medications. We will stop the iron since the patient did receive iron transfusion. We will continue the patient on isosorbide mononitrate. We will continue patient on Cardizem CD 120 mg p.o. twice daily. We will continue the patient's lisinopril at 2.5 mg p.o. every 12 hours. As an outpatient if the blood pressure permits will increase this as tolerated. Will follow the patient closely for development of any symptoms or signs of right heart failure. The patient has been educated on this as well as the patient's significant other. Stroke Is this a Stroke Patient?: No Reason(s) for not prescribing Anti-thrombolytic therapy:: Not indicated Reason(s) for not prescribing Anti-coagulation therapy:: Not indicated Acute Heart Failure - Is this a Heart Failure Patient?: No
== END 2019-10-07 15:50 | disposition home health service (06) | DRG 291 ==
LOC: 3S 17:44
PROVIDERS: ADMIT Specialist; ATTEND Specialist
PROC: 02HV33Z Insertion of Infusion Device into Superior Vena Cava, Percutaneous Approach (ICD-10-PCS; principal; 2019-09-29)
PROC: 30233N1 Transfusion of Nonautologous Red Blood Cells into Peripheral Vein, Percutaneous Approach (ICD-10-PCS; 2019-10-01)
DX: I11.0 Hypertensive heart disease with heart failure (principal); J96.21 Acute and chronic respiratory failure with hypoxia; I48.20 Chronic atrial fibrillation, unspecified; J84.9 Interstitial pulmonary disease, unspecified; I27.29 Other secondary pulmonary hypertension; I50.813 Acute on chronic right heart failure; I25.10 Atherosclerotic heart disease of native coronary artery without angina pectoris; E78.5 Hyperlipidemia, unspecified; D51.3 Other dietary vitamin B12 deficiency anemia; M79.89 Other specified soft tissue disorders; N28.9 Disorder of kidney and ureter, unspecified; R19.7 Diarrhea, unspecified; Z95.5 Presence of coronary angioplasty implant and graft; Z79.82 Long term (current) use of aspirin; Z79.899 Other long term (current) drug therapy; Z99.81 Dependence on supplemental oxygen
CPT/HCPCS: 36415; 36430; 71045; 80048; 80053; 80061; 82272; 82607; 82728; 82746; 83540; 83550; 83735; 84439; 84443; 84481; 85025; 85027; 85045; 85610; 85652; 85730; 86140; 86850; 86900; 86901; 86920; 87086; 87088; 87186; 87324; 87449; 87493; 93005; 93010; J0153; J1250; J1439; J1642; J1650; J1940; J2405; J3490; J7050; P9016

== ENCOUNTER → 2019-12-02 | Outpatient (CLI) | payer MEDICARE, OTHER ==
[2019-12-02 16:19] LABS: HEMATOCRIT 30.7 % (36.0-47.0); HEMOGLOBIN 10.5 g/dL (12.0-15.5); MEAN CORPUSCULAR HEMOGLOBIN 29.8 pg (27.0-33.4); MEAN CORPUSCULAR HGB CONC 34.3 g/dL (32.0-36.0); MEAN CORPUSCULAR VOLUME 87 fl (80-97); PLATELET COUNT 290 10^3/uL (150-450); RED BLOOD COUNT 3.53 10^6/uL (3.72-5.28); RED CELL DISTRIBUTION WIDTH 19.5 % (11.5-14.0); WHITE BLOOD COUNT 5.4 10^3/uL (4.0-10.5)
[2019-12-02 16:43] LABS: ANION GAP 7 (5-19); BLOOD UREA NITROGEN 24 mg/dL (7-20); CALCIUM 8.3 mg/dL (8.4-10.2); CARBON DIOXIDE 29 mmol/L (22-30); CHLORIDE 96 mmol/L (98-107); GLUCOSE 87 mg/dL (75-110); POTASSIUM 4.4 mmol/L (3.6-5.0)
== END ==
LOC: OD 15:44
PROVIDERS: ATTEND Internal Medicine Gastroenterology
DX: D53.9 Nutritional anemia, unspecified (principal)
CPT/HCPCS: 36415; 80048; 82728; 85027

== ENCOUNTER 2020-02-04 09:26 | Emergency (ER) | payer MEDICARE, OTHER ==
--- NOTE | 2020-02-04 10:59 | ER Document Report ---
Entered by MALKA BALBUENA SCRIBE 02/04/20 1015 Acting as scribe for:VIDHYA LUCAS MD ED Blood Pressure Problem - General Chief Complaint: Low Blood Pressure Stated Complaint: HYPOTENSION Time Seen by Provider: 02/04/20 10:04 Primary Care Provider: ETHAN MCMAHON MD [Primary Care Provider] - Follow up as needed Mode of Arrival: Medic Information source: Patient Notes: This 85 year old female patient presents to the emergency department today with complaints of generalized weakness today while sitting on the toilet. Patient states she had 3 episodes of diarrhea yesterday and she was having diarrhea again this morning when the generalized weakness occurred. When EMS arrived at the patient's residence she was found to be profoundly hypotensive 55/30 with a heart rate of 58. Patient is on Lomotil for chronic diarrhea. TRAVEL OUTSIDE OF THE [place] IN LAST 30 DAYS: No - Related Data Allergies/Adverse Reactions: levofloxacin [From Levaquin] Adverse Reaction (Mild, Verified 02/04/20 10:52) Diarrhea Past Medical History - General Information source: Patient - Social History Smoking Status: Former Smoker - quit in 1991 Cigarette use (# per day): No Frequency of alcohol use: None Drug Abuse: None Occupation: retired Lives with: Family Family History: Reviewed & Not Pertinent, Hypertension, Malignancy - Past Medical History Cardiac Medical History: Reports: Hx Coronary Artery Disease, Hx Heart Attack, Hx Hypercholesterolemia, Hx Hypertension Pulmonary Medical History: Reports: Hx Pneumonia - 2011 Neurological Medical History: Reports: Hx Cerebrovascular Accident GI Medical History: Reports: Hx Gastroesophageal Reflux Disease Musculoskeletal Medical History: Reports Hx Arthritis Past Surgical History: Reports: Hx Cardiac Catheterization, Hx Cardiac Surgery - "bypass", Hx Coronary Artery Bypass Graft, Hx Coronary Stent, Hx Hysterectomy, Hx Tubal Ligation - Immunizations Hx Diphtheria, Pertussis, Tetanus Vaccination: No Hx Pneumococcal Vaccination: 08/15/19 Review of Systems - Review of Systems Constitutional: See HPI, Weakness EENT: No symptoms reported Cardiovascular: No symptoms reported Respiratory: No symptoms reported Gastrointestinal: See HPI, Diarrhea Genitourinary: No symptoms reported Female Genitourinary: No symptoms reported Musculoskeletal: No symptoms reported Skin: No symptoms reported Hematologic/Lymphatic: No symptoms reported Neurological/Psychological: No symptoms reported -: Yes All other systems reviewed and negative Physical Exam - Vital signs Vitals: Temp Resp BP Pulse Ox 97.7 F 17 120/58 L 94 02/04/20 09:34 02/04/20 09:34 02/04/20 09:34 02/04/20 09:34 - Notes Notes: Physical Exam: General: Alert, appears age appropriate, hoarse sounding voice. HEENT: Normocephalic. Atraumatic. PERRL. Extraocular movements intact. Oropharynx clear. Dry mucous membranes. Neck: Supple. Non-tender. Respiratory: No respiratory distress. Clear and equal breath sounds bilaterally. Cardiovascular: Systolic ejection murmur. Regular rate and rhythm. Abdominal: Normal Inspection. Non-tender. No distension. Normal Bowel Sounds. Back: No gross abnormalities. Extremities: Moves all four extremities. Upper extremities: Normal inspection. Normal ROM. Lower extremities: Normal inspection. No edema. Normal ROM. Neurological: Normal cognition. AAOx4. Normal speech. Psychological: Normal affect. Normal Mood. Skin: Warm. Dry. Normal color. Course - Re-evaluation Re-evalutation: 02/04/20 14:28 The patient's first urinalysis had considerable WBCs, epithelial cells, and bacteria. I had the urine repeated as a catheterized urine, again had 3+ WBCs and nitrite positive but only 3 WBCs, and leukocyte esterase negative. I suspect the bacteria is still related to contamination in the genital area due to the diarrhea she has been having. She has not had any diarrhea since she arrived here 5 hours ago. - Vital Signs Vital signs: Temp Pulse Resp BP Pulse Ox 97.7 F 94 11 L 147/74 H 96 02/04/20 09:55 02/04/20 11:48 02/04/20 14:01 02/04/20 14:00 02/04/20 14:01 - Laboratory Result Diagrams: 02/04/20 10:49 02/04/20 10:49 Laboratory results interpreted by me: 02/04/20 02/04/20 02/04/20 10:49 10:49 12:27 RBC 3.26 L Hgb 10.4 L Hct 30.7 L RDW 14.4 H Seg Neutrophils % 79.3 H Sodium 132.7 L BUN 27 H Est GFR ( Amer) 58 L Est GFR (MDRD) Non-Af 48 L Creatine Kinase 22 L Total Protein 6.0 L Albumin 3.0 L Urine Blood MODERATE H Urine Nitrite POSITIVE H Ur Leukocyte Esterase LARGE H Urine Ascorbic Acid 40 H 02/04/20 13:56 RBC Hgb Hct RDW Seg Neutrophils % Sodium BUN Est GFR ( Amer) Est GFR (MDRD) Non-Af Creatine Kinase Total Protein Albumin Urine Blood Urine Nitrite POSITIVE H Ur Leukocyte Esterase Urine Ascorbic Acid 40 H - EKG Interpretation by Me EKG shows normal: Sinus rhythm, [place], Intervals, ST-T Waves. abnormal: QRS Complexes - Old inferior infarct Rate: Normal - 63 Rhythm: NSR, APC's When compared to previous EKG there are: No significant change Discharge - Discharge Clinical Impression: Dehydration Hypotension Qualifiers: Hypotension type: unspecified hypotension type Qualified Code(s): I95.9 - Hypotension, unspecified Diarrhea Qualifiers: Diarrhea type: unspecified type Qualified Code(s): R19.7 - Diarrhea, unspecified Condition: Stable Disposition: HOME, SELF-CARE Additional Instructions: Hypotension: Your blood pressure is low. Low blood pressure can make you feel weak, lightheaded, and even make you pass out. Low blood pressure can be caused by dehydration or blood loss. Problems with the heart, kidneys, or blood vessels can cause hypotension. Certain medications can make your blood pressure abnormally low. Infection can lower blood pressure. In many cases, the person is totally healthy, but for unknown reasons, the blood pressure falls when they stand up. This is called benign orthostatic hypotension. The treatment of low blood pressure depends on the severity of the symptoms, and on the underlying cause. Sometimes it's not possible to identify a cause. At this time, it doesn't appear that the problem is serious enough to require hospitalization. Medicines that could be contributing to the problem can be withheld or reduced in dosage if your doctor approves. Get plenty of fluids. Eat a healthy diet. Be careful to stand up slowly. If you feel suddenly lightheaded or if your vision goes sewell, sit or lie down at once. Don't drive or operate machinery until the symptoms are under control. Return or call the doctor if you develop fainting or severe dizziness, severe weakness, problems with vision, chest pain, shortness of breath, fever, or confusion. Dehydration: Dehydration can result from vomiting or diarrhea, fever, or decreased intake of fluids. If severe, hospitalization and intravenous fluids may be req uired. Most cases are treated at home with fluids by mouth. For the next 24 hours, drink lots of clear fluids. In mild cases, this can be soda pop or sports drinks. For more severe dehydration, the doctor may recommend special fluids such as Pedialyte or Lytren. Try to get three liters (3 quarts) of fluid per day. If vomiting occurs, continue to drink the fluids frequently (every 15 to 20 minutes), but in small amounts (one or two ounces). Depending on the type of dehydration, the doctor may prescribe antinausea medicine or potassium replacements. Call the doctor or return for re-examination if you become progressively weak, vomit repeatedly, or have other new symptoms. Your blood pressure was very low. This is probably due to becoming dehydrated from the diarrhea. Drink plenty of fluids today. Rest. Do not stand up quickly. Return to the emergency room immediately if any further problems. Follow-up with Dr. James Acuña for recheck. Referrals: ETHAN MCMAHON MD [Primary Care Provider] - Follow up as needed I personally performed the services described in the documentation, reviewed and edited the documentation which was dictated to the scribe in my presence, and it accurately records my words and actions.
[2020-02-04 11:01] LABS: ABSOLUTE EOSINOPHILS # (AUTO) 0.1 10^3/uL (0.0-0.6); ABSOLUTE LYMPHOCYTES (AUTO) 1.1 10^3/uL (0.5-4.7); ABSOLUTE MONOCYTES (AUTO) 0.5 10^3/uL (0.1-1.4); ABSOLUTE NEUT (AUTO) 6.4 10^3/uL (1.7-8.2); BASOPHILS % (AUTO) 0.4 % (0-2); EOSINOPHILS % (AUTO) 0.6 % (0-6); HEMATOCRIT 30.7 % (36.0-47.0); HEMOGLOBIN 10.4 g/dL (12.0-15.5); LYMPHOCYTES % (AUTO) 13.7 % (13-45); MEAN CORPUSCULAR HEMOGLOBIN 31.9 pg (27.0-33.4); MEAN CORPUSCULAR HGB CONC 33.9 g/dL (32.0-36.0); MEAN CORPUSCULAR VOLUME 94 fl (80-97); PLATELET COUNT 232 10^3/uL (150-450); RED BLOOD COUNT 3.26 10^6/uL (3.72-5.28); RED CELL DISTRIBUTION WIDTH 14.4 % (11.5-14.0); SEGMENTED NEUTROPHILS % (AUTO) 79.3 % (42-78); TOTAL CELLS COUNTED % (AUTO) 100 %
[2020-02-04 11:22] LABS: ALKALINE PHOSPHATASE 100 U/L (38-126); ANION GAP 6 (5-19); ASPARTATE AMINO TRANSFERASE 17 U/L (14-36); BILIRUBIN,TOTAL 0.3 mg/dL (0.2-1.3); BLOOD UREA NITROGEN 27 mg/dL (7-20); CALCIUM 8.7 mg/dL (8.4-10.2); CARBON DIOXIDE 28 mmol/L (22-30); CHLORIDE 99 mmol/L (98-107); CREATINE KINASE 22 U/L (30-135); GLUCOSE 108 mg/dL (75-110); POTASSIUM 4.4 mmol/L (3.6-5.0)
[2020-02-04 11:33] LABS: CREATINE KINASE MB 0.71 ng/mL (<4.55)
[2020-02-04 11:37] LABS: TROPONIN I < 0.012 ng/mL
[2020-02-04] MEDS ORDERED: DEXTROSE 5%-LACTATED RINGERS 1,000 ML IV ONE (12:36)
[2020-02-04 13:15] LABS: APPEARANCE,URINE CLOUDY; BILIRUBIN,URINE NEGATIVE (NEGATIVE); COLOR,URINE YELLOW; GLUCOSE, URINE NEGATIVE (NEGATIVE); KETONES,URINE NEGATIVE (NEGATIVE); LEUKOCYTE ESTERASE,URINE LARGE (NEGATIVE); NITRITE,URINE POSITIVE (NEGATIVE); PROTEIN,URINE NEGATIVE (NEGATIVE); URINE SPECIFIC GRAVITY 1.014; UROBILINOGEN,URINE NEGATIVE mg/dL (<2.0)
[2020-02-04 14:06] VITALS: BP 147/74
[2020-02-04 14:07] LABS: APPEARANCE,URINE SLIGHTLY-CLOUDY; BILIRUBIN,URINE NEGATIVE (NEGATIVE); COLOR,URINE YELLOW; GLUCOSE, URINE NEGATIVE (NEGATIVE); KETONES,URINE NEGATIVE (NEGATIVE); LEUKOCYTE ESTERASE,URINE NEGATIVE (NEGATIVE); NITRITE,URINE POSITIVE (NEGATIVE); PROTEIN,URINE NEGATIVE (NEGATIVE); URINE SPECIFIC GRAVITY 1.013; UROBILINOGEN,URINE NEGATIVE mg/dL (<2.0)
--- NOTE | 2020-02-04 18:52 | EKG REPORT ---
SEVERITY:- ABNORMAL ECG - SINUS RHYTHM ATRIAL PREMATURE COMPLEX INFERIOR INFARCT, AGE INDETERMINATE : Confirmed by: Mary Eugene MD 04-Feb-2020 18:51:36
== END 2020-02-04 15:04 | disposition home or self-care (01) ==
LOC: ER 09:26
DX: E86.0 Dehydration (principal); I95.9 Hypotension, unspecified; R19.7 Diarrhea, unspecified; R53.1 Weakness; I25.10 Atherosclerotic heart disease of native coronary artery without angina pectoris; E78.00 Pure hypercholesterolemia, unspecified; I10 Essential (primary) hypertension; Z86.73 Personal history of transient ischemic attack (TIA), and cerebral infarction without residual deficits; Z95.1 Presence of aortocoronary bypass graft; Z90.710 Acquired absence of both cervix and uterus; I25.2 Old myocardial infarction
CPT/HCPCS: 93005; 99285; 96360; 51701; 36415; 87086; 82553; 82550; 85025; 87088; 80053; 81001; 84484; 87186; 93010; J7121

== ENCOUNTER 2020-03-21 09:47 | Observation (INO) | payer MEDICARE ==
[2020-03-21] MEDS ORDERED: NORMAL SALINE 1000 ML 1,000 ML IV ONE (10:30)
--- NOTE | 2020-03-21 10:32 | ER Document Report ---
ED Medical Screen (RME) - General Chief Complaint: Syncope Stated Complaint: SYNCOPAL EPISODE Time Seen by Provider: 03/21/20 10:29 Primary Care Provider: ETHAN MCMAHON MD [Primary Care Provider] - Follow up as needed Mode of Arrival: Medic Notes: 85-year-old female presented to ED for syncopal episode on the toilet. She was brought in by EMS. She states she went to the bathroom had a bowel movement and passed out. She states she does have a cardiac history she has had bypass surgery and stents. She has had a WA in the past she has elevated blood pressure elevated cholesterol arthritis. She is also had a knee replacement and bilateral tubal ligation. She states she does not smoke drink or use any drugs. She states she is still feeling a little dizzy at this time. She is alert oriented and able to answer questions appropriately. She is hard of hearing. I have greeted and performed a rapid initial assessment of this patient. A comprehensive ED assessment and evaluation of the patient, analysis of test results and completion of medical decision making process will be conducted by an additional ED providers. TRAVEL OUTSIDE OF THE [place] IN LAST 30 DAYS: No - Related Data Allergies/Adverse Reactions: levofloxacin [From [employer]] Adverse Reaction (Mild, Verified 02/04/20 10:52) Diarrhea Home Medications: asa, furosemide, iron, isosorbide, lisinopril, lanexa, mag ox olya, k+, tramadol Past Medical History - Social History Frequency of alcohol use: None Drug Abuse: None - Past Medical History Cardiac Medical History: Reports: Hx Atrial Fibrillation, Hx Congestive Heart Failure, Hx Coronary Artery Disease, Hx Heart Attack, Hx Hypercholesterolemia, Hx Hypertension Denies: Hx Peripheral Vascular Disease, Hx Heart Murmur Pulmonary Medical History: Reports: Hx Pneumonia - 2011 Denies: Hx Asthma, Hx Bronchitis, Hx COPD, Hx Tuberculosis Neurological Medical History: Reports: Hx Cerebrovascular Accident. Denies: Hx Seizures Endocrine Medical History: Denies: Hx Diabetes Mellitus Type 1, Hx Diabetes Mellitus Type 2, Hx Hyperthyroidism, Hx Hypothyroidism Renal/ Medical History: Denies: Hx Peritoneal Dialysis GI Medical History: Reports: Hx Gastroesophageal Reflux Disease. Denies: Hx Cirrhosis, Hx Hepatitis Musculoskeltal Medical History: Reports Hx Arthritis, Denies Hx Gout Skin Medical History: Denies Hx Eczema, Denies Hx Psoriasis Psychiatric Medical History: Denies: Hx Depression Infectious Medical History: Denies: Hx Hepatitis, Hx HIV Past Surgical History: Reports: Hx Cardiac Catheterization, Hx Cardiac Surgery - "bypass", Hx Coronary Artery Bypass Graft, Hx Coronary Stent, Hx Hysterectomy, Hx Orthopedic Surgery - Knee replacement, Hx Tubal Ligation. Denies: Hx Appendectomy, Hx Bowel Surgery, Hx Section, Hx Cholecystectomy, Hx Gastric Bypass Surgery, Hx Herniorrhaphy, Hx Mastectomy, Hx Pacemaker, Hx Tonsillectomy - Immunizations Hx Diphtheria, Pertussis, Tetanus Vaccination: No Physical Exam - Vital signs Vitals: Temp 97.4 F 03/21/20 09:54 Course - Vital Signs Vital signs: Temp Pulse Resp BP Pulse Ox 97.4 F 18 120/54 L 03/21/20 09:54 03/21/20 10:03 03/21/20 10:03 - Laboratory Result Diagrams: 03/21/20 10:15 03/21/20 10:15 Doctor's Discharge - Discharge Referrals: ETHAN MCMAHON MD [Primary Care Provider] - Follow up as needed
[2020-03-21 10:34] LABS: ABSOLUTE EOSINOPHILS # (AUTO) 0.1 10^3/uL (0.0-0.6); ABSOLUTE LYMPHOCYTES (AUTO) 1.4 10^3/uL (0.5-4.7); ABSOLUTE MONOCYTES (AUTO) 0.5 10^3/uL (0.1-1.4); ABSOLUTE NEUT (AUTO) 6.8 10^3/uL (1.7-8.2); BASOPHILS % (AUTO) 0.3 % (0-2); EOSINOPHILS % (AUTO) 1.3 % (0-6); HEMATOCRIT 31.9 % (36.0-47.0); HEMOGLOBIN 10.7 g/dL (12.0-15.5); LYMPHOCYTES % (AUTO) 15.6 % (13-45); MEAN CORPUSCULAR HEMOGLOBIN 31.3 pg (27.0-33.4); MEAN CORPUSCULAR HGB CONC 33.5 g/dL (32.0-36.0); MEAN CORPUSCULAR VOLUME 94 fl (80-97); MONOCYTES % (AUTO) 5.2 % (3-13); PLATELET COUNT 204 10^3/uL (150-450); RED BLOOD COUNT 3.41 10^6/uL (3.72-5.28); RED CELL DISTRIBUTION WIDTH 13.8 % (11.5-14.0); SEGMENTED NEUTROPHILS % (AUTO) 77.6 % (42-78); TOTAL CELLS COUNTED % (AUTO) 100 %; WHITE BLOOD COUNT 8.8 10^3/uL (4.0-10.5)
[2020-03-21 10:55] LABS: ALBUMIN 3.4 g/dL (3.5-5.0); ALKALINE PHOSPHATASE 87 U/L (38-126); ANION GAP 6 (5-19); ASPARTATE AMINO TRANSFERASE 18 U/L (14-36); BILIRUBIN,TOTAL 0.4 mg/dL (0.2-1.3); BLOOD UREA NITROGEN 24 mg/dL (7-20); CALCIUM 9.2 mg/dL (8.4-10.2); CARBON DIOXIDE 24 mmol/L (22-30); CHLORIDE 105 mmol/L (98-107); CREATINE KINASE 26 U/L (30-135); GLUCOSE 102 mg/dL (75-110); TOTAL PROTEIN 6.2 g/dL (6.3-8.2)
[2020-03-21 11:07] LABS: CREATINE KINASE MB 0.83 ng/mL (<4.55)
[2020-03-21 11:08] LABS: TROPONIN I < 0.012 ng/mL
[2020-03-21 11:14] LABS: INTERNATIONAL RATION (INR) 1.05; PARTIAL THROMBOPLASTIN TIME 28.5 SEC (23.5-35.8); PROTHROMBIN TIME 13.7 SEC (11.4-15.4)
--- NOTE | 2020-03-21 12:00 | RADIOLOGY REPORT (SQ) ---
EXAM DESCRIPTION: CHEST SINGLE VIEW IMAGES COMPLETED DATE/TIME: 03/21/2020 10:42 am REASON FOR STUDY: syncope COMPARISON: 09/29/2019. EXAM PARAMETERS: NUMBER OF VIEWS: One view. TECHNIQUE: Single frontal radiographic view of the chest acquired. RADIATION DOSE: NA LIMITATIONS: None. FINDINGS: LUNGS AND PLEURA: Lungs are hyperinflated. No focal consolidation or pleural effusion. N o pneumothorax. MEDIASTINUM AND HILAR STRUCTURES: No masses. Contour normal. HEART AND VASCULAR STRUCTURES: Postoperative changes in the mediastinum, stable. Heart has normal si ze. No pulmonary vascular congestion. BONES: No acute findings. HARDWARE: None in the chest. OTHER: No other significant finding. IMPRESSION: No significant interval change. No acute cardiopulmonary disease. TECHNICAL DOCUMENTATION: JOB ID: [id number] [employer]- All Rights Reserved Reading location - IP/workstation name: [email or web address]
[2020-03-21] MEDS ORDERED: ACETAMINOPHEN 325 MG TABLET PO PRN (12:01)
[2020-03-21] MEDS ORDERED: ONDANSETRON HCL INJ/PF 4 MG/2 ML SDV IV PRN (12:01)
--- NOTE | 2020-03-21 12:12 | EKG REPORT ---
SEVERITY:- ABNORMAL ECG - SINUS RHYTHM INFERIOR INFARCT, AGE INDETERMINATE : Confirmed by: Brennen Hancock MD 21-Mar-2020 12:11:10
[2020-03-21] MEDS ORDERED: HYDRALAZINE HCL INJ/PF 20 MG/1 ML SDV IV PRN (12:14)
--- NOTE | 2020-03-21 12:22 | PDOC H&P ---
History of Present Illness Admission Date/PCP: ETHAN MCMAHON MD Patient complains of: Patient passed out at home this morning History of Present Illness: SUNITA BALLESTEROS is a 85 year old female with history of atrial fibrillation not on anticoagulation, coronary artery disease status post bypass in 1991, hypertension, hypercholesterolemia, osteoarthritis came to the emergency room after passing out this morning while sitting on the commode. She did not fell she leaned back. Denies any headaches dizzy spells denies any chest pains denies any shortness of breath denies any palpitations. Denies any nausea vomiting's. She has occasional constipation. dr mortensen saw the patient in the emergency room recommended to admit the patient in the hospital for observation. Patient requested to be DNR/DNI. Past Medical History Cardiac Medical History: Reports: Atrial Fibrillation, Congestive Heart Failure, Coronary Artery Disease, Myocardial Infarction, Hyperlipidema, Hypertension Denies: Peripheral Vascular Disease, Heart Murmur Pulmonary Medical History: Reports: Pneumonia - 2011 Denies: Asthma, Bronchitis, Chronic Obstructive Pulmonary Disease (COPD), Tuberculosis Neurological Medical History: Denies: Seizures Endocrine Medical History: Denies: Diabetes Mellitus Type 1, Diabetes Mellitus Type 2, Hyperthyroidism, Hypothyroidism GI Medical History: Reports: Gastroesophageal Reflux Disease Denies: Cirrhosis, Hepatitis Musculoskeltal Medical History: Reports: Arthritis Denies: Gout Skin Medical History: Denies: Eczema, Psoriasis Psychiatric Medical History: Denies: Depression Hematology: Denies: Anemia, Sickle Cell Disease, Bleeding Tendencies Infectious Medical History: Denies: HIV Past Surgical History Past Surgical History: Reports: Cardiac Catheterization, Coronary Artery Bypass Graft, Coronary Stent, Hysterectomy, Orthopedic Surgery - Knee replacement, Tubal Ligation Denies: Appendectomy, Section, Cholecystectomy, Gastric Bypass Surgery, Herniorrhaphy, Mastectomy, Pacemaker, Tonsillectomy Social History Information Source: Patient Smoking Status: Former Smoker Frequency of Alcohol Use: None Hx Recreational Drug Use: No Drugs: None Hx Prescription Drug Abuse: No - Advance Directive Resuscitation Status: Do Not Resuscitate Family History Family History: Reviewed & Not Pertinent, Hypertension, Malignancy Parental Family History Reviewed: Yes - Family history of heart disease Children Family History Reviewed: Yes Sibling(s) Family History Reviewed.: Yes Medication/Allergy Home Medications: Ascorbic Acid [Vitamin C 500 mg Tablet] 500 mg PO BID 09/29/19 Aspirin [Ecotrin 81 mg EC Tablet] 81 mg PO DAILY 09/29/19 Cranberry Conc/C/Bacill Coag [AZO Cranberry Tablet] 1 each PO DAILY 09/29/19 Cyanocobalamin (Vitamin B-12) [Vitamin B-12] 1,000 mcg PO DAILY 09/29/19 Docusate Sodium [Colace 100 mg Capsule] 100 mg PO BID 09/29/19 Rumely-3 Fatty Acids/Fish Oil [Rumely 3 Fish Oil Softgel] 1 each PO BID 09/29/19 Tramadol HCl [Ultram 50 mg Tablet] 50 mg PO Q12 09/29/19 Vit A/Vit C/Vit E/Zinc/Copper [Preservision Areds Softgel] 1 each PO BID 09/29/19 Ascorbic Acid [Vitamin C 500 mg Tablet] 500 mg PO BID tablet 10/07/19 Cyclosporine 0.05% Oph Emulsio [Restasis 0.05% Oph Emulsion Pf 0.4 ml] 1 drop OU BID droperette 10/07/19 Diltiazem HCl [Cardizem Cd 120 mg Capsule] 120 mg PO Q12 30 Days #60 cap.sr.24h 10/07/19 Docusate Sodium [Colace 100 mg Capsule] 100 mg PO BID capsule 10/07/19 Furosemide [Lasix 20 mg Tablet] 20 mg PO DAILY tablet 10/07/19 Isosorbide Mononitrate [Imdur 60 mg Tablet.er] 60 mg PO QPM 30 Days #30 tab. er.24h 10/07/19 Lisinopril [Prinivil 5 mg Tablet] 2.5 mg PO Q12 30 Days #60 tablet 10/07/19 Magnesium 250 mg PO DAILY 30 Days #30 10/07/19 Pantoprazole Sodium [Protonix [address] Tablet] 20 mg PO Q6AM 30 Days #30 tablet.dr NS 10/07/19 Ubidecarenone [Coq-10] 100 mg PO DAILY 10/07/19 Allergies/Adverse Reactions: levofloxacin [From Levaquin] Adverse Reaction (Mild, Verified 02/04/20 10:52) Diarrhea Review of Systems Constitutional: PRESENT: fatigue, weakness. ABSENT: fever(s), headache(s) Eyes: ABSENT: visual disturbances Ears: ABSENT: hearing changes Respiratory: ABSENT: hemoptysis Gastrointestinal: PRESENT: constipation. ABSENT: diarrhea, dysphagia, nausea, vomiting Genitourinary: ABSENT: dysuria, hematuria Musculoskeletal: ABSENT: joint swelling Integumentary: ABSENT: rash, wounds Neurological: PRESENT: syncope Psychiatric: ABSENT: anxiety, depression, homidical ideation, suicidal ideation Endocrine: ABSENT: cold intolerance, heat intolerance, polydipsia, polyuria Physical Exam Vital Signs: Temp Pulse Resp BP Pulse Ox 97.4 F 92 18 154/79 H 03/21/20 09:54 03/21/20 11:01 03/21/20 10:03 03/21/20 11:01 Intake & Output 03/20/20 03/21/20 03/22/20 06:59 06:59 06:59 Weight 74.2 kg General appearance: PRESENT: no acute distress, cooperative, well-developed Head exam: PRESENT: atraumatic Eye exam: PRESENT: PERRLA Neck exam: ABSENT: carotid bruit, JVD, lymphadenopathy, thyromegaly Respiratory exam: PRESENT: decreased breath sounds Cardiovascular exam: PRESENT: RRR. ABSENT: diastolic murmur, rubs, systolic murmur Pulses: PRESENT: normal dorsalis pedis pul GI/Abdominal exam: PRESENT: normal bowel sounds, soft. ABSENT: distended, guarding, mass, organolmegaly, rebound, tenderness Rectal exam: PRESENT: deferred Extremities exam: PRESENT: full ROM. ABSENT: calf tenderness, clubbing, pedal edema Neurological exam: PRESENT: alert, awake, oriented to person, oriented to place, oriented to time, oriented to situation, CN II-XII grossly intact. ABSENT: motor sensory deficit Psychiatric exam: PRESENT: appropriate affect, normal mood. ABSENT: homicidal ideation, suicidal ideation Results Laboratory Results: 03/21/20 10:15 03/21/20 10:15 03/21/20 03/21/20 10:15 10:15 WBC 8.8 RBC 3.41 L Hgb 10.7 L Hct 31.9 L MCV 94 MCH 31.3 MCHC 33.5 RDW 13.8 Plt Count 204 Seg Neutrophils % 77.6 Sodium 135.4 L Potassium 4.0 Chloride 105 Carbon Dioxide 24 Anion Gap 6 BUN 24 H Creatinine 0.98 Est GFR ( Amer) > 60 Glucose 102 Calcium 9.2 Total Bilirubin 0.4 AST 18 Alkaline Phosphatase 87 Total Protein 6.2 L Albumin 3.4 L 03/21/20 03/21/20 10:15 10:15 Creatine Kinase 26 L CK-MB (CK-2) 0.83 Troponin I < 0.012 Impressions: Chest X-Ray 03/21/20 11:00 IMPRESSION: No significant interval change. No acute cardiopulmonary disease. Assessment and Plan - Diagnosis (1) Syncope Is this a current diagnosis for this admission?: Yes Plan: 03/21/2020-patient is going to be admitted to [facility] with diagnosis syncope. Aspiration fall seizure precautions are requested. A prophylaxis DVT prophylaxis initiated. Cardiology consult was requested. plan is to restart home medications. Dr. Eugene is consulted to rule out cardiogenic syncope. (2) Benign essential hypertension Is this a current diagnosis for this admission?: No Plan: 03/21/2020-patient has history of chronic essential hypertension blood pressure in the ER is 170/75. Plan is to restart her home medications at this time. Started on IV hydralazine 10 mg every 6 hours as needed for blood pressure more than 170. (3) CAD (coronary artery disease) Qualifiers: Coronary Disease-Associated Artery/Lesion type: bypass graft, autologous artery Associated angina: without angina Qualified Code(s): I25.810 - Atherosclerosis of coronary artery bypass graft(s) without angina pectoris Is this a current diagnosis for this admission?: No Plan: 03/21/2020-patient has history of coronary artery disease recent stress test is abnormal. Patient also has a history of bypass done in 1991. (4) Chronic atrial fibrillation Is this a current diagnosis for this admission?: No Plan: 09/21/2019-patient has history of chronic atrial fibrillation on examination heart is in sinus rhythm EKG shows sinus rhythm. Heart rate is around 90. Patient is not on anticoagulation at this time. (5) CHF (congestive heart failure) Qualifiers: Heart failure type: unspecified Heart failure chronicity: unspecified Qualified Code(s): I50.9 - Heart failure, unspecified Is this a current diagnosis for this admission?: No Plan: 03/21/2020-patient has history of chronic systolic heart failure. On examination not in fluid overload. Plan is to resume her home medications at this time.
--- NOTE | 2020-03-21 12:23 | ER Document Report ---
Entered by MALKA BALBUENA SCRIBE 03/21/20 1109 Acting as scribe for:GRANT OCAMPO IV, MD ED General - General Chief Complaint: Syncope Stated Complaint: SYNCOPAL EPISODE Time Seen by Provider: 03/21/20 10:29 Mode of Arrival: Medic Information source: Patient Notes: This 85 year old female patient presents to the emergency department today with complaints of a syncopal event just prior to arrival. Patient states that she was sitting on the toilet when she "felt it coming". Patient states that she leaned backwards and "passed out". Patient denies chest pain or shortness of breath. This patient's ore fielder (Dr. Todd) got a call from the patient's daughter prior to arrival and he requests "for her to be admitted to [facility] for cardiogenic syncope". TRAVEL OUTSIDE OF THE [place] IN LAST 30 DAYS: No - Related Data Allergies/Adverse Reactions: levofloxacin [From Levaquin] Adverse Reaction (Mild, Verified 02/04/20 10:52) Diarrhea Home Medications: asa, furosemide, iron, isosorbide, lisinopril, lanexa, mag oxide, k+, tramadol Past Medical History - General Information source: Patient - Social History Smoking Status: Former Smoker Cigarette use (# per day): No Frequency of alcohol use: None Drug Abuse: None Lives with: Family Family History: Reviewed & Not Pertinent, Hypertension, Malignancy Patient has homicidal ideation: No - Past Medical History Cardiac Medical History: Reports: Hx Atrial Fibrillation, Hx Congestive Heart Failure, Hx Coronary Artery Disease, Hx Heart Attack, Hx Hypercholesterolemia, Hx Hypertension Pulmonary Medical History: Reports: Hx Pneumonia - 2011 Neurological Medical History: Reports: Hx Cerebrovascular Accident GI Medical History: Reports: Hx Gastroesophageal Reflux Disease Musculoskeletal Medical History: Reports Hx Arthritis Past Surgical History: Reports: Hx Cardiac Catheterization, Hx Cardiac Surgery - "bypass", Hx Coronary Artery Bypass Graft, Hx Coronary Stent, Hx Hysterectomy, Hx Orthopedic Surgery - Knee replacement, Hx Tubal Ligation - Immunizations Hx Diphtheria, Pertussis, Tetanus Vaccination: No Hx Pneumococcal Vaccination: 08/15/19 Review of Systems - Review of Systems Constitutional: No symptoms reported EENT: No symptoms reported Cardiovascular: See HPI, Syncope Respiratory: No symptoms reported Gastrointestinal: No symptoms reported Genitourinary: No symptoms reported Female Genitourinary: No symptoms reported Musculoskeletal: No symptoms reported Skin: No symptoms reported Hematologic/Lymphatic: No symptoms reported Neurological/Psychological: No symptoms reported -: Yes All other systems reviewed and negative Physical Exam - Vital signs Vitals: Temp 97.4 F 03/21/20 09:54 - Notes Notes: Physical Exam: General: Alert, appears well. HEENT: Normocephalic. Atraumatic. PERRL. Extraocular movements intact. Oropharynx clear. Neck: Supple. Non-tender. Respiratory: No respiratory distress. Clear and equal breath sounds bilaterally. Cardiovascular: Regular rate and rhythm. 3/6 crescendo decrescendo murmur. Abdominal: Normal Inspection. Non-tender. No distension. Normal Bowel Sounds. Back: No gross abnormalities. Extremities: Moves all four extremities. Upper extremities: Normal inspection. Normal ROM. Lower extremities: Mild pitting edema to bilateral lower extremities. Neurological: Normal cognition. AAOx4. Normal speech. Psychological: Normal affect. Normal Mood. Skin: Warm. Dry. Normal color. Course - Re-evaluation Re-evalutation: 03/21/20 12:28 Patient informed of need for admission and observation. Patient also informed of conversation with Dr. Eugene. - Vital Signs Vital signs: Temp Pulse Resp BP Pulse Ox 97.4 F 92 18 154/79 H 03/21/20 09:54 03/21/20 11:01 03/21/20 10:03 03/21/20 11:01 - Laboratory Result Diagrams: 03/21/20 10:15 03/21/20 10:15 Laboratory results interpreted by me: 03/21/20 03/21/20 10:15 10:15 RBC 3.41 L Hgb 10.7 L Hct 31.9 L Sodium 135.4 L BUN 24 H Est GFR (MDRD) Non-Af 54 L Creatine Kinase 26 L Total Protein 6.2 L Albumin 3.4 L - Diagnostic Test Radiology reviewed: Reports reviewed - EKG Interpretation by Me Additional EKG results interpreted by me: 03/21/20 12:00 EKG obtained on 03/21/2020 at 095 8 hours was interpreted by this MD. Findings normal sinus rhythm, rate 69, normal axis, P waves preceding QRS complexes, QRS complexes appear narrow, there are no obvious patterns of ST segment elevation or depression present to suggest acute myocardial ischemia or infarction. Impression normal sinus rhythm with nonspecific ST segments. - Consults DR. TODD, CARDIOLOGY Time consulted: 10:45 - Stated he wanted patient admitted for cardiogenic syncope. Also said he wanted to have the patient admitted to [facility] Reason for consultation: 03/21/20 12:02 syncope Consulted provider: will see as inpatient DR. DOVER Time consulted: 11:15 - Dr. Dover agreed to admit pt to [facility] Reason for consultation: 03/21/20 12:29 Syncopal episode with extensive cardiac history Consulted provider: will come to ER Discharge - Discharge Clinical Impression: Syncope Qualifiers: Syncope type: unspecified Qualified Code(s): R55 - Syncope and collapse Condition: Stable Disposition: ADMITTED INPATIENT Admitting Provider: [facility] (Hospitalist) Unit Admitted: [facility] I personally performed the services described in the documentation, reviewed and edited the documentation which was dictated to the scribe in my presence, and it accurately records my words and actions.
[2020-03-21] MEDS: HEPARIN SOD (PORCINE) 5,000 UNIT/ML 1 ML VIAL SUBCUT SCH ×2 (14:35→22:57)
[2020-03-21 14:39] LABS: APPEARANCE,URINE SLIGHTLY-CLOUDY; BILIRUBIN,URINE NEGATIVE (NEGATIVE); COLOR,URINE YELLOW; GLUCOSE, URINE NEGATIVE (NEGATIVE); KETONES,URINE NEGATIVE (NEGATIVE); LEUKOCYTE ESTERASE,URINE SMALL (NEGATIVE); NITRITE,URINE POSITIVE (NEGATIVE); PROTEIN,URINE NEGATIVE (NEGATIVE); URINE SPECIFIC GRAVITY 1.012; UROBILINOGEN,URINE NEGATIVE mg/dL (<2.0)
[2020-03-21] MEDS: PANTOPRAZOLE SODIUM 40 MG TABLET.DR PO SCH (17:12)
[2020-03-21 18:00] LABS: CREATINE KINASE MB 0.88 ng/mL (<4.55)
[2020-03-21 18:01] LABS: TROPONIN I < 0.012 ng/mL
--- NOTE | 2020-03-21 18:10 | EKG REPORT ---
SEVERITY:- ABNORMAL ECG - SINUS RHYTHM PROBABLE INFERIOR INFARCT, AGE INDETERMINATE : Confirmed by: Brennen Hancock MD 21-Mar-2020 18:09:32
[2020-03-21] MEDS ORDERED: RINGERS SOLUTION,LACTATED 1,000 ML IV PRN (19:02)
--- NOTE | 2020-03-21 19:05 | PDOC CONSULTATION ---
Consultation-Blank Consultation: CARDIOLOGY CONSULTATION by Dr. Mary Eugene on 03/21/2020. Patient seen at 930 aM. 60 minutes spent with patient more than 50% time spent in direct patient care. REASON FOR CONSULTATION: PATIENT WITH EPISODE OF SYNCOPE. CONSULT REQUESTING PHYSICIAN: Dr. Dover, [facility]. HISTORY OF PRESENT ILLNESS: Patient very well-known to me is a 85-year-old female with multiple medical problems states this morning while on the toilet when she was straining she had an episode of syncope lasting a few seconds. When she woke up she was not confused. She denies any chest pain or discomfort or palpitations or shortness of breath prior to or after the syncopal episode. There was no postictal state by description. There is no tongue biting and no fecal or urinary incontinence. She has had some blackouts in the past. At present the patient is asymptomatic with no chest pain or discomfort. There is no shortness of breath. There is no arrhythmias seen on the monitor. Past Medical History Cardiac Medical History: Reports: Coronary Artery Disease, Myocardial Infarction,. She has had a history of coronary bypass graft surgery in 1982 in [place]. At that time she had VARGAS placed to the left anterior descending artery, and a saphenous vein graft to the right coronary artery. Since then she has had multiple stents in the saphenous vein graft to the right coronary artery. Her last cardiac catheterization just prior to 2011 showed a patent VARGAS to the LAD. The saphenous vein graft and RCA 100% occluded. The circumflex had only mild disease. She is not had anginal symptoms in a long time. Hyperlipidema, Hypertension, history of proximal atrial fibrillation and SVT. She also in the past has had severe pulmonary hypertension. But recent echocardiogram showed a right ventricular systolic pressure of only 40 mmHg. Pulmonary Medical History: Reports: Pneumonia - 2012 Denies: Asthma, Bronchitis, Chronic Obstructive Pulmonary Disease (COPD), Tuberculosis she has mild pulmonary fibrosis Neurological Medical History: Denies: Seizures. 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 The patient was on anticoagulation for some time but this was stopped due to history of GI bleed. No recent symptoms of CVA recurrence. She seems to have mild dementia. Endocrine Medical History: Denies: Diabetes Mellitus Type 1, Diabetes Mellitus Type 2, Hyperthyroidism, Hypothyroidism GI Medical History: Reports: Gastroesophageal Reflux Disease Denies: Cirrhosis, Hepatitis Musculoskeltal Medical History: Reports: Arthritis Denies: Gout Skin Medical History: Denies: Eczema, Psoriasis Psychiatric Medical History: Denies: Depression Hematology: Denies: Anemia, Bleeding Tendencies Past Surgical History Past Surgical History: Reports: Cardiac Catheterization, Coronary Artery Bypass Graft, Coronary Stent, Hysterectomy, Tubal Ligation Denies: Appendectomy, Section, Cholecystectomy, Gastric Bypass Surgery, Herniorrhaphy, Mastectomy, Pacemaker, Tonsillectomy Social History Smoking Status: Never Smoker Frequency of Alcohol Use: None Hx Recreational Drug Use: No Drugs: None Hx Prescription Drug Abuse: No Family History Family History: Hypertension, Malignancy Parental Family History Reviewed: Yes Children Family History Reviewed: Yes Sibling(s) Family History Reviewed.: Yes Medication/Allergy Home Medications: Aspirin [Ecotrin 81 mg EC Tablet] 81 mg PO DAILY 09/29/19 Cranberry Conc/C/Bacill Coag [AZO Cranberry Tablet] 1 each PO DAILY 09/29/19 [place]-3 Fatty Acids/Fish Oil [[place] 3 Fish Oil Softgel] 1 each PO BID 09/29/19 Tramadol HCl [Ultram 50 mg Tablet] 50 mg PO Q12 09/29/19 Vit A/Vit C/Vit E/Zinc/Copper [Preservision Areds Softgel] 1 each PO BID 09/29/19 Lisinopril [Prinivil 5 mg Tablet] 5 mg PO DAILY 03/21/20 RESUSCITATION STATUS: The patient is a DNR/DNI. Her daughter is her surrogate healthcare decision maker. Current Medications Generic Name Dose Route Start Last Admin Trade Name Freq PRN Reason Stop Dose Admin Acetaminophen 650 mg 03/21/20 12:01 Tylenol 325 Mg Tablet PO 04/20/20 12:00 Q4HP PRN FEVER >101 Heparin Sodium (Porcine) 5,000 unit 03/21/20 14:00 03/21/20 14:35 Heparin Inj 5,000 Units/Ml 1 Ml Vial SUBCUT 04/20/20 13:59 5,000 unit Q8 BOUCHRA Administration Hydralazine HCl 10 mg 03/21/20 12:14 07/07/20 20:10 Apresoline Inj/Pf 20 Mg/1 Ml Sdv IV 04/20/20 12:13 10 mg Q6HP PRN Administration GIVE FOR SBP > [] Lactated Ringer's 1,000 mls @ 76 mls/hr 03/21/20 19:02 03/21/20 20:05 Lactated Ringers 1000 Ml Iv Soln IV 04/20/20 19:01 76 mls/hr CONTINUOUS PRN Administration THIS MED IS NOT "PRN" Nitroglycerin 1 tab 03/21/20 20:51 Nitrostat 0.4 Mg (1/150 Gr) Tabs 25/Bottle SL 04/20/20 20:50 Q5MP PRN CHEST PAIN Ondansetron HCl 4 mg 03/21/20 12:01 Zofran Inj/Pf 4 Mg/2 Ml Sdv IV 04/20/20 12:00 Q8HP PRN FOR NAUSEA/VOMITING Pantoprazole Sodium 40 mg 03/21/20 17:00 03/21/20 17:[address] Tablet PO 04/20/20 16:59 40 mg BID@0600,1700 [facility] Administration Discontinued Medications Generic Name Dose Route Start Last Admin Trade Name Freq PRN Reason Stop Dose Admin Sodium Chloride 1,000 mls @ 0 mls/hr 03/21/20 10:30 03/21/20 11:42 Nacl 0.9% 1000 Ml Iv Soln IV 03/21/20 10:31 Infused BOLUS ONE Infusion Wide Open REVIEW OF SYSTEMS: Constitutional: Denies any fever chills or rigors. Complains of generalized fatigue and weakness. HEAD: No history of headaches or head injury. EYES: No history of amblyopia diplopia no history of amaurosis fugax. EARS: The patient is hard of hearing but there is no tinnitus. There is no vertigo. NOSE: There is no nosebleeds. There is no nasal polyps. There is no hayfever. MOUTH: No altered taste sensation. No ulcers in mouth. THROAT: No odynophagia or dysphagia no recurrent sore throats. SKIN: No pruritus. No LH discoloration of the skin. THERE IS NO PETECHIA OR ECCHYMOSIS. Neck: No neck swelling or neck pain. LUNGS: She has a history of mild pulmonary fibrosis. No recent symptoms of cough or sputum production. No wheezing. No history of sleep apnea. HEART: As mentioned earlier in past medical history history she has significant coronary artery disease. No recent anginal symptoms. History patient admitted with brief syncope. This most likely is vasovagal since the patient was straining on the toilet commode. She has had past history of blackouts/syncope. No particular reason has been found. She has a past history of proximal atrial fibrillation, with no recent recurrence. She has a history of SVT paroxysmal. The last episode was when she was in the hospital a few months ago she had a short asymptomatic SVT which was terminated with Cardizem she at that time had severe pulmonary hypertension which subsequently resolved. She also has a history of hypertension hyperlipidemia. GI: Past history of GI bleed. She also has B12 deficiency causing anemia. There is no fatty food intolerance. No recent black tarry stools or hematemesis or melena. No nausea vomiting.: There is no prior prior history of chronic kidney disease. But the patient is GFR slightly reduced. Most likely the patient is slightly dehydrated. MUSCULOSKELETAL: History of significant arthritis the patient takes tramadol for this. No collagen vascular disease. VASCULAR: No history of bleeding diathesis or clotting disorders. No history of DVT. HEMATOLOGICAL: History of anemia secondary to B12 deficiency. Her hemoglobin is stable. MILK VENDOR: Prior history of CVA thought to be embolic. Work-up was negative. Most likely secondary to atheroma or secondary to paroxysmal atrial fibrillation. Due to anemia she is not on chronic oral anticoagulation. Psychiatric: She has mild dementia.. But no suicidal ideation or homicidal ideation. PHYSICAL EXAMINATION: General appearance: PRESENT: other - She is mildly obese. In no acute distress. She is well-groomed. Selected Entries 03/21/20 03/21/20 03/21/20 09:54 10:03 11:00 Temperature 97.4 F Heart Rate ( 73 Monitors) Respiratory 18 Rate Blood Pressure 120/54 L Blood Pressure 76 Mean O2 Sat by Pulse 96 Oximetry Head exam: PRESENT: atraumatic, normocephalic Eye exam: PRESENT: EOMI, other - Today there is no conjunctival pallor. There is no scleral icterus. Ear exam: PRESENT: normal external ear exam, TM's normal bilaterally Mouth exam: PRESENT: moist, tongue midline Throat exam: PRESENT: other - There is no redness of the oropharynx. There is no exudates. Neck exam: PRESENT: other - Carotids are equal. Neck is supple. There is mild JVD present. There is no lymphadenopathy. There is no goiter. There is no accessory muscle respiration use. Respiratory exam: PRESENT: other - Breath sounds today seem to be of normal intensity. There is very few crepitant rales in the bases of interstitial fibrosis no rales of CHF. Pulses: PRESENT: normal carotid pulses, normal radial pulses, normal femoral pulses, +1 pedal pulses bilateral Vascular exam: PRESENT: normal capillary refill GI/Abdominal exam: PRESENT: other - Abdomen is soft. There is no hepatosplenomegaly. Bowel sounds are well heard. There is no tender areas masses. Rectal exam: PRESENT: deferred Extremities exam: PRESENT: Race bilateral pedal edema.other - There is no DVT. There is no cyanosis or clubbing. There is no evidence of cellulitis. There is no calf tenderness. Musculoskeletal exam: PRESENT: other - There is no acute joint swelling or redness. Neurological exam: PRESENT: other - Patient is conscious awake alert oriented x3. With no focal deficits. Psychiatric exam: PRESENT: other - The patient's judgment and insight are intact her affect is normal. EKG: Sinus rhythm old inferior wall OK. No acute ischemia or injury. [EKG reviewed by me and interpreted by me]. Labs- Entire Visit 03/21/20 03/21/20 03/21/20 10:15 10:15 10:15 WBC 8.8 RBC 3.41 L Hgb 10.7 L Hct 31.9 L MCV 94 MCH 31.3 MCHC 33.5 RDW 13.8 Plt Count 204 Lymph % (Auto) 15.6 Mcculloch % (Auto) 5.2 Eos % (Auto) 1.3 Baso % (Auto) 0.3 Absolute Neuts (auto) 6.8 Absolute Lymphs (auto) 1.4 Absolute Monos (auto) 0.5 Absolute Eos (auto) 0.1 Absolute Basos (auto) 0.0 Seg Neutrophils % 77.6 PT INR APTT Sodium 135.4 L Potassium 4.0 Chloride 105 Carbon Dioxide 24 Anion Gap 6 BUN 24 H Creatinine 0.98 Est GFR ( Amer) > 60 Est GFR (MDRD) Non-Af 54 L Glucose 102 Calcium 9.2 Total Bilirubin 0.4 Direct Bilirubin 0.0 Neonat Total Bilirubin Not Reportable Neonat Direct Bilirubin Not Reportable Neonat Indirect Bili Not Reportable AST 18 ALT 8 Alkaline Phosphatase 87 Creatine Kinase 26 L CK-MB (CK-2) 0.83 Troponin I < 0.012 Total Protein 6.2 L Albumin 3.4 L Urine Color Urine Appearance Urine pH Ur Specific [place] Urine Protein Urine Glucose (UA) Urine Ketones Urine Blood Urine Nitrite Urine Bilirubin Urine Urobilinogen Ur Leukocyte Esterase Urine WBC (Auto) Urine RBC (Auto) U Hyaline Cast (Auto) Urine Bacteria (Auto) Squamous Epi Cells Auto Urine Mucus (Auto) Urine Ascorbic Acid 03/21/20 03/21/20 03/21/20 10:15 14:16 17:08 WBC RBC Hgb Hct MCV MCH MCHC RDW Plt Count Lymph % (Auto) M[place]ulloch % (Auto) Eos % (Auto) Baso % (Auto) Absolute Neuts (auto) Absolute Lymphs (auto) Absolute Monos (auto) Absolute Eos (auto) Absolute Basos (auto) Seg Neutrophils % PT 13.7 INR 1.05 APTT 28.5 Sodium Potassium Chloride Carbon Dioxide Anion Gap BUN Creatinine Est GFR ( Amer) Est GFR (MDRD) Non-Af Glucose Calcium Total Bilirubin Direct Bilirubin Neonat Total Bilirubin Neonat Direct Bilirubin Neonat Indirect Bili AST ALT Alkaline Phosphatase Creatine Kinase CK-MB (CK-2) 0.88 Troponin I < 0.012 Total Protein Albumin Urine Color YELLOW Urine Appearance SLIGHTLY-CLOUDY Urine pH 6.0 Ur Specific [place] 1.012 Urine Protein NEGATIVE Urine Glucose (UA) NEGATIVE Urine Ketones NEGATIVE Urine Blood NEGATIVE Urine Nitrite POSITIVE H Urine Bilirubin NEGATIVE Urine Urobilinogen NEGATIVE Ur Leukocyte Esterase SMALL H Urine WBC (Auto) 6 Urine RBC (Auto) 1 U Hyaline Cast (Auto) 1 Urine Bacteria (Auto) 1+ Squamous Epi Cells Auto 1 Urine Mucus (Auto) RARE Urine Ascorbic Acid 40 H Chest X-Ray 03/21/20 11:00 IMPRESSION: No significant interval change. No acute cardiopulmonary disease. RECENT OUTPATIENT WORK-up: Echocardiogram done on 02/25/2020: There is mild LVH. LV ejection fraction 70%. There is basal inferior hypokinesis. There is grade 1 diastolic dysfunction. The left atrium cavity is moderately dilated. There is no aortic stenosis. Trace aortic regurgitation. Trace mitral regurgitation. No mitral valve prolapse or mitral stenosis. Mild to moderate tricuspid regurgitation with right ventricle systolic pressure of 40 mmHg, which is mild pulmonary hypertension. No pericardial effusion. IV LEXISCAN CARDIOLITE nuclear stress test done on 03/13/2020: There is moderate area of very mild ischemia of the inferior wall. There is also a small area of scar/OK of the apical interventricular septum. Overall definitely ejection fraction was estimated to be 65%. This area of ischemia is most likely secondary to collaterals to the occluded right coronary artery system from the left side. Hence would recommend would maximize antianginal therapy. IMPRESSION/RECOMMENDATION: 1. Syncope: Most likely secondary to vasovagal. But need to assess to see if the patient has recurrence of SVT or atrial fibrillation. This is unlikely. But will observe the patient on telemetry. 2. Coronary artery disease. History of coronary artery bypass graft surgery history of prior OK. No anginal symptoms. Recent mildly abnormal stress test with mild ischemia in the RCA territory. 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 There is left to right collaterals. This may be the cause of the patient's showing ischemia on the stress test. Hence we will maximize medical therapy. 3. History of coronary artery bypass graft surgery and history of multiple stents in the saphenous vein graft to the right coronary artery. 4. Hypertension. 5. B12 deficiency anemia. 6. 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 7. Prior history of severe pulmonary hypertension. Recent echo shows mild pulmonary hypertension. 8. Mild pulmonary fibrosis: Patient asymptomatic. 9. Probably dehydration causing mild depressed GFR. Would recommend checking the patient's postural blood pressure lying standing and sitting. If this is positive would rehydrate the patient. Medication reviewed medical regimen management plan discussed with the attending The case. Medical history making is of high complexity. 60 minutes spent on this patient more than 50% of time spent in direct patient care. Will follow
[2020-03-21] MEDS ORDERED: NITROGLYCERIN 0.4 MG/TAB 25 TAB/BOTTLE SL PRN (20:51)
[2020-03-21 22:10] LABS: CREATINE KINASE MB 0.89 ng/mL (<4.55)
[2020-03-21 22:11] LABS: TROPONIN I < 0.012 ng/mL
[2020-03-21] MEDS ORDERED: TRAMADOL HCL 50 MG TABLET PO ONE (23:00)
[2020-03-22 03:33] LABS: ABSOLUTE EOSINOPHILS # (AUTO) 0.1 10^3/uL (0.0-0.6); ABSOLUTE LYMPHOCYTES (AUTO) 1.4 10^3/uL (0.5-4.7); ABSOLUTE MONOCYTES (AUTO) 0.4 10^3/uL (0.1-1.4); ABSOLUTE NEUT (AUTO) 2.5 10^3/uL (1.7-8.2); BASOPHILS % (AUTO) 0.4 % (0-2); EOSINOPHILS % (AUTO) 2.2 % (0-6); HEMATOCRIT 29.7 % (36.0-47.0); HEMOGLOBIN 10.2 g/dL (12.0-15.5); LYMPHOCYTES % (AUTO) 31.8 % (13-45); MEAN CORPUSCULAR HEMOGLOBIN 31.4 pg (27.0-33.4); MEAN CORPUSCULAR HGB CONC 34.4 g/dL (32.0-36.0); MEAN CORPUSCULAR VOLUME 91 fl (80-97); MONOCYTES % (AUTO) 10.1 % (3-13); PLATELET COUNT 184 10^3/uL (150-450); RED BLOOD COUNT 3.25 10^6/uL (3.72-5.28); RED CELL DISTRIBUTION WIDTH 13.6 % (11.5-14.0); SEGMENTED NEUTROPHILS % (AUTO) 55.5 % (42-78); TOTAL CELLS COUNTED % (AUTO) 100 %; WHITE BLOOD COUNT 4.4 10^3/uL (4.0-10.5)
[2020-03-22 03:40] LABS: PROTHROMBIN TIME 13.2 SEC (11.4-15.4)
[2020-03-22 03:49] LABS: ALKALINE PHOSPHATASE 81 U/L (38-126); ASPARTATE AMINO TRANSFERASE 15 U/L (14-36); BILIRUBIN,TOTAL 0.3 mg/dL (0.2-1.3); BLOOD UREA NITROGEN 17 mg/dL (7-20); CALCIUM 8.7 mg/dL (8.4-10.2); CHOLESTEROL 196.39 mg/dL (0-200); GLUCOSE 108 mg/dL (75-110); POTASSIUM 3.9 mmol/L (3.6-5.0); TOTAL PROTEIN 5.6 g/dL (6.3-8.2); TRIGLYCERIDES 151 mg/dL (<150)
[2020-03-22 03:54] LABS: CARBON DIOXIDE 27 mmol/L (22-30); CHLORIDE 108 mmol/L (98-107)
[2020-03-22 03:57] LABS: VLDL CHOLESTEROL 30.2 mg/dL (10-31)
[2020-03-22 03:58] LABS: ANION GAP 4 (5-19)
[2020-03-22 04:00] LABS: CREATINE KINASE MB 0.8 ng/mL (<4.55); DIRECT LDL 119 mg/dL (<100); TROPONIN I 0.037 ng/mL
[2020-03-22] MEDS: HEPARIN SOD (PORCINE) 5,000 UNIT/ML 1 ML VIAL SUBCUT SCH ×2 (05:24→13:53)
[2020-03-22] MEDS: PANTOPRAZOLE SODIUM 40 MG TABLET.DR PO SCH ×2 (05:24→17:33)
--- NOTE | 2020-03-22 07:42 | EKG REPORT ---
SEVERITY:- ABNORMAL ECG - SINUS TACHYCARDIA INFERIOR INFARCT, AGE INDETERMINATE : Confirmed by: Brennen Hancock MD 22-Mar-2020 07:41:12
[2020-03-22] MEDS ORDERED: FUROSEMIDE 20 MG TABLET PO SCH (10:00)
[2020-03-22] MEDS ORDERED: LISINOPRIL 5 MG TABLET PO SCH (10:00)
[2020-03-22] MEDS ORDERED: ASCORBIC ACID 500 MG TABLET PO SCH (10:00)
[2020-03-22] MEDS ORDERED: ASPIRIN 81 MG TABLET, ENT COATED PO SCH (10:00)
[2020-03-22] MEDS ORDERED: TRAMADOL HCL 50 MG TABLET PO SCH (10:00)
[2020-03-22] MEDS ORDERED: OMEGA-3 ACID ETHYL ESTERS 1 GM CAPSULE PO SCH (10:00)
[2020-03-22] MEDS ORDERED: [UNRECOGNIZED DRUG - OTHER] PO SCH (10:00)
--- NOTE | 2020-03-22 10:30 | RADIOLOGY REPORT (SQ) ---
EXAM DESCRIPTION: CT HEAD WITHOUT IMAGES COMPLETED DATE/TIME: 03/22/2020 9:44 am REASON FOR STUDY: syncope R55 SYNCOPE AND COLLAPSE COMPARISON: 01/06/2018 TECHNIQUE: Axial images acquired through the brain without intravenous contrast. Images reviewed wi th bone, brain and subdural windows. Additional sagittal and coronal reconstructions were generated. Images stored on PACS. All CT scanners at this facility use dose modulation, iterative reconstruction, and/or weight based d osing when appropriate to reduce radiation dose to as low as reasonably achievable (ALARA). [facility]: Dose Right [facility]: CareDose [facility]: Dose Right [facility]: Teradose 4D [facility]: [employer] RADIATION DOSE: CT Rad equipment meets quality standard of care and radiation dose reduction techniq ues were employed. CTDIvol: 48.6 mGy. DLP: 929 mGy-cm. mGy. LIMITATIONS: None. FINDINGS: VENTRICLES: Prominent, stable. CEREBRUM: No masses. No hemorrhage. No midline shift. Areas of low density in the white matter mos t likely due to chronic micro-vascular ischemic change. More focal areas within the right basal gang gorge compatible with prior lacunar infarcts, stable. No evidence of acute large vascular territory in farction. CEREBELLUM: No masses. No hemorrhage. No alteration of density. No evidence for acute infarction. EXTRAAXIAL SPACES: Mild age-related involutional change. No fluid collections. No masses. ORBITS AND GLOBE: No intra- or extraconal masses. Normal contour of globe without masses. CALVARIUM: No fracture. PARANASAL SINUSES: No fluid or mucosal thickening. SOFT TISSUES: No mass or hematoma. OTHER: No other significant finding. IMPRESSION: No evidence of acute intracranial process. Stable chronic changes of atrophy and microvascular ischemia. EVIDENCE OF ACUTE STROKE: NO. TECHNICAL DOCUMENTATION: JOB ID: [id number] Quality ID # [id number]: Final reports with documentation of one or more dose reduction techniques (e.g., Au tomated exposure control, adjustment of the mA and/or kV according to patient size, use of iterative reconstruction technique) 2010 [employer]- All Rights Reserved Reading location - IP/workstation name: [email or web address]
--- NOTE | 2020-03-22 13:12 | RADIOLOGY REPORT (SQ) ---
EXAM DESCRIPTION: CAROTID DOPPLER IMAGES COMPLETED DATE/TIME: 03/22/2020 12:59 pm REASON FOR STUDY: syncope R55 SYNCOPE AND COLLAPSE COMPARISON: None. TECHNIQUE: Grayscale ultrasound, Doppler velocity and spectra, and color Doppler images acquired of the extra-cranial carotid and vertebral arteries. Images stored on PACS. LIMITATIONS: None. FINDINGS: RIGHT CAROTID CCA Velocities: Within normal limits. ICA Velocities Peak systolic 104 cm/s. End diastolic 30 cm/s. Proximal ICA/CCA peak systolic ratio 1.85. There is plaque in the common carotid, carotid bulb, in the ICA. LEFT CAROTID CCA Velocities: Within normal limits. ICA Velocities Peak systolic 97 cm/s. End diastolic 34 cm/s. Proximal ICA/CCA peak systolic ratio 1.30. Plaque is present in the common carotid, the bulb, any ICA. VERTEBRAL ARTERIES: Antegrade flow. Normal waveforms. SUBCLAVIAN ARTERIES: No finding. OTHER: No other significant finding. IMPRESSION: Atherosclerotic changes with no hemodynamically significant stenosis. COMMENT: Quality ID #[id number]: Velocity criteria are extrapolated from the diameter data as defined by t he Society of Radiologists in Ultrasound Consensus Conference. Radiology 2003: 229; 340-346. TECHNICAL DOCUMENTATION: JOB ID: [id number] 2010 [employer]- All Rights Reserved Reading location - IP/workstation name: [email or web address]
--- NOTE | 2020-03-22 17:39 | PDOC DISCHARGE SUMMARY ---
Impression - Admit/DC Date/PCP Admission Date/Primary Care Provider: 03/21/20 12:19 ETHAN MCMAHON MD Discharge Date: 03/22/20 - Discharge Diagnosis (1) Syncope Is this a current diagnosis for this admission?: Yes (2) CAD (coronary artery disease) Is this a current diagnosis for this admission?: Yes (3) Paroxysmal atrial fibrillation Is this a current diagnosis for this admission?: Yes (4) Essential hypertension Is this a current diagnosis for this admission?: Yes (5) Chronic diastolic (congestive) heart failure Is this a current diagnosis for this admission?: Yes - Assessment Summary: This was likely a vasovagal mediated syncopal event. During her brief admission the patient showed no signs of acute heart failure or acute coronary syndrome. Blood pressures were reasonably controlled. She was noted to be in sinus rhythm by telemetry. She had no further syncopal or near syncopal episodes. - Additional Information Resuscitation Status: Do Not Resuscitate Discharge Diet: Cardiac Discharge Activity: Activity As Tolerated Referrals: ETHAN MCMAHON MD [Primary Care Provider] - 03/29/20 11:00 am JAI SMITH MD [ACTIVE STAFF] - 03/28/20 12:00 pm Home Medications: Aspirin [Ecotrin 81 mg EC Tablet] 81 mg PO DAILY 09/29/19 Cranberry Conc/C/Bacill Coag [AZO Cranberry Tablet] 1 each PO DAILY 09/29/19 Booker-3 Fatty Acids/Fish Oil [Booker 3 Fish Oil Softgel] 1 each PO BID 09/29/19 Tramadol HCl [Ultram 50 mg Tablet] 50 mg PO Q12 09/29/19 Vit A/Vit C/Vit E/Zinc/Copper [Preservision Areds Softgel] 1 each PO BID 09/29/19 Ascorbic Acid [Vitamin C 500 mg Tablet] 500 mg PO BID tablet 10/07/19 Furosemide [Lasix 20 mg Tablet] 20 mg PO DAILY tablet 10/07/19 Isosorbide Mononitrate [Imdur 60 mg Tablet.er] 60 mg PO QPM 30 Days #30 tab.er.24h 10/07/19 Lisinopril [Prinivil 5 mg Tablet] 5 mg PO DAILY 03/21/20 History of Present Illiness History of Present Illness: SUNITA BALLESTEROS is a 85 year old female with a complex cardiac medical history had a syncopal episode while straining on the toilet. It was likely vasovagal since she was not disoriented or confused only lost consciousness for matter of seconds. She was completely oriented when she recovered. She had no chest pain, palpitations or diaphoresis. Hospital Course Hospital Course: Benign hospital course. Dr. Alvarado saw the patient. CT scanning of the head and carotid artery Doppler studies revealed no acute cranial lesions and no significant carotid artery stenosis. After discussion with Dr. Alvarado it was felt that the patient was in fact safe for discharge and she was discharged home with follow-up scheduled with Dr. Alvarado next week. Physical Exam Vital Signs: Temp Pulse Resp BP Pulse Ox 97.7 F 67 16 144/59 H 99 03/22/20 13:03 03/22/20 14:00 03/22/20 13:03 03/22/20 13:03 03/22/20 13:03 Intake & Output 03/21/20 03/22/20 03/23/20 06:59 06:59 06:59 Intake Total 1437 1240 Output Total 1450 775 Balance -13 465 Weight 71 kg General appearance: PRESENT: no acute distress Respiratory exam: PRESENT: clear to auscultation wojciech, symmetrical, unlabored. ABSENT: rales, rhonchi, tachypnea, wheezes Cardiovascular exam: PRESENT: RRR, +S1, +S2 GI/Abdominal exam: PRESENT: normal bowel sounds, soft. ABSENT: distended, guarding, tenderness Results Laboratory Results: WBC 4.4 10^3/uL (4.0-10.5) 03/22/20 03:24 RBC 3.25 10^6/uL (3.72-5.28) L 03/22/20 03:24 Hgb 10.2 g/dL (12.0-15.5) L 03/22/20 03:24 Hct 29.7 % (36.0-47.0) L 03/22/20 03:24 MCV 91 fl (80-97) 03/22/20 03:24 MCH 31.4 pg (27.0-33.4) 03/22/20 03:24 MCHC 34.4 g/dL (32.0-36.0) 03/22/20 03:24 RDW 13.6 % (11.5-14.0) 03/22/20 03:24 Plt Count 184 10^3/uL (150-450) 03/22/20 03:24 Lymph % (Auto) 31.8 % (13-45) 03/22/20 03:24 Cochran % (Auto) 10.1 % (3-13) 03/22/20 03:24 Eos % (Auto) 2.2 % (0-6) 03/22/20 03:24 Baso % (Auto) 0.4 % (0-2) 03/22/20 03:24 Absolute Neuts (auto) 2.5 10^3/uL (1.7-8.2) 03/22/20 03:24 Absolute Lymphs (auto) 1.4 10^3/uL (0.5-4.7) 03/22/20 03:24 Absolute Monos (auto) 0.4 10^3/uL (0.1-1.4) 03/22/20 03:24 Absolute Eos (auto) 0.1 10^3/uL (0.0-0.6) 03/22/20 03:24 Absolute Basos (auto) 0.0 10^3/uL (0.0-0.2) 03/22/20 03:24 Seg Neutrophils % 55.5 % (42-78) 03/22/20 03:24 PT 13.2 SEC (11.4-15.4) 03/22/20 03:24 INR 1.00 03/22/20 03:24 APTT 28.5 SEC (23.5-35.8) 03/21/20 10:15 Sodium 138.9 mmol/L (137-145) 03/22/20 03:24 Potassium 3.9 mmol/L (3.6-5.0) 03/22/20 03:24 Chloride 108 mmol/L (98-107) H 03/22/20 03:24 Carbon Dioxide 27 mmol/L (22-30) 03/22/20 03:24 Anion Gap 4 (5-19) L 03/22/20 03:24 BUN 17 mg/dL (7-20) 03/22/20 03:24 Creatinine 1.03 mg/dL (0.52-1.25) 03/22/20 03:24 Est GFR ( Amer) > 60 (>60) 03/22/20 03:24 Est GFR (MDRD) Non-Af 51 (>60) L 03/22/20 03:24 Glucose 108 mg/dL (75-110) 03/22/20 03:24 Calcium 8.7 mg/dL (8.4-10.2) 03/22/20 03:24 Magnesium 1.9 mg/dL (1.6-2.3) 03/22/20 03:24 Total Bilirubin 0.3 mg/dL (0.2-1.3) 03/22/20 03:24 Direct Bilirubin 0.0 mg/dL (0.0-0.4) 03/22/20 03:24 Neonat Total Bilirubin Not Reportable 03/22/20 03:24 Neonat Direct Bilirubin Not Reportable 03/22/20 03:24 Neonat Indirect Bili Not Reportable 03/22/20 03:24 AST 15 U/L (14-36) 03/22/20 03:24 ALT 7 U/L (<35) 03/22/20 03:24 Alkaline Phosphatase 81 U/L (38-126) 03/22/20 03:24 Creatine Kinase 26 U/L (30-135) L 03/21/20 10:15 CK-MB (CK-2) 0.80 ng/mL (<4.55) 03/22/20 03:24 Troponin I 0.037 ng/mL 03/22/20 03:24 NT-Pro-B Natriuret Pep 2320 pg/mL (<450) H 03/22/20 03:24 Total Protein 5.6 g/dL (6.3-8.2) L 03/22/20 03:24 Albumin 3.0 g/dL (3.5-5.0) L 03/22/20 03:24 Triglycerides 151 mg/dL (<150) H 03/22/20 03:24 Cholesterol 196.39 mg/dL (0-200) 03/22/20 03:24 LDL Cholesterol Direct 119 mg/dL (<100) H 03/22/20 03:24 VLDL Cholesterol 30.2 mg/dL (10-31) 03/22/20 03:24 HDL Cholesterol 35 mg/dL (>40) L 03/22/20 03:24 TSH 0.68 uIU/mL (0.47-4.68) 03/22/20 03:24 Urine Color YELLOW 03/21/20 14:16 Urine Appearance SLIGHTLY-CLOUDY 03/21/20 14:16 Urine pH 6.0 (5.0-9.0) 03/21/20 14:16 Ur Specific [place] 1.012 03/21/20 14:16 Urine Protein NEGATIVE mg/dL (NEGATIVE) 03/21/20 14:16 Urine Glucose (UA) NEGATIVE mg/dL (NEGATIVE) 03/21/20 14:16 Urine Ketones NEGATIVE mg/dL (NEGATIVE) 03/21/20 14:16 Urine Blood NEGATIVE (NEGATIVE) 03/21/20 14:16 Urine Nitrite POSITIVE (NEGATIVE) H 03/21/20 14:16 Urine Bilirubin NEGATIVE (NEGATIVE) 03/21/20 14:16 Urine Urobilinogen NEGATIVE mg/dL (<2.0) 03/21/20 14:16 Ur Leukocyte Esterase SMALL (NEGATIVE) H 03/21/20 14:16 Urine WBC (Auto) 6 /HPF 03/21/20 14:16 Urine RBC (Auto) 1 /HPF 03/21/20 14:16 U Hyaline Cast (Auto) 1 /LPF 03/21/20 14:16 Urine Bacteria (Auto) 1+ /HPF 03/21/20 14:16 Squamous Epi Cells Auto 1 /HPF 03/21/20 14:16 Urine Mucus (Auto) RARE /LPF 03/21/20 14:16 Urine Ascorbic Acid 40 (NEGATIVE) H 03/21/20 14:16 03/21/20 03/21/20 03/21/20 10:15 17:08 21:21 CK-MB (CK-2) 0.83 0.88 0.89 Troponin I < 0.012 < 0.012 < 0.012 NT-Pro-B Natriuret Pep 03/22/20 03/22/20 03:24 03:24 CK-MB (CK-2) 0.80 Troponin I 0.037 NT-Pro-B Natriuret Pep 2320 H Impressions: Chest X-Ray 03/21/20 11:00 IMPRESSION: No significant interval change. No acute cardiopulmonary disease. Carotid Doppler Study 03/22/20 00:00 IMPRESSION: Atherosclerotic changes with no hemodynamically significant stenosis. Head CT 03/22/20 00:00 IMPRESSION: No evidence of acute intracranial process. Stable chronic changes of atrophy and microvascular ischemia. EVIDENCE OF ACUTE STROKE: NO. Plan Health Concerns: Syncopal episode while straining on the toilet. Plan of Treatment: Encourage stool softeners to avoid straining. Continue current medication regimen. No new prescription was required. Follow-up with Dr. Smith and primary care provider. Goals: Reduce or eliminate any further episodes of syncope Time Spent: Less than 30 Minutes Stroke Is this a Stroke Patient?: No Acute Heart Failure - Is this a Heart Failure Patient?: No
[2020-03-22 17:54] VITALS: BP 130/55
[2020-03-22] MEDS ORDERED: ISOSORBIDE MONONITRATE 60 MG TAB.ER.24H PO SCH (18:00)
--- NOTE | 2020-03-22 22:40 | Progress Note ---
Provider Note Provider Note: CARDIOLOGY PROGRESS NOTE by Dr. Mary Eugene on 03/22/2020. SUBJECTIVE: The patient has no further episode of syncope. She had a non- cardiac short episode of chest pain yesterday with no EKG changes. There is no recurrence of syncope. There is no arrhythmias seen on the monitor. The patient denies any shortness of breath PND orthopnea. Her CT scan of the head was negative for any acute CVA. Carotid Dopplers showed no severe stenosis. Hence the patient is ready for discharge. PHYSICAL EXAMINATION: The patient is well-built. In no acute distress. Selected Entries 03/22/20 03/22/20 08:10 13:03 Temperature 97.4 F Temperature Axillary Source Pulse Rate 79 Respiratory 17 16 Rate Blood Pressure 170/84 H 144/59 H Blood Pressure 112 87 Mean BP Location Left Arm Right Arm BP Position Supine Sitting O2 Sat by Pulse 100 99 Oximetry Oxygen Delivery Room Air Room Air Method Head exam: PRESENT: atraumatic, normocephalic Eye exam: PRESENT: EOMI, other - Today there is no conjunctival pallor. There is no scleral icterus. Ear exam: PRESENT: normal external ear exam, TM's normal bilaterally Mouth exam: PRESENT: moist, tongue midline Throat exam: PRESENT: other - There is no redness of the oropharynx. There is no exudates. Neck exam: PRESENT: other - Carotids are equal. Neck is supple. There is mild JVD present. There is no lymphadenopathy. There is no goiter. There is no accessory muscle respiration use. Respiratory exam: PRESENT: other - Breath sounds today seem to be of normal intensity. There is very few crepitant rales in the bases of interstitial fibrosis no rales of CHF. Pulses: PRESENT: normal carotid pulses, normal radial pulses, normal femoral pulses, +1 pedal pulses bilateral Vascular exam: PRESENT: normal capillary refill GI/Abdominal exam: PRESENT: other - Abdomen is soft. There is no hepatosplenomegaly. Bowel sounds are well heard. There is no tender areas masses. Rectal exam: PRESENT: deferred Extremities exam: PRESENT: Race bilateral pedal edema.other - There is no DVT. There is no cyanosis or clubbing. There is no evidence of cellulitis. There is no calf tenderness. Musculoskeletal exam: PRESENT: other - There is no acute joint swelling or redness. Neurological exam: PRESENT: other - Patient is conscious awake alert oriented x3. With no focal deficits. Psychiatric exam: PRESENT: other - The patient's judgment and insight are intact her affect is normal. Chest X-Ray 03/21/20 11:00 IMPRESSION: No significant interval change. No acute cardiopulmonary disease. Carotid Doppler Study 03/22/20 00:00 IMPRESSION: Atherosclerotic changes with no hemodynamically significant stenosis. Head CT 03/22/20 00:00 IMPRESSION: No evidence of acute intracranial process. Stable chronic changes of atrophy and microvascular ischemia. EVIDENCE OF ACUTE STROKE: NO. Labs- All tests 24 hr 03/22/20 03/22/20 03/22/20 03:24 03:24 03:24 WBC 4.4 RBC 3.25 L Hgb 10.2 L Hct 29.7 L MCV 91 MCH 31.4 MCHC 34.4 RDW 13.6 Plt Count 184 Lymph % (Auto) 31.8 Wright % (Auto) 10.1 Eos % (Auto) 2.2 Baso % (Auto) 0.4 Absolute Neuts (auto) 2.5 Absolute Lymphs (auto) 1.4 Absolute Monos (auto) 0.4 Absolute Eos (auto) 0.1 Absolute Basos (auto) 0.0 Seg Neutrophils % 55.5 PT 13.2 INR 1.00 Sodium Potassium Chloride Carbon Dioxide Anion Gap BUN Creatinine Est GFR ( Amer) Est GFR (MDRD) Non-Af Glucose Calcium Magnesium Total Bilirubin Direct Bilirubin Neonat Total Bilirubin Neonat Direct Bilirubin Neonat Indirect Bili AST ALT Alkaline Phosphatase CK-MB (CK-2) 0.80 Troponin I 0.037 NT-Pro-B Natriuret Pep Total Protein Albumin Triglycerides Cholesterol LDL Cholesterol Direct VLDL Cholesterol HDL Cholesterol TSH 03/22/20 03/22/20 03/22/20 03:24 03:24 03:24 WBC RBC Hgb Hct MCV MCH MCHC RDW Plt Count Lymph % (Auto) Wright % (Auto) Eos % (Auto) Baso % (Auto) Absolute Neuts (auto) Absolute Lymphs (auto) Absolute Monos (auto) Absolute Eos (auto) Absolute Basos (auto) Seg Neutrophils % PT INR Sodium 138.9 Potassium 3.9 Chloride 108 H Carbon Dioxide 27 Anion Gap 4 L BUN 17 Creatinine 1.03 Est GFR ( Amer) > 60 Est GFR (MDRD) Non-Af 51 L Glucose 108 Calcium 8.7 Magnesium 1.9 Total Bilirubin 0.3 Direct Bilirubin 0.0 Neonat Total Bilirubin Not Reportable Neonat Direct Bilirubin Not Reportable Neonat Indirect Bili Not Reportable AST 15 ALT 7 Alkaline Phosphatase 81 CK-MB (CK-2) Troponin I NT-Pro-B Natriuret Pep 2320 H Total Protein 5.6 L Albumin 3.0 L Triglycerides 151 H Cholesterol 196.39 LDL Cholesterol Direct 119 H VLDL Cholesterol 30.2 HDL Cholesterol 35 L TSH 0.68 IMPRESSION/RECOMMENDATION: 1. Syncope: Most likely secondary to vasovagal. But need to assess to see if the patient has recurrence of SVT or atrial fibrillation. This is unlikely. But will observe the patient on telemetry. 2. Coronary artery disease. History of coronary artery bypass graft surgery history of prior ND. No anginal symptoms. Recent mildly abnormal stress test with mild ischemia in the RCA territory. 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 There is left to right collaterals. This may be the cause of the patient's showing ischemia on the stress test. Hence we will maximize medical therapy. 3. History of coronary artery bypass graft surgery and history of multiple stents in the saphenous vein graft to the right coronary artery. 4. Hypertension. 5. B12 deficiency anemia. 6. 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 7. Prior history of severe pulmonary hypertension. Recent echo shows mild pulmonary hypertension. 8. Mild pulmonary fibrosis: Patient asymptomatic. 9. Probably dehydration causing mild depressed GFR. Would recommend checking the patient's postural blood pressure lying standing and sitting. If this is positive would rehydrate the patient. Medication reviewed medical regimen management plan discussed with the attending. Discussed findings of CAT scan of the head and carotid Doppler and other lab results with the patient in detail. As per the patient's request also discussed with significant other Mr. Ronnie Perry. Also discussed with patient's daughter with the patient's permission. Hence 50 minutes spent on this patient. Medical decision making still is of high complexity in spite of this patient being discharged. Will follow the patient in the office next week. The patient has my cell phone number and will call me if she has any problems. We will sign off and follow the patient in the office.
== END 2020-03-22 18:14 | disposition home or self-care (01) ==
LOC: ER 09:47 → INTOOBSV 12:19 → EH 12:19 → 3W 13:29
PROVIDERS: ADMIT Internal Medicine; ATTEND Hospitalist
DX: R55 Syncope and collapse (principal); I25.810 Atherosclerosis of coronary artery bypass graft(s) without angina pectoris; I48.0 Paroxysmal atrial fibrillation; I11.0 Hypertensive heart disease with heart failure; I50.32 Chronic diastolic (congestive) heart failure; D51.9 Vitamin B12 deficiency anemia, unspecified; J84.10 Pulmonary fibrosis, unspecified; F03.90 Unspecified dementia, unspecified severity, without behavioral disturbance, psychotic disturbance, mood disturbance, and anxiety; E66.9 Obesity, unspecified; E78.5 Hyperlipidemia, unspecified; I25.2 Old myocardial infarction; K59.00 Constipation, unspecified; M19.90 Unspecified osteoarthritis, unspecified site; Z66 Do not resuscitate; Z79.82 Long term (current) use of aspirin; Z79.899 Other long term (current) drug therapy; Z95.5 Presence of coronary angioplasty implant and graft; Z86.73 Personal history of transient ischemic attack (TIA), and cerebral infarction without residual deficits; Z95.1 Presence of aortocoronary bypass graft; Z82.49 Family history of ischemic heart disease and other diseases of the circulatory system; Z79.891 Long term (current) use of opiate analgesic; Z87.891 Personal history of nicotine dependence
CPT/HCPCS: 93005 ×2; 99285; 96360; 36415 ×2; 82553 ×2; 82550; 83735; 84443; 85025 ×2; 85610 ×2; 85730; 80053 ×2; 81001; 84484 ×2; 80061; 83880; 93880; 71045; 70450; 93010; 97116; 97161; A9270 ×9; J1644 ×2; J0360; J7030; J7120; J3490